=== PATIENT | female | born 1940 | race Caucasian/White ===

== ENCOUNTER 2020-03-19 16:38 | Emergency (ER) | payer MEDICARE, SELFPAY ==
[2020-03-19 17:01] VITALS: BP 121/67; PULSE 75; RESP 18; TEMP 37; BMI 25.7
--- NOTE | 2020-03-19 17:24 | ECG_ITS ---
Test Reason : STROKE Blood Pressure : / mmHG Vent. Rate : 071 BPM Atrial Rate : 071 BPM P-R Int : 146 ms QRS Dur : 088 ms QT Int : 424 ms P-R-T Axes : 000 001 032 degrees QTc Int : 460 ms Normal sinus rhythm Normal ECG When compared with ECG of 14-MAR-2019 07:20, No significant change was found Referred By: Albin Bejarano Electronically Signed By:ANDREINA DE LEON MD
--- NOTE | 2020-03-19 17:24 | CT_ITS ---
EXAMINATION: CT HEAD WITHOUT CONTRAST CLINICAL INFORMATION: Headache. Dysarthria since this a.m. COMPARISON: None TECHNIQUE: Contiguous axial imaging was performed from the skull base to vertex without intravenous administration of contrast. Coronal and sagittal reformatted images are performed at the CT scanner This CT examination was performed using dose optimization techniques as appropriate, variously including the following: *Automated exposure control *Adjustment of mA and/or kV according to patient size (this includes techniques or standardized protocols for targeted exams where dose is matched to indication/reason for exam; i.e. extremities or head) *Use of iterative reconstruction technique DLP: 699 mGy-cm FINDINGS: There is no evidence of acute intracranial hemorrhage or territorial infarction. No abnormal mass effect or midline shift is seen. Connor to white matter differentiation is well preserved. No extra-axial fluid collections are identified. There is atrophy with prominence of the ventricles and the sulci and hypodensity of the periventricular white matter due to chronic small vessel ischemic disease. There are vascular calcifications of the internal carotid arteries bilaterally. The osseous structures and soft tissues are normal. Lobular mucosal thickening at the dependent right maxillary sinus. The mastoid air cells and middle ear cavities are normally aerated. CT/CT head/brain wo con IMPRESSION: No acute intracranial pathology.
[2020-03-19 17:50] LABS: Glucose, Whole Blood 78 mg/dL (60-115)
--- NOTE | 2020-03-19 18:22 | ED.NEUROSD ---
HPI - Neuro Symptoms/Deficit General Chief Complaint: Stroke Stated Complaint: STRKE LIKE SX PER FAM @ 3PM Time Seen by Provider: 03/19/20 17:24 Source: patient Mode of arrival: ambulatory Limitations: no limitations History of Present Illness HPI Narrative: patient's history of occasional migraine headaches had headache left-sided around 21:00 yesterday similar to migraine headache got better when she woke up in the morning around 11:00 o'clock when she called her daughter she noticed that she is not speaking the right words patient denies any headache at that time after arrival patient still had some word-finding difficulty speaking the wrong word but comprehension is normal and articulation is normal no focal deficit Onset (ago): hour(s) Time: 11:00 Timing confirmed by: family member Location: speech History of same: No Severity: mild Relieving factors: none Exacerbating factors: none Context: sudden onset On Anticoagulants: No Associated symptoms: denies other symptoms and headaches Treatments Prior to Arrival: none Related Data Previous Rx's Medication Instructions Recorded aspirin 81 mg PO DAILY #30 tab 03/19/20 Allergies Allergy/AdvReac Type Severity Reaction Status Date / Time No Known Allergies Allergy Unverified 01/30/20 16:04 [No Known Allergies*] Review of Systems Review of Systems: REVIEW OF SYSTEMS: Pertinent positives and negatives are stated above in the history. GEN: no fevers, chills, fatigue HEENT: no nasal congestion, sore throat, ear pain NEURO: no dizziness, focal weakness PULM: no cough, shortness of breath CV: no chest pain, palpitations, LE edema ABD: no abdominal pain, nausea, vomiting, diarrhea : no dysuria, urgency, frequency SKIN: no rash ROS otherwise negative x 10 PMFSH Social History Social History Alcohol intake: unknown Smoking Status: Unknown if ever smoked Use of substances other than those prescribed or required for medical reasons: No Advance Directives: No Advance Directives Information Provided: Yes Physical Exam Vital Signs: Vital Signs: Last Vital Signs Temp 98.6 F 03/19/20 17:01 Pulse 79 03/19/20 20:00 Resp 15 03/19/20 20:00 BP 147/56 H 03/19/20 20:00 Pulse Ox 98 03/19/20 20:00 Body Mass Index 25.7 VITAL SIGNS: Reviewed. GENERAL: Well developed, well nourished, in no acute distress. HEAD: Normocephalic/atraumatic, EYES: PERRLA No pallor/icterus noted NOSE: Nares patent bilateral OROPHARYNX: Oral mucosa moist no oral lesions NECK: Supple, no adenopathy LUNGS: Normal breath sounds. No adventitious sounds or accessory muscle use CARDIOVASCULAR: Regular rate and rhythm without noted murmurs, no JVD or lower extremity edema. ABDOMEN: Soft, non-tender, non-distended with normal bowel sounds. No rigidity. No guarding. No palpable masses or hernias noted MUSCULOSKELETAL: No tenderness, deformities, EXTREMITIES: No cyanosis or edema. SKIN: no rashes, ulcerations, jaundice, pallor, or petechiae NEUROLOGIC: Alert and oriented x 3. Strength and sensation to light touch were grossly intact normal speech Course Course Course Narrative: patient's CT head is negative for any acute infarct also CTA head and neck without any acute occlusion patient's symptoms likely from TIA symptoms have improved and back to normal at this time patient advised to take aspirin daily and follow up with neurologist MDM - Neuro Symptoms/Deficit Lab Data Result diagrams: 03/19/20 18:53 03/19/20 18:54 Labs: Lab Results 03/19/20 03/19/20 03/19/20 Range/Units 17:45 18:53 18:54 WBC 6.2 (4.8-10.8) X10*3/uL RBC 3.82 L (4.20-5.50) X10*6/uL Hgb 12.8 (12.0-16.0) g/dl Hct 38.4 (37-47) % MCV 100.5 H (80-98) fL MCH 33.5 H (27.0-33.0) pg MCHC 33.3 (31.0-35.0) g/dl RDW 13.6 (11.0-16.0) % Plt Count 211 (160-400) X10*3/uL MPV 9.9 (9.4-12.3) fL Immature Gran % (Auto) 0.3 (0.0-0.4) % Neut % (Auto) 62.9 (45-73) % Lymph % (Auto) 28.9 (20-40) % Nicholas % (Auto) 5.5 (2-11) % Eos % (Auto) 2.1 (0-4) % Baso % (Auto) 0.3 (0-2) % Lymph # (Auto) 1.8 (1.2-4.9) X10*3/uL Nicholas # (Auto) 0.3 (0.1-1.2) X10*3/uL Eos # (Auto) 0.1 (0.0-0.4) X10*3/uL Baso # (Auto) 0.0 (0.0-0.2) X10*3/uL Abs Immat Gran (auto) 0.02 (0.00-0.03) X10*3/uL Absolute Neuts (auto) 3.9 (2.0-8.3) X10*3/uL Absolute Nucleated RBC 0.000 (0.0-0.012) X10*3/uL Nucleated RBC % (auto) 0.0 (0.0-0.2) /100WBC PT 10.5 L (10.8-13.0) SEC INR 0.9 (0.9-1.1) APTT 40.0 H (24.1-38.0) SEC Sodium (135-145) mmol/L Potassium (3.3-5.1) mmol/l Chloride (96-108) mmol/L Carbon Dioxide (22-29) mmol/L Anion Gap (12-20) BUN (9-16) mg/dL Creatinine (0.5-1.4) mg/dL Estim Creat Clear Calc Estimated GFR POC Glucose 78 (60-115) mg/dL Random Glucose (60-115) mg/dL Calcium (8.4-10.2) mg/dL 03/19/20 Range/Units 18:54 WBC (4.8-10.8) X10*3/uL RBC (4.20-5.50) X10*6/uL Hgb (12.0-16.0) g/dl Hct (37-47) % MCV (80-98) fL MCH (27.0-33.0) pg MCHC (31.0-35.0) g/dl RDW (11.0-16.0) % Plt Count (160-400) X10*3/uL MPV (9.4-12.3) fL Immature Gran % (Auto) (0.0-0.4) % Neut % (Auto) (45-73) % Lymph % (Auto) (20-40) % Nicholas % (Auto) (2-11) % Eos % (Auto) (0-4) % Baso % (Auto) (0-2) % Lymph # (Auto) (1.2-4.9) X10*3/uL Nicholas # (Auto) (0.1-1.2) X10*3/uL Eos # (Auto) (0.0-0.4) X10*3/uL Baso # (Auto) (0.0-0.2) X10*3/uL Abs Immat Gran (auto) (0.00-0.03) X10*3/uL Absolute Neuts (auto) (2.0-8.3) X10*3/uL Absolute Nucleated RBC (0.0-0.012) X10*3/uL Nucleated RBC % (auto) (0.0-0.2) /100WBC PT (10.8-13.0) SEC INR (0.9-1.1) APTT (24.1-38.0) SEC Sodium 144 (135-145) mmol/L Potassium 4.3 (3.3-5.1) mmol/l Chloride 108 (96-108) mmol/L Carbon Dioxide 21 L (22-29) mmol/L Anion Gap 19 (12-20) BUN 29 H (9-16) mg/dL Creatinine 1.66 H (0.5-1.4) mg/dL Estim Creat Clear Calc 27.4 Estimated GFR 30 POC Glucose (60-115) mg/dL Random Glucose 78 (60-115) mg/dL Calcium 8.2 L (8.4-10.2) mg/dL NIH Stroke Scale Internal: Initial- Upon Arrival Level of Consciousness: Alert Level of Consciousness Questions: Answers both questions correctly Level of Consciousness Commands: Performs both tasks correctly Best Gaze: Normal Visual: No visual loss Facial Palsy: Normal Motor Arm (Right): No drift Motor Arm (Left): No drift Motor Leg (Right): No drift Motor Leg (Left): No drift Limb Ataxia: Absent Sensory: Normal Best Language: No aphasia Dysarthia: Normal Extinction and Inattention: No abnormality Score: 0 Discharge Plan Discharge Clinical Impression: Transient cerebral ischemia, Chronic kidney disease Patient Disposition: Home, Self-Care Instructions: Transient Ischemic Attack (ED), Chronic Kidney Disease (ED) Additional Instructions: take baby aspirin daily. Follow-up with neurologist as advised. Report to the ER if recurrence of the symptoms drink plenty of fluids tonight Prescriptions: New aspirin 81 mg tablet,delayed release (DR/EC) 81 mg PO DAILY Qty: 30 RF: 0 Referrals: Kyara Owens MD [Physician] - 1 week Interventions: ED Discharge Assessment Last Done: 03/19/20 20:39 Discharge Date/Time: 03/19/20 20:49
--- NOTE | 2020-03-19 18:31 | CT_ITS ---
EXAMINATION: CT ANGIOGRAM OF THE HEAD CT ANGIOGRAM OF THE NECK CLINICAL INFORMATION: Dysarthria with migraine headache. COMPARISON: CT scan of the head earlier 03/19/2020. TECHNIQUE: Test bolus series followed by intravenous administration 70 mL of Omnipaque 350. Helical imaging was performed in the axial plane from the mediastinum to the skull vertex. A post contrast CT scan of the head was obtained. The degree of stenosis is based off NASCET criteria. The data was processed at the medical technologist microbiology workstation for generation of MIP images. Three-dimensional volume rendered reformatted images were also generated at an offline 3-D workstation. This CT examination was performed using dose optimization techniques as appropriate, variously including the following: *Automated exposure control *Adjustment of mA and/or kV according to patient size (this includes techniques or standardized protocols for targeted exams where dose is matched to indication/reason for exam; i.e. extremities or head) *Use of iterative reconstruction technique DLP: 1463 mGy-cm. FINDINGS: CT Head: There is no evidence of acute intracranial hemorrhage or territorial infarction. No abnormal mass-effect or midline shift is seen. Connor to white matter differentiation is well preserved. No extra-axial fluid collections are identified. There is no abnormal enhancement. There is commensurate prominence the ventricles and sulci consistent with diffuse volume loss. Areas of low attenuation are noted in the periventricular and subcortical white matter, most consistent with chronic microvascular ischemic changes. There are atheromatous calcifications of the bilateral vertebral and cavernous internal carotid arteries. There are no acute osseous findings. There may be a small scalp hematoma in the high left parietal region. The mastoid air cells are well-aerated. There is mucoperiosteal thickening and retention cyst formation in the right maxillary sinus. CTA Neck: There are atheromatous calcifications of the aortic arch. The left vertebral artery arises directly off the arch, which is a normal variant. The great vessels of the neck are patent. There are atheromatous calcifications at the origin of the right subclavian artery. The common carotid arteries are patent bilaterally. There is slightly tortuous. There are atheromatous calcifications at the left carotid bifurcation with less than 50% stenosis. On the right, there is approximately 50% stenosis with calcified and noncalcified atheromatous plaques. More distally in the neck, both internal carotid arteries are patent with uniform caliber. The origins of the vertebral arteries are well-seen. The left vertebral artery is dominant. Both vertebral arteries are patent throughout their cervical course extending intradurally. Nonvascular: The thyroid gland has slightly heterogenous attenuation bilaterally. There are emphysematous changes in the upper lung jernigan bilaterally. There is no cervical lymphadenopathy. The parotid and submandibular glands appear normal. There are relatively extensive spondylitic and facet arthropathic changes in the mid and lower cervical spine. There are also severe spondylitic changes on the right at C2-C3. There are no acute osseous findings. There are periapical lucencies around the roots of right maxillary 2nd and 3rd molar tooth and left mandibular 1st premolar tooth. CTA Head: The supraclinoid internal carotid arteries are patent bilaterally, and the carotid termini appear normal. The middle and anterior cerebral arteries bilaterally demonstrate normal caliber with no evidence of focal stenosis, aneurysm or vascular malformation. There is normal arborization of the middle cerebral artery branches. The anterior communicating artery is normal. In the posterior circulation, the left vertebral artery is dominant, and the right vertebral artery ends primarily in the PICA. The basilar artery appears normal. The left posterior cerebral artery arises primarily off the anterior circulation, which is a normal variant. The posterior cerebral arteries have normal caliber. The venous sinuses opacify normally. CT/CT angio head neck stroke IMPRESSION: CT head and neck: 1. There are no acute bleeds or territorial infarcts. There are no masses or areas of abnormal enhancement. 2. There is diffuse loss and there are chronic microvascular ischemic changes. 3. There is no cervical lymphadenopathy. There are emphysematous changes in the upper lung zones bilaterally. CTA head and neck earlier 1. There are atheromatous changes of the bilateral carotid bifurcations. The central stenosis of the right carotid bifurcation, with less than 50% stenosis on the left. There are no flow-limiting stenoses. 2. Intracranially, there are atheromatous calcifications in the anterior and posterior circulations. There are no aneurysms, focal stenoses or vascular malformations.
[2020-03-19 19:07] LABS: MANUAL DIFF FLAG NO
[2020-03-19] MEDS: iohexoL 350 MG/ML 100 ML INFUS..BTL IV (19:07)
[2020-03-19 19:08] LABS: Basophils Percent Auto 0.3 % (0-2); Eosinophils Absolute Auto 0.1 X10*3/uL (0.0-0.4); Eosinophils Percent Auto 2.1 % (0-4); Hematocrit 38.4 % (37-47); Hemoglobin 12.8 g/dl (12.0-16.0); Imm Gran Abs Auto 0.02 X10*3/uL (0.00-0.03); Imm Gran Pct Auto 0.3 % (0.0-0.4); Lymphocytes Absolute Auto 1.8 X10*3/uL (1.2-4.9); Lymphocytes Percent Auto 28.9 % (20-40); Mean Corpuscular HGB Conc 33.3 g/dl (31.0-35.0); Mean Corpuscular Hemoglobin 33.5 pg (27.0-33.0); Mean Corpuscular Volume 100.5 fL (80-98); Mean Platelet Volume 9.9 fL (9.4-12.3); Monocytes Absolute Auto 0.3 X10*3/uL (0.1-1.2); Monocytes Percent Auto 5.5 % (2-11); Neutrophils Absolute Auto 3.9 X10*3/uL (2.0-8.3); Neutrophils Percent Auto 62.9 % (45-73); Platelet Count 211 X10*3/uL (160-400); Red Blood Count 3.82 X10*6/uL (4.20-5.50); Red Cell Distribution Width 13.6 % (11.0-16.0); White Blood Count 6.2 X10*3/uL (4.8-10.8)
[2020-03-19 19:22] LABS: INTERNATIONAL NORM RATIO 0.9 (0.9-1.1); Prothrombin Time 10.5 SEC (10.8-13.0)
[2020-03-19 19:27] LABS: Anion Gap 19 (12-20); Blood Urea Nitrogen 29 mg/dL (9-16); Calcium 8.2 mg/dL (8.4-10.2); Carbon Dioxide 21 mmol/L (22-29); Chloride 108 mmol/L (96-108); Creatinine Clr Calc Pharmacy 27.4; Estimated Glomerular Filt Rate 30; Glucose Random 78 mg/dL (60-115); Potassium 4.3 mmol/l (3.3-5.1); Sodium 144 mmol/L (135-145)
[2020-03-19 19:37] VITALS: BP 131/80; PULSE 79; RESP 15; O2SAT 98
[2020-03-19 20:00] VITALS: BP 147/56; PULSE 79; RESP 15; O2SAT 98
== END 2020-03-19 20:49 | disposition home or self-care (01) ==
PROVIDERS: Emergency Provider Internal Medicine
DX: G45.9 Transient cerebral ischemic attack, unspecified (principal); N18.9 Chronic kidney disease, unspecified; Z79.899 Other long term (current) drug therapy; Z79.82 Long term (current) use of aspirin
CPT/HCPCS: 36415; 70450; 70496; 70498; 80048; 82947; 85025; 85610; 85730; 93005; 99284; Q9967

== ENCOUNTER 2020-07-31 11:00 | Outpatient (RCR) | payer MEDICARE, SELFPAY | END 2020-08-12 15:50 | disposition other institution (70) | LOC: HO.PTCHIC 11:00 | PROVIDERS: PCP Internal Medicine; Visit Provider Internal Medicine | DX: G57.93 Unspecified mononeuropathy of bilateral lower limbs (principal); M79.605 Pain in left leg; M79.604 Pain in right leg | CPT/HCPCS: 97110; 97112; 97116 ==

== ENCOUNTER 2022-02-01 18:24 | Inpatient (IN) | payer MEDICARE, SELFPAY ==
--- NOTE | ~2022-02-01 | CT_ITS ---
EXAMINATION: CT ABDOMEN AND PELVIS WITH CONTRAST CLINICAL INFORMATION: Vomiting. COMPARISON: CT scan of the abdomen and pelvis dated 02/02/2022. TECHNIQUE: Multidetector volumetric images were obtained from the superior aspect of the liver through the pubic symphysis following administration 85 mL of Omnipaque 350 intravenous contrast. Sagittal and coronal reformatted images were obtained on the technologist's workstation. Oral contrast: No This CT examination was performed using dose optimization techniques as appropriate, variously including the following: *Automated exposure control *Adjustment of mA and/or kV according to patient size (this includes techniques or standardized protocols for targeted exams where dose is matched to indication/reason for exam; i.e. extremities or head) *Use of iterative reconstruction technique DLP: 632 mGy-cm FINDINGS: LUNG BASES: Mild elevation of the right hemidiaphragm. Very small bilateral pleural effusions and compressive atelectasis, right greater than left. No pericardial effusion. LIVER, GALLBLADDER, AND BILIARY TREE: Unremarkable. PANCREAS: Unremarkable. SPLEEN: Unremarkable. ADRENAL GLANDS: Unremarkable. KIDNEYS AND URETERS: Multiple small low-attenuation foci bilaterally demonstrating benign features, not requiring follow-up. No nephrolithiasis or hydroureteronephrosis. BLADDER: Unremarkable. GASTROINTESTINAL TRACT: The stomach is unremarkable. The persistent segment segments of the duodenum are moderately distended containing fluid with transition at the third segment without obstructing abnormality. The remainder of the small bowel shows scattered mild fluid and gas with air-fluid levels without significant dilatation. The terminal ileum is unremarkable. The colon shows scattered mild diverticulosis, most pronounced distally without surrounding abnormality. The pelvic anastomosis is intact. No associated abnormality. PERITONEUM: Mild perihepatic ascites. ABDOMINAL WALL: Increased anasarca, more pronounced inferiorly. LYMPH NODES: No lymphadenopathy. VASCULAR: Unremarkable. PELVIC VISCERA: Unremarkable. OSSEOUS STRUCTURES: Status post posterior fusion from L3 to L5. Anatomic alignment and no hardware abnormality. Moderate multilevel degenerative changes in the thoracolumbar spine. No acute or suspicious abnormality. CT/CT abdomen pelvis w IV con IMPRESSION: 1. Interval decrease in small bowel dilatation with scattered mildly prominent fluid-filled bowel loops and air-fluid levels. Findings are nonspecific, but could represent improving ileus or intermittent partial obstruction. Short-term supine and upright abdominal radiographs are recommended as clinically indicated to assess for change. 2. Mild peritoneal ascites represents mild interval increase. Increased anasarca and pleural effusions as well. 3. Several other incidental findings detailed above without significant change.
--- NOTE | ~2022-02-01 | CT_ITS ---
EXAMINATION: CT ABDOMEN AND PELVIS WITHOUT CONTRAST CLINICAL INFORMATION: Right upper and lower quadrant pain. COMPARISON: None TECHNIQUE: Multidetector volumetric imaging was performed from the superior aspect of the liver through the pubic symphysis. Sagittal and coronal reformatted images were obtained on the technologist's workstation. This CT examination was performed using dose optimization techniques as appropriate, variously including the following: *Automated exposure control *Adjustment of mA and/or kV according to patient size (this includes techniques or standardized protocols for targeted exams where dose is matched to indication/reason for exam; i.e. extremities or head) *Use of iterative reconstruction technique DLP: 574 mGy-cm FINDINGS: LUNG BASES: Elevation of the right hemidiaphragm. Mild bibasilar atelectasis. Coarse mitral annular calcifications. Probable small hiatal hernia. LIVER, GALLBLADDER, AND BILIARY TREE: Normal hepatic size and attenuation. No liver lesion. No biliary ductal dilation. The gallbladder is unremarkable with no evidence of radiopaque gallstones, gallbladder wall thickening, or obvious pericholecystic inflammatory changes. PANCREAS: Unremarkable. SPLEEN: Unremarkable. ADRENAL GLANDS: Unremarkable. KIDNEYS AND URETERS: The kidneys are normal in size, shape, and attenuation. No hydronephrosis, hydroureter, or calculi seen. No perinephric stranding. BLADDER: Unremarkable. GASTROINTESTINAL TRACT: Multiple mildly dilated loops of small bowel in the pelvis and right hemiabdomen including dilated loops located lateral to the ascending colon and interposed between the liver and the ventral abdominal wall. Transition point in the right lower quadrant on coronal image 43, axial image 50 and 51. Colon is decompressed. Mild colonic diverticulosis. No bowel wall thickening or pneumatosis. No free air. Small volume ascites. ABDOMINAL WALL: No significant hernia is appreciated. Coarse calcifications of the ventral abdominal wall at the level of the umbilicus. LYMPH NODES: No lymphadenopathy. VASCULAR: Normal caliber abdominal aorta. Mild to moderate vascular calcifications. PELVIC VISCERA: Status post hysterectomy. OSSEOUS STRUCTURES: No acute fracture or suspicious osseous lesion. Status post L3-L5 posterior spinal fusion with intact fixation. Solid ankylosis of the L3-S1 levels. Advanced multilevel degenerative disc disease in the lower thoracic and lumbar spine. Chronic height loss of several mid to lower thoracic vertebral bodies. Status post right total hip arthroplasty. CT/CT abdomen pelvis wo IV con IMPRESSION: 1. Findings consistent with small bowel obstruction with transition point in the right lower quadrant, which may be due to an adhesion or possibly internal hernia given bowel loops lateralized relative to the right colon and interposed between the liver and ventral abdominal wall. 2. Small volume free fluid/ascites. 3. No pneumatosis, appreciable bowel wall thickening, or evidence of perforation. 4. Elevation right hemidiaphragm.
--- NOTE | ~2022-02-01 | XR_ITS ---
EXAMINATION: XR ABDOMEN KUB CLINICAL INDICATION: Vomiting COMPARISON: Previous KUB 02/10/[address] of the abdomen and pelvis 02/11/2022 TECHNIQUE: AP view of the abdomen. FINDINGS: There are air-filled distended loops of bowel. There is no evidence of free air. There are new left paramedian lower abdominal skin cristo. There is a catheter in the pelvis. There are postsurgical changes to the lower lumbar spine and right hip replacement. XR/XR abdomen 1V IMPRESSION: Distended air-filled loops of bowel. This probably represents a postoperative ileus. Imaging follow-up recommended.
--- NOTE | ~2022-02-01 | CT_ITS ---
EXAMINATION: CT ABDOMEN AND PELVIS WITHOUT CONTRAST CLINICAL INFORMATION: Abdominal pain. Small bowel obstruction. COMPARISON: CT scan abdomen pelvis 02/01/2022 TECHNIQUE: Initial exam was performed without oral or IV contrast. Oral contrast was then administered and a second sequence of images obtained. No IV contrast was used. Multidetector volumetric imaging was performed from the superior aspect of the liver through the pubic symphysis. Sagittal and coronal reformatted images were obtained on the technologist's workstation. This CT examination was performed using dose optimization techniques as appropriate, variously including the following: *Automated exposure control *Adjustment of mA and/or kV according to patient size (this includes techniques or standardized protocols for targeted exams where dose is matched to indication/reason for exam; i.e. extremities or head) *Use of iterative reconstruction technique DLP: 772 mGy-cm FINDINGS: Exam limited by breathing motion. Patient's arms over the lower chest causes artifact. LUNG BASES: There is airspace disease of atelectasis or pneumonia with small air bronchograms at the right lung base. The right diaphragm is elevated above the left. Heart size enlarged. Calcifications of the mitral valve annulus. Calcifications of the aortic valve. LIVER, GALLBLADDER, AND BILIARY TREE: The liver is normal in size, shape, and attenuation. No focal hepatic lesion or biliary ductal dilatation is present. The gallbladder is unremarkable with no evidence of radiopaque gallstones, gallbladder wall thickening, or obvious pericholecystic inflammatory changes. PANCREAS: Unremarkable. SPLEEN: Unremarkable. ADRENAL GLANDS: Unremarkable. KIDNEYS AND URETERS: The kidneys are normal in size, shape, and attenuation. No hydronephrosis, hydroureter, or calculi seen. No perinephric stranding. BLADDER: Unremarkable. GASTROINTESTINAL TRACT: There is a distal small bowel obstruction. Small bowel loops are dilated lower right pelvis where there is a transition point. The terminal ileum is decompressed. There is fecal-like material within the distal small bowel at the point of obstruction. Small bowel obstruction slightly worse in severity than prior exam of 02/01/2022. The large bowel is decompressed. There is small volume of stool and some gas in the right colon. No bowel wall thickening or edema. No abdominal mass or inflammation. Small volume of fluid in the cul-de-sac. No evidence of mesenteric twist. Normal variant of bowel interposed between the liver and the abdominal wall. ABDOMINAL WALL: There are coarse calcifications at the umbilicus. No ventral wall hernia. LYMPH NODES: Normal. VASCULAR: Scattered vascular calcifications of aorta. No aneurysm. PELVIC VISCERA: Status post hysterectomy. No pelvic mass. OSSEOUS STRUCTURES: Status post fusion with transpedicular screws and bilateral laminectomy L3-L5. Osseous fusion L5-S1. Multilevel degenerative spondylosis of the thoracic and lumbar spine. Status post right hip replacement. CT/CT abdomen pelvis wo IV con IMPRESSION: Distal small bowel obstruction with transition point in the low pelvis. No bowel wall thickening or edema. No mass evident. Small volume of fluid in the cul-de-sac. No inflammation or free air. Small bowel obstruction slightly worse than prior study 02/01/2022. Fleischner guidelines were followed.
--- NOTE | ~2022-02-01 | XR_ITS ---
EXAMINATION: XR CHEST CLINICAL INFORMATION: Congestion COMPARISON: 02/03/2022 TECHNIQUE: Frontal view of the chest was obtained. FINDINGS: There is elevation of the right hemidiaphragm, with suspected adjacent basilar atelectasis. Additional subsegmental atelectasis is present in the mid to basilar left lung. No evidence of pneumothorax or significant pleural effusion. Central vasculature appears somewhat prominent, without overt edema. Cardiac silhouette is prominent though may be accentuated by low lung volumes. Severe degenerative change of the right glenohumeral joint. Degenerative changes are also noted in the spine. XR/XR chest 1V IMPRESSION: Elevated right hemidiaphragm with suspected adjacent basilar atelectasis. Central vasculature appears somewhat prominent, without overt edema.
--- NOTE | ~2022-02-01 | XR_ITS ---
EXAMINATION: XR CHEST CLINICAL INFORMATION: Wheezing and dyspnea. COMPARISON: 02/08/2022 chest radiograph. TECHNIQUE: Frontal view of the chest was obtained. FINDINGS: Support devices: Interval removal of left internal jugular central venous catheter. Moderate elevation right hemidiaphragm. Increased opacities in the left mid and lower lung field. The heart and mediastinal structures are unremarkable. XR/XR chest 1V IMPRESSION: Increased opacities in the left mid and lower lung jernigan suggest infiltrates and/or atelectasis.
--- NOTE | ~2022-02-01 | XR_ITS ---
EXAMINATION: XR ABDOMEN COMPLETE CLINICAL INDICATION: Vomiting. COMPARISON: CT abdomen and pelvis from 02/02/2022. TECHNIQUE: 3 views of the abdomen. FINDINGS: Although small bowel loops are mildly dilated and have air-fluid levels, the degree of bowel dilatation has decreased/improved compared to 02/02/2022. The bowel gas is observed to level the rectum. Skin cristo project over the abdominal wall. Diverticula of the descending colon are visualized. No evidence of pneumoperitoneum. No renal calculi. Instrumented posterior spinal fusion at L3-L5 and laminectomy defects of the lower lumbar spine. Degenerative disc disease of the visualized lower thoracic and lumbar spine. The visualized right total hip arthroplasty hardware is well-positioned. XR/XR abdomen 3V IMPRESSION: Loops of small bowel are mildly dilated and have air-fluid levels. The degree of bowel distention is significantly improved compared to 02/02/2022. This could represent mild residual dilatation from recently treated bowel obstruction or mild postoperative ileus. No evidence of a pneumoperitoneum.
--- NOTE | ~2022-02-01 | FL_ITS ---
EXAMINATION: FL SMALL BOWEL SERIES CLINICAL INFORMATION: Vomiting, postop day 10. COMPARISON: KUB 02/13/2022 and 02/15/2022. TECHNIQUE: Following a nurse leader image of the abdomen, contrast was administered orally, and interval abdominal radiographs were performed to assess for contrast progression through the small bowel. Following contrast transit through the small bowel and into the colon, the patient was placed on the fluoroscopy table, and multiple spot images were obtained. FINDINGS: Ecologist Technician image of the abdomen demonstrates partially obstructed small bowel loops likely postop ileus. There is the right hip prosthesis and posterior spinal hardware and disc prosthesis for lumbar spine fusion. There is abnormal transit time of contrast material through the small bowel, with contrast present in the colon by 9.5 hours. Small bowel loops are mildly prominent throughout the entire abdomen. The jejunal and ileal fold patterns are normal, without evidence of abnormal thickening. No fixed regions of luminal narrowing are seen to suggest stricturing. The terminal ileum demonstrates a normal appearance. FLUOROSCOPY TIME: 0 DOSE AREA PRODUCT: 0 uGy-m2 (microgray-meter squared) FL/FL small bowel follow through IMPRESSION: 1. Prominent small bowel loops throughout the abdomen on initial nurse leader images which are similar to previous study 02/13/2022. 2. There is abnormal transit of oral contrast in the small bowel with contrast reaching ascending colon and terminal ileum by 9.5 hours.
--- NOTE | ~2022-02-01 | CT_ITS ---
EXAMINATION: CT ABDOMEN AND PELVIS WITHOUT CONTRAST CLINICAL INFORMATION: Bacteremia COMPARISON: Previous small bowel follow-through 02/15/2022 CT of the abdomen and pelvis January 2022 TECHNIQUE: Multidetector volumetric imaging was performed from the superior aspect of the liver through the pubic symphysis. Sagittal and coronal reformatted images were obtained on the technologist's workstation. This CT examination was performed using dose optimization techniques as appropriate, variously including the following: *Automated exposure control *Adjustment of mA and/or kV according to patient size (this includes techniques or standardized protocols for targeted exams where dose is matched to indication/reason for exam; i.e. extremities or head) *Use of iterative reconstruction technique DLP: 1036 mGy-cm FINDINGS: LUNG BASES: There is elevation of the right hemidiaphragm. There is bibasilar atelectasis/consolidation, right greater than left. This is similar on the right and increased on the left compared to January 2022 exam. LIVER, GALLBLADDER, AND BILIARY TREE: The liver is normal in size, shape, and attenuation. No focal hepatic lesion or biliary ductal dilatation is present. The gallbladder is not well-visualized and appears contracted. PANCREAS: Unremarkable. SPLEEN: Unremarkable. ADRENAL GLANDS: Unremarkable. KIDNEYS AND URETERS: The kidneys are normal in size, shape, and attenuation. No hydronephrosis, hydroureter, or calculi seen. No perinephric stranding. BLADDER: The bladder is well-distended but otherwise unremarkable. GASTROINTESTINAL TRACT: There is stool the distal colon. There are fluid-filled loops of small and large bowel. There is diverticulosis of the large bowel. No evidence of diverticulitis, colitis or enteritis is. There is no ascites. There is no free air. ABDOMINAL WALL: No significant hernia is appreciated. LYMPH NODES: Normal. VASCULAR: There is evidence of atherosclerotic disease. No aneurysm. PELVIC VISCERA: Unremarkable. OSSEOUS STRUCTURES: There is a right hip replacement. There are postsurgical changes to the lumbar spine. There is severe scoliosis and degenerative changes of the spine. CT/CT abdomen pelvis wo IV con IMPRESSION: Increasing atelectasis or small infiltrates at the left lung base. Dense consolidation with air bronchograms in the right middle and right lower lobes and elevation of the right hemidiaphragm unchanged from prior exam. Diverticulosis. No evidence of diverticulitis. Fluid-filled loops of small and proximal large bowel probably representing an ileus. No evidence of enteritis colitis or diverticulitis. Fleischner guidelines were followed.
--- NOTE | ~2022-02-01 | CT_ITS ---
EXAMINATION: CT HEAD WITHOUT CONTRAST CLINICAL INFORMATION: Right-sided weakness. COMPARISON: Head CT and CTA scan dated 03/19/2020. TECHNIQUE: Contiguous axial imaging was performed from the skull base to vertex without intravenous administration of contrast. Coronal and sagittal reformatted images were obtained. This CT examination was performed using dose optimization techniques as appropriate, variously including the following: *Automated exposure control *Adjustment of mA and/or kV according to patient size (this includes techniques or standardized protocols for targeted exams where dose is matched to indication/reason for exam; i.e. extremities or head) *Use of iterative reconstruction technique DLP: 847 mGy-cm FINDINGS: There is mild moderate widening of the cortical sulci and associated ventriculomegaly. Periventricular microvascular changes are seen. The lateral ventricles are symmetrical. The third and fourth ventricles are in their normal midline position. The basilar and prepontine cisterns are unremarkable. There is no acute intra or extracerebral abnormality. There is no mass effect or midline shift. Sections through the bony calvarium are unremarkable. The orbits are intact. The paranasal sinuses are clear. The mastoid air cells are clear. CT/CT head/brain wo IV con IMPRESSION: No acute intracranial pathology.
--- NOTE | ~2022-02-01 | XR_ITS ---
EXAMINATION: XR CHEST 2 VIEWS CLINICAL INFORMATION: Oxygen requirement; question pneumonia. COMPARISON: CT abdomen and pelvis dated 02/02/2022. TECHNIQUE: Frontal and lateral views of the chest were obtained. FINDINGS: The heart, great vessels, pulmonary vasculature and mediastinum are unremarkable. An endotracheal tube is seen, with tip situated approximately 1.1 cm superior to the tanner. A left internal jugular central venous catheter is seen, with tip positioned in the superior vena cava. A nasogastric tube is seen, with tip situated within the left upper quadrant. There is elevation of the right hemidiaphragm. There is persistent mild bibasilar linear scar/subsegmental atelectasis, consistent with comparison CT findings. There are severe mitral annular calcifications. No infiltrate, effusion or pneumothorax is seen. There is no acute osseous abnormality. There is an old, healed left fifth rib fracture. There are degenerative changes of the shoulders. XR/XR chest 1V IMPRESSION: 1. There is persistent mild bibasilar linear scar/subsegmental atelectasis. 2. There is moderate elevation of the right hemidiaphragm. 3. Support tubes and catheters are positioned as detailed.
[2022-02-01 18:44] VITALS: BP 126/88; BP 149/85; PULSE 88; PULSE 89; RESP 20; TEMP 36.8; O2SAT 100; O2SAT 95; BMI 27.5
--- NOTE | 2022-02-01 19:04 | ECG_ITS ---
Test Reason : ABD PAIN Blood Pressure : / mmHG Vent. Rate : 082 BPM Atrial Rate : 082 BPM P-R Int : 138 ms QRS Dur : 080 ms QT Int : 368 ms P-R-T Axes : -13 014 017 degrees QTc Int : 429 ms Normal sinus rhythm Normal ECG When compared with ECG of 19-MAR-2020 18:24, No significant change was found Referred By: Barbara Cali Electronically Signed By:GARDENIA HERCULES
--- NOTE | 2022-02-01 19:10 | ED.ABDPAIN ---
HPI - Abdominal Pain General Chief Complaint: Abdominal Pain Stated Complaint: lower abdominal pain Time Seen by Provider: 02/01/22 18:45 Source: patient and EMS Mode of arrival: EMS Limitations: no limitations History of Present Illness HPI narrative: patient comes emergency room complaining right abdominal pain and suprapubic pain for the last 3 days. Patient states that she ate some fish on Four days ago in the evening, started experiencing vomiting and diarrhea the next day. patient states that for the last couple of days she has been taking Pepto-Bismol, she has not experienced any further episodes of vomiting or diarrhea. However, patient continues having abdominal cramping and right-sided abdominal pain, the pain radiates towards the back. Patient denies URI or UTI symptoms, denies blood in the urine or stool. Denies fever or chills Related Data Previous Rx's Medication Instructions Recorded aspirin 81 mg tablet,delayed 81 mg PO DAILY #30 tabs 03/19/20 release Allergies Allergy/AdvReac Type Severity Reaction Status Date / Time No Known Allergies Allergy Unverified 01/30/20 16:04 [No Known Allergies*] Review of Systems Review of Systems Constitutional : No Weight loss, No Fever, No Chills, No Night Sweats, No Fatigue, No Malaise ENT/Mouth : No Hearing loss, No Ear Pain, No Nasal Congestion, No Sinus Pain, No Hoarseness, No sore throat, No Rhinorrhea, No Swallowing Difficulty Eyes: No Eye Pain, No Swelling, No Redness, No Foreign Body, No Discharge, No Vision Changes Cardiovascular : No Chest Pain, No SOB, No Dyspnea on Exertion, No Orthopnea, No Edema, No Palpitations Respiratory : No Cough, No Sputum, No Wheezing, No Smoke Exposure, No Dyspnea Gastrointestinal : complaining of nausea, vomiting and diarrhea, complaining suprapubic and right upper and lower quadrant cramping, No Hematochezia, No Melena Genitourinary : no irregular bleeding, No Dysuria, No Urinary Frequency, No Hematuria, No Urinary Incontinence, No Urgency, No Flank Pain, No Urinary Flow Changes, No Hesitancy Musculoskeletal : No joint pain, No Myalgias, No Joint Swelling Skin : No Skin Lesions, No rash Neuro : No Weakness, No Numbness, No Paresthesias, No Loss of Consciousness, No Dizziness, No Headache Psych : No Anxiety/Panic, No Depression, No SI/HI/AH/VH, No Social Issues, Heme/Lymph: No Bruising, No Bleeding,No Lymphadenopathy Endocrine : No Polyuria, No Polydipsia, No Temperature Intolerance [facility] Past Medical History Medical History (Updated 02/01/22 @ 22:40 by Barbara Cali MD) Anxiety Gout Hyperlipidemia Hypertension Surgical History (Updated 02/01/22 @ 19:15 by Barbara Cali MD) History of right hip replacement Social History Social History Alcohol intake: unknown Advance Directives: Yes Advance Directives Information Provided: No Advance Directives on File: No Physical Exam ED Vital Signs: Vital Signs - 24 hr 02/01/22 18:44 02/01/22 20:51 Temperature 98.3 F 98.8 F Pulse Rate 89 82 Respiratory Rate 20 18 Blood Pressure 149/85 H 168/96 H Pulse Oximetry 95 94 Oxygen Delivery Method Room Air Room Air BMI result Body Mass Index 27.5 Const Other: Appearance: Alert. Oriented X3. No acute distress. Eyes: Pupils equal, round and reactive to light. ENT: Pharynx normal. Neck: Normal inspection. Neck supple. No lymph nodes noted. No crepitus CVS: Normal heart rate and rhythm. Pulses normal. Normal S1 and S2 Respiratory: No respiratory distress. Breath sounds normal. No Wheezing. No rales Abdomen: Soft , mild to moderate tenderness to palpation over the right upper and lower quadrants, no rebound, no guarding, no rigidity Skin: Skin warm and dry. Normal skin color. Normal skin turgor. Extremities: No lower extremity edema. No Lacerations. No Rash Neuro: Oriented X 3. No motor deficit. No sensory deficit. Moving all extremities. No slurred speech. CN 2 through 12 grossly intact Psych: calm, cooperative, normal affect Course Course Course Narrative: patient denies any vomiting or diarrhea for the last 48 hours. Patient getting IV fluids, all of patient's labs and imaging pending. 20:29, patient's magnesium is 1.4, patient receiving IV magnesium [address]: ?Findings consistent with small bowel obstruction with transition point in the right lower quadrant, which may be due to an adhesion or possibly internal hernia given bowel loops lateralized relative to the right colon and interposed between the liver and ventral abdominal wall. I discussed the CT findings with Dr. Weiss, who recommends to have Medicine admit the patient patient has not had any nausea or vomiting or any bowel movements since she has been in the emergency room MDM - Abdominal Pain Lab Data Result diagrams: 02/01/22 19:23 02/01/22 19:23 Labs: Lab Results 02/01/22 02/01/22 02/01/22 Range/Units 19:23 19:23 19:23 WBC 8.6 (4.8-10.8) X10*3/uL RBC 3.60 L (4.20-5.50) X10*6/uL Hgb 11.7 L (12.0-16.0) g/dl Hct 35.8 L (37.0-47.0) % MCV 99.4 H (80.0-98.0) fL MCH 32.5 (27.0-33.0) pg MCHC 32.7 (31.0-35.0) g/dl RDW 15.3 (11.0-16.0) % Plt Count 224 (160-400) X10*3/uL MPV 9.4 (9.4-12.3) fL Immature Gran % (Auto) 0.2 (0.0-0.4) % Neut % (Auto) 86.7 H (45-73) % Lymph % (Auto) 6.0 L (20-40) % [place] % (Auto) 6.8 (2-11) % Eos % (Auto) 0.2 (0-4) % Baso % (Auto) 0.1 (0-2) % Lymph # (Auto) 0.5 L (1.2-4.9) X10*3/uL [place] # (Auto) 0.6 (0.1-1.2) X10*3/uL Eos # (Auto) 0.0 (0.0-0.4) X10*3/uL Baso # (Auto) 0.0 (0.0-0.2) X10*3/uL Abs Immat Gran (auto) 0.02 (0.00-0.03) X10*3/uL Absolute Neuts (auto) 7.4 (2.0-8.3) x10*3/uL Absolute Nucleated RBC 0.000 (0.0-0.012) X10*3/uL Nucleated RBC % (auto) 0.0 (0.0-0.2) /100WBC Sodium 141 (135-145) mmol/L Potassium 4.7 (3.3-5.1) mmol/L Chloride 99 (96-108) mmol/L Carbon Dioxide 24 (22-29) mmol/L Anion Gap 23 H (12-20) BUN 32 H (9-16) mg/dL Creatinine 1.76 H (0.5-1.4) mg/dL Estim Creat Clear Calc 21.3 Estimated GFR 28 Random Glucose 112 (60-115) mg/dL Lactic Acid (0.5-2.0) mmol/L Calcium 9.8 D (8.4-10.2) mg/dL Magnesium 1.4 L* (1.6-2.6) mg/dL Total Bilirubin 0.5 (0.0-1.0) mg/dL Direct Bilirubin 0.2 (0.0-0.5) mg/dL AST 39 H (5-31) U/L ALT 20 (0-31) U/L Alkaline Phosphatase 112 (39-117) U/L Total Protein 7.3 (6.5-8.0) g/dL Albumin 4.4 (3.5-5.0) g/dL COVID-19 (JARRED) Negative (Negative) COVID-19 Clin Com See Note 02/01/22 Range/Units 19:23 WBC (4.8-10.8) X10*3/uL RBC (4.20-5.50) X10*6/uL Hgb (12.0-16.0) g/dl Hct (37.0-47.0) % MCV (80.0-98.0) fL MCH (27.0-33.0) pg MCHC (31.0-35.0) g/dl RDW (11.0-16.0) % Plt Count (160-400) X10*3/uL MPV (9.4-12.3) fL Immature Gran % (Auto) (0.0-0.4) % Neut % (Auto) (45-73) % Lymph % (Auto) (20-40) % [place] % (Auto) (2-11) % Eos % (Auto) (0-4) % Baso % (Auto) (0-2) % Lymph # (Auto) (1.2-4.9) X10*3/uL [place] # (Auto) (0.1-1.2) X10*3/uL Eos # (Auto) (0.0-0.4) X10*3/uL Baso # (Auto) (0.0-0.2) X10*3/uL Abs Immat Gran (auto) (0.00-0.03) X10*3/uL Absolute Neuts (auto) (2.0-8.3) x10*3/uL Absolute Nucleated RBC (0.0-0.012) X10*3/uL Nucleated RBC % (auto) (0.0-0.2) /100WBC Sodium (135-145) mmol/L Potassium (3.3-5.1) mmol/L Chloride (96-108) mmol/L Carbon Dioxide (22-29) mmol/L Anion Gap (12-20) BUN (9-16) mg/dL Creatinine (0.5-1.4) mg/dL Estim Creat Clear Calc Estimated GFR Random Glucose (60-115) mg/dL Lactic Acid 0.7 (0.5-2.0) mmol/L Calcium (8.4-10.2) mg/dL Magnesium (1.6-2.6) mg/dL Total Bilirubin (0.0-1.0) mg/dL Direct Bilirubin (0.0-0.5) mg/dL AST (5-31) U/L ALT (0-31) U/L Alkaline Phosphatase (39-117) U/L Total Protein (6.5-8.0) g/dL Albumin (3.5-5.0) g/dL COVID-19 (JARRED) (Negative) COVID-19 Clin Com Critical Care Time Critical Care Time Critical Care Time: Yes Total Critical Care Time: 50 Attestation: I have personally provided critical care time. Time includes review of lab data, radiology results, discussion with consultants, and monitoring for potential decompensation. Intervention performed as documented. Discharge Plan Discharge Clinical Impression: Small bowel obstruction Patient Disposition: Admitted As Inpatient
[2022-02-01] MEDS: 0.9 % Sodium Chloride 1,000 ML 999 ML IVCONT (19:27)
[2022-02-01 19:29] LABS: MANUAL DIFF FLAG NO
[2022-02-01 19:31] LABS: Basophils Percent Auto 0.1 % (0-2); Eosinophils Percent Auto 0.2 % (0-4); Hematocrit 35.8 % (37.0-47.0); Hemoglobin 11.7 g/dl (12.0-16.0); Imm Gran Abs Auto 0.02 X10*3/uL (0.00-0.03); Imm Gran Pct Auto 0.2 % (0.0-0.4); Lymphocytes Absolute Auto 0.5 X10*3/uL (1.2-4.9); Mean Corpuscular HGB Conc 32.7 g/dl (31.0-35.0); Mean Corpuscular Hemoglobin 32.5 pg (27.0-33.0); Mean Corpuscular Volume 99.4 fL (80.0-98.0); Mean Platelet Volume 9.4 fL (9.4-12.3); Monocytes Absolute Auto 0.6 X10*3/uL (0.1-1.2); Monocytes Percent Auto 6.8 % (2-11); Neutrophils Absolute Auto 7.4 x10*3/uL (2.0-8.3); Neutrophils Percent Auto 86.7 % (45-73); Platelet Count 224 X10*3/uL (160-400); Red Cell Distribution Width 15.3 % (11.0-16.0); White Blood Count 8.6 X10*3/uL (4.8-10.8)
[2022-02-01 19:48] LABS: COVID-19 Test Negative (Negative)
[2022-02-01 19:55] LABS: Lactic Acid 0.7 mmol/L (0.5-2.0)
[2022-02-01 20:19] LABS: Alanine Aminotransferase 20 U/L (0-31); Albumin Level 4.4 g/dL (3.5-5.0); Alkaline Phosphatase 112 U/L (39-117); Anion Gap 23 (12-20); Aspartate Amino Transferase 39 U/L (5-31); Bilirubin Direct 0.2 mg/dL (0.0-0.5); Bilirubin Total 0.5 mg/dL (0.0-1.0); Blood Urea Nitrogen 32 mg/dL (9-16); Calcium 9.8 mg/dL (8.4-10.2); Carbon Dioxide 24 mmol/L (22-29); Chloride 99 mmol/L (96-108); Creatinine Clr Calc Pharmacy 21.3; Estimated Glomerular Filt Rate 28; Glucose Random 112 mg/dL (60-115); Magnesium 1.4 mg/dL (1.6-2.6); Potassium 4.7 mmol/L (3.3-5.1); Sodium 141 mmol/L (135-145); Total Protein 7.3 g/dL (6.5-8.0)
[2022-02-01 20:51] VITALS: BP 168/96; PULSE 82; RESP 18; TEMP 37.1; O2SAT 94
[2022-02-01] MEDS: Magnesium Sulfate/H2O 2 GM/50 ML PIGGYBACK IV (20:59)
[2022-02-01] MEDS: Acetaminophen 325 MG TABLET 975 MG PO (21:17)
--- NOTE | 2022-02-01 22:41 | P.CONGS_ITS ---
History of Present Illness Consult details Consult date: 02/01/22 Reason for consult: abdominal pain Narrative: The pt is an 81 woman complaining right abdominal pain and suprapubic pain for the last? 3 days.? Patient states that she ate some fish on four days ago in the evening, started experiencing vomiting and diarrhea? the next day. No one else at home experienced vomiting or or diarrhea but she was the only person who ate the fish.? The patient states that for the last couple of days she has been taking Pepto-Bismol, she has not experienced any further episodes of vomiting or diarrhea.? However, patient continues having abdominal cramping and right-sided abdominal pain, the pain radiates towards? the back.? Patient denies URI or UTI symptoms, denies blood in the urine or stool.? Denies fever or chills. It's reported the pt had a hysterectomy due to rectal prolapse. This morning, the patient reports that she is passing gas but not having any tomas wel movements nor diarrhea. She does note that she is belching but does not feel bloated and overall feels improved since admission last night. She denies any chest pain, difficulty breathing or shortness of breath. She has no localizing neurologic symptoms. She denies any personal or family history of GI malignancy. Review of Systems Review of Systems: Yes all other systems are reviewed and are negative Constitutional: Constitutional: Reports as per [facility] Past Medical History Medical History Anxiety Chronic kidney disease Gout Peripheral neuropathy Surgical History Surgical History H/O vaginal hysterectomy History of right hip replacement Social History Social History Alcohol intake: unknown Advance Directives: Yes Advance Directives Information Provided: No Advance Directives on File: No Meds Allergies Allergy/AdvReac Type Severity Reaction Status Date / Time No Known Allergies Allergy Unverified 01/30/20 16:04 [No Known Allergies*] Home Medications Medication Instructions Recorded Confirmed Last Taken Type atorvastatin 20 mg tablet 1 tab PO DAILY 02/02/22 02/02/22 Unknown History pregabalin 75 mg capsule 1 cap PO BID 02/02/22 02/02/22 Unknown History sertraline 100 mg tablet 1 tab PO DAILY 02/02/22 02/02/22 Unknown History Physical Exam Vital Signs: Vital Signs: Last Vital Signs Temp 98.8 F 02/01/22 20:51 Pulse 82 02/01/22 20:51 Resp 18 02/01/22 20:51 BP 168/96 H 02/01/22 20:51 Pulse Ox 94 02/01/22 20:51 O2 Del Method 02/01/22 20:51 BMI result Body Mass Index 27.5 The patient is non-toxic & in good spirits NC/AT, PERRLA, EOMI Mood, affect & judgment all appear appropriate Sclera anicteric conjunctiva pink and moist Oropharynx is clear with no aphthous ulcers, Mallampati class 4, mucous membranes moist Neck is supple with no masses, adenopathy or bruits Thyroid is nontender and free of dominant masses Heart is regular, normal S1-S2 no rubs or murmurs Lungs are clear and equal anteriorly with no audible wheezing, rubs or dullness to percussion No CVA tenderness present Abdomen is soft with no peritoneal sign or tenderness with no demonstrable hernias. No HSM, rebound, rigidity, guarding, masses or bruits are present. She has hypoactive bowel sounds this morning. Rectal exam is deferred Skin has decreased turgor as expected with her age and is free of rashes Extremities free of cyanosis clubbing edema Results Labs Result diagrams: 02/02/22 06:09 02/02/22 06:09 Labs: Abnormal lab results 02/01/22 02/01/22 Range/Units 19:23 19:23 RBC 3.60 L (4.20-5.50) X10*6/uL Hgb 11.7 L (12.0-16.0) g/dl Hct 35.8 L (37.0-47.0) % MCV 99.4 H (80.0-98.0) fL Neut % (Auto) 86.7 H (45-73) % Lymph % (Auto) 6.0 L (20-40) % Lymph # (Auto) 0.5 L (1.2-4.9) X10*3/uL Anion Gap 23 H (12-20) BUN 32 H (9-16) mg/dL Creatinine 1.76 H (0.5-1.4) mg/dL Magnesium 1.4 L* (1.6-2.6) mg/dL AST 39 H (5-31) U/L Short CBC 02/01/22 Range/Units 19:23 WBC 8.6 (4.8-10.8) X10*3/uL Hgb 11.7 L (12.0-16.0) g/dl Hct 35.8 L (37.0-47.0) % Plt Count 224 (160-400) X10*3/uL BMP 02/01/22 19:23 Sodium 141 Potassium 4.7 Chloride 99 Carbon Dioxide 24 BUN 32 H Creatinine 1.76 H Calcium 9.8 D Liver Function 02/01/22 Range/Units 19:23 Total Bilirubin 0.5 (0.0-1.0) mg/dL Direct Bilirubin 0.2 (0.0-0.5) mg/dL AST 39 H (5-31) U/L ALT 20 (0-31) U/L Alkaline Phosphatase 112 (39-117) U/L Albumin 4.4 (3.5-5.0) g/dL Lactic acid is normal. Imaging Abdomen CT scan report/results: report reviewed and image reviewed CT scan - pelvis: report reviewed and image reviewed Assessment and Plan (1) Small bowel obstruction: Status: Acute (2) Dehydration: Status: Acute Plan The pt is dehydrated & not acute per ER provider. Lactic acid is normal, wbc normal & no peritoneal sign per ER. Agree with medical admit, NPO, IVF & overnight hydration. Trend labs NG tube if vomiting occurs Call if the pt's exam changes 02/02/22 0812 Based on the fact the patient is passing gas, I discussed an oral contrast CT or small-bowel follow-through versus a trial of clear liquids. I think it is reasonable to start clears since she reports she is passing gas and I have ordered them. Recheck this morning's labs regarding her dehydration. Her elevated BUN and hypo magnesemia suggest significant dehydration and she may have an ileus that appears to be a bowel obstruction on CT. Will reassess in several hours. Please call me with surgical questions or if her clinical exam worsens. Procedures Date of Service Date of Service: 02/02/22
[2022-02-01 23:14] VITALS: RESP 22
[2022-02-01] MEDS: Morphine Sulfate 4 MG/ML CARTRIDGE IVPUSH (23:14)
--- NOTE | 2022-02-01 23:15 | P.HPHOSP_ITS ---
History of Present Illness Date of Service: 02/01/22 Chief Complaint: Abdominal Pain This is a 81-year-old female with bilateral unspecified mononeuropathy of lower extremity, chronic kidney disease, gout who presents to the emergency department for evaluation of right abdominal pain. Patient states it started 4 days ago when she experienced right abdominal pain followed by diarrhea and episodes of nonbloody emesis. States she ate fish prior to this. Patient has not had a bowel movement since, that is approximately no bowel movement for the last 3 days. She is passing gas and is burping. Also has had episodes of nausea every time she tries to eat something. Her last episode of vomiting was about 2 days ago. Patient states her abdominal pain/cramps are located in the right lower quadrant/epigastric region, nonradiating and has been progressive over the last 3 days. No similar complaints in the past. Denies previous abdominal surgery. Has had vaginal hysterectomy and rectal prolapse surgery. Patient denies fever, chills, chest discomfort, palpitations, shortness of breath, changes in urinary habits In the emergency department CT of the abdomen was concerning for small bowel obstruction. Review of Systems Review of Systems: All 13 review of systems are negative except as noted in [facility] Medical History (Updated 02/01/22 @ 23:42 by Altagracia Gill MD) Anxiety Chronic kidney disease Gout Peripheral neuropathy Functional capacity: uses cane/walker Surgical History (Updated 02/01/22 @ 23:28 by Altagracia Gill MD) H/O vaginal hysterectomy History of right hip replacement Social History Alcohol intake: unknown Advance Directives: Yes Advance Directives Information Provided: No Advance Directives on File: No Meds Allergies Allergy/AdvReac Type Severity Reaction Status Date / Time No Known Allergies Allergy Unverified 01/30/20 16:04 [No Known Allergies*] Active Medications: Current Medications Acetaminophen (Acetaminophen Supp 650 Mg Supp.Rect) 650 mg WA Q6H PRN PRN Reason: Pain, Mild (Pain Scale 1-3) Acetaminophen (Acetaminophen 325 Mg Tablet) 650 mg PO Q6H PRN PRN Reason: Pain, Mild (Pain Scale 1-3) Sodium Chloride (Ns) 1,000 mls @ 150 mls/hr IV .Q6H40M ONE Stop: 02/02/22 05:54 Morphine Sulfate (Morphine Sulfate 4 Mg/Ml Cartridge) 4 mg IVPUSH Q4H PRN; Protocol PRN Reason: Pain, Severe (Pain Scale 7-10) Ondansetron HCl (Ondansetron Hcl 4 Mg/2 Ml Vial) 4 mg IVPUSH Q8H PRN PRN Reason: Nausea and Vomiting Pharmacy Consult (Consult Rx Perform Med Rec) 1 each MISCELLANE ONCE STA Stop: 02/01/22 22:53 Sodium Chloride (0.9 % Sodium Chloride Flush 3 Ml Syringe) 3 ml IVFLUSH QSHIFT CLEMENTINE Physical Exam Vital Signs and Narrative: Vital Signs: Last Vital Signs Temp 98.8 F 02/01/22 20:51 Pulse 82 02/01/22 20:51 Resp 22 H 02/01/22 23:14 BP 168/96 H 02/01/22 20:51 Pulse Ox 94 02/01/22 20:51 O2 Del Method 02/01/22 20:51 BMI result Body Mass Index 27.5 Elderly female lying in ER bed in mild distress Neck supple, no JVD Regular rate and rhythm, S1-S2 heard Regular breath sounds bilaterally, no wheezing or crackles appreciated Abdomen right-sided tenderness with mild palpation, no guarding, no rigidity, no rebound tenderness, hyperactive bowel sounds heard Patient is awake, alert and oriented to self, place, time and person ; no focal motor deficit Psych: Normal mood No pedal edema Results Labs CBC and Chem 7: 02/01/22 19:23 02/01/22 22:42 Labs: Laboratory Results - last 24 hr 02/01/22 02/01/22 02/01/22 19:23 19:23 19:23 MCV 99.4 H MCH 32.5 MCHC 32.7 RDW 15.3 Plt Count 224 MPV 9.4 Immature Gran % (Auto) 0.2 Neut % (Auto) 86.7 H Lymph % (Auto) 6.0 L Gaines % (Auto) 6.8 Eos % (Auto) 0.2 Baso % (Auto) 0.1 Lymph # (Auto) 0.5 L Gaines # (Auto) 0.6 Eos # (Auto) 0.0 Baso # (Auto) 0.0 Abs Immat Gran (auto) 0.02 Absolute Neuts (auto) 7.4 Absolute Nucleated RBC 0.000 Nucleated RBC % (auto) 0.0 Anion Gap 23 H Estim Creat Clear Calc 21.3 Estimated GFR 28 Random Glucose 112 Lactic Acid Calcium 9.8 D Magnesium 1.4 L* Total Bilirubin 0.5 Direct Bilirubin 0.2 AST 39 H ALT 20 Alkaline Phosphatase 112 Total Protein 7.3 Albumin 4.4 COVID-19 (JARRED) Negative COVID-19 Clin Com See Note 02/01/22 19:23 MCV MCH MCHC RDW Plt Count MPV Immature Gran % (Auto) Neut % (Auto) Lymph % (Auto) Gaines % (Auto) Eos % (Auto) Baso % (Auto) Lymph # (Auto) Gaines # (Auto) Eos # (Auto) Baso # (Auto) Abs Immat Gran (auto) Absolute Neuts (auto) Absolute Nucleated RBC Nucleated RBC % (auto) Anion Gap Estim Creat Clear Calc Estimated GFR Random Glucose Lactic Acid 0.7 Calcium Magnesium Total Bilirubin Direct Bilirubin AST ALT Alkaline Phosphatase Total Protein Albumin COVID-19 (JARRED) COVID-19 Clin Com Imaging Radiologist's Impressions: Impressions Abdomen/Pelvis CT 02/01/22 19:52 IMPRESSION: 1. Findings consistent with small bowel obstruction with transition point in the right lower quadrant, which may be due to an adhesion or possibly internal hernia given bowel loops lateralized relative to the right colon and interposed between the liver and ventral abdominal wall. 2. Small volume free fluid/ascites. 3. No pneumatosis, appreciable bowel wall thickening, or evidence of perforation. 4. Elevation right hemidiaphragm. Assessment and Plan (1) Small bowel obstruction: Status: Acute (2) Hypomagnesemia: Status: Acute (3) Chronic kidney disease: Status: Acute (4) Peripheral neuropathy: Status: Acute Plan This is a 81-year-old female with bilateral unspecified mononeuropathy of lower extremity, chronic kidney disease who presents to the emergency department for evaluation of right sided abdominal pain. #. Acute small-bowel obstruction -will admit the patient and manage conservatively with bowel rest, IV fluid resuscitation,IV opioids p.r.n. and IV Zofran p.r.n.. No indication for NG tube currently, patient not actively vomiting. General surgery is on board, appreciate recommendations #. Chronic kidney disease, unspecified stage -baseline creatinine appears to be around 1.6 from review of records. Monitor urine output and creatinine with fluid resuscitation #. Unspecified mononeuropathy of bilateral lower limbs -on pregabalin #. Hypomagnesemia due to GI losses -repleted #. Chronic macrocytic anemia -will check B12 and folate #. Generalized anxiety disorder -?on sertraline. Pharmacy med rec pending #. Gout Code status: Full code DVT prophylaxis: Mechanical. Holding Lovenox for surgical evaluation Diet: NPO Patient will require two night minimum hospital stay for management of small- bowel obstruction Quality Stroke Does the patient have a stroke diagnosis?: No VTE Prior VTE?: No VTE Risk Level:: Medical - moderate - high VTE Device Contraindication: N/A - Device Ordered VTE Drug Contraindication: Treatment Not Indicated
[2022-02-01 23:17] LABS: Anion Gap 18 (12-20); Blood Urea Nitrogen 31 mg/dL (9-16); Calcium 8.9 mg/dL (8.4-10.2); Carbon Dioxide 25 mmol/L (22-29); Chloride 100 mmol/L (96-108); Estimated Glomerular Filt Rate 30; Glucose Random 109 mg/dL (60-115); Potassium 4.1 mmol/L (3.3-5.1); Sodium 139 mmol/L (135-145)
[2022-02-01 23:27] VITALS: BP 145/76; PULSE 81; RESP 18; O2SAT 95
[2022-02-02] VITALS (7 sets, daily range): BP systolic 130–155; BP diastolic 67–94; PULSE 64–90; RESP 12–19; TEMP 36.7–37.1; O2SAT 95–99
[2022-02-02 00:17] LABS: Appearance Urine Cloudy; Color Urine Yellow; Glucose Urine UA Negative (Negative); Leukocyte Esterase Urine Large (3+) (Negative); Nitrite Urine Negative (Negative); PH 5.5 (5.0-9.0); UMIC TRIGGER UACC YES; Urine Blood Negative (Negative); Urine Ketones 15 mg/dL (Negative); Urine Protein 300 (3+) mg/dL (Neg-Trace)
[2022-02-02 00:28] LABS: Bacteria Urine 2+ (None Seen); UACC Culture Trigger YES; WBC Urine 21-50 /HPF (0-5)
[2022-02-02] MEDS: 0.9 % Sodium Chloride 1,000 ML 150 ML IV (01:33)
[2022-02-02] MEDS: 0.9 % Sodium Chloride Flush 3 ML SYRINGE IVFLUSH ×2 (01:33→16:00)
[2022-02-02] MEDS: Morphine Sulfate 4 MG/ML CARTRIDGE IVPUSH ×5 (03:14→23:56)
[2022-02-02] MEDS: ondansetron HCL 4 MG/2 ML VIAL IVPUSH (03:14)
[2022-02-02 05:50] LABS: Folate 12.2 ng/mL (> or = 4.0); Vitamin B12 306 pg/mL (200-900)
[2022-02-02] MEDS: Lidocaine 4 % Patch ADH..PATCH 1 PATCH TRANSDERMA (06:14)
--- NOTE | 2022-02-02 06:16 | PC.NURSE ---
pt a&o, no sob or chest pain. Medicated per jul. Took over care at 5am from MARINO Saucedo.
[2022-02-02 06:49] LABS: MANUAL DIFF FLAG NO
[2022-02-02 06:53] LABS: Basophils Percent Auto 0.2 % (0-2); Eosinophils Percent Auto 0.7 % (0-4); Hematocrit 31.9 % (37.0-47.0); Hemoglobin 10.3 g/dl (12.0-16.0); Imm Gran Abs Auto 0.01 X10*3/uL (0.00-0.03); Imm Gran Pct Auto 0.2 % (0.0-0.4); Lymphocytes Absolute Auto 0.5 X10*3/uL (1.2-4.9); Lymphocytes Percent Auto 7.8 % (20-40); Mean Corpuscular HGB Conc 32.3 g/dl (31.0-35.0); Mean Corpuscular Volume 102.2 fL (80.0-98.0); Monocytes Absolute Auto 0.5 X10*3/uL (0.1-1.2); Monocytes Percent Auto 8.9 % (2-11); Neutrophils Absolute Auto 4.7 x10*3/uL (2.0-8.3); Neutrophils Percent Auto 82.2 % (45-73); Platelet Count 199 X10*3/uL (160-400); Red Blood Count 3.12 X10*6/uL (4.20-5.50); Red Cell Distribution Width 15.2 % (11.0-16.0); White Blood Count 5.8 X10*3/uL (4.8-10.8)
[2022-02-02 07:11] LABS: Anion Gap 17 (12-20); Blood Urea Nitrogen 32 mg/dL (9-16); Calcium 8.4 mg/dL (8.4-10.2); Carbon Dioxide 23 mmol/L (22-29); Chloride 105 mmol/L (96-108); Creatinine Clr Calc Pharmacy 22.6; Estimated Glomerular Filt Rate 30; Glucose Random 99 mg/dL (60-115); Potassium 4.3 mmol/L (3.3-5.1); Sodium 141 mmol/L (135-145)
--- NOTE | 2022-02-02 07:53 | PC.NURSE ---
DR SO IN TO SEE PT
--- NOTE | 2022-02-02 08:21 | PHA.MEDREC ---
Pharmacy Consult ? Medication Reconciliation Pharmacy has completed the medication reconciliation.
[2022-02-02] MEDS: Sertraline HCL 100 MG TABLET PO (08:52)
[2022-02-02] MEDS: Pregabalin 75 MG CAPSULE PO ×2 (08:52→20:58)
[2022-02-02 08:55] LABS: MANUAL DIFF FLAG NO
[2022-02-02 09:05] LABS: Eosinophils Percent Auto 0.5 % (0-4); Hematocrit 33.9 % (37.0-47.0); Hemoglobin 10.6 g/dl (12.0-16.0); Imm Gran Abs Auto 0.01 X10*3/uL (0.00-0.03); Imm Gran Pct Auto 0.2 % (0.0-0.4); Lymphocytes Absolute Auto 0.5 X10*3/uL (1.2-4.9); Lymphocytes Percent Auto 8.5 % (20-40); Mean Corpuscular HGB Conc 31.3 g/dl (31.0-35.0); Mean Corpuscular Hemoglobin 32.2 pg (27.0-33.0); Mean Platelet Volume 9.9 fL (9.4-12.3); Monocytes Absolute Auto 0.5 X10*3/uL (0.1-1.2); Monocytes Percent Auto 7.8 % (2-11); Neutrophils Absolute Auto 4.8 x10*3/uL (2.0-8.3); Platelet Count 214 X10*3/uL (160-400); Red Blood Count 3.29 X10*6/uL (4.20-5.50); Red Cell Distribution Width 15.3 % (11.0-16.0); White Blood Count 5.8 X10*3/uL (4.8-10.8)
[2022-02-02 09:15] LABS: Anion Gap 17 (12-20); Blood Urea Nitrogen 32 mg/dL (9-16); Calcium 8.9 mg/dL (8.4-10.2); Carbon Dioxide 25 mmol/L (22-29); Chloride 104 mmol/L (96-108); Creatinine Clr Calc Pharmacy 21.8; Estimated Glomerular Filt Rate 29; Glucose Random 114 mg/dL (60-115); Magnesium 1.7 mg/dL (1.6-2.6); Potassium 4.2 mmol/L (3.3-5.1); Sodium 142 mmol/L (135-145)
--- NOTE | 2022-02-02 12:27 | MHC.CM.PN ---
met with pt in ed has pp helo for housekeeping orders her groceries on line is covid vax x 2,has own ride home,dc plan home no services
--- NOTE | 2022-02-02 13:03 | P.PNIM_ITS ---
Subjective Subjective Date of Service: 02/02/22 Review of Systems Follow-up small bowel obstruction Not necessitating NG tube Denies any nausea, vomiting, diarrhea sitting up in bed Physical Exam Vital Signs: Vital Signs: Last Vital Signs Temp 98.8 F 02/01/22 20:51 Pulse 79 02/02/22 08:28 Resp 12 02/02/22 07:00 BP 148/73 H 02/02/22 08:28 Pulse Ox 99 02/02/22 08:28 O2 Del Method Nasal Cannula 02/02/22 07:00 O2 Flow Rate 2 02/02/22 07:00 BMI result Body Mass Index 27.5 Appearing in no acute distress lung sounds are clear to auscultation heart regular rate rhythm, clear S1, S2 positive bowel sounds, abdomen is soft, nontender neuro patient is alert x3, no focal deficits Left-sided CVA tenderness Objective Data Active Medications Acetaminophen (Acetaminophen Supp 650 Mg Supp.Rect) 650 mg [place] Q6H PRN PRN Reason: Pain, Mild (Pain Scale 1-3) Acetaminophen (Acetaminophen 325 Mg Tablet) 650 mg PO Q6H PRN PRN Reason: Pain, Mild (Pain Scale 1-3) Ceftriaxone Sodium 1 gm/ (Sodium Chloride) 50 mls @ 100 mls/hr IV Q24H [facility] Lidocaine (Lidocaine 4 % Patch Adh..Patch) 1 patch TRANSDERMA DAILY [facility]; Protocol Last Admin: 02/02/22 06:14 Dose: 1 patch Documented By: MAIKEL Morphine Sulfate (Morphine Sulfate 4 Mg/Ml Cartridge) 4 mg IVPUSH Q4H PRN; Protocol PRN Reason: Pain, Severe (Pain Scale 7-10) Last Admin: 02/02/22 03:14 Dose: 4 mg Documented By: LOLI Ondansetron HCl (Ondansetron Hcl 4 Mg/2 Ml Vial) 4 mg IVPUSH Q8H PRN PRN Reason: Nausea and Vomiting Last Admin: 02/02/22 03:14 Dose: 4 mg Documented By: LOLI Pregabalin (Pregabalin 75 Mg Capsule) 75 mg PO BID [facility] Last Admin: 02/02/22 08:52 Dose: 75 mg Documented By: JOSE Sertraline HCl (Sertraline Hcl 100 Mg Tablet) 100 mg PO DAILY [facility] Last Admin: 02/02/22 08:52 Dose: 100 mg Documented By: JOSE Sodium Chloride (0.9 % Sodium Chloride Flush 3 Ml Syringe) 3 ml IVFLUSH QSHIFT [facility] Last Admin: 02/02/22 08:29 Dose: Not Given Documented By: JOSE Non-Admin Reason: IV Running Labs CBC & Chem 7: 02/02/22 08:45 02/02/22 08:45 Labs: Laboratory Results - last 24 hr 02/01/22 02/01/22 02/01/22 19:23 19:23 19:23 MCV 99.4 H MCH 32.5 MCHC 32.7 RDW 15.3 Plt Count 224 MPV 9.4 Immature Gran % (Auto) 0.2 Neut % (Auto) 86.7 H Lymph % (Auto) 6.0 L [place] % (Auto) 6.8 Eos % (Auto) 0.2 Baso % (Auto) 0.1 Lymph # (Auto) 0.5 L [place] # (Auto) 0.6 Eos # (Auto) 0.0 Baso # (Auto) 0.0 Abs Immat Gran (auto) 0.02 Absolute Neuts (auto) 7.4 Absolute Nucleated RBC 0.000 Nucleated RBC % (auto) 0.0 Anion Gap 23 H Estim Creat Clear Calc 21.3 Estimated GFR 28 Random Glucose 112 Lactic Acid Calcium 9.8 D Magnesium 1.4 L* Total Bilirubin 0.5 Direct Bilirubin 0.2 AST 39 H ALT 20 Alkaline Phosphatase 112 Total Protein 7.3 Albumin 4.4 Vitamin B12 Folate Urine Color Urine Appearance Urine pH Ur Specific [place] Urine Protein Urine Glucose (UA) Urine Ketones Urine Blood Urine Nitrite Ur Leukocyte Esterase Urine RBC Urine WBC Ur Squamous Epith Cells Urine Bacteria Hyaline Casts COVID-19 (JARRED) Negative COVID-19 Clin Com See Note 02/01/22 02/01/22 02/01/22 19:23 22:42 23:53 MCV MCH MCHC RDW Plt Count MPV Immature Gran % (Auto) Neut % (Auto) Lymph % (Auto) [place] % (Auto) Eos % (Auto) Baso % (Auto) Lymph # (Auto) [place] # (Auto) Eos # (Auto) Baso # (Auto) Abs Immat Gran (auto) Absolute Neuts (auto) Absolute Nucleated RBC Nucleated RBC % (auto) Anion Gap 18 Estim Creat Clear Calc 23.0 Estimated GFR 30 Random Glucose 109 Lactic Acid 0.7 Calcium 8.9 D Magnesium 2.0 Total Bilirubin Direct Bilirubin AST ALT Alkaline Phosphatase Total Protein Albumin Vitamin B12 306 Folate 12.2 Urine Color Urine Appearance Urine pH Ur Specific [place] Urine Protein Urine Glucose (UA) Urine Ketones Urine Blood Urine Nitrite Ur Leukocyte Esterase Urine RBC Urine WBC Ur Squamous Epith Cells Urine Bacteria Hyaline Casts COVID-19 (JARRED) COVID-19 Clin Com 02/02/22 02/02/22 02/02/22 00:08 06:09 06:09 MCV 102.2 H MCH 33.0 MCHC 32.3 RDW 15.2 Plt Count 199 MPV 10.0 Immature Gran % (Auto) 0.2 Neut % (Auto) 82.2 H Lymph % (Auto) 7.8 L [place] % (Auto) 8.9 Eos % (Auto) 0.7 Baso % (Auto) 0.2 Lymph # (Auto) 0.5 L [place] # (Auto) 0.5 Eos # (Auto) 0.0 Baso # (Auto) 0.0 Abs Immat Gran (auto) 0.01 Absolute Neuts (auto) 4.7 Absolute Nucleated RBC 0.000 Nucleated RBC % (auto) 0.0 Anion Gap 17 Estim Creat Clear Calc 22.6 Estimated GFR 30 Random Glucose 99 Lactic Acid Calcium 8.4 Magnesium Total Bilirubin Direct Bilirubin AST ALT Alkaline Phosphatase Total Protein Albumin Vitamin B12 Folate Urine Color Yellow Urine Appearance Cloudy Urine pH 5.5 Ur Specific [place] 1.020 Urine Protein 300 (3+) H Urine Glucose (UA) Negative Urine Ketones 15 Urine Blood Negative Urine Nitrite Negative Ur Leukocyte Esterase Large (3+) H Urine RBC 6-10 H Urine WBC 21-50 H Ur Squamous Epith Cells 11-20 Urine Bacteria 2+ Hyaline Casts 3-5 COVID-19 (JARRED) COVID-19 Clin Com 02/02/22 02/02/22 08:45 08:45 MCV 103.0 H MCH 32.2 MCHC 31.3 RDW 15.3 Plt Count 214 MPV 9.9 Immature Gran % (Auto) 0.2 Neut % (Auto) 83.0 H Lymph % (Auto) 8.5 L [place] % (Auto) 7.8 Eos % (Auto) 0.5 Baso % (Auto) 0.0 Lymph # (Auto) 0.5 L [place] # (Auto) 0.5 Eos # (Auto) 0.0 Baso # (Auto) 0.0 Abs Immat Gran (auto) 0.01 Absolute Neuts (auto) 4.8 Absolute Nucleated RBC 0.000 Nucleated RBC % (auto) 0.0 Anion Gap 17 Estim Creat Clear Calc 21.8 Estimated GFR 29 Random Glucose 114 Lactic Acid Calcium 8.9 Magnesium 1.7 Total Bilirubin Direct Bilirubin AST ALT Alkaline Phosphatase Total Protein Albumin Vitamin B12 Folate Urine Color Urine Appearance Urine pH Ur Specific [place] Urine Protein Urine Glucose (UA) Urine Ketones Urine Blood Urine Nitrite Ur Leukocyte Esterase Urine RBC Urine WBC Ur Squamous Epith Cells Urine Bacteria Hyaline Casts COVID-19 (JARRED) COVID-19 Clin Com Assessment and Plan (1) Anxiety: Status: Acute Plan 81-year-old female with bilateral unspecified mononeuropathy of lower extremity, chronic kidney disease who presents to the emergency department for evaluation of right sided abdominal pain. Acute small-bowel obstruction Did not necessitate NG tube, managed conservatively with bowel rest, IV fluids, pain medication and IV antiemetics No nausea or vomiting General surgery aware Will advance diet to full liquids Hold aspirin and statin for now UTI versus pyelonephritis. Pain radiating from left mid abdomen to back, CVA tenderness Rocephin Follow urine culture CKD stage IV Baseline Neuropathy Continue pregabalin Hypomagnesemia Secondary to GI losses Repleted Chronic macrocytic anemia B12 306, folate 12.2 Mental health Continue sertraline Code status: Full code DVT prophylaxis:? Mechanical compression boots Attending Dr. Wasserman Disposition possible discharge back home if eating regular diet, patient declines rehab Continue hospitalization for treatment of small-bowel obstruction Quality Stroke Does the patient have a stroke diagnosis?: No VTE Prior VTE?: No VTE Risk Level:: Medical - moderate - high VTE Device Contraindication: N/A - Device Ordered VTE Drug Contraindication: Treatment Not Indicated
[2022-02-02] MEDS: cefTRIAXone sodium 1 GM in 0.9 % Sodium Chloride 50 ML IV (13:22)
--- NOTE | 2022-02-02 15:50 | PC.NURSE ---
PATIENT WAS ASSISTED UNTO BEDPAN ,VOID SMALL AMOUNT OF URINE .
[2022-02-02] MEDS: Barium Sulfate Oral (Vanilla) 450 ML ORAL.SUSP PO (17:22)
[2022-02-02] MEDS: Lactated Ringers 1,000 ML 125 ML IVCONT (18:42)
--- NOTE | 2022-02-02 19:20 | PC.NURSE ---
assumed care of pt at 1900, pt sitting upright in bed, reporting slight reduction in pain (5/10), LR running at 125ml/hr, pt NPO.
--- NOTE | 2022-02-02 19:45 | PC.NURSE ---
pt repositioned into hospital bed.
[2022-02-02] MEDS: Acetaminophen 325 MG TABLET 650 MG PO (22:34)
--- NOTE | 2022-02-02 23:13 | PC.NURSE ---
Patient transferred to overflow bed 3. Patient is alert, oriented, vss. Patient offers no complaints at this time. Patient assisted on bedpan.
[2022-02-03] VITALS (9 sets, daily range): BP systolic 83–180; BP diastolic 52–99; PULSE 81–102; RESP 16–19; TEMP 35–37.7; O2SAT 92–99
[2022-02-03] MEDS: Lactated Ringers 1,000 ML 125 ML IVCONT (02:22)
--- NOTE | 2022-02-03 02:26 | PC.NURSE ---
Patient was sleeping oxygen dropped to low 70's applied 5l via nasal cannula while sleeping. came back up to 93%
[2022-02-03 07:08] LABS: Hematocrit 32.7 % (37.0-47.0); Hemoglobin 10.1 g/dl (12.0-16.0); Mean Corpuscular HGB Conc 30.9 g/dl (31.0-35.0); Mean Corpuscular Volume 103.5 fL (80.0-98.0); Mean Platelet Volume 10.2 fL (9.4-12.3); Platelet Count 206 X10*3/uL (160-400); Red Blood Count 3.16 X10*6/uL (4.20-5.50); Red Cell Distribution Width 14.7 % (11.0-16.0); White Blood Count 2.9 X10*3/uL (4.8-10.8)
--- NOTE | 2022-02-03 07:23 | PM.PNGS ---
Subjective Subjective Date of Service: 02/03/22 Patient reports: still having pain, no flatus and no bowel movement Interval history: The patient is seen with her daughter at the bedside at roughly 0 700. Last night, the daughter and I had a long phone call regarding the lack of IV fluid & erroneous ordering of an additional CT scan without oral contrast. The patient and her daughter seem satisfied that we are addressing these concerns to make a better for the next patient. The patient is uncomfortable in notes that her spinal stenosis is causing ongoing left flank pain and she also reports abdominal cramping and no flatus or bowel movement since consuming the oral contrast for the CT scan yesterday afternoon. She denies any chest pain or difficulty breathing. The patient and her daughter confirm that she is wheelchair bound at home but functions independently. The patient is not having severe abdominal pain, but rather left flank pain related to her spinal stenosis. Physical Exam Vital Signs: Vital Signs: Last Vital Signs Temp 97.5 F 02/03/22 02:08 Pulse 102 H 02/03/22 05:39 Resp 17 02/03/22 02:08 BP 180/99 H 02/03/22 05:39 Pulse Ox 95 02/03/22 05:39 O2 Del Method 02/03/22 05:39 O2 Flow Rate 5 02/03/22 02:08 BMI result Body Mass Index 27.5 The patient appears uncomfortable but nontoxic & she reports that this is due to her spinal stenosis. The patient's abdominal exam is unchanged. She has no peritoneal irritation to percussion but her abdomen is perhaps a little more distended than yesterday with tympany. Objective Data Active Medications Acetaminophen (Acetaminophen Supp 650 Mg Supp.Rect) 650 mg [place] Q6H PRN PRN Reason: Pain, Mild (Pain Scale 1-3) Acetaminophen (Acetaminophen 325 Mg Tablet) 650 mg PO Q6H PRN PRN Reason: Pain, Mild (Pain Scale 1-3) Last Admin: 02/02/22 22:34 Dose: 650 mg Documented By: GAY Ceftriaxone Sodium 1 gm/ (Sodium Chloride) 50 mls @ 100 mls/hr IV Q24H [facility] Last Infusion: 02/02/22 19:14 Dose: 0 mls/hr Documented By: MADDENL Lactated Ringer's (Lr) 1,000 mls @ 125 mls/hr IVCONT .Q8H [facility] Last Admin: 02/03/22 02:22 Dose: 125 mls/hr Documented By: EMBER Lidocaine (Lidocaine 4 % Patch Adh..Patch) 1 patch TRANSDERMA DAILY [facility]; Protocol Last Admin: 02/02/22 17:43 Dose: Not Given Documented By: LETICIA Non-Admin Reason: Duplicate Order Morphine Sulfate (Morphine Sulfate 4 Mg/Ml Cartridge) 4 mg IVPUSH Q4H PRN; Protocol PRN Reason: Pain, Severe (Pain Scale 7-10) Last Admin: 02/02/22 23:56 Dose: 4 mg Documented By: EMBER Ondansetron HCl (Ondansetron Hcl 4 Mg/2 Ml Vial) 4 mg IVPUSH Q8H PRN PRN Reason: Nausea and Vomiting Last Admin: 02/02/22 03:14 Dose: 4 mg Documented By: LOLI Pregabalin (Pregabalin 75 Mg Capsule) 75 mg PO BID [facility] Last Admin: 02/02/22 20:58 Dose: 75 mg Documented By: LETICIA Sertraline HCl (Sertraline Hcl 100 Mg Tablet) 100 mg PO DAILY [facility] Last Admin: 02/02/22 08:52 Dose: 100 mg Documented By: JOSE Sodium Chloride (0.9 % Sodium Chloride Flush 3 Ml Syringe) 3 ml IVFLUSH QSHIFT [facility] Last Admin: 02/03/22 00:00 Dose: Not Given Documented By: EMBER Non-Admin Reason: Previously Administered Labs CBC & Chem 7: 02/03/22 06:25 02/03/22 06:25 Labs: Laboratory Results - last 24 hr 02/02/22 02/02/22 02/03/22 08:45 08:45 06:25 MCV 103.0 H 103.5 H MCH 32.2 32.0 MCHC 31.3 30.9 L RDW 15.3 14.7 Plt Count 214 206 MPV 9.9 10.2 Immature Gran % (Auto) 0.2 Neut % (Auto) 83.0 H Lymph % (Auto) 8.5 L [place] % (Auto) 7.8 Eos % (Auto) 0.5 Baso % (Auto) 0.0 Lymph # (Auto) 0.5 L [place] # (Auto) 0.5 Eos # (Auto) 0.0 Baso # (Auto) 0.0 Abs Immat Gran (auto) 0.01 Absolute Neuts (auto) 4.8 Absolute Nucleated RBC 0.000 0.000 Nucleated RBC % (auto) 0.0 0.0 Anion Gap 17 Estim Creat Clear Calc 21.8 Estimated GFR 29 Random Glucose 114 Calcium 8.9 Magnesium 1.7 Microbiology Microbiology Results: Microbiology 02/01/22 21:06 Blood Culture - Preliminary Blood - Venous No growth after 24 hours. 02/01/22 19:26 Blood Culture - Preliminary Blood - Venous No growth after 24 hours. Procedures Date of Service Date of Service: 02/03/22 Progress Note: A&P Assessment and plan (1) Small bowel obstruction: Status: Acute (2) Dehydration: Status: Acute (3) Chronic kidney disease: Status: Acute (4) Peripheral neuropathy: Status: Acute (5) H/O vaginal hysterectomy: Status: Acute Plan Explained to the patient and her daughter that in my experience, partial small-bowel obstructions that will resolve on their own and oral CT contrast typically results in flatus and bowel movements within 12 hours. However, the patient is not experiencing any additional flatus nor is she passing the oral contrast. Given this, I have recommended a laparoscopy and possible lysis of adhesions or possible small-bowel resection. I also explained the inherent risks of need for an open operation, possible bowel resection and the risks of bleeding, infection, need for another procedure in the event of an an unexpected complication, and the possibility of related to recognized or unrecognized comorbidities. The patient and her daughter wanted to discuss the matter with the family. The patient's daughter is in school with Dr. Story's children so I offered a 2nd opinion from 1 of the other surgeons if that would help with her decision. The other option of medical management including a nasogastric tube and monitoring the patient for several days for resolution was also discussed. However this may still result in need for operative intervention. Given the options, they are leaning towards an operation today but we will discuss later this morning. Risks, benefits, alternatives and options were reviewed with the patient and her daughter. The patient seemed understand and wants to proceed with surgery. NPO except for ice chips. Will follow this morning. Okay to transfer patient to my service. Time Spent With Patient Time: Total time spent is greater than 50% in coordination of care (as documented) at patient's floor/unit and/or counseling patient: Quality Stroke Does the patient have a stroke diagnosis?: No VTE Prior VTE?: No VTE Risk Level:: Medical - moderate - high VTE Device Contraindication: N/A - Device Ordered VTE Drug Contraindication: Treatment Not Indicated
[2022-02-03 07:38] LABS: Anion Gap 22 (12-20); Blood Urea Nitrogen 39 mg/dL (9-16); Carbon Dioxide 21 mmol/L (22-29); Chloride 102 mmol/L (96-108); Creatinine Clr Calc Pharmacy 19.9; Estimated Glomerular Filt Rate 26; Glucose Random 105 mg/dL (60-115); Potassium 4.7 mmol/L (3.3-5.1); Sodium 140 mmol/L (135-145)
[2022-02-03] MEDS: ondansetron HCL 4 MG/2 ML VIAL IVPUSH (07:45)
[2022-02-03] MEDS: Lidocaine 4 % Patch ADH..PATCH 1 PATCH TRANSDERMA (07:46)
[2022-02-03] MEDS: 0.9 % Sodium Chloride Flush 3 ML SYRINGE IVFLUSH ×3 (07:46→23:01)
[2022-02-03] MEDS: Morphine Sulfate 4 MG/ML CARTRIDGE IVPUSH (07:46)
[2022-02-03] MEDS: Acetaminophen 325 MG TABLET 650 MG PO (07:46)
[2022-02-03] MEDS: Sertraline HCL 100 MG TABLET PO (07:47)
--- NOTE | 2022-02-03 09:44 | PC.NURSE ---
Patient left for to PACU for procedure via bed and rigger helper at this time.
--- NOTE | 2022-02-03 11:57 | P.CONAN_ITS ---
HPI - Anesthesia Eval Consult details Narrative: 81 year-old female presenting for exploratory laparoscopy. In the preoperative area, patient is noted to have an oxygen requirement. She denies oxygen requirement at home. On room air she is currently satting about 83-84%. On 3 L, she is up to 95%. CTs notable for possible consolidation at the lung bases. She denies any shortness of breath or history of dyspnea. Already on ceftriaxone for possible UTI. Had episodes of nausea and vomiting related to her abdominal pain. Denies any history of choking or aspiration with vomiting. No NG tube is present. [facility] Active Problems Active Problems: All Active Problems (Updated 02/01/22 @ 23:42 by Altagracai Gill MD) Gout (Acute) Anxiety (Acute) Hypomagnesemia (Acute) H/O vaginal hysterectomy (Acute) Peripheral neuropathy (Acute) Chronic kidney disease (Acute) Dehydration (Acute) Small bowel obstruction (Acute) Past Medical History Medical History Anxiety Chronic kidney disease Gout Peripheral neuropathy Functional capacity: uses cane/walker Family History Family history of problems with anesthesia: No Surgical History Surgical History H/O vaginal hysterectomy History of right hip replacement History of Problems with Anesthesia: Yes (States that she has a narrow airway per prior risk management professional) Social History Social History Alcohol intake: unknown Patient Tobacco Use Status: Never used Tobacco Are you DNR?: No Advance Directives: Yes Advance Directives on File: Yes Advance Directives Date on File: 02/03/22 service: No Meds Allergies Allergy/AdvReac Type Severity Reaction Status Date / Time No Known Allergies Allergy Unverified 01/30/20 16:04 [No Known Allergies*] Active Medications: Current Medications Acetaminophen (Acetaminophen Supp 650 Mg Supp.Rect) 650 mg [place] Q6H PRN PRN Reason: Pain, Mild (Pain Scale 1-3) Acetaminophen (Acetaminophen 325 Mg Tablet) 650 mg PO Q6H PRN PRN Reason: Pain, Mild (Pain Scale 1-3) Last Admin: 02/03/22 07:46 Dose: 650 mg Ceftriaxone Sodium 1 gm/ (Sodium Chloride) 50 mls @ 100 mls/hr IV Q24H [facility] Last Infusion: 02/02/22 19:14 Dose: Infused Lactated Ringer's (Lr) 1,000 mls @ 125 mls/hr IVCONT .Q8H [facility] Last Infusion: 02/03/22 10:44 Dose: Infused Lidocaine (Lidocaine 4 % Patch Adh..Patch) 1 patch TRANSDERMA DAILY [facility]; Protocol Last Admin: 02/03/22 07:46 Dose: 1 patch Morphine Sulfate (Morphine Sulfate 4 Mg/Ml Cartridge) 4 mg IVPUSH Q4H PRN; Protocol PRN Reason: Pain, Severe (Pain Scale 7-10) Last Admin: 02/03/22 07:46 Dose: 4 mg Ondansetron HCl (Ondansetron Hcl 4 Mg/2 Ml Vial) 4 mg IVPUSH Q8H PRN PRN Reason: Nausea and Vomiting Last Admin: 02/03/22 07:45 Dose: 4 mg Pregabalin (Pregabalin 75 Mg Capsule) 75 mg PO BID [facility] Last Admin: 02/03/22 10:43 Dose: Not Given Sertraline HCl (Sertraline Hcl 100 Mg Tablet) 100 mg PO DAILY [facility] Last Admin: 02/03/22 07:47 Dose: 100 mg Sodium Chloride (0.9 % Sodium Chloride Flush 3 Ml Syringe) 3 ml IVFLUSH QSHIFT [facility] Last Admin: 02/03/22 07:46 Dose: 3 ml Home Medications Medication Instructions Recorded Confirmed Last Taken Type allopurinol 100 mg tablet 1 tab PO DAILY 02/02/22 02/02/22 Unknown History atorvastatin 20 mg tablet 1 tab PO DAILY 02/02/22 02/02/22 Unknown History pregabalin 75 mg capsule 1 cap PO BID 02/02/22 02/02/22 Unknown History sertraline 100 mg tablet 1 tab PO DAILY 02/02/22 02/02/22 Unknown History Exam Exam Date and Time: February 03, 2022 1157 Height,Weight and Vital Signs: Height 5 ft Weight 140 lb 14.006 oz Last Vital Signs Temp 98.9 F 02/03/22 10:45 Pulse 87 02/03/22 10:45 Resp 19 02/03/22 10:45 BP 149/82 H 02/03/22 10:45 Pulse Ox 97 02/03/22 10:45 O2 Del Method Nasal Cannula 02/03/22 10:45 O2 Flow Rate 3.5 02/03/22 10:45 Pertinent Lab Results Pertinent Lab Results: Laboratory Tests 02/01/22 02/01/22 02/01/22 19:23 19:23 19:23 WBC 8.6 RBC 3.60 L Hgb 11.7 L Hct 35.8 L MCV 99.4 H MCH 32.5 MCHC 32.7 RDW 15.3 Plt Count 224 MPV 9.4 Immature Gran % (Auto) 0.2 Neut % (Auto) 86.7 H Lymph % (Auto) 6.0 L [place] % (Auto) 6.8 Eos % (Auto) 0.2 Baso % (Auto) 0.1 Lymph # (Auto) 0.5 L [place] # (Auto) 0.6 Eos # (Auto) 0.0 Baso # (Auto) 0.0 Abs Immat Gran (auto) 0.02 Absolute Neuts (auto) 7.4 Absolute Nucleated RBC 0.000 Nucleated RBC % (auto) 0.0 Sodium 141 Potassium 4.7 Chloride 99 Carbon Dioxide 24 Anion Gap 23 H BUN 32 H Creatinine 1.76 H Estim Creat Clear Calc 21.3 Estimated GFR 28 Random Glucose 112 Lactic Acid Calcium 9.8 D Magnesium 1.4 L* Total Bilirubin 0.5 Direct Bilirubin 0.2 AST 39 H ALT 20 Alkaline Phosphatase 112 Total Protein 7.3 Albumin 4.4 Vitamin B12 Folate Urine Color Urine Appearance Urine pH Ur Specific [place] Urine Protein Urine Glucose (UA) Urine Ketones Urine Blood Urine Nitrite Ur Leukocyte Esterase Urine RBC Urine WBC Ur Squamous Epith Cells Urine Bacteria Hyaline Casts COVID-19 (JARRED) Negative COVID-19 Clin Com See Note Blood Type Antibody Screen 02/01/22 02/01/22 02/01/22 19:23 22:42 23:53 WBC RBC Hgb Hct MCV MCH MCHC RDW Plt Count MPV Immature Gran % (Auto) Neut % (Auto) Lymph % (Auto) [place] % (Auto) Eos % (Auto) Baso % (Auto) Lymph # (Auto) [place] # (Auto) Eos # (Auto) Baso # (Auto) Abs Immat Gran (auto) Absolute Neuts (auto) Absolute Nucleated RBC Nucleated RBC % (auto) Sodium 139 Potassium 4.1 Chloride 100 Carbon Dioxide 25 Anion Gap 18 BUN 31 H Creatinine 1.63 H Estim Creat Clear Calc 23.0 Estimated GFR 30 Random Glucose 109 Lactic Acid 0.7 Calcium 8.9 D Magnesium 2.0 Total Bilirubin Direct Bilirubin AST ALT Alkaline Phosphatase Total Protein Albumin Vitamin B12 306 Folate 12.2 Urine Color Urine Appearance Urine pH Ur Specific [place] Urine Protein Urine Glucose (UA) Urine Ketones Urine Blood Urine Nitrite Ur Leukocyte Esterase Urine RBC Urine WBC Ur Squamous Epith Cells Urine Bacteria Hyaline Casts COVID-19 (JARRED) COVID-19 Clin Com Blood Type Antibody Screen 02/02/22 02/02/22 02/02/22 00:08 06:09 06:09 WBC 5.8 RBC 3.12 L Hgb 10.3 L Hct 31.9 L MCV 102.2 H MCH 33.0 MCHC 32.3 RDW 15.2 Plt Count 199 MPV 10.0 Immature Gran % (Auto) 0.2 Neut % (Auto) 82.2 H Lymph % (Auto) 7.8 L [place] % (Auto) 8.9 Eos % (Auto) 0.7 Baso % (Auto) 0.2 Lymph # (Auto) 0.5 L [place] # (Auto) 0.5 Eos # (Auto) 0.0 Baso # (Auto) 0.0 Abs Immat Gran (auto) 0.01 Absolute Neuts (auto) 4.7 Absolute Nucleated RBC 0.000 Nucleated RBC % (auto) 0.0 Sodium 141 Potassium 4.3 Chloride 105 Carbon Dioxide 23 Anion Gap 17 BUN 32 H Creatinine 1.65 H Estim Creat Clear Calc 22.6 Estimated GFR 30 Random Glucose 99 Lactic Acid Calcium 8.4 Magnesium Total Bilirubin Direct Bilirubin AST ALT Alkaline Phosphatase Total Protein Albumin Vitamin B12 Folate Urine Color Yellow Urine Appearance Cloudy Urine pH 5.5 Ur Specific [place] 1.020 Urine Protein 300 (3+) H Urine Glucose (UA) Negative Urine Ketones 15 Urine Blood Negative Urine Nitrite Negative Ur Leukocyte Esterase Large (3+) H Urine RBC 6-10 H Urine WBC 21-50 H Ur Squamous Epith Cells 11-20 Urine Bacteria 2+ Hyaline Casts 3-5 COVID-19 (JARRED) COVID-19 Clin Com Blood Type Antibody Screen 02/02/22 02/02/22 02/03/22 08:45 08:45 06:25 WBC 5.8 2.9 L RBC 3.29 L 3.16 L Hgb 10.6 L 10.1 L Hct 33.9 L 32.7 L MCV 103.0 H 103.5 H MCH 32.2 32.0 MCHC 31.3 30.9 L RDW 15.3 14.7 Plt Count 214 206 MPV 9.9 10.2 Immature Gran % (Auto) 0.2 Neut % (Auto) 83.0 H Lymph % (Auto) 8.5 L [place] % (Auto) 7.8 Eos % (Auto) 0.5 Baso % (Auto) 0.0 Lymph # (Auto) 0.5 L [place] # (Auto) 0.5 Eos # (Auto) 0.0 Baso # (Auto) 0.0 Abs Immat Gran (auto) 0.01 Absolute Neuts (auto) 4.8 Absolute Nucleated RBC 0.000 0.000 Nucleated RBC % (auto) 0.0 0.0 Sodium 142 Potassium 4.2 Chloride 104 Carbon Dioxide 25 Anion Gap 17 BUN 32 H Creatinine 1.72 H Estim Creat Clear Calc 21.8 Estimated GFR 29 Random Glucose 114 Lactic Acid Calcium 8.9 Magnesium 1.7 Total Bilirubin Direct Bilirubin AST ALT Alkaline Phosphatase Total Protein Albumin Vitamin B12 Folate Urine Color Urine Appearance Urine pH Ur Specific [place] Urine Protein Urine Glucose (UA) Urine Ketones Urine Blood Urine Nitrite Ur Leukocyte Esterase Urine RBC Urine WBC Ur Squamous Epith Cells Urine Bacteria Hyaline Casts COVID-19 (JARRED) COVID-19 Clin Com Blood Type Antibody Screen 02/03/22 02/03/22 06:25 09:36 WBC RBC Hgb Hct MCV MCH MCHC RDW Plt Count MPV Immature Gran % (Auto) Neut % (Auto) Lymph % (Auto) [place] % (Auto) Eos % (Auto) Baso % (Auto) Lymph # (Auto) [place] # (Auto) Eos # (Auto) Baso # (Auto) Abs Immat Gran (auto) Absolute Neuts (auto) Absolute Nucleated RBC Nucleated RBC % (auto) Sodium 140 Potassium 4.7 Chloride 102 Carbon Dioxide 21 L Anion Gap 22 H BUN 39 H Creatinine 1.88 H Estim Creat Clear Calc 19.9 Estimated GFR 26 Random Glucose 105 Lactic Acid Calcium 9.0 Magnesium Total Bilirubin Direct Bilirubin AST ALT Alkaline Phosphatase Total Protein Albumin Vitamin B12 Folate Urine Color Urine Appearance Urine pH Ur Specific [place] Urine Protein Urine Glucose (UA) Urine Ketones Urine Blood Urine Nitrite Ur Leukocyte Esterase Urine RBC Urine WBC Ur Squamous Epith Cells Urine Bacteria Hyaline Casts COVID-19 (JARRED) COVID-19 Clin Com Blood Type A Positive Antibody Screen NEGATIVE Airway Mallampati Class: IV TM Dist: <=3cm Neck ROM: Limited Denture: Upper and Lower Loose/Missing/Broken Teeth: Yes Assessment and Plan Assessment Anesthesia Assessment: Anesthesia Plan Discussed and Chart Reviewed Final Anesthetic Review Family History of Problems with Anesthesia: No History of Problems with Anesthesia: Yes (States that she has a narrow airway per prior risk management professional) NPO: Yes ASA Class: III Final Preanesthetic Review: No Changes in Pt Med Stat, Meds/Allgs Chart Reviewed, Consent Obtained/Reviewed and Anes Risks/Benef Reviewed Patient Risk: High Procedure Risk: Intermediate Anesthetic Plan Anesthetic Plan: GA Disposition: Standard PACU
--- NOTE | 2022-02-03 15:23 | HO.PM.IMPN ---
Subjective Subjective Date of Service: 02/03/22 Interval History: seen and examined this morning follow up for bowel obstruction not passing flatus or having bowel movement no significant abdominal pain, nausea or vomiting Review of Systems Review of Systems: Yes all other systems are reviewed and are negative Constitutional Constitutional: Denies chills and Denies fever(s) Cardiovascular Cardiovascular: Denies chest pain, Denies palpitations and Denies dyspnea Respiratory Respiratory: Denies cough and Denies dyspnea Gastrointestinal Gastrointestinal: Denies abdominal pain, Reports constipation, Denies nausea and Denies vomiting Endocrine Endocrine: Denies palpitations Physical Exam Vital Signs: Vital Signs: Last Vital Signs Temp 98.9 F 02/03/22 10:45 Pulse 87 02/03/22 10:45 Resp 19 02/03/22 10:45 BP 149/82 H 02/03/22 10:45 Pulse Ox 97 02/03/22 10:45 O2 Del Method Nasal Cannula 02/03/22 10:45 O2 Flow Rate 3.5 02/03/22 10:45 BMI result Body Mass Index 27.5 Const: General: cooperative, alert and awake Nutritional Appearance: average body habitus Orientation/consciousness: patient oriented x3 Resp: Effort & Inspection: normal respiratory effort and able to speak in complete sentences Auscultation: diminished lung sounds Cardio: Rate: regular rate Heart sounds: S1 normal heart sound present and S2 normal heart sound present GI: Inspection: No distended Palpation (GI): Soft to palpation Neuro: General: patient oriented x3 Cranial nerves: Yes CN's II-XII intact bilaterally Extrem: General: Yes no pedal edema Objective Data Active Medications Acetaminophen (Acetaminophen Supp 650 Mg Supp.Rect) 650 mg [place] Q6H PRN PRN Reason: Pain, Mild (Pain Scale 1-3) Acetaminophen (Acetaminophen 325 Mg Tablet) 650 mg PO Q6H PRN PRN Reason: Pain, Mild (Pain Scale 1-3) Last Admin: 02/03/22 07:46 Dose: 650 mg Documented By: RILEY-RIVLA Ceftriaxone Sodium 1 gm/ (Sodium Chloride) 50 mls @ 100 mls/hr IV Q24H [facility] [place] Last Infusion: 02/02/22 19:14 Dose: 0 mls/hr Documented By: RAEDENL Lactated Ringer's (Lr) 1,000 mls @ 125 mls/hr IVCONT .Q8H [facility] [place] Last Admin: 02/03/22 10:44 Dose: Not Given Documented By: NEENA Non-Admin Reason: pt off unit to surgery Lidocaine (Lidocaine 4 % Patch Adh..Patch) 1 patch TRANSDERMA DAILY [facility] [place]; Protocol Last Admin: 02/03/22 07:46 Dose: 1 patch Documented By: NEENA Morphine Sulfate (Morphine Sulfate 4 Mg/Ml Cartridge) 4 mg IVPUSH Q4H PRN; Protocol PRN Reason: Pain, Severe (Pain Scale 7-10) Last Admin: 02/03/22 07:46 Dose: 4 mg Documented By: NEENA Ondansetron HCl (Ondansetron Hcl 4 Mg/2 Ml Vial) 4 mg IVPUSH Q8H PRN PRN Reason: Nausea and Vomiting Last Admin: 02/03/22 07:45 Dose: 4 mg Documented By: NEENA Pregabalin (Pregabalin 75 Mg Capsule) 75 mg PO BID [facility] [place] Last Admin: 02/03/22 10:43 Dose: Not Given Documented By: NEENA Non-Admin Reason: pharmacy called and did not bring up in time Sertraline HCl (Sertraline Hcl 100 Mg Tablet) 100 mg PO DAILY [facility] [place] Last Admin: 02/03/22 07:47 Dose: 100 mg Documented By: NEENA Sodium Chloride (0.9 % Sodium Chloride Flush 3 Ml Syringe) 3 ml IVFLUSH QSHIFT [facility] [place] Last Admin: 02/03/22 07:46 Dose: 3 ml Documented By: NEENA Labs CBC & Chem 7: 02/03/22 06:25 02/03/22 06:25 Labs: Laboratory Results - last 24 hr 02/03/22 02/03/22 02/03/22 06:25 06:25 09:36 MCV 103.5 H MCH 32.0 MCHC 30.9 L RDW 14.7 Plt Count 206 MPV 10.2 Absolute Nucleated RBC 0.000 Nucleated RBC % (auto) 0.0 Anion Gap 22 H Estim Creat Clear Calc 19.9 Estimated GFR 26 Random Glucose 105 Calcium 9.0 Blood Type A Positive Antibody Screen NEGATIVE Microbiology Microbiology Results: Microbiology 02/02/22 00:00 Urine Culture - Final Urine Catheterized - Straight Catheter 02/01/22 21:06 Blood Culture - Preliminary Blood - Venous No growth after 24 hours. 02/01/22 19:26 Blood Culture - Preliminary Blood - Venous No growth after 24 hours. Assessment and Plan (1) Small bowel obstruction: Status: Acute Plan 81-year-old female with bilateral unspecified mononeuropathy of lower extremity, chronic kidney disease who presents to the emergency department for evaluation of right sided abdominal pain. Acute small-bowel obstruction not passing gas, no BM seen by general surgery - plan to take to OR today Hold aspirin UTI Pain radiating from left mid abdomen to back - has chronic back pain/spinal stenosis urine cultures growing mixed bacterial yeison characteristic of urogenital contamination will continue Rocephin CKD stage IV Baseline Neuropathy Continue pregabalin Hypomagnesemia Secondary to GI losses Repleted Chronic macrocytic anemia B12 306, folate 12.2 H/H stable Mood Continue sertraline Code status: Full code DVT prophylaxis:? Mechanical compression boots Attending Dr. Wasserman Continue hospitalization for treatment of small-bowel obstruction Quality Stroke Does the patient have a stroke diagnosis?: No VTE Prior VTE?: No VTE Risk Level:: Medical - moderate - high VTE Device Contraindication: N/A - Device Ordered VTE Drug Contraindication: Treatment Not Indicated
--- NOTE | 2022-02-03 17:06 | PM.OP ---
Brief Operative Note Date of Service: 02/03/22 Pre-op diagnosis: SBO Post-op diagnosis: other (Same due to adhesive band in ileum, Hiatal hernia) Procedure: Daignostic laparoscopy, laparotomy, lysis of adhesions, upper endoscopy, NG tube placement by physician Surgeon: Alonzo Weiss MD, FACS Anesthesia: GETA Was an Ambulatory Care Coordinator used for this Procedure?: Yes Ambulatory Care Coordinator: Subhash Deras Estimated blood loss (mL): 20 Pathology: none sent Condition: critical Disposition: ICU
--- NOTE | 2022-02-03 17:18 | W.PM.OPN ---
Operative Note Operative Note Date of Service: 02/03/22 Narrative: Preop diagnosis: [SBO] Postop diagnosis: SBO due to adhesive band of terminal ileum, Hiatal hernia requiring physician-placed NG tube Procedure: [Diagnsotic laparoscopy converted to laparotomy, upper endoscopy & physician-placed NG tube] Surgeon: Alonzo Weiss MD Assist: [Subhash Deras MD; Sabrina Andrew PA-C] Anesthesia: [GET] Estimated blood loss: [30cc] Specimen: [none] Intraoperative findings: [1) distended small bowel & abdominal loss of domain secondary to kyphoscoliosis 2) adhesive band, terminal ileum with clear transition point 3) hiatal hernia ] Indications: The patient is an 81-year-old woman with longstanding kyphoscoliosis, spinal stenosis and a recent diagnosis of small-bowel obstruction. Options including medical management versus operative intervention were reviewed with the patient and her daughter Sathish. Given the apparent development of complete small bowel obstruction is evidence by not passing any of the oral contrast she took yesterday, I recommend I laparoscopic lysis of adhesions, possible small-bowel resection and possible laparotomy. I reviewed the inherent risks of bleeding, infection, need for open surgery, possible need for a bowel resection, the possibility of prolonged ileus as well as the risk that a recognized or unrecognized comorbidity could complicate the procedure causing cardiopulmonary multiorgan failure and . The option of a 2nd opinion was also offered but declined. Patient and her daughter seemed understand their options and wanted to proceed as recommended. Procedure: [The patient was identified in the preoperative holding area and again in the operating room due to her spinal stenosis and kyphosscoliosis, the bed was padded to accommodate her anatomy and she was placed in supine position. See anesthesia notes regarding awake intubation. Sequential compression stockings were in place and a Yadav catheter placed by the OR team. Her abdomen was then widely prepped and draped in the usual manner for surgery. Patient is been on antibiotics due to presumed pneumonia during her vomiting episode. Using preemptive local, I began in the left upper quadrant, made a small incision and placed a Veress needle without incident but opening pressures remained high at 15. The patient's abdomen was firm and would not distend from the carbon dioxide so the Veress needle was repositioned again with an appropriate drop test but opening pressures remained high. At this point, I elected to do an Opti View trocar insertion over 5 mm 30 degree scope and upon entering the abdomen encountered a very tight abdominal space even at 15 mmHg. There was no evidence of injury from the Veress needle or the trocar but there was no working space given the adhesions from the infraumbilical abdomen down and the patient's loss of domain secondary to her back issues. Given this, I elected to perform an open exploration. The abdomen was opened with a median celiotomy incision that was carried into the abdomen carefully to avoid the bowel. Adhesions were carefully lysed using electrocautery and sharp dissection. The small bowel was dilated at approximately 4 cm and delivered into the field and run down to the terminal ileum where an adhesive band measuring approximately 4 mm in diameter was identified and lysed with electrocautery. This was the clear transition point approximately 2 10-12 cm from the ileocecal valve. Additional interloop adhesions were encountered and these were lysed sharply under direct vision taking care to avoid serosal injury. Once this was done, I attempted to palpate the nasogastric tube that had been previously placed in could not appreciated in the stomach. The stomach & small bowel were grossly distended and, at my request, anesthesia attempted multiple times to place the NG but it kept coiling and would not position decompress the stomach and the distended small bowel. The small bowel was so grossly distended that it would not return to the peritoneal cavity and fascial closure could not be performed. Given the concern of unrecognized pathology that was affecting placement of the nasogastric tube, I called Dr. Deras for assistance and once he arrived at the bedside, broke scrub to perform an on-table upper endoscopy to assess for unrecognized esophogeal or gastric pathology that was preventing advancement of the nasogastric tube needed to decompress the stomach and small bowel & close the abdomen. The Olympus 160 endoscope was carefully advanced into the esophagus and bilious material encountered in the esophagus. The nasogastric tube was visualized in the esophagus of but stopped at the GE junction. There is a significant amount of lower esophageal reflux mucosal damage but no evidence of malignancy nor mass. The scope was then advanced into the antrum of the stomach and decompressed using the endoscope in the bilious contents aspirated. We then tried advancing the nasogastric tube but was not able to advanced for unclear reasons. Due to bile & gastric distention, the GE Jxn & hiatal hernia could not be accurately measured, but an hiatal hernia was definitely palpable at the GE Jxn by hand. Two nasogastric tube placement attempts were made by me, but the NG stopped at the hiatus & would not decompress the stomach. Ultimately, I placed a cold biopsy forceps through a 16 Dominican nasogastric tube approximately 5 cm from the tip of the NG for added rigisdity and then carefully advanced the tube with the help of Dr. Deras intraoperatively. He directed the nasogastric tube from the GE junction and hiatal hernia into the body while I advanced the nasogastric tube with intraluminal wire for rigidity. It fed easily and the wire was removed and the nasogastric tube secured. At this point, I regowned to return to the operative field and we ran the bowel from terminal ileum to ligament of Treitz removing the succus entericus via the nasogastric tube. Once this was done, the small bowel was adequately decompressed that fascial closure was performed after ensuring no sponges or instruments were in the abdomen. The fascia was closed using interrupted 0 Polysorb sutures and the skin approximated with skin cristo. The left upper quadrant incision was closed with a skin staple. Patient tolerated the procedure well and was sent to PACU intubated with plans to go to the intensive care unit postoperative. All sponge instrument counts were correct. At the patient's request, I called her daughter, Sathish by telephone at [phone] and apprised her of the operation and need for intensive care unit monitoring. Her questions seemed to be satisfactorily answered.]
--- NOTE | 2022-02-03 18:44 | W.PM.CCCN ---
History of Present Illness Data of Consult Service Date: 02/03/22 Requesting physician: Alonzo Weiss Primary Care Provider: Ramsey Gooden MD [facility] Reason for consult: Ventilator dependence/longstanding COPD 81-year-old female with with his long history of COPD presents with abdominal pain nausea and vomiting noted to have small-bowel obstruction and required lysis of adhesion with the entire bowel being viable so there was no resection but required an open procedure because of hiatal hernia to properly bring down and place NG tube in the stomach comes out on the ventilator sedated and my bedside echo showed globally normal systolic wall motion of the left ventricle with normal RV function and no primary valve or pericardial disease initial CVP of 0 so she was placed on normal saline also because of what appeared to be a brief period of hypotension in the OR between 70 and 80 systolic she has got oliguria and what appears to be an early ATN situation but there still could be a pre renal component so will watch CVP measurements while giving normal saline and support blood pressure with Levophed Review of Systems Review of Systems: Yes Unobtainable due to mental status PMFSH Past Medical History Medical History (Updated 02/04/22 @ 14:11 by Lora Perez MD) Anxiety Chronic kidney disease COPD (chronic obstructive pulmonary disease) Gout Peripheral neuropathy Functional capacity: uses cane/walker Surgical History Surgical History H/O vaginal hysterectomy History of right hip replacement Social History Social History Alcohol intake: unknown Patient Tobacco Use Status: Never used Tobacco Advance Directives Date on File: 02/03/22 service: No Meds Allergies Allergy/AdvReac Type Severity Reaction Status Date / Time No Known Allergies Allergy Unverified 01/30/20 16:04 [No Known Allergies*] Active Medications: Current Medications Acetaminophen (Acetaminophen Supp 650 Mg Supp.Rect) 650 mg [place] Q6H PRN PRN Reason: Pain, Mild (Pain Scale 1-3) Acetaminophen (Acetaminophen 325 Mg Tablet) 650 mg PO Q6H PRN PRN Reason: Pain, Mild (Pain Scale 1-3) Last Admin: 02/03/22 07:46 Dose: 650 mg Albuterol/Ipratropium (Albuterol/Iprat 2.5/0.5mg 3 Ml Ampul.Neb) 3 ml INHALE RQ4H WHILE AWAKE [facility] Ceftriaxone Sodium 1 gm/ (Sodium Chloride) 50 mls @ 100 mls/hr IV Q24H [facility] Last Infusion: 02/02/22 19:14 Dose: Infused Norepinephrine Bitartrate (Levophed) 8 mg in 250 mls @ 0 mls/hr IVCONT .Q0M [facility]; Protocol Sodium Chloride (Ns) 1,000 mls @ 150 mls/hr IVCONT .Q6H40M [facility] Piperacillin Sod/Tazobactam (Sod 2.25 gm/ Sodium Chloride) 50 mls @ 100 mls/hr IV Q8H [facility] Propofol (Diprivan) 1,000 mg in 100 mls @ 0 mls/hr IVCONT .Q0M [facility]; Protocol Lidocaine (Lidocaine 4 % Patch Adh..Patch) 1 patch TRANSDERMA DAILY [facility]; Protocol Last Admin: 02/03/22 07:46 Dose: 1 patch Morphine Sulfate (Morphine Sulfate 4 Mg/Ml Cartridge) 4 mg IVPUSH Q4H PRN; Protocol PRN Reason: Pain, Severe (Pain Scale 7-10) Last Admin: 02/03/22 07:46 Dose: 4 mg Ondansetron HCl (Ondansetron Hcl 4 Mg/2 Ml Vial) 4 mg IVPUSH Q8H PRN PRN Reason: Nausea and Vomiting Last Admin: 02/03/22 07:45 Dose: 4 mg Pregabalin (Pregabalin 75 Mg Capsule) 75 mg PO BID [facility] Last Admin: 02/03/22 10:43 Dose: Not Given Sertraline HCl (Sertraline Hcl 100 Mg Tablet) 100 mg PO DAILY [facility] Last Admin: 02/03/22 07:47 Dose: 100 mg Sodium Chloride (0.9 % Sodium Chloride Flush 3 Ml Syringe) [facility] Last Admin: 02/03/22 07:46 Dose: 3 ml Sodium Chloride (0.9 % Sodium Chloride Flush 3 Ml Syringe) [facility] Home Medications Medication Instructions Recorded Confirmed Last Taken Type allopurinol 100 mg tablet 1 tab PO DAILY 02/02/22 02/02/22 Unknown History atorvastatin 20 mg tablet 1 tab PO DAILY 02/02/22 02/02/22 Unknown History pregabalin 75 mg capsule 1 cap PO BID 02/02/22 02/02/22 Unknown History sertraline 100 mg tablet 1 tab PO DAILY 02/02/22 02/02/22 Unknown History Physical Exam Vital Signs: Vital Signs: Last Vital Signs Temp 98.9 F 02/03/22 10:45 Pulse 87 02/03/22 10:45 Resp 19 02/03/22 10:45 BP 149/82 H 02/03/22 10:45 Pulse Ox 97 02/03/22 10:45 O2 Del Method Nasal Cannula 02/03/22 10:45 O2 Flow Rate 3.5 02/03/22 10:45 FiO2 50 02/03/22 18:36 BMI result Body Mass Index 27.5 Sedated and intubated with bedside echo showing class 1 systolic function Lungs clear by exam and by x-ray Abdomen without organomegaly Skin without acrocyanosis Results Labs CBC & Chem 7: 02/04/22 05:40 02/04/22 05:40 Labs: Short CBC 02/03/22 Range/Units 06:25 WBC 2.9 L (4.8-10.8) X10*3/uL Hgb 10.1 L (12.0-16.0) g/dl Hct 32.7 L (37.0-47.0) % Plt Count 206 (160-400) X10*3/uL BMP 02/03/22 06:25 Sodium 140 Potassium 4.7 Chloride 102 Carbon Dioxide 21 L BUN 39 H Creatinine 1.88 H Calcium 9.0 Microbiology Microbiology Results: Microbiology 02/02/22 00:00 Urine Catheterized - Straight Catheter Urine Culture - Final 02/01/22 21:06 Blood - Venous Blood Culture - Preliminary No growth after 24 hours. 02/01/22 19:26 Blood - Venous Blood Culture - Preliminary No growth after 24 hours. Assessment and Plan (1) Respiratory failure: Status: Acute (2) Gout: Status: Acute (3) Anxiety: Status: Acute (4) Hypomagnesemia: Status: Acute (5) H/O vaginal hysterectomy: Status: Acute (6) Peripheral neuropathy: Status: Acute (7) Chronic kidney disease: Status: Acute (8) Dehydration: Status: Acute (9) Small bowel obstruction: Status: Acute (10) COPD (chronic obstructive pulmonary disease): Status: Acute Plan The plan is to wean the sedation in the morning and assess cognitive function and if good a pressure support weaning trial from the ventilator and follow CVP closely because of the oliguria
[2022-02-03] MEDS: Albuterol/Iprat 2.5/0.5MG 3 ML AMPUL.NEB INHALE (19:03)
[2022-02-03] MEDS: 0.9 % Sodium Chloride 1,000 ML 150 ML IVCONT (20:00)
[2022-02-03] MEDS: Piperacillin Sodium/Tazobactam 2.25 GM in 0.9 % Sodium Chloride 50 ML IV (20:23)
[2022-02-03 20:27] LABS: Lactic Acid 1.1 mmol/L (0.5-2.0)
[2022-02-03 22:12] LABS: VBG Base Excess -5.9 mmol/L; VBG HCO3 19 mmol/L (22-26); VBG pCO2 39 mmHg; VBG pO2 43 mmHg
[2022-02-03 22:50] LABS: Alanine Aminotransferase 18 U/L (0-31); Albumin Level 2.9 g/dL (3.5-5.0); Alkaline Phosphatase 68 U/L (39-117); Anion Gap 19 (12-20); Aspartate Amino Transferase 32 U/L (5-31); Bilirubin Total 0.4 mg/dL (0.0-1.0); Blood Urea Nitrogen 47 mg/dL (9-16); Calcium 7.7 mg/dL (8.4-10.2); Carbon Dioxide 20 mmol/L (22-29); Chloride 103 mmol/L (96-108); Creatinine Clr Calc Pharmacy 18.1; Estimated Glomerular Filt Rate 23; Glucose Random 109 mg/dL (60-115); Magnesium 1.4 mg/dL (1.6-2.6); Phosphorus 6.5 mg/dL (2.7-4.5); Potassium 4.8 mmol/L (3.3-5.1); Sodium 137 mmol/L (135-145); Total Protein 4.8 g/dL (6.5-8.0)
[2022-02-03] MEDS: propofoL 1,000 MG/100 ML VIAL 15.34 MG IVCONT (23:00)
[2022-02-03] MEDS: Magnesium Sulfate/D5W 1 GM/100 ML PIGGYBACK IV (23:21)
[2022-02-03 23:34] LABS: Venous Blood Gas Refer to POC result
[2022-02-04] VITALS (35 sets, daily range): BP systolic 90–132; BP diastolic 50–72; PULSE 78–113; RESP 13–26; TEMP 34.8–37.6; O2SAT 90–100; BMI 27.5
[2022-02-04] MEDS: 0.9 % Sodium Chloride 500 ML IV (00:30)
[2022-02-04] MEDS: 0.9 % Sodium Chloride Flush 3 ML SYRINGE IVFLUSH ×2 (01:19)
[2022-02-04] MEDS: Chlorhexidine Gluc Oral Rinse 15 ML MOUTHWASH BUCCAL ×2 (01:23→08:40)
[2022-02-04] MEDS: Albumin Human 25 % 100 ML IV ×2 (01:45→02:54)
[2022-02-04] MEDS: 0.9 % Sodium Chloride 1,000 ML 150 ML IVCONT ×3 (01:52→14:19)
[2022-02-04] MEDS: Piperacillin Sodium/Tazobactam 2.25 GM in 0.9 % Sodium Chloride 50 ML IV ×3 (02:57→21:02)
[2022-02-04] MEDS: propofoL 1,000 MG/100 ML VIAL 15.34 MG IVCONT (05:06)
[2022-02-04 05:50] LABS: VBG Base Excess -5.5 mmol/L; VBG HCO3 19 mmol/L (22-26); VBG pCO2 36 mmHg; VBG pH 7.33 (7.32-7.43); VBG pO2 53 mmHg
[2022-02-04 06:02] LABS: Hematocrit 26.1 % (37.0-47.0); Hemoglobin 8.5 g/dl (12.0-16.0); Mean Corpuscular HGB Conc 32.6 g/dl (31.0-35.0); Mean Corpuscular Hemoglobin 32.9 pg (27.0-33.0); Mean Corpuscular Volume 101.2 fL (80.0-98.0); Mean Platelet Volume 9.7 fL (9.4-12.3); Platelet Count 181 X10*3/uL (160-400); Red Blood Count 2.58 X10*6/uL (4.20-5.50); Red Cell Distribution Width 14.7 % (11.0-16.0); White Blood Count 3.9 X10*3/uL (4.8-10.8)
[2022-02-04 06:25] LABS: Venous Blood Gas Refer to POC result
[2022-02-04 06:33] LABS: Alanine Aminotransferase 16 U/L (0-31); Albumin Level 3.3 g/dL (3.5-5.0); Alkaline Phosphatase 47 U/L (39-117); Anion Gap 19 (12-20); Aspartate Amino Transferase 31 U/L (5-31); Bilirubin Total 0.4 mg/dL (0.0-1.0); Blood Urea Nitrogen 48 mg/dL (9-16); Calcium 7.7 mg/dL (8.4-10.2); Carbon Dioxide 20 mmol/L (22-29); Chloride 105 mmol/L (96-108); Creatinine Clr Calc Pharmacy 16.8; Estimated Glomerular Filt Rate 21; Glucose Random 109 mg/dL (60-115); Magnesium 1.7 mg/dL (1.6-2.6); Potassium 4.5 mmol/L (3.3-5.1); Sodium 139 mmol/L (135-145); Total Protein 4.8 g/dL (6.5-8.0)
[2022-02-04 06:35] LABS: Band Neutrophils Percent 50 % (3-5); Lymphocytes Absolute Manual 0.3 X10*3/uL (1.2-4.9); Lymphocytes Percent Manual 7 % (20-40); Monocytes Absolute Manual 0.2 X10*3/uL (0.1-1.2); Monocytes Percent Manual 4 % (2-11); Neutrophils Absolute Manual 3.5 X10*3/uL (2.0-8.3); Neutrophils Percent Manual 39 % (45-73)
[2022-02-04 06:36] LABS: Basophilic Stippling 1+ (0-2) /OIF; Platelet Estimate NORMAL (NORMAL); Platelet Morphology Comment NORMAL; Polychromasia 1+ (0-2) /OIF; RBC Morphology NOTED; Schistocytes 1+ (0-2) /OIF
[2022-02-04] MEDS: Albuterol/Iprat 2.5/0.5MG 3 ML AMPUL.NEB INHALE ×4 (08:09→20:59)
[2022-02-04] MEDS: Morphine Sulfate 4 MG/ML CARTRIDGE IVPUSH ×2 (08:39→14:18)
[2022-02-04] MEDS: propofoL 1,000 MG/100 ML VIAL 19.17 MG IVCONT (08:47)
--- NOTE | 2022-02-04 08:49 | PM.PNGS ---
Subjective Subjective Date of Service: 02/04/22 Interval history: The patient is intubated and sedated. She does respond when I call her name by turning her head, but does not open her eyes. Physical Exam Vital Signs: Vital Signs: Last Vital Signs Temp 99.2 F 02/04/22 04:00 Pulse 97 02/04/22 08:11 Resp 19 02/04/22 08:11 BP 122/64 02/04/22 07:00 Pulse Ox 95 02/04/22 07:00 O2 Del Method 02/04/22 07:00 O2 Flow Rate 3.5 02/03/22 10:45 FiO2 40 02/04/22 08:12 BMI result Body Mass Index 27.5 Abdominal dressings are clean, dry and intact Urine is clear Nasogastric aspirate is feculent and non bilious Objective Data Active Medications Acetaminophen (Acetaminophen Supp 650 Mg Supp.Rect) 650 mg [place] Q6H PRN PRN Reason: Pain, Mild (Pain Scale 1-3) Acetaminophen (Acetaminophen 325 Mg Tablet) 650 mg PO Q6H PRN PRN Reason: Pain, Mild (Pain Scale 1-3) Last Admin: 02/03/22 07:46 Dose: 650 mg Documented By: NEENA Albuterol/Ipratropium (Albuterol/Iprat 2.5/0.5mg 3 Ml Ampul.Neb) 3 ml INHALE RQ4H WHILE AWAKE [facility] Last Admin: 02/04/22 08:09 Dose: 3 ml Documented By: MARISA Chlorhexidine Gluconate (Chlorhexidine Gluc Oral Rinse 15 Ml Mouthwash) 15 ml BUCCAL TID [facility] Last Admin: 02/04/22 08:40 Dose: 15 ml Documented By: LANE Norepinephrine Bitartrate (Levophed) 8 mg in 250 mls @ 0 mls/hr IVCONT .Q0M [facility]; Protocol Last Admin: 02/04/22 08:45 Dose: 0.03 mcg/kg/min, 3.59 mls/hr Documented By: LANE Sodium Chloride (Ns) 1,000 mls @ 150 mls/hr IVCONT .Q6H40M [facility] Last Admin: 02/04/22 08:41 Dose: 150 mls/hr Documented By: RILEY-EJ Piperacillin Sod/Tazobactam (Sod 2.25 gm/ Sodium Chloride) 50 mls @ 100 mls/hr IV Q8H [facility] Last Infusion: 02/04/22 04:57 Dose: 0 mls/hr Documented By: SEBASTIAN Propofol (Diprivan) 1,000 mg in 100 mls @ 0 mls/hr IVCONT .Q0M [facility]; Protocol Last Admin: 02/04/22 08:47 Dose: 50 mcg/kg/min, 19.17 mls/hr Documented By: LANE Lidocaine (Lidocaine 4 % Patch Adh..Patch) 1 patch TRANSDERMA DAILY [facility]; Protocol Last Admin: 02/04/22 08:42 Dose: Not Given Documented By: LANE Non-Admin Reason: Previously Administered Morphine Sulfate (Morphine Sulfate 4 Mg/Ml Cartridge) 4 mg IVPUSH Q4H PRN; Protocol PRN Reason: Pain, Severe (Pain Scale 7-10) Last Admin: 02/04/22 08:39 Dose: 4 mg Documented By: LANE Ondansetron HCl (Ondansetron Hcl 4 Mg/2 Ml Vial) 4 mg IVPUSH Q8H PRN PRN Reason: Nausea and Vomiting Last Admin: 02/03/22 07:45 Dose: 4 mg Documented By: NEENA Sodium Chloride (0.9 % Sodium Chloride Flush 3 Ml Syringe) 3 ml IVFLUSH QSHIFT [facility] Last Admin: 02/04/22 07:28 Dose: Not Given Documented By: LANE Non-Admin Reason: See Note Labs CBC & Chem 7: 02/04/22 05:40 02/04/22 05:40 Labs: Laboratory Results - last 24 hr 02/03/22 02/03/22 02/03/22 09:36 19:56 21:59 MCV MCH MCHC RDW Plt Count MPV Immature Gran % (Auto) Neut % (Auto) Lymph % (Auto) [place] % (Auto) Eos % (Auto) Baso % (Auto) Lymph # (Auto) [place] # (Auto) Eos # (Auto) Baso # (Auto) Abs Immat Gran (auto) Absolute Neuts (auto) Absolute Nucleated RBC Nucleated RBC % (auto) Neutrophils % (Manual) Band Neutrophils % Lymphocytes % (Manual) Monocytes % (Manual) Abs Neuts (Manual) Lymphocytes # (Manual) Monocytes # (Manual) Platelet Estimate Plt Morphology Comment RBC Morphology Polychromasia Basophilic Stippling Schistocytes VBG pH VBG pCO2 VBG pO2 VBG HCO3 VBG O2 Saturation VBG Base Excess Anion Gap 19 Estim Creat Clear Calc 18.1 Estimated GFR 23 Random Glucose 109 Lactic Acid 1.1 Calcium 7.7 L D Phosphorus 6.5 H Magnesium 1.4 L* Total Bilirubin 0.4 AST 32 H ALT 18 Alkaline Phosphatase 68 D Total Protein 4.8 L D Albumin 2.9 L D Blood Type A Positive Antibody Screen NEGATIVE 02/03/22 02/04/22 02/04/22 22:01 05:40 05:40 MCV 101.2 H MCH 32.9 MCHC 32.6 RDW 14.7 Plt Count 181 MPV 9.7 Immature Gran % (Auto) Cancelled Neut % (Auto) Cancelled Lymph % (Auto) Cancelled [place] % (Auto) Cancelled Eos % (Auto) Cancelled Baso % (Auto) Cancelled Lymph # (Auto) Cancelled [place] # (Auto) Cancelled Eos # (Auto) Cancelled Baso # (Auto) Cancelled Abs Immat Gran (auto) Cancelled Absolute Neuts (auto) Cancelled Absolute Nucleated RBC 0.000 Nucleated RBC % (auto) 0.0 Neutrophils % (Manual) 39 L Band Neutrophils % 50 H Lymphocytes % (Manual) 7 L Monocytes % (Manual) 4 Abs Neuts (Manual) 3.5 Lymphocytes # (Manual) 0.3 L Monocytes # (Manual) 0.2 Platelet Estimate NORMAL Plt Morphology Comment NORMAL RBC Morphology NOTED Polychromasia 1+ (0-2) Basophilic Stippling 1+ (0-2) Schistocytes 1+ (0-2) VBG pH 7.30 L VBG pCO2 39 VBG pO2 43 VBG HCO3 19 L VBG O2 Saturation 67.0 VBG Base Excess -5.9 Anion Gap 19 Estim Creat Clear Calc 16.8 Estimated GFR 21 Random Glucose 109 Lactic Acid Calcium 7.7 L Phosphorus 6.0 H Magnesium 1.7 Total Bilirubin 0.4 AST 31 ALT 16 Alkaline Phosphatase 47 D Total Protein 4.8 L Albumin 3.3 L Blood Type Antibody Screen 02/04/22 05:44 MCV MCH MCHC RDW Plt Count MPV Immature Gran % (Auto) Neut % (Auto) Lymph % (Auto) [place] % (Auto) Eos % (Auto) Baso % (Auto) Lymph # (Auto) [place] # (Auto) Eos # (Auto) Baso # (Auto) Abs Immat Gran (auto) Absolute Neuts (auto) Absolute Nucleated RBC Nucleated RBC % (auto) Neutrophils % (Manual) Band Neutrophils % Lymphocytes % (Manual) Monocytes % (Manual) Abs Neuts (Manual) Lymphocytes # (Manual) Monocytes # (Manual) Platelet Estimate Plt Morphology Comment RBC Morphology Polychromasia Basophilic Stippling Schistocytes VBG pH 7.33 VBG pCO2 36 VBG pO2 53 VBG HCO3 19 L VBG O2 Saturation 82.0 VBG Base Excess -5.5 Anion Gap Estim Creat Clear Calc Estimated GFR Random Glucose Lactic Acid Calcium Phosphorus Magnesium Total Bilirubin AST ALT Alkaline Phosphatase Total Protein Albumin Blood Type Antibody Screen Microbiology Microbiology Results: Microbiology 02/01/22 21:06 Blood Culture - Preliminary Blood - Venous No growth after 48 hours. 02/01/22 19:26 Blood Culture - Preliminary Blood - Venous No growth after 48 hours. 02/02/22 00:00 Urine Culture - Final Urine Catheterized - Straight Catheter Procedures Date of Service Date of Service: 02/04/22 Progress Note: A&P Assessment and plan (1) Small bowel obstruction: Status: Acute (2) Chronic kidney disease: Status: Acute (3) Peripheral neuropathy: Status: Acute (4) Respiratory failure: Status: Acute Plan Continue NPO, nasogastric tube-DO NOT REMOVE NASOGASTRIC TUBE WITHOUT ORDER FROM DR. SO. Await bowel function. The nasogastric tube placement was very complicated, so I would like to assure good bowel function before removing it. Continue antibiotics for presumed pneumonia/pneumonitis. Plan as per vocational horticulture instructor team. I contacted the patient's daughter, Sathish, at [phone] and apprised her of the probable plan to allow the patient to wake and possibly extubate, however I also explained that her kyphoscoliosis has unique challenges regarding her airway and postoperative management. The need to proceed in the safest manner was reinforced and apparently understood. Time Spent With Patient Time: Total time spent is greater than 50% in coordination of care (as documented) at patient's floor/unit and/or counseling patient: Quality Stroke Does the patient have a stroke diagnosis?: No VTE Prior VTE?: No VTE Risk Level:: Medical - moderate - high VTE Device Contraindication: N/A - Device Ordered VTE Drug Contraindication: Treatment Not Indicated
--- NOTE | 2022-02-04 09:43 | PC.NURSE ---
Addendum entered by Salo Barkley RN 02/04/22 17:09: Pt extubated successfully with Rt and this RN at bedside. Placed on O2 via n/c at 5L, able to talk. MD stated Ok to give pt ice chips. pt tolerating w/ no issues. pt bathed this shift. family at bedside, visitors phone # given to MD for update. central line dressing changed. per MD keep jurado in place. Pt BP stable while off Levo, md was informed. Original Note: pt agitated and anxious at start of shift. drip titrated per protocol. per perform sedation vacation and place pt on PSV, continue to assess for possible extubation today. md assessed pt at bedside. RT informed
--- NOTE | 2022-02-04 11:28 | MHC.CLN ---
RE: CONSULT PT IS INTUBATED AND SEDATED IF TF NEEDED; RECOMMEND PROMOTE AT MAX GOAL RATE 40ML/HR TO PROVIDE 960KCALS, 60G PROTEIN (1.2G/KG), 805ML FREE WATER FROM FORMULA MONITOR TOLERANCE, RESIDUALS, AND LYTES SEE ALSO FULL CLINICAL NUTRITION ASSESSMENT
--- NOTE | 2022-02-04 14:17 | PM.CCPN ---
Subjective Subjective Date of Service: 02/04/22 Interval History: 81-year-old female status post open lysis of adhesion to relieve small-bowel obstruction with completely viable bowel background history of COPD currently sedated and ventilated and then subsequent to that we did replete her mild hypo magnesemia and gave her a sedation free trial with with excellent cognitive function and then PSV trial weaning her down to peak airway pressure of only 13 with which she had good tidal volumes respiratory rate in the low 20s and she was able to do a double the volume with vital capacity and so she was comfortably extubated doing well and with CVP last measuring 3 on the IV normal saline we were able to wean and discontinue the Levophed and she still maintains good vital signs and urine output and comfortable respiratory status Critical Care Time (minutes): 45 Physical Exam Vital Signs: Vital Signs: Last Vital Signs Temp 99.6 F 02/04/22 12:00 Pulse 110 H 02/04/22 12:00 Resp 24 H 02/04/22 11:26 BP 94/62 02/04/22 12:00 Pulse Ox 92 02/04/22 12:00 O2 Del Method 02/04/22 12:00 O2 Flow Rate 6 02/04/22 12:00 FiO2 35 02/04/22 11:22 BMI result Body Mass Index 27.5 Awake alert with good cognitive function comfortable breathing Abdomen relatively soft no organomegaly Bedside echo with class 1 LV function Chest with diminished bilateral breath sounds but no adventitious sounds no effort Objective Data Labs CBC & Chem 7: 02/04/22 05:40 02/04/22 05:40 Labs: Laboratory Results - last 24 hr 02/03/22 02/03/22 02/03/22 19:56 21:59 22:01 WBC RBC Hgb Hct MCV MCH MCHC RDW Plt Count MPV Immature Gran % (Auto) Neut % (Auto) Lymph % (Auto) [place] % (Auto) Eos % (Auto) Baso % (Auto) Lymph # (Auto) [place] # (Auto) Eos # (Auto) Baso # (Auto) Abs Immat Gran (auto) Absolute Neuts (auto) Absolute Nucleated RBC Nucleated RBC % (auto) Neutrophils % (Manual) Band Neutrophils % Lymphocytes % (Manual) Monocytes % (Manual) Abs Neuts (Manual) Lymphocytes # (Manual) Monocytes # (Manual) Platelet Estimate Plt Morphology Comment RBC Morphology Polychromasia Basophilic Stippling Schistocytes VBG pH 7.30 L VBG pCO2 39 VBG pO2 43 VBG HCO3 19 L VBG O2 Saturation 67.0 VBG Base Excess -5.9 Sodium 137 Potassium 4.8 Chloride 103 Carbon Dioxide 20 L Anion Gap 19 BUN 47 H Creatinine 2.06 H Estim Creat Clear Calc 18.1 Estimated GFR 23 Random Glucose 109 Lactic Acid 1.1 Calcium 7.7 L D Phosphorus 6.5 H Magnesium 1.4 L* Total Bilirubin 0.4 AST 32 H ALT 18 Alkaline Phosphatase 68 D Total Protein 4.8 L D Albumin 2.9 L D 02/04/22 02/04/22 02/04/22 05:40 05:40 05:44 WBC 3.9 L RBC 2.58 L Hgb 8.5 L Hct 26.1 L D MCV 101.2 H MCH 32.9 MCHC 32.6 RDW 14.7 Plt Count 181 MPV 9.7 Immature Gran % (Auto) Cancelled Neut % (Auto) Cancelled Lymph % (Auto) Cancelled [place] % (Auto) Cancelled Eos % (Auto) Cancelled Baso % (Auto) Cancelled Lymph # (Auto) Cancelled [place] # (Auto) Cancelled Eos # (Auto) Cancelled Baso # (Auto) Cancelled Abs Immat Gran (auto) Cancelled Absolute Neuts (auto) Cancelled Absolute Nucleated RBC 0.000 Nucleated RBC % (auto) 0.0 Neutrophils % (Manual) 39 L Band Neutrophils % 50 H Lymphocytes % (Manual) 7 L Monocytes % (Manual) 4 Abs Neuts (Manual) 3.5 Lymphocytes # (Manual) 0.3 L Monocytes # (Manual) 0.2 Platelet Estimate NORMAL Plt Morphology Comment NORMAL RBC Morphology NOTED Polychromasia 1+ (0-2) Basophilic Stippling 1+ (0-2) Schistocytes 1+ (0-2) VBG pH 7.33 VBG pCO2 36 VBG pO2 53 VBG HCO3 19 L VBG O2 Saturation 82.0 VBG Base Excess -5.5 Sodium 139 Potassium 4.5 Chloride 105 Carbon Dioxide 20 L Anion Gap 19 BUN 48 H Creatinine 2.22 H Estim Creat Clear Calc 16.8 Estimated GFR 21 Random Glucose 109 Lactic Acid Calcium 7.7 L Phosphorus 6.0 H Magnesium 1.7 Total Bilirubin 0.4 AST 31 ALT 16 Alkaline Phosphatase 47 D Total Protein 4.8 L Albumin 3.3 L Microbiology Microbiology Results: Microbiology 02/01/22 21:06 Blood - Venous Blood Culture - Preliminary No growth after 48 hours. 02/01/22 19:26 Blood - Venous Blood Culture - Preliminary No growth after 48 hours. 02/02/22 00:00 Urine Catheterized - Straight Catheter Urine Culture - Final Progress Note: A&P Assessment and plan (1) COPD (chronic obstructive pulmonary disease): Status: Acute (2) Respiratory failure: Status: Acute (3) Gout: Status: Acute (4) Anxiety: Status: Acute (5) Hypomagnesemia: Status: Acute (6) H/O vaginal hysterectomy: Status: Acute (7) Peripheral neuropathy: Status: Acute (8) Chronic kidney disease: Status: Acute (9) Dehydration: Status: Acute (10) Small bowel obstruction: Status: Acute Plan Doing beautifully with extubation and off Levophed support remains on IV normal saline and has since become nonoliguric so I expect repair of this ATN Quality Stroke Does the patient have a stroke diagnosis?: No VTE Prior VTE?: No VTE Risk Level:: Medical - moderate - high VTE Device Contraindication: N/A - Device Ordered VTE Drug Contraindication: Treatment Not Indicated
--- NOTE | 2022-02-04 14:47 | HO.POSTANES ---
Post Anesthesia Evaluation Post Anesthesia Evaluation Vital Signs: Vital Signs Temp Pulse Resp BP Pulse Ox O2 Del Method O2 Flow Rate 02/04/22 14:00 113 H 22 H 118/72 97 Nasal Cannula 6 02/04/22 13:00 109 H 26 H 105/69 91 L Nasal Cannula 6 02/04/22 11:26 105 H 24 H 02/04/22 11:22 02/04/22 11:18 111/65 02/04/22 09:48 02/04/22 08:12 02/04/22 08:11 97 19 02/04/22 12:00 99.6 F 110 H 94/62 92 Nasal Cannula 6 02/04/22 11:00 107 H 114/71 94 Mechanical Ventilation 02/04/22 10:00 105 H 22 H 112/63 96 Mechanical Ventilation 02/04/22 09:00 102 H 20 101/50 L 93 Mechanical Ventilation 02/04/22 08:00 99.6 F 78 19 132/72 93 Mechanical Ventilation 02/04/22 07:00 95 18 122/64 95 Mechanical Ventilation 02/04/22 05:59 84 17 115/58 L 98 Mechanical Ventilation 02/04/22 04:25 02/04/22 05:00 80 20 104/56 L 99 Mechanical Ventilation 02/04/22 03:57 89 13 105/59 L 96 Mechanical Ventilation 02/04/22 02:56 85 17 94/57 L 98 Mechanical Ventilation 02/04/22 04:00 99.2 F 88 16 95/55 L 96 Mechanical Ventilation FiO2 02/04/22 14:00 02/04/22 13:00 02/04/22 11:26 02/04/22 11:22 35 02/04/22 11:18 02/04/22 09:48 40 02/04/22 08:12 40 02/04/22 08:11 02/04/22 12:00 02/04/22 11:00 40 02/04/22 10:00 40 02/04/22 09:00 50 02/04/22 08:00 50 02/04/22 07:00 50 02/04/22 05:59 50 02/04/22 04:25 50 02/04/22 05:00 50 02/04/22 03:57 50 02/04/22 02:56 50 02/04/22 04:00 50 Anesthesia: General Endotracheal-GETA Mental Status: Sedated Pain Control: Satisfactory Nausea/Vomiting: None Hydration: Adequate Anesthesia-Related Issues: No Anes. Related Issues Comments: intubated
[2022-02-05] VITALS (9 sets, daily range): BP systolic 101–137; BP diastolic 55–78; PULSE 81–96; RESP 16–22; TEMP 36.3–36.9; O2SAT 95–100
[2022-02-05] MEDS: 0.9 % Sodium Chloride Flush 3 ML SYRINGE IVFLUSH ×2 (03:35→07:36)
[2022-02-05] MEDS: Piperacillin Sodium/Tazobactam 2.25 GM in 0.9 % Sodium Chloride 50 ML IV ×3 (03:35→19:44)
[2022-02-05] MEDS: 0.9 % Sodium Chloride 1,000 ML 75 ML IVCONT ×2 (06:16→10:53)
[2022-02-05 06:30] LABS: Venous Blood Gas Refer to POC result
[2022-02-05 06:31] LABS: Hematocrit 28.2 % (37.0-47.0); Hemoglobin 8.8 g/dl (12.0-16.0); Mean Corpuscular HGB Conc 31.2 g/dl (31.0-35.0); Mean Corpuscular Hemoglobin 32.4 pg (27.0-33.0); Mean Corpuscular Volume 103.7 fL (80.0-98.0); Mean Platelet Volume 9.9 fL (9.4-12.3); Platelet Count 190 X10*3/uL (160-400); Red Blood Count 2.72 X10*6/uL (4.20-5.50); Red Cell Distribution Width 15.1 % (11.0-16.0); White Blood Count 5.1 X10*3/uL (4.8-10.8)
[2022-02-05 06:31] LABS: VBG Base Excess -8.7 mmol/L; VBG HCO3 17 mmol/L (22-26); VBG pCO2 35 mmHg; VBG pH 7.28 (7.32-7.43); VBG pO2 91 mmHg
[2022-02-05 07:22] LABS: Alanine Aminotransferase 33 U/L (0-31); Albumin Level 3.5 g/dL (3.5-5.0); Alkaline Phosphatase 62 U/L (39-117); Aspartate Amino Transferase 71 U/L (5-31); Bilirubin Total 0.6 mg/dL (0.0-1.0); Blood Urea Nitrogen 56 mg/dL (9-16); Calcium 8.2 mg/dL (8.4-10.2); Creatinine Clr Calc Pharmacy 15.3; Estimated Glomerular Filt Rate 19; Glucose Random 108 mg/dL (60-115); Magnesium 1.8 mg/dL (1.6-2.6); Phosphorus 6.2 mg/dL (2.7-4.5); Total Protein 5.6 g/dL (6.5-8.0)
[2022-02-05] MEDS: Lidocaine 4 % Patch ADH..PATCH 1 PATCH TRANSDERMA (07:35)
[2022-02-05] MEDS: Albuterol/Iprat 2.5/0.5MG 3 ML AMPUL.NEB INHALE ×2 (07:44→21:15)
[2022-02-05 08:02] LABS: Anion Gap 23 (12-20); Carbon Dioxide 14 mmol/L (22-29); Chloride 107 mmol/L (96-108); Potassium 4.4 mmol/L (3.3-5.1); Sodium 140 mmol/L (135-145)
[2022-02-05 08:07] LABS: Band Neutrophils Percent 14 % (3-5); Basophils Abs Manual 0.1 X10*3/uL (0.0-0.2); Basophils Percent Manual 1 % (0-2); Eosinophils Absolute Manual 0.1 X10*3/uL (0.0-0.4); Eosinophils Percent Manual 1 % (0-4); Lymphocytes Absolute Manual 0.5 X10*3/uL (1.2-4.9); Lymphocytes Percent Manual 9 % (20-40); Monocytes Absolute Manual 0.6 X10*3/uL (0.1-1.2); Monocytes Percent Manual 11 % (2-11); Neutrophils Percent Manual 64 % (45-73)
[2022-02-05 08:09] LABS: RBC Morphology NOTED
[2022-02-05 08:11] LABS: Burr Cells 3+ (>5) /OIF; Macrocytosis 1+ (5-14) /OIF; Polychromasia 1+ (0-2) /OIF; Schistocytes 1+ (0-2) /OIF
[2022-02-05 08:14] LABS: Platelet Estimate NORMAL (NORMAL); Platelet Morphology Comment NORMAL; Toxic Vacuolation PRESENT
--- NOTE | 2022-02-05 10:21 | P.PNGS_ITS ---
Subjective Subjective Date of Service: 02/06/22 Interval history: transferred out of ICU last night says she is okay thirsty denies severe pain still has NG tube denies flatus Physical Exam Vital Signs: Vital Signs: Last Vital Signs Temp 97.3 F 02/05/22 07:45 Pulse 85 02/05/22 07:45 Resp 22 H 02/05/22 07:45 BP 115/67 02/05/22 07:45 Pulse Ox 98 02/05/22 07:45 O2 Del Method 02/05/22 07:45 O2 Flow Rate 3 02/05/22 07:45 FiO2 35 02/04/22 11:22 BMI result Body Mass Index 27.5 Const: Other: sitting on recliner General: comfortable and no acute distress Resp: Effort & Inspection: normal respiratory effort Cardio: Rate: regular rate GI: Other: NG tube in place, dressings dry Palpation (GI): Soft to palpation, not firm and no guarding Objective Data Active Medications Acetaminophen (Acetaminophen Supp 650 Mg Supp.Rect) 650 mg [place] Q6H PRN PRN Reason: Pain, Mild (Pain Scale 1-3) Acetaminophen (Acetaminophen 325 Mg Tablet) 650 mg PO Q6H PRN PRN Reason: Pain, Mild (Pain Scale 1-3) Last Admin: 02/03/22 07:46 Dose: 650 mg Documented By: NEENA Albuterol/Ipratropium (Albuterol/Iprat 2.5/0.5mg 3 Ml Ampul.Neb) 3 ml INHALE RQ4H WHILE AWAKE [facility] Last Admin: 02/05/22 07:44 Dose: 3 ml Documented By: JERSON Sodium Chloride (Ns) 1,000 mls @ 100 mls/hr IVCONT .Q10H [facility] Last Admin: 02/05/22 06:16 Dose: 75 mls/hr Documented By: SHRAVAN Piperacillin Sod/Tazobactam (Sod 2.25 gm/ Sodium Chloride) 50 mls @ 100 mls/hr IV Q8H [facility] Last Infusion: 02/05/22 04:30 Dose: 100 mls/hr Documented By: SHRAVAN Lidocaine (Lidocaine 4 % Patch Adh..Patch) 1 patch TRANSDERMA DAILY [facility]; Protocol Last Admin: 02/05/22 07:35 Dose: 1 patch Documented By: MANULE Morphine Sulfate (Morphine Sulfate 4 Mg/Ml Cartridge) 3 mg IVPUSH Q4H PRN; Protocol PRN Reason: Pain, Severe (Pain Scale 7-10) Ondansetron HCl (Ondansetron Hcl 4 Mg/2 Ml Vial) 4 mg IVPUSH Q8H PRN PRN Reason: Nausea and Vomiting Last Admin: 02/03/22 07:45 Dose: 4 mg Documented By: NEENA Sodium Chloride (0.9 % Sodium Chloride Flush 3 Ml Syringe) [facility] Last Admin: 02/05/22 07:36 Dose: 3 ml Documented By: MANUEL Labs CBC & Chem 7: 02/06/22 06:05 02/06/22 06:05 Labs: Laboratory Results - last 24 hr 02/05/22 02/05/22 02/05/22 06:20 06:20 06:25 MCV 103.7 H MCH 32.4 MCHC 31.2 RDW 15.1 Plt Count 190 MPV 9.9 Immature Gran % (Auto) Cancelled Neut % (Auto) Cancelled Lymph % (Auto) Cancelled [place] % (Auto) Cancelled Eos % (Auto) Cancelled Baso % (Auto) Cancelled Lymph # (Auto) Cancelled [place] # (Auto) Cancelled Eos # (Auto) Cancelled Baso # (Auto) Cancelled Abs Immat Gran (auto) Cancelled Absolute Neuts (auto) Cancelled Absolute Nucleated RBC 0.000 Nucleated RBC % (auto) 0.0 Neutrophils % (Manual) 64 Band Neutrophils % 14 H Lymphocytes % (Manual) 9 L Monocytes % (Manual) 11 Eosinophils % (Manual) 1 Basophils % (Manual) 1 Abs Neuts (Manual) 4.0 Lymphocytes # (Manual) 0.5 L Monocytes # (Manual) 0.6 Eosinophils # (Manual) 0.1 Basophils # (Manual) 0.1 Toxic Vacuolation PRESENT Platelet Estimate NORMAL Plt Morphology Comment NORMAL RBC Morphology NOTED Polychromasia 1+ (0-2) Macrocytosis 1+ (5-14) [place] Cells 3+ (>5) Schistocytes 1+ (0-2) VBG pH 7.28 L VBG pCO2 35 VBG pO2 91 VBG HCO3 17 L VBG O2 Saturation 97.0 VBG Base Excess -8.7 Anion Gap 23 H Estim Creat Clear Calc 15.3 Estimated GFR 19 Random Glucose 108 Calcium 8.2 L D Phosphorus 6.2 H Magnesium 1.8 Total Bilirubin 0.6 AST 71 H ALT 33 H Alkaline Phosphatase 62 D Total Protein 5.6 L Albumin 3.5 Procedures Date of Service Date of Service: 02/06/22 Progress Note: A&P Assessment and plan (1) Small bowel obstruction: Status: Acute Assessment and Plan: status post ex lap, lysis of adhesion actually looks well - she was ventilator postop, extubated yesterday will monitor NG tube output - DC once this is decreasing creatinine elevated - likely volume depletion abdomen soft and benign currently out of bed on recliner seems to be comfortable postop Time Spent With Patient Time: Total time spent is greater than 50% in coordination of care (as documented) at patient's floor/unit and/or counseling patient: Quality Stroke Does the patient have a stroke diagnosis?: No VTE Prior VTE?: No VTE Risk Level:: Medical - moderate - high VTE Device Contraindication: N/A - Device Ordered VTE Drug Contraindication: Treatment Not Indicated
--- NOTE | 2022-02-05 14:23 | HO.PM.IMPN ---
Subjective Subjective Date of Service: 02/05/22 Interval History: seen and examined this morning follow up for SBO.pt s/p laparotomy on 02/03 and remained intubated and went to ICU overnight. She was extubated 02/04 and downgraded from the ICU overnight She reports that her pain is under adequate control this morning. Although she appears somewhat short of breath she denies any shortness of breath or cough. She denies any fever, chills. She does report some discomfort secondary to the NG tube. not passing gas, no BM Review of Systems Review of Systems: Yes all other systems are reviewed and are negative Constitutional Constitutional: Denies chills and Denies fever(s) ENT Ears, Nose, Mouth, and Throat: Denies dizziness Cardiovascular Cardiovascular: Denies chest pain, Denies palpitations and Denies dyspnea Respiratory Respiratory: Denies cough and Denies dyspnea Gastrointestinal Gastrointestinal: Denies abdominal pain, Denies diarrhea, Denies nausea and Denies vomiting Neurologic Neurologic: Denies dizziness Endocrine Endocrine: Denies palpitations Physical Exam Vital Signs: Vital Signs: Last Vital Signs Temp 97.8 F 02/05/22 12:00 Pulse 87 02/05/22 12:00 Resp 22 H 02/05/22 12:00 BP 131/78 02/05/22 12:00 Pulse Ox 99 02/05/22 12:00 O2 Del Method 02/05/22 12:00 O2 Flow Rate 3 02/05/22 12:00 FiO2 35 02/04/22 11:22 BMI result Body Mass Index 27.5 Const: General: cooperative, alert and awake Nutritional Appearance: average body habitus Orientation/consciousness: patient oriented x3 HEENT: Other: NGT in place with scant output Resp: Other: appears somewhat tachypneic but pt denies sob Effort & Inspection: able to speak in complete sentences Cardio: Rate: regular rate Heart sounds: S1 normal heart sound present and S2 normal heart sound present GI: Other: Midline abdominal incision with clean/dry/intact dressing with no staining Abdomen soft, positive bowel sounds : Other: jurado draining clear urine Neuro: General: patient oriented x3 and CN's II-XI intact bilaterally Extrem: Other: Able to move all 4 extremities spontaneously General: Yes no pedal edema Objective Data Active Medications Acetaminophen (Acetaminophen Supp 650 Mg Supp.Rect) 650 mg [place] Q6H PRN PRN Reason: Pain, Mild (Pain Scale 1-3) Acetaminophen (Acetaminophen 325 Mg Tablet) 650 mg PO Q6H PRN PRN Reason: Pain, Mild (Pain Scale 1-3) Last Admin: 02/03/22 07:46 Dose: 650 mg Documented By: NEENA Albuterol/Ipratropium (Albuterol/Iprat 2.5/0.5mg 3 Ml Ampul.Neb) 3 ml INHALE RQ4H WHILE AWAKE [facility] Last Admin: 02/05/22 11:12 Dose: Not Given Documented By: JERSON Non-Admin Reason: Patient Refused Sodium Chloride (Ns) 1,000 mls @ 100 mls/hr IVCONT .Q10H [facility] Last Admin: 02/05/22 10:53 Dose: 75 mls/hr Documented By: MANUEL Piperacillin Sod/Tazobactam (Sod 2.25 gm/ Sodium Chloride) 50 mls @ 100 mls/hr IV Q8H [facility] Last Infusion: 02/05/22 12:20 Dose: 0 mls/hr Documented By: MANUEL Lidocaine (Lidocaine 4 % Patch Adh..Patch) 1 patch TRANSDERMA DAILY [facility]; Protocol Last Admin: 02/05/22 07:35 Dose: 1 patch Documented By: MANUEL Morphine Sulfate (Morphine Sulfate 4 Mg/Ml Cartridge) 3 mg IVPUSH Q4H PRN; Protocol PRN Reason: Pain, Severe (Pain Scale 7-10) Ondansetron HCl (Ondansetron Hcl 4 Mg/2 Ml Vial) 4 mg IVPUSH Q8H PRN PRN Reason: Nausea and Vomiting Last Admin: 02/03/22 07:45 Dose: 4 mg Documented By: NEENA Sodium Chloride (0.9 % Sodium Chloride Flush 3 Ml Syringe) 3 ml IVFLUSH QSHIFT [facility] Last Admin: 02/05/22 07:36 Dose: 3 ml Documented By: MANUEL Labs CBC & Chem 7: 02/05/22 06:20 02/05/22 06:20 Labs: Laboratory Results - last 24 hr 02/05/22 02/05/22 02/05/22 06:20 06:20 06:25 MCV 103.7 H MCH 32.4 MCHC 31.2 RDW 15.1 Plt Count 190 MPV 9.9 Immature Gran % (Auto) Cancelled Neut % (Auto) Cancelled Lymph % (Auto) Cancelled [place] % (Auto) Cancelled Eos % (Auto) Cancelled Baso % (Auto) Cancelled Lymph # (Auto) Cancelled [place] # (Auto) Cancelled Eos # (Auto) Cancelled Baso # (Auto) Cancelled Abs Immat Gran (auto) Cancelled Absolute Neuts (auto) Cancelled Absolute Nucleated RBC 0.000 Nucleated RBC % (auto) 0.0 Neutrophils % (Manual) 64 Band Neutrophils % 14 H Lymphocytes % (Manual) 9 L Monocytes % (Manual) 11 Eosinophils % (Manual) 1 Basophils % (Manual) 1 Abs Neuts (Manual) 4.0 Lymphocytes # (Manual) 0.5 L Monocytes # (Manual) 0.6 Eosinophils # (Manual) 0.1 Basophils # (Manual) 0.1 Toxic Vacuolation PRESENT Platelet Estimate NORMAL Plt Morphology Comment NORMAL RBC Morphology NOTED Polychromasia 1+ (0-2) Macrocytosis 1+ (5-14) [place] Cells 3+ (>5) Schistocytes 1+ (0-2) VBG pH 7.28 L VBG pCO2 35 VBG pO2 91 VBG HCO3 17 L VBG O2 Saturation 97.0 VBG Base Excess -8.7 Anion Gap 23 H Estim Creat Clear Calc 15.3 Estimated GFR 19 Random Glucose 108 Calcium 8.2 L D Phosphorus 6.2 H Magnesium 1.8 Total Bilirubin 0.6 AST 71 H ALT 33 H Alkaline Phosphatase 62 D Total Protein 5.6 L Albumin 3.5 Assessment and Plan (1) Small bowel obstruction: Status: Acute (2) JONES (acute kidney injury): Status: Acute Plan This is an 81-year-old female with bilateral unspecified mononeuropathy of lower extremity, chronic kidney disease who presents to the emergency department for evaluation of right sided abdominal pain. small-bowel obstruction s/p laparotomy lysis of adhesionsand NGT placement surgery following aspirin on hold JONES on CKD4 creatinine has continued to trend up reportedly episode of hypotension in OR continue IVF nephrology consult follow UOP acute respiratory failure with hypoxia remained intubated following surgery likely r/t restrictive lung dz/kyphoscoliosis and h/o COPD wean oxygen as tolerated IS COPD no acute exacerbation continue scheduled breathing treatments UTI initially treated with IV ceftriaxone urine cultures growing mixed bacterial yeison characteristic of urogenital contamination Neuropathy pregabalin stopped in ICU. Will continue to hold for now due to increasing renal function Hypomagnesemia Secondary to GI losses Replaced and improved Chronic macrocytic anemia B12 306, folate 12.2 H/H stable chronic back pain h/o spinal stenosis pain control Mood Continue sertraline mild transaminitis hold atorvastatin trend LFTs Code status: Full code DVT prophylaxis:? Mechanical compression boots Attending Dr. daniel Continue hospitalization for treatment of small-bowel obstruction Quality Stroke Does the patient have a stroke diagnosis?: No VTE Prior VTE?: No VTE Risk Level:: Medical - moderate - high VTE Device Contraindication: N/A - Device Ordered VTE Drug Contraindication: Treatment Not Indicated
[2022-02-05] MEDS: Morphine Sulfate 4 MG/ML CARTRIDGE 3 MG IVPUSH (14:37)
[2022-02-06] VITALS (11 sets, daily range): BP systolic 108–145; BP diastolic 58–66; PULSE 77–92; RESP 14–20; TEMP 36–36.9; O2SAT 94–97
[2022-02-06] MEDS: 0.9 % Sodium Chloride 1,000 ML 75 ML IVCONT ×2 (01:03→14:25)
[2022-02-06] MEDS: Piperacillin Sodium/Tazobactam 2.25 GM in 0.9 % Sodium Chloride 50 ML IV ×3 (03:22→20:03)
[2022-02-06] MEDS: Morphine Sulfate 4 MG/ML CARTRIDGE 3 MG IVPUSH ×3 (06:05→17:48)
[2022-02-06 06:12] LABS: MANUAL DIFF FLAG NO
[2022-02-06 06:17] LABS: Hematocrit 29.8 % (37.0-47.0); Hemoglobin 9.2 g/dl (12.0-16.0); Mean Corpuscular HGB Conc 30.9 g/dl (31.0-35.0); Mean Corpuscular Hemoglobin 32.4 pg (27.0-33.0); Mean Corpuscular Volume 104.9 fL (80.0-98.0); Platelet Count 271 X10*3/uL (160-400); Red Blood Count 2.84 X10*6/uL (4.20-5.50); Red Cell Distribution Width 14.9 % (11.0-16.0); White Blood Count 7.5 X10*3/uL (4.8-10.8)
[2022-02-06 06:19] LABS: Basophils Percent Auto 0.4 % (0-2); Eosinophils Absolute Auto 0.1 X10*3/uL (0.0-0.4); Eosinophils Percent Auto 1.1 % (0-4); Hemoglobin 9.1 g/dl (12.0-16.0); Imm Gran Abs Auto 0.22 X10*3/uL (0.00-0.03); Lymphocytes Absolute Auto 0.6 X10*3/uL (1.2-4.9); Lymphocytes Percent Auto 8.4 % (20-40); Mean Corpuscular HGB Conc 30.3 g/dl (31.0-35.0); Mean Corpuscular Volume 105.6 fL (80.0-98.0); Mean Platelet Volume 9.7 fL (9.4-12.3); Monocytes Absolute Auto 0.7 X10*3/uL (0.1-1.2); Monocytes Percent Auto 9.9 % (2-11); Neutrophils Absolute Auto 5.7 x10*3/uL (2.0-8.3); Neutrophils Percent Auto 77.2 % (45-73); Platelet Count 273 X10*3/uL (160-400); Red Blood Count 2.84 X10*6/uL (4.20-5.50); Red Cell Distribution Width 14.7 % (11.0-16.0); White Blood Count 7.4 X10*3/uL (4.8-10.8)
[2022-02-06 06:20] LABS: Venous Blood Gas Refer to POC result
[2022-02-06 06:21] LABS: VBG Base Excess -12.9 mmol/L; VBG HCO3 14 mmol/L (22-26); VBG pCO2 40 mmHg; VBG pH 7.16 (7.32-7.43); VBG pO2 43 mmHg
[2022-02-06 07:04] LABS: Alanine Aminotransferase 38 U/L (0-31); Albumin Level 3.3 g/dL (3.5-5.0); Alkaline Phosphatase 58 U/L (39-117); Anion Gap 22 (12-20); Anion Gap 23 (12-20); Aspartate Amino Transferase 61 U/L (5-31); Bilirubin Total 0.3 mg/dL (0.0-1.0); Blood Urea Nitrogen 59 mg/dL (9-16); Calcium 8.6 mg/dL (8.4-10.2); Calcium 8.7 mg/dL (8.4-10.2); Carbon Dioxide 14 mmol/L (22-29); Carbon Dioxide 16 mmol/L (22-29); Chloride 109 mmol/L (96-108); Creatinine Clr Calc Pharmacy 18.8; Estimated Glomerular Filt Rate 24; Glucose Random 72 mg/dL (60-115); Magnesium 1.9 mg/dL (1.6-2.6); Phosphorus 6.3 mg/dL (2.7-4.5); Potassium 4.1 mmol/L (3.3-5.1); Potassium 4.4 mmol/L (3.3-5.1); Sodium 142 mmol/L (135-145); Sodium 143 mmol/L (135-145); Total Protein 5.7 g/dL (6.5-8.0)
[2022-02-06] MEDS: Albuterol/Iprat 2.5/0.5MG 3 ML AMPUL.NEB INHALE ×3 (08:06→20:07)
--- NOTE | 2022-02-06 09:22 | P.PNGS_ITS ---
Subjective Subjective Date of Service: 02/06/22 Interval history: Had flatus and BMs Feels well Hungry and wants to eat Physical Exam Vital Signs: Vital Signs: Last Vital Signs Temp 97.2 F 02/06/22 07:55 Pulse 91 02/06/22 08:07 Resp 18 02/06/22 08:07 BP 130/61 02/06/22 07:55 Pulse Ox 94 02/06/22 07:55 O2 Del Method 02/06/22 07:55 O2 Flow Rate 2 02/06/22 07:55 FiO2 35 02/04/22 11:22 BMI result Body Mass Index 27.5 Const: General: comfortable and no acute distress Resp: Effort & Inspection: normal respiratory effort Cardio: Rate: regular rate GI: Other: Soft, nondistended, incisions clean and dry no guarding rebound Objective Data Active Medications Acetaminophen (Acetaminophen Supp 650 Mg Supp.Rect) 650 mg [place] Q6H PRN PRN Reason: Pain, Mild (Pain Scale 1-3) Acetaminophen (Acetaminophen 325 Mg Tablet) 650 mg PO Q6H PRN PRN Reason: Pain, Mild (Pain Scale 1-3) Last Admin: 02/03/22 07:46 Dose: 650 mg Documented By: NEENA Albuterol/Ipratropium (Albuterol/Iprat 2.5/0.5mg 3 Ml Ampul.Neb) 3 ml INHALE RQ4H WHILE AWAKE ON [facility] OF [facility] Last Admin: 02/06/22 08:06 Dose: 3 ml Documented By: JERSON Sodium Chloride (Ns) 1,000 mls @ 100 mls/hr IVCONT .Q10H [facility] OF [facility] Last Admin: 02/06/22 04:41 Dose: Not Given Documented By: SHRAVAN Non-Admin Reason: IV Running Piperacillin Sod/Tazobactam (Sod 2.25 gm/ Sodium Chloride) 50 mls @ 100 mls/hr IV Q8H [facility] Last Infusion: 02/06/22 04:04 Dose: 100 mls/hr Documented By: SHRAVAN Lidocaine (Lidocaine 4 % Patch Adh..Patch) 1 patch TRANSDERMA DAILY [facility]; Protocol Last Admin: 02/05/22 07:35 Dose: 1 patch Documented By: MANUEL Morphine Sulfate (Morphine Sulfate 4 Mg/Ml Cartridge) 3 mg IVPUSH Q4H PRN; Protocol PRN Reason: Pain, Severe (Pain Scale 7-10) Last Admin: 02/06/22 06:05 Dose: 3 mg Documented By: SHRAVAN Ondansetron HCl (Ondansetron Hcl 4 Mg/2 Ml Vial) 4 mg IVPUSH Q8H PRN PRN Reason: Nausea and Vomiting Last Admin: 02/03/22 07:45 Dose: 4 mg Documented By: NEENA Sertraline HCl (Sertraline Hcl 100 Mg Tablet) 100 mg PO DAILY [facility] Sodium Chloride (0.9 % Sodium Chloride Flush 3 Ml Syringe) 3 ml IVFLUSH QSHIFT [facility] Last Admin: 02/05/22 21:50 Dose: Not Given Documented By: SHRAVAN Non-Admin Reason: IV Running Labs CBC & Chem 7: 02/06/22 06:05 02/06/22 06:05 Labs: Laboratory Results - last 24 hr 02/06/22 02/06/22 02/06/22 06:05 06:05 06:05 MCV 104.9 H 105.6 H MCH 32.4 32.0 MCHC 30.9 L 30.3 L RDW 14.9 14.7 Plt Count 271 D 273 MPV 10.0 9.7 Immature Gran % (Auto) 3.0 H Neut % (Auto) 77.2 H Lymph % (Auto) 8.4 L [place] % (Auto) 9.9 Eos % (Auto) 1.1 Baso % (Auto) 0.4 Lymph # (Auto) 0.6 L [place] # (Auto) 0.7 Eos # (Auto) 0.1 Baso # (Auto) 0.0 Abs Immat Gran (auto) 0.22 H Absolute Neuts (auto) 5.7 Absolute Nucleated RBC 0.000 0.000 Nucleated RBC % (auto) 0.0 0.0 VBG pH VBG pCO2 VBG pO2 VBG HCO3 VBG O2 Saturation VBG Base Excess Anion Gap 22 H Estim Creat Clear Calc 18.8 Estimated GFR 24 Random Glucose 72 Calcium 8.7 D Phosphorus Magnesium Total Bilirubin AST ALT Alkaline Phosphatase Total Protein Albumin 02/06/22 02/06/22 06:05 06:10 MCV MCH MCHC RDW Plt Count MPV Immature Gran % (Auto) Neut % (Auto) Lymph % (Auto) [place] % (Auto) Eos % (Auto) Baso % (Auto) Lymph # (Auto) [place] # (Auto) Eos # (Auto) Baso # (Auto) Abs Immat Gran (auto) Absolute Neuts (auto) Absolute Nucleated RBC Nucleated RBC % (auto) VBG pH 7.16 L* VBG pCO2 40 VBG pO2 43 VBG HCO3 14 L VBG O2 Saturation 65.0 VBG Base Excess -12.9 Anion Gap 23 H Estim Creat Clear Calc 18.8 Estimated GFR 24 Random Glucose 72 Calcium 8.6 Phosphorus 6.3 H Magnesium 1.9 Total Bilirubin 0.3 AST 61 H ALT 38 H Alkaline Phosphatase 58 Total Protein 5.7 L Albumin 3.3 L Procedures Date of Service Date of Service: 02/06/22 Progress Note: A&P Assessment and plan (1) Small bowel obstruction: Status: Acute Assessment and Plan: Status post lysis of adhesions Passing flatus and BMs NG tube removed Out of bed to chair Start physical therapy tomorrow Looks well Will start on sips of clear liquids Creatinine better Hospitalist following Time Spent With Patient Time: Total time spent is greater than 50% in coordination of care (as documented) at patient's floor/unit and/or counseling patient: Quality Stroke Does the patient have a stroke diagnosis?: No VTE Prior VTE?: No VTE Risk Level:: Medical - moderate - high VTE Device Contraindication: N/A - Device Ordered VTE Drug Contraindication: Treatment Not Indicated
[2022-02-06] MEDS: 0.9 % Sodium Chloride Flush 3 ML SYRINGE IVFLUSH (10:09)
[2022-02-06] MEDS: Sertraline HCL 100 MG TABLET PO (10:09)
[2022-02-06] MEDS: Lidocaine 4 % Patch ADH..PATCH 1 PATCH TRANSDERMA (10:10)
--- NOTE | 2022-02-06 10:16 | HO.PM.IMPN ---
Subjective Subjective Date of Service: 02/06/22 Interval History: seen and examined this morning follow up for SBO.pt s/p laparotomy on 02/03 and remained intubated and went to ICU overnight. She was extubated 02/04 and downgraded from the ICU overnight She has no pain this morning, feels thirsty, NGT removed Review of Systems no n/v no abd pain Physical Exam Vital Signs: Vital Signs: Last Vital Signs Temp 97.2 F 02/06/22 07:55 Pulse 91 02/06/22 08:07 Resp 18 02/06/22 08:07 BP 130/61 02/06/22 07:55 Pulse Ox 94 02/06/22 07:55 O2 Del Method 02/06/22 07:55 O2 Flow Rate 2 02/06/22 07:55 FiO2 35 02/04/22 11:22 BMI result Body Mass Index 27.5 Objective Data Active Medications Acetaminophen (Acetaminophen Supp 650 Mg Supp.Rect) 650 mg [place] Q6H PRN PRN Reason: Pain, Mild (Pain Scale 1-3) Acetaminophen (Acetaminophen 325 Mg Tablet) 650 mg PO Q6H PRN PRN Reason: Pain, Mild (Pain Scale 1-3) Last Admin: 02/03/22 07:46 Dose: 650 mg Documented By: NEENA Albuterol/Ipratropium (Albuterol/Iprat 2.5/0.5mg 3 Ml Ampul.Neb) 3 ml INHALE RQ4H WHILE AWAKE [facility] Last Admin: 02/06/22 08:06 Dose: 3 ml Documented By: JERSON Sodium Chloride (Ns) 1,000 mls @ 100 mls/hr IVCONT .Q10H [facility] Last Admin: 02/06/22 04:41 Dose: Not Given Documented By: SHRAVAN Non-Admin Reason: IV Running Piperacillin Sod/Tazobactam (Sod 2.25 gm/ Sodium Chloride) 50 mls @ 100 mls/hr IV Q8H [facility] [place] Last Infusion: 02/06/22 04:04 Dose: 100 mls/hr Documented By: SHRAVAN Lidocaine (Lidocaine 4 % Patch Adh..Patch) 1 patch TRANSDERMA DAILY [facility] [place]; Protocol Last Admin: 02/06/22 10:10 Dose: 1 patch Documented By: HO.[email or web address] Morphine Sulfate (Morphine Sulfate 4 Mg/Ml Cartridge) 3 mg IVPUSH Q4H PRN; Protocol PRN Reason: Pain, Severe (Pain Scale 7-10) Last Admin: 02/06/22 06:05 Dose: 3 mg Documented By: SHRAVAN Ondansetron HCl (Ondansetron Hcl 4 Mg/2 Ml Vial) 4 mg IVPUSH Q8H PRN PRN Reason: Nausea and Vomiting Last Admin: 02/03/22 07:45 Dose: 4 mg Documented By: NEENA Sertraline HCl (Sertraline Hcl 100 Mg Tablet) 100 mg PO DAILY [facility] Last Admin: 02/06/22 10:09 Dose: 100 mg Documented By: MANUEL Sodium Chloride (0.9 % Sodium Chloride Flush 3 Ml Syringe) 3 ml IVFLUSH QSHIFT [facility] Last Admin: 02/06/22 10:09 Dose: 3 ml Documented By: MANUEL Labs CBC & Chem 7: 02/06/22 06:05 02/06/22 06:05 Labs: Laboratory Results - last 24 hr 02/06/22 02/06/22 02/06/22 06:05 06:05 06:05 MCV 104.9 H 105.6 H MCH 32.4 32.0 MCHC 30.9 L 30.3 L RDW 14.9 14.7 Plt Count 271 D 273 MPV 10.0 9.7 Immature Gran % (Auto) 3.0 H Neut % (Auto) 77.2 H Lymph % (Auto) 8.[address] [place] % (Auto) 9.9 Eos % (Auto) 1.1 Baso % (Auto) 0.4 Lymph # (Auto) 0.[address] [facility] [facility] # (Auto) 0.7 Eos # (Auto) 0.1 Baso # (Auto) 0.0 Abs Immat Gran (auto) 0.22 H Absolute Neuts (auto) 5.7 Absolute Nucleated RBC 0.000 0.000 Nucleated RBC % (auto) 0.0 0.0 VBG pH VBG pCO2 VBG pO2 VBG HCO3 VBG O2 Saturation VBG Base Excess Anion Gap 22 H Estim Creat Clear Calc 18.8 Estimated GFR 24 Random Glucose 72 Calcium 8.7 D Phosphorus Magnesium Total Bilirubin AST ALT Alkaline Phosphatase Total Protein Albumin 09/25/22 09/25/22 06:05 06:10 MCV MCH MCHC RDW Plt Count MPV Immature Gran % (Auto) Neut % (Auto) Lymph % (Auto) [facility] % (Auto) Eos % (Auto) Baso % (Auto) Lymph # (Auto) [facility] # (Auto) Eos # (Auto) Baso # (Auto) Abs Immat Gran (auto) Absolute Neuts (auto) Absolute Nucleated RBC Nucleated RBC % (auto) VBG pH 7.16 L* VBG pCO2 40 VBG pO2 43 VBG HCO3 14 L VBG O2 Saturation 65.0 VBG Base Excess -12.9 Anion Gap 23 H Estim Creat Clear Calc 18.8 Estimated GFR 24 Random Glucose 72 Calcium 8.6 Phosphorus 6.3 H Magnesium 1.9 Total Bilirubin 0.3 AST 61 H ALT 38 H Alkaline Phosphatase 58 Total Protein 5.7 L Albumin 3.3 L Assessment and Plan (1) Small bowel obstruction: Status: Acute (2) JONES (acute kidney injury): Status: Acute Plan This is an 81-year-old female with bilateral unspecified mononeuropathy of lower extremity, chronic kidney disease who presents to the emergency department for evaluation of right sided abdominal pain. small-bowel obstruction s/p laparotomy lysis o surgery following NGT removed this am next step in diet per surgery aspirin on hold JONES on CKD4 Creat stable around 2 reportedly episode of hypotension in OR continue IVF nephrology following follow UOP acute respiratory failure with hypoxia remained intubated following surgery likely r/t restrictive lung dz/kyphoscoliosis and h/o COPD wean oxygen as tolerated IS COPD no acute exacerbation continue scheduled breathing treatments UTI initially treated with IV ceftriaxone urine cultures growing mixed bacterial yeison characteristic of urogenital contamination Neuropathy pregabalin stopped in ICU. Will continue to hold for now due to increasing renal function Hypomagnesemia Secondary to GI losses Replaced and improved Chronic macrocytic anemia B12 306, folate 12.2 H/H stable chronic back pain h/o spinal stenosis pain control Mood Continue sertraline mild transaminitis hold atorvastatin trend LFTs Code status: Full code DVT prophylaxis:? Mechanical compression boots Attending Dr. daniel Continue hospitalization for treatment of small-bowel obstruction and post op care Quality Stroke Does the patient have a stroke diagnosis?: No VTE Prior VTE?: No VTE Risk Level:: Medical - moderate - high VTE Device Contraindication: N/A - Device Ordered VTE Drug Contraindication: Treatment Not Indicated
--- NOTE | 2022-02-06 17:26 | PC.NURSE ---
jurado catheter succesfully removed at 15:30 per MD order. No discomfort or complaints during or after removal. Pt expected to urinate by 21:30 will continue to monitor.
--- NOTE | 2022-02-06 20:25 | P.PNNP_ITS ---
Subjective Subjective Date of Service: 02/06/22 Interval history: Chart Reviewed. Events noted. SBO s/p laparotomy on 02/03 Physical Exam Vital Signs: Vital Signs: Last Vital Signs Temp 96.8 F 02/06/22 19:31 Pulse 85 02/06/22 20:10 Resp 18 02/06/22 20:10 BP 145/66 H 02/06/22 19:31 Pulse Ox 97 02/06/22 19:31 O2 Del Method 02/06/22 19:31 O2 Flow Rate 3 02/06/22 19:31 FiO2 35 02/04/22 11:22 BMI result Body Mass Index 27.5 Const: General: cooperative and no acute distress HEENT: Head: Yes normocephalic Resp: Effort & Inspection: normal respiratory effort Auscultation: clear to auscultation bilaterally Cardio: Jugular venous distension: no JVD Rate: regular rate Rhythm: regular rhythm Heart sounds: S1 normal heart sound present and S2 normal heart sound present GI: Auscultation: normal bowel sounds Skin: General skin exam: no rashes or lesions noted Neuro: General: moves all extremities Extrem: General: Yes no clubbing, cyanosis or edema Objective Data Labs CBC & Chem 7: 02/06/22 06:05 02/06/22 06:05 Labs: Laboratory Results - last 24 hr 02/06/22 02/06/22 02/06/22 06:05 06:05 06:05 WBC 7.5 7.4 RBC 2.84 L 2.84 L Hgb 9.2 L 9.1 L Hct 29.8 L 30.0 L MCV 104.9 H 105.6 H MCH 32.4 32.0 MCHC 30.9 L 30.3 L RDW 14.9 14.7 Plt Count 271 D 273 MPV 10.0 9.7 Immature Gran % (Auto) 3.0 H Neut % (Auto) 77.2 H Lymph % (Auto) 8.4 L [place] % (Auto) 9.9 Eos % (Auto) 1.1 Baso % (Auto) 0.4 Lymph # (Auto) 0.6 L [place] # (Auto) 0.7 Eos # (Auto) 0.1 Baso # (Auto) 0.0 Abs Immat Gran (auto) 0.22 H Absolute Neuts (auto) 5.7 Absolute Nucleated RBC 0.000 0.000 Nucleated RBC % (auto) 0.0 0.0 VBG pH VBG pCO2 VBG pO2 VBG HCO3 VBG O2 Saturation VBG Base Excess Sodium 143 Potassium 4.1 Chloride 109 H Carbon Dioxide 16 L Anion Gap 22 H BUN 59 H Creatinine 1.99 H Estim Creat Clear Calc 18.8 Estimated GFR 24 Random Glucose 72 Calcium 8.7 D Phosphorus Magnesium Total Bilirubin AST ALT Alkaline Phosphatase Total Protein Albumin 02/06/22 02/06/22 06:05 06:10 WBC RBC Hgb Hct MCV MCH MCHC RDW Plt Count MPV Immature Gran % (Auto) Neut % (Auto) Lymph % (Auto) [place] % (Auto) Eos % (Auto) Baso % (Auto) Lymph # (Auto) [place] # (Auto) Eos # (Auto) Baso # (Auto) Abs Immat Gran (auto) Absolute Neuts (auto) Absolute Nucleated RBC Nucleated RBC % (auto) VBG pH 7.16 L* VBG pCO2 40 VBG pO2 43 VBG HCO3 14 L VBG O2 Saturation 65.0 VBG Base Excess -12.9 Sodium 142 Potassium 4.4 Chloride 109 H Carbon Dioxide 14 L Anion Gap 23 H BUN 59 H Creatinine 1.99 H Estim Creat Clear Calc 18.8 Estimated GFR 24 Random Glucose 72 Calcium 8.6 Phosphorus 6.3 H Magnesium 1.9 Total Bilirubin 0.3 AST 61 H ALT 38 H Alkaline Phosphatase 58 Total Protein 5.7 L Albumin 3.3 L Microbiology Microbiology Results: Microbiology 02/01/22 21:06 Blood - Venous Blood Culture - Preliminary No growth after 48 hours. 02/01/22 19:26 Blood - Venous Blood Culture - Preliminary No growth after 48 hours. 02/02/22 00:00 Urine Catheterized - Straight Catheter Urine Culture - Final Procedures Date of Service Date of Service: 02/06/22 Assessment & Plan Assessment and plan (1) JONES (acute kidney injury): Status: Acute Assessment and Plan: JONES on CKD4 Creat slightly better. JONES from hypotensive episode(s). Agree with gentle hydration with isotonic ivf's. Provide NahCO3 tablets 650 tid. hyperphosphatemia with jones. Cont sevelamer 800 mg tid. hold nephrotoxic agents. monitor uop with bladder scan prn oliguria/anuria Low K diet 10 gm lokelma prn K>5.0 NO indication for [employer] at this time. (2) Chronic kidney disease: Status: Acute Time Spent With Patient Time: Total time spent is greater than 50% in coordination of care (as documented) at patient's floor/unit and/or counseling patient: Progress Note: Quality Stroke Does the patient have a stroke diagnosis?: No
[2022-02-07] VITALS (9 sets, daily range): BP systolic 99–154; BP diastolic 62–79; PULSE 80–89; RESP 16–19; TEMP 35.9–37.1; O2SAT 92–99
[2022-02-07] MEDS: Morphine Sulfate 4 MG/ML CARTRIDGE 3 MG IVPUSH ×3 (00:06→20:35)
[2022-02-07] MEDS: Piperacillin Sodium/Tazobactam 2.25 GM in 0.9 % Sodium Chloride 50 ML IV ×3 (04:39→18:38)
[2022-02-07 06:41] LABS: MANUAL DIFF FLAG NO
[2022-02-07 06:46] LABS: Basophils Percent Auto 0.4 % (0-2); Eosinophils Absolute Auto 0.2 X10*3/uL (0.0-0.4); Eosinophils Percent Auto 2.9 % (0-4); Hematocrit 26.4 % (37.0-47.0); Hemoglobin 8.1 g/dl (12.0-16.0); Imm Gran Abs Auto 0.35 X10*3/uL (0.00-0.03); Imm Gran Pct Auto 4.8 % (0.0-0.4); Lymphocytes Absolute Auto 0.7 X10*3/uL (1.2-4.9); Lymphocytes Percent Auto 9.4 % (20-40); Mean Corpuscular HGB Conc 30.7 g/dl (31.0-35.0); Mean Corpuscular Hemoglobin 32.4 pg (27.0-33.0); Mean Corpuscular Volume 105.6 fL (80.0-98.0); Mean Platelet Volume 9.1 fL (9.4-12.3); Monocytes Absolute Auto 0.7 X10*3/uL (0.1-1.2); Monocytes Percent Auto 9.8 % (2-11); NRBC Pct Auto 0.3 /100WBC (0.0-0.2); Neutrophils Absolute Auto 5.3 x10*3/uL (2.0-8.3); Neutrophils Percent Auto 72.7 % (45-73); Platelet Count 248 X10*3/uL (160-400); Red Cell Distribution Width 14.9 % (11.0-16.0); White Blood Count 7.3 X10*3/uL (4.8-10.8)
[2022-02-07 06:52] LABS: VBG Base Excess -9.3 mmol/L; VBG HCO3 17 mmol/L (22-26); VBG pCO2 41 mmHg; VBG pH 7.23 (7.32-7.43); VBG pO2 63 mmHg
[2022-02-07 06:59] LABS: Venous Blood Gas Refer to POC result
[2022-02-07 07:14] LABS: Alanine Aminotransferase 33 U/L (0-31); Albumin Level 3.2 g/dL (3.5-5.0); Alkaline Phosphatase 53 U/L (39-117); Anion Gap 17 (12-20); Aspartate Amino Transferase 34 U/L (5-31); Bilirubin Total 0.3 mg/dL (0.0-1.0); Blood Urea Nitrogen 53 mg/dL (9-16); Calcium 8.6 mg/dL (8.4-10.2); Carbon Dioxide 19 mmol/L (22-29); Chloride 111 mmol/L (96-108); Creatinine Clr Calc Pharmacy 22.4; Estimated Glomerular Filt Rate 30; Glucose Random 112 mg/dL (60-115); Magnesium 1.8 mg/dL (1.6-2.6); Phosphorus 4.4 mg/dL (2.7-4.5); Potassium 3.9 mmol/L (3.3-5.1); Sodium 143 mmol/L (135-145); Total Protein 5.2 g/dL (6.5-8.0)
--- NOTE | 2022-02-07 07:17 | PM.PNGS ---
Subjective Subjective Date of Service: 02/07/22 Patient reports: still having pain, tolerating liquids well, flatus and bowel movement Interval history: The patient is tired but speaking in full sentences. She notes that she had a bowel movement yesterday, & her NG was removed. She denies n/v, chest pain or trouble breathing but notes that she is unable to get herself water or liquids due to the positioning of them in the room. She is also wheelchair bound predominantly and her Yadav was removed. She denies any localizing neurologic symptoms but reports her back pain and abdominal incisional pain or poorly controlled. She denies any nausea or vomiting and had me get her some water and position her bedside trace of that she could continue to hydrate by mouth. Physical Exam Vital Signs: Vital Signs: Last Vital Signs Temp 98.7 F 02/07/22 03:21 Pulse 81 02/07/22 03:21 Resp 19 02/07/22 03:21 BP 122/79 02/07/22 03:21 Pulse Ox 98 02/07/22 03:21 O2 Del Method 02/07/22 03:21 O2 Flow Rate 2 02/07/22 03:21 FiO2 35 02/04/22 11:22 BMI result Body Mass Index 27.5 She appears tired but is nontoxic Her abdominal incision is healing well, expected ecchymoses are present but no fluid is draining and there is no erythema She has normoactive bowel sounds Lower extremities are free of any edema or palpable cords Objective Data Active Medications Acetaminophen (Acetaminophen Supp 650 Mg Supp.Rect) 650 mg [place] Q6H PRN PRN Reason: Pain, Mild (Pain Scale 1-3) Acetaminophen (Acetaminophen 325 Mg Tablet) 650 mg PO Q6H PRN PRN Reason: Pain, Mild (Pain Scale 1-3) Last Admin: 02/03/22 07:46 Dose: 650 mg Documented By: NEENA Albuterol/Ipratropium (Albuterol/Iprat 2.5/0.5mg 3 Ml Ampul.Neb) 3 ml INHALE RQ4H WHILE AWAKE [facility] Last Admin: 02/06/22 20:07 Dose: 3 ml Documented By: ABHILASH Piperacillin Sod/Tazobactam (Sod 2.25 gm/ Sodium Chloride) 50 mls @ 100 mls/hr IV Q8H [facility] Last Infusion: 02/07/22 05:10 Dose: 0 mls/hr Documented By: KANE Lidocaine (Lidocaine 4 % Patch Adh..Patch) 1 patch TRANSDERMA DAILY [facility]; Protocol Last Admin: 02/06/22 10:10 Dose: 1 patch Documented By: MANUEL Morphine Sulfate (Morphine Sulfate 4 Mg/Ml Cartridge) 3 mg IVPUSH Q4H PRN; Protocol PRN Reason: Pain, Severe (Pain Scale 7-10) Last Admin: 02/07/22 04:39 Dose: 3 mg Documented By: KANE Ondansetron HCl (Ondansetron Hcl 4 Mg/2 Ml Vial) 4 mg IVPUSH Q8H PRN PRN Reason: Nausea and Vomiting Last Admin: 02/03/22 07:45 Dose: 4 mg Documented By: NEENA Sertraline HCl (Sertraline Hcl 100 Mg Tablet) 100 mg PO DAILY [facility] Last Admin: 02/06/22 10:09 Dose: 100 mg Documented By: MANUEL Sodium Chloride (0.9 % Sodium Chloride Flush 3 Ml Syringe) 3 ml IVFLUSH QSHIFT [facility] Last Admin: 02/07/22 00:55 Dose: Not Given Documented By: KANE Non-Admin Reason: IV Running Labs CBC & Chem 7: 02/07/22 06:36 02/07/22 06:36 Labs: Laboratory Results - last 24 hr 02/07/22 02/07/22 02/07/22 06:36 06:36 06:39 MCV 105.6 H MCH 32.4 MCHC 30.7 L RDW 14.9 Plt Count 248 MPV 9.1 L Immature Gran % (Auto) 4.8 H Neut % (Auto) 72.7 Lymph % (Auto) 9.4 L [place] % (Auto) 9.8 Eos % (Auto) 2.9 Baso % (Auto) 0.4 Lymph # (Auto) 0.7 L [place] # (Auto) 0.7 Eos # (Auto) 0.2 Baso # (Auto) 0.0 Abs Immat Gran (auto) 0.35 H Absolute Neuts (auto) 5.3 Absolute Nucleated RBC 0.020 H Nucleated RBC % (auto) 0.3 H VBG pH 7.23 L VBG pCO2 41 VBG pO2 63 VBG HCO3 17 L VBG O2 Saturation 88.0 VBG Base Excess -9.3 Anion Gap 17 Estim Creat Clear Calc 22.4 Estimated GFR 30 Random Glucose 112 Calcium 8.6 Phosphorus 4.4 Magnesium 1.8 Total Bilirubin 0.3 AST 34 H D ALT 33 H Alkaline Phosphatase 53 Total Protein 5.2 L Albumin 3.2 L Microbiology Microbiology Results: Microbiology 02/01/22 21:06 Blood Culture - Final Blood - Venous No growth after 5 days. 02/01/22 19:26 Blood Culture - Final Blood - Venous No growth after 5 days. Procedures Date of Service Date of Service: 02/07/22 Progress Note: A&P Assessment and plan (1) Hiatal hernia: Status: Acute (2) Small bowel obstruction: Status: Acute (3) Chronic kidney disease: Status: Acute (4) H/O vaginal hysterectomy: Status: Acute (5) Frailty syndrome in geriatric patient: Status: Acute (6) Malnutrition: Status: Acute Plan Consult PT; consult nutrition to order protein supplements as needed Encourage PO; can advanced diet after we are sure she is tolerating clear liquids today. Please work with patient to be sure that a nursing call ramirez and needed p.o. fluids are readily accessible to the patient. Trend labs. Check pre-albumin I spoke with the pt's daughter Sathish, at [phone]; no answer. Message left.? Time Spent With Patient Time: Total time spent is greater than 50% in coordination of care (as documented) at patient's floor/unit and/or counseling patient: Quality Stroke Does the patient have a stroke diagnosis?: No VTE Prior VTE?: No VTE Risk Level:: Medical - moderate - high VTE Device Contraindication: N/A - Device Ordered VTE Drug Contraindication: Treatment Not Indicated
[2022-02-07] MEDS: 0.9 % Sodium Chloride Flush 3 ML SYRINGE IVFLUSH ×3 (07:44→20:34)
[2022-02-07] MEDS: Lidocaine 4 % Patch ADH..PATCH 1 PATCH TRANSDERMA (07:44)
[2022-02-07] MEDS: Sertraline HCL 100 MG TABLET PO (07:45)
[2022-02-07] MEDS: Albuterol/Iprat 2.5/0.5MG 3 ML AMPUL.NEB INHALE ×3 (08:46→19:11)
--- NOTE | 2022-02-07 09:27 | HO.PM.IMPN ---
Subjective Subjective Date of Service: 02/07/22 Interval History: Seen and examined this morning follow up for SBO.pt s/p laparotomy on 02/03 and remained intubated and went to ICU overnight. She was extubated 02/04 and downgraded from the ICU overnight She has some vague abdominal discomfort, as far I know she is tolerating liquid diet Review of Systems no n/v no abd pain Physical Exam Vital Signs: Vital Signs: Last Vital Signs Temp 97.9 F 02/07/22 07:46 Pulse 89 02/07/22 08:47 Resp 16 02/07/22 08:47 BP 154/77 H 02/07/22 07:46 Pulse Ox 98 02/07/22 07:46 O2 Del Method 02/07/22 07:46 O2 Flow Rate 3 02/07/22 07:46 FiO2 35 02/04/22 11:22 BMI result Body Mass Index 27.5 Objective Data Active Medications Acetaminophen (Acetaminophen Supp 650 Mg Supp.Rect) 650 mg [place] Q6H PRN PRN Reason: Pain, Mild (Pain Scale 1-3) Acetaminophen (Acetaminophen 325 Mg Tablet) 650 mg PO Q6H PRN PRN Reason: Pain, Mild (Pain Scale 1-3) Last Admin: 02/03/22 07:46 Dose: 650 mg Documented By: NEENA Acetaminophen (Acetaminophen 325 Mg Tablet) 650 mg PO Q4H PRN PRN Reason: Pain, Mild (Pain Scale 1-3) Albuterol/Ipratropium (Albuterol/Iprat 2.5/0.5mg 3 Ml Ampul.Neb) 3 ml INHALE RQ4H WHILE AWAKE [facility] Last Admin: 02/07/22 08:46 Dose: 3 ml Documented By: ISIAH Docusate Sodium (Docusate Sodium 100 Mg Capsule) 100 mg PO BID [facility] Piperacillin Sod/Tazobactam (Sod 2.25 gm/ Sodium Chloride) 50 mls @ 100 mls/hr IV Q8H [facility] Last Infusion: 02/07/22 05:10 Dose: 0 mls/hr Documented By: KANE Lidocaine (Lidocaine 4 % Patch Adh..Patch) 1 patch TRANSDERMA DAILY [facility]; Protocol Last Admin: 02/07/22 07:44 Dose: 1 patch Documented By: NEENA Morphine Sulfate (Morphine Sulfate 4 Mg/Ml Cartridge) 3 mg IVPUSH Q4H PRN; Protocol PRN Reason: Pain, Severe (Pain Scale 7-10) Last Admin: 02/07/22 04:39 Dose: 3 mg Documented By: KANE Ondansetron HCl (Ondansetron Hcl 4 Mg/2 Ml Vial) 4 mg IVPUSH Q8H PRN PRN Reason: Nausea and Vomiting Last Admin: 02/03/22 07:45 Dose: 4 mg Documented By: NEENA Oxycodone HCl (Oxycodone Hcl Immed Release 5 Mg Tablet) 5 mg PO Q4H PRN PRN Reason: Pain, Moderate (Pain Scale 4-6 Sertraline HCl (Sertraline Hcl 100 Mg Tablet) 100 mg PO DAILY [facility] Last Admin: 02/07/22 07:45 Dose: 100 mg Documented By: NEENA Sodium Chloride (0.9 % Sodium Chloride Flush 3 Ml Syringe) 3 ml IVFLUSH QSHIFT [facility] Last Admin: 02/07/22 07:44 Dose: 3 ml Documented By: NEENA Labs CBC & Chem 7: 02/07/22 06:36 02/07/22 06:36 Labs: Laboratory Results - last 24 hr 02/07/22 02/07/22 02/07/22 06:36 06:36 06:39 MCV 105.6 H MCH 32.4 MCHC 30.7 L RDW 14.9 Plt Count 248 MPV 9.1 L Immature Gran % (Auto) 4.8 H Neut % (Auto) 72.7 Lymph % (Auto) 9.4 L [place] % (Auto) 9.8 Eos % (Auto) 2.9 Baso % (Auto) 0.4 Lymph # (Auto) 0.7 L [place] # (Auto) 0.7 Eos # (Auto) 0.2 Baso # (Auto) 0.0 Abs Immat Gran (auto) 0.35 H Absolute Neuts (auto) 5.3 Absolute Nucleated RBC 0.020 H Nucleated RBC % (auto) 0.3 H VBG pH 7.23 L VBG pCO2 41 VBG pO2 63 VBG HCO3 17 L VBG O2 Saturation 88.0 VBG Base Excess -9.3 Anion Gap 17 Estim Creat Clear Calc 22.4 Estimated GFR 30 Random Glucose 112 Calcium 8.6 Phosphorus 4.4 Magnesium 1.8 Total Bilirubin 0.3 AST 34 H D ALT 33 H Alkaline Phosphatase 53 Total Protein 5.2 L Albumin 3.2 L Prealbumin 11.0 L Microbiology Microbiology Results: Microbiology 02/01/22 21:06 Blood Culture - Final Blood - Venous No growth after 5 days. 02/01/22 19:26 Blood Culture - Final Blood - Venous No growth after 5 days. Assessment and Plan (1) Small bowel obstruction: Status: Acute (2) JONES (acute kidney injury): Status: Acute Plan 81-year-old female with bilateral unspecified mononeuropathy of lower extremity, chronic kidney disease who presents to the emergency department for evaluation of right sided abdominal pain. small-bowel obstruction s/p laparotomy lysis o surgery following No longer has NGT next step in diet per surgery aspirin on hold JONES on CKD4 Creat stable around 2 reportedly episode of hypotension in OR continue IVF nephrology following follow UOP acute respiratory failure with hypoxia remained intubated following surgery likely r/t restrictive lung dz/kyphoscoliosis and h/o COPD wean oxygen as tolerated IS COPD no acute exacerbation continue scheduled breathing treatments UTI initially treated with IV ceftriaxone urine cultures growing mixed bacterial yeison characteristic of urogenital contamination Neuropathy pregabalin stopped in ICU. Will continue to hold for now due to increasing renal function Hypomagnesemia Secondary to GI losses Replaced and improved Chronic macrocytic anemia B12 306, folate 12.2 H/H stable chronic back pain h/o spinal stenosis pain control Mood Continue sertraline mild transaminitis hold atorvastatin trend LFTs Code status: Full code DVT prophylaxis:? Mechanical compression boots, givien sisginficant anemia post op Attending Dr. daniel Continue hospitalization for treatment of small-bowel obstruction and post op care PT eval Quality Stroke Does the patient have a stroke diagnosis?: No VTE Prior VTE?: No VTE Risk Level:: Medical - moderate - high VTE Device Contraindication: N/A - Device Ordered VTE Drug Contraindication: Treatment Not Indicated
--- NOTE | 2022-02-07 11:40 | MHC.CM.PN ---
Per ROUNDS discussion Patient is not yet medically cleared for dc (starting clear liquids today & needs PT eval); CM will follow.
[2022-02-07] MEDS: oxyCODONE HCl Immed Release 5 MG TABLET PO (12:27)
[2022-02-07] MEDS: Acetaminophen 325 MG TABLET 650 MG PO (12:28)
[2022-02-07] MEDS: Docusate Sodium 100 MG CAPSULE PO ×2 (12:28→20:33)
--- NOTE | 2022-02-07 15:22 | MHC.CLN ---
RE: CONSULT PT EXTUBATED 02/04 DIET ADVANCED TO CLEAR LIQUID PT RECEIVING ENSURE TID PER MD SUPPLEMENT PROVIDES 1050KCALS, 60G PROTEIN WITH 100% ACCEPTANCE CAN CHANGE TO ENSURE CLEAR IF UNABLE TO TOLERATE MONITOR PO INTAKE CLOSELY
--- NOTE | 2022-02-07 15:38 | P.PNNP_ITS ---
Subjective Subjective Date of Service: 02/07/22 Interval history: Seen and examined, events noted Physical Exam Vital Signs: Vital Signs: Last Vital Signs Temp 97.6 F 02/07/22 11:23 Pulse 85 02/07/22 12:20 Resp 16 02/07/22 12:20 BP 99/68 02/07/22 11:23 Pulse Ox 92 02/07/22 11:23 O2 Del Method 02/07/22 11:23 O2 Flow Rate 3 02/07/22 11:23 FiO2 35 02/04/22 11:22 BMI result Body Mass Index 27.5 Const: General: cooperative and no acute distress HEENT: Head: Yes normocephalic Resp: Effort & Inspection: normal respiratory effort Auscultation: clear to auscultation bilaterally Cardio: Jugular venous distension: no JVD Rate: regular rate Rhythm: regular rhythm Heart sounds: S1 normal heart sound present and S2 normal heart sound present GI: Auscultation: normal bowel sounds Skin: General skin exam: no rashes or lesions noted Neuro: General: moves all extremities Extrem: General: Yes no clubbing, cyanosis or edema Objective Data Labs CBC & Chem 7: 02/07/22 06:36 02/07/22 06:36 Labs: Laboratory Results - last 24 hr 02/07/22 02/07/22 02/07/22 06:36 06:36 06:39 WBC 7.3 RBC 2.50 L Hgb 8.1 L Hct 26.4 L MCV 105.6 H MCH 32.4 MCHC 30.7 L RDW 14.9 Plt Count 248 MPV 9.1 L Immature Gran % (Auto) 4.8 H Neut % (Auto) 72.7 Lymph % (Auto) 9.4 L [place] % (Auto) 9.8 Eos % (Auto) 2.9 Baso % (Auto) 0.4 Lymph # (Auto) 0.7 L [place] # (Auto) 0.7 Eos # (Auto) 0.2 Baso # (Auto) 0.0 Abs Immat Gran (auto) 0.35 H Absolute Neuts (auto) 5.3 Absolute Nucleated RBC 0.020 H Nucleated RBC % (auto) 0.3 H VBG pH 7.23 L VBG pCO2 41 VBG pO2 63 VBG HCO3 17 L VBG O2 Saturation 88.0 VBG Base Excess -9.3 Sodium 143 Potassium 3.9 Chloride 111 H Carbon Dioxide 19 L Anion Gap 17 BUN 53 H Creatinine 1.67 H Estim Creat Clear Calc 22.4 Estimated GFR 30 Random Glucose 112 Calcium 8.6 Phosphorus 4.4 Magnesium 1.8 Total Bilirubin 0.3 AST 34 H D ALT 33 H Alkaline Phosphatase 53 Total Protein 5.2 L Albumin 3.2 L Prealbumin 11.0 L Microbiology Microbiology Results: Microbiology 02/01/22 21:06 Blood - Venous Blood Culture - Final No growth after 5 days. 02/01/22 19:26 Blood - Venous Blood Culture - Final No growth after 5 days. 02/02/22 00:00 Urine Catheterized - Straight Catheter Urine Culture - Final Procedures Date of Service Date of Service: 02/07/22 Assessment & Plan Assessment and plan (1) JONES (acute kidney injury): Status: Acute Assessment and Plan: 1. JONES: resolving with peak SCr 2.2 and now at BSL 2. CKD 4: Scr 1.5-2.0; ? etiol 3. CKD management: will need outpt f/u re CKD management REC: cont to track UOP/renal func; avoid NToxins (2) Chronic kidney disease: Status: Acute Time Spent With Patient Time: Total time spent is greater than 50% in coordination of care (as documented) at patient's floor/unit and/or counseling patient: Progress Note: Quality Stroke Does the patient have a stroke diagnosis?: No
--- NOTE | 2022-02-07 15:44 | PC.NURSE ---
PT TO CT AT THIS TIME
--- NOTE | 2022-02-07 21:58 | PC.NURSE ---
Patient's daughter Sathish called, concerned about oxycodone being administered to the patient. Daughter stated that would not order this medication, however in the orders it says he did order it. I talked to the patient who said oxycodone will cause her stomach to bleed. Last RN administered this medication without any complications. Last RN was not aware of this since there was no communication about this in report. This RN called daughter twice with no answer, voicemail left with an update. Reported to hospitalist and will report to dayshift RN in the morning.
[2022-02-08] VITALS (9 sets, daily range): BP systolic 140–189; BP diastolic 79–87; PULSE 77–86; RESP 17–20; TEMP 36.2–37.4; O2SAT 92–100
[2022-02-08] MEDS: Morphine Sulfate 4 MG/ML CARTRIDGE 3 MG IVPUSH (03:22)
[2022-02-08] MEDS: Piperacillin Sodium/Tazobactam 2.25 GM in 0.9 % Sodium Chloride 50 ML IV ×2 (03:23→11:34)
--- NOTE | 2022-02-08 07:30 | PC.NURSE ---
Addendum entered by Vanessa Vargas RN 02/08/22 10:30: Neuros- tongue midline, face symmetrical, PERRLA. Original Note: Assumed care of patient at this time. Patient alert and oriented x3, fatigued, but responding appropriately, speech clear, neuros intact, except right sided weakness bilaterally in the upper and lower extremities; patient
--- NOTE | 2022-02-08 07:40 | PM.PNGS ---
Subjective Subjective Date of Service: 02/08/22 Patient reports: still having pain, tolerating a regular diet, flatus and bowel movement Interval history: The patient is experiencing severe back pain. She tolerated her diet and states she is passing gas and had a bowel movement, however she cannot get comfortable in the bed. Patient's daughter, Sathish, called me on my cell phone last night with multiple concerns regarding narcotics, her mother's confusion and ongoing back pain. A assured her we would address immediately. Physical Exam Vital Signs: Vital Signs: Last Vital Signs Temp 97.2 F 02/08/22 03:23 Pulse 86 02/08/22 03:23 Resp 19 02/08/22 03:23 BP 140/82 H 02/08/22 03:23 Pulse Ox 99 02/08/22 03:23 O2 Del Method 02/08/22 03:23 O2 Flow Rate 3 02/08/22 03:23 FiO2 35 02/04/22 11:22 BMI result Body Mass Index 27.5 The patient is uncomfortable; I helped her on cross her legs and reposition to try to get comfortable, however, she stated candidly I can't get comfortable. Her abdominal incision is healing well. Her abdomen is not distended and nontender. She has normoactive bowel sounds. Objective Data Active Medications Acetaminophen (Acetaminophen Supp 650 Mg Supp.Rect) 650 mg [place] Q6H PRN PRN Reason: Pain, Mild (Pain Scale 1-3) Acetaminophen (Acetaminophen 325 Mg Tablet) 650 mg PO Q6H PRN PRN Reason: Pain, Mild (Pain Scale 1-3) Last Admin: 02/03/22 07:46 Dose: 650 mg Documented By: RILEY-CARLOS Acetaminophen (Acetaminophen 325 Mg Tablet) 650 mg PO Q4H PRN PRN Reason: Pain, Mild (Pain Scale 1-3) Last Admin: 02/07/22 12:28 Dose: 650 mg Documented By: NEENA Albuterol/Ipratropium (Albuterol/Iprat 2.5/0.5mg 3 Ml Ampul.Neb) 3 ml INHALE RQ4H WHILE AWAKE [facility] Last Admin: 02/07/22 19:11 Dose: 3 ml Documented By: ARIANASOK Docusate Sodium (Docusate Sodium 100 Mg Capsule) 100 mg PO BID [facility] Last Admin: 02/07/22 20:33 Dose: 100 mg Documented By: CLEMENTINA Piperacillin Sod/Tazobactam (Sod 2.25 gm/ Sodium Chloride) 50 mls @ 100 mls/hr IV Q8H [facility] Last Infusion: 02/08/22 04:00 Dose: 0 mls/hr Documented By: CLEMENTINA Lidocaine (Lidocaine 4 % Patch Adh..Patch) 1 patch TRANSDERMA DAILY [facility]; Protocol Last Admin: 02/07/22 07:44 Dose: 1 patch Documented By: NEENA Ondansetron HCl (Ondansetron Hcl 4 Mg/2 Ml Vial) 4 mg IVPUSH Q8H PRN PRN Reason: Nausea and Vomiting Last Admin: 02/03/22 07:45 Dose: 4 mg Documented By: NEENA Sertraline HCl (Sertraline Hcl 100 Mg Tablet) 100 mg PO DAILY [facility] Last Admin: 02/07/22 07:45 Dose: 100 mg Documented By: NEENA Sodium Chloride (0.9 % Sodium Chloride Flush 3 Ml Syringe) 3 ml IVFLUSH QSHIFT [facility] Last Admin: 02/07/22 20:34 Dose: 3 ml Documented By: CLEMENTINA Labs CBC & Chem 7: 02/07/22 06:36 02/07/22 06:36 Labs: Laboratory Results - last 24 hr 02/07/22 06:36 Prealbumin 11.0 L Procedures Date of Service Date of Service: 02/08/22 Progress Note: A&P Assessment and plan (1) Malnutrition: Status: Acute (2) Frailty syndrome in geriatric patient: Status: Acute (3) Hiatal hernia: Status: Acute (4) COPD (chronic obstructive pulmonary disease): Status: Acute (5) Small bowel obstruction: Status: Acute (6) Chronic kidney disease: Status: Acute Plan The patient is tolerating a diet and her small-bowel obstruction is resolved. Her biggest issues continue to be her frailty, chronic protein malnutrition and her spinal stenosis and inability to become comfortable. I have DC'd narcotics at the request of Sathish, the daughter, given concerns about ongoing confusion. The patient's head CT shows expected atrophy and no acute pathology. Surgically, the patient is stable for transfer to a rehab on a regular diet supplemented with protein. Will ask nursing & hospitalist for options/id is regarding the patient's spinal stenosis pain and inability to medicate. Time Spent With Patient Time: Total time spent is greater than 50% in coordination of care (as documented) at patient's floor/unit and/or counseling patient: Quality Stroke Does the patient have a stroke diagnosis?: No VTE Prior VTE?: No VTE Risk Level:: Medical - moderate - high VTE Device Contraindication: N/A - Device Ordered VTE Drug Contraindication: Treatment Not Indicated
[2022-02-08] MEDS: Albuterol/Iprat 2.5/0.5MG 3 ML AMPUL.NEB INHALE ×2 (08:26→21:25)
[2022-02-08] MEDS: Lidocaine 4 % Patch ADH..PATCH 1 PATCH TRANSDERMA (10:24)
[2022-02-08] MEDS: Sertraline HCL 100 MG TABLET PO (10:25)
[2022-02-08] MEDS: 0.9 % Sodium Chloride Flush 3 ML SYRINGE IVFLUSH ×2 (10:25→16:09)
[2022-02-08] MEDS: Docusate Sodium 100 MG CAPSULE PO ×2 (10:25→21:05)
[2022-02-08] MEDS: Acetaminophen 325 MG TABLET 650 MG PO (10:25)
[2022-02-08 11:09] LABS: MANUAL DIFF FLAG NO
[2022-02-08 11:14] LABS: Basophils Percent Auto 0.3 % (0-2); Eosinophils Absolute Auto 0.1 X10*3/uL (0.0-0.4); Eosinophils Percent Auto 1.8 % (0-4); Hematocrit 28.5 % (37.0-47.0); Hemoglobin 8.8 g/dl (12.0-16.0); Imm Gran Abs Auto 0.31 X10*3/uL (0.00-0.03); Lymphocytes Absolute Auto 0.5 X10*3/uL (1.2-4.9); Lymphocytes Percent Auto 6.1 % (20-40); Mean Corpuscular HGB Conc 30.9 g/dl (31.0-35.0); Mean Corpuscular Hemoglobin 32.1 pg (27.0-33.0); Mean Platelet Volume 9.6 fL (9.4-12.3); Monocytes Absolute Auto 0.7 X10*3/uL (0.1-1.2); Monocytes Percent Auto 8.9 % (2-11); Neutrophils Absolute Auto 6.1 x10*3/uL (2.0-8.3); Neutrophils Percent Auto 78.9 % (45-73); Platelet Count 262 X10*3/uL (160-400); Red Blood Count 2.74 X10*6/uL (4.20-5.50); Red Cell Distribution Width 14.8 % (11.0-16.0); White Blood Count 7.7 X10*3/uL (4.8-10.8)
[2022-02-08 11:28] LABS: Anion Gap 16 (12-20); Blood Urea Nitrogen 43 mg/dL (9-16); Carbon Dioxide 21 mmol/L (22-29); Chloride 111 mmol/L (96-108); Creatinine Clr Calc Pharmacy 26.7; Estimated Glomerular Filt Rate 36; Glucose Random 119 mg/dL (60-115); Potassium 3.9 mmol/L (3.3-5.1); Sodium 144 mmol/L (135-145)
--- NOTE | 2022-02-08 13:20 | HO.PM.IMPN ---
Subjective Subjective Date of Service: 02/09/22 Interval History: Seen and examined this morning follow up for SBO.pt s/p laparotomy on 02/03 and remained intubated and went to ICU overnight. She was extubated 02/04 and downgraded from the ICU later overnight Her diet was advanced yesterday to regular diet and didn't seem to have iisues with it, she is c/o some pain in the area of her known scoliosis, she was given morphine for the pain. I spoke to the daughter who was concern about use narcotics for pain and also inconsistency around communication... See below for detail. Review of Systems no n/v no abd pain some back pain Physical Exam Vital Signs: Vital Signs: Last Vital Signs Temp 97.4 F 02/08/22 11:08 Pulse 83 02/08/22 11:08 Resp 20 02/08/22 11:08 BP 173/83 H 02/08/22 11:08 Pulse Ox 98 02/08/22 11:08 O2 Del Method 02/08/22 11:08 O2 Flow Rate 3 02/08/22 11:08 FiO2 35 02/04/22 11:22 BMI result Body Mass Index 27.5 Const: Other: General: She alert, oriented to self, place, year Resp: some rhonchi and congestion bilaterally CVS: S1,S2,RRR GI: +BS, minimal tenderness around incision, no distention Skin: No rash MSK: non specific left paraspinal tenderness, Neuro: motor grossly intact, she's moving all extremities equally, Psych: flat affect Objective Data Active Medications Acetaminophen (Acetaminophen Supp 650 Mg Supp.Rect) 650 mg [place] Q6H PRN PRN Reason: Pain, Mild (Pain Scale 1-3) Acetaminophen (Acetaminophen 325 Mg Tablet) 650 mg PO Q6H PRN PRN Reason: Pain, Mild (Pain Scale 1-3) Last Admin: 02/08/22 10:25 Dose: 650 mg Documented By: RILEY-RIVCLEMENTINA Acetaminophen (Acetaminophen 325 Mg Tablet) 650 mg PO Q4H PRN PRN Reason: Pain, Mild (Pain Scale 1-3) Last Admin: 02/07/22 12:28 Dose: 650 mg Documented By: NEENA Albuterol/Ipratropium (Albuterol/Iprat 2.5/0.5mg 3 Ml Ampul.Neb) 3 ml INHALE RQ4H WHILE AWAKE [facility] Last Admin: 02/08/22 11:27 Dose: Not Given Documented By: MARISA Non-Admin Reason: Patient Refused Docusate Sodium (Docusate Sodium 100 Mg Capsule) 100 mg PO BID [facility] Last Admin: 02/08/22 10:25 Dose: 100 mg Documented By: NEENA Piperacillin Sod/Tazobactam (Sod 2.25 gm/ Sodium Chloride) 50 mls @ 100 mls/hr IV Q8H [facility] Last Infusion: 02/08/22 12:28 Dose: 0 mls/hr Documented By: NEENA Lidocaine (Lidocaine 4 % Patch Adh..Patch) 1 patch TRANSDERMA DAILY [facility]; Protocol Last Admin: 02/08/22 10:24 Dose: 1 patch Documented By: NEENA Ondansetron HCl (Ondansetron Hcl 4 Mg/2 Ml Vial) 4 mg IVPUSH Q8H PRN PRN Reason: Nausea and Vomiting Last Admin: 02/03/22 07:45 Dose: 4 mg Documented By: NEENA Sertraline HCl (Sertraline Hcl 100 Mg Tablet) 100 mg PO DAILY [facility] Last Admin: 02/08/22 10:25 Dose: 100 mg Documented By: NEENA Sodium Chloride (0.9 % Sodium Chloride Flush 3 Ml Syringe) 3 ml IVFLUSH QSHIFT [facility] Last Admin: 02/08/22 10:25 Dose: 3 ml Documented By: NEENA Labs CBC & Chem 7: 02/08/22 11:05 02/08/22 11:05 Labs: Laboratory Results - last 24 hr 02/08/22 02/08/22 11:05 11:05 MCV 104.0 H MCH 32.1 MCHC 30.9 L RDW 14.8 Plt Count 262 MPV 9.6 Immature Gran % (Auto) 4.0 H Neut % (Auto) 78.9 H Lymph % (Auto) 6.1 L [place] % (Auto) 8.9 Eos % (Auto) 1.8 Baso % (Auto) 0.3 Lymph # (Auto) 0.5 L [place] # (Auto) 0.7 Eos # (Auto) 0.1 Baso # (Auto) 0.0 Abs Immat Gran (auto) 0.31 H Absolute Neuts (auto) 6.1 Absolute Nucleated RBC 0.000 Nucleated RBC % (auto) 0.0 Anion Gap 16 Estim Creat Clear Calc 26.7 Estimated GFR 36 Random Glucose 119 H Calcium 9.0 Assessment and Plan (1) Small bowel obstruction: Status: Acute (2) JONES (acute kidney injury): Status: Acute Plan 81-year-old female with bilateral unspecified mononeuropathy of lower extremity, chronic kidney disease who presents to the emergency department for evaluation of right sided abdominal pain. small-bowel obstruction s/p laparotomy lysis of adhesion require ICU care post op but succesfully extubated the next day and transfered out to med floor and has continued to make progress. NGT has been discontinued and her diet has been advanced from liquid to present regular diet that she doesn't seem to have issue with. Surgery has been following along, She is using incentive spirometry, at this point her pain seems to be at a reasonable level and narcotics have been discontinue to minimize risk of ileus/ constipation. 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 There maybe some element of fluid overload as evident by leg edeman and congestion on exam and will try IV Lasix and monitor output Continue to wean as tole and encourage use of Incentive spirometry COPD no acute exacerbation continue scheduled breathing treatments and PRN UTI--Treated with IV ceftriaxone, culture negative. While in ICU was also emprically started on Zosyn, Will stop at this time. Neuropathy--pregabalin stopped in ICU, but has restarted Hypomagnesemia- Secondary to GI losses Replaced and improved -repeat lab today 1.5 and given 2 grams and repeat next day Chronic macrocytic anemia B12 306, folate 12.2 H/H stable chronic back pain h/o spinal stenosis pain control, discussed pain management with patient with RN, she is presently satisfied with with her level of her pain Mood Continue sertraline mild transaminitis hold atorvastatin trend LFTs Code status: Full code DVT prophylaxis:? Mechanical compression boots, givien sisginficant anemia post op Continue hospitalization for treatment of small-bowel obstruction and post op care PT is recommending short term rehab when medically ready. I discussed the case with patient's daughter over the phone. She raised concerns about miscommunication Quality Stroke Does the patient have a stroke diagnosis?: No VTE Prior VTE?: No VTE Risk Level:: Medical - moderate - high VTE Device Contraindication: N/A - Device Ordered VTE Drug Contraindication: Treatment Not Indicated
--- NOTE | 2022-02-08 13:52 | PC.NURSE ---
Patient at this time refusing meals. Patient encouraged via this RN to order food and educated provided on health status and nutrients for health promotion. Patient verbally acknowledges and placed lunch and dinner orders.
[2022-02-08 15:11] LABS: Magnesium 1.5 mg/dL (1.6-2.6)
--- NOTE | 2022-02-08 15:45 | MHC.CM.PN ---
CM received a call from Serene/Asha. Patient and Asha's first choice would be [facility] and/or another area Acute Rehab, rather than SNF. Referrals have been made to the 3 area Acute Reh[facility] and CM will follow. Asha, who is in [facility] [phone] is the main contact for dc planning.
[2022-02-08] MEDS: Magnesium Sulfate/H2O 2 GM/50 ML PIGGYBACK IV (17:15)
[2022-02-08] MEDS: Furosemide 20 MG/2 ML VIAL IVPUSH (17:48)
[2022-02-09] VITALS (8 sets, daily range): BP systolic 157–187; BP diastolic 79–100; PULSE 75–98; RESP 16–20; TEMP 36.1–37; O2SAT 88–99
[2022-02-09] MEDS: 0.9 % Sodium Chloride Flush 3 ML SYRINGE IVFLUSH ×3 (01:27→21:07)
--- NOTE | 2022-02-09 07:10 | P.PNGS_ITS ---
Subjective Subjective Date of Service: 02/09/22 Patient reports: no new complaints, tolerating a regular diet, flatus and no bowel movement Interval history: The patient notes recurring confusion and stated pointedly I think I have my days and nights mixed up. She continues to endorse spinal stenosis pain and concern about bilateral lower extremity swelling. She denies chest pain, difficulty breathing or shortness of breath. She reports nausea with trying to move secondary to her back pain. There has been no vomiting. She is tolerating her diet but not eating much secondary to poor appetite. She reports that she is passing flatus but has not had a bowel movement for 2+ days. She otherwise denies localizing neurologic symptoms Physical Exam Vital Signs: Vital Signs: Last Vital Signs Temp 98.0 F 02/09/22 04:00 Pulse 78 02/09/22 04:00 Resp 16 02/09/22 04:00 BP 166/83 H 02/09/22 04:00 Pulse Ox 99 02/09/22 04:00 O2 Del Method 02/09/22 04:00 O2 Flow Rate 3 02/08/22 11:08 FiO2 35 02/04/22 11:22 BMI result Body Mass Index 27.5 NC/AT, PERRLA, EOMI Patient is nontoxic and communicating in full sentences Cranial nerves 2-12 were intact Upper and lower extremity strength is symmetric Abdomen is nondistended, her incision is healing well with no evidence of infection/cellulitis or drainage Objective Data Active Medications Acetaminophen (Acetaminophen Supp 650 Mg Supp.Rect) 650 mg [place] Q6H PRN PRN Reason: Pain, Mild (Pain Scale 1-3) Acetaminophen (Acetaminophen 325 Mg Tablet) 650 mg PO Q6H PRN PRN Reason: Pain, Mild (Pain Scale 1-3) Last Admin: 02/08/22 10:25 Dose: 650 mg Documented By: NEENA Acetaminophen (Acetaminophen 325 Mg Tablet) 650 mg PO Q4H PRN PRN Reason: Pain, Mild (Pain Scale 1-3) Last Admin: 02/07/22 12:28 Dose: 650 mg Documented By: NEENA Albuterol/Ipratropium (Albuterol/Iprat 2.5/0.5mg 3 Ml Ampul.Neb) 3 ml INHALE RQ4H WHILE AWAKE [facility] Last Admin: 02/08/22 21:25 Dose: 3 ml Documented By: JHONY Allopurinol (Allopurinol 100 Mg Tablet) 100 mg PO DAILY [facility] Bisacodyl (Bisacodyl 10 Mg Supp.Rect) 10 mg [place] DAILY PRN PRN Reason: Constipation Docusate Sodium (Docusate Sodium 100 Mg Capsule) 100 mg PO BID [facility] Last Admin: 02/08/22 21:05 Dose: 100 mg Documented By: OMARI Lidocaine (Lidocaine 4 % Patch Adh..Patch) 1 patch TRANSDERMA DAILY [facility]; Protocol Last Admin: 02/08/22 10:24 Dose: 1 patch Documented By: NEENA Ondansetron HCl (Ondansetron Hcl 4 Mg/2 Ml Vial) 4 mg IVPUSH Q8H PRN PRN Reason: Nausea and Vomiting Last Admin: 02/03/22 07:45 Dose: 4 mg Documented By: NEENA Sertraline HCl (Sertraline Hcl 100 Mg Tablet) 100 mg PO DAILY [facility] Last Admin: 02/08/22 10:25 Dose: 100 mg Documented By: NEENA Sodium Chloride (0.9 % Sodium Chloride Flush 3 Ml Syringe) 3 ml IVFLUSH QSHIFT [facility] Last Admin: 02/09/22 01:27 Dose: 3 ml Documented By: OMARI Labs CBC & Chem 7: 02/08/22 11:05 02/08/22 11:05 Labs: Laboratory Results - last 24 hr 02/08/22 02/08/22 11:05 11:05 MCV 104.0 H MCH 32.1 MCHC 30.9 L RDW 14.8 Plt Count 262 MPV 9.6 Immature Gran % (Auto) 4.0 H Neut % (Auto) 78.9 H Lymph % (Auto) 6.1 L [place] % (Auto) 8.9 Eos % (Auto) 1.8 Baso % (Auto) 0.3 Lymph # (Auto) 0.5 L [place] # (Auto) 0.7 Eos # (Auto) 0.1 Baso # (Auto) 0.0 Abs Immat Gran (auto) 0.31 H Absolute Neuts (auto) 6.1 Absolute Nucleated RBC 0.000 Nucleated RBC % (auto) 0.0 Anion Gap 16 Estim Creat Clear Calc 26.7 Estimated GFR 36 Random Glucose 119 H Calcium 9.0 Magnesium 1.5 L Procedures Date of Service Date of Service: 02/09/22 Progress Note: A&P Assessment and plan (1) Malnutrition: Status: Acute (2) Frailty syndrome in geriatric patient: Status: Acute (3) Hiatal hernia: Status: Acute (4) JONES (acute kidney injury): Status: Acute (5) COPD (chronic obstructive pulmonary disease): Status: Acute (6) Peripheral neuropathy: Status: Acute (7) Chronic kidney disease: Status: Acute (8) Small bowel obstruction: Status: Acute Plan I have ordered a bisacodyl suppository and communicated with the nurse requesting that it be ordered today. While a patient reports she is passing gas, her limited mobility may be affecting her ability to defecate. Continue present diet. Continue protein supplementation. Surgically, she is stable for transfer for rehabilitation due to surgical deconditioning and pre-existing frailty/spinal stenosis related mobility issues and chronic pain. Time Spent With Patient Time: Total time spent is greater than 50% in coordination of care (as documented) at patient's floor/unit and/or counseling patient: Quality Stroke Does the patient have a stroke diagnosis?: No VTE Prior VTE?: No VTE Risk Level:: Medical - moderate - high VTE Device Contraindication: N/A - Device Ordered VTE Drug Contraindication: Treatment Not Indicated
[2022-02-09] MEDS: Albuterol/Iprat 2.5/0.5MG 3 ML AMPUL.NEB INHALE (08:13)
[2022-02-09] MEDS: Docusate Sodium 100 MG CAPSULE PO (08:17)
[2022-02-09] MEDS: Sertraline HCL 100 MG TABLET PO (08:17)
[2022-02-09] MEDS: allopurinoL 100 MG TABLET PO (08:17)
[2022-02-09] MEDS: Acetaminophen 325 MG TABLET 650 MG PO ×2 (08:17→14:49)
[2022-02-09] MEDS: Lidocaine 4 % Patch ADH..PATCH 1 PATCH TRANSDERMA (08:18)
--- NOTE | 2022-02-09 10:11 | P.PNNP_ITS ---
Subjective Subjective Date of Service: 02/09/22 Interval history: Seen and examined, events noted Physical Exam Vital Signs: Vital Signs: Last Vital Signs Temp 97.9 F 02/09/22 08:00 Pulse 78 02/09/22 08:15 Resp 18 02/09/22 08:15 BP 180/100 H 02/09/22 08:00 Pulse Ox 95 02/09/22 08:00 O2 Del Method 02/09/22 08:00 O2 Flow Rate 1 02/09/22 08:00 FiO2 35 02/04/22 11:22 BMI result Body Mass Index 27.5 Const: General: cooperative and no acute distress HEENT: Head: Yes normocephalic Resp: Effort & Inspection: normal respiratory effort Auscultation: clear to auscultation bilaterally Cardio: Jugular venous distension: no JVD Rate: regular rate Rhythm: regular rhythm Heart sounds: S1 normal heart sound present and S2 normal heart sound present GI: Auscultation: normal bowel sounds Skin: General skin exam: no rashes or lesions noted Neuro: General: moves all extremities Extrem: General: Yes no clubbing, cyanosis or edema Objective Data Labs CBC & Chem 7: 02/08/22 11:05 02/08/22 11:05 Labs: Laboratory Results - last 24 hr 02/08/22 02/08/22 11:05 11:05 WBC 7.7 RBC 2.74 L Hgb 8.8 L Hct 28.5 L MCV 104.0 H MCH 32.1 MCHC 30.9 L RDW 14.8 Plt Count 262 MPV 9.6 Immature Gran % (Auto) 4.0 H Neut % (Auto) 78.9 H Lymph % (Auto) 6.1 L [place] % (Auto) 8.9 Eos % (Auto) 1.8 Baso % (Auto) 0.3 Lymph # (Auto) 0.5 L [place] # (Auto) 0.7 Eos # (Auto) 0.1 Baso # (Auto) 0.0 Abs Immat Gran (auto) 0.31 H Absolute Neuts (auto) 6.1 Absolute Nucleated RBC 0.000 Nucleated RBC % (auto) 0.0 Sodium 144 Potassium 3.9 Chloride 111 H Carbon Dioxide 21 L Anion Gap 16 BUN 43 H Creatinine 1.40 Estim Creat Clear Calc 26.7 Estimated GFR 36 Random Glucose 119 H Calcium 9.0 Magnesium 1.5 L Microbiology Microbiology Results: Microbiology 02/01/22 21:06 Blood - Venous Blood Culture - Final No growth after 5 days. 02/01/22 19:26 Blood - Venous Blood Culture - Final No growth after 5 days. 02/02/22 00:00 Urine Catheterized - Straight Catheter Urine Culture - Final Procedures Date of Service Date of Service: 02/09/22 Assessment & Plan Assessment and plan (1) JONES (acute kidney injury): Status: Acute Assessment and Plan: 1. JONES: resolving with peak SCr 2.2 and now SCr 1.4 below BSL 2. CKD 4: Scr 1.5-2.0; ? etiol 3. CKD management: will need outpt f/u re CKD management 5. HTN REC: add norvasc 5; cont to track UOP/renal func; avoid NToxins (2) Chronic kidney disease: Status: Acute Time Spent With Patient Time: Total time spent is greater than 50% in coordination of care (as documented) at patient's floor/unit and/or counseling patient: Progress Note: Quality Stroke Does the patient have a stroke diagnosis?: No
--- NOTE | 2022-02-09 10:18 | PC.NURSE ---
Patient able to eat some of her breakfast. Im exhausted Patient appears fatigued, c/o of back pain. Medicated with tylenol. Patient had Bowel movement.
[2022-02-09] MEDS: ondansetron HCL 4 MG/2 ML VIAL IVPUSH ×2 (11:21→21:11)
[2022-02-09] MEDS: amLODIPine Besylate 5 MG TABLET PO (11:24)
--- NOTE | 2022-02-09 11:31 | PC.NURSE ---
Patient had 2 episodes of diarrhea, and c/o of nausea, with dry heaves. Medicated with zofran. Repositioned and barrier cream applied to buttocks.
--- NOTE | 2022-02-09 13:10 | MHC.CLN ---
F/U PO INTAKE 50% DIET ADVANCED TO REGULAR PT RECEIVING ENSURE MAX BID PER MD TO INCREASE KCALS AND PROMOTE WOUND HEALING SUPPLEMENT PROVIDES 300KCALS, 60G PROTEIN (1.2G/KG) WITH 100% ACCEPTANCE MONITOR PO INTAKE CLOSELY
[2022-02-09 13:44] LABS: Anion Gap 19 (12-20); Blood Urea Nitrogen 35 mg/dL (9-16); Calcium 9.1 mg/dL (8.4-10.2); Carbon Dioxide 19 mmol/L (22-29); Chloride 107 mmol/L (96-108); Creatinine Clr Calc Pharmacy 37.1; Estimated Glomerular Filt Rate 53; Glucose Random 111 mg/dL (60-115); Potassium 3.4 mmol/L (3.3-5.1); Sodium 142 mmol/L (135-145)
--- NOTE | 2022-02-09 13:54 | HO.PM.IMPN ---
Subjective Subjective Date of Service: 02/10/22 Interval History: Seen and examined this morning follow up for SBO pt s/p laparotomy on 02/03 and remained intubated and went to ICU overnight. She was extubated 02/04 and downgraded from the ICU later overnight Her diet was advanced on 02/08 to regular diet and has been doing ok, she is now complaining of nausea and belching but no abdominal pain, also there is report of diarrhea, she still has back pain and gets some relief with Tylenol Review of Systems nausea but no abdominal pain diarrhea, some back pain Physical Exam Vital Signs: Vital Signs: Last Vital Signs Temp 97.8 F 02/09/22 11:36 Pulse 75 02/09/22 11:36 Resp 16 02/09/22 11:36 BP 185/96 H 02/09/22 11:36 Pulse Ox 95 02/09/22 11:36 O2 Del Method 02/09/22 11:36 O2 Flow Rate 1 02/09/22 11:36 FiO2 35 02/04/22 11:22 BMI result Body Mass Index 27.5 Const: Other: General: She alert, oriented to self, place, year Resp: some rhonchi and congestion bilaterally CVS: S1,S2,RRR, some leg edema GI: +BS, minimal tenderness around incision, no distention Skin: No rash MSK: non specific left paraspinal tenderness, Neuro: motor grossly intact, she's moving all extremities equally, Psych: flat affect Objective Data Active Medications Acetaminophen (Acetaminophen Supp 650 Mg Supp.Rect) 650 mg [place] Q6H PRN PRN Reason: Pain, Mild (Pain Scale 1-3) Acetaminophen (Acetaminophen 325 Mg Tablet) 650 mg PO Q6H PRN PRN Reason: Pain, Mild (Pain Scale 1-3) Last Admin: 02/08/22 10:25 Dose: 650 mg Documented By: NEENA Acetaminophen (Acetaminophen 325 Mg Tablet) 650 mg PO Q4H PRN PRN Reason: Pain, Mild (Pain Scale 1-3) Last Admin: 02/09/22 08:17 Dose: 650 mg Documented By: TABATHA Albuterol/Ipratropium (Albuterol/Iprat 2.5/0.5mg 3 Ml Ampul.Neb) 3 ml INHALE RQ4H WHILE AWAKE [facility] Last Admin: 02/09/22 11:22 Dose: Not Given Documented By: MARISA Non-Admin Reason: Patient Refused Allopurinol (Allopurinol 100 Mg Tablet) 100 mg PO DAILY [facility] Last Admin: 02/09/22 08:17 Dose: 100 mg Documented By: TABATHA Amlodipine Besylate (Amlodipine Besylate 5 Mg Tablet) 5 mg PO DAILY [facility]; Protocol Last Admin: 02/09/22 11:24 Dose: 5 mg Documented By: TABATHA Bisacodyl (Bisacodyl 10 Mg Supp.Rect) 10 mg [place] DAILY PRN PRN Reason: Constipation Docusate Sodium (Docusate Sodium 100 Mg Capsule) 100 mg PO BID [facility] Last Admin: 02/09/22 08:17 Dose: 100 mg Documented By: TABATHA Furosemide (Furosemide 20 Mg/2 Ml Vial) 20 mg IVPUSH ONCE ONE; Protocol Stop: 02/09/22 13:53 Lidocaine (Lidocaine 4 % Patch Adh..Patch) 1 patch TRANSDERMA DAILY [facility]; Protocol Last Admin: 02/09/22 08:18 Dose: 1 patch Documented By: TABATHA Ondansetron HCl (Ondansetron Hcl 4 Mg/2 Ml Vial) 4 mg IVPUSH Q8H PRN PRN Reason: Nausea and Vomiting Last Admin: 02/09/22 11:21 Dose: 4 mg Documented By: TABATHA Sertraline HCl (Sertraline Hcl 100 Mg Tablet) 100 mg PO DAILY [facility] Last Admin: 02/09/22 08:17 Dose: 100 mg Documented By: TABATHA Sodium Chloride (0.9 % Sodium Chloride Flush 3 Ml Syringe) 3 ml IVFLUSH QSHIFT [facility] Last Admin: 02/09/22 08:29 Dose: 3 ml Documented By: TABATHA Labs CBC & Chem 7: 02/08/22 11:05 02/09/22 12:59 Labs: Laboratory Results - last 24 hr 02/08/22 02/09/22 11:05 12:59 Anion Gap 19 Estim Creat Clear Calc 37.1 Estimated GFR 53 Random Glucose 111 Calcium 9.1 Magnesium 1.5 L Assessment and Plan (1) Small bowel obstruction: Status: Acute (2) JONES (acute kidney injury): Status: Acute Plan 81-year-old female with bilateral unspecified mononeuropathy of lower extremity, chronic kidney disease who presents to the emergency department for evaluation of right sided abdominal pain. small-bowel obstruction s/p laparotomy lysis of adhesion require ICU care post op but succesfully extubated the next day and transfered out to med floor and has continued to make progress. NGT has been discontinued and her diet has been advanced from liquid to present regular diet that she doesn't seem to have issue with. Surgery has been following along, She is using incentive spirometry, at this point her pain seems to be at a reasonable level and narcotics have been discontinue to minimize risk of ileus/ constipation. JONES on CKD4--Her creatine has improved to presently 1.1 from a high of 2.44 on 02/05, she was on IVF but is no longer on this and hypotension around 02/04 has resolved. 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 There maybe some element of fluid overload as evident by leg edeman and congestion on exam and will try IV Lasix and monitor output Continue to wean as tole and encourage use of Incentive spirometry COPD no acute exacerbation continue scheduled breathing treatments and PRN UTI--Treated with IV ceftriaxone, culture negative. While in ICU was also emprically started on Zosyn, Will stop at this time. Neuropathy--pregabalin stopped in ICU, but has restarted Hypomagnesemia- Secondary to GI losses Replaced and improved -repeat lab today 1.5 and given 2 grams and repeat next day Chronic macrocytic anemia B12 306, folate 12.2 H/H stable chronic back pain h/o spinal stenosis pain control, discussed pain management with patient with RN, she is presently satisfied with with her level of her pain Mood Continue sertraline mild transaminitis hold atorvastatin trend LFTs Ddiarrhea, check c dif, could be related to mag. HyPoma Code status: Full code DVT prophylaxis:? Mechanical compression boots, givien sisginficant anemia post op Continue hospitalization for treatment of small-bowel obstruction and post op care PT is recommending short term rehab when medically ready. I discussed the case with patient's daughter Asha over the phone and address her concerns Quality Stroke Does the patient have a stroke diagnosis?: No VTE Prior VTE?: No VTE Risk Level:: Medical - moderate - high VTE Device Contraindication: N/A - Device Ordered VTE Drug Contraindication: Treatment Not Indicated
[2022-02-09 14:05] LABS: Magnesium 1.3 mg/dL (1.6-2.6)
[2022-02-09] MEDS: Pantoprazole Sodium 40 MG/10 ML VIAL IVPUSH (14:08)
[2022-02-09] MEDS: Furosemide 20 MG/2 ML VIAL IVPUSH (14:08)
[2022-02-09] MEDS: Magnesium Sulfate/H2O 2 GM/50 ML PIGGYBACK IV (14:34)
[2022-02-09 16:32] LABS: CDiff Gene PCR NEGATIVE (Negative)
[2022-02-09] MEDS: hydrALAZINE HCl 20 MG/ML VIAL 5 MG IVPUSH (17:14)
[2022-02-09] MEDS: Heparin Sodium,Porcine 5,000 UNIT/ML VIAL 5000 UNIT SUBCUT (17:14)
[2022-02-09] MEDS: Ketorolac Tromethamine 15 MG/ML VIAL IVPUSH (22:46)
[2022-02-10] VITALS (7 sets, daily range): BP systolic 142–174; BP diastolic 72–92; PULSE 67–97; RESP 12–20; TEMP 36.5–37; O2SAT 93–97
[2022-02-10] MEDS: Metoclopramide HCl 10 MG/2 ML VIAL 5 MG IVPUSH (01:05)
--- NOTE | 2022-02-10 01:42 | PC.NURSE ---
Patient c/o nausea/vomiting and back pain at 2044. PRN zofran given for nausea with minimal effect. Pt unable to take any PO meds due to vomiting. Dr. Rowe notified and ordered a one time dose of toradol and a one time dose of reglan. Pt reassessed and reports pain is better and nausea has improved.
--- NOTE | 2022-02-10 07:13 | P.PNGS_ITS ---
Subjective Subjective Date of Service: 02/10/22 Patient reports: still having pain, tolerating a regular diet, flatus and bowel movement Interval history: The patient's sensorium appears more clear today. She notes that overnight she has been having a fair amount of belching and even the she is passing gas and having a bowel movement, she had some vomiting yesterday. She otherwise denies chest pain, difficulty breathing or shortness of breath. She has no focal neurologic symptoms. Physical Exam Vital Signs: Vital Signs: Last Vital Signs Temp 97.7 F 02/10/22 03:22 Pulse 82 02/10/22 03:22 Resp 18 02/10/22 03:22 BP 158/86 H 02/10/22 03:22 Pulse Ox 93 02/10/22 03:22 O2 Del Method 02/10/22 03:22 O2 Flow Rate 2 02/10/22 03:22 FiO2 35 02/04/22 11:22 BMI result Body Mass Index 27.5 She is nontoxic & her sensorium is improved Her abdominal incision is healing well with no evidence of cellulitis nor infection Abdomen is nondistended, some tympany is present Objective Data Active Medications Acetaminophen (Acetaminophen Supp 650 Mg Supp.Rect) 650 mg [place] Q6H PRN PRN Reason: Pain, Mild (Pain Scale 1-3) Acetaminophen (Acetaminophen 325 Mg Tablet) 650 mg PO Q6H PRN PRN Reason: Pain, Mild (Pain Scale 1-3) Last Admin: 02/08/22 10:25 Dose: 650 mg Documented By: NEENA Acetaminophen (Acetaminophen 325 Mg Tablet) 650 mg PO Q4H PRN PRN Reason: Pain, Mild (Pain Scale 1-3) Last Admin: 02/09/22 14:49 Dose: 650 mg Documented By: TABATHA Albuterol/Ipratropium (Albuterol/Iprat 2.5/0.5mg 3 Ml Ampul.Neb) 3 ml INHALE RQ4H WHILE AWAKE [facility] Last Admin: 02/09/22 20:54 Dose: Not Given Documented By: YESY Non-Admin Reason: Patient Asleep Allopurinol (Allopurinol 100 Mg Tablet) 100 mg PO DAILY [facility] Last Admin: 02/09/22 08:17 Dose: 100 mg Documented By: TABATHA Amlodipine Besylate (Amlodipine Besylate 5 Mg Tablet) 5 mg PO DAILY [facility]; Protocol Last Admin: 02/09/22 11:24 Dose: 5 mg Documented By: TABATHA Bisacodyl (Bisacodyl 10 Mg Supp.Rect) 10 mg [place] DAILY PRN PRN Reason: Constipation Docusate Sodium (Docusate Sodium 100 Mg Capsule) 100 mg PO BID [facility] Last Admin: 02/09/22 21:06 Dose: Not Given Documented By: YON Non-Admin Reason: pt had diarrhea earlier today Heparin Sodium (Porcine) (Heparin Sodium,Porcine 5,000 Unit/Ml Vial) 5,000 unit SUBCUT Q12H [facility] Last Admin: 02/10/22 06:55 Dose: Not Given Documented By: DOUG Non-Admin Reason: Patient Refused Lidocaine (Lidocaine 4 % Patch Adh..Patch) 1 patch TRANSDERMA DAILY [facility]; Protocol Last Admin: 02/09/22 08:18 Dose: 1 patch Documented By: TABATHA Ondansetron HCl (Ondansetron Hcl 4 Mg/2 Ml Vial) 4 mg IVPUSH Q8H PRN PRN Reason: Nausea and Vomiting Last Admin: 02/09/22 21:11 Dose: 4 mg Documented By: YON Sertraline HCl (Sertraline Hcl 100 Mg Tablet) 100 mg PO DAILY [facility] Last Admin: 02/09/22 08:17 Dose: 100 mg Documented By: TABATHA Sodium Chloride (0.9 % Sodium Chloride Flush 3 Ml Syringe) 3 ml IVFLUSH QSHIFT [facility] Last Admin: 02/09/22 21:07 Dose: 3 ml Documented By: YON Labs CBC & Chem 7: 02/08/22 11:05 02/09/22 12:59 Labs: Laboratory Results - last 24 hr 02/09/22 02/09/22 12:59 15:15 Anion Gap 19 Estim Creat Clear Calc 37.1 Estimated GFR 53 Random Glucose 111 Calcium 9.1 Magnesium 1.3 L* C. difficile Tox B Gene NEGATIVE Procedures Date of Service Date of Service: 02/10/22 Progress Note: A&P Assessment and plan (1) Malnutrition: Status: Acute (2) Frailty syndrome in geriatric patient: Status: Acute (3) Hiatal hernia: Status: Acute (4) JONES (acute kidney injury): Status: Acute (5) COPD (chronic obstructive pulmonary disease): Status: Acute (6) Vomiting: Status: Acute Plan Check stat abdominal x-rays. Confusing situation as she is passing gas and having bowel movements. She may have an ileus. May need CT with oral contrast; will follow-up after abdominal x-rays are complete. ADDENDUM 02/11/2020 0939 I I personally reviewed the abdominal flat plate x-rays as well as the report. Based on the fact the patient reports flatus and has had a bowel movement, I suspect she has a resolving ileus. Diet can be advanced as tolerated and the patient should be instructed to limit herself to stop when she becomes nauseated or bloated. Continue protein supplements as ordered. Time Spent With Patient Time: Total time spent is greater than 50% in coordination of care (as documented) at patient's floor/unit and/or counseling patient: Quality Stroke Does the patient have a stroke diagnosis?: No VTE Prior VTE?: No VTE Risk Level:: Medical - moderate - high VTE Device Contraindication: N/A - Device Ordered VTE Drug Contraindication: Treatment Not Indicated
--- NOTE | 2022-02-10 07:56 | HO.PM.IMPN ---
Subjective Subjective Date of Service: 02/12/22 Interval History: Seen and examined this morning follow up for SBO pt s/p laparotomy on 02/03 and remained intubated and went to ICU overnight. She was extubated 02/04 and downgraded from the ICU later overnight she has continued to have nausea and vomitting overnight and feels tired and weak, vitals are stable has some back ache that seems better with Tylenol. has requested a CT of the abdomen and pelvis Review of Systems nausea but no abdominal pain diarrhea, some back pain Physical Exam Vital Signs: Vital Signs: Last Vital Signs Temp 97.9 F 02/10/22 07:42 Pulse 97 02/10/22 07:42 Resp 20 02/10/22 07:42 BP 153/92 H 02/10/22 07:42 Pulse Ox 95 02/10/22 07:42 O2 Del Method 02/10/22 07:42 O2 Flow Rate 2 02/10/22 07:42 FiO2 35 02/04/22 11:22 BMI result Body Mass Index 27.5 Const: Other: General: She alert, oriented to self, place, year Resp: some rhonchi and congestion bilaterally CVS: S1,S2,RRR, some leg edema GI: +BS, minimal tenderness around incision, no distention Skin: No rash MSK: non specific left paraspinal tenderness, Neuro: motor grossly intact, she's moving all extremities equally, Psych: flat affect Objective Data Active Medications Acetaminophen (Acetaminophen Supp 650 Mg Supp.Rect) 650 mg [place] Q6H PRN PRN Reason: Pain, Mild (Pain Scale 1-3) Acetaminophen (Acetaminophen 325 Mg Tablet) 650 mg PO Q6H PRN PRN Reason: Pain, Mild (Pain Scale 1-3) Last Admin: 02/08/22 10:25 Dose: 650 mg Documented By: NEENA Acetaminophen (Acetaminophen 325 Mg Tablet) 650 mg PO Q4H PRN PRN Reason: Pain, Mild (Pain Scale 1-3) Last Admin: 02/09/22 14:49 Dose: 650 mg Documented By: TABATHA Albuterol/Ipratropium (Albuterol/Iprat 2.5/0.5mg 3 Ml Ampul.Neb) 3 ml INHALE RQ4H WHILE AWAKE [facility] Last Admin: 02/10/22 07:50 Dose: Not Given Documented By: JONORICC Non-Admin Reason: Patient Refused Allopurinol (Allopurinol 100 Mg Tablet) 100 mg PO DAILY [facility] Last Admin: 02/09/22 08:17 Dose: 100 mg Documented By: TABATHA Amlodipine Besylate (Amlodipine Besylate 5 Mg Tablet) 5 mg PO DAILY [facility]; Protocol Last Admin: 02/09/22 11:24 Dose: 5 mg Documented By: TABATHA Bisacodyl (Bisacodyl 10 Mg Supp.Rect) 10 mg [place] DAILY PRN PRN Reason: Constipation Docusate Sodium (Docusate Sodium 100 Mg Capsule) 100 mg PO BID [facility] Last Admin: 02/09/22 21:06 Dose: Not Given Documented By: YON Non-Admin Reason: pt had diarrhea earlier today Heparin Sodium (Porcine) (Heparin Sodium,Porcine 5,000 Unit/Ml Vial) 5,000 unit SUBCUT Q12H [facility] Last Admin: 02/10/22 06:55 Dose: Not Given Documented By: DOUG Non-Admin Reason: Patient Refused Lidocaine (Lidocaine 4 % Patch Adh..Patch) 1 patch TRANSDERMA DAILY [facility]; Protocol Last Admin: 02/09/22 08:18 Dose: 1 patch Documented By: TABATHA Ondansetron HCl (Ondansetron Hcl 4 Mg/2 Ml Vial) 4 mg IVPUSH Q8H PRN PRN Reason: Nausea and Vomiting Last Admin: 02/09/22 21:11 Dose: 4 mg Documented By: YON Sertraline HCl (Sertraline Hcl 100 Mg Tablet) 100 mg PO DAILY [facility] Last Admin: 02/09/22 08:17 Dose: 100 mg Documented By: TABATHA Sodium Chloride (0.9 % Sodium Chloride Flush 3 Ml Syringe) 3 ml IVFLUSH QSHIFT [facility] Last Admin: 02/09/22 21:07 Dose: 3 ml Documented By: YON Labs CBC & Chem 7: 02/11/22 07:51 02/11/22 07:51 Labs: Laboratory Results - last 24 hr 02/09/22 02/09/22 12:59 15:15 Anion Gap 19 Estim Creat Clear Calc 37.1 Estimated GFR 53 Random Glucose 111 Calcium 9.1 Magnesium 1.3 L* C. difficile Tox B Gene NEGATIVE Assessment and Plan (1) Small bowel obstruction: Status: Acute (2) JONES (acute kidney injury): Status: Acute Plan 81-year-old female with bilateral unspecified mononeuropathy of lower extremity, chronic kidney disease who presents to the emergency department for evaluation of right sided abdominal pain. small-bowel obstruction s/p laparotomy lysis of adhesion require ICU care post op but succesfully extubated the next day and transfered out to [facility] floor and has continued to make progress. NGT has been discontinued and her diet has been advanced from liquid to present regular diet that she doesn't seem to have issue with. Surgery has been following along, She is using incentive spirometry, at this point her pain seems to be at a reasonable level and narcotics have been discontinue to minimize risk of ileus/ constipation. Over the last 24 hours she she has been having nausea and vomitting and not able to tolerate PO, and so made NPO overnight. A CT of abdomen and pelvis is requested this morning. CT showed no acute finding and was reviewed by Dr. 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 There maybe some element of fluid overload as evident by leg edeman and congestion on exam and was given IV Lasix COPD no acute exacerbation continue scheduled breathing treatments and PRN UTI--Treated with IV ceftriaxone, culture negative. While in ICU was also emprically started on Zosyn, Will stop at this time. Neuropathy--pregabalin stopped in ICU, but has restarted Hypomagnesemia- Secondary to GI losses IV replacement, 1.6 today Chronic macrocytic anemia B12 306, folate 12.2 H/H stable chronic back pain h/o spinal stenosis pain control, discussed pain management with patient with RN. In light of not been able to keep oral and changed tyelenol to IV Mood Continue sertraline mild transaminitis hold atorvastatin trend LFTs Ddiarrhea, C dif negative Code status: Full code DVT prophylaxis:? Mechanical compression boots, givien sisginficant anemia post op Continue hospitalization for treatment of small-bowel obstruction and post op care PT is recommending short term rehab when medically ready. Plan discussed with daughter at the bedside Quality Stroke Does the patient have a stroke diagnosis?: No VTE Prior VTE?: No VTE Risk Level:: Medical - moderate - high VTE Device Contraindication: N/A - Device Ordered VTE Drug Contraindication: Treatment Not Indicated
[2022-02-10] MEDS: ondansetron HCL 4 MG/2 ML VIAL IVPUSH ×3 (08:38→21:32)
[2022-02-10] MEDS: 0.9 % Sodium Chloride Flush 3 ML SYRINGE IVFLUSH ×2 (08:38→21:33)
[2022-02-10 10:13] LABS: Anion Gap 21 (12-20); Blood Urea Nitrogen 30 mg/dL (9-16); Calcium 9.2 mg/dL (8.4-10.2); Carbon Dioxide 17 mmol/L (22-29); Chloride 108 mmol/L (96-108); Creatinine Clr Calc Pharmacy 35.3; Estimated Glomerular Filt Rate 50; Glucose Random 104 mg/dL (60-115); Magnesium 1.4 mg/dL (1.6-2.6); Potassium 3.4 mmol/L (3.3-5.1); Sodium 143 mmol/L (135-145)
[2022-02-10] MEDS: Magnesium Sulfate/H2O 2 GM/50 ML PIGGYBACK IV (10:58)
[2022-02-10] MEDS: Albuterol/Iprat 2.5/0.5MG 3 ML AMPUL.NEB INHALE (11:23)
--- NOTE | 2022-02-10 12:49 | PC.NURSE ---
pt has had several episodes of emesis, producing bileous vomit. While pt's diet was advanced, she is not particularly hungry. AM PO meds were held as she would be unlikely to keep them down. MD aware.
[2022-02-10] MEDS: Acetaminophen 325 MG TABLET 650 MG PO (14:26)
[2022-02-10] MEDS: Heparin Sodium,Porcine 5,000 UNIT/ML VIAL 5000 UNIT SUBCUT (16:56)
[2022-02-11] VITALS: BP 142/83; PULSE 86; RESP 16; TEMP 36.5; O2SAT 96
[2022-02-11 04:00] VITALS: BP 171/94; PULSE 84; RESP 16; TEMP 36.6; O2SAT 97
[2022-02-11] MEDS: ondansetron HCL 4 MG/2 ML VIAL IVPUSH ×2 (05:00→22:42)
--- NOTE | 2022-02-11 07:25 | P.PNGS_ITS ---
Subjective Subjective Date of Service: 02/11/22 Interval history: The case was discussed with Dr. Baeza last night and again this morning. The patient is intermittently having nausea and vomiting of bilious material in spite of the fact that she is passing gas and having bowel movements. I have ordered a CT of the abdomen and pelvis with oral and IV contrast, if her renal function does not preclude IV contrast, to assess the patient's GI function and possible abscess. The patient required at least 6 attempts at nasogastric tube intraoperatively. Given the difficulty placing an NG secondary to her hiatal hernia and anatomy(scoliosis), Interventional Radiology may be required if a nasogastric tube is required. It would be preferable to keep the patient on liquid diet with protein supplementation until she has better bowel function. For now, NPO except for meds. Patient also endorses diarrhea with nausea & vomiting. Prior C diff check on diarrheawas negative. Please advise radiology of the patient's renal impairment; they may wish to avoid or give a decreased dose of IV contrast. Physical Exam Vital Signs: Vital Signs: Last Vital Signs Temp 97.8 F 02/11/22 04:00 Pulse 84 02/11/22 04:00 Resp 16 02/11/22 04:00 BP 171/94 H 02/11/22 04:00 Pulse Ox 97 02/11/22 04:00 O2 Del Method 02/11/22 04:00 O2 Flow Rate 1 02/11/22 00:00 FiO2 35 02/04/22 11:22 BMI result Body Mass Index 27.5 The patient's sensorium continues to improve and she is communicating clearly. Abdominal incision is clean, dry and intact Expected incisional tenderness is present. Objective Data Active Medications Acetaminophen (Acetaminophen Supp 650 Mg Supp.Rect) 650 mg [place] Q6H PRN PRN Reason: Pain, Mild (Pain Scale 1-3) Acetaminophen (Acetaminophen 325 Mg Tablet) 650 mg PO Q6H PRN PRN Reason: Pain, Mild (Pain Scale 1-3) Last Admin: 02/08/22 10:25 Dose: 650 mg Documented By: RILEY-CARLOS Acetaminophen (Acetaminophen 325 Mg Tablet) 650 mg PO Q4H PRN PRN Reason: Pain, Mild (Pain Scale 1-3) Last Admin: 02/10/22 14:26 Dose: 650 mg Documented By: KIMBERLY Allopurinol (Allopurinol 100 Mg Tablet) 100 mg PO DAILY [facility] Last Admin: 02/10/22 12:49 Dose: Not Given Documented By: KIMBERLY Non-Admin Reason: Nausea Amlodipine Besylate (Amlodipine Besylate 5 Mg Tablet) 5 mg PO DAILY [facility]; Protocol Last Admin: 02/10/22 12:49 Dose: Not Given Documented By: KIMBERLY Non-Admin Reason: Nausea Bisacodyl (Bisacodyl 10 Mg Supp.Rect) 10 mg [place] DAILY PRN PRN Reason: Constipation Docusate Sodium (Docusate Sodium 100 Mg Capsule) 100 mg PO BID [facility] Last Admin: 02/10/22 21:00 Dose: Not Given Documented By: GUIDO Non-Admin Reason: Patient Refused Heparin Sodium (Porcine) (Heparin Sodium,Porcine 5,000 Unit/Ml Vial) 5,000 unit SUBCUT Q12H [facility] Last Admin: 02/11/22 04:57 Dose: Not Given Documented By: GUIDO Non-Admin Reason: Patient Refused Acetaminophen (Ofirmev) 1,000 mg in 100 mls @ 400 mls/hr IV Q6H [facility] Last Infusion: 02/11/22 05:13 Dose: 0 mls/hr Documented By: GUIDO Lidocaine (Lidocaine 4 % Patch Adh..Patch) 1 patch TRANSDERMA DAILY [facility]; Protocol Last Admin: 02/10/22 12:49 Dose: Not Given Documented By: KIMBERLY Non-Admin Reason: Patient Refused Ondansetron HCl (Ondansetron Hcl 4 Mg/2 Ml Vial) 4 mg IVPUSH Q8H PRN PRN Reason: Nausea and Vomiting Last Admin: 02/11/22 05:00 Dose: 4 mg Documented By: GUIDO Sertraline HCl (Sertraline Hcl 100 Mg Tablet) 100 mg PO DAILY [facility] Last Admin: 02/10/22 12:49 Dose: Not Given Documented By: KIMBERLY Non-Admin Reason: Nausea Sodium Chloride (0.9 % Sodium Chloride Flush 3 Ml Syringe) 3 ml IVFLUSH QSHIFT [facility] Last Admin: 02/10/22 21:33 Dose: 3 ml Documented By: GUIDO Labs CBC & Chem 7: 02/11/22 07:51 02/11/22 07:51 Labs: Laboratory Results - last 24 hr 02/10/22 09:23 Anion Gap 21 H Estim Creat Clear Calc 35.3 Estimated GFR 50 Random Glucose 104 Calcium 9.2 Magnesium 1.4 L* Imaging CT scan - abdomen: Attestation: I personally reviewed and interpreted this imaging study as follows: My impression: Resolving SBO/ileus, nonspecific intra-abdominal fluid; gas/stool present in the colon and rectum Radiologist's impression: See report Procedures Date of Service Date of Service: 02/11/22 Progress Note: A&P Assessment and plan (1) Vomiting: Status: Acute (2) Malnutrition: Status: Acute (3) Frailty syndrome in geriatric patient: Status: Acute (4) Hiatal hernia: Status: Acute (5) JONES (acute kidney injury): Status: Acute (6) COPD (chronic obstructive pulmonary disease): Status: Acute (7) Respiratory failure: Status: Acute Plan The case was discussed with Dr. Baeza last night. Consider retesting for C diff since the patient has risk factors. The patient is intermittently having nausea and vomiting of bilious material in spite of the fact that she is passing gas and having bowel movements. I have ordered a CT of the abdomen and pelvis with oral and IV contrast, if her renal function does not preclude IV contrast, to assess the patient's GI function and possible abscess. The patient required at least 6 attempts at nasogastric tube intraoperatively. Given the difficulty placing an NG secondary to her hiatal hernia and anatomy(scoliosis), Interventional Radiology may be required if a nasogastric tube is required. It would be preferable to keep the patient on liquid diet with protein supplementation until she has better bowel function. For now, NPO except for meds. Patient also endorses diarrhea with nausea & vomiting. Prior C diff check on diarrheawas negative. Please advise radiology of the patient's renal impairment; the radiologist may wish to avoid or give a decreased dose of IV contrast. ADDENDUM 02/11/[address] of the abdomen and pelvis shows expected postoperative change with no discrete/definitive abscess or drainable collection. Would continue clear liquids with protein supplementation until the patient has improvement in her bowel function. I have ordered full liquids. I have discontinued her docusate if this is contributing to diarrhea. Time Spent With Patient Time: Total time spent is greater than 50% in coordination of care (as documented) at patient's floor/unit and/or counseling patient: Quality Stroke Does the patient have a stroke diagnosis?: No VTE Prior VTE?: No VTE Risk Level:: Medical - moderate - high VTE Device Contraindication: N/A - Device Ordered VTE Drug Contraindication: Treatment Not Indicated
[2022-02-11 07:46] VITALS: BP 150/84; PULSE 84; RESP 19; TEMP 36.5; O2SAT 99
[2022-02-11 08:21] LABS: Hematocrit 28.5 % (37.0-47.0); Hemoglobin 9.1 g/dl (12.0-16.0); Mean Corpuscular HGB Conc 31.9 g/dl (31.0-35.0); Mean Corpuscular Volume 100.4 fL (80.0-98.0); Mean Platelet Volume 9.4 fL (9.4-12.3); Platelet Count 351 X10*3/uL (160-400); Red Blood Count 2.84 X10*6/uL (4.20-5.50); Red Cell Distribution Width 14.4 % (11.0-16.0)
[2022-02-11] MEDS: Sertraline HCL 100 MG TABLET PO (08:23)
[2022-02-11] MEDS: amLODIPine Besylate 5 MG TABLET PO (08:23)
[2022-02-11] MEDS: allopurinoL 100 MG TABLET PO (08:23)
[2022-02-11] MEDS: Lidocaine 4 % Patch ADH..PATCH 1 PATCH TRANSDERMA (08:23)
[2022-02-11] MEDS: 0.9 % Sodium Chloride Flush 3 ML SYRINGE IVFLUSH ×3 (08:24→22:25)
[2022-02-11 08:36] LABS: Anion Gap 19 (12-20); Blood Urea Nitrogen 29 mg/dL (9-16); Carbon Dioxide 21 mmol/L (22-29); Chloride 105 mmol/L (96-108); Creatinine Clr Calc Pharmacy 38.9; Estimated Glomerular Filt Rate 56; Glucose Random 98 mg/dL (60-115); Magnesium 1.6 mg/dL (1.6-2.6); Potassium 3.5 mmol/L (3.3-5.1); Sodium 141 mmol/L (135-145)
--- NOTE | 2022-02-11 10:19 | MHC.CM.PN ---
Female 81 DX SBO. Patient is NPO for CT. She has developed an Illeus. DC anticipated 2-3 days. [facility]st choice. They have sent referral for MD review. Several STRs are following. [facility] via BLS. Danna Barry is main contact. She will return from [facility] Monday. She was updated via phone call 02/10/22: [facility] is reviewing case.
[2022-02-11] MEDS: iohexoL 350 MG/ML 100 ML INFUS..BTL IV (12:30)
[2022-02-11] MEDS: Barium Sulfate Oral (Berry) 450 ML ORAL.SUSP 900 ML PO (12:31)
--- NOTE | 2022-02-11 14:03 | MHC.CLN ---
F/U PT'S DIET CHANGED TO NPO R/T N/V EPISODES WHEN DIET ADVANCES; RECOMMEND RE-STARTING ENSURE MAX BID TO INCREASE KCALS AND PROMOTE WOUND HEALING SUPPLEMENT PROVIDES 300KCALS, 60G PROTEIN (1.2G/KG) WITH 100% ACCEPTANCE FOLLOWING WITH TEAM
--- NOTE | 2022-02-11 15:02 | PC.NURSE ---
Patient having had 2 episodes of vomiting bileus fluids and nausea. Gen surg aware and patient is NPO. Patient c/o of lower back pain, medicated with IV tylenol at this time. Patient had 1 episode of dirrhea this AM. Patient states I wish i could just sleep .
[2022-02-11 15:45] VITALS: BP 158/78; PULSE 85; RESP 20; TEMP 36.4; O2SAT 98
[2022-02-11] MEDS: Heparin Sodium,Porcine 5,000 UNIT/ML VIAL 5000 UNIT SUBCUT (17:51)
--- NOTE | 2022-02-11 19:06 | PC.NURSE ---
Patient had large loose diarrhea. nausea has gotten better.
[2022-02-11 20:00] VITALS: BP 145/81; PULSE 84; RESP 18; TEMP 37.1; O2SAT 97
[2022-02-12] VITALS: BP 141/77; PULSE 82; RESP 20; TEMP 36.5; O2SAT 98
[2022-02-12] MEDS: ondansetron HCL 4 MG/2 ML VIAL IVPUSH ×2 (04:44→16:27)
[2022-02-12] MEDS: Heparin Sodium,Porcine 5,000 UNIT/ML VIAL 5000 UNIT SUBCUT (05:13)
[2022-02-12] MEDS: Loperamide HCl 2 MG CAPSULE PO ×2 (05:13→08:54)
[2022-02-12 06:05] LABS: CDiff Gene PCR NEGATIVE (Negative)
--- NOTE | 2022-02-12 06:35 | PM.EVENT ---
Event Note Date of Service: 02/12/22 Event Note: patient had multiple episodes of the area. C diff was ruled out. Imodium ordered
[2022-02-12 07:27] VITALS: BP 136/68; PULSE 74; RESP 20; TEMP 36.9; O2SAT 94
[2022-02-12] MEDS: Dextrose 5 % 1,000 ML 50 ML IVCONT (08:52)
--- NOTE | 2022-02-12 08:52 | HO.PM.IMPN ---
Subjective Subjective Date of Service: 02/13/22 Interval History: Seen and examined this morning follow up for SBO pt s/p laparotomy on 02/03 and remained intubated and went to ICU overnight. She was extubated 02/04 and downgraded from the ICU later overnight she has continued to have nausea and vomitting overnight and feels tired and weak, vitals are stable has some back ache that seems better with Tylenol. has requested a CT of the abdomen and pelvis Review of Systems nausea but no abdominal pain diarrhea, some back pain Physical Exam Vital Signs: Vital Signs: Last Vital Signs Temp 98.5 F 02/12/22 07:27 Pulse 74 02/12/22 07:27 Resp 20 02/12/22 07:27 BP 136/68 02/12/22 07:27 Pulse Ox 94 02/12/22 07:27 O2 Del Method 02/12/22 07:27 O2 Flow Rate 2 02/12/22 07:27 FiO2 35 02/04/22 11:22 BMI result Body Mass Index 27.5 Const: Other: General: She alert, oriented to self, place, year Resp: some rhonchi and congestion bilaterally CVS: S1,S2,RRR, some leg edema GI: +BS, minimal tenderness around incision, no distention Skin: No rash MSK: non specific left paraspinal tenderness, Neuro: motor grossly intact, she's moving all extremities equally, Psych: flat affect Objective Data Active Medications Acetaminophen (Acetaminophen Supp 650 Mg Supp.Rect) 650 mg ME Q6H PRN PRN Reason: Pain, Mild (Pain Scale 1-3) Acetaminophen (Acetaminophen 325 Mg Tablet) 650 mg PO Q6H PRN PRN Reason: Pain, Mild (Pain Scale 1-3) Last Admin: 02/08/22 10:25 Dose: 650 mg Documented By: NEENA Acetaminophen (Acetaminophen 325 Mg Tablet) 650 mg PO Q4H PRN PRN Reason: Pain, Mild (Pain Scale 1-3) Last Admin: 02/10/22 14:26 Dose: 650 mg Documented By: KIMBERLY Allopurinol (Allopurinol 100 Mg Tablet) 100 mg PO DAILY [facility] Last Admin: 02/11/22 08:23 Dose: 100 mg Documented By: TABATHA Amlodipine Besylate (Amlodipine Besylate 5 Mg Tablet) 5 mg PO DAILY [facility]; Protocol Last Admin: 02/11/22 08:23 Dose: 5 mg Documented By: TABATHA Bisacodyl (Bisacodyl 10 Mg Supp.Rect) 10 mg ME DAILY PRN PRN Reason: Constipation Heparin Sodium (Porcine) (Heparin Sodium,Porcine 5,000 Unit/Ml Vial) 5,000 unit SUBCUT Q12H [facility] Last Admin: 02/12/22 05:13 Dose: 5,000 unit Documented By: CLEMENTINA Acetaminophen (Ofirmev) 1,000 mg in 100 mls @ 400 mls/hr IV Q6H [facility] Last Infusion: 02/12/22 06:10 Dose: 0 mls/hr Documented By: CLEMENTINA Dextrose (D5w) 1,000 mls @ 50 mls/hr IVCONT .Q20H [facility] Lidocaine (Lidocaine 4 % Patch Adh..Patch) 1 patch TRANSDERMA DAILY [facility]; Protocol Last Admin: 02/11/22 08:23 Dose: 1 patch Documented By: TABATHA Loperamide HCl (Loperamide Hcl 2 Mg Capsule) 2 mg PO Q4H PRN PRN Reason: Diarrhea Ondansetron HCl (Ondansetron Hcl 4 Mg/2 Ml Vial) 4 mg IVPUSH Q8H PRN PRN Reason: Nausea and Vomiting Last Admin: 02/12/22 04:44 Dose: 4 mg Documented By: CLEMENTINA Sertraline HCl (Sertraline Hcl 100 Mg Tablet) 100 mg PO DAILY [facility] Last Admin: 02/11/22 08:23 Dose: 100 mg Documented By: TABATHA Sodium Chloride (0.9 % Sodium Chloride Flush 3 Ml Syringe) [facility] Last Admin: 02/11/22 22:25 Dose: 3 ml Documented By: CLEMENTINA Labs CBC & Chem 7: 02/13/22 08:04 02/13/22 08:04 Labs: Laboratory Results - last 24 hr 02/12/22 05:10 C. difficile Tox B Gene NEGATIVE Assessment and Plan (1) Small bowel obstruction: Status: Acute (2) JONES (acute kidney injury): Status: Acute Plan 81-year-old female with bilateral unspecified mononeuropathy of lower extremity, chronic kidney disease who presents to the emergency department for evaluation of right sided abdominal pain. small-bowel obstruction s/p laparotomy lysis of adhesion require ICU care post op but succesfully extubated the next day and transfered out to med floor and has continued to make progress. NGT has been discontinued and her diet has been advanced from liquid to present regular diet that she doesn't seem to have issue with. Surgery has been following along, She is using incentive spirometry, at this point her pain seems to be at a reasonable level and narcotics have been discontinue to minimize risk of ileus/ constipation. Over the last 24 hours she she has been having nausea and vomitting and not able to tolerate PO, and so made NPO overnight. A CT of abdomen and pelvis is requested this morning. CT showed no acute finding and was reviewed by Dr. Weiss but given ongoing n/v recommends nPO overnight JONES on CKD4--Her creatine has improved to presently 0.96 from a high of 2.44 on 02/05 Acute respiratory failure with hypoxia post op, intuabted after surgery but was rapidly extubated--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 and h/o COPD, and atelectasis--hypoxia has resolved but remains on oxygen at 2 liters. She was given some lasix for possible fluid overload COPD no acute exacerbation continue scheduled breathing treatments and PRN UTI--Treated with IV ceftriaxone, culture negative. While in ICU was also emprically started on Zosyn, Will stop at this time. Neuropathy--pregabalin stopped in ICU, but has restarted Hypomagnesemia- Secondary to GI losses IV replacement, 1.6 today Chronic macrocytic anemia B12 306, folate 12.2 H/H stable chronic back pain h/o spinal stenosis pain control, discussed pain management with patient with RN. In light of not been able to keep oral and changed tyelenol to IV Mood Continue sertraline mild transaminitis hold atorvastatin trend LFTs Ddiarrhea, C dif negative Code status: Full code DVT prophylaxis:? Mechanical compression boots, givien sisginficant anemia post op Continue hospitalization for treatment of small-bowel obstruction and post op care PT is recommending short term rehab when medically ready. Quality Stroke Does the patient have a stroke diagnosis?: No VTE Prior VTE?: No VTE Risk Level:: Medical - moderate - high VTE Device Contraindication: N/A - Device Ordered VTE Drug Contraindication: Treatment Not Indicated
[2022-02-12] MEDS: Lidocaine 4 % Patch ADH..PATCH 1 PATCH TRANSDERMA (08:54)
--- NOTE | 2022-02-12 09:47 | PM.PNGS ---
Subjective Subjective Date of Service: 02/12/22 Interval history: Patient with 2 episodes of emesis early this morning, also with loose diarrhea, C diff negative Physical Exam Vital Signs: Vital Signs: Last Vital Signs Temp 98.5 F 02/12/22 07:27 Pulse 74 02/12/22 07:27 Resp 20 02/12/22 07:27 BP 136/68 02/12/22 07:27 Pulse Ox 94 02/12/22 07:27 O2 Del Method 02/12/22 07:27 O2 Flow Rate 2 02/12/22 07:27 FiO2 35 02/04/22 11:22 BMI result Body Mass Index 27.5 Const: General: tired appearing Resp: Effort & Inspection: normal respiratory effort GI: Other: Incision clean and intact. Incisional tenderness and distension noted. Skin: Other: Warm and dry Objective Data Active Medications Acetaminophen (Acetaminophen Supp 650 Mg Supp.Rect) 650 mg [place] Q6H PRN PRN Reason: Pain, Mild (Pain Scale 1-3) Acetaminophen (Acetaminophen 325 Mg Tablet) 650 mg PO Q6H PRN PRN Reason: Pain, Mild (Pain Scale 1-3) Last Admin: 02/08/22 10:25 Dose: 650 mg Documented By: NEENA Acetaminophen (Acetaminophen 325 Mg Tablet) 650 mg PO Q4H PRN PRN Reason: Pain, Mild (Pain Scale 1-3) Last Admin: 02/10/22 14:26 Dose: 650 mg Documented By: KIMBERLY Allopurinol (Allopurinol 100 Mg Tablet) 100 mg PO DAILY [facility] Last Admin: 02/11/22 08:23 Dose: 100 mg Documented By: TABATHA Amlodipine Besylate (Amlodipine Besylate 5 Mg Tablet) 5 mg PO DAILY [facility]; Protocol Last Admin: 02/11/22 08:23 Dose: 5 mg Documented By: TABATHA Bisacodyl (Bisacodyl 10 Mg Supp.Rect) 10 mg IA DAILY PRN PRN Reason: Constipation Heparin Sodium (Porcine) (Heparin Sodium,Porcine 5,000 Unit/Ml Vial) 5,000 unit SUBCUT Q12H [facility] Last Admin: 02/12/22 05:13 Dose: 5,000 unit Documented By: CLEMENTINA Acetaminophen (Ofirmev) 1,000 mg in 100 mls @ 400 mls/hr IV Q6H [facility] Last Infusion: 02/12/22 06:10 Dose: 0 mls/hr Documented By: CLEMENTINA Dextrose (D5w) 1,000 mls @ 50 mls/hr IVCONT .Q20H [facility] Last Admin: 02/12/22 08:52 Dose: 50 mls/hr Documented By: KIMBERLY Lidocaine (Lidocaine 4 % Patch Adh..Patch) 1 patch TRANSDERMA DAILY [facility]; Protocol Last Admin: 02/12/22 08:54 Dose: 1 patch Documented By: KIMBERLY Loperamide HCl (Loperamide Hcl 2 Mg Capsule) 2 mg PO Q4H PRN PRN Reason: Diarrhea Last Admin: 02/12/22 08:54 Dose: 2 mg Documented By: KIMBERLY Ondansetron HCl (Ondansetron Hcl 4 Mg/2 Ml Vial) 4 mg IVPUSH Q8H PRN PRN Reason: Nausea and Vomiting Last Admin: 02/12/22 04:44 Dose: 4 mg Documented By: CLEMENTINA Sertraline HCl (Sertraline Hcl 100 Mg Tablet) 100 mg PO DAILY [facility] Last Admin: 02/11/22 08:23 Dose: 100 mg Documented By: TABATHA Sodium Chloride (0.9 % Sodium Chloride Flush 3 Ml Syringe) 3 ml IVFLUSH QSHIFT [facility] Last Admin: 02/12/22 09:02 Dose: Not Given Documented By: KIMBERLY Non-Admin Reason: IV Running Labs CBC & Chem 7: 02/11/22 07:51 02/11/22 07:51 Labs: Laboratory Results - last 24 hr 02/12/22 05:10 C. difficile Tox B Gene NEGATIVE Procedures Date of Service Date of Service: 02/12/22 Progress Note: A&P Assessment and plan (1) Vomiting: Status: Acute (2) Malnutrition: Status: Acute (3) Frailty syndrome in geriatric patient: Status: Acute (4) Hiatal hernia: Status: Acute (5) JONES (acute kidney injury): Status: Acute (6) COPD (chronic obstructive pulmonary disease): Status: Acute (7) Respiratory failure: Status: Acute Plan CT abdomen and pelvis reviewed. Appears to show ileus which is not unexpected. No drainable fluid collections. Patient had 2 episodes of vomiting earlier this morning but is passing loose stool daily. C diff tested negative. She was started on Imodium during the night. Would continue NPO and await resolution of ileus. Although NG tube insertion would be ideal, this was difficult even during the procedure due to the patient's anatomy. Time Spent With Patient Time: Total time spent is greater than 50% in coordination of care (as documented) at patient's floor/unit and/or counseling patient: Quality Stroke Does the patient have a stroke diagnosis?: No VTE Prior VTE?: No VTE Risk Level:: Medical - moderate - high VTE Device Contraindication: N/A - Device Ordered VTE Drug Contraindication: Treatment Not Indicated
[2022-02-12] MEDS: Sertraline HCL 100 MG TABLET PO (10:54)
[2022-02-12] MEDS: allopurinoL 100 MG TABLET PO (10:55)
[2022-02-12] MEDS: amLODIPine Besylate 5 MG TABLET PO (10:55)
[2022-02-12 11:29] VITALS: BP 142/80; PULSE 84; RESP 18; TEMP 37.1; O2SAT 98
[2022-02-12 15:30] VITALS: BP 151/73; PULSE 74; RESP 18; TEMP 37.1
[2022-02-12 15:34] LABS: Anion Gap 20 (12-20); Blood Urea Nitrogen 27 mg/dL (9-16); Calcium 8.7 mg/dL (8.4-10.2); Carbon Dioxide 19 mmol/L (22-29); Chloride 103 mmol/L (96-108); Creatinine Clr Calc Pharmacy 36.6; Estimated Glomerular Filt Rate 52; Glucose Random 124 mg/dL (60-115); Potassium 3.1 mmol/L (3.3-5.1); Sodium 139 mmol/L (135-145)
[2022-02-12] MEDS: Magnesium Sulfate/H2O 2 GM/50 ML PIGGYBACK IV ×2 (16:15→23:28)
[2022-02-12] MEDS: Potassium Chloride/H20 10 MEQ/100 ML PIGGYBACK 100 MEQ IV ×2 (16:20→18:48)
[2022-02-12 19:21] LABS: Magnesium 1.4 mg/dL (1.6-2.6)
[2022-02-12 19:33] VITALS: BP 138/63; PULSE 89; RESP 18; TEMP 36.3; O2SAT 99
[2022-02-12] MEDS: Prochlorperazine Edisylate 10 MG/2 ML VIAL 5 MG IVPUSH (22:58)
[2022-02-12] MEDS: 0.9 % Sodium Chloride Flush 3 ML SYRINGE IVFLUSH (23:07)
[2022-02-13] VITALS (7 sets, daily range): BP systolic 114–152; BP diastolic 61–76; PULSE 80–94; RESP 16–20; TEMP 36.2–37.1; O2SAT 90–98
[2022-02-13] MEDS: ondansetron HCL 4 MG/2 ML VIAL IVPUSH (02:09)
--- NOTE | 2022-02-13 02:39 | PC.NURSE ---
Per report from day shift, patient had nausea during the day but was able to hold food down. During this shift, patient unable to be repositioned without becoming nauseous and vomiting. Has had four emesis episodes so far. Patient educated that she may need to be NPO again soon. Hospitalist notified, no new orders at this time.
[2022-02-13] MEDS: Heparin Sodium,Porcine 5,000 UNIT/ML VIAL 5000 UNIT SUBCUT (05:38)
[2022-02-13] MEDS: 0.9 % Sodium Chloride Flush 3 ML SYRINGE IVFLUSH (08:06)
[2022-02-13] MEDS: Lidocaine 4 % Patch ADH..PATCH 1 PATCH TRANSDERMA (08:06)
[2022-02-13 08:23] LABS: Hematocrit 30.7 % (37.0-47.0); Hemoglobin 9.8 g/dl (12.0-16.0); Mean Corpuscular HGB Conc 31.9 g/dl (31.0-35.0); Mean Corpuscular Hemoglobin 30.9 pg (27.0-33.0); Mean Corpuscular Volume 96.8 fL (80.0-98.0); Mean Platelet Volume 9.5 fL (9.4-12.3); Platelet Count 418 X10*3/uL (160-400); Red Blood Count 3.17 X10*6/uL (4.20-5.50); Red Cell Distribution Width 14.1 % (11.0-16.0); White Blood Count 16.8 X10*3/uL (4.8-10.8)
[2022-02-13 08:38] LABS: Anion Gap 20 (12-20); Blood Urea Nitrogen 29 mg/dL (9-16); Calcium 9.1 mg/dL (8.4-10.2); Carbon Dioxide 20 mmol/L (22-29); Chloride 100 mmol/L (96-108); Creatinine Clr Calc Pharmacy 30.2; Estimated Glomerular Filt Rate 42; Glucose Random 114 mg/dL (60-115); Magnesium 2.2 mg/dL (1.6-2.6); Potassium 3.3 mmol/L (3.3-5.1); Sodium 137 mmol/L (135-145)
--- NOTE | 2022-02-13 09:37 | P.PNGS_ITS ---
Subjective Subjective Date of Service: 02/13/22 Interval history: Patient reports increased nausea after eating breakfast this morning. Denies any vomiting this morning but did have vomiting last night. Patient did have a large bowel movement yesterday. Physical Exam Vital Signs: Vital Signs: Last Vital Signs Temp 98.3 F 02/13/22 08:00 Pulse 88 02/13/22 08:00 Resp 18 02/13/22 08:00 BP 124/75 02/13/22 08:00 Pulse Ox 96 02/13/22 08:00 O2 Del Method 02/13/22 08:00 O2 Flow Rate 2 02/13/22 08:00 FiO2 35 02/04/22 11:22 BMI result Body Mass Index 27.5 Const: General: no acute distress and tired appearing Nutritional Yissel earance: well nourished Resp: Effort & Inspection: normal respiratory effort, no audible wheezes, no cough and no respiratory distress GI: Other: Incision clean and intact. Less abdominal distension and no tympany to percussion. Skin: Other: Warm and dry Objective Data Active Medications Acetaminophen (Acetaminophen Supp 650 Mg Supp.Rect) 650 mg [place] Q6H PRN PRN Reason: Pain, Mild (Pain Scale 1-3) Acetaminophen (Acetaminophen 325 Mg Tablet) 650 mg PO Q6H PRN PRN Reason: Pain, Mild (Pain Scale 1-3) Last Admin: 02/08/22 10:25 Dose: 650 mg Documented By: NEENA Acetaminophen (Acetaminophen 325 Mg Tablet) 650 mg PO Q4H PRN PRN Reason: Pain, Mild (Pain Scale 1-3) Last Admin: 02/10/22 14:26 Dose: 650 mg Documented By: KIMBERLY Allopurinol (Allopurinol 100 Mg Tablet) 100 mg PO DAILY [facility] Last Admin: 02/13/22 09:07 Dose: Not Given Documented By: KIMBERLY Non-Admin Reason: Physician Held Med Amlodipine Besylate (Amlodipine Besylate 5 Mg Tablet) 5 mg PO DAILY [facility]; Protocol Last Admin: 02/13/22 09:07 Dose: Not Given Documented By: KIMBERLY Non-Admin Reason: Physician Held Med Bisacodyl (Bisacodyl 10 Mg Supp.Rect) 10 mg TN DAILY PRN PRN Reason: Constipation Heparin Sodium (Porcine) (Heparin Sodium,Porcine 5,000 Unit/Ml Vial) 5,000 unit SUBCUT Q12H [facility] Last Admin: 02/13/22 05:38 Dose: 5,000 unit Documented By: CLEMENTINA Acetaminophen (Ofirmev) 1,000 mg in 100 mls @ 400 mls/hr IV Q6H [facility] Last Infusion: 02/13/22 05:57 Dose: 0 mls/hr Documented By: CLEMENTINA Lidocaine (Lidocaine 4 % Patch Adh..Patch) 1 patch TRANSDERMA DAILY [facility]; Protocol Last Admin: 02/13/22 08:06 Dose: 1 patch Documented By: KIMBERLY Loperamide HCl (Loperamide Hcl 2 Mg Capsule) 2 mg PO Q4H PRN PRN Reason: Diarrhea Last Admin: 02/12/22 08:54 Dose: 2 mg Documented By: KIMBERLY Ondansetron HCl (Ondansetron Hcl 4 Mg/2 Ml Vial) 4 mg IVPUSH Q8H PRN PRN Reason: Nausea and Vomiting Last Admin: 02/13/22 02:09 Dose: 4 mg Documented By: CLEMENTINA Sertraline HCl (Sertraline Hcl 100 Mg Tablet) 100 mg PO DAILY [facility] Last Admin: 02/13/22 09:07 Dose: Not Given Documented By: KIMBERLY Non-Admin Reason: Physician Held Med Sodium Chloride (0.9 % Sodium Chloride Flush 3 Ml Syringe) 3 ml IVFLUSH QSHIFT [facility] Last Admin: 02/13/22 08:06 Dose: 3 ml Documented By: KIMBERLY Labs CBC & Chem 7: 02/13/22 08:04 02/13/22 08:04 Labs: Laboratory Results - last 24 hr 02/12/22 02/13/22 02/13/22 14:38 08:04 08:04 MCV 96.8 MCH 30.9 MCHC 31.9 RDW 14.1 Plt Count 418 H MPV 9.5 Absolute Nucleated RBC 0.000 Nucleated RBC % (auto) 0.0 Anion Gap 20 20 Estim Creat Clear Calc 36.6 30.2 Estimated GFR 52 42 Random Glucose 124 H 114 Calcium 8.7 9.1 Magnesium 1.4 L* 2.2 Procedures Date of Service Date of Service: 02/13/22 Progress Note: A&P Assessment and plan (1) Vomiting: Status: Acute (2) Small bowel obstruction: Status: Acute Plan Overall patient is improved with decreased abdominal distension. She is now passing flatus in passing large bowel movements. On examination she is soft and nondistended, mild incisional tenderness. Continue with current diet and monitor abdominal examination. Time Spent With Patient Time: Total time spent is greater than 50% in coordination of care (as documented) at patient's floor/unit and/or counseling patient: Quality Stroke Does the patient have a stroke diagnosis?: No VTE Prior VTE?: No VTE Risk Level:: Medical - moderate - high VTE Device Contraindication: N/A - Device Ordered VTE Drug Contraindication: Treatment Not Indicated
--- NOTE | 2022-02-13 11:01 | HO.PM.IMPN ---
Subjective Subjective Date of Service: 02/14/22 Interval History: Follow up for SBO pt s/p laparotomy on 02/03 and remained intubated and went to ICU overnight. She was extubated 02/04 and downgraded from the ICU later overnight She did well with oral intake yesterday morning but in the afternoon, she started vomitting again and has continued to do so throughout the night into this morning. She's again NPO but insistingon eating, there is no change in her vitals, no fever. Potassium and magnesium have corrected. WBC count is high but no fever. There is also persistent diarrhea Review of Systems +Nausea, vomitting and diarrhea No fever or chills +Back ache no sob, cough Physical Exam Vital Signs: Vital Signs: Last Vital Signs Temp 98.3 F 02/13/22 08:00 Pulse 88 02/13/22 08:00 Resp 18 02/13/22 08:00 BP 124/75 02/13/22 08:00 Pulse Ox 96 02/13/22 08:00 O2 Del Method 02/13/22 08:00 O2 Flow Rate 2 02/13/22 08:00 FiO2 35 02/04/22 11:22 BMI result Const: Other: General: alert, oriented to self, place, year, looks frail and tired Resp: rhonchi, no wheeze or rales and no accessory muscle use CVS: S1,S2,RRR, 1+ leg edema gertrudis GI: +BS, NT, decrease BS Skin: No rash MSK: non tenderness on spine Neuro:? motor grossly intact,? she's moving all extremities equally, Psych: flat affect Objective Data Active Medications Acetaminophen (Acetaminophen Supp 650 Mg Supp.Rect) 650 mg [place] Q6H PRN PRN Reason: Pain, Mild (Pain Scale 1-3) Acetaminophen (Acetaminophen 325 Mg Tablet) 650 mg PO Q6H PRN PRN Reason: Pain, Mild (Pain Scale 1-3) Last Admin: 02/08/22 10:25 Dose: 650 mg Documented By: RILEY-RIVLA Acetaminophen (Acetaminophen 325 Mg Tablet) 650 mg PO Q4H PRN PRN Reason: Pain, Mild (Pain Scale 1-3) Last Admin: 02/10/22 14:26 Dose: 650 mg Documented By: KIMBERLY Allopurinol (Allopurinol 100 Mg Tablet) 100 mg PO DAILY [facility] Last Admin: 02/13/22 09:07 Dose: Not Given Documented By: KIMBERLY Non-Admin Reason: Physician Held Med Amlodipine Besylate (Amlodipine Besylate 5 Mg Tablet) 5 mg PO DAILY [facility]; Protocol Last Admin: 02/13/22 09:07 Dose: Not Given Documented By: KIMBERLY Non-Admin Reason: Physician Held Med Bisacodyl (Bisacodyl 10 Mg Supp.Rect) 10 mg [place] DAILY PRN PRN Reason: Constipation Heparin Sodium (Porcine) (Heparin Sodium,Porcine 5,000 Unit/Ml Vial) 5,000 unit SUBCUT Q12H [facility] Last Admin: 02/13/22 05:38 Dose: 5,000 unit Documented By: CLEMENTINA Acetaminophen ([facility]) 1,000 mg in 100 mls @ 400 mls/hr IV Q6H [facility] Last Infusion: 02/13/22 05:57 Dose: 0 mls/hr Documented By: CLEMENTINA Lidocaine (Lidocaine 4 % Patch Adh..Patch) 1 patch TRANSDERMA DAILY [facility]; Protocol Last Admin: 02/13/22 08:06 Dose: 1 patch Documented By: KIMBERLY Loperamide HCl (Loperamide Hcl 2 Mg Capsule) 2 mg PO Q4H PRN PRN Reason: Diarrhea Last Admin: 02/12/22 08:54 Dose: 2 mg Documented By: KIMBERLY Ondansetron HCl (Ondansetron Hcl 4 Mg/2 Ml Vial) 4 mg IVPUSH Q8H PRN PRN Reason: Nausea and Vomiting Last Admin: 02/13/22 02:09 Dose: 4 mg Documented By: CLEMENTINA Sertraline HCl (Sertraline Hcl 100 Mg Tablet) 100 mg PO DAILY [facility] Last Admin: 02/13/22 09:07 Dose: Not Given Documented By: KIMBERLY Non-Admin Reason: Physician Held Med Sodium Chloride (0.9 % Sodium Chloride Flush 3 Ml Syringe) 3 ml IVFLUSH QSHIFT [facility] Last Admin: 02/13/22 08:06 Dose: 3 ml Documented By: KIMBERLY Labs CBC & Chem 7: 02/14/22 05:54 02/14/22 05:54 Labs: Laboratory Results - last 24 hr 02/12/22 02/13/22 02/13/22 14:38 08:04 08:04 MCV 96.8 MCH 30.9 MCHC 31.9 RDW 14.1 Plt Count 418 H MPV 9.5 Absolute Nucleated RBC 0.000 Nucleated RBC % (auto) 0.0 Anion Gap 20 20 Estim Creat Clear Calc 36.6 30.2 Estimated GFR 52 42 Random Glucose 124 H 114 Calcium 8.7 9.1 Magnesium 1.4 L* 2.2 Assessment and Plan (1) Small bowel obstruction: Status: Acute (2) JONES (acute kidney injury): Status: Acute Plan 81-year-old female with bilateral unspecified mononeuropathy of lower extremity, chronic kidney, spinal stenosis, neuropathy who presents to the emergency department for evaluation of right sided abdominal pain on 02/01/22 and noted to have high grade SBO, she underwent laparotomy on 02/[address] Weiss and remained intubated and went to ICU overnight. She was extubated 02/04 and latertrasfed to medical floor where she has continued to have issues with nausea, vomitting, malnutrition, electrolytes abnormalities . #Small-bowel obstruction s/p laparotomy lysis of adhesion, she required ICU care post op but succesfully extubated and shortly thereafter transfered out to med floor with peristent issues of nausea, vomitting. . NGT which was said to be very difficulty to insert was ultimately removed and there has been multiple attempts at advancing her diet but continues to have nausea and vomitting. She has had multiple imagings of abdomen including CT and x-ray of abdomen showing no acute finding but post operative changes. She continue to have N/V since yesterday and have had to resort to NPO yet again. Will maintain IVF at this time and will discuss possible TPN with surgical team tomorrow if she's still not able tolerate orals. Additionally, we may need to repeat a scan of the abdomen/pelvis in light of WBC rising. JONES on CKD4--Her creatine has improved to presently 1.24 from a high of 2.44 on 02/05, will continue to monitor Acute respiratory failure with hypoxia post op, she was intuabted after surgery but was rapidly extubated--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 and h/o COPD, and atelectasis--hypoxia has resolved but remains on oxygen at 2 liters. She was given some lasix for possible fluid overload COPD no acute exacerbation continue scheduled breathing treatments and PRN UTI--Treated with IV ceftriaxone, culture negative. While in ICU was also emprically started on Zosyn, Will stop at this time. 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 this may be likely reactive process from ongoing nausea/vomitting, will continue to closely monitor, at any signs of fever/chills or other finding suggestive of sepsis would do cultures and start broad spec antibiotics. Repeat tomorrow Code status: Full code DVT prophylaxis:? Mechanical compression boots, givien sisginficant anemia post op Continue hospitalization for treatment of small-bowel obstruction and post op care PT is recommending short term rehab when medically ready. Quality Stroke Does the patient have a stroke diagnosis?: No VTE Prior VTE?: No VTE Risk Level:: Medical - moderate - high VTE Device Contraindication: N/A - Device Ordered VTE Drug Contraindication: Treatment Not Indicated
[2022-02-13 13:11] LABS: Alanine Aminotransferase 15 U/L (0-31); Albumin Level 3.3 g/dL (3.5-5.0); Alkaline Phosphatase 84 U/L (39-117); Aspartate Amino Transferase 12 U/L (5-31); Bilirubin Direct < 0.2 mg/dL (0.0-0.5); Bilirubin Total < 0.2 mg/dL (0.0-1.0); Total Protein 5.9 g/dL (6.5-8.0)
[2022-02-13] MEDS: Dextrose 5 % 1,000 ML 80 ML IVCONT (15:53)
[2022-02-13] MEDS: Loperamide HCl 2 MG CAPSULE PO (21:42)
[2022-02-14] VITALS (8 sets, daily range): BP systolic 120–128; BP diastolic 64–84; PULSE 71–89; RESP 16–18; TEMP 35.7–37; O2SAT 95–98
[2022-02-14] MEDS: ondansetron HCL 4 MG/2 ML VIAL IVPUSH (00:22)
[2022-02-14] MEDS: Dextrose 5 % 1,000 ML 80 ML IVCONT ×2 (04:31→15:06)
[2022-02-14] MEDS: Heparin Sodium,Porcine 5,000 UNIT/ML VIAL 5000 UNIT SUBCUT ×2 (05:46→18:10)
[2022-02-14 07:02] LABS: Hematocrit 31.7 % (37.0-47.0); Hemoglobin 9.9 g/dl (12.0-16.0); Mean Corpuscular HGB Conc 31.2 g/dl (31.0-35.0); Mean Corpuscular Hemoglobin 31.2 pg (27.0-33.0); Mean Platelet Volume 9.8 fL (9.4-12.3); Platelet Count 327 X10*3/uL (160-400); Red Blood Count 3.17 X10*6/uL (4.20-5.50); Red Cell Distribution Width 14.1 % (11.0-16.0); White Blood Count 10.5 X10*3/uL (4.8-10.8)
--- NOTE | 2022-02-14 07:31 | P.PNGS_ITS ---
Subjective Subjective Date of Service: 02/14/22 Interval history: The patient is continuing to endorse nausea, vomiting and diarrhea. She has been cycled on and off diet. Her abdominal x-ray shows nonspecific pattern and the etiology for her ongoing symptoms are unclear. She may have a resolving ileus or a partial bowel obstruction postoperatively. Physical Exam Vital Signs: Vital Signs: Last Vital Signs Temp 98.3 F 02/14/22 03:24 Pulse 80 02/14/22 03:24 Resp 16 02/14/22 03:24 BP 121/67 02/14/22 03:24 Pulse Ox 96 02/14/22 03:24 O2 Del Method 02/14/22 03:24 O2 Flow Rate 2 02/14/22 03:24 FiO2 35 02/04/22 11:22 BMI result Body Mass Index 27.5 Abdominal incision is well healed with no erythema or drainage Abdomen is soft with appropriate minimal discomfort, no tenderness or peritoneal sign. Objective Data Active Medications Acetaminophen (Acetaminophen Supp 650 Mg Supp.Rect) 650 mg [place] Q6H PRN PRN Reason: Pain, Mild (Pain Scale 1-3) Acetaminophen (Acetaminophen 325 Mg Tablet) 650 mg PO Q6H PRN PRN Reason: Pain, Mild (Pain Scale 1-3) Last Admin: 02/08/22 10:25 Dose: 650 mg Documented By: NEENA Allopurinol (Allopurinol 100 Mg Tablet) 100 mg PO DAILY [facility] Last Admin: 02/13/22 09:07 Dose: Not Given Documented By: KIMBERLY Non-Admin Reason: Physician Held Med Amlodipine Besylate (Amlodipine Besylate 5 Mg Tablet) 5 mg PO DAILY [facility]; P rotocol Last Admin: 02/13/22 09:07 Dose: Not Given Documented By: KIMBERLY Non-Admin Reason: Physician Held Med Bisacodyl (Bisacodyl 10 Mg Supp.Rect) 10 mg [place] DAILY PRN PRN Reason: Constipation Heparin Sodium (Porcine) (Heparin Sodium,Porcine 5,000 Unit/Ml Vial) 5,000 unit SUBCUT Q12H [facility] Last Admin: 02/14/22 05:46 Dose: 5,000 unit Documented By: SHRAVAN Acetaminophen (Ofirmev) 1,000 mg in 100 mls @ 400 mls/hr IV Q6H PRN PRN Reason: Pain, Severe (Pain Scale 7-10) Last Infusion: 02/14/22 05:18 Dose: 0 mls/hr Documented By: SHRAVAN Dextrose (D5w) 1,000 mls @ 80 mls/hr IVCONT .[id number] [facility] Last Admin: 02/14/22 04:31 Dose: 80 mls/hr Documented By: SHRAVAN Lidocaine (Lidocaine 4 % Patch Adh..Patch) 1 patch TRANSDERMA DAILY [facility]; Protocol Last Admin: 02/13/22 08:06 Dose: 1 patch Documented By: KIMBERLY Loperamide HCl (Loperamide Hcl 2 Mg Capsule) 2 mg PO Q4H PRN PRN Reason: Diarrhea Last Admin: 02/13/22 21:42 Dose: 2 mg Documented By: SHRAVAN Ondansetron HCl (Ondansetron Hcl 4 Mg/2 Ml Vial) 4 mg IVPUSH Q8H PRN PRN Reason: Nausea and Vomiting Last Admin: 02/14/22 00:22 Dose: 4 mg Documented By: SHRAVAN Sertraline HCl (Sertraline Hcl 100 Mg Tablet) 100 mg PO DAILY [facility] Last Admin: 02/13/22 09:07 Dose: Not Given Documented By: KIMBERLY Non-Admin Reason: Physician Held Med Sodium Chloride (0.9 % Sodium Chloride Flush 3 Ml Syringe) 3 ml IVFLUSH QSHIFT [facility] Last Admin: 02/13/22 23:44 Dose: Not Given Documented By: SHRAVAN Non-Admin Reason: IV Running Labs CBC & Chem 7: 02/14/22 05:54 02/13/22 08:04 Labs: Laboratory Results - last 24 hr 02/13/22 02/13/22 02/14/22 08:04 08:04 05:54 MCV 96.8 100.0 H MCH 30.9 31.2 MCHC 31.9 31.2 RDW 14.1 14.1 Plt Count 418 H 327 MPV 9.5 9.8 Absolute Nucleated RBC 0.000 0.000 Nucleated RBC % (auto) 0.0 0.0 Anion Gap 20 Estim Creat Clear Calc 30.2 Estimated GFR 42 Random Glucose 114 Calcium 9.1 Magnesium 2.2 Total Bilirubin < 0.2 Direct Bilirubin < 0.2 AST 12 D ALT 15 Alkaline Phosphatase 84 D Total Protein 5.9 L Albumin 3.3 L 02/14/22 05:54 MCV MCH MCHC RDW Plt Count MPV Absolute Nucleated RBC Nucleated RBC % (auto) Anion Gap Estim Creat Clear Calc Estimated GFR Random Glucose Calcium Magnesium 2.0 Total Bilirubin Direct Bilirubin AST ALT Alkaline Phosphatase Total Protein Albumin Procedures Date of Service Date of Service: 02/14/22 Progress Note: A&P Assessment and plan (1) Vomiting: Status: Acute (2) Malnutrition: Status: Acute (3) Frailty syndrome in geriatric patient: Status: Acute (4) Diarrhea: Status: Acute (5) Small bowel obstruction: Status: Acute Plan I have placed a consult to Gastroenterology regarding this cyclical nausea and vomiting and ongoing diarrhea in the face of a postoperative bowel obstruction with a discrete obstructing point that was clearly lysed. May need to consider TPN since she is not making progress with bowel activity. Time Spent With Patient Time: Total time spent is greater than 50% in coordination of care (as documented) at patient's floor/unit and/or counseling patient: Quality Stroke Does the patient have a stroke diagnosis?: No VTE Prior VTE?: No VTE Risk Level:: Medical - moderate - high VTE Device Contraindication: N/A - Device Ordered VTE Drug Contraindication: Treatment Not Indicated
[2022-02-14 07:34] LABS: Anion Gap 21 (12-20); Blood Urea Nitrogen 33 mg/dL (9-16); Calcium 8.8 mg/dL (8.4-10.2); Carbon Dioxide 19 mmol/L (22-29); Chloride 101 mmol/L (96-108); Creatinine Clr Calc Pharmacy 27.7; Estimated Glomerular Filt Rate 38; Glucose Random 112 mg/dL (60-115); Potassium 3.6 mmol/L (3.3-5.1); Sodium 137 mmol/L (135-145)
[2022-02-14] MEDS: Lidocaine 4 % Patch ADH..PATCH 1 PATCH TRANSDERMA (08:43)
--- NOTE | 2022-02-14 08:54 | P.CDIC_ITS ---
CDI Concurrent Query Documentation Clarification: PHYSICIAN'S DOCUMENTATION REQUEST Date of Query: 02/14/22 0855 Patient Name: Nova Wei Admit Date: 02/01/22 Dear Doctor, A review of the medical record indicates additional documentation may be indicated. Please review below and update the documentation accordingly. Clinical Indicators: Risk Factors/Clinical Indicators/Treatments Wound care notes 02/08 - Pressure injury Stage II buttock Foam dressing applied, dry and intact, reposition every 2 hours. Barrier cream. Based on the above, could you please provide, in the Progress Notes, further information regarding the ulcer/wound: * If a pressure ulcer, please also include the stage* of the ulcer: * Stage 1 - Skin intact, non-blanchable redness * Stage 2 - Partial thickness loss of dermis, includes intact or open blister * Stage 3 - Full thickness tissue not including bone, tendon, or muscle * Other * Unable to determine *Source: National Pressure Ulcer Advisory Panel (NPUAP) Use of terms such as suspected, likely, concern for, or probable (associated with a specific diagnosis that is being evaluated, monitored, or treated as if it exists) are acceptable and can be coded in the inpatient setting, when documented at the time of discharge. Thank you, Barbara rBavo [facility], CDIS Extension: [phone] Please use your independent medical judgment in providing your response. THIS QUERY IS PART OF THE PERMANENT MEDICAL RECORD Provider Response: Other Other Diagnosis: stage 2 pressure ulcer buttock
--- NOTE | 2022-02-14 13:52 | P.PNIM_ITS ---
Subjective Subjective Date of Service: 02/14/22 Interval History: Follow up for SBO pt s/p laparotomy and lysis of adhesion on 02/[address] Weiss and was intubated afterwards and went to ICU and extubated the next day and ultimately was transfered to Med floor. Later NGT was removed on was started on liquid diet on 02/07 but has not been consistently tolerating diet going between NPO and diet attemps on multiple occasion due to peristent nauea, vomitting and diarrhea.. She has had multiple imaging of abdomen and pelvis without evidence of acute obstruction or abscess. Overnight again there was report of 6 episodes of diarrhea, 2 emesis with no abdominal pain. Pt seen, examined with pt RNs and Later discussion with patient, Dr. Deras and her daughter at the bedside where Dr. Weiss explain everything to them and next proposed course of action including getting small bowel follow through, and possibly picc and start TPN..doesn't want xray and does not want a picc line at this time and will take risk to attempt liquid diet again Review of Systems -Nausea. +vomitting and diarrhea overnight No fever or chills +Back ache is better no sob, cough Physical Exam Vital Signs: Vital Signs: Last Vital Signs Temp 98.6 F 02/14/22 11:39 Pulse 80 02/14/22 11:39 Resp 16 02/14/22 11:39 BP 121/72 02/14/22 11:39 Pulse Ox 98 02/14/22 11:39 O2 Del Method 02/14/22 11:39 O2 Flow Rate 2 02/14/22 11:39 FiO2 35 02/04/22 11:22 BMI result Body Mass Index 27.5 Const: Other: General: alert, oriented to self, place, year, looks frail but very much with it Resp: rhonchi, no wheeze or rales and no accessory muscle use CVS: S1,S2,RRR, 1+ leg edema gertrudis, cool extremities (chronic) GI: NT, decrease BS Skin: No rash, stage pressure ulcer at buttock --see nursing for detail MSK: non tenderness on spine Neuro:? motor grossly intact,? she's moving all extremities equally, Psych: flat affect Objective Data Active Medications Acetaminophen (Acetaminophen Supp 650 Mg Supp.Rect) 650 mg [place] Q6H PRN PRN Reason: Pain, Mild (Pain Scale 1-3) Acetaminophen (Acetaminophen 325 Mg Tablet) 650 mg PO Q6H PRN PRN Reason: Pain, Mild (Pain Scale 1-3) Last Admin: 02/08/22 10:25 Dose: 650 mg Documented By: NEENA Allopurinol (Allopurinol 100 Mg Tablet) 100 mg PO DAILY [facility] Last Admin: 02/14/22 08:27 Dose: Not Given Documented By: JANET Non-Admin Reason: NPO Amlodipine Besylate (Amlodipine Besylate 5 Mg Tablet) 5 mg PO DAILY [facility]; Protocol Last Admin: 02/14/22 08:27 Dose: Not Given Documented By: JANET Non-Admin Reason: NPO Bisacodyl (Bisacodyl 10 Mg Supp.Rect) 10 mg [place] DAILY PRN PRN Reason: Constipation Heparin Sodium (Porcine) (Heparin Sodium,Porcine 5,000 Unit/Ml Vial) 5,000 unit SUBCUT Q12H [facility] Last Admin: 02/14/22 05:46 Dose: 5,000 unit Documented By: SHRAVAN Acetaminophen (Ofirmev) 1,000 mg in 100 mls @ 400 mls/hr IV Q6H PRN PRN Reason: Pain, Severe (Pain Scale 7-10) Last Infusion: 02/14/22 05:18 Dose: 0 mls/hr Documented By: SHRAVAN Dextrose (D5w) 1,000 mls @ 80 mls/hr IVCONT .[id number] [facility] Last Admin: 02/14/22 04:31 Dose: 80 mls/hr Documented By: SHRAVAN Lidocaine (Lidocaine 4 % Patch Adh..Patch) 1 patch TRANSDERMA DAILY [facility]; Protocol Last Admin: 02/14/22 08:43 Dose: 1 patch Documented By: JANET Loperamide HCl (Loperamide Hcl 2 Mg Capsule) 2 mg PO Q4H PRN PRN Reason: Diarrhea Last Admin: 02/13/22 21:42 Dose: 2 mg Documented By: SHRAVAN Ondansetron HCl (Ondansetron Hcl 4 Mg/2 Ml Vial) 4 mg IVPUSH Q8H PRN PRN Reason: Nausea and Vomiting Last Admin: 02/14/22 00:22 Dose: 4 mg Documented By: HO.FOSTEKR Sertraline HCl (Sertraline Hcl 100 Mg Tablet) 100 mg PO DAILY [facility] Last Admin: 02/14/22 08:27 Dose: Not Given Documented By: JANET Non-Admin Reason: NPO Sodium Chloride (0.9 % Sodium Chloride Flush 3 Ml Syringe) 3 ml IVFLUSH QSHIFT [facility] Last Admin: 02/14/22 08:28 Dose: Not Given Documented By: JANET Non-Admin Reason: IV Running Labs CBC & Chem 7: 02/14/22 05:54 02/14/22 05:54 Labs: Laboratory Results - last 24 hr 02/14/22 02/14/22 02/14/22 05:54 05:54 05:54 MCV 100.0 H MCH 31.2 MCHC 31.2 RDW 14.1 Plt Count 327 MPV 9.8 Absolute Nucleated RBC 0.000 Nucleated RBC % (auto) 0.0 Anion Gap 21 H Estim Creat Clear Calc 27.7 Estimated GFR 38 Random Glucose 112 Calcium 8.8 Magnesium 2.0 Assessment and Plan (1) Small bowel obstruction: Status: Acute (2) JONES (acute kidney injury): Status: Acute Plan 81-year-old female with bilateral unspecified mononeuropathy of lower extremity, chronic kidney, spinal stenosis, neuropathy who presents to the emergency department for evaluation of right sided abdominal pain on 02/01/22 and noted to have high grade SBO, she underwent laparotomy on 02/[address] Weiss and remained intubated and went to ICU overnight. She was extubated 02/04 and latertrasfed to medical floor where she has continued to have issues with nausea, vomitting, malnutrition, electrolytes abnormalities . #Small-bowel obstruction s/p laparotomy lysis of adhesion on 02/[address] Weiss. Post surgery was intubated and went to ICU and was extubated and transfered out the next day with NGT in place (as said to be very difficulty to insert) -NGT removed 02/07 and was started on liquid diet but since then has suffered nausea, vomitting, and diarrhea on multiple occasion. Xray of abomen on 02/10 and 02/13 show no evidence of obstruction possibly ileus. CT 02/11 no abscess, no bowel obstruction and again possible ileus. She has tested negative for Cdif negative on 02/09 and 02/12, WBC was high on 02/13 (16) but now normal at 10 without antibiotics. As of today 02/14 due to persistent nausea and vomitting overnight. Dr. Weiss proposed GI consult (pending), Small bowel follow through and a PICC line for TPN, she of a sound mind at that time in the presence of her daughter Asha, RN and myself decline the xray or TPN and instead wanted to try liquid diet again (ordered) and would reconsider imaging, and or TPN if nausea/vomitting return. Her daughter did not object to htis. 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 Daily check and if worsening consider nephrology consult. 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 She was given some lasix for possible fluid overload COPD no acute exacerbation continue scheduled breathing treatments and PRN UTI--Treated with IV ceftriaxone, culture negative. While in ICU was also emprically started on Zosyn but was later stopped Neuropathy--pregabalin when tolerate oral Hypomagnesemia--due to diarrhea, replace as needed, HypOkalemia--Corrected, replace as needed Chronic macrocytic anemia B12 306, folate 12.2 H/H stable chronic back pain h/o spinal stenosis She has been reluctant to take opioid but seem to have been doing ok with Tyelenol for pain control. She does not want opioid for pain Mild to moderate protein calory malnutrition--nutrition following, if tolerate diet, Ensure will be added and may need TPN as stated above Mood Continue sertraline mild transaminitis holding atorvastatin LFTs were normal on 02/13 Ddiarrhea, C dif negative x 2 on 02/09 and 02/12 Leukocytosis on 02/13 no fever, no tachycardia, no cough and abdominal pain and clinically looks well, no erythema at surgical site.. likely reactive and back on normal 02/14 [facility] intervention Code status: Full code DVT prophylaxis:? Mechanical compression boots and heparin Continue hospitalization for treatment of small-bowel obstruction and post op care, ongoing vomitting and diarrhea, electrolytes abnormalities, need for iV and potention for tpn if does't tolerate diet. Plan was discussed with azeem rasmussen with Dr. Weiss, and RNs at bedside. PT is recommending short term rehab when medically ready. Quality Stroke Does the patient have a stroke diagnosis?: No VTE Prior VTE?: No VTE Risk Level:: Medical - moderate - high VTE Device Contraindication: N/A - Device Ordered VTE Drug Contraindication: Treatment Not Indicated
--- NOTE | 2022-02-14 14:00 | MHC.CLN ---
F/U PT'S DIET ADVANCED TO C/L AT REQUEST OF PT PT REPORTED MULTIPLE N/V EPISODES RECOMMEND ADDING ENSURE CLEAR BID TO INCREASE KCALS AND PROMOTE WOUND HEALING IF PT CAN TOLERATE SUPPLEMENT PROVIDES 480KCALS, 16G PROTEIN (1.2G/KG) WITH 100% ACCEPTANCE MONITOR PO INTAKE CLOSELY FOLLOWING WITH TEAM CONSULT RD IF TPN NEEDED
[2022-02-14] MEDS: 0.9 % Sodium Chloride Flush 3 ML SYRINGE IVFLUSH (15:11)
--- NOTE | 2022-02-14 15:58 | PM.EVENT ---
Event Note Date of Service: 02/14/22 Event Note: GI consult dictated pt seen and examined, labs and xrays reviewed picture seems most c/w postop ileus stool testing ordered to r/o any infectious cause
--- NOTE | 2022-02-14 16:17 | MHC.CM.PN ---
Per MD rounds no discharge today. Patient feeling nauseous, diarrhea x2. [facility] for rehab. Updated clinical information has been sent to the Acute rehabs. [facility] is following as well as [facility]. STR referrals were also sent an update. Met with theodore Barry in patients room. She requested the addition of an alternate HCP. A HCP was documented with an alternate.
[2022-02-14] MEDS: Omeprazole 20 MG CAPSULE.DR PO (16:46)
[2022-02-14 16:50] LABS: Anion Gap 18 (12-20); Blood Urea Nitrogen 33 mg/dL (9-16); Calcium 8.4 mg/dL (8.4-10.2); Carbon Dioxide 21 mmol/L (22-29); Chloride 100 mmol/L (96-108); Creatinine Clr Calc Pharmacy 28.6; Estimated Glomerular Filt Rate 39; Glucose Random 111 mg/dL (60-115); Potassium 3.6 mmol/L (3.3-5.1); Sodium 135 mmol/L (135-145)
[2022-02-15] MEDS: Dextrose 5 % 1,000 ML 80 ML IVCONT (01:28)
--- NOTE | 2022-02-15 02:51 | CONS_ITS ---
DATE OF SERVICE: 02/14/2022 REFERRING PHYSICIAN: Alonzo eWiss MD REASON FOR CONSULTATION: Nausea, vomiting, and diarrhea following laparotomy for small-bowel obstruction. HISTORY OF PRESENT ILLNESS: The patient is a pleasant 81-year-old woman, who was admitted to the hospital on February 01 with complaints of abdominal pain, diarrhea, and vomiting, which began on the day of admission. Prior to that, she had not had bowel movement for [address] scanning initially showed a probable small-bowel obstruction and she ultimately went to surgery on February 03, at which time an adhesive band to the terminal ileum was lysed and endoscopy was performed because of difficulty placing a nasogastric tube. Postoperatively, she has had episodic nausea and vomiting, usually after eating with diarrhea, not always associated with eating. She has had no fevers or chills. She has been treated with antiemetics and antidiarrheals and underwent a course of clear liquids today, which so far she has kept down. Followup radiographic studies have been obtained and are reviewed. These are interpreted as showing an ileus with no definite obstructive point. PAST MEDICAL HISTORY: 1. Small-bowel obstruction as above. 2. Chronic kidney disease. 3. Anxiety. 4. Gout. 5. Peripheral neuropathy. 6. Hysterectomy. 7. Right hip replacement. CURRENT MEDICATIONS: Her current medication list is reviewed in the chart. ALLERGIES: THERE ARE NONE REPORTED. FAMILY HISTORY: This is reviewed with the patient and is negative for inflammatory bowel disease. She did not have swallowing problems prior to the procedure and describes undergoing endoscopy and colonoscopy in the past in [place]. SOCIAL HISTORY: There is no current tobacco, alcohol, or substance abuse. REVIEW OF SYSTEMS: SKIN: No pruritus. HEENT: Negative. CARDIOPULMONARY: No shortness of breath or chest pain. GASTROINTESTINAL: As above. GENITOURINARY: Negative. NEUROPSYCHIATRIC: Negative. PHYSICAL EXAMINATION: GENERAL: Shows a pleasant female sitting in a chair. VITAL SIGNS: Reviewed in electronic medical record and are stable. SKIN: Anicteric. HEENT: Shows no scleral icterus. NECK: Without lymphadenopathy or thyromegaly. LUNGS: Clear. HEART: Shows regular rate and rhythm. S1 and S2. No murmur. ABDOMEN: Soft without focal masses or tenderness. Bowel sounds are present. No organomegaly is noted. EXTREMITIES: Without edema. Laboratory data and scans are reviewed. IMPRESSION: Nausea, vomiting, and diarrhea. This appears most consistent with postoperative ileus, which would be the most likely diagnosis based on her recent surgery, relative immobility, narcotic pain medication use, and anesthesia exposure. Other possible causes for nausea and vomiting such as a viral gastroenteritis or infectious colitis seem less likely. Stool specimens are ordered to rule out any treatable infection. I would recommend addition of a proton pump inhibitor as the endoscopy described reflux changes in the lower esophagus and it is possible some of her symptoms of nausea could be related to gastroesophageal reflux disease. Thanks for asking me to see her. I will follow her in the hospital with you. MD CURT Alonso/CARLOS / [phone]
[2022-02-15 03:22] VITALS: BP 122/75; PULSE 78; RESP 16; TEMP 37.1; O2SAT 100
[2022-02-15] MEDS: Omeprazole 20 MG CAPSULE.DR PO (05:30)
[2022-02-15] MEDS: Heparin Sodium,Porcine 5,000 UNIT/ML VIAL 5000 UNIT SUBCUT ×2 (05:30→21:12)
--- NOTE | 2022-02-15 07:29 | PM.PNGS ---
Subjective Subjective Date of Service: 02/15/22 Interval history: Patient reports bloating, nausea and vomiting that started last night after beef broth. She has had some vomiting and is in agreement to have a small-bowel follow-through to better discern what is going on currently in a possible treatment plan. She otherwise denies pain in her chest, difficulty breathing or shortness of breath. She has no neurologic symptoms that are localizing. Physical Exam Vital Signs: Vital Signs: Last Vital Signs Temp 98.7 F 02/15/22 03:22 Pulse 78 02/15/22 03:22 Resp 16 02/15/22 03:22 BP 122/75 02/15/22 03:22 Pulse Ox 100 02/15/22 03:22 O2 Del Method 02/15/22 03:22 O2 Flow Rate 2 02/15/22 03:22 FiO2 35 02/04/22 11:22 BMI result Body Mass Index 27.5 Exam is unchanged. There is no peritoneal sign to percussion. Her abdomen is nondistended. Appropriate incisional tenderness is present She is nontoxic on exam, anicteric in communicating in full sentences Objective Data Active Medications Acetaminophen (Acetaminophen Supp 650 Mg Supp.Rect) 650 mg [place] Q6H PRN PRN Reason: Pain, Mild (Pain Scale 1-3) Acetaminophen (Acetaminophen 325 Mg Tablet) 650 mg PO Q6H PRN PRN Reason: Pain, Mild (Pain Scale 1-3) Last Admin: 02/08/22 10:25 Dose: 650 mg Documented By: NEENA Allopurinol (Allopurinol 100 Mg Tablet) 100 mg PO DAILY [facility] Last Admin: 02/14/22 08:27 Dose: Not Given Documented By: JANET Non-Admin Reason: NPO Amlodipine Besylate (Amlodipine Besylate 5 Mg Tablet) 5 mg PO DAILY [facility]; Protocol Last Admin: 02/14/22 08:27 Dose: Not Given Documented By: JANET Non-Admin Reason: NPO Bisacodyl (Bisacodyl 10 Mg Supp.Rect) 10 mg [place] DAILY PRN PRN Reason: Constipation Heparin Sodium (Porcine) (Heparin Sodium,Porcine 5,000 Unit/Ml Vial) 5,000 unit SUBCUT Q12H [facility] Last Admin: 02/15/22 05:30 Dose: 5,000 unit Documented By: HO.DESROA Acetaminophen (Ofirmev) 1,000 mg in 100 mls @ 400 mls/hr IV Q6H PRN PRN Reason: Pain, Severe (Pain Scale 7-10) Last Infusion: 02/14/22 05:18 Dose: 0 mls/hr Documented By: SHRAVAN Dextrose (D5w) 1,000 mls @ 80 mls/hr IVCONT .[id number] [facility] Last Admin: 02/15/22 05:34 Dose: Not Given Documented By: GENEVIEVE Non-Admin Reason: IV Running Lidocaine (Lidocaine 4 % Patch Adh..Patch) 1 patch TRANSDERMA DAILY [facility]; Protocol Last Admin: 02/14/22 08:43 Dose: 1 patch Documented By: JANET Loperamide HCl (Loperamide Hcl 2 Mg Capsule) 2 mg PO Q4H PRN PRN Reason: Diarrhea Last Admin: 02/13/22 21:42 Dose: 2 mg Documented By: SHRAVAN Omeprazole (Omeprazole 20 Mg Capsule.) 20 mg PO DAILY@0630 [facility] Last Admin: 02/15/22 05:30 Dose: 20 mg Documented By: GENEVIEVE Ondansetron HCl (Ondansetron Hcl 4 Mg/2 Ml Vial) 4 mg IVPUSH Q8H PRN PRN Reason: Nausea and Vomiting Last Admin: 02/14/22 00:22 Dose: 4 mg Documented By: SHRAVAN Sertraline HCl (Sertraline Hcl 100 Mg Tablet) 100 mg PO DAILY [facility] Last Admin: 02/14/22 08:27 Dose: Not Given Documented By: JANET Non-Admin Reason: NPO Sodium Chloride (0.9 % Sodium Chloride Flush 3 Ml Syringe) 3 ml IVFLUSH QSHIFT [facility] Last Admin: 02/14/22 21:43 Dose: Not Given Documented By: GENEVIEVE Non-Admin Reason: IV Running Labs CBC & Chem 7: 02/14/22 05:54 02/15/22 06:44 Labs: Laboratory Results - last 24 hr 02/14/22 02/14/22 05:54 16:18 Anion Gap 21 H 18 Estim Creat Clear Calc 27.7 28.6 Estimated GFR 38 39 Random Glucose 112 111 Calcium 8.8 8.4 Procedures Date of Service Date of Service: 02/15/22 Progress Note: A&P Assessment and plan (1) Diarrhea: Status: Acute (2) Vomiting: Status: Acute (3) Malnutrition: Status: Acute (4) Frailty syndrome in geriatric patient: Status: Acute (5) Hiatal hernia: Status: Acute (6) COPD (chronic obstructive pulmonary disease): Status: Acute Plan The patient is in agreement for small-bowel follow-through. Given the lack of progress, a PICC line and TPN may also be reasonable at this point. Await GI testing regarding possible nonsurgical etiology. Case was discussed with Dr. Head. ADDENDUM 4:45pm C diff test is positive; the patient will be started on p.o. vancomycin Small-bowel follow-through is still pending, however, films to date show progress through the small bowel. Time Spent With Patient Time: Total time spent is greater than 50% in coordination of care (as documented) at patient's floor/unit and/or counseling patient: Quality Stroke Does the patient have a stroke diagnosis?: No VTE Prior VTE?: No VTE Risk Level:: Medical - moderate - high VTE Device Contraindication: N/A - Device Ordered VTE Drug Contraindication: Treatment Not Indicated
[2022-02-15 07:31] VITALS: BP 121/78; PULSE 70; RESP 20; TEMP 36.4; O2SAT 98
[2022-02-15 07:44] LABS: Alanine Aminotransferase 12 U/L (0-31); Albumin Level 2.9 g/dL (3.5-5.0); Alkaline Phosphatase 84 U/L (39-117); Aspartate Amino Transferase 20 U/L (5-31); Bilirubin Direct < 0.2 mg/dL (0.0-0.5); Bilirubin Total 0.2 mg/dL (0.0-1.0); Magnesium 1.8 mg/dL (1.6-2.6); Total Protein 5.6 g/dL (6.5-8.0)
[2022-02-15 11:06] VITALS: BP 140/70; PULSE 70; RESP 18; TEMP 36.6; O2SAT 97
--- NOTE | 2022-02-15 13:00 | MHC.CLN ---
RE: CONSULT PT NOT TOLERATING C/L DIET PT PENDING PICC AND TPN IF TPN NEEDED; RECOMMEND D15AA5% AT 35ML/HR TO PROVIDE 596KCALS, 42G PROTEIN (.8G/KG) PHARMACY NOTIFIED AND AWARE FOLLOWING WITH TEAM
[2022-02-15 13:37] LABS: Anion Gap 22 (12-20); Blood Urea Nitrogen 34 mg/dL (9-16); Calcium 8.4 mg/dL (8.4-10.2); Carbon Dioxide 17 mmol/L (22-29); Chloride 98 mmol/L (96-108); Creatinine Clr Calc Pharmacy 31.2; Estimated Glomerular Filt Rate 43; Glucose Random 101 mg/dL (60-115); Phosphorus 3.7 mg/dL (2.7-4.5); Potassium 3.7 mmol/L (3.3-5.1); Sodium 133 mmol/L (135-145); Triglycerides 185 mg/dL
--- NOTE | 2022-02-15 14:18 | P.PNIM_ITS ---
Subjective Subjective Date of Service: 02/15/22 Interval History: patient undergoing barium study, feeling better this morning denies nausea and abdominal discomfort, last night had nausea, vomiting after beef broth, at present feels uncomfortable due to her position in bed, no fevers no chills had 1 loose bm Review of Systems [employer] no headache no dizziness CVS no chest pain Review of Systems: Yes all other systems are reviewed and are negative Physical Exam Vital Signs: Vital Signs: Last Vital Signs Temp 97.9 F 02/15/22 11:06 Pulse 70 02/15/22 11:06 Resp 18 02/15/22 11:06 BP 140/70 H 02/15/22 11:06 Pulse Ox 97 02/15/22 11:06 O2 Del Method 02/15/22 11:06 O2 Flow Rate 2 02/15/22 11:06 FiO2 35 02/04/22 11:22 BMI result Body Mass Index 27.5 Const: Other: General: alert, oriented to self, place, year neck no JVD Resp: clear to auscultation, no wheeze or rales and no accessory muscle use CVS: S1,S2,RRR GI:? abdomen soft nontender, decrease BS Skin: No rash, stage 2 pressure ulcer both buttock --see nursing for detail extremities bilateral pitting edema mild hyperemia dorsum of right foot good pulses, cold extremities MSK: no tenderness on spine Neuro:? motor grossly intact Psych: flat affect Objective Data Active Medications Acetaminophen (Acetaminophen Supp 650 Mg Supp.Rect) 650 mg [place] Q6H PRN PRN Reason: Pain, Mild (Pain Scale 1-3) Acetaminophen (Acetaminophen 325 Mg Tablet) 650 mg PO Q6H PRN PRN Reason: Pain, Mild (Pain Scale 1-3) Last Admin: 02/08/22 10:25 Dose: 650 mg Documented By: NEENA Allopurinol (Allopurinol 100 Mg Tablet) 100 mg PO DAILY [facility] Last Admin: 02/15/22 08:37 Dose: Not Given Documented By: MARK Non-Admin Reason: Physician Held Med Amlodipine Besylate (Amlodipine Besylate 5 Mg Tablet) 5 mg PO DAILY [facility]; Protocol Last Admin: 02/15/22 08:37 Dose: Not Given Documented By: MARK Non-Admin Reason: Physician Held Med Bisacodyl (Bisacodyl 10 Mg Supp.Rect) 10 mg [place] DAILY PRN PRN Reason: Constipation Heparin Sodium (Porcine) (Heparin Sodium,Porcine 5,000 Unit/Ml Vial) 5,000 unit SUBCUT Q12H [facility] Last Admin: 02/15/22 05:30 Dose: 5,000 unit Documented By: GENEVIEVE Acetaminophen (Ofirmev) 1,000 mg in 100 mls @ 400 mls/hr IV Q6H PRN PRN Reason: Pain, Severe (Pain Scale 7-10) Last Infusion: 02/14/22 05:18 Dose: 0 mls/hr Documented By: SHRAVAN Dextrose (D5w) 1,000 mls @ 80 mls/hr IVCONT .[id number] [facility] Last Infusion: 02/15/22 11:24 Dose: 80 mls/hr Documented By: MARK Lidocaine (Lidocaine 4 % Patch Adh..Patch) 1 patch TRANSDERMA DAILY [facility]; Protocol Last Admin: 02/15/22 08:37 Dose: Not Given Documented By: MARK Non-Admin Reason: Physician Held Med Loperamide HCl (Loperamide Hcl 2 Mg Capsule) 2 mg PO Q4H PRN PRN Reason: Diarrhea Last Admin: 02/13/22 21:42 Dose: 2 mg Documented By: SHRAVAN Omeprazole (Omeprazole 20 Mg Capsule.) 20 mg PO DAILY@0630 [facility] Last Admin: 02/15/22 05:30 Dose: 20 mg Documented By: GENEVIEVE Ondansetron HCl (Ondansetron Hcl 4 Mg/2 Ml Vial) 4 mg IVPUSH Q8H PRN PRN Reason: Nausea and Vomiting Last Admin: 02/14/22 00:22 Dose: 4 mg Documented By: SHRAVAN Sertraline HCl (Sertraline Hcl 100 Mg Tablet) 100 mg PO DAILY [facility] Last Admin: 02/15/22 08:39 Dose: Not Given Documented By: MARK Non-Admin Reason: Physician Held Med Sodium Chloride (0.9 % Sodium Chloride Flush 3 Ml Syringe) 3 ml IVFLUSH QSHIFT [facility] Last Admin: 02/15/22 08:36 Dose: Not Given Documented By: MARK Non-Admin Reason: Physician Held Med Labs CBC & Chem 7: 02/14/22 05:54 02/15/22 06:44 Labs: Laboratory Results - last 24 hr 02/14/22 02/15/22 16:18 06:44 Anion Gap 18 22 H Estim Creat Clear Calc 28.6 31.2 Estimated GFR 39 43 Random Glucose 111 101 Calcium 8.4 8.4 Phosphorus 3.7 Magnesium 1.8 Total Bilirubin 0.2 Direct Bilirubin < 0.2 AST 20 D ALT 12 Alkaline Phosphatase 84 Total Protein 5.6 L Albumin 2.9 L Triglycerides 185 Assessment and Plan (1) Small bowel obstruction: Status: Acute (2) JONES (acute kidney injury): Status: Acute Plan 81-year-old female with bilateral unspecified mononeuropathy of lower extremity, chronic kidney, spinal stenosis, neuropathy who presents to the emerg ency department for evaluation of right sided abdominal pain on 02/01/22 and noted to have high grade SBO, she underwent laparotomy on 02/[address] Weiss and remained intubated and went to ICU overnight. She was extubated 02/04 and latertrasfed to medical floor where she has continued to have issues with nausea, vomitting, malnutrition, electrolytes abnormalities . #Small-bowel obstruction, now likely post of ileus with persistent nausea vomiting and diarrhea s/p laparotomy lysis of adhesion on 02/[address] Weiss. Post surgery was intubated and went to ICU and was extubated and transfered out the next day with NGT in place (as said to be very difficulty to insert) -NGT removed 02/07 and was started on liquid diet but since then has suffered nausea, vomitting, and diarrhea on multiple occasion. Xray of abomen on 02/10 and 02/13 show no evidence of obstruction possibly postop ileus. CT 02/11 no abscess, no bowel obstruction and again possible ileus. Cdif negative on 02/09 and 02/12, WBC was high on 02/13 (16) but normalized without antibiotics seen by GI they agree with postop ileus stool studies have been sent to rule out infectious etiology patient undergoing small-bowel follow-through study today will follow repeat port continue clear liquid diet, will readdress PICC line and TPN if symptoms persist patient and daughter declined PICC line yesterday JONES on CKD4--Creatine peaked at 2.44 on 02/05 , creatinine 1.2 this morning, will DC D5W Acute respiratory failure with hypoxia post op, she was intuabted after surgery but was rapidly extubated--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 and h/o COPD, and atelectasis--hypoxia has resolved but remains on oxygen at 2 liters. She was given some lasix for possible fluid overload, remains 16 L positive follow clinical course COPD no acute exacerbation continue scheduled breathing treatments and PRN UTI--Treated with IV ceftriaxone, culture negative. While in ICU was also emprically started on Zosyn but was later stopped Neuropathy-- resume pregabalin when tolerate oral Hypomagnesemia--due to diarrhea, repeat magnesium 1.8 HypOkalemia--Corrected, follow BMP closely Chronic macrocytic anemia stable H&H, B12 306, folate 12.2 chronic back pain h/o spinal stenosis, continue Tylenol for pain control patient does not want opioid Mild to moderate protein calory malnutrition--nutrition following, if tolerate diet, Ensure will be added and may need TPN as stated above Mood Continue sertraline mild transaminitis,holding atorvastatin, LFTs normal today Ddiarrhea, C dif negative x 2 on 02/09 and 02/12 Leukocytosis on 02/13 no fever, no tachycardia, no cough and abdominal pain and clinically looks well, no erythema at surgical site.. likely reactive and back on normal 02/14 witout intervention stage II pressure ulcer bilateral buttocks recommend frequent position change air loss mattress barrier cream and TPN if patient agrees Code status: Full code DVT prophylaxis:? Mechanical compression boots and heparin Continue hospitalization for treatment of small-bowel obstruction followed by postop ileus with persistent nausea vomiting and diarrhea requiring IV fluids and possible TPN Plan was discussed with azeem rasmussen at bedside. PT is recommending short term rehab when medically ready. Quality Stroke Does the patient have a stroke diagnosis?: No VTE Prior VTE?: No VTE Risk Level:: Medical - moderate - high VTE Device Contraindication: N/A - Device Ordered VTE Drug Contraindication: Treatment Not Indicated
--- NOTE | 2022-02-15 14:56 | PM.GIPN ---
Subjective Subjective Date of Service: 02/15/22 Interval History: vomited last night sbft underway she wants to eat Critical Care Time (minutes): 0 Physical Exam Vital Signs: Vital Signs: Last Vital Signs Temp 97.9 F 02/15/22 11:06 Pulse 70 02/15/22 11:06 Resp 18 02/15/22 11:06 BP 140/70 H 02/15/22 11:06 Pulse Ox 97 02/15/22 11:06 O2 Del Method 02/15/22 11:06 O2 Flow Rate 2 02/15/22 11:06 FiO2 35 02/04/22 11:22 BMI result Body Mass Index 27.5 Const: General: tired appearing GI: Other: abdomen is soft and Objective Data Labs CBC & Chem 7: 02/14/22 05:54 02/15/22 06:44 Labs: Laboratory Results - last 24 hr 02/14/22 02/15/22 16:18 06:44 Sodium 135 133 L Potassium 3.6 3.7 Chloride 100 98 Carbon Dioxide 21 L 17 L Anion Gap 18 22 H BUN 33 H 34 H Creatinine 1.31 1.20 Estim Creat Clear Calc 28.6 31.2 Estimated GFR 39 43 Random Glucose 111 101 Calcium 8.4 8.4 Phosphorus 3.7 Magnesium 1.8 Total Bilirubin 0.2 Direct Bilirubin < 0.2 AST 20 D ALT 12 Alkaline Phosphatase 84 Total Protein 5.6 L Albumin 2.9 L Triglycerides 185 Microbiology Microbiology Results: Microbiology 02/01/22 21:06 Blood - Venous Blood Culture - Final No growth after 5 days. 02/01/22 19:26 Blood - Venous Blood Culture - Final No growth after 5 days. 02/02/22 00:00 Urine Catheterized - Straight Catheter Urine Culture - Final Procedures Date of Service Date of Service: 02/15/22 Progress Note: A&P Assessment and plan (1) Diarrhea: Status: Acute Assessment and Plan: stool tests pending gi panel reordered await results of sbft Time Spent With Patient Time: Total time spent is greater than 50% in coordination of care (as documented) at patient's floor/unit and/or counseling patient: Quality Stroke Does the patient have a stroke diagnosis?: No VTE Prior VTE?: No VTE Risk Level:: Medical - moderate - high VTE Device Contraindication: N/A - Device Ordered VTE Drug Contraindication: Treatment Not Indicated
[2022-02-15 15:46] VITALS: BP 137/77; PULSE 68; RESP 16; TEMP 37.6; O2SAT 97
--- NOTE | 2022-02-15 16:29 | MHC.CM.PN ---
Received a phone call from Danna Bower. She is not happy with answers that she receives from some staff members. She feels that she is receiving conflicting information from different staff members. She also feels that staff members are contradicting themselves when they respond to questions. T/W informed case management leadership of the complaints. The family is asking for clarification. Issues will be addressed tomorrow.
[2022-02-15 19:49] VITALS: BP 121/64; PULSE 55; RESP 18; TEMP 35.8; O2SAT 100
[2022-02-15] MEDS: vancomycin HCL 125 MG CAPSULE PO (21:12)
[2022-02-15] MEDS: 0.9 % Sodium Chloride Flush 3 ML SYRINGE IVFLUSH (21:13)
[2022-02-15] MEDS: 0.9 % Sodium Chloride 1,000 ML 50 ML IVCONT (21:31)
[2022-02-15] MEDS: Acetaminophen 325 MG TABLET 650 MG PO (23:05)
[2022-02-15 23:13] VITALS: BP 119/67; PULSE 89; RESP 18; TEMP 36.6; O2SAT 98
[2022-02-15] MEDS: traZODone HCL 50 MG TABLET PO (23:39)
[2022-02-16] VITALS (7 sets, daily range): BP systolic 112–130; BP diastolic 60–74; PULSE 69–89; RESP 16–20; TEMP 36.1–37.3; O2SAT 93–99
[2022-02-16] MEDS: ondansetron HCL 4 MG/2 ML VIAL IVPUSH ×2 (01:24→08:24)
[2022-02-16] MEDS: Omeprazole 20 MG CAPSULE.DR PO (06:06)
[2022-02-16] MEDS: Heparin Sodium,Porcine 5,000 UNIT/ML VIAL 5000 UNIT SUBCUT ×2 (06:06→19:11)
[2022-02-16] MEDS: amLODIPine Besylate 5 MG TABLET PO (09:40)
[2022-02-16] MEDS: Sertraline HCL 100 MG TABLET PO (09:40)
[2022-02-16] MEDS: allopurinoL 100 MG TABLET PO (09:40)
[2022-02-16] MEDS: Lidocaine 4 % Patch ADH..PATCH 1 PATCH TRANSDERMA (09:41)
[2022-02-16] MEDS: 0.9 % Sodium Chloride Flush 3 ML SYRINGE IVFLUSH ×3 (09:42→19:39)
--- NOTE | 2022-02-16 10:25 | MHC.CM.PN ---
Female 81 DX SBO s/p surgical intervention and Post Op Illeus. SBFT yesterday results pending. DP Acute vs STR. 1st choice is [facility] if STR. Patient will transport via BLS.
--- NOTE | 2022-02-16 14:26 | P.PNGS_ITS ---
Subjective Subjective Date of Service: 02/16/22 Patient reports: feels better and tolerating liquids well Interval history: The patient is seen with her daughter Asha at bedside. We reviewed the erroneously report from several years ago of C diff and the patient's interval improvement and diarrhea and passing oral contrast from the small bowel follow- through. The patient is in agreement to continue did try clears/full liquids through today and is in agreement to have a PICC line placed if she fails her diet and needs TPN for nutritional support. Physical Exam Vital Signs: Vital Signs: Last Vital Signs Temp 98.5 F 02/16/22 11:26 Pulse 86 02/16/22 11:26 Resp 20 02/16/22 11:26 BP 119/74 02/16/22 11:26 Pulse Ox 96 02/16/22 11:26 O2 Del Method 02/16/22 11:26 O2 Flow Rate 3 02/16/22 11:26 FiO2 35 02/04/22 11:22 BMI result Body Mass Index 27.5 Patient's abdomen is healing well with no evidence of infection or cellulitis. She has really no tenderness or peritoneal sign on percussion. Objective Data Active Medications Acetaminophen (Acetaminophen Supp 650 Mg Supp.Rect) 650 mg [place] Q6H PRN PRN Reason: Pain, Mild (Pain Scale 1-3) Acetaminophen (Acetaminophen 325 Mg Tablet) 650 mg PO Q6H PRN PRN Reason: Pain, Mild (Pain Scale 1-3) Last Admin: 02/15/22 23:05 Dose: 650 mg Documented By: KIRA Allopurinol (Allopurinol 100 Mg Tablet) 100 mg PO DAILY [facility] Last Admin: 02/16/22 09:40 Dose: 100 mg Documented By: DOMONIQUE Amlodipine Besylate (Amlodipine Besylate 5 Mg Tablet) 5 mg PO DAILY [facility]; Protocol Last Admin: 02/16/22 09:40 Dose: 5 mg Documented By: DOMONIQUE Bisacodyl (Bisacodyl 10 Mg Supp.Rect) 10 mg [place] DAILY PRN PRN Reason: Constipation Heparin Sodium (Porcine) (Heparin Sodium,Porcine 5,000 Unit/Ml Vial) 5,000 unit SUBCUT Q12H [facility] Last Admin: 02/16/22 06:06 Dose: 5,000 unit Documented By: KIRA Acetaminophen (Ofirmev) 1,000 mg in 100 mls @ 400 mls/hr IV Q6H PRN PRN Reason: Pain, Severe (Pain Scale 7-10) Last Infusion: 02/14/22 05:18 Dose: 0 mls/hr Documented By: SHRAVAN Lidocaine (Lidocaine 4 % Patch Adh..Patch) 1 patch TRANSDERMA DAILY [facility]; Protocol Last Admin: 02/16/22 09:41 Dose: 1 patch Documented By: DOMONIQUE Omeprazole (Omeprazole 20 Mg Capsule.Dr) 20 mg PO DAILY@0630 [facility] Last Admin: 02/16/22 06:06 Dose: 20 mg Documented By: KIRA Ondansetron HCl (Ondansetron Hcl 4 Mg/2 Ml Vial) 4 mg IVPUSH Q8H PRN PRN Reason: Nausea and Vomiting Last Admin: 02/16/22 08:24 Dose: 4 mg Documented By: DOMONIQUE Sertraline HCl (Sertraline Hcl 100 Mg Tablet) 100 mg PO DAILY [facility] Last Admin: 02/16/22 09:40 Dose: 100 mg Documented By: DOMONIQUE Sodium Chloride (0.9 % Sodium Chloride Flush 3 Ml Syringe) 3 ml IVFLUSH QSHIFT [facility] Last Admin: 02/16/22 09:42 Dose: 3 ml Documented By: DOMONIQUE Labs CBC & Chem 7: 02/14/22 05:54 02/15/22 06:44 Procedures Date of Service Date of Service: 02/16/22 Progress Note: A&P Assessment and plan (1) Diarrhea: Status: Acute (2) Vomiting: Status: Acute (3) Malnutrition: Status: Acute (4) Frailty syndrome in geriatric patient: Status: Acute (5) Hiatal hernia: Status: Acute (6) COPD (chronic obstructive pulmonary disease): Status: Acute Plan Continue full liquids for now. If fulls or tolerated, a low residue/soft diet is in order. If the patient fails, she is in agreement for a PICC and TPN would start , 02/17. Time Spent With Patient Time: Total time spent is greater than 50% in coordination of care (as documented) at patient's floor/unit and/or counseling patient: Quality Stroke Does the patient have a stroke diagnosis?: No VTE Prior VTE?: No VTE Risk Level:: Medical - moderate - high VTE Device Contraindication: N/A - Device Ordered VTE Drug Contraindication: Treatment Not Indicated
--- NOTE | 2022-02-16 14:28 | P.PNIM_ITS ---
Subjective Subjective Date of Service: 02/16/22 Interval History: patient feeling better this morning events from last night noted patient had lose to overnight and 1 episode of vomiting this morning since then feeling better tolerated breakfast and lunch, sitting out of bed to chair, denies abdominal pain, no shortness of breath, no chest pain, no palpitations. Review of Systems Review of Systems: Yes all other systems are reviewed and are negative Physical Exam Vital Signs: Vital Signs: Last Vital Signs Temp 98.5 F 02/16/22 11:26 Pulse 86 02/16/22 11:26 Resp 20 02/16/22 11:26 BP 119/74 02/16/22 11:26 Pulse Ox 96 02/16/22 11:26 O2 Del Method 02/16/22 11:26 O2 Flow Rate 3 02/16/22 11:26 FiO2 35 02/04/22 11:22 BMI result Body Mass Index 27.5 Const: Other: General: alert, oriented to self, place, year neck no JVD Resp:? clear to auscultation, no wheeze or rales and no accessory muscle use CVS: S1,S2,RRR GI:?? abdomen soft nontender, decrease BS Skin: No rash, stage 2 pressure ulcer both buttock --see nursing for detail extremities bilateral pitting edema mild hyperemia dorsum of right foot good pulses, cold extremities , unchanged from yesterday MSK: no tenderness on spine Neuro:? motor grossly intact Psych: flat affect Objective Data Active Medications Acetaminophen (Acetaminophen Supp 650 Mg Supp.Rect) 650 mg [place] Q6H PRN PRN Reason: Pain, Mild (Pain Scale 1-3) Acetaminophen (Acetaminophen 325 Mg Tablet) 650 mg PO Q6H PRN PRN Reason: Pain, Mild (Pain Scale 1-3) Last Admin: 02/15/22 23:05 Dose: 650 mg Documented By: KIRA Allopurinol (Allopurinol 100 Mg Tablet) 100 mg PO DAILY [facility] Last Admin: 02/16/22 09:40 Dose: 100 mg Documented By: DOMONIQUE Amlodipine Besylate (Amlodipine Besylate 5 Mg Tablet) 5 mg PO DAILY [facility]; Prot ocol Last Admin: 02/16/22 09:40 Dose: 5 mg Documented By: DOMONIQUE Bisacodyl (Bisacodyl 10 Mg Supp.Rect) 10 mg [place] DAILY PRN PRN Reason: Constipation Heparin Sodium (Porcine) (Heparin Sodium,Porcine 5,000 Unit/Ml Vial) 5,000 unit SUBCUT Q12H [facility] Last Admin: 02/16/22 06:06 Dose: 5,000 unit Documented By: KIRA Acetaminophen (irmev) 1,000 mg in 100 mls @ 400 mls/hr IV Q6H PRN PRN Reason: Pain, Severe (Pain Scale 7-10) Last Infusion: 02/14/22 05:18 Dose: 0 mls/hr Documented By: SHRAVAN Lidocaine (Lidocaine 4 % Patch Adh..Patch) 1 patch TRANSDERMA DAILY [facility]; Protocol Last Admin: 02/16/22 09:41 Dose: 1 patch Documented By: DOMONIQUE Omeprazole (Omeprazole 20 Mg Capsule.) 20 mg PO DAILY@0630 [facility] Last Admin: 02/16/22 06:06 Dose: 20 mg Documented By: KIRA Ondansetron HCl (Ondansetron Hcl 4 Mg/2 Ml Vial) 4 mg IVPUSH Q8H PRN PRN Reason: Nausea and Vomiting Last Admin: 02/16/22 08:24 Dose: 4 mg Documented By: DOMONIQUE Sertraline HCl (Sertraline Hcl 100 Mg Tablet) 100 mg PO DAILY [facility] Last Admin: 02/16/22 09:40 Dose: 100 mg Documented By: DOMONIQUE Sodium Chloride (0.9 % Sodium Chloride Flush 3 Ml Syringe) 3 ml IVFLUSH QSHIFT [facility] Last Admin: 02/16/22 09:42 Dose: 3 ml Documented By: DOMONIQUE Labs CBC & Chem 7: 02/14/22 05:54 02/15/22 06:44 Assessment and Plan (1) Small bowel obstruction: Status: Acute (2) JONES (acute kidney injury): Status: Acute Plan 81-year-old female with bilateral unspecified mononeuropathy of lower extremity, chronic kidney, spinal stenosis, neuropathy who presents to the emergency department for evaluation of right sided abdominal pain on 02/01/22 and noted to have high grade SBO, she underwent laparotomy on 02/[address] Weiss and remained intubated and went to ICU overnight. She was extubated 02/04 and latertrasfed to medical floor where she has continued to have issues with nausea, vomitting, malnutrition, electrolytes abnormalities . #Small-bowel obstruction, now likely post op ileus s/p laparotomy lysis of adhesion on 02/[address] Weiss. Post surgery was intubated and went to ICU and was extubated and transfered out the next day with NGT in place (as said to be very difficulty to insert) -NGT removed 02/07 and was started on liquid diet but since then has suffered nausea, vomitting, and diarrhea on multiple occasion. Xray of abomen on 02/10 and 02/13 show no evidence of obstruction possibly postop ileus. CT 02/11 no abscess, no bowel obstruction and again possible ileus. Cdif negative on 02/09 and 02/12, WBC was high on 02/13 (16) but normalized without antibiotics seen by GI they agree with postop ileus stool studies have been sent to rule out infectious etiology small-bowel follow-through report pending continue full liquid diet if unable to tolerate will order PICC line and TPN if symptoms persist patient and daughter agreed with treatment plan JONES on CKD4--Creatine peaked at 2.44 on 02/05 , creatinine normalized to 1.2 , mild metabolic acidosis likely due to diarrhea will follow BMP add soda bicarb Acute respiratory failure with hypoxia post op, she was intuabted after surgery but was rapidly extubated--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 and h/o COPD, and atelectasis will gradually wean oxygen COPD no acute exacerbation continue scheduled breathing treatments and PRN UTI--Treated with IV ceftriaxone, culture negative. While in ICU was also emprically started on Zosyn but was later stopped Neuropathy-- resume pregabalin when tolerate oral Hypomagnesemia--due to diarrhea, repeat magnesium 1.8 HypOkalemia--Corrected, follow BMP closely Chronic macrocytic anemia stable H&H, B12 306, folate 12.2 chronic back pain h/o spinal stenosis, continue Tylenol for pain control patient does not want opioid Mild to moderate protein calorie malnutrition--nutrition following, if tolerate diet, Ensure will be added and may need TPN as stated above Mood Continue sertraline mild transaminitis,holding atorvastatin, LFTs normal today Ddiarrhea, C dif negative x 2 on 02/09 and 02/12 Leukocytosis on 02/13 no fever, no tachycardia, no cough and abdominal pain and clinically looks well, no erythema at surgical site.. likely reactive and back on normal 02/14 witout intervention stage II pressure ulcer bilateral buttocks recommend frequent position change air loss mattress barrier cream Code status: Full code DVT prophylaxis:? Mechanical compression boots and heparin Continue hospitalization for treatment of small-bowel obstruction followed by postop ileus with persistent nausea vomiting and diarrhea requiring IV fluids and possible TPN Plan was discussed with grady, daughter Asha at bedside. PT is recommending short term rehab when medically ready. Quality Stroke Does the patient have a stroke diagnosis?: No VTE Prior VTE?: No VTE Risk Level:: Medical - moderate - high VTE Device Contraindication: N/A - Device Ordered VTE Drug Contraindication: Treatment Not Indicated
--- NOTE | 2022-02-16 14:45 | MHC.CLN ---
F/U PT IS S/P SBFU DIET ADVANCED TO F/L TOELRATED BREAKFAST AND LUNCH PER MD RECOMMEND ADDING ENSURE BID TO INCREASE KCALS SUPP WILL PROVIDE 700KCALS, 40G PROTEIN MONITOR PO INTAKE CLOSELY OBTAIN CURRENT WEIGHT CONSULT RD IF TPN NEEDED FOLLOWING WITH TEAM
--- NOTE | 2022-02-16 16:03 | PM.GIPN ---
Subjective Subjective Date of Service: 02/16/22 Interval History: c/o back pain after x rays vomited contrast last night kept down liquids today Critical Care Time (minutes): 0 Physical Exam Vital Signs: Vital Signs: Last Vital Signs Temp 98.7 F 02/16/22 15:42 Pulse 75 02/16/22 15:42 Resp 17 02/16/22 15:42 BP 116/67 02/16/22 15:42 Pulse Ox 98 02/16/22 15:42 O2 Del Method 02/16/22 15:42 O2 Flow Rate 3 02/16/22 11:26 FiO2 35 02/04/22 11:22 BMI result Body Mass Index 27.5 GI: Other: abdomen is soft Objective Data Labs CBC & Chem 7: 02/14/22 05:54 02/15/22 06:44 Microbiology Microbiology Results: Microbiology 02/01/22 21:06 Blood - Venous Blood Culture - Final No growth after 5 days. 02/01/22 19:26 Blood - Venous Blood Culture - Final No growth after 5 days. 02/02/22 00:00 Urine Catheterized - Straight Catheter Urine Culture - Final Procedures Date of Service Date of Service: 02/16/22 Progress Note: A&P Assessment and plan (1) Vomiting: Status: Acute Assessment and Plan: sbft shows no obstruction, appears c/w ileus stool studies pending continue supportive care Time Spent With Patient Time: Total time spent is greater than 50% in coordination of care (as documented) at patient's floor/unit and/or counseling patient: Quality Stroke Does the patient have a stroke diagnosis?: No VTE Prior VTE?: No VTE Risk Level:: Medical - moderate - high VTE Device Contraindication: N/A - Device Ordered VTE Drug Contraindication: Treatment Not Indicated
[2022-02-16 16:08] LABS: Leukocytes Stool Qualitative NEGATIVE (NEGATIVE)
[2022-02-16 16:27] LABS: CDiff Gene PCR NEGATIVE (Negative)
[2022-02-17 03:17] VITALS: BP 129/65; PULSE 84; RESP 20; TEMP 36.8; O2SAT 97
[2022-02-17] MEDS: Heparin Sodium,Porcine 5,000 UNIT/ML VIAL 5000 UNIT SUBCUT ×2 (05:27→17:42)
[2022-02-17] MEDS: Omeprazole 20 MG CAPSULE.DR PO (05:27)
[2022-02-17 07:43] VITALS: BP 130/68; PULSE 85; RESP 20; TEMP 36.8; O2SAT 96
[2022-02-17] MEDS: amLODIPine Besylate 5 MG TABLET PO (09:06)
[2022-02-17] MEDS: allopurinoL 100 MG TABLET PO (09:06)
[2022-02-17] MEDS: Lidocaine 4 % Patch ADH..PATCH 1 PATCH TRANSDERMA (09:06)
[2022-02-17] MEDS: Sertraline HCL 100 MG TABLET PO (09:06)
[2022-02-17] MEDS: 0.9 % Sodium Chloride Flush 3 ML SYRINGE IVFLUSH ×3 (09:11→21:08)
[2022-02-17 09:46] LABS: Adenovirus F 40/41 Not Detected (Not Detect.); Astrovirus Not Detected (Not Detect.); Campylobacter Not Detected (Not Detect.); Cryptosporidium Not Detected (Not Detect.); Cyclospora cayetanensis Not Detected (Not Detect.); E. coli EAEC Not Detected (Not Detect.); E. coli EPEC Not Detected (Not Detect.); E. coli ETEC Not Detected (Not Detect.); E. coli STEC Not Detected (Not Detect.); Entamoeba histolytica Not Detected (Not Detect.); Giardia lamblia Not Detected (Not Detect.); Norovirus GI/GII Not Detected (Not Detect.); Plesiomonas shigelloides Not Detected (Not Detect.); Rotavirus A Not Detected (Not Detect.); Salmonella Not Detected (Not Detect.); Sapovirus Not Detected (Not Detect.); Shigella sp./EIEC Not Detected (Not Detect.); Vibrio Not Detected (Not Detect.); Vibrio Cholerae Not Detected (Not Detect.); Yersinia enterocolitica Not Detected (Not Detect.)
--- NOTE | 2022-02-17 10:56 | P.PNGS_ITS ---
Subjective Subjective Date of Service: 02/17/22 Patient reports: no new complaints and feels better Interval history: Patient reports she is tolerating her diet at this time. No nausea or vomiting. No chest pain, difficulty breathing or shortness of breath. Physical Exam Vital Signs: Vital Signs: Last Vital Signs Temp 98.2 F 02/17/22 07:43 Pulse 85 02/17/22 07:43 Resp 20 02/17/22 07:43 BP 130/68 02/17/22 07:43 Pulse Ox 96 02/17/22 07:43 O2 Del Method 02/17/22 07:43 O2 Flow Rate 2 02/17/22 07:43 FiO2 35 02/04/22 11:22 BMI result Body Mass Index 27.5 Abdominal incision is healing well with no evidence of infection or complication. Thompson remain intact. Praveen will need to be removed in a week's time given the poor nutrition. Objective Data Active Medications Acetaminophen (Acetaminophen Supp 650 Mg Supp.Rect) 650 mg [place] Q6H PRN PRN Reason: Pain, Mild (Pain Scale 1-3) Acetaminophen (Acetaminophen 325 Mg Tablet) 650 mg PO Q6H PRN PRN Reason: Pain, Mild (Pain Scale 1-3) Last Admin: 02/15/22 23:05 Dose: 650 mg Documented By: KIRA Allopurinol (Allopurinol 100 Mg Tablet) 100 mg PO DAILY [facility] Last Admin: 02/17/22 09:06 Dose: 100 mg Documented By: MELISSA Amlodipine Besylate (Amlodipine Besylate 5 Mg Tablet) 5 mg PO DAILY [facility]; Protocol Last Admin: 02/17/22 09:06 Dose: 5 mg Documented By: MELISSA Bisacodyl (Bisacodyl 10 Mg Supp.Rect) 10 mg [place] DAILY PRN PRN Reason: Constipation Heparin Sodium (Porcine) (Heparin Sodium,Porcine 5,000 Unit/Ml Vial) 5,000 unit SUBCUT Q12H [facility] Last Admin: 02/17/22 05:27 Dose: 5,000 unit Documented By: SHRAVAN Acetaminophen (Ofirmev) 1,000 mg in 100 mls @ 400 mls/hr IV Q6H PRN PRN Reason: Pain, Severe (Pain Scale 7-10) Last Infusion: 02/14/22 05:18 Dose: 0 mls/hr Documented By: SHRAVAN Lidocaine (Lidocaine 4 % Patch Adh..Patch) 1 patch TRANSDERMA DAILY [facility]; Protocol Last Admin: 02/17/22 09:06 Dose: 1 patch Documented By: MELISSA Omeprazole (Omeprazole 20 Mg Capsule.Dr) 20 mg PO DAILY@0630 [facility] Last Admin: 02/17/22 05:27 Dose: 20 mg Documented By: SHRAVAN Ondansetron HCl (Ondansetron Hcl 4 Mg/2 Ml Vial) 4 mg IVPUSH Q8H PRN PRN Reason: Nausea and Vomiting Last Admin: 02/16/22 08:24 Dose: 4 mg Documented By: DOMONIQUE Sertraline HCl (Sertraline Hcl 100 Mg Tablet) 100 mg PO DAILY [facility] Last Admin: 02/17/22 09:06 Dose: 100 mg Documented By: MELISSA Sodium Chloride (0.9 % Sodium Chloride Flush 3 Ml Syringe) 3 ml IVFLUSH QSHIFT [facility] Last Admin: 02/17/22 09:11 Dose: 3 ml Documented By: MELISSA Labs CBC & Chem 7: 02/14/22 05:54 02/15/22 06:44 Labs: Laboratory Results - last 24 hr 02/16/22 02/16/22 02/16/22 14:32 14:32 14:32 Stool Leukocytes, Qual NEGATIVE Stl C. cayetanensis PCR Not Detected Stool Rotavirus A PCR Not Detected Stl Adenov F 40/41 PCR Not Detected Stool Astrovirus (PCR) Not Detected Stool Campylobacter PCR Not Detected Stool Cryptosporidium PCR Not Detected Stl Sh Tox Pr E STEC PCR Not Detected Stool E coli O157 PCR Not applicable Stl Enterotoxigenic E PCR Not Detected Stool EPEC (PCR) Not Detected Stool EAEC (PCR) Not Detected Stl E. histolytica PCR Not Detected Stool Giardia Lamblia PCR Not Detected Stl P. shigelloides PCR Not Detected Stool Salmonella PCR Not Detected Stool Sapovirus (PCR) Not Detected Stl Shigella/EIEC PCR Not Detected St Y.enterocolitica PCR Not Detected Stool Vibrio (PCR) Not Detected Stl Vibrio cholerae PCR Not Detected Stl Norovirus GI/GII PCR Not Detected C. difficile Tox B Gene NEGATIVE Procedures Date of Service Date of Service: 02/17/22 Progress Note: A&P Assessment and plan (1) Diarrhea: Status: Acute (2) Vomiting: Status: Acute (3) Malnutrition: Status: Acute (4) Frailty syndrome in geriatric patient: Status: Acute (5) Hiatal hernia: Status: Acute (6) COPD (chronic obstructive pulmonary disease): Status: Acute Plan Patient seems to be making some progress. Will need her praveen removed in a week's time. If that can be done at a rehab, that is fine. Diet as tolerated. No other restrictions based on her comorbidities. Time Spent With Patient Time: Total time spent is greater than 50% in coordination of care (as documented) at patient's floor/unit and/or counseling patient: Quality Stroke Does the patient have a stroke diagnosis?: No VTE Prior VTE?: No VTE Risk Level:: Medical - moderate - high VTE Device Contraindication: N/A - Device Ordered VTE Drug Contraindication: Treatment Not Indicated
[2022-02-17 11:47] VITALS: BP 119/76; PULSE 86; RESP 20; TEMP 36.4; O2SAT 97
--- NOTE | 2022-02-17 13:30 | HO.PM.IMPN ---
Subjective Subjective Date of Service: 02/17/22 Interval History: Feeling better this morning no nausea no vomiting no abdominal pain, documented to have 2 bowel movements in last 24 hours has been tolerating full liquid diet, slept well, denies fever chills no headache no dizziness no other acute issues. Physical Exam Vital Signs: Vital Signs: Last Vital Signs Temp 97.6 F 02/17/22 11:47 Pulse 86 02/17/22 11:47 Resp 20 02/17/22 11:47 BP 119/76 02/17/22 11:47 Pulse Ox 97 02/17/22 11:47 O2 Del Method 02/17/22 11:47 O2 Flow Rate 1 02/17/22 11:47 FiO2 35 02/04/22 11:22 BMI result Body Mass Index 27.5 Const: Other: General: alert, or iented to self, pl david, year neck no JVD Resp:? clear t o auscultation, no wheeze or rales a nd no accessory mu scle use CVS: S1,S 2,RRR GI:?? abdome n soft nontender, regular BS Skin: N o rash, stage 2 pr essure ulcer both buttock --see nurs ing for detail ext remities bilateral pitting edema bot h feet mild hypere jeb dorsum of righ t foot good pulses , cold extremities , unchanged from yesterday MSK: no tenderness on spin e Neuro:? motor gr ossly intact Psych : flat affect Objective Data Active Medications Acetaminophen (Acetaminophen Supp 650 Mg Supp.Rect) 650 mg [place] Q6H PRN PRN Reason: Pain, Mild (Pain Scale 1-3) Acetaminophen (Acetaminophen 325 Mg Tablet) 650 mg PO Q6H PRN PRN Reason: Pain, Mild (Pain Scale 1-3) Last Admin: 02/15/22 23:05 Dose: 650 mg Documented By: KIRA Allopurinol (Allopurinol 100 Mg Tablet) 100 mg PO DAILY [facility] Last Admin: 02/17/22 09:06 Dose: 100 mg Documented By: MELISSA Amlodipine Besylate (Amlodipine Besylate 5 Mg Tablet) 5 mg PO DAILY [facility]; Protocol Last Admin: 02/17/22 09:06 Dose: 5 mg Documented By: MELISSA Bisacodyl (Bisacodyl 10 Mg Supp.Rect) 10 mg [place] DAILY PRN PRN Reason: Constipation Heparin Sodium (Porcine) (Heparin Sodium,Porcine 5,000 Unit/Ml Vial) 5,000 unit SUBCUT Q12H [facility] Last Admin: 02/17/22 05:27 Dose: 5,000 unit Documented By: SHRAVAN Acetaminophen (Ofirmev) 1,000 mg in 100 mls @ 400 mls/hr IV Q6H PRN PRN Reason: Pain, Severe (Pain Scale 7-10) Last Infusion: 02/14/22 05:18 Dose: 0 mls/hr Documented By: SHRAVAN Lidocaine (Lidocaine 4 % Patch Adh..Patch) 1 patch TRANSDERMA DAILY [facility]; Protocol Last Admin: 02/17/22 09:06 Dose: 1 patch Documented By: MELISSA Omeprazole (Omeprazole 20 Mg Capsule.Dr) 20 mg PO DAILY@0630 [facility] Last Admin: 02/17/22 05:27 Dose: 20 mg Documented By: SHRAVAN Ondansetron HCl (Ondansetron Hcl 4 Mg/2 Ml Vial) 4 mg IVPUSH Q8H PRN PRN Reason: Nausea and Vomiting Last Admin: 02/16/22 08:24 Dose: 4 mg Documented By: DOMONIQUE Sertraline HCl (Sertraline Hcl 100 Mg Tablet) 100 mg PO DAILY [facility] Last Admin: 02/17/22 09:06 Dose: 100 mg Documented By: MELISSA Sodium Chloride (0.9 % Sodium Chloride Flush 3 Ml Syringe) 3 ml IVFLUSH QSHIFT [facility] Last Admin: 02/17/22 09:11 Dose: 3 ml Documented By: MELISSA Labs CBC & Chem 7: 02/14/22 05:54 02/15/22 06:44 Labs: Laboratory Results - last 24 hr 02/16/22 02/16/22 02/16/22 14:32 14:32 14:32 Stool Leukocytes, Qual NEGATIVE Stl C. cayetanensis PCR Not Detected Stool Rotavirus A PCR Not Detected Stl Adenov F 40/41 PCR Not Detected Stool Astrovirus (PCR) Not Detected Stool Campylobacter PCR Not Detected Stool Cryptosporidium PCR Not Detected Stl Sh Tox Pr E STEC PCR Not Detected Stool E coli O157 PCR Not applicable Stl Enterotoxigenic E PCR Not Detected Stool EPEC (PCR) Not Detected Stool EAEC (PCR) Not Detected Stl E. histolytica PCR Not Detected Stool Giardia Lamblia PCR Not Detected Stl P. shigelloides PCR Not Detected Stool Salmonella PCR Not Detected Stool Sapovirus (PCR) Not Detected Stl Shigella/EIEC PCR Not Detected St Y.enterocolitica PCR Not Detected Stool Vibrio (PCR) Not Detected Stl Vibrio cholerae PCR Not Detected Stl Norovirus GI/GII PCR Not Detected C. difficile Tox B Gene NEGATIVE Assessment and Plan (1) Small bowel obstruction: Status: Acute (2) JONES (acute kidney injury): Status: Acute Plan 81-year-old female with bilateral unspecified mononeuropathy of lower extremity, chronic kidney, spinal stenosis, neuropathy who presents to the emergency department for evaluation of right sided abdominal pain on 02/01/22 and noted to have high grade SBO, she underwent laparotomy on 02/[address] Weiss and remained intubated and went to ICU overnight. She was extubated 02/04 and latertrasfed to medical floor where she has continued to have issues with nausea, vomitting, malnutrition, electrolytes abnormalities . #Small-bowel obstruction, now likely post op ileus s/p laparotomy lysis of adhesion on 02/[address] Weiss. Post surgery was intubated and went to ICU and was extubated and transfered out the next day with NGT in place (as said to be very difficulty to insert) -NGT removed 02/07 and was started on liquid diet but since then has suffered nausea, vomitting, and diarrhea on multiple occasion. Xray of abomen on 02/10 and 02/13 show no evidence of obstruction possibly postop ileus. CT 02/11 no abscess, no bowel obstruction and again possible ileus. Cdif negative on 02/09 and 02/12, WBC was high on 02/13 (16) but normalized without antibiotics seen by GI they agree with postop ileus stool studies have been sent to rule out infectious etiology small-bowel follow-through showed prominent small bowel loops throughout the abdomen similar to previous study and abnormal transit of oral contrast in the small bowel taking 9.5 hours reaching terminal ileum Patient feeling better tolerating full liquid diet with no nausea, no vomiting no abdominal pain will advance diet to bland with Ensure supplements, recommend out of bed to chair encourage incentive spirometry, wean oxygen Care of plan discussed with patient and daughter at bedside JONES on CKD4--Creatine peaked at 2.44 on 02/05 , creatinine normalized to 1.2 , mild metabolic acidosis likely due to diarrhea will follow BMP add soda bicarb Acute respiratory failure with hypoxia post op, she was intuabted after surgery but was rapidly extubated--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 and h/o COPD, and atelectasis will gradually wean oxygen COPD no acute exacerbation continue scheduled breathing treatments and PRN UTI--finish course of ceftriaxone Neuropathy-- resume pregabalin when tolerate oral Hypomagnesemia--due to diarrhea, repeat magnesium 1.8 HypOkalemia--Corrected, follow BMP closely Chronic macrocytic anemia stable H&H, B12 306, folate 12.2 chronic back pain h/o spinal stenosis, continue Tylenol for pain control patient does not want opioid Mild to moderate protein calorie malnutrition--nutrition following, if tolerate diet, Ensure will be added and may need TPN as stated above Mood Continue sertraline mild transaminitis,holding atorvastatin, LFTs normal today Leukocytosis on 02/13 no fever, no tachycardia, no cough and abdominal pain and clinically looks well, no erythema at surgical site.. likely reactive and back on normal 02/14 witout intervention stage II pressure ulcer bilateral buttocks recommend frequent position change air loss mattress barrier cream Code status: Full code DVT prophylaxis:? Mechanical compression boots and heparin Continue hospitalization for treatment of small-bowel obstruction followed by postop ileus with persistent nausea vomiting and diarrhea Plan was discussed with grady, daughter at bedside. PT is recommending short term rehab when medically ready. Quality Stroke Does the patient have a stroke diagnosis?: No VTE Prior VTE?: No VTE Risk Level:: Medical - moderate - high VTE Device Contraindication: N/A - Device Ordered VTE Drug Contraindication: Treatment Not Indicated
[2022-02-17] MEDS: ondansetron HCL 4 MG/2 ML VIAL IVPUSH (14:29)
[2022-02-17 15:58] VITALS: BP 112/57; PULSE 78; RESP 17; TEMP 36.4; O2SAT 92
--- NOTE | 2022-02-17 18:26 | MHC.HEMONC ---
pt has vomited x3, diarrhea/loose stool x3, could not tolerate the food because she ordered fish. ordered bland diet and discussed with her daughters. notified. will cont to monitor
[2022-02-17 20:00] VITALS: BP 93/52; PULSE 81; RESP 18; TEMP 37.4; O2SAT 94
[2022-02-17] MEDS: Sodium Bicarbonate 650 MG TABLET PO (21:08)
[2022-02-17] MEDS: traZODone HCL 50 MG TABLET PO (21:08)
[2022-02-18] VITALS (8 sets, daily range): BP systolic 80–110; BP diastolic 46–62; PULSE 71–89; RESP 14–20; TEMP 35.9–36.8; O2SAT 94–97
[2022-02-18] MEDS: Acetaminophen 325 MG TABLET 650 MG PO ×3 (05:11→22:03)
[2022-02-18] MEDS: ondansetron HCL 4 MG/2 ML VIAL IVPUSH (05:11)
[2022-02-18] MEDS: Omeprazole 20 MG CAPSULE.DR PO (05:12)
[2022-02-18] MEDS: Heparin Sodium,Porcine 5,000 UNIT/ML VIAL 5000 UNIT SUBCUT ×2 (05:12→19:27)
--- NOTE | 2022-02-18 07:16 | P.PNGS_ITS ---
Subjective Subjective Date of Service: 02/18/22 Interval history: The patient reports both flatus and a bowel movement yesterday, but notes that after lunch, she became nauseated and bloated and had vomiting. She believes that her spinal stenosis pain and lack of a transfer chair is affecting her GI function and asked if this could be addressed. She otherwise denies headache, difficulty breathing or shortness of breath. Physical Exam Vital Signs: Vital Signs: Last Vital Signs Temp 97.9 F 02/18/22 03:40 Pulse 74 02/18/22 03:40 Resp 20 02/18/22 03:40 BP 97/55 L 02/18/22 03:40 Pulse Ox 96 02/18/22 03:40 O2 Del Method 02/18/22 03:40 O2 Flow Rate 1 02/18/22 03:40 FiO2 35 02/04/22 11:22 BMI result Body Mass Index 27.5 Abdominal incision is healing well Abdomen is nondistended, there is no evidence of infection or drainage No tenderness is present Objective Data Active Medications Acetaminophen (Acetaminophen Supp 650 Mg Supp.Rect) 650 mg [place] Q6H PRN PRN Reason: Pain, Mild (Pain Scale 1-3) Acetaminophen (Acetaminophen 325 Mg Tablet) 650 mg PO Q6H PRN PRN Reason: Pain, Mild (Pain Scale 1-3) Last Admin: 02/18/22 05:11 Dose: 650 mg Documented By: NAHOMI Allopurinol (Allopurinol 100 Mg Tablet) 100 mg PO DAILY [facility] Last Admin: 02/17/22 09:06 Dose: 100 mg Documented By: MELISSA Amlodipine Besylate (Amlodipine Besylate 5 Mg Tablet) 5 mg PO DAILY [facility]; Protocol Last Admin: 02/17/22 09:06 Dose: 5 mg Documented By: MELISSA Bisacodyl (Bisacodyl 10 Mg Supp.Rect) 10 mg [place] DAILY PRN PRN Reason: Constipation Heparin Sodium (Porcine) (Heparin Sodium,Porcine 5,000 Unit/Ml Vial) 5,000 unit SUBCUT Q12H [facility] Last Admin: 02/18/22 05:12 Dose: 5,000 unit Documented By: NAHOMI Acetaminophen (Ofirmev) 1,000 mg in 100 mls @ 400 mls/hr IV Q6H PRN PRN Reason: Pain, Severe (Pain Scale 7-10) Last Infusion: 02/14/22 05:18 Dose: 0 mls/hr Documented By: SHRAVAN Lidocaine (Lidocaine 4 % Patch Adh..Patch) 1 patch TRANSDERMA DAILY [facility]; Protocol Last Admin: 02/17/22 09:06 Dose: 1 patch Documented By: MELISSA Melatonin (Melatonin 3 Mg Tablet) 3 mg PO BEDTIME PRN PRN Reason: sleep Omeprazole (Omeprazole 20 Mg Capsule.Dr) 20 mg PO DAILY@0630 [facility] Last Admin: 02/18/22 05:12 Dose: 20 mg Documented By: NAHOMI Ondansetron HCl (Ondansetron Hcl 4 Mg/2 Ml Vial) 4 mg IVPUSH Q8H PRN PRN Reason: Nausea and Vomiting Last Admin: 02/18/22 05:11 Dose: 4 mg Documented By: NAHOMI Sertraline HCl (Sertraline Hcl 100 Mg Tablet) 100 mg PO DAILY [facility] Last Admin: 02/17/22 09:06 Dose: 100 mg Documented By: MELISSA Sodium Bicarbonate (Sodium Bicarbonate 650 Mg Tablet) 650 mg PO BID [facility] Stop: 02/19/22 09:01 Last Admin: 02/17/22 21:08 Dose: 650 mg Documented By: NAHOMI Sodium Chloride (0.9 % Sodium Chloride Flush 3 Ml Syringe) 3 ml IVFLUSH QSHIFT [facility] Last Admin: 02/17/22 21:08 Dose: 3 ml Documented By: NAHOMI Labs CBC & Chem 7: 02/14/22 05:54 02/15/22 06:44 Labs: Laboratory Results - last 24 hr 02/16/22 14:32 Stl C. cayetanensis PCR Not Detected Stool Rotavirus A PCR Not Detected Stl Adenov F 40/41 PCR Not Detected Stool Astrovirus (PCR) Not Detected Stool Campylobacter PCR Not Detected Stool Cryptosporidium PCR Not Detected Stl Sh Tox Pr E STEC PCR Not Detected Stool E coli O157 PCR Not applicable Stl Enterotoxigenic E PCR Not Detected Stool EPEC (PCR) Not Detected Stool EAEC (PCR) Not Detected Stl E. histolytica PCR Not Detected Stool Giardia Lamblia PCR Not Detected Stl P. shigelloides PCR Not Detected Stool Salmonella PCR Not Detected Stool Sapovirus (PCR) Not Detected Stl Shigella/EIEC PCR Not Detected St Y.enterocolitica PCR Not Detected Stool Vibrio (PCR) Not Detected Stl Vibrio cholerae PCR Not Detected Stl Norovirus GI/GII PCR Not Detected Procedures Date of Service Date of Service: 02/18/22 Progress Note: A&P Assessment and plan (1) Diarrhea: Status: Acute (2) Vomiting: Status: Acute (3) Malnutrition: Status: Acute (4) Frailty syndrome in geriatric patient: Status: Acute (5) Hiatal hernia: Status: Acute Plan The patient seems to be failing diet advancement is evidence by vomiting after lunch. Would obtain GI input and we discussed an option for TPN. Small-bowel follow-through showed slow transit consistent with a resolving ileus but no discrete surgical pathology. Time Spent With Patient Time: Total time spent is greater than 50% in coordination of care (as documented) at patient's floor/unit and/or counseling patient: Quality Stroke Does the patient have a stroke diagnosis?: No VTE Prior VTE?: No VTE Risk Level:: Medical - moderate - high VTE Device Contraindication: N/A - Device Ordered VTE Drug Contraindication: Treatment Not Indicated
[2022-02-18] MEDS: 0.9 % Sodium Chloride Flush 3 ML SYRINGE IVFLUSH (07:59)
[2022-02-18] MEDS: Sodium Bicarbonate 650 MG TABLET PO ×2 (07:59→22:03)
[2022-02-18] MEDS: Sertraline HCL 100 MG TABLET PO (07:59)
[2022-02-18] MEDS: amLODIPine Besylate 5 MG TABLET PO (07:59)
[2022-02-18] MEDS: Lidocaine 4 % Patch ADH..PATCH 1 PATCH TRANSDERMA (07:59)
[2022-02-18] MEDS: allopurinoL 100 MG TABLET PO (07:59)
[2022-02-18 09:51] LABS: Anion Gap 19 (12-20); Blood Urea Nitrogen 21 mg/dL (9-16); Calcium 8.3 mg/dL (8.4-10.2); Carbon Dioxide 20 mmol/L (22-29); Chloride 104 mmol/L (96-108); Estimated Glomerular Filt Rate 31; Glucose Random 104 mg/dL (60-115); Potassium 3.7 mmol/L (3.3-5.1); Sodium 139 mmol/L (135-145)
--- NOTE | 2022-02-18 11:26 | MHC.CLN ---
Addendum entered by Michelle Rodríguez, RD 02/18/22 14:57: RETURN VISIT TO REVIEW DINNER MEAL ORDER WITH PT AND FAMILY MEMBER GSR REVIEWED DINNER ORDER WITH THIS DIRECTOR OF STAFF DEVELOPMENT-PT CONFIRMED ORDER BUT REQUESTED TO CANCEL THE [place] PT CONSUMED APPROX 25% LUNCH WITHOUT ANY NAUSEA OR VOMITING. PT C/O GAS -NOTIFIED NURSE WHO ENTERED ROOM SHORTLY AFTER INTERVIEW PT WITH DON AND ENSURE CLEAR AT BEDSIDE Original Note: F/U PO INTAKE 50% AVG MET WITH PATIENT AND FAMILY REGARDING FOOD PREFERENCES AT MD REQUEST PT WITH DIFFICULTIES MAKING FOOD CHOICES R/T RECENT N/V DIET RX: BLAND NO CAFFEINE-APPROPRIATE REVIEWED BLAND DIET WITH PATIENT AND FAMILY OBTAINED FOOD PREFERENCES LIST FROM PATIENT AND FAMILY PATIENT GIVEN PAPER MENU WITH NON BLAND FOODS CROSSED OFF GSR AND KITCHEN NOTIFIED APPROVED LUNCH ORDER FOR PT TODAY PT REPORTED SHE DISLIKES ENSURE SUPPLEMENT PT AGREED TO TRIAL ENSURE CLEAR SUPPLEMENT AT BEDSIDE MONITOR PO INTAKE CLOSELY OBTAIN CURRENT WEIGHT FOLLOWING WITH TEAM
--- NOTE | 2022-02-18 13:24 | P.PNNP_ITS ---
Subjective Subjective Date of Service: 02/18/22 Interval history: no acute events Cr 1.6mg/L near baseline PO intake better Physical Exam 2 Vital Signs: Vital Signs: Last Vital Signs Temp 97.4 F 02/18/22 11:19 Pulse 89 02/18/22 11:19 Resp 20 02/18/22 11:19 BP 110/62 02/18/22 12:10 Pulse Ox 97 02/18/22 10:19 O2 Del Method 02/18/22 07:13 O2 Flow Rate 1 02/18/22 07:13 FiO2 35 02/04/22 11:22 BMI result Body Mass Index 27.5 Const: Other: General: alert, or iented to self, pl david, year neck no JVD Resp:? clear t o auscultation, no wheeze or rales a nd no accessory mu scle use CVS: S1,S 2,RRR GI:?? abdome n soft nontender, regular BS Skin: N o rash, stage 2 pr essure ulcer both buttock --see nurs ing for detail ext remities bilateral pitting edema bot h feet mild hypere jeb dorsum of righ t foot good pulses , cold extremities , unchanged from yesterday MSK: no tenderness on spin e Neuro:? motor gr ossly intact Psych : flat affect Objective Data Labs CBC & Chem 7: 02/14/22 05:54 02/18/22 08:49 Labs: Laboratory Results - last 24 hr 02/18/22 08:49 Sodium 139 Potassium 3.7 Chloride 104 Carbon Dioxide 20 L Anion Gap 19 BUN 21 H Creatinine 1.62 H Estim Creat Clear Calc 23.0 Estimated GFR 31 Random Glucose 104 Calcium 8.3 L Microbiology Microbiology Results: Microbiology 02/01/22 21:06 Blood - Venous Blood Culture - Final No growth after 5 days. 02/01/22 19:26 Blood - Venous Blood Culture - Final No growth after 5 days. 02/02/22 00:00 Urine Catheterized - Straight Catheter Urine Culture - Final Procedures Date of Service Date of Service: 02/18/22 Assessment & Plan Assessment and plan (1) JONES (acute kidney injury): Status: Acute Assessment and Plan: 1. JONES: hemodynamic JONES in the setting of diarrhea and poor PO intake. 2. CKD stage IIIa BL Cr probably 1.4mg/dL Plan: - consider 100cc/hr of LR x1L dose today - tolerating amlodipine 5mg well. (2) Chronic kidney disease: Status: Acute Time Spent With Patient Time: Total time spent is greater than 50% in coordination of care (as documented) at patient's floor/unit and/or counseling patient: Progress Note: Quality Stroke Does the patient have a stroke diagnosis?: No
--- NOTE | 2022-02-18 13:26 | P.PNIM_ITS ---
Subjective Subjective Date of Service: 02/18/22 Interval History: events from last night reviewed patient had fish for lunch yesterday and was unable to tolerate had couple episodes of nausea vomiting, denies abdominal pain feels epigastric tightness related to gas buildup had 3 bowel movement in last 24 hours, no fevers chills no other acute complaints patient is concerned that she is mostly in bed and wishing to be discharged to rehab facility 3 daughters at bedside with multiple concerns about her bland diet. Review of Systems [employer] no headache no dizziness CVS no chest pain, no palpitation respiratory no cough no shortness of breath no urinary symptoms Review of Systems: Yes all other systems are reviewed and are negative Physical Exam Vital Signs: Vital Signs: Last Vital Signs Temp 97.4 F 02/18/22 11:19 Pulse 89 02/18/22 11:19 Resp 20 02/18/22 11:19 BP 110/62 02/18/22 12:10 Pulse Ox 97 02/18/22 10:19 O2 Del Method 02/18/22 07:13 O2 Flow Rate 1 02/18/22 07:13 FiO2 35 02/04/22 11:22 BMI result Body Mass Index 27.5 Const: Other: General: alert, oriented , no acute distress neck no JVD Resp:? clear to auscultation, no wheeze or rales and no accessory muscle use CVS: S1,S2,RRR GI:?? abdomen soft nontender, normal bowel sounds Skin: No rash, stage 2 pressure ulcer both buttock , no drainage healing well extremities bilateral pitting edema both feet, right foot does discoloration with cold extremities chronic as per family MSK: no tenderness Neuro:? motor grossly intact Psych: appropriate affect Objective Data Active Medications Acetaminophen (Acetaminophen Supp 650 Mg Supp.Rect) 650 mg [place] Q6H PRN PRN Reason: Pain, Mild (Pain Scale 1-3) Acetaminophen (Acetaminophen 325 Mg Tablet) 650 mg PO Q6H PRN PRN Reason: Pain, Mild (Pain Scale 1-3) Last Admin: 02/18/22 05:11 Dose: 650 mg Documented By: NAHOMI Allopurinol (Allopurinol 100 Mg Tablet) 100 mg PO DAILY [facility] Last Admin: 02/18/22 07:59 Dose: 100 mg Documented By: KIMBERLY Amlodipine Besylate (Amlodipine Besylate 5 Mg Tablet) 5 mg PO DAILY [facility]; Protocol Last Admin: 02/18/22 07:59 Dose: 5 mg Documented By: KIMBERLY Bisacodyl (Bisacodyl 10 Mg Supp.Rect) 10 mg [place] DAILY PRN PRN Reason: Constipation Heparin Sodium (Porcine) (Heparin Sodium,Porcine 5,000 Unit/Ml Vial) 5,000 unit SUBCUT Q12H [facility] Last Admin: 02/18/22 05:12 Dose: 5,000 unit Documented By: NAHOMI Acetaminophen (Ofirmev) 1,000 mg in 100 mls @ 400 mls/hr IV Q6H PRN PRN Reason: Pain, Severe (Pain Scale 7-10) Last Infusion: 02/14/22 05:18 Dose: 0 mls/hr Documented By: SHRAVAN Lidocaine (Lidocaine 4 % Patch Adh..Patch) 1 patch TRANSDERMA DAILY [facility]; Protocol Last Admin: 02/18/22 07:59 Dose: 1 patch Documented By: KIMBERLY Melatonin (Melatonin 3 Mg Tablet) 3 mg PO BEDTIME PRN PRN Reason: sleep Omeprazole (Omeprazole 20 Mg Capsule.Dr) 20 mg PO DAILY@0630 [facility] Last Admin: 02/18/22 05:12 Dose: 20 mg Documented By: NAHOMI Ondansetron HCl (Ondansetron Hcl 4 Mg/2 Ml Vial) 4 mg IVPUSH Q8H PRN PRN Reason: Nausea and Vomiting Last Admin: 02/18/22 05:11 Dose: 4 mg Documented By: NAHOMI Sertraline HCl (Sertraline Hcl 100 Mg Tablet) 100 mg PO DAILY [facility] Last Admin: 02/18/22 07:59 Dose: 100 mg Documented By: KIMBERLY Sodium Bicarbonate (Sodium Bicarbonate 650 Mg Tablet) 650 mg PO BID [facility] Stop: 02/19/22 09:01 Last Admin: 02/18/22 07:59 Dose: 650 mg Documented By: KIMBERLY Sodium Chloride (0.9 % Sodium Chloride Flush 3 Ml Syringe) 3 ml IVFLUSH QSHIFT [facility] Last Admin: 02/18/22 07:59 Dose: 3 ml Documented By: KIMBERLY Labs CBC & Chem 7: 02/14/22 05:54 02/18/22 08:49 Labs: Laboratory Results - last 24 hr 02/18/22 08:49 Anion Gap 19 Estim Creat Clear Calc 23.0 Estimated GFR 31 Random Glucose 104 Calcium 8.3 L Assessment and Plan (1) Small bowel obstruction: Status: Acute (2) JONES (acute kidney injury): Status: Acute Plan 81-year-old female with bilateral unspecified mononeuropathy of lower extremity, chronic kidney, spinal stenosis, neuropathy who presents to the emergency department for evaluation of right sided abdominal pain on 02/01/22 and noted to have high grade SBO, she underwent laparotomy on 02/[address] Weiss and remained intubated and went to ICU overnight. She was extubated 02/04 and latertrasfed to medical floor where she has continued to have issues with nausea, vomitting, malnutrition, electrolytes abnormalities . #Small-bowel obstruction, now likely post op ileus slowly resolving s/p laparotomy lysis of adhesion on 02/[address] Weiss. Post surgery was intubated and went to ICU and was extubated and transfered out the next day with NGT in place -NGT removed 02/07 and was started on liquid diet but since then has suffered nausea, vomitting, and diarrhea on multiple occasion. Xray of abomen on 02/10 and 02/13 show no evidence of obstruction possibly postop ileus. CT abd 02/11 no abscess, no bowel obstruction and again possible ileus. Cdif negative on 02/09 and 02/12, WBC was high on 02/13 (16) but normalized without antibiotics seen by GI they agree with postop ileus stool studies neg. small-bowel follow-through showed prominent small bowel loops throughout the abdomen similar to previous study and abnormal transit of oral contrast in the small bowel taking 9.5 hours reaching terminal ileum Patient feeling better tolerating bland diet, spoke with v groove cutter she picked up lunch and dinner for the patient since bland diet does include orange juice and fish which patient is intolerant of explained to patient's 3 daughter that it was not an allergic reaction likely cannot tolerate orange juice and fish patient had 1 episode of vomiting after eating breakfast this morning otherwise has been doing fine rest of the day plan is for patient to be discharged to rehab facility when bed is available an d renal function improves JONES on CKD4--Creatine peaked at 2.44 on 02/05 , creatinine normalized to 1.2 , today noted to have creatinine of 1.6 likely due to nausea vomiting and diarrhea last 24 hours will give IV fluids 1 L repeat BMP at a.m., soda bicarb time for dosages added due to acidosis related to diarrhea Acute respiratory failure with hypoxia post op, she was intuabted after surgery but was rapidly extubated--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 and h/o COPD, and atelectasis gradually wean oxygen, patient not on home oxygen COPD no acute exacerbation continue scheduled breathing treatments and PRN UTI--finish course of ceftriaxone Neuropathy-- resume pregabalin when tolerate oral Hypomagnesemia--due to diarrhea, repeat magnesium 1.8 HypOkalemia--Corrected, follow BMP closely Chronic macrocytic anemia stable H&H, B12 306, folate 12.2 chronic back pain h/o spinal stenosis, continue Tylenol for pain control patient does not want opioid Mild to moderate protein calorie malnutrition--nutrition following, if tolerate diet, Ensure will be added and may need TPN as stated above Mood Continue sertraline mild transaminitis, resolved resume Lipitor upon discharge Leukocytosis on 02/13 no fever, no tachycardia, no cough and abdominal pain and clinically looks well, no erythema at surgical site.. likely reactive and back on normal 02/14 witout intervention stage II pressure ulcer bilateral buttocks recommend frequent position change air loss mattress barrier cream Code status: Full code DVT prophylaxis:? Mechanical compression boots and heparin Continue hospitalization for treatment of small-bowel obstruction followed by postop ileus with persistent nausea vomiting and diarrhea Plan was discussed with grady, daughter at bedside. PT is recommending short term rehab case managers is arranging for safe discharge. Quality Stroke Does the patient have a stroke diagnosis?: No VTE Prior VTE?: No VTE Risk Level:: Medical - moderate - high VTE Device Contraindication: N/A - Device Ordered VTE Drug Contraindication: Treatment Not Indicated
[2022-02-18] MEDS: Lactated Ringers 1,000 ML 80 ML IVCONT (14:02)
--- NOTE | 2022-02-18 14:29 | MHC.CM.PN ---
Addendum entered by Soledad Marvin 02/18/22 14:50: Per MD creatinine is elevated. DC oh hold. Patient requires IV fluids. Original Note: Patient is ready for discharge today per MD rounds. [facility] has requested Insurance Authorization from [facility]. Auth is pending. [facility] is 1st choice for STR if [facility] denies Acute rehab Auth. The will review Monday if the patient has not discharged to [facility]. Patient will transport via BLS.
[2022-02-18] MEDS: traZODone HCL 50 MG TABLET PO (22:04)
[2022-02-19] MEDS: 0.9 % Sodium Chloride Flush 3 ML SYRINGE IVFLUSH ×3 (00:08→21:16)
[2022-02-19 03:59] VITALS: BP 100/49; PULSE 69; RESP 16; TEMP 36.6; O2SAT 99
[2022-02-19] MEDS: Heparin Sodium,Porcine 5,000 UNIT/ML VIAL 5000 UNIT SUBCUT ×2 (06:20→17:31)
[2022-02-19] MEDS: Omeprazole 20 MG CAPSULE.DR PO (06:20)
--- NOTE | 2022-02-19 06:24 | PC.NURSE ---
creams ordered for rash unavailable at this time, will pass to next RN to administer
[2022-02-19 07:34] LABS: Anion Gap 20 (12-20); Blood Urea Nitrogen 29 mg/dL (9-16); Calcium 8.2 mg/dL (8.4-10.2); Carbon Dioxide 15 mmol/L (22-29); Chloride 107 mmol/L (96-108); Creatinine Clr Calc Pharmacy 21.3; Estimated Glomerular Filt Rate 28; Glucose Random 94 mg/dL (60-115); Potassium 3.9 mmol/L (3.3-5.1); Sodium 138 mmol/L (135-145)
[2022-02-19 07:42] VITALS: BP 107/67; PULSE 80; RESP 20; TEMP 36.9; O2SAT 98
[2022-02-19] MEDS: amLODIPine Besylate 5 MG TABLET PO (08:59)
[2022-02-19] MEDS: Sodium Bicarbonate 650 MG TABLET PO (08:59)
[2022-02-19] MEDS: Sertraline HCL 100 MG TABLET PO (08:59)
[2022-02-19] MEDS: Lidocaine 4 % Cream KIT 1 APPL TOPICAL (08:59)
[2022-02-19] MEDS: allopurinoL 100 MG TABLET PO (08:59)
[2022-02-19] MEDS: Lactated Ringers 1,000 ML 125 ML IVCONT (08:59)
[2022-02-19] MEDS: Mineral Oil/Petrolatum,White 106 GM Tube 1 APPL TOPICAL ×2 (09:00→22:58)
[2022-02-19] MEDS: Lidocaine 4 % Patch ADH..PATCH 1 PATCH TRANSDERMA (09:00)
[2022-02-19 09:05] VITALS: BP 113/59; PULSE 81
--- NOTE | 2022-02-19 10:13 | PM.PNGS ---
Subjective Subjective Date of Service: 02/19/22 Interval history: The patient is seen with her daughter Asha at bedside. Patient has multiple complaints including worsening of a bedsore; she states that she was incontinent of urine and waited over 2 hours for nursing help; she states she is tolerating her diet but did not eat lunch or dinner yesterday because she was not hungry and also had the incontinence issues. She is hopeful to get out of bed to the recliner today. She denies chest pain, difficulty breathing or shortness of breath. Her back pain is tolerable today. Physical Exam Vital Signs: Vital Signs: Last Vital Signs Temp 98.5 F 02/19/22 07:42 Pulse 81 02/19/22 09:05 Resp 20 02/19/22 07:42 BP 113/59 L 02/19/22 09:05 Pulse Ox 98 02/19/22 07:42 O2 Del Method 02/19/22 07:42 O2 Flow Rate 2 02/19/22 03:59 FiO2 35 02/04/22 11:22 BMI result Body Mass Index 27.5 Abdominal incision is healing well. Abdomen is soft and nontender. Objective Data Active Medications Acetaminophen (Acetaminophen Supp 650 Mg Supp.Rect) 650 mg [place] Q6H PRN PRN Reason: Pain, Mild (Pain Scale 1-3) Acetaminophen (Acetaminophen 325 Mg Tablet) 650 mg PO Q6H PRN PRN Reason: Pain, Mild (Pain Scale 1-3) Last Admin: 02/18/22 22:03 Dose: 650 mg Documented By: SHRAVAN Allopurinol (Allopurinol 100 Mg Tablet) 100 mg PO DAILY [facility] Last Admin: 02/19/22 08:59 Dose: 100 mg Documented By: NORMA Amlodipine Besylate (Amlodipine Besylate 5 Mg Tablet) 5 mg PO DAILY [facility]; Protocol Last Admin: 02/19/22 08:59 Dose: 5 mg Documented By: NORMA Bisacodyl (Bisacodyl 10 Mg Supp.Rect) 10 mg [place] DAILY PRN PRN Reason: Constipation Heparin Sodium (Porcine) (Heparin Sodium,Porcine 5,000 Unit/Ml Vial) 5,000 unit SUBCUT Q12H [facility] Last Admin: 02/19/22 06:20 Dose: 5,000 unit Documented By: DELVIN Lactated Ringer's (Lr) 1,000 mls @ 125 mls/hr IVCONT .Q8H [facility] Stop: 02/19/22 20:29 Last Admin: 02/19/22 08:59 Dose: 125 mls/hr Documented By: NORMA Lidocaine (Lidocaine 4 % Patch Adh..Patch) 1 patch TRANSDERMA DAILY [facility]; Protocol Last Admin: 02/19/22 09:00 Dose: 1 patch Documented By: NORMA Melatonin (Melatonin 3 Mg Tablet) 3 mg PO BEDTIME PRN PRN Reason: sleep Multi-Ingred Cream/Lotion/Oil/Oint (Mineral Oil/Petrolatum,White 106 Gm Tube) 1 appl TOPICAL BID [facility]; Protocol Last Admin: 02/19/22 09:00 Dose: 1 appl Documented By: NORMA Omeprazole (Omeprazole 20 Mg Capsule.Dr) 20 mg PO DAILY@0630 [facility] Last Admin: 02/19/22 06:20 Dose: 20 mg Documented By: DELVIN Ondansetron HCl (Ondansetron Hcl 4 Mg/2 Ml Vial) 4 mg IVPUSH Q8H PRN PRN Reason: Nausea and Vomiting Last Admin: 02/18/22 05:11 Dose: 4 mg Documented By: NAHOMI Sertraline HCl (Sertraline Hcl 100 Mg Tablet) 100 mg PO DAILY [facility] Last Admin: 02/19/22 08:59 Dose: 100 mg Documented By: NORMA Simethicone (Simethicone 80 Mg Tab.Chew) 80 mg PO BID PRN PRN Reason: Gas Sodium Chloride (0.9 % Sodium Chloride Flush 3 Ml Syringe) 3 ml IVFLUSH QSHIFT [facility] Last Admin: 02/19/22 09:00 Dose: 3 ml Documented By: NORMA Trazodone HCl (Trazodone Hcl 50 Mg Tablet) 50 mg PO BEDTIME PRN PRN Reason: Insomnia Last Admin: 02/18/22 22:04 Dose: 50 mg Documented By: FOSTEKR Zinc Acetate/Diphenhydramine (Diphenhydramine Hcl 2 % Cream 28 Gm Tube) 1 appl TOPICAL QID PRN; Protocol PRN Reason: Itching Labs CBC & Chem 7: 02/14/22 05:54 02/19/22 06:08 Labs: Laboratory Results - last 24 hr 02/19/22 06:08 Anion Gap 20 Estim Creat Clear Calc 21.3 Estimated GFR 28 Random Glucose 94 Calcium 8.2 L Procedures Date of Service Date of Service: 02/19/22 Progress Note: A&P Assessment and plan (1) Malnutrition: Status: Acute (2) Frailty syndrome in geriatric patient: Status: Acute (3) Hiatal hernia: Status: Acute (4) COPD (chronic obstructive pulmonary disease): Status: Acute (5) Bed sore: Status: Acute (6) Spinal stenosis: Status: Acute Plan I have reassured the patient and her daughter that I will speak with nursing regarding activity and responsiveness. Continue diet as tolerated. Awaiting placement. Time Spent With Patient Time: Total time spent is greater than 50% in coordination of care (as documented) at patient's floor/unit and/or counseling patient: Quality Stroke Does the patient have a stroke diagnosis?: No VTE Prior VTE?: No VTE Risk Level:: Medical - moderate - high VTE Device Contraindication: N/A - Device Ordered VTE Drug Contraindication: Treatment Not Indicated
[2022-02-19] MEDS: Acetaminophen 325 MG TABLET 650 MG PO ×2 (10:53→21:15)
[2022-02-19] MEDS: Simethicone 80 MG TAB.CHEW PO (10:54)
[2022-02-19 12:00] VITALS: BP 100/55; PULSE 84; RESP 20; TEMP 37.4; O2SAT 95
--- NOTE | 2022-02-19 15:12 | PM.PNNEP ---
Subjective Subjective Date of Service: 02/19/22 Interval history: ongoing diarrhea worsening acidsois due to it Physical Exam Vital Signs: Vital Signs: Last Vital Signs Temp 99.3 F 02/19/22 12:00 Pulse 84 02/19/22 12:00 Resp 20 02/19/22 12:00 BP 100/55 L 02/19/22 12:00 Pulse Ox 95 02/19/22 12:00 O2 Del Method 02/19/22 12:00 O2 Flow Rate 1 02/19/22 12:00 FiO2 35 02/04/22 11:22 BMI result Body Mass Index 27.5 Const: Other: General: alert, or iented to self, pl david, year neck no JVD Resp:? clear t o auscultation, no wheeze or rales a nd no accessory mu scle use CVS: S1,S 2,RRR GI:?? abdome n soft nontender, regular BS Skin: N o rash, stage 2 pr essure ulcer both buttock --see nurs ing for detail ext remities bilateral pitting edema bot h feet mild hypere jeb dorsum of righ t foot good pulses , cold extremities , unchanged from yesterday MSK: no tenderness on spin e Neuro:? motor gr ossly intact Psych : flat affect Objective Data Labs CBC & Chem 7: 02/14/22 05:54 02/19/22 06:08 Labs: Laboratory Results - last 24 hr 02/19/22 06:08 Sodium 138 Potassium 3.9 Chloride 107 Carbon Dioxide 15 L Anion Gap 20 BUN 29 H Creatinine 1.76 H Estim Creat Clear Calc 21.3 Estimated GFR 28 Random Glucose 94 Calcium 8.2 L Prealbumin 13.0 L Microbiology Microbiology Results: Microbiology 02/01/22 21:06 Blood - Venous Blood Culture - Final No growth after 5 days. 02/01/22 19:26 Blood - Venous Blood Culture - Final No growth after 5 days. 02/02/22 00:00 Urine Catheterized - Straight Catheter Urine Culture - Final Procedures Date of Service Date of Service: 02/19/22 Assessment & Plan Assessment and plan (1) JONES (acute kidney injury): Status: Acute Assessment and Plan: 1. JONES: hemodynamic JONES in the setting of diarrhea and poor PO intake. 2. CKD stage IIIa BL Cr probably 1.4mg/dL 3. Nongap acidosis 2/2 CKD and Diarrhea Plan: - c/w LR at 125cc/hr - started nabicarb 1300mg TID - tolerating amlodipine 5mg well. (2) Chronic kidney disease: Status: Acute Time Spent With Patient Time: Total time spent is greater than 50% in coordination of care (as documented) at patient's floor/unit and/or counseling patient: Progress Note: Quality Stroke Does the patient have a stroke diagnosis?: No
--- NOTE | 2022-02-19 15:30 | HO.PM.IMPN ---
Subjective Subjective Date of Service: 02/19/22 Interval History: Tolerating solid diet; hungry. Does note some diarrhea and gas. No abd pain. NO fever. Review of Systems Review of Systems: Yes all other systems are reviewed and are negative Physical Exam Vital Signs: Vital Signs: Last Vital Signs Temp 99.3 F 02/19/22 12:00 Pulse 84 02/19/22 12:00 Resp 20 02/19/22 12:00 BP 100/55 L 02/19/22 12:00 Pulse Ox 95 02/19/22 12:00 O2 Del Method 02/19/22 12:00 O2 Flow Rate 1 02/19/22 12:00 FiO2 35 02/04/22 11:22 BMI result Body Mass Index 27.5 Gen: in no acute distress HEENT: sclera anicteric, moist mucus membranes Neck: supple Lungs: clear to auscultation bilaterally Heart: regular rate and rhythm, no murmurs Abd: soft, non-tender, non-distended, midline laparotomy wound with cristo clean/dry/intact Ext: 1+ edema of legs, discolored R toes [chronic] Skin: warm/well-perfused, stage 2 pressure ulcers bilateral buttocks Neuro: alert and oriented x3, no focal findings Psych: appropriate affect Objective Data Active Medications Acetaminophen (Acetaminophen Supp 650 Mg Supp.Rect) 650 mg [place] Q6H PRN PRN Reason: Pain, Mild (Pain Scale 1-3) Acetaminophen (Acetaminophen 325 Mg Tablet) 650 mg PO Q6H PRN PRN Reason: Pain, Mild (Pain Scale 1-3) Last Admin: 02/19/22 10:53 Dose: 650 mg Documented By: NORMA Allopurinol (Allopurinol 100 Mg Tablet) 100 mg PO DAILY [facility] Last Admin: 02/19/22 08:59 Dose: 100 mg Documented By: NORMA Amlodipine Besylate (Amlodipine Besylate 5 Mg Tablet) 5 mg PO DAILY [facility]; Protocol Last Admin: 02/19/22 08:59 Dose: 5 mg Documented By: NORMA Bisacodyl (Bisacodyl 10 Mg Supp.Rect) 10 mg [place] DAILY PRN PRN Reason: Constipation Heparin Sodium (Porcine) (Heparin Sodium,Porcine 5,000 Unit/Ml Vial) 5,000 unit SUBCUT Q12H [facility] Last Admin: 02/19/22 06:20 Dose: 5,000 unit Documented By: DELVIN Lactated Ringer's (Lr) 1,000 mls @ 125 mls/hr IVCONT .Q8H [facility] Stop: 02/19/22 20:29 Last Admin: 02/19/22 08:59 Dose: 125 mls/hr Documented By: NORMA Lidocaine (Lidocaine 4 % Patch Adh..Patch) 1 patch TRANSDERMA DAILY [facility]; Protocol Last Admin: 02/19/22 09:00 Dose: 1 patch Documented By: NORMA Loperamide HCl (Loperamide Hcl 2 Mg Capsule) 2 mg PO Q4H PRN PRN Reason: Diarrhea Melatonin (Melatonin 3 Mg Tablet) 3 mg PO BEDTIME PRN PRN Reason: sleep Multi-Ingred Cream/Lotion/Oil/Oint (Mineral Oil/Petrolatum,White 106 Gm Tube) 1 appl TOPICAL BID [facility]; Protocol Last Admin: 02/19/22 09:00 Dose: 1 appl Documented By: NORMA Omeprazole (Omeprazole 20 Mg Capsule.Dr) 20 mg PO DAILY@0630 [facility] Last Admin: 02/19/22 06:20 Dose: 20 mg Documented By: DELVIN Ondansetron HCl (Ondansetron Hcl 4 Mg/2 Ml Vial) 4 mg IVPUSH Q8H PRN PRN Reason: Nausea and Vomiting Last Admin: 02/18/22 05:11 Dose: 4 mg Documented By: NAHOMI Sertraline HCl (Sertraline Hcl 100 Mg Tablet) 100 mg PO DAILY [facility] Last Admin: 02/19/22 08:59 Dose: 100 mg Documented By: NORMA Simethicone (Simethicone 80 Mg Tab.Chew) 80 mg PO BID PRN PRN Reason: Gas Last Admin: 02/19/22 10:54 Dose: 80 mg Documented By: NORMA Sodium Chloride (0.9 % Sodium Chloride Flush 3 Ml Syringe) 3 ml IVFLUSH QSHIFT [facility] Last Admin: 02/19/22 09:00 Dose: 3 ml Documented By: NORMA Trazodone HCl (Trazodone Hcl 50 Mg Tablet) 50 mg PO BEDTIME PRN PRN Reason: Insomnia Last Admin: 02/18/22 22:04 Dose: 50 mg Documented By: HO.FOSTEKR Zinc Acetate/Diphenhydramine (Diphenhydramine Hcl 2 % Cream 28 Gm Tube) 1 appl TOPICAL QID PRN; Protocol PRN Reason: Itching Labs CBC & Chem 7: 02/14/22 05:54 02/19/22 06:08 Labs: Laboratory Results - last 24 hr 02/19/22 06:08 Anion Gap 20 Estim Creat Clear Calc 21.3 Estimated GFR 28 Random Glucose 94 Calcium 8.2 L Prealbumin 13.0 L Assessment and Plan (1) Small bowel obstruction: Status: Acute (2) JONES (acute kidney injury): Status: Acute Plan d#19 81yo F with unspecified mononeuropathy of BLE, CKD, spinal stenosis admitted for high-grade SBO 02/01/22, s/p ex-lap/TESHA 02/03 after which she remained intubated in the ICU; extubated 02/04 then transferred to the medical service where she had a prolonged course complicated by N/V, malnutrition, and electrolyte abnormalities due to postop ileus # SBO, postop ileus, resolving - ex-lap TESHA 02/03, postop went to ICU intubated - extubated 02/04, transferred to floor - NGT out 02/07 then started on liquid diet, complicated by N/V/D - AXR 02/10 + 02/13 with no obstruction; possible postop ileus - CT A/P 02/11 no abscess, no SBO; possible ileus - Cdiff 02/09 + 10 negative - WBC count normalized without ABX - per GI impression also was of postop ileus; SBFT showed prominent SB loops and delayed transit of oral contrast - now tolerating bland diet - plan is for patient to be discharged to rehab facility when bed is available and renal function improves # JONES on CKD4 # metabolic acidosis - Scr peaked at 2.44 on 02/05, creatinine normalized to 1.2 but now up to 1.76 likely due to vomiting + diarrhea. giving IV fluids as well as PO bicarbonate, Nephrology following # acute hypoxic resp failure - extubated 02/04, likely has 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; also has COPD - weaning O2 gradually, currently only on 1L # COPD without acute exacerbation - nebs # UTI - completed ceftriaxone # hypoMg - repleted # hypoK - repleted # leucocytosis - resolved # chronic macrocytic anemia - H+H stable, B12 + folate normal # neuropathy # chronic back pain - resume pregabalin # mod pr/elise malnutrition - Ensure # st 2 pressure ulcers bilateral buttocks - air loss mattress, barrier cream, position changes # VTE ppx: [facility] Quality Stroke Does the patient have a stroke diagnosis?: No VTE Prior VTE?: No VTE Risk Level:: Medical - moderate - high VTE Device Contraindication: N/A - Device Ordered VTE Drug Contraindication: Treatment Not Indicated
[2022-02-19] MEDS: Sodium Bicarbonate 650 MG TABLET 1300 MG PO (15:36)
[2022-02-19 15:48] VITALS: BP 108/59; PULSE 86; RESP 18; TEMP 37.4; O2SAT 98
--- NOTE | 2022-02-19 18:37 | PC.NURSE ---
Order placed for 1,500 mlL lactated ringers. Scanned and infused 1,000 mL of lactated ringers and for remaining 500 ml I was unable to scan the next 1,000 mL bag due to exceeding 1,500mL. I also tried to scan a 500 mL bag but that medication was not on patients med list. At 18:00, 500 mL bag of LR was hung to satisfy the remaining [address]'s order.
[2022-02-19 20:00] VITALS: BP 101/54; PULSE 76; RESP 17; TEMP 36.6; O2SAT 93
[2022-02-19] MEDS: Pregabalin 75 MG CAPSULE PO (21:16)
[2022-02-19] MEDS: traZODone HCL 50 MG TABLET PO (21:48)
[2022-02-19] MEDS: Loperamide HCl 2 MG CAPSULE PO (23:01)
[2022-02-20] VITALS: BP 103/54; PULSE 75; RESP 15; TEMP 36.6; O2SAT 91
[2022-02-20] MEDS: Omeprazole 20 MG CAPSULE.DR PO (05:29)
[2022-02-20] MEDS: Heparin Sodium,Porcine 5,000 UNIT/ML VIAL 5000 UNIT SUBCUT ×2 (05:29→17:04)
[2022-02-20 07:41] VITALS: BP 93/53; PULSE 78; RESP 12; TEMP 36.6; O2SAT 95
[2022-02-20 08:01] LABS: Anion Gap 17 (12-20); Blood Urea Nitrogen 29 mg/dL (9-16); Calcium 8.1 mg/dL (8.4-10.2); Carbon Dioxide 20 mmol/L (22-29); Chloride 105 mmol/L (96-108); Estimated Glomerular Filt Rate 29; Glucose Random 93 mg/dL (60-115); Magnesium 1.2 mg/dL (1.6-2.6); Potassium 3.6 mmol/L (3.3-5.1); Sodium 138 mmol/L (135-145)
[2022-02-20] MEDS: Pregabalin 75 MG CAPSULE PO ×2 (08:38→20:49)
[2022-02-20] MEDS: allopurinoL 100 MG TABLET PO (08:38)
[2022-02-20] MEDS: Magnesium Oxide 400 MG TABLET PO ×2 (08:38→17:04)
[2022-02-20] MEDS: Sertraline HCL 100 MG TABLET PO (08:38)
[2022-02-20] MEDS: Lidocaine 4 % Patch ADH..PATCH 1 PATCH TRANSDERMA (08:38)
[2022-02-20] MEDS: Magnesium Sulfate/H2O 2 GM/50 ML PIGGYBACK IV (08:38)
[2022-02-20] MEDS: 0.9 % Sodium Chloride Flush 3 ML SYRINGE IVFLUSH ×3 (08:43→20:50)
[2022-02-20] MEDS: Mineral Oil/Petrolatum,White 106 GM Tube 1 APPL TOPICAL ×2 (08:56→20:49)
--- NOTE | 2022-02-20 10:14 | PM.PNGS ---
Subjective Subjective Date of Service: 02/20/22 Interval history: The patient was seen while she was eating breakfast. She initially reported that she was doing well and tolerating breakfast when she suddenly placed down her tea cup and started to regurgitate muffin and tea. There was no bilious material nor blood. She went on to say that this has been happening intermittently, and she does note at times it is bilious but, predominantly it is non bilious. Physical Exam Vital Signs: Vital Signs: Last Vital Signs Temp 97.8 F 02/20/22 07:41 Pulse 78 02/20/22 07:41 Resp 12 02/20/22 07:41 BP 93/53 L 02/20/22 07:41 Pulse Ox 95 02/20/22 07:41 O2 Del Method 02/20/22 07:41 O2 Flow Rate 1 02/19/22 15:48 FiO2 35 02/04/22 11:22 BMI result Body Mass Index 27.5 Patient is nontoxic She is speaking in full sentences and is noted she regurgitated mostly chewed muffin and tea, no blood and no bile Objective Data Active Medications Acetaminophen (Acetaminophen Supp 650 Mg Supp.Rect) 650 mg [place] Q6H PRN PRN Reason: Pain, Mild (Pain Scale 1-3) Acetaminophen (Acetaminophen 325 Mg Tablet) 650 mg PO Q6H PRN PRN Reason: Pain, Mild (Pain Scale 1-3) Last Admin: 02/19/22 21:15 Dose: 650 mg Documented By: SHRAVAN Allopurinol (Allopurinol 100 Mg Tablet) 100 mg PO DAILY [facility] Last Admin: 02/20/22 08:38 Dose: 100 mg Documented By: JANET Amlodipine Besylate (Amlodipine Besylate 5 Mg Tablet) 5 mg PO DAILY [facility]; Protocol Last Admin: 02/20/22 08:42 Dose: Not Given Documented By: JANET Non-Admin Reason: Decreased Blood Pressure Bisacodyl (Bisacodyl 10 Mg Supp.Rect) 10 mg IA DAILY PRN PRN Reason: Constipation Heparin Sodium (Porcine) (Heparin Sodium,Porcine 5,000 Unit/Ml Vial) 5,000 unit SUBCUT Q12H [facility] Last Admin: 02/20/22 05:29 Dose: 5,000 unit Documented By: SHRAVAN Lidocaine (Lidocaine 4 % Patch Adh..Patch) 1 patch TRANSDERMA DAILY [facility]; Protocol Last Admin: 02/20/22 08:38 Dose: 1 patch Documented By: JANET Loperamide HCl (Loperamide Hcl 2 Mg Capsule) 2 mg PO Q4H PRN PRN Reason: Diarrhea Last Admin: 02/19/22 23:01 Dose: 2 mg Documented By: SHRAVAN Magnesium Oxide (Magnesium Oxide 400 Mg Tablet) 400 mg PO BIDPC [facility] Last Admin: 02/20/22 08:38 Dose: 400 mg Documented By: JANET Melatonin (Melatonin 3 Mg Tablet) 3 mg PO BEDTIME PRN PRN Reason: sleep Multi-Ingred Cream/Lotion/Oil/Oint (Mineral Oil/Petrolatum,White 106 Gm Tube) 1 appl TOPICAL BID [facility]; Protocol Last Admin: 02/20/22 08:56 Dose: 1 appl Documented By: JANET Omeprazole (Omeprazole 20 Mg Capsule.Dr) 20 mg PO DAILY@0630 [facility] Last Admin: 02/20/22 05:29 Dose: 20 mg Documented By: SHRAVAN Ondansetron HCl (Ondansetron Hcl 4 Mg/2 Ml Vial) 4 mg IVPUSH Q8H PRN PRN Reason: Nausea and Vomiting Last Admin: 02/18/22 05:11 Dose: 4 mg Documented By: NAHOMI Pregabalin (Pregabalin 75 Mg Capsule) 75 mg PO BID [facility] Last Admin: 02/20/22 08:38 Dose: 75 mg Documented By: JANET Sertraline HCl (Sertraline Hcl 100 Mg Tablet) 100 mg PO DAILY [facility] Last Admin: 02/20/22 08:38 Dose: 100 mg Documented By: JANET Simethicone (Simethicone 80 Mg Tab.Chew) 80 mg PO BID PRN PRN Reason: Gas Last Admin: 02/19/22 10:54 Dose: 80 mg Documented By: NORMA Sodium Chloride (0.9 % Sodium Chloride Flush 3 Ml Syringe) [facility] Last Admin: 02/20/22 08:43 Dose: 3 ml Documented By: JANET Trazodone HCl (Trazodone Hcl 50 Mg Tablet) 50 mg PO BEDTIME PRN PRN Reason: Insomnia Last Admin: 02/19/22 21:48 Dose: 50 mg Documented By: SHRAVAN Trazodone HCl (Trazodone Hcl 25 Mg Halftab) 25 mg PO BEDTIME [facility] Zinc Acetate/Diphenhydramine (Diphenhydramine Hcl 2 % Cream 28 Gm Tube) 1 appl TOPICAL QID PRN; Protocol PRN Reason: Itching Labs CBC & Chem 7: 02/14/22 05:54 02/20/22 06:20 Labs: Laboratory Results - last 24 hr 02/19/22 02/20/22 06:08 06:20 Anion Gap 17 Estim Creat Clear Calc 22.0 Estimated GFR 29 Random Glucose 93 Calcium 8.1 L Magnesium 1.2 L* Prealbumin 13.0 L Procedures Date of Service Date of Service: 02/20/22 Progress Note: A&P Assessment and plan (1) Regurgitation of food: Status: Acute (2) Hiatal hernia: Status: Acute (3) Frailty syndrome in geriatric patient: Status: Acute (4) Vomiting: Status: Acute (5) Malnutrition: Status: Acute (6) Diarrhea: Status: Acute (7) Bed sore: Status: Acute (8) COPD (chronic obstructive pulmonary disease): Status: Acute Plan I have reconsulted Dr. Head in Gastroenterology. As previously noted, the patient has a significant hiatal hernia that prevented routine placement of a nasogastric tube for decompression intraoperatively. On CT, she has a hiatal hernia that is somewhat acutely angulated. I am not sure whether not an EGD with balloon dilation or Botox would be beneficial. The other option would be consideration for a nasoenteric feeding tube placed under IR and subsequent PEG to improve her nutrition. Continue diet as tolerated for now and await GI input. Time Spent With Patient Time: Total time spent is greater than 50% in coordination of care (as documented) at patient's floor/unit and/or counseling patient: Quality Stroke Does the patient have a stroke diagnosis?: No VTE Prior VTE?: No VTE Risk Level:: Medical - moderate - high VTE Device Contraindication: N/A - Device Ordered VTE Drug Contraindication: Treatment Not Indicated
--- NOTE | 2022-02-20 10:49 | HO.PM.IMPN ---
Subjective Subjective Date of Service: 02/20/22 Interval History: diarrhea improving but did have regurgitation this am Review of Systems Review of Systems: Yes all other systems are reviewed and are negative Physical Exam Vital Signs: Vital Signs: Last Vital Signs Temp 97.8 F 02/20/22 07:41 Pulse 78 02/20/22 07:41 Resp 12 02/20/22 07:41 BP 93/53 L 02/20/22 07:41 Pulse Ox 95 02/20/22 07:41 O2 Del Method 02/20/22 07:41 O2 Flow Rate 1 02/19/22 15:48 FiO2 35 02/04/22 11:22 BMI result Body Mass Index 27.5 Gen: in no acute distress HEENT: sclera anicteric, moist mucus membranes Neck: supple Lungs: clear to auscultation bilaterally Heart: regular rate and rhythm, no murmurs Abd: soft, non-tender, non-distended, midline laparotomy wound with cristo clean/dry/intact Ext: 1+ edema of legs, discolored R toes [chronic] Skin: warm/well-perfused, stage 2 pressure ulcers bilateral buttocks Neuro: alert and oriented x3, no focal findings Psych: appropriate affect Objective Data Active Medications Acetaminophen (Acetaminophen Supp 650 Mg Supp.Rect) 650 mg [place] Q6H PRN PRN Reason: Pain, Mild (Pain Scale 1-3) Acetaminophen (Acetaminophen 325 Mg Tablet) 650 mg PO Q6H PRN PRN Reason: Pain, Mild (Pain Scale 1-3) Last Admin: 02/19/22 21:15 Dose: 650 mg Documented By: SHRAVAN Allopurinol (Allopurinol 100 Mg Tablet) 100 mg PO DAILY [facility] Last Admin: 02/20/22 08:38 Dose: 100 mg Documented By: JANET Amlodipine Besylate (Amlodipine Besylate 5 Mg Tablet) 5 mg PO DAILY [facility]; Protocol Last Admin: 02/20/22 08:42 Dose: Not Given Documented By: JANET Non-Admin Reason: Decreased Blood Pressure Bisacodyl (Bisacodyl 10 Mg Supp.Rect) 10 mg [place] DAILY PRN PRN Reason: Constipation Heparin Sodium (Porcine) (Heparin Sodium,Porcine 5,000 Unit/Ml Vial) 5,000 unit SUBCUT Q12H [facility] Last Admin: 02/20/22 05:29 Dose: 5,000 unit Documented By: SHRAVAN Lidocaine (Lidocaine 4 % Patch Adh..Patch) 1 patch TRANSDERMA DAILY [facility]; Protocol Last Admin: 02/20/22 08:38 Dose: 1 patch Documented By: JANET Loperamide HCl (Loperamide Hcl 2 Mg Capsule) 2 mg PO Q4H PRN PRN Reason: Diarrhea Last Admin: 02/19/22 23:01 Dose: 2 mg Documented By: SHRAVAN Magnesium Oxide (Magnesium Oxide 400 Mg Tablet) 400 mg PO BIDPC [facility] Last Admin: 02/20/22 08:38 Dose: 400 mg Documented By: JANET Melatonin (Melatonin 3 Mg Tablet) 3 mg PO BEDTIME PRN PRN Reason: sleep Multi-Ingred Cream/Lotion/Oil/Oint (Mineral Oil/Petrolatum,White 106 Gm Tube) 1 appl TOPICAL BID [facility]; Protocol Last Admin: 02/20/22 08:56 Dose: 1 appl Documented By: JANET Omeprazole (Omeprazole 20 Mg Capsule.) 20 mg PO DAILY@0630 [facility] Last Admin: 02/20/22 05:29 Dose: 20 mg Documented By: SHRAVAN Ondansetron HCl (Ondansetron Hcl 4 Mg/2 Ml Vial) 4 mg IVPUSH Q8H PRN PRN Reason: Nausea and Vomiting Last Admin: 02/18/22 05:11 Dose: 4 mg Documented By: NAHOMI Pregabalin (Pregabalin 75 Mg Capsule) 75 mg PO BID [facility] Last Admin: 02/20/22 08:38 Dose: 75 mg Documented By: JANET Sertraline HCl (Sertraline Hcl 100 Mg Tablet) 100 mg PO DAILY [facility] Last Admin: 02/20/22 08:38 Dose: 100 mg Documented By: JAENT Simethicone (Simethicone 80 Mg Tab.Chew) 80 mg PO BID PRN PRN Reason: Gas Last Admin: 02/19/22 10:54 Dose: 80 mg Documented By: NORMA Sodium Chloride (0.9 % Sodium Chloride Flush 3 Ml Syringe) 3 ml IVFLUSH QSHIFT [facility] Last Admin: 02/20/22 08:43 Dose: 3 ml Documented By: JANET Trazodone HCl (Trazodone Hcl 50 Mg Tablet) 50 mg PO BEDTIME PRN PRN Reason: Insomnia Last Admin: 02/19/22 21:48 Dose: 50 mg Documented By: ISABELLATEKMaykel Trazodone HCl (Trazodone Hcl 25 Mg Halftab) 25 mg PO BEDTIME [facility] Zinc Acetate/Diphenhydramine (Diphenhydramine Hcl 2 % Cream 28 Gm Tube) 1 appl TOPICAL QID PRN; Protocol PRN Reason: Itching Labs CBC & Chem 7: 02/14/22 05:54 02/20/22 06:20 Labs: Laboratory Results - last 24 hr 02/19/22 02/20/22 06:08 06:20 Anion Gap 17 Estim Creat Clear Calc 22.0 Estimated GFR 29 Random Glucose 93 Calcium 8.1 L Magnesium 1.2 L* Prealbumin 13.0 L Assessment and Plan (1) Regurgitation of food: Status: Acute Plan d#20 81yo F with unspecified mononeuropathy of BLE, CKD, spinal stenosis admitted for high-grade SBO 02/01/22, s/p ex-lap/TESHA 02/03 after which she remained intubated in the ICU; extubated 02/04 then transferred to the medical service where she had a prolonged course complicated by N/V, malnutrition, and electrolyte abnormalities due to postop ileus # SBO, postop ileus, resolving - ex-lap TESHA 02/03, postop went to ICU intubated - extubated 02/04, transferred to floor - NGT out 02/07 then started on liquid diet, complicated by N/V/D - AXR 02/10 + 02/13 with no obstruction; possible postop ileus - CT A/P 02/11 no abscess, no SBO; possible ileus - Cdiff 02/09 + 02/12 negative - WBC count normalized without ABX - per GI impression also was of postop ileus; SBFT showed prominent SB loops and delayed transit of oral contrast - per Gen Surg today: I have reconsulted Dr. Head in Gastroenterology.? As previously noted, the patient has a significant hiatal hernia that prevented routine placement of a nasogastric tube for decompression intraoperatively.? On CT, she has a hiatal hernia that is somewhat acutely angulated.? I am not sure whether not an EGD with balloon dilation or Botox would be beneficial. The other option would be consideration for a nasoenteric feeding tube placed under IR and subsequent PEG to improve her nutrition. Continue diet as tolerated for now and await GI input. # JONES on CKD4 # metabolic acidosis - Scr peaked at 2.44 on 02/05, creatinine? 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; also has COPD - resolved, off suppl O2 now # COPD without acute exacerbation - prn nebs # UTI - completed ceftriaxone # hypoMg - replete IV + PO and recheck in AM; was likely due to diarrhea # hypoK - repleted # leukocytosis - resolved # chronic macrocytic anemia - H+H stable, B12 + folate normal # neuropathy # chronic back pain - resume pregabalin # mod pr/elise malnutrition - Ensure # st 2 pressure ulcers bilateral buttocks - air loss mattress, barrier cream, position changes # VTE ppx: UFH Quality Stroke Does the patient have a stroke diagnosis?: No VTE Prior VTE?: No VTE Risk Level:: Medical - moderate - high VTE Device Contraindication: N/A - Device Ordered VTE Drug Contraindication: Treatment Not Indicated
[2022-02-20 11:27] VITALS: BP 111/60; PULSE 82; RESP 16; TEMP 36.8; O2SAT 96
--- NOTE | 2022-02-20 12:28 | PM.PNNEP ---
Subjective Subjective Date of Service: 02/20/22 Interval history: No events Physical Exam Vital Signs: Vital Signs: Last Vital Signs Temp 98.2 F 02/20/22 11:27 Pulse 82 02/20/22 11:27 Resp 16 02/20/22 11:27 BP 111/60 02/20/22 11:27 Pulse Ox 96 02/20/22 11:27 O2 Del Method 02/20/22 11:27 O2 Flow Rate 1 02/19/22 15:48 FiO2 35 02/04/22 11:22 BMI result Body Mass Index 27.5 Const: Other: General: alert, or iented to self, pl david, year neck no JVD Resp:? clear t o auscultation, no wheeze or rales a nd no accessory mu scle use CVS: S1,S 2,RRR GI:?? abdome n soft nontender, regular BS Skin: N o rash, stage 2 pr essure ulcer both buttock --see nurs ing for detail ext remities bilateral pitting edema bot h feet mild hypere jeb dorsum of righ t foot good pulses , cold extremities , unchanged from yesterday MSK: no tenderness on spin e Neuro:? motor gr ossly intact Psych : flat affect Objective Data Labs CBC & Chem 7: 02/14/22 05:54 02/20/22 06:20 Labs: Laboratory Results - last 24 hr 02/20/22 06:20 Sodium 138 Potassium 3.6 Chloride 105 Carbon Dioxide 20 L Anion Gap 17 BUN 29 H Creatinine 1.70 H Estim Creat Clear Calc 22.0 Estimated GFR 29 Random Glucose 93 Calcium 8.1 L Magnesium 1.2 L* Microbiology Microbiology Results: Microbiology 02/01/22 21:06 Blood - Venous Blood Culture - Final No growth after 5 days. 02/01/22 19:26 Blood - Venous Blood Culture - Final No growth after 5 days. 02/02/22 00:00 Urine Catheterized - Straight Catheter Urine Culture - Final Procedures Date of Service Date of Service: 02/20/22 Assessment & Plan Assessment and plan (1) JONES (acute kidney injury): Status: Acute Assessment and Plan: 1. JONES: hemodynamic JONES in the setting of diarrhea and poor PO intake. 2. CKD stage IIIa BL Cr probably 1.4mg/dL 3. Nongap acidosis 2/2 CKD and Diarrhea Plan: - ok to DC naBicarb now that serum Bic 20meq/L - tolerating amlodipine 5mg well. (2) Chronic kidney disease: Status: Acute Time Spent With Patient Time: Total time spent is greater than 50% in coordination of care (as documented) at patient's floor/unit and/or counseling patient: Progress Note: Quality Stroke Does the patient have a stroke diagnosis?: No
[2022-02-20 16:00] VITALS: BP 114/62; PULSE 68; RESP 18; TEMP 36.9; O2SAT 95
[2022-02-20 19:15] VITALS: BP 97/59; PULSE 94; RESP 16; TEMP 37.1; O2SAT 92
[2022-02-20] MEDS: Acetaminophen 325 MG TABLET 650 MG PO (20:48)
[2022-02-20] MEDS: traZODone HCL 25 MG HALFTAB PO (20:48)
[2022-02-20] MEDS: Loperamide HCl 2 MG CAPSULE PO (20:56)
[2022-02-20 23:23] VITALS: BP 101/51; PULSE 85; RESP 16; TEMP 36.8; O2SAT 90
[2022-02-21] MEDS: Heparin Sodium,Porcine 5,000 UNIT/ML VIAL 5000 UNIT SUBCUT (05:28)
[2022-02-21] MEDS: Omeprazole 20 MG CAPSULE.DR PO (05:29)
[2022-02-21 07:20] LABS: Anion Gap 19 (12-20); Blood Urea Nitrogen 33 mg/dL (9-16); Calcium 8.1 mg/dL (8.4-10.2); Carbon Dioxide 15 mmol/L (22-29); Chloride 108 mmol/L (96-108); Creatinine Clr Calc Pharmacy 20.3; Estimated Glomerular Filt Rate 26; Glucose Random 89 mg/dL (60-115); Magnesium 1.5 mg/dL (1.6-2.6); Potassium 3.7 mmol/L (3.3-5.1); Sodium 138 mmol/L (135-145)
[2022-02-21] MEDS: Pregabalin 75 MG CAPSULE PO ×2 (07:37→23:10)
[2022-02-21] MEDS: allopurinoL 100 MG TABLET PO (07:37)
[2022-02-21] MEDS: amLODIPine Besylate 5 MG TABLET PO (07:37)
[2022-02-21] MEDS: Sertraline HCL 100 MG TABLET PO (07:37)
[2022-02-21] MEDS: 0.9 % Sodium Chloride Flush 3 ML SYRINGE IVFLUSH ×2 (07:37→17:58)
[2022-02-21] MEDS: Magnesium Oxide 400 MG TABLET PO ×2 (07:38→17:58)
[2022-02-21] MEDS: Lidocaine 4 % Patch ADH..PATCH 1 PATCH TRANSDERMA (07:38)
[2022-02-21] MEDS: Mineral Oil/Petrolatum,White 106 GM Tube 1 APPL TOPICAL ×2 (07:39→23:11)
[2022-02-21 08:00] VITALS: BP 114/68; PULSE 88; RESP 17; TEMP 36.9; O2SAT 98
--- NOTE | 2022-02-21 08:36 | PM.PNGS ---
Subjective Subjective Date of Service: 02/21/22 Patient reports: no new complaints and feels better Interval history: The patient is seen with her daughter Asha at the bedside. The patient is tolerating breakfast and reports no additional regurgitation since yesterday. This morning, the patient and her daughter endorse that the patient has been dealing with regurgitation issues for years. She is not interested in having any upper endoscopy procedure that could prevent discharge to a rehab tomorrow. Patient related a history that there a time where she would have to excused herself from a family meal in order to vomit/regurgitate food secondary to her hiatal hernia. Unfortunately, this information was not shared until today. Physical Exam Vital Signs: Vital Signs: Last Vital Signs Temp 98.5 F 02/21/22 08:00 Pulse 88 02/21/22 08:00 Resp 17 02/21/22 08:00 BP 114/68 02/21/22 08:00 Pulse Ox 98 02/21/22 08:00 O2 Del Method 02/21/22 08:00 O2 Flow Rate 1 02/19/22 15:48 FiO2 35 02/04/22 11:22 BMI result Body Mass Index 27.5 The patient is eating breakfast and tolerating it well She is nontoxic and in good spirits Objective Data Active Medications Acetaminophen (Acetaminophen Supp 650 Mg Supp.Rect) 650 mg [place] Q6H PRN PRN Reason: Pain, Mild (Pain Scale 1-3) Acetaminophen (Acetaminophen 325 Mg Tablet) 650 mg PO Q6H PRN PRN Reason: Pain, Mild (Pain Scale 1-3) Last Admin: 02/20/22 20:48 Dose: 650 mg Documented By: SHRAVAN Albuterol/Ipratropium (Albuterol/Iprat 2.5/0.5mg 3 Ml Ampul.Neb) 3 ml INHALE RQ4H PRN PRN Reason: shortness of breath or wheez Allopurinol (Allopurinol 100 Mg Tablet) 100 mg PO DAILY [facility] Last Admin: 02/21/22 07:37 Dose: 100 mg Documented By: TERRA Amlodipine Besylate (Amlodipine Besylate 5 Mg Tablet) 5 mg PO DAILY [facility]; Protocol Last Admin: 02/21/22 07:37 Dose: 5 mg Documented By: TERRA Bisacodyl (Bisacodyl 10 Mg Supp.Rect) 10 mg [place] DAILY PRN PRN Reason: Constipation Heparin Sodium (Porcine) (Heparin Sodium,Porcine 5,000 Unit/Ml Vial) 5,000 unit SUBCUT Q12H [facility] Last Admin: 02/21/22 05:28 Dose: 5,000 unit Documented By: SHRAVAN Magnesium Sulfate (Magnesium Sulfate/H2o) 2 gm in 50 mls @ 25 mls/hr IV ONCE ONE Stop: 02/21/22 09:47 Lactated Ringer's (Lr) 1,000 mls @ 125 mls/hr IVCONT .Q8H [facility] Stop: 02/21/22 23:59 Lidocaine (Lidocaine 4 % Patch Adh..Patch) 1 patch TRANSDERMA DAILY [facility]; Protocol Last Admin: 02/21/22 07:38 Dose: 1 patch Documented By: TERRA Loperamide HCl (Loperamide Hcl 2 Mg Capsule) 2 mg PO Q4H PRN PRN Reason: Diarrhea Last Admin: 02/20/22 20:56 Dose: 2 mg Documented By: SHRAVAN Magnesium Oxide (Magnesium [facility] 400 Mg Tablet) [facility] Last Admin: 02/21/22 07:38 Dose: 400 mg Documented By: TERRA Melatonin (Melatonin 3 Mg Tablet) 3 mg PO BEDTIME PRN PRN Reason: sleep Multi-Ingred Cream/Lotion/Oil/Oint (Mineral Oil/Petrolatum,White 106 Gm Tube) 1 appl TOPICAL BID [facility]; Protocol Last Admin: 02/21/22 07:39 Dose: 1 appl Documented By: TERRA Omeprazole (Omeprazole 20 Mg Douglas.) 20 mg PO DAILY@0630 [facility] Last Admin: 02/21/22 05:29 Dose: 20 mg Documented By: SHRAVAN Ondansetron HCl (Ondansetron Hcl 4 Mg/2 Ml Vial) 4 mg IVPUSH Q8H PRN PRN Reason: Nausea and Vomiting Last Admin: 02/18/22 05:11 Dose: 4 mg Documented By: NAHOMI Pregabalin (Pregabalin 75 Mg Capsule) 75 mg PO BID [facility] Last Admin: 02/21/22 07:37 Dose: 75 mg Documented By: TERRA Sertraline HCl (Sertraline Hcl 100 Mg Tablet) 100 mg PO DAILY [facility] Last Admin: 02/21/22 07:37 Dose: 100 mg Documented By: TERRA Simethicone (Simethicone 80 Mg Tab.Chew) 80 mg PO BID PRN PRN Reason: Gas Last Admin: 02/19/22 10:54 Dose: 80 mg Documented By: NORMA Sodium Bicarbonate (Sodium Bicarbonate 650 Mg Tablet) 650 mg PO BID [facility] Sodium Chloride (0.9 % Sodium Chloride Flush 3 Ml Syringe) 3 ml IVFLUSH QSHIFT [facility] Last Admin: 02/21/22 07:37 Dose: 3 ml Documented By: TERRA Trazodone HCl (Trazodone Hcl 50 Mg Tablet) 50 mg PO BEDTIME PRN PRN Reason: Insomnia Last Admin: 02/19/22 21:48 Dose: 50 mg Documented By: SHRAVAN Trazodone HCl (Trazodone Hcl 25 Mg Halftab) 25 mg PO BEDTIME [facility] Last Admin: 02/20/22 20:48 Dose: 25 mg Documented By: SHRAVAN Zinc Acetate/Diphenhydramine (Diphenhydramine Hcl 2 % Cream 28 Gm Tube) 1 appl TOPICAL QID PRN; Protocol PRN Reason: Itching Labs CBC & Chem 7: 02/14/22 05:54 02/21/22 06:43 Labs: Laboratory Results - last 24 hr 02/21/22 06:43 Anion Gap 19 Estim Creat Clear Calc 20.3 Estimated GFR 26 Random Glucose 89 Calcium 8.1 L Magnesium 1.5 L Procedures Date of Service Date of Service: 02/21/22 Progress Note: A&P Assessment and plan (1) Regurgitation of food: Status: Acute (2) Spinal stenosis: Status: Acute (3) Bed sore: Status: Acute (4) Malnutrition: Status: Acute (5) Frailty syndrome in geriatric patient: Status: Acute (6) Hiatal hernia: Status: Acute Plan Regurgitation likely secondary to hiatal hernia: I communicated with Dr. Santos and he will communicate with Dr. Head about a possible EGD, balloon dilation or other options for tomorrow. Consequently, patient will need to be NPO after midnight tonight except for medications and, given the possible balloon dilation, I have stopped her subcu heparin. The patient is not interested in having an EGD since it would prevent her from going to rehab; discussion regarding the risks of aspiration pneumonia and were had with the patient and her daughter. If the patient is not interested in the procedure, plan to transfer to rehab tomorrow. Will reassess tomorrow regarding staple removal or have that done at the facility. Time Spent With Patient Time: Total time spent is greater than 50% in coordination of care (as documented) at patient's floor/unit and/or counseling patient: Quality Stroke Does the patient have a stroke diagnosis?: No VTE Prior VTE?: No VTE Risk Level:: Medical - moderate - high VTE Device Contraindication: N/A - Device Ordered VTE Drug Contraindication: Treatment Not Indicated
[2022-02-21] MEDS: Magnesium Sulfate/H2O 2 GM/50 ML PIGGYBACK IV (09:52)
[2022-02-21] MEDS: Sodium Bicarbonate 650 MG TABLET PO ×2 (09:57→23:11)
[2022-02-21] MEDS: Lactated Ringers 1,000 ML 125 ML IVCONT (09:59)
[2022-02-21 11:07] VITALS: BP 96/61; PULSE 78; RESP 18; TEMP 36.9; O2SAT 95
--- NOTE | 2022-02-21 11:07 | P.EN_ITS ---
Event Note Date of Service: 02/21/22 Event Note: GI Coverage--Case D/W Dr. Weiss yesterday. I reviewed his note from today regarding the patient's potential discharge for 02/22/2022 and the fact that she may not want to have an upper endosocopy. Nonetheless, I did place her on Dr. Head's endoscopy schedule for 02/22 in the event her UGI symptoms return overnight and/or she is agreeable to the upper endoscopy before transfer to rehab. If she does not have it done as an inpatient then it can always be sched uled as an outpatient if the need arises. Thanks
--- NOTE | 2022-02-21 11:33 | PM.PNNEP ---
Subjective Subjective Date of Service: 02/21/22 Interval history: diarrhea restarted overnight Non-gap acidosis again worse despite PO bicarb and LR Cr on rise Physical Exam Vital Signs: Vital Signs: Last Vital Signs Temp 98.5 F 02/21/22 11:07 Pulse 78 02/21/22 11:07 Resp 18 02/21/22 11:07 BP 96/61 02/21/22 11:07 Pulse Ox 95 02/21/22 11:07 O2 Del Method 02/21/22 11:07 O2 Flow Rate 1 02/19/22 15:48 FiO2 35 02/04/22 11:22 BMI result Body Mass Index 27.5 Const: Other: General: alert, or iented to self, pl david, year neck no JVD Resp:? clear t o auscultation, no wheeze or rales a nd no accessory mu scle use CVS: S1,S 2,RRR GI:?? abdome n soft nontender, regular BS Skin: N o rash, stage 2 pr essure ulcer both buttock --see nurs ing for detail ext remities bilateral pitting edema bot h feet mild hypere jeb dorsum of righ t foot good pulses , cold extremities , unchanged from yesterday MSK: no tenderness on spin e Neuro:? motor gr ossly intact Psych : flat affect Objective Data Labs CBC & Chem 7: 02/14/22 05:54 02/21/22 06:43 Labs: Laboratory Results - last 24 hr 02/21/22 06:43 Sodium 138 Potassium 3.7 Chloride 108 Carbon Dioxide 15 L Anion Gap 19 BUN 33 H Creatinine 1.84 H Estim Creat Clear Calc 20.3 Estimated GFR 26 Random Glucose 89 Calcium 8.1 L Magnesium 1.5 L Microbiology Microbiology Results: Microbiology 02/01/22 21:06 Blood - Venous Blood Culture - Final No growth after 5 days. 02/01/22 19:26 Blood - Venous Blood Culture - Final No growth after 5 days. 02/02/22 00:00 Urine Catheterized - Straight Catheter Urine Culture - Final Procedures Date of Service Date of Service: 02/21/22 Assessment & Plan Assessment and plan (1) JONES (acute kidney injury): Status: Acute Assessment and Plan: 1. JONES: hemodynamic JONES in the setting of diarrhea and poor PO intake. 2. CKD stage IIIa BL Cr probably 1.4mg/dL 3. Nongap acidosis 2/2 CKD and Diarrhea Plan: - c/w PO bicarb - Stop LR as acidosis is refractory to this. I started Bicarb gtt 150meq/L formulation at 100cc/hr - consider immodium for diarrhea - tolerating amlodipine 5mg well. - spoke to daughter at bedside to bring in Pedialyte which patient has at home (2) Chronic kidney disease: Status: Acute Time Spent With Patient Time: Total time spent is greater than 50% in coordination of care (as documented) at patient's floor/unit and/or counseling patient: Progress Note: Quality Stroke Does the patient have a stroke diagnosis?: No
--- NOTE | 2022-02-21 12:16 | HO.PM.IMPN ---
Subjective Subjective Date of Service: 02/21/22 Interval History: again having diarrhea regurgitation is chronic, dating back years Review of Systems Review of Systems: Yes all other systems are reviewed and are negative Physical Exam Vital Signs: Vital Signs: Last Vital Signs Temp 98.5 F 02/21/22 11:07 Pulse 78 02/21/22 11:07 Resp 18 02/21/22 11:07 BP 96/61 02/21/22 11:07 Pulse Ox 95 02/21/22 11:07 O2 Del Method 02/21/22 11:07 O2 Flow Rate 1 02/19/22 15:48 FiO2 35 02/04/22 11:22 BMI result Body Mass Index 27.5 Gen: in no acute distress HEENT: sclera anicteric, moist mucus membranes Neck: supple Lungs: clear to auscultation bilaterally Heart: regular rate and rhythm, no murmurs Abd: soft, non-tender, non-distended, midline laparotomy wound with cristo clean/dry/intact Ext: 1+ edema of legs, discolored R toes [chronic] Skin: warm/well-perfused, stage 2 pressure ulcers bilateral buttocks Neuro: alert and oriented x3, no focal findings Psych: appropriate affect Objective Data Active Medications Acetaminophen (Acetaminophen Supp 650 Mg Supp.Rect) 650 mg [place] Q6H PRN PRN Reason: Pain, Mild (Pain Scale 1-3) Acetaminophen (Acetaminophen 325 Mg Tablet) 650 mg PO Q6H PRN PRN Reason: Pain, Mild (Pain Scale 1-3) Last Admin: 02/20/22 20:48 Dose: 650 mg Documented By: SHRAVAN Albuterol/Ipratropium (Albuterol/Iprat 2.5/0.5mg 3 Ml Ampul.Neb) 3 ml INHALE RQ4H PRN PRN Reason: shortness of breath or wheez Allopurinol (Allopurinol 100 Mg Tablet) 100 mg PO DAILY [facility] Last Admin: 02/21/22 07:37 Dose: 100 mg Documented By: TERRA Amlodipine Besylate (Amlodipine Besylate 5 Mg Tablet) 5 mg PO DAILY [facility]; Protocol Last Admin: 02/21/22 07:37 Dose: 5 mg Documented By: TERRA Bisacodyl (Bisacodyl 10 Mg Supp.Rect) 10 mg [place] DAILY PRN PRN Reason: Constipation Sodium Bicarbonate 150 meq/ (Dextrose) 1,000 mls @ 100 mls/hr IV .Q10H STA Stop: 02/21/22 21:31 Lidocaine (Lidocaine 4 % Patch Adh..Patch) 1 patch TRANSDERMA DAILY [facility]; Protocol Last Admin: 02/21/22 07:38 Dose: 1 patch Documented By: TERRA Loperamide HCl (Loperamide Hcl 2 Mg Capsule) 2 mg PO Q4H PRN PRN Reason: Diarrhea Last Admin: 02/20/22 20:56 Dose: 2 mg Documented By: SHRAVAN Magnesium Oxide (Magnesium Oxide 400 Mg Tablet) 400 mg PO BIDPC [facility] Last Admin: 02/21/22 07:38 Dose: 400 mg Documented By: TERRA Melatonin (Melatonin 3 Mg Tablet) 3 mg PO BEDTIME PRN PRN Reason: sleep Multi-Ingred Cream/Lotion/Oil/Oint (Mineral Oil/Petrolatum,White 106 Gm Tube) 1 appl TOPICAL BID [facility]; Protocol Last Admin: 02/21/22 07:39 Dose: 1 appl Documented By: TERRA Omeprazole (Omeprazole 20 Mg Capsule.Dr) 20 mg PO DAILY@0630 [facility] Last Admin: 02/21/22 05:29 Dose: 20 mg Documented By: SHRAVAN Ondansetron HCl (Ondansetron Hcl 4 Mg/2 Ml Vial) 4 mg IVPUSH Q8H PRN PRN Reason: Nausea and Vomiting Last Admin: 02/18/22 05:11 Dose: 4 mg Documented By: NAHOMI Pregabalin (Pregabalin 75 Mg Capsule) 75 mg PO BID [facility] Last Admin: 02/21/22 07:37 Dose: 75 mg Documented By: TERRA Sertraline HCl (Sertraline Hcl 100 Mg Tablet) 100 mg PO DAILY [facility] Last Admin: 02/21/22 07:37 Dose: 100 mg Documented By: TERRA Simethicone (Simethicone 80 Mg Tab.Chew) 80 mg PO BID PRN PRN Reason: Gas Last Admin: 02/19/22 10:54 Dose: 80 mg Documented By: NORMA Sodium Bicarbonate (Sodium Bicarbonate 650 Mg Tablet) 650 mg PO BID [facility] Last Admin: 02/21/22 09:57 Dose: 650 mg Documented By: TERRA Sodium Chloride (0.9 % Sodium Chloride Flush 3 Ml Syringe) 3 ml IVFLUSH QSHIFT [facility] Last Admin: 02/21/22 07:37 Dose: 3 ml Documented By: ETRRA Trazodone HCl (Trazodone Hcl 50 Mg Tablet) 50 mg PO BEDTIME PRN PRN Reason: Insomnia Last Admin: 02/19/22 21:48 Dose: 50 mg Documented By: SHRAVAN Trazodone HCl (Trazodone Hcl 25 Mg Halftab) 25 mg PO BEDTIME [facility] Last Admin: 02/20/22 20:48 Dose: 25 mg Documented By: SHRAVAN Zinc Acetate/Diphenhydramine (Diphenhydramine Hcl 2 % Cream 28 Gm Tube) 1 appl TOPICAL QID PRN; Protocol PRN Reason: Itching Labs CBC & Chem 7: 02/14/22 05:54 02/21/22 06:43 Labs: Laboratory Results - last 24 hr 02/21/22 06:43 Anion Gap 19 Estim Creat Clear Calc 20.3 Estimated GFR 26 Random Glucose 89 Calcium 8.1 L Magnesium 1.5 L Assessment and Plan (1) Regurgitation of food: Status: Acute Plan d#21 81yo F with unspecified mononeuropathy of BLE, CKD, spinal stenosis admitted for high-grade SBO 02/01/22, s/p ex-lap/TESHA 02/03 after which she remained intubated in the ICU; extubated 02/04 then transferred to the medical service where she had a prolonged course complicated by N/V, malnutrition, and electrolyte abnormalities due to postop ileus # SBO, postop ileus, resolving - ex-lap TESHA 02/03, postop went to ICU intubated - extubated 02/04, transferred to floor - NGT out 02/07 then started on liquid diet, complicated by N/V/D - AXR 02/10 + 02/13 with no obstruction; possible postop ileus - CT A/P 02/11 no abscess, no SBO; possible ileus - Cdiff 02/09 + 10 negative - WBC count normalized without ABX - per GI impression also was of postop ileus; SBFT showed prominent SB loops and delayed transit of oral contrast - per discussion with pt, daughter, and Gen Surg, will defer management of hiatal hernia to outpatient setting # JONES on CKD4 # metabolic acidosis - Scr peaked at 2.44 on 02/05, creatinine?normalized to 1.2 but rising likely due to vomiting + diarrhea- change to IV bicarbonate as per Nephrology and recheck BMP in AM # hypoMg - replete IV + PO and recheck in AM; was likely due to diarrhea # acute hypoxic resp failure - extubated 02/04, likely has 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; also has COPD - resolved, off suppl O2 now # COPD without acute exacerbation - prn nebs # UTI - completed ceftriaxone # hypoK - repleted # leukocytosis - resolved # chronic macrocytic anemia - H+H stable, B12 + folate normal # neuropathy # chronic back pain - resumed pregabalin # mod pr/elise malnutrition - Ensure # st 2 pressure ulcers bilateral buttocks - air loss mattress, barrier cream, position changes # VTE ppx: UFH In my clinical judgment, the patient requires continued hospitalization for the following reasons: JONES, hypoMg Quality Stroke Does the patient have a stroke diagnosis?: No VTE Prior VTE?: No VTE Risk Level:: Medical - moderate - high VTE Device Contraindication: N/A - Device Ordered VTE Drug Contraindication: Treatment Not Indicated
[2022-02-21] MEDS: Sodium Bicarbonate 8.4% 150 MEQ in Dextrose 5 % 850 ML 100 MEQ IV (12:59)
[2022-02-21 15:55] VITALS: BP 105/59; PULSE 83; RESP 18; TEMP 36.8; O2SAT 92
--- NOTE | 2022-02-21 16:53 | MHC.CLN ---
F/U DIET=REGULAR, BLAND, NO CAFFEINE. ENSURE CLEAR TID PROVIDES ADDITIONAL 720 KCALS, 24 G PROTEIN. PATIENT WITH STAGE II TO BUTTOCKS. SUPPLEMENT APPROPRIATE TO PROMOTE WOUND HEALING INTAKE APPEARS GOOD, 50-100%. FOLLOW FOR DIET TOLERANCE, INTAKE, AND WOUND.
--- NOTE | 2022-02-21 18:35 | PC.NURSE ---
PATIENT A&O X4 IN AM, A&O X3 IN PM AFTER NAP, CONFUSED ON DAY. PATIENT POSITIONED TO RECLINER FOR MAJORITY OF DAY, REPOSITIONING TO COMFORT AND POLICY. PATIENT AND FAMILY UPDATED ON CURRENT HEALTH STATUS.
[2022-02-21 19:41] VITALS: BP 105/56; PULSE 82; RESP 18; TEMP 36.6; O2SAT 94
[2022-02-21] MEDS: traZODone HCL 25 MG HALFTAB PO (23:11)
[2022-02-21 23:41] VITALS: BP 118/68; PULSE 79; RESP 15; TEMP 36.9; O2SAT 92
[2022-02-22] VITALS (7 sets, daily range): BP systolic 96–115; BP diastolic 56–67; PULSE 68–86; RESP 15–20; TEMP 35.9–37.6; O2SAT 92–98
[2022-02-22] MEDS: Omeprazole 20 MG CAPSULE.DR PO (06:25)
[2022-02-22 06:36] LABS: MANUAL DIFF FLAG NO
[2022-02-22 06:45] LABS: Prothrombin Time 11.2 SEC (10.0-13.1)
[2022-02-22 06:49] LABS: Basophils Percent Auto 0.1 % (0-2); Eosinophils Absolute Auto 0.2 X10*3/uL (0.0-0.4); Eosinophils Percent Auto 2.5 % (0-4); Hematocrit 25.1 % (37.0-47.0); Imm Gran Abs Auto 0.02 X10*3/uL (0.00-0.03); Imm Gran Pct Auto 0.3 % (0.0-0.4); Lymphocytes Absolute Auto 1.2 X10*3/uL (1.2-4.9); Mean Corpuscular HGB Conc 31.9 g/dl (31.0-35.0); Mean Corpuscular Hemoglobin 31.5 pg (27.0-33.0); Mean Corpuscular Volume 98.8 fL (80.0-98.0); Mean Platelet Volume 9.1 fL (9.4-12.3); Monocytes Absolute Auto 0.5 X10*3/uL (0.1-1.2); Monocytes Percent Auto 6.9 % (2-11); Neutrophils Absolute Auto 4.9 x10*3/uL (2.0-8.3); Neutrophils Percent Auto 72.2 % (45-73); Platelet Count 394 X10*3/uL (160-400); Red Blood Count 2.54 X10*6/uL (4.20-5.50); Red Cell Distribution Width 14.1 % (11.0-16.0); White Blood Count 6.8 X10*3/uL (4.8-10.8)
[2022-02-22 07:06] LABS: Anion Gap 17 (12-20); Blood Urea Nitrogen 34 mg/dL (9-16); Calcium 8.3 mg/dL (8.4-10.2); Carbon Dioxide 23 mmol/L (22-29); Chloride 105 mmol/L (96-108); Estimated Glomerular Filt Rate 27; Glucose Random 98 mg/dL (60-115); Magnesium 1.8 mg/dL (1.6-2.6); Potassium 3.7 mmol/L (3.3-5.1); Sodium 141 mmol/L (135-145)
--- NOTE | 2022-02-22 07:49 | P.PNGS_ITS ---
Subjective Subjective Date of Service: 02/22/22 Patient reports: no new complaints Interval history: The patient denies interval change since yesterday and continues to endorse she does not want an upper endoscopy would prefer to be discharged to rehab. She notes she has tolerated her diet and is passing gas and having bowel movements with no diarrhea. She otherwise denies chest pain, difficulty breathing, shortness of breath. Her spinal stenosis is tolerable this morning Physical Exam Vital Signs: Vital Signs: Last Vital Signs Temp 97.9 F 02/22/22 07:42 Pulse 81 02/22/22 07:42 Resp 20 02/22/22 07:42 BP 111/67 02/22/22 07:42 Pulse Ox 92 02/22/22 07:42 O2 Del Method 02/22/22 07:42 O2 Flow Rate 1 02/19/22 15:48 FiO2 35 02/04/22 11:22 BMI result Body Mass Index 27.5 The patient is nontoxic She was laid as flat is she could be positioned and using the staple remover, I removed her midline incision cristo. Objective Data Active Medications Acetaminophen (Acetaminophen Supp 650 Mg Supp.Rect) 650 mg [place] Q6H PRN PRN Reason: Pain, Mild (Pain Scale 1-3) Acetaminophen (Acetaminophen 325 Mg Tablet) 650 mg PO Q6H PRN PRN Reason: Pain, Mild (Pain Scale 1-3) Last Admin: 02/20/22 20:48 Dose: 650 mg Documented By: SHRAVAN Albuterol/Ipratropium (Albuterol/Iprat 2.5/0.5mg 3 Ml Ampul.Neb) 3 ml INHALE RQ4H PRN PRN Reason: shortness of breath or wheez Allopurinol (Allopurinol 100 Mg Tablet) 100 mg PO DAILY [facility] Last Admin: 02/21/22 07:37 Dose: 100 mg Documented By: TERRA Amlodipine Besylate (Amlodipine Besylate 5 Mg Tablet) 5 mg PO DAILY [facility]; Protocol Last Admin: 02/21/22 07:37 Dose: 5 mg Documented By: TERRA Bisacodyl (Bisacodyl 10 Mg Supp.Rect) 10 mg [place] DAILY PRN PRN Reason: Constipation Lidocaine (Lidocaine 4 % Patch Adh..Patch) 1 patch TRANSDERMA DAILY [facility]; Prot ocol Last Admin: 02/21/22 07:38 Dose: 1 patch Documented By: TERRA Loperamide HCl (Loperamide Hcl 2 Mg Capsule) 2 mg PO Q4H PRN PRN Reason: Diarrhea Last Admin: 02/20/22 20:56 Dose: 2 mg Documented By: ISABELLATEKMaykel Magnesium Oxide (Magnesium Oxide 400 Mg Tablet) 400 mg PO BIDPC [facility] Last Admin: 02/21/22 17:58 Dose: 400 mg Documented By: TERRA Melatonin (Melatonin 3 Mg Tablet) 3 mg PO BEDTIME PRN PRN Reason: sleep Multi-Ingred Cream/Lotion/Oil/Oint (Mineral Oil/Petrolatum,White 106 Gm Tube) 1 appl TOPICAL BID [facility]; Protocol Last Admin: 02/21/22 23:11 Dose: 1 appl Documented By: GENEVIEVE Omeprazole (Omeprazole 20 Mg Capsule.Dr) 20 mg PO DAILY@0630 [facility] Last Admin: 02/22/22 06:25 Dose: 20 mg Documented By: GENEVIEVE Ondansetron HCl (Ondansetron Hcl 4 Mg/2 Ml Vial) 4 mg IVPUSH Q8H PRN PRN Reason: Nausea and Vomiting Last Admin: 02/18/22 05:11 Dose: 4 mg Documented By: NAHOMI Pregabalin (Pregabalin 75 Mg Capsule) 75 mg PO BID [facility] Last Admin: 02/21/22 23:10 Dose: 75 mg Documented By: GENEVIEVE Sertraline HCl (Sertraline Hcl 100 Mg Tablet) 100 mg PO DAILY [facility] Last Admin: 02/21/22 07:37 Dose: 100 mg Documented By: TERRA Simethicone (Simethicone 80 Mg Tab.Chew) 80 mg PO BID PRN PRN Reason: Gas Last Admin: 02/19/22 10:54 Dose: 80 mg Documented By: NORMA Sodium Bicarbonate (Sodium Bicarbonate 650 Mg Tablet) 650 mg PO BID [facility] Last Admin: 02/21/22 23:11 Dose: 650 mg Documented By: GENEVIEVE Sodium Chloride (0.9 % Sodium Chloride Flush 3 Ml Syringe) 3 ml IVFLUSH QSHIFT [facility] Last Admin: 02/22/22 07:43 Dose: Not Given Documented By: RILEY-SOFFA Non-Admin Reason: See Note Trazodone HCl (Trazodone Hcl 50 Mg Tablet) 50 mg PO BEDTIME PRN PRN Reason: Insomnia Last Admin: 02/19/22 21:48 Dose: 50 mg Documented By: SHRAVAN Trazodone HCl (Trazodone Hcl 25 Mg Halftab) 25 mg PO BEDTIME [facility] Last Admin: 02/21/22 23:11 Dose: 25 mg Documented By: GENEVIEVE Zinc Acetate/Diphenhydramine (Diphenhydramine Hcl 2 % Cream 28 Gm Tube) 1 appl TOPICAL QID PRN; Protocol PRN Reason: Itching Labs CBC & Chem 7: 02/22/22 06:27 02/22/22 06:27 Labs: Laboratory Results - last 24 hr 02/22/22 02/22/22 02/22/22 06:27 06:27 06:27 MCV 98.8 H MCH 31.5 MCHC 31.9 RDW 14.1 Plt Count 394 MPV 9.1 L Immature Gran % (Auto) 0.3 Neut % (Auto) 72.2 Lymph % (Auto) 18.0 L [place] % (Auto) 6.9 Eos % (Auto) 2.5 Baso % (Auto) 0.1 Lymph # (Auto) 1.2 [place] # (Auto) 0.5 Eos # (Auto) 0.2 Baso # (Auto) 0.0 Abs Immat Gran (auto) 0.02 Absolute Neuts (auto) 4.9 Absolute Nucleated RBC 0.000 Nucleated RBC % (auto) 0.0 PT 11.2 INR 1.0 Anion Gap 17 Estim Creat Clear Calc 21.0 Estimated GFR 27 Random Glucose 98 Calcium 8.3 L Magnesium 1.8 Procedures Date of Service Date of Service: 02/22/22 Progress Note: A&P Assessment and plan (1) Regurgitation of food: Status: Acute (2) Spinal stenosis: Status: Acute (3) Bed sore: Status: Acute (4) Malnutrition: Status: Acute (5) Frailty syndrome in geriatric patient: Status: Acute (6) Hiatal hernia: Status: Acute Plan Surgically stable for transfer to rehab No surgical follow-up is required at this point. Time Spent With Patient Time: Total time spent is greater than 50% in coordination of care (as documented) at patient's floor/unit and/or counseling patient: Quality Stroke Does the patient have a stroke diagnosis?: No VTE Prior VTE?: No VTE Risk Level:: Medical - moderate - high VTE Device Contraindication: N/A - Device Ordered VTE Drug Contraindication: Treatment Not Indicated
[2022-02-22] MEDS: Sodium Bicarbonate 650 MG TABLET PO ×2 (08:37→20:33)
[2022-02-22] MEDS: Sertraline HCL 100 MG TABLET PO (08:37)
[2022-02-22] MEDS: Pregabalin 75 MG CAPSULE PO ×2 (08:37→20:33)
[2022-02-22] MEDS: Magnesium Oxide 400 MG TABLET PO ×2 (08:37→17:20)
[2022-02-22] MEDS: amLODIPine Besylate 5 MG TABLET PO (08:37)
[2022-02-22] MEDS: Mineral Oil/Petrolatum,White 106 GM Tube 1 APPL TOPICAL ×2 (08:38→22:13)
[2022-02-22] MEDS: Lidocaine 4 % Patch ADH..PATCH 1 PATCH TRANSDERMA (08:38)
[2022-02-22] MEDS: allopurinoL 100 MG TABLET PO (08:42)
--- NOTE | 2022-02-22 09:52 | P.PNNP_ITS ---
Subjective Subjective Date of Service: 02/23/22 Interval history: Feels better no diarrhea today Family at bedside Physical Exam Vital Signs: Vital Signs: Last Vital Signs Temp 97.9 F 02/22/22 07:42 Pulse 81 02/22/22 07:42 Resp 20 02/22/22 07:42 BP 111/67 02/22/22 07:42 Pulse Ox 92 02/22/22 07:42 O2 Del Method 02/22/22 07:42 O2 Flow Rate 1 02/19/22 15:48 FiO2 35 02/04/22 11:22 BMI result Body Mass Index 27.5 Const: Other: General: alert, or iented to self, pl david, year neck no JVD Resp:? clear t o auscultation, no wheeze or rales a nd no accessory mu scle use CVS: S1,S 2,RRR GI:?? abdome n soft nontender, regular BS Skin: N o rash, stage 2 pr essure ulcer both buttock --see nurs ing for detail ext remities bilateral pitting edema bot h feet mild hypere jeb dorsum of righ t foot good pulses , cold extremities , unchanged from yesterday MSK: no tenderness on spin e Neuro:? motor gr ossly intact Psych : flat affect General: cooperative and no acute distress HEENT: Head: Yes normocephalic Resp: Effort & Inspection: normal respiratory effort Auscultation: clear to auscultation bilaterally Cardio: Jugular venous distension: no JVD Rate: regular rate Rhythm: regular rhythm Heart sounds: S1 normal heart sound present and S2 normal hear t sound present GI: Auscultation: normal bowel sounds Skin: General skin exam: no rashes or lesions noted Neuro: General: moves all extremities Extrem: General: Yes no clubbing, cyanosis or edema Objective Data Labs CBC & Chem 7: 02/23/22 11:10 02/23/22 06:07 Labs: Laboratory Results - last 24 hr 02/22/22 02/22/22 02/22/22 06:27 06:27 06:27 WBC 6.8 RBC 2.54 L Hgb 8.0 L Hct 25.1 L D MCV 98.8 H MCH 31.5 MCHC 31.9 RDW 14.1 Plt Count 394 MPV 9.1 L Immature Gran % (Auto) 0.3 Neut % (Auto) 72.2 Lymph % (Auto) 18.0 L [place] % (Auto) 6.9 Eos % (Auto) 2.5 Baso % (Auto) 0.1 Lymph # (Auto) 1.2 [place] # (Auto) 0.5 Eos # (Auto) 0.2 Baso # (Auto) 0.0 Abs Immat Gran (auto) 0.02 Absolute Neuts (auto) 4.9 Absolute Nucleated RBC 0.000 Nucleated RBC % (auto) 0.0 PT 11.2 INR 1.0 Sodium 141 Potassium 3.7 Chloride 105 Carbon Dioxide 23 Anion Gap 17 BUN 34 H Creatinine 1.78 H Estim Creat Clear Calc 21.0 Estimated GFR 27 Random Glucose 98 Calcium 8.3 L Magnesium 1.8 Microbiology Microbiology Results: Microbiology 02/01/22 21:06 Blood - Venous Blood Culture - Final No growth after 5 days. 02/01/22 19:26 Blood - Venous Blood Culture - Final No growth after 5 days. 02/02/22 00:00 Urine Catheterized - Straight Catheter Urine Culture - Final Procedures Date of Service Date of Service: 02/22/22 Assessment & Plan Assessment and plan (1) JONES (acute kidney injury): Status: Acute Assessment and Plan: 1. JONES: hemodynamic JONES in the setting of diarrhea and poor PO intake. 2. CKD stage IIIa BL Cr probably 1.4mg/dL 3. [place] acidosis 2/2 CKD and Diarrhea Plan: - c/w PO bicarb - watch tCO2 ( @23) No need for further bicarb drip - imodium prn for diarrhea - tolerating amlodipine 5mg well. - spoke to daughter at bedside (2) Chronic kidney disease: Status: Acute Time Spent With Patient Time: Total time spent is greater than 50% in coordination of care (as documented) at patient's floor/unit and/or counseling patient: Progress Note: Quality Stroke Does the patient have a stroke diagnosis?: No
[2022-02-22 11:19] LABS: COVID-19 Test Negative (Negative); IDNOW Serial# 16C4AD1C
--- NOTE | 2022-02-22 12:23 | P.PNIM_ITS ---
Subjective Subjective Date of Service: 02/22/22 Interval History: tolerating diet diarrhea resolved cristo out Review of Systems Review of Systems: Yes all other systems are reviewed and are negative Physical Exam Vital Signs: Vital Signs: Last Vital Signs Temp 98.6 F 02/22/22 11:42 Pulse 86 02/22/22 11:42 Resp 20 02/22/22 11:42 BP 96/56 L 02/22/22 11:42 Pulse Ox 96 02/22/22 11:42 O2 Del Method 02/22/22 11:42 O2 Flow Rate 1 02/19/22 15:48 FiO2 35 02/04/22 11:22 BMI result Body Mass Index 27.5 Gen: in no acute distress HEENT: sclera anicteric, moist mucus membranes Neck: supple Lungs: clear to auscultation bilaterally Heart: regular rate and rhythm, no murmurs Abd: soft, non-tender, non-distended, midline laparotomy wound with cristo clean/dry/intact Ext: 1+ edema of legs, discolored R toes [chronic] Skin: warm/well-perfused, stage 2 pressure ulcers bilateral buttocks Neuro: alert and oriented x3, no focal findings Psych: appropriate affect Objective Data Active Medications Acetaminophen (Acetaminophen Supp 650 Mg Supp.Rect) 650 mg [place] Q6H PRN PRN Reason: Pain, Mild (Pain Scale 1-3) Acetaminophen (Acetaminophen 325 Mg Tablet) 650 mg PO Q6H PRN PRN Reason: Pain, Mild (Pain Scale 1-3) Last Admin: 02/20/22 20:48 Dose: 650 mg Documented By: SHRAVAN Albuterol/Ipratropium (Albuterol/Iprat 2.5/0.5mg 3 Ml Ampul.Neb) 3 ml INHALE RQ4H PRN PRN Reason: shortness of breath or wheez Allopurinol (Allopurinol 100 Mg Tablet) 100 mg PO DAILY [facility] Last Admin: 02/22/22 08:42 Dose: 100 mg Documented By: RILEY-SOFLUZ Amlodipine Besylate (Amlodipine Besylate 5 Mg Tablet) 5 mg PO DAILY [facility]; Protocol Last Admin: 02/22/22 08:37 Dose: 5 mg Documented By: RILEY-ADELIAFA Bisacodyl (Bisacodyl 10 Mg Supp.Rect) 10 mg [place] DAILY PRN PRN Reason: Constipation Lidocaine (Lidocaine 4 % Patch Adh..Patch) 1 patch TRANSDERMA DAILY [facility]; Protocol Last Admin: 02/22/22 08:38 Dose: 1 patch Documented By: LANE Loperamide HCl (Loperamide Hcl 2 Mg Capsule) 2 mg PO Q4H PRN PRN Reason: Diarrhea Last Admin: 02/20/22 20:56 Dose: 2 mg Documented By: FOSTEKR Magnesium Oxide (Magnesium Oxide 400 Mg Tablet) 400 mg PO BIDPC [facility] Last Admin: 02/22/22 08:37 Dose: 400 mg Documented By: LANE Melatonin (Melatonin 3 Mg Tablet) 3 mg PO BEDTIME PRN PRN Reason: sleep Multi-Ingred Cream/Lotion/Oil/Oint (Mineral Oil/Petrolatum,White 106 Gm Tube) 1 appl TOPICAL BID [facility]; Protocol Last Admin: 02/22/22 08:38 Dose: 1 appl Documented By: LANE Omeprazole (Omeprazole 20 Mg Capsule.Dr) 20 mg PO DAILY@0630 [facility] Last Admin: 02/22/22 06:25 Dose: 20 mg Documented By: GENEVIEVE Ondansetron HCl (Ondansetron Hcl 4 Mg/2 Ml Vial) 4 mg IVPUSH Q8H PRN PRN Reason: Nausea and Vomiting Last Admin: 02/18/22 05:11 Dose: 4 mg Documented By: NAHOMI Pregabalin (Pregabalin 75 Mg Capsule) 75 mg PO BID [facility] Last Admin: 02/22/22 08:37 Dose: 75 mg Documented By: LANE Sertraline HCl (Sertraline Hcl 100 Mg Tablet) 100 mg PO DAILY [facility] Last Admin: 02/22/22 08:37 Dose: 100 mg Documented By: LANE Simethicone (Simethicone 80 Mg Tab.Chew) 80 mg PO BID PRN PRN Reason: Gas Last Admin: 02/19/22 10:54 Dose: 80 mg Documented By: NORMA Sodium Bicarbonate (Sodium Bicarbonate 650 Mg Tablet) 650 mg PO BID [facility] Last Admin: 02/22/22 08:37 Dose: 650 mg Documented By: LANE Sodium Chloride (0.9 % Sodium Chloride Flush 3 Ml Syringe) 3 ml IVFLUSH QSHIFT [facility] Last Admin: 02/22/22 07:43 Dose: Not Given Documented By: RILEY-EJ Non-Admin Reason: See Note Trazodone HCl (Trazodone Hcl 50 Mg Tablet) 50 mg PO BEDTIME PRN PRN Reason: Insomnia Last Admin: 02/19/22 21:48 Dose: 50 mg Documented By: FOSTEKMaykel Trazodone HCl (Trazodone Hcl 25 Mg Halftab) 25 mg PO BEDTIME [facility] Last Admin: 02/21/22 23:11 Dose: 25 mg Documented By: DESSTEFANIA Zinc Acetate/Diphenhydramine (Diphenhydramine Hcl 2 % Cream 28 Gm Tube) 1 appl TOPICAL QID PRN; Protocol PRN Reason: Itching Labs CBC & Chem 7: 02/22/22 06:27 02/22/22 06:27 Labs: Laboratory Results - last 24 hr 02/22/22 02/22/22 02/22/22 06:27 06:27 06:27 MCV 98.8 H MCH 31.5 MCHC 31.9 RDW 14.1 Plt Count 394 MPV 9.1 L Immature Gran % (Auto) 0.3 Neut % (Auto) 72.2 Lymph % (Auto) 18.0 L [place] % (Auto) 6.9 Eos % (Auto) 2.5 Baso % (Auto) 0.1 Lymph # (Auto) 1.2 [place] # (Auto) 0.5 Eos # (Auto) 0.2 Baso # (Auto) 0.0 Abs Immat Gran (auto) 0.02 Absolute Neuts (auto) 4.9 Absolute Nucleated RBC 0.000 Nucleated RBC % (auto) 0.0 PT 11.2 INR 1.0 Anion Gap 17 Estim Creat Clear Calc 21.0 Estimated GFR 27 Random Glucose 98 Calcium 8.3 L Magnesium 1.8 COVID-19 ([facility]) COVID-19 Clin Com 02/22/22 10:23 MCV MCH MCHC RDW Plt Count MPV Immature Gran % (Auto) Neut % (Auto) Lymph % (Auto) [place] % (Auto) Eos % (Auto) Baso % (Auto) Lymph # (Auto) [place] # (Auto) Eos # (Auto) Baso # (Auto) Abs Immat Gran (auto) Absolute Neuts (auto) Absolute Nucleated RBC Nucleated RBC % (auto) PT INR Anion Gap Estim Creat Clear Calc Estimated GFR Random Glucose Calcium Magnesium COVID-19 (JARRED) Negative COVID-19 Clin Com See Note Assessment and Plan (1) Regurgitation of food: Status: Acute Plan d#22 81yo F with unspecified mononeuropathy of BLE, CKD, spinal stenosis admitted for high-grade SBO 02/01/22, s/p ex-lap/TESHA 02/03 after which she remained intubated in the ICU; extubated 02/04 then transferred to the medical service where she had a prolonged course complicated by N/V, malnutrition, and electrolyte abnormalities due to postop ileus # SBO, postop ileus, resolving - ex-lap TESHA 02/03, postop went to ICU intubated - extubated 02/04, transferred to floor - NGT out 02/07 then started on liquid diet, complicated by N/V/D - AXR 02/10 + 02/13 with no obstruction; possible postop ileus - CT A/P 02/11 no abscess, no SBO; possible ileus - Cdiff 02/09 + 02/12 negative - WBC count normalized without ABX - per GI impression also was of postop ileus; SBFT showed prominent SB loops and delayed transit of oral contrast - per discussion with pt, daughter, and Gen Surg, will defer management of hiatal hernia to outpatient setting # JONES on CKD3 # metabolic acidosis - SCr peaked at 2.44 on 02/05, creatinine?normalized to 1.2 but rising likely due to vomiting + diarrhea- now stabilized at 1.7. Bicarbonate drip stopped, continue PO bicarbonate. 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; also has COPD - resolved, off suppl O2 now # COPD without acute exacerbation - prn nebs # UTI - completed ceftriaxone # hypoK - repleted # leukocytosis - resolved # chronic macrocytic anemia - H+H stable, B12 + folate normal # neuropathy # chronic back pain - resumed pregabalin # mod pr/elise malnutrition - Ensure # st 2 pressure ulcers bilateral buttocks - air loss mattress, barrier cream, position changes # VTE ppx: UFH In my clinical judgment, the patient requires continued hospitalization for the following reasons: STR placement Quality Stroke Does the patient have a stroke diagnosis?: No VTE Prior VTE?: No VTE Risk Level:: Medical - moderate - high VTE Device Contraindication: N/A - Device Ordered VTE Drug Contraindication: Treatment Not Indicated
--- NOTE | 2022-02-22 13:07 | PC.NURSE ---
informed md pt c/o severe lower back pain requesting Aleve or stronger stating tylenol has minimal effect. PT evaluated pt this AM, placed pt to chair. pt bathed this AM.
[2022-02-22] MEDS: Acetaminophen 325 MG TABLET 650 MG PO ×2 (13:24→20:34)
[2022-02-22] MEDS: oxyCODONE HCl Immed Release 5 MG TABLET PO ×2 (13:44→20:34)
[2022-02-22] MEDS: traZODone HCL 25 MG HALFTAB PO (20:33)
[2022-02-22] MEDS: Melatonin 3 MG TABLET PO (22:26)
[2022-02-22] MEDS: 0.9 % Sodium Chloride Flush 3 ML SYRINGE IVFLUSH (22:26)
[2022-02-22] MEDS: traZODone HCL 50 MG TABLET PO (22:26)
[2022-02-23] VITALS (15 sets, daily range): BP systolic 94–119; BP diastolic 36–65; PULSE 84–122; RESP 15–22; TEMP 36.5–38.1; O2SAT 77–100
[2022-02-23] MEDS: oxyCODONE HCl Immed Release 5 MG TABLET PO (01:45)
[2022-02-23] MEDS: Omeprazole 20 MG CAPSULE.DR PO (05:34)
[2022-02-23 07:06] LABS: Anion Gap 23 (12-20); Blood Urea Nitrogen 41 mg/dL (9-16); Calcium 8.6 mg/dL (8.4-10.2); Carbon Dioxide 16 mmol/L (22-29); Chloride 106 mmol/L (96-108); Creatinine Clr Calc Pharmacy 20.2; Estimated Glomerular Filt Rate 26; Glucose Random 101 mg/dL (60-115); Potassium 4.9 mmol/L (3.3-5.1); Sodium 140 mmol/L (135-145)
[2022-02-23] MEDS: Lidocaine 4 % Patch ADH..PATCH 1 PATCH TRANSDERMA (07:48)
[2022-02-23] MEDS: amLODIPine Besylate 5 MG TABLET PO (07:49)
[2022-02-23] MEDS: allopurinoL 100 MG TABLET PO (07:49)
[2022-02-23] MEDS: Pregabalin 75 MG CAPSULE PO (07:49)
[2022-02-23] MEDS: Magnesium Oxide 400 MG TABLET PO (07:49)
[2022-02-23] MEDS: Sertraline HCL 100 MG TABLET PO (07:49)
[2022-02-23] MEDS: Sodium Bicarbonate 650 MG TABLET PO (07:49)
[2022-02-23] MEDS: 0.9 % Sodium Chloride Flush 3 ML SYRINGE IVFLUSH ×3 (07:57→21:44)
[2022-02-23 10:58] LABS: Glucose, Whole Blood 77 mg/dL (60-115)
--- NOTE | 2022-02-23 11:18 | MHC.CM.PN ---
Per MD discharge is cancelled today. Patient has developed PNA. Transportation has been cancelled. Aidan Hogue has been notified that discharge is cancelled ; because the patient has PNA.
[2022-02-23 11:20] LABS: Basophils Percent Auto 0.1 % (0-2); Eosinophils Percent Auto 0.1 % (0-4); Hematocrit 25.7 % (37.0-47.0); Hemoglobin 8.3 g/dl (12.0-16.0); Imm Gran Abs Auto 0.05 X10*3/uL (0.00-0.03); Imm Gran Pct Auto 0.3 % (0.0-0.4); Lymphocytes Absolute Auto 0.4 X10*3/uL (1.2-4.9); Lymphocytes Percent Auto 2.4 % (20-40); MANUAL DIFF FLAG SCAN; Mean Corpuscular HGB Conc 32.3 g/dl (31.0-35.0); Mean Corpuscular Hemoglobin 31.8 pg (27.0-33.0); Mean Corpuscular Volume 98.5 fL (80.0-98.0); Mean Platelet Volume 8.9 fL (9.4-12.3); Monocytes Absolute Auto 0.4 X10*3/uL (0.1-1.2); Monocytes Percent Auto 2.6 % (2-11); Neutrophils Absolute Auto 13.9 x10*3/uL (2.0-8.3); Neutrophils Percent Auto 94.5 % (45-73); Platelet Count 366 X10*3/uL (160-400); Red Blood Count 2.61 X10*6/uL (4.20-5.50); Red Cell Distribution Width 14.2 % (11.0-16.0); SCAN SMEAR FLAG 1; White Blood Count 14.7 X10*3/uL (4.8-10.8)
[2022-02-23] MEDS: Mineral Oil/Petrolatum,White 106 GM Tube 1 APPL TOPICAL (11:20)
[2022-02-23] MEDS: Furosemide 40 MG/4 ML VIAL IVPUSH (11:21)
[2022-02-23] MEDS: Albuterol/Iprat 2.5/0.5MG 3 ML AMPUL.NEB INHALE ×3 (11:30→19:53)
[2022-02-23 11:42] LABS: Alanine Aminotransferase 8 U/L (0-31); Albumin Level 2.8 g/dL (3.5-5.0); Alkaline Phosphatase 74 U/L (39-117); Aspartate Amino Transferase 9 U/L (5-31); Bilirubin Direct < 0.2 mg/dL (0.0-0.5); Bilirubin Total < 0.2 mg/dL (0.0-1.0); Total Protein 5.2 g/dL (6.5-8.0)
[2022-02-23 11:43] LABS: B Type Natriuretic Peptide 228 pg/mL (<100)
[2022-02-23 11:47] LABS: SLIDE REVIEW VERIFIED
[2022-02-23 12:13] LABS: Procalcitonin 1.48 ng/mL
--- NOTE | 2022-02-23 12:19 | HO.PM.IMPN ---
Subjective Subjective Date of Service: 02/23/22 Interval History: early this AM around 4am became increasingly tachycardic and also confused tachypneic + dyspneic Tmax 100.0 no hypoxia planned d/c to [facility] today canceled Review of Systems Review of Systems: Yes Unobtainable due to mental status Physical Exam Vital Signs: Vital Signs: Last Vital Signs Temp 99.1 F 02/23/22 10:11 Pulse 111 H 02/23/22 11:35 Resp 20 02/23/22 11:35 BP 105/56 L 02/23/22 10:11 Pulse Ox 96 02/23/22 10:11 O2 Del Method 02/23/22 07:26 O2 Flow Rate 1 02/19/22 15:48 FiO2 78 02/23/22 07:26 BMI result Body Mass Index 27.5 Gen: confused, mild resp distress HEENT: sclera anicteric, moist mucus membranes Neck: supple Lungs: coarse wet L-sided inspiratory crackles Heart: regular, tachycardic, no murmurs Abd: soft, non-tender, non-distended Ext: 1+ lower extremity edema Skin: warm/well-perfused Neuro: alert, confused but redirectable Psych: impaired insight Objective Data Active Medications Acetaminophen (Acetaminophen Supp 650 Mg Supp.Rect) 650 mg IN Q6H PRN PRN Reason: Pain, Mild (Pain Scale 1-3) Acetaminophen (Acetaminophen 325 Mg Tablet) 650 mg PO Q6H PRN PRN Reason: Pain, Mild (Pain Scale 1-3) Last Admin: 02/22/22 20:34 Dose: 650 mg Documented By: SERVANDO Albuterol Sulfate (Albuterol Sulfate (0.083%) 2.5 Mg/3 Ml Vial.Neb) 2.5 mg INHALE Q2H PRN PRN Reason: Shortness of Breath/Wheezing Albuterol/Ipratropium (Albuterol/Iprat 2.5/0.5mg 3 Ml Ampul.Neb) 3 ml INHALE RQ4H WHILE AWAKE [facility] Last Admin: 02/23/22 11:30 Dose: 3 ml Documented By: MARISA Allopurinol (Allopurinol 100 Mg Tablet) 100 mg PO DAILY [facility] Last Admin: 02/23/22 07:49 Dose: 100 mg Documented By: KARO Amlodipine Besylate (Amlodipine Besylate 5 Mg Tablet) 5 mg PO DAILY [facility]; Protocol Last Admin: 02/23/22 07:49 Dose: 5 mg Documented By: KARO Bisacodyl (Bisacodyl 10 Mg Supp.Rect) 10 mg IN DAILY PRN PRN Reason: Constipation Ceftriaxone Sodium 1 gm/ (Sodium Chloride) 50 mls @ 100 mls/hr IV Q24H [facility] Lidocaine (Lidocaine 4 % Patch Adh..Patch) 1 patch TRANSDERMA DAILY [facility]; Protocol Last Admin: 02/23/22 07:48 Dose: 1 patch Documented By: KARO Loperamide HCl (Loperamide Hcl 2 Mg Capsule) 2 mg PO Q4H PRN PRN Reason: Diarrhea Last Admin: 02/20/22 20:56 Dose: 2 mg Documented By: FOSTEKMaykel Magnesium Oxide (Magnesium Oxide 400 Mg Tablet) 400 mg PO BIDPC [facility] Last Admin: 02/23/22 07:49 Dose: 400 mg Documented By: KARO Multi-Ingred Cream/Lotion/Oil/Oint (Mineral Oil/Petrolatum,White 106 Gm Tube) 1 appl TOPICAL BID [facility]; Protocol Last Admin: 02/23/22 11:20 Dose: 1 appl Documented By: KARO Omeprazole (Omeprazole 20 Mg Capsule.Dr) 20 mg PO DAILY@0630 [facility] Last Admin: 02/23/22 05:34 Dose: 20 mg Documented By: RANCHOLM Ondansetron HCl (Ondansetron Hcl 4 Mg/2 Ml Vial) 4 mg IVPUSH Q8H PRN PRN Reason: Nausea and Vomiting Last Admin: 02/18/22 05:11 Dose: 4 mg Documented By: NAHOMI Pregabalin (Pregabalin 75 Mg Capsule) 37.5 mg PO BID [facility] Sertraline HCl (Sertraline Hcl 100 Mg Tablet) 100 mg PO DAILY [facility] Last Admin: 02/23/22 07:49 Dose: 100 mg Documented By: KARO Simethicone (Simethicone 80 Mg Tab.Chew) 80 mg PO BID PRN PRN Reason: Gas Last Admin: 02/19/22 10:54 Dose: 80 mg Documented By: NORMA Sodium Bicarbonate (Sodium Bicarbonate 650 Mg Tablet) 650 mg PO BID [facility] Last Admin: 02/23/22 07:49 Dose: 650 mg Documented By: KARO Sodium Chloride (0.9 % Sodium Chloride Flush 3 Ml Syringe) 3 ml IVFLUSH QSHIFT [facility] Last Admin: 02/23/22 07:57 Dose: 3 ml Documented By: KARO Zinc Acetate/Diphenhydramine (Diphenhydramine Hcl 2 % Cream 28 Gm Tube) 1 appl TOPICAL QID PRN; Protocol PRN Reason: Itching Labs CBC & Chem 7: 02/23/22 11:10 02/23/22 06:07 Labs: Laboratory Results - last 24 hr 02/23/22 02/23/22 02/23/22 06:07 07:23 11:10 MCV 98.5 H MCH 31.8 MCHC 32.3 RDW 14.2 Plt Count 366 MPV 8.9 L Immature Gran % (Auto) 0.3 Neut % (Auto) 94.5 H Lymph % (Auto) 2.4 L [place] % (Auto) 2.6 Eos % (Auto) 0.1 Baso % (Auto) 0.1 Lymph # (Auto) 0.4 L [place] # (Auto) 0.4 Eos # (Auto) 0.0 Baso # (Auto) 0.0 Abs Immat Gran (auto) 0.05 H Absolute Neuts (auto) 13.9 H Absolute Nucleated RBC 0.000 Nucleated RBC % (auto) 0.0 Smear Tech's Comments VERIFIED Anion Gap 23 H Estim Creat Clear Calc 20.2 Estimated GFR 26 POC Glucose 77 Random Glucose 101 Calcium 8.6 Total Bilirubin Direct Bilirubin AST ALT Alkaline Phosphatase B-Natriuretic Peptide Total Protein Albumin Procalcitonin 02/23/22 02/23/22 02/23/22 11:10 11:10 11:14 MCV MCH MCHC RDW Plt Count MPV Immature Gran % (Auto) Neut % (Auto) Lymph % (Auto) [place] % (Auto) Eos % (Auto) Baso % (Auto) Lymph # (Auto) Cook # (Auto) Eos # (Auto) Baso # (Auto) Abs Immat Gran (auto) Absolute Neuts (auto) Absolute Nucleated RBC Nucleated RBC % (auto) Smear Tech's Comments Anion Gap Estim Creat Clear Calc Estimated GFR POC Glucose Random Glucose Calcium Total Bilirubin < 0.2 Direct Bilirubin < 0.2 AST 9 D ALT 8 Alkaline Phosphatase 74 B-Natriuretic Peptide 228 H Total Protein 5.2 L Albumin 2.8 L Procalcitonin 1.48 Assessment and Plan (1) Regurgitation of food: Status: Acute Plan d#23 81yo F with unspecified mononeuropathy of BLE, CKD, spinal stenosis admitted for high-grade SBO 02/01/22, s/p ex-lap/TESHA 02/03 after which she remained intubated in the ICU; extubated 02/04 then transferred to the medical service where she had a prolonged course complicated by N/V, malnutrition, and electrolyte abnormalities due to postop ileus was preparing for discharge to [facility] 02/23 but then developed tachycardia/tachypnea/leukocytosis, elevated PCT; found to have PNA # PNA, hospital-acquired - BCx sent; will also send pneumococcal + Legionella antigens; consult ID; start pip/jean; check MRSA swab; trend PCT. not hypoxic. Covid-19 JARRED negative 02/22. 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 # SBO, postop ileus, resolving - ex-lap TESHA 02/03, postop went to ICU intubated - extubated 02/04, transferred to floor - NGT out 02/07 then started on liquid diet, complicated by N/V/D - AXR 02/10 + 02/13 with no obstruction; possible postop ileus - CT A/P 02/11 no abscess, no SBO; possible ileus - Cdiff 02/09 + 02/12 negative - WBC count normalized without ABX - per GI impression also was of postop ileus; SBFT showed prominent SB loops and delayed transit of oral contrast - diet advanced - cristo out 02/22 - per discussion with pt, daughter, and Gen Surg, will defer management of hiatal hernia to outpatient setting # JONES on CKD3 # metabolic acidosis - SCr peaked at 2.44 on 02/05, creatinine?normalized to 1.2 but rising likely due to vomiting + diarrhea- now stabilized around 1.8. Bicarbonate drip stopped, continue PO bicarbonate. 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; per pt and family, no known hx of COPD - resolved, off suppl O2 now # UTI - completed ceftriaxone # hypoK - repleted # leukocytosis - resolved # chronic macrocytic anemia - H+H stable, B12 + folate normal # neuropathy # chronic back pain - resumed pregabalin # mod pr/elise malnutrition - Ensure # st 2 pressure ulcers bilateral buttocks - air loss mattress, barrier cream, position changes # VTE ppx: UFH In my clinical judgment, the patient requires continued hospitalization for the following reasons: PNA Quality Stroke Does the patient have a stroke diagnosis?: No VTE Prior VTE?: No VTE Risk Level:: Medical - moderate - high VTE Device Contraindication: N/A - Device Ordered VTE Drug Contraindication: Treatment Not Indicated
[2022-02-23] MEDS: Acetaminophen 325 MG TABLET 650 MG PO (13:04)
[2022-02-23] MEDS: Piperacillin Sodium/Tazobactam 2.25 GM in 0.9 % Sodium Chloride 50 ML IV ×2 (13:05→21:43)
--- NOTE | 2022-02-23 14:01 | PM.PNNEP ---
Subjective Subjective Date of Service: 02/24/22 Interval history: early this AM around 4am became increasingly tachycardic and also confused tachypneic + dyspneic Tmax 100.0 no hypoxia planned d/c to [facility] today canceled Physical Exam Vital Signs: Vital Signs: Last Vital Signs Temp 99.1 F 02/23/22 10:11 Pulse 111 H 02/23/22 11:35 Resp 20 02/23/22 11:35 BP 105/56 L 02/23/22 10:11 Pulse Ox 96 02/23/22 10:11 O2 Del Method 02/23/22 07:26 O2 Flow Rate 1 02/19/22 15:48 FiO2 78 02/23/22 07:26 BMI result Body Mass Index 27.5 Const: General: cooperative and no acute distress HEENT: Head: Yes normocephalic Resp: Effort & Inspection: normal respiratory effort Auscultation: clear to auscultation bilaterally Cardio: Jugular venous distension: no JVD Rate: regular rate Rhythm: regular rhythm Heart sounds: S1 normal heart sound present and S2 normal heart sound present GI: Auscultation: normal bowel sounds Skin: General skin exam: no rashes or lesions noted Neuro: General: moves all extremities Extrem: General: Yes no clubbing, cyanosis or edema Objective Data Labs CBC & Chem 7: 02/24/22 07:04 02/24/22 07:04 Labs: Laboratory Results - last 24 hr 02/23/22 02/23/22 02/23/22 06:07 07:23 11:10 WBC 14.7 H RBC 2.61 L Hgb 8.3 L Hct 25.7 L MCV 98.5 H MCH 31.8 MCHC 32.3 RDW 14.2 Plt Count 366 MPV 8.9 L Immature Gran % (Auto) 0.3 Neut % (Auto) 94.5 H Lymph % (Auto) 2.4 L [place] % (Auto) 2.6 Eos % (Auto) 0.1 Baso % (Auto) 0.1 Lymph # (Auto) 0.4 L [place] # (Auto) 0.4 Eos # (Auto) 0.0 Baso # (Auto) 0.0 Abs Immat Gran (auto) 0.05 H Absolute Neuts (auto) 13.9 H Absolute Nucleated RBC 0.000 Nucleated RBC % (auto) 0.0 Smear Tech's Comments VERIFIED Sodium 140 Potassium 4.9 D Chloride 106 Carbon Dioxide 16 L Anion Gap 23 H BUN 41 H Creatinine 1.85 H Estim Creat Clear Calc 20.2 Estimated GFR 26 POC Glucose 77 Random Glucose 101 Calcium 8.6 Total Bilirubin Direct Bilirubin AST ALT Alkaline Phosphatase B-Natriuretic Peptide Total Protein Albumin Procalcitonin 02/23/22 02/23/22 02/23/22 11:10 11:10 11:14 WBC RBC Hgb Hct MCV MCH MCHC RDW Plt Count MPV Immature Gran % (Auto) Neut % (Auto) Lymph % (Auto) [place] % (Auto) Eos % (Auto) Baso % (Auto) Lymph # (Auto) [place] # (Auto) Eos # (Auto) Baso # (Auto) Abs Immat Gran (auto) Absolute Neuts (auto) Absolute Nucleated RBC Nucleated RBC % (auto) Smear Tech's Comments Sodium Potassium Chloride Carbon Dioxide Anion Gap BUN Creatinine Estim Creat Clear Calc Estimated GFR POC Glucose Random Glucose Calcium Total Bilirubin < 0.2 Direct Bilirubin < 0.2 AST 9 D ALT 8 Alkaline Phosphatase 74 B-Natriuretic Peptide 228 H Total Protein 5.2 L Albumin 2.8 L Procalcitonin 1.48 Microbiology Microbiology Results: Microbiology 02/01/22 21:06 Blood - Venous Blood Culture - Final No growth after 5 days. 02/01/22 19:26 Blood - Venous Blood Culture - Final No growth after 5 days. 02/02/22 00:00 Urine Catheterized - Straight Catheter Urine Culture - Final Procedures Date of Service Date of Service: 02/23/22 Assessment & Plan Assessment and plan (1) JONES (acute kidney injury): Status: Acute Assessment and Plan: 1. JONES: hemodynamic JONES in the setting of diarrhea and poor PO intake. 2. CKD stage IIIa BL Cr probably 1.4mg/dL 3. [place] acidosis 2/2 CKD and Diarrhea Plan: - c/w PO bicarb - watch tCO2 ( @23) No need for further bicarb drip - imodium prn for diarrhea - tolerating amlodipine 5mg well. - spoke to daughter at bedside (2) Chronic kidney disease: Status: Acute Time Spent With Patient Time: Total time spent is greater than 50% in coordination of care (as documented) at patient's floor/unit and/or counseling patient: Progress Note: Quality Stroke Does the patient have a stroke diagnosis?: No
--- NOTE | 2022-02-23 15:30 | MHC.CLN ---
F/U INTAKE APPEARS GOOD, 50-100%. DIETRX: REGULAR-APPROPRIATE RECOMMEND RE-STARTING ENSURE CLEAR TID PROVIDES ADDITIONAL 720 KCALS, 24 G PROTEIN. PATIENT WITH STAGE II TO BUTTOCKS. SUPPLEMENT APPROPRIATE TO PROMOTE WOUND HEALING FOLLOW FOR DIET TOLERANCE, INTAKE, AND WOUND HEALING
[2022-02-23 15:32] LABS: MRSA Nasal PCR NEGATIVE (Negative); SA Nasal PCR POSITIVE (Negative)
--- NOTE | 2022-02-23 16:19 | MHC.SL.SWA ---
Addendum entered and electronically signed by Violeta Ga MA, CCC-VENEER SAMPLE MAKER 02/23/22 16:35: D.S. Original Note: Speech Pathologist Impression: Oropharyngeal Phase Dysphagia Risk of Aspiration Due to: Hx of Recent Extubation Reduced Cognition Dysphasia Diet Status: Downgrade to NPO pending improvement in alertness Liquid Consistency and Strategies for Safe Swallow: Liquid Intake Recommendation: NPO Liquid Intake Strategies: Solid Food Consistency: Dietary Recommendations: NPO Oral Medication Intake: NPO Please contact the pharmacy regarding appropriate crushable or liquid drug formulations that are available whenever modified delivery is recommended. Supervision While Eating and Drinking for Safe Swallow: PO with VENEER SAMPLE MAKER Recommendation for Speech: Outpatient Speech Therapy Inpatient Speech Therapy Pt seen for bedside swallow evaluation this afternoon. Pt initially responded to VENEER SAMPLE MAKER but became more drowsy and lethargic as time progressed. Pt would not keep eyes open. Speech was mainly incoherent and unintelligible. Attempted oral mech. Pt was inconsistent in following commands. Daughter attempted to give pt thin liquid via straw. Pt coughed immediately upon second sip. D/t s/s of aspiration on thin liquids and pt's cognitive status, pt was not appropriate for further PO trials. Recommend NPO until pt is awake and alert enough to take PO. VENEER SAMPLE MAKER will check in tomorrow to re-assess. Boat Motor Mechanic Clinican/Clinical Fellow: Yes: Michelle Hunter M.A., CF-VENE[employer] SAMPLE MAKER Supervisory Statement: I have reviewed and agree with the student/clinical fellow's documentation: Speech Language Pathologist:
[2022-02-23] MEDS: 0.9 % Sodium Chloride 1,917 ML 1917 ML IV (16:24)
--- NOTE | 2022-02-23 16:42 | PM.EVENT ---
Event Note Date of Service: 02/23/22 Event Note: Called by MARINO Albert Pt with AMS/lethargy. BP only 94/38 manual. P 100. Per ACTIVITIES SPECIALIST unable to tolerate POs due to lethargy. Ordered 30 cc/kg NS STAT Arrived to find pt lethargic but arousable, confused, in Trendelenberg, SaO2 77% on room air -> increased to 100% on NRB and now being transitioned to Stoll cannula. Strong radial pulse. Repeat manual BP 104/50. On pip-jean for HCAP. MRSA nasal swab returned positive- will add vancomycin. Impression: HCAP - continue fluid bolus and recheck BP - check lactate - broaden coverage- add vanco to pip-jean - check ABG - recheck BMP - check CT head though suspect encephalopathy
--- NOTE | 2022-02-23 16:44 | W.PM.IDCN ---
History of Present Illness Data of Consult Service Date: 02/23/22 Requesting physician: Kalie Butt Primary Care Provider: Ramsey Gooden MD HPI Reason for consult: confusion,tachycardia,fever She presents with abdominal discomfort 02/01,exp lap 02/03 high grade SBO. She was going to Rehab today and developed fever and tachycardia overnight. She has infiltrates mostly left lung Review of Systems Review of Systems: Yes Unobtainable due to mental condition PMFSH Past Medical History Medical History Anxiety Chronic kidney disease COPD (chronic obstructive pulmonary disease) Gout Peripheral neuropathy Functional capacity: uses cane/walker Family History Family history: reviewed and not pertinent Surgical History Surgical History H/O vaginal hysterectomy History of right hip replacement Social History Social History Alcohol intake: unknown Patient Tobacco Use Status: Never used Tobacco Currently Displaying Signs/Symptoms of Drug Intoxication Withdrawal: No Are you DNR?: No Advance Directives: Yes Advance Directives on File: Yes Advance Directives Date on File: 02/03/22 service: No Meds Allergies Allergy/AdvReac Type Severity Reaction Status Date / Time Opioids - Morphine Analogues AdvReac Intermediate Confusion Verified 02/23/22 11:18 oxycodone AdvReac Hallucinati Verified 02/23/22 13:45 ons Active Medications: Current Medications Acetaminophen (Acetaminophen Supp 650 Mg Supp.Rect) 650 mg PA Q6H PRN PRN Reason: Pain, Mild (Pain Scale 1-3) Acetaminophen (Acetaminophen 325 Mg Tablet) 650 mg PO Q6H PRN PRN Reason: Pain, Mild (Pain Scale 1-3) Last Admin: 02/23/22 13:04 Dose: 650 mg Albuterol Sulfate (Albuterol Sulfate (0.083%) 2.5 Mg/3 Ml Vial.Neb) 2.5 mg INHALE Q2H PRN PRN Reason: Shortness of Breath/Wheezing Albuterol/Ipratropium (Albuterol/Iprat 2.5/0.5mg 3 Ml Ampul.Neb) 3 ml INHALE RQ4H WHILE AWAKE [facility] Last Admin: 02/23/22 15:20 Dose: 3 ml Amlodipine Besylate (Amlodipine Besylate 5 Mg Tablet) 5 mg PO DAILY [facility]; Protocol Last Admin: 02/23/22 07:49 Dose: 5 mg Bisacodyl (Bisacodyl 10 Mg Supp.Rect) 10 mg PA DAILY PRN PRN Reason: Constipation Piperacillin Sod/Tazobactam (Sod 2.25 gm/ Sodium Chloride) 50 mls @ 100 mls/hr IV Q6H [facility] Last Infusion: 02/23/22 14:51 Dose: Infused Sodium Chloride (Ns) 1,917 mls @ 1,917 mls/hr 30 ml/kg infuse over 1 hr (1917 ml) IV .Q1H [facility] Stop: 02/23/22 17:15 Lidocaine (Lidocaine 4 % Patch Adh..Patch) 1 patch TRANSDERMA DAILY [facility]; Protocol Last Admin: 02/23/22 07:48 Dose: 1 patch Loperamide HCl (Loperamide Hcl 2 Mg Capsule) 2 mg PO Q4H PRN PRN Reason: Diarrhea Last Admin: 02/20/22 20:56 Dose: 2 mg Magnesium Oxide (Magnesium Oxide 400 Mg Tablet) 400 mg PO BIDPC [facility] Last Admin: 02/23/22 07:49 Dose: 400 mg Multi-Ingred Cream/Lotion/Oil/Oint (Mineral Oil/Petrolatum,White 106 Gm Tube) 1 appl TOPICAL BID [facility]; Protocol Last Admin: 02/23/22 11:20 Dose: 1 appl Ondansetron HCl (Ondansetron Hcl 4 Mg/2 Ml Vial) 4 mg IVPUSH Q8H PRN PRN Reason: Nausea and Vomiting Last Admin: 02/18/22 05:11 Dose: 4 mg Pharmacy Consult (Consult Rx Vancomycin Dosing) 1 each MISCELLANE NOW STA Stop: 02/23/22 16:20 Sertraline HCl (Sertraline Hcl 100 Mg Tablet) 100 mg PO DAILY [facility] Last Admin: 02/23/22 07:49 Dose: 100 mg Simethicone (Simethicone 80 Mg Tab.Chew) 80 mg PO BID PRN PRN Reason: Gas Last Admin: 02/19/22 10:54 Dose: 80 mg Sodium Bicarbonate (Sodium Bicarbonate 650 Mg Tablet) 650 mg PO BID [facility] Last Admin: 02/23/22 07:49 Dose: 650 mg Sodium Chloride (0.9 % Sodium Chloride Flush 3 Ml Syringe) 3 ml IVFLUSH QSHIFT [facility] Last Admin: 02/23/22 07:57 Dose: 3 ml Zinc Acetate/Diphenhydramine (Diphenhydramine Hcl 2 % Cream 28 Gm Tube) 1 appl TOPICAL QID PRN; Protocol PRN Reason: Itching Home Medications Medication Instructions Recorded Confirmed Last Taken Type allopurinol 100 mg tablet 1 tab PO DAILY 02/02/22 02/02/22 Unknown History atorvastatin 20 mg tablet 1 tab PO DAILY 02/02/22 02/02/22 Unknown History pregabalin 75 mg capsule 1 cap PO BID 02/02/22 02/02/22 Unknown History sertraline 100 mg tablet 1 tab PO DAILY 02/02/22 02/02/22 Unknown History Physical Exam Vital Signs: Vital Signs: Last Vital Signs Temp 100.5 F H 02/23/22 12:57 Pulse 109 H 02/23/22 15:27 Resp 20 02/23/22 15:27 BP 105/56 L 02/23/22 10:11 Pulse Ox 96 02/23/22 10:11 O2 Del Method 02/23/22 07:26 O2 Flow Rate 1 02/19/22 15:48 FiO2 78 02/23/22 07:26 BMI result Body Mass Index 27.5 Const: General: cooperative HEENT: Head: Yes normal to inspection Face and sinus: Yes normal facial exam Mouth: Normal oral and palatal mucosa present Teeth and gingiva: dentition normal Eyes: General: appearance normal, both eyes and all related structures Pupils: Equal, round and reactive pupils present Resp: Effort & Inspection: normal respiratory effort Cardio: Rate: regular rate Rhythm: regular rhythm GI: Palpation (GI): Soft to palpation and nontender : General: Yes no CVA tenderness Back/Spine/Pelvis: Back: no CVA tenderness Skin: General skin exam: no rashes or lesions noted Neuro: General: moves all extremities Cranial nerves: Yes Equal, round and reactive pupils present Extrem: General: Yes normal to inspection Psych: Other: somnolent Results Labs CBC & Chem 7: 02/28/22 06:57 03/01/22 07:59 Labs: Short CBC 02/23/22 Range/Units 11:10 WBC 14.7 H (4.8-10.8) X10*3/uL Hgb 8.3 L (12.0-16.0) g/dl Hct 25.7 L (37.0-47.0) % Plt Count 366 (160-400) X10*3/uL BMP 02/23/22 06:07 Sodium 140 Potassium 4.9 D Chloride 106 Carbon Dioxide 16 L BUN 41 H Creatinine 1.85 H Calcium 8.6 Liver Function 02/23/22 Range/Units 11:14 Total Bilirubin < 0.2 (0.0-1.0) mg/dL Direct Bilirubin < 0.2 (0.0-0.5) mg/dL AST 9 D (5-31) U/L ALT 8 (0-31) U/L Alkaline Phosphatase 74 (39-117) U/L Albumin 2.8 L (3.5-5.0) g/dL Microbiology Microbiology Results: Microbiology 02/01/22 21:06 Blood - Venous Blood Culture - Final No growth after 5 days. 02/01/22 19:26 Blood - Venous Blood Culture - Final No growth after 5 days. 02/02/22 00:00 Urine Catheterized - Straight Catheter Urine Culture - Final Assessment and Plan (1) Respiratory failure: Status: Resolved Likely aspiration pneumonia Possible staph too Plan Continue Zosyn Await nares MRSA Doxycycline cover staph
--- NOTE | 2022-02-23 17:02 | PHA.PROG ---
Admission Date/Time: February 01, 2022 23:10 Indication: Respiratory Weight in k.9 kg Adjusted body weight in Kg: [place] body weight in Kg: Obesity Dosing Indication % IBW: obese model Serum Creatinine - Last 168 Hours 02/18/22 02/19/22 02/20/22 08:49 06:08 06:20 Creatinine 1.62 H 1.76 H 1.70 H 02/21/22 02/22/22 02/23/22 06:43 06:27 06:07 Creatinine 1.84 H 1.78 H 1.85 H Estimated CrCl and GFR - Last 168 Hours 02/18/22 02/19/22 02/20/22 08:49 06:08 06:20 Estim Creat Clear Calc 23.0 21.3 22.0 Estimated GFR 31 28 29 02/21/22 02/22/22 02/23/22 06:43 06:27 06:07 Estim Creat Clear Calc 20.3 21.0 20.2 Estimated GFR 26 27 26 Vancomycin Loading Dose: 1500mg X 1 Current Vancomycin Dosing Regimen: 500mg Q24H Vancomycin Monitoring using AUC goal of 400 - 600 range with trough as surrogate marker: 547mg/L Date and Time for next Vancomycin Level to be drawn: Trough due 02/26/22 @1300 Pharmacist Comments on Vancomycin Plan: Obese model used, continue to monitor renal function and adjust accordingly Vancomycin dosing will take advantage of [employer] as a clinical decision support tool that uses Bayesian modeling to calculate individual patient's pharmacokinetic parameters and forecast the patient's drug concentration time course with the target goal AUC 24 range of 400 - 600 mg/L/hr.
[2022-02-23 17:04] LABS: ABG Base Excess -3.6 mmol/L; ABG HCO3 20 mmol/L (22-26); ABG pCO2 33 mmHg (32-45); ABG pH 7.39 (7.35-7.45); ABG pO2 68 mmHg (83-108)
[2022-02-23 17:21] LABS: Lactic Acid 1.8 mmol/L (0.5-2.0)
[2022-02-23 17:29] LABS: Anion Gap 20 (12-20); Blood Urea Nitrogen 42 mg/dL (9-16); Calcium 7.6 mg/dL (8.4-10.2); Carbon Dioxide 17 mmol/L (22-29); Chloride 105 mmol/L (96-108); Creatinine Clr Calc Pharmacy 17.2; Estimated Glomerular Filt Rate 22; Glucose Random 140 mg/dL (60-115); Magnesium 1.6 mg/dL (1.6-2.6); Potassium 5.2 mmol/L (3.3-5.1); Sodium 137 mmol/L (135-145)
[2022-02-23] MEDS: Lactated Ringers 1,000 ML 100 ML IVCONT (17:46)
[2022-02-23] MEDS: vancomycin HCL 1,500 MG in 0.9 % Sodium Chloride 500 ML 333.33 MG IV (17:46)
[2022-02-23 18:19] LABS: Glucose, Whole Blood 151 mg/dL (60-115)
--- NOTE | 2022-02-23 18:33 | PC.NURSE ---
At 1610 this pt was found to be decreased alertness from earlier today. This pt was lethargic, difficult to arouse but arousable to name but falling asleep shortly after, speech mumbled. BP at this time was 94/38 manually, o2 was 77. MD at bedside. 2 boluses given, pt in trendelenburg, & pt on non rebreather on 15 liters. Blood pressure up to 104/58. Pt started on fluids & antibiotics. Pt oxygen on 100 % on a non rebreather. Pt then placed on 7 liter of 02 via hudsen. Pt more awake, alert and responsive. Call ramirez within reach, pt reposition, safety precautions in place & family at bedside.
[2022-02-23] MEDS: Albumin Human 25 % 100 ML IV (19:42)
[2022-02-23 20:38] LABS: ABG Refer to POC result
[2022-02-24] VITALS (13 sets, daily range): BP systolic 95–121; BP diastolic 52–75; PULSE 60–92; RESP 14–22; TEMP 36.5–37.7; O2SAT 90–100
[2022-02-24] MEDS: Piperacillin Sodium/Tazobactam 2.25 GM in 0.9 % Sodium Chloride 50 ML IV ×4 (03:16→23:56)
[2022-02-24 07:15] LABS: Hematocrit 21.8 % (37.0-47.0); Mean Corpuscular HGB Conc 31.7 g/dl (31.0-35.0); Mean Corpuscular Hemoglobin 31.9 pg (27.0-33.0); Mean Corpuscular Volume 100.9 fL (80.0-98.0); Mean Platelet Volume 9.2 fL (9.4-12.3); Platelet Count 261 X10*3/uL (160-400); Red Blood Count 2.16 X10*6/uL (4.20-5.50); Red Cell Distribution Width 14.3 % (11.0-16.0); White Blood Count 6.1 X10*3/uL (4.8-10.8)
[2022-02-24 07:31] LABS: Anion Gap 19 (12-20); Blood Urea Nitrogen 46 mg/dL (9-16); Calcium 7.9 mg/dL (8.4-10.2); Carbon Dioxide 19 mmol/L (22-29); Chloride 107 mmol/L (96-108); Creatinine Clr Calc Pharmacy 17.6; Estimated Glomerular Filt Rate 22; Glucose Random 109 mg/dL (60-115); Potassium 4.5 mmol/L (3.3-5.1); Sodium 140 mmol/L (135-145)
[2022-02-24 07:44] LABS: Hemoglobin 6.9 g/dl (12.0-16.0)
[2022-02-24] MEDS: Albuterol/Iprat 2.5/0.5MG 3 ML AMPUL.NEB INHALE ×4 (08:18→20:03)
[2022-02-24] MEDS: Lidocaine 4 % Patch ADH..PATCH 1 PATCH TRANSDERMA (10:00)
[2022-02-24] MEDS: 0.9 % Sodium Chloride Flush 3 ML SYRINGE IVFLUSH ×2 (10:01→19:59)
--- NOTE | 2022-02-24 10:22 | MHC.SL.SWA ---
Speech Pathologist Impression: Risk of Aspiration Due to: Hx of Recent Extubation Reduced Cognition Dysphasia Diet Status: Patient presents with swallow WFL. Recommend UPGRADE to REGULAR diet with THIN liquids, pills WHOLE with Liquid, or as preferred by patient. Liquid Consistency and Strategies for Safe Swallow: Liquid Intake Recommendation: Thin Liquid Intake Strategies: Small Sips Solid Food Consistency: Dietary Recommendations: Regular Additional Modifications to Solid Foods: Assure that tray is set up well and patient can access all foods and liquids (e.g. may need containers opened, check that patient is able to cut up solid foods independently). Oral Medication Intake: Whole with Liquid Please contact the pharmacy regarding appropriate crushable or liquid drug formulations that are available whenever modified delivery is recommended. Compensatory Strategies and Precautions to be Taken for Safe Swallow: Sitting Upright (90 deg) Liquids from Cup Liquids from Straw Small Bites and Sips Supervision While Eating and Drinking for Safe Swallow: Intermittent Supervision Foods to Avoid: Swallowing Recommended Treatments: Recommendation for Speech: Outpatient Speech Therapy Inpatient Speech Therapy Comment: Pt was awake, alert, sitting in chair beside bed this morning, with Daughter and MD present in room at onset of re-assessment. Per daughter and MD, patient had been given pain medication yesterday that had made her extremely lethargic and had altered mental status as a result. DIRECTOR DERMATOLOGY had seen patient for clinical swallow when patient was in this state, had attempted swallow eval, patient had coughed on presentation of liquid. Pt was made NPO. Daughter stated that given her physical state yesterday, she wasn't appropriate for any consumption of food or liquid. However this morning patient is more herself and daughter reports that she has had no history of swallow difficulty. Patient reports that she has a dental appliance for her top front teeth and has lost a couple of molars to grinding, but stated that she likes food that she can chew and that her favorite foods are salty and crunchy, like potato chips. Pt was given tsp amount of water, followed by cup sips self administered. On thin liquids, patient presented with all phases of swallow WFL, no clinical signs of aspiration. Patient was took self administered tsps of puree, with all phases of swallow WFL, no clinical signs of aspiration. Patient took self administered tsp of mike cracker softened in pudding, produced a rotary chew, timely period of mastication followed by swallow WFL. Patient then took bites of dry mike cracker with timely oral phase, timely swallow, no clinical signs of aspiration. Patient requested the rest of the mike crackers to eat. Recommend UPGRADE to REGULAR diet with THIN liquids, pills WHOLE with Liquid, or as preferred by patient. MD notified in person and in joint text to RD. Nursing notified in person. DIRECTOR DERMATOLOGY will f/u X1 for toleration of diet. Frequency/Duration: Date Range for Service Req: Timeline to reassess: Patient Care Provider Clinican/Clinical Fellow: No Supervisory Statement: I have reviewed and agree with the student/clinical fellow's documentation: N/A Speech Language Pathologist: Sirisha Onofre M.A., CCC-DIRECTOR DERMATOLOGY
--- NOTE | 2022-02-24 10:41 | P.PNNP_ITS ---
Subjective Subjective Date of Service: 03/08/22 Interval history: Events noted. Hemoglobin has dropped. Lasix was discontinued and currently she is on Ringer's lactate. Physical Exam Vital Signs: Vital Signs: Last Vital Signs Temp 98.8 F 02/24/22 07:35 Pulse 76 02/24/22 08:27 Resp 20 02/24/22 08:23 BP 95/56 L 02/24/22 07:35 Pulse Ox 100 02/24/22 07:35 O2 Del Method 02/24/22 07:35 O2 Flow Rate 7 02/24/22 07:35 FiO2 98 02/23/22 19:11 BMI result Body Mass Index 27.5 Const: Other: General: alert, or iented to self, pl david, year neck no JVD Resp:? clear t o auscultation, no wheeze or rales a nd no accessory mu scle use CVS: S1,S 2,RRR GI:?? abdome n soft nontender, regular BS Skin: N o rash, stage 2 pr essure ulcer both buttock --see nurs ing for detail ext remities bilateral pitting edema bot h feet mild hypere jeb dorsum of righ t foot good pulses , cold extremities , unchanged from yesterday MSK: no tenderness on spin e Neuro:? motor gr ossly intact Psych : flat affect General: cooperative and no acute distress HEENT: Head: Yes normocephalic Face and sinus: Yes normal facial exam Mouth: Normal oral and palatal mucosa present Teeth and gingiva: dentition normal Eyes: General: appearance normal, both eyes and all related structures Pupils: Equal, round and reactive pupils present Resp: Effort & Inspection: normal respiratory effort Auscultation: clear to auscultation bilaterally Cardio: Jugular venous distension: no JVD Rate: regular rate Rhythm: regular rhythm Heart sounds: S1 normal heart sound present and S2 normal heart sound present GI: Palpation (GI): Soft to palpation and nontender Auscultation: normal bowel sounds : General: Yes no CVA tenderness Back/Spine/Pelvis: Back: no CVA tenderness Skin: General skin exam: no rashes or lesions noted Neuro: General: moves all extremities Cranial nerves: Yes Equal, round and reactive pupils present Extrem: General: Yes no clubbing, cyanosis or edema Psych: Other: somnolent Objective Data Labs CBC & Chem 7: 02/28/22 06:57 03/01/22 07:59 Labs: Laboratory Results - last 24 hr 02/23/22 02/23/22 02/23/22 07:23 11:10 11:10 WBC 14.7 H RBC 2.61 L Hgb 8.3 L Hct 25.7 L MCV 98.5 H MCH 31.8 MCHC 32.3 RDW 14.2 Plt Count 366 MPV 8.9 L Immature Gran % (Auto) 0.3 Neut % (Auto) 94.5 H Lymph % (Auto) 2.4 L [place] % (Auto) 2.6 Eos % (Auto) 0.1 Baso % (Auto) 0.1 Lymph # (Auto) 0.4 L [place] # (Auto) 0.4 Eos # (Auto) 0.0 Baso # (Auto) 0.0 Abs Immat Gran (auto) 0.05 H Absolute Neuts (auto) 13.9 H Absolute Nucleated RBC 0.000 Nucleated RBC % (auto) 0.0 Smear Tech's Comments VERIFIED O2 Saturation ABG pH at Pt Temp ABG pCO2 at Pt Temp ABG pO2 at Pt Temp ABG HCO3 ABG Base Excess (Actual) Sodium Potassium Chloride Carbon Dioxide Anion Gap BUN Creatinine Estim Creat Clear Calc Estimated GFR POC Glucose 77 Random Glucose Lactic Acid Calcium Magnesium Total Bilirubin Direct Bilirubin AST ALT Alkaline Phosphatase B-Natriuretic Peptide 228 H Total Protein Albumin Procalcitonin Nasal Screen MRSA (PCR) Nasal S. aureus Screen Nasal MRSA/S.aureus Interp 02/23/22 02/23/22 02/23/22 11:10 11:14 13:58 WBC RBC Hgb Hct MCV MCH MCHC RDW Plt Count MPV Immature Gran % (Auto) Neut % (Auto) Lymph % (Auto) [place] % (Auto) Eos % (Auto) Baso % (Auto) Lymph # (Auto) [place] # (Auto) Eos # (Auto) Baso # (Auto) Abs Immat Gran (auto) Absolute Neuts (auto) Absolute Nucleated RBC Nucleated RBC % (auto) Smear Tech's Comments O2 Saturation ABG pH at Pt Temp ABG pCO2 at Pt Temp ABG pO2 at Pt Temp ABG HCO3 ABG Base Excess (Actual) Sodium Potassium Chloride Carbon Dioxide Anion Gap BUN Creatinine Estim Creat Clear Calc Estimated GFR POC Glucose Random Glucose Lactic Acid Calcium Magnesium Total Bilirubin < 0.2 Direct Bilirubin < 0.2 AST 9 D ALT 8 Alkaline Phosphatase 74 B-Natriuretic Peptide Total Protein 5.2 L Albumin 2.8 L Procalcitonin 1.48 Nasal Screen MRSA (PCR) NEGATIVE Nasal S. aureus Screen POSITIVE A Nasal MRSA/S.aureus Interp SEE NOTE 02/23/22 02/23/22 02/23/22 16:23 16:57 17:00 WBC RBC Hgb Hct MCV MCH MCHC RDW Plt Count MPV Immature Gran % (Auto) Neut % (Auto) Lymph % (Auto) [place] % (Auto) Eos % (Auto) Baso % (Auto) Lymph # (Auto) [place] # (Auto) Eos # (Auto) Baso # (Auto) Abs Immat Gran (auto) Absolute Neuts (auto) Absolute Nucleated RBC Nucleated RBC % (auto) Smear Tech's Comments O2 Saturation 92.0 ABG pH at Pt Temp 7.39 ABG pCO2 at Pt Temp 33 ABG pO2 at Pt Temp 68 L ABG HCO3 20 L ABG Base Excess (Actual) -3.6 Sodium 137 Potassium 5.2 H Chloride 105 Carbon Dioxide 17 L Anion Gap 20 BUN 42 H Creatinine 2.17 H Estim Creat Clear Calc 17.2 Estimated GFR 22 POC Glucose 151 H Random Glucose 140 H Lactic Acid Calcium 7.6 L D Magnesium 1.6 Total Bilirubin Direct Bilirubin AST ALT Alkaline Phosphatase B-Natriuretic Peptide Total Protein Albumin Procalcitonin Nasal Screen MRSA (PCR) Nasal S. aureus Screen Nasal MRSA/S.aureus Interp 02/23/22 02/24/22 02/24/22 17:00 07:04 07:04 WBC 6.1 RBC 2.16 L Hgb 6.9 L* Hct 21.8 L MCV 100.9 H MCH 31.9 MCHC 31.7 RDW 14.3 Plt Count 261 D MPV 9.2 L Immature Gran % (Auto) Neut % (Auto) Lymph % (Auto) [place] % (Auto) Eos % (Auto) Baso % (Auto) Lymph # (Auto) [place] # (Auto) Eos # (Auto) Baso # (Auto) Abs Immat Gran (auto) Absolute Neuts (auto) Absolute Nucleated RBC 0.000 Nucleated RBC % (auto) 0.0 Smear Tech's Comments O2 Saturation ABG pH at Pt Temp ABG pCO2 at Pt Temp ABG pO2 at Pt Temp ABG HCO3 ABG Base Excess (Actual) Sodium 140 Potassium 4.5 Chloride 107 Carbon Dioxide 19 L Anion Gap 19 BUN 46 H Creatinine 2.12 H Estim Creat Clear Calc 17.6 Estimated GFR 22 POC Glucose Random Glucose 109 Lactic Acid 1.8 Calcium 7.9 L Magnesium Total Bilirubin Direct Bilirubin AST ALT Alkaline Phosphatase B-Natriuretic Peptide Total Protein Albumin Procalcitonin Nasal Screen MRSA (PCR) Nasal S. aureus Screen Nasal MRSA/S.aureus Interp Microbiology Microbiology Results: Microbiology 02/23/22 11:10 Blood - Venous Blood Culture - Preliminary Prelim: GNR Gram Stain only 02/01/22 21:06 Blood - Venous Blood Culture - Final No growth after 5 days. 02/01/22 19:26 Blood - Venous Blood Culture - Final No growth after 5 days. 02/02/22 00:00 Urine Catheterized - Straight Catheter Urine Culture - Final Procedures Date of Service Date of Service: 02/24/22 Assessment & Plan Assessment and plan (1) JNOES (acute kidney injury): Status: Acute Assessment and Plan: 1. JONES: hemodynamic JONES in the setting of diarrhea and poor PO intake. 2. CKD stage IIIa BL Cr probably 1.4mg/dL 3. [place] acidosis 2/2 CKD and Diarrhea 4. Seen via anemia Plan: - c/w PO bicarb - watch tCO2 ( @23) Agree with holding Lasix. Continue IV hydration and maintain systolic blood pressure more than 100mmHG Watch creatinine/electrolytes. - imodium prn for diarrhea (2) Chronic kidney disease: Status: Acute Time Spent With Patient Time: Total time spent is greater than 50% in coordination of care (as documented) at patient's floor/unit and/or counseling patient: Progress Note: Quality Stroke Does the patient have a stroke diagnosis?: No
[2022-02-24] MEDS: Mineral Oil/Petrolatum,White 106 GM Tube 1 APPL TOPICAL ×2 (10:50→19:59)
[2022-02-24 13:11] LABS: Hematocrit 22.4 % (37.0-47.0); Hemoglobin 7.1 g/dl (12.0-16.0); Mean Corpuscular HGB Conc 31.7 g/dl (31.0-35.0); Mean Corpuscular Hemoglobin 31.4 pg (27.0-33.0); Mean Corpuscular Volume 99.1 fL (80.0-98.0); Mean Platelet Volume 9.1 fL (9.4-12.3); Platelet Count 250 X10*3/uL (160-400); Red Blood Count 2.26 X10*6/uL (4.20-5.50); Red Cell Distribution Width 14.6 % (11.0-16.0); White Blood Count 6.3 X10*3/uL (4.8-10.8)
--- NOTE | 2022-02-24 14:51 | HO.PM.IMPN ---
Subjective Subjective Date of Service: 02/24/22 Interval History: Events from yesterday noted, this morning patient awake alert offers no acute complaints denies headache, dizziness, no nausea no vomiting no abdominal pain, no diarrhea, daughter at bedside feels her confusion tachycardia likely related to use of oxycodone since she is intolerant of opiates and oxycodone,, patient had no recurrent fevers overnight, WBC normalized, blood pressure is soft but stable. Review of Systems CVS no chest pain no palpitation GI no nausea no vomiting no diarrhea General no fevers, no chills complaining of generalized weakness, feels hungry Review of Systems: Yes all other systems are reviewed and are negative Physical Exam Vital Signs: Vital Signs: Last Vital Signs Temp 97.7 F 02/24/22 13:46 Pulse 60 02/24/22 13:46 Resp 20 02/24/22 13:46 BP 101/52 L 02/24/22 13:46 Pulse Ox 98 02/24/22 13:46 O2 Del Method 02/24/22 13:46 O2 Flow Rate 3 02/24/22 13:46 FiO2 98 02/23/22 19:11 BMI result Body Mass Index 27.5 Const: Other: General: alert, oriented x3 , no acute distress neck no JVD Resp:? clear to auscultation, few bibasilar crackles and no accessory muscle use CVS: S1,S2,RRR GI:?? abdomen soft nontender, normal BS Skin: No rash, stage 2 pressure ulcer both buttock extremities no pitting edema, mild hyperemia dorsum of right foot good pulses, cold extremities MSK: no tenderness on spine Neuro:? motor grossly intact Psych: Normal affect Objective Data Active Medications Acetaminophen (Acetaminophen Supp 650 Mg Supp.Rect) 650 mg CO Q6H PRN PRN Reason: Pain, Mild (Pain Scale 1-3) Acetaminophen (Acetaminophen 325 Mg Tablet) 650 mg PO Q6H PRN PRN Reason: Pain, Mild (Pain Scale 1-3) Last Admin: 02/23/22 13:04 Dose: 650 mg Documented By: KARO Albuterol Sulfate (Albuterol Sulfate (0.083%) 2.5 Mg/3 Ml Vial.Neb) 2.5 mg INHALE Q2H PRN PRN Reason: Shortness of Breath/Wheezing Albuterol/Ipratropium (Albuterol/Iprat 2.5/0.5mg 3 Ml Ampul.Neb) 3 ml INHALE RQ4H WHILE AWAKE [facility] Last Admin: 02/24/22 11:19 Dose: 3 ml Documented By: MARISA Bisacodyl (Bisacodyl 10 Mg Supp.Rect) 10 mg CO DAILY PRN PRN Reason: Constipation Piperacillin Sod/Tazobactam (Sod 2.25 gm/ Sodium Chloride) 50 mls @ 100 mls/hr IV Q6H [facility] Last Infusion: 02/24/22 10:40 Dose: 0 mls/hr Documented By: MARK Vancomycin HCl 500 mg/ Sodium (Chloride) 110 mls @ 110 mls/hr IV Q24H [facility] Lidocaine (Lidocaine 4 % Patch Adh..Patch) 1 patch TRANSDERMA DAILY [facility]; Protocol Last Admin: 02/24/22 10:00 Dose: 1 patch Documented By: MARK Loperamide HCl (Loperamide Hcl 2 Mg Capsule) 2 mg PO Q4H PRN PRN Reason: Diarrhea Last Admin: 02/20/22 20:56 Dose: 2 mg Documented By: SHRAVAN Magnesium Oxide (Magnesium Oxide 400 Mg Tablet) 400 mg PO BIDPC [facility] Last Admin: 02/23/22 07:49 Dose: 400 mg Documented By: KARO Multi-Ingred Cream/Lotion/Oil/Oint (Mineral Oil/Petrolatum,White 106 Gm Tube) 1 appl TOPICAL BID [facility]; Protocol Last Admin: 02/24/22 10:50 Dose: 1 appl Documented By: MARK Ondansetron HCl (Ondansetron Hcl 4 Mg/2 Ml Vial) 4 mg IVPUSH Q8H PRN PRN Reason: Nausea and Vomiting Last Admin: 02/18/22 05:11 Dose: 4 mg Documented By: ELANAUMOC Sertraline HCl (Sertraline Hcl 100 Mg Tablet) 100 mg PO DAILY [facility] Last Admin: 02/23/22 07:49 Dose: 100 mg Documented By: KARO Simethicone (Simethicone 80 Mg Tab.Chew) 80 mg PO BID PRN PRN Reason: Gas Last Admin: 02/19/22 10:54 Dose: 80 mg Documented By: HO.CHARTN Sodium Bicarbonate (Sodium Bicarbonate 650 Mg Tablet) 650 mg PO BID [facility] Last Admin: 02/23/22 07:49 Dose: 650 mg Documented By: KARO Sodium Chloride (0.9 % Sodium Chloride Flush 3 Ml Syringe) 3 ml IVFLUSH QSHIFT [facility] Last Admin: 02/24/22 10:01 Dose: 3 ml Documented By: MARK Zinc Acetate/Diphenhydramine (Diphenhydramine Hcl 2 % Cream 28 Gm Tube) 1 appl TOPICAL QID PRN; Protocol PRN Reason: Itching Labs CBC & Chem 7: 02/24/22 13:06 02/24/22 07:04 Labs: Laboratory Results - last 24 hr 02/23/22 02/23/22 02/23/22 13:58 16:23 16:57 MCV MCH MCHC RDW Plt Count MPV Absolute Nucleated RBC Nucleated RBC % (auto) O2 Saturation 92.0 ABG pH at Pt Temp 7.39 ABG pCO2 at Pt Temp 33 ABG pO2 at Pt Temp 68 L ABG HCO3 20 L ABG Base Excess (Actual) -3.6 Anion Gap Estim Creat Clear Calc Estimated GFR POC Glucose 151 H Random Glucose Lactic Acid Calcium Magnesium Nasal Screen MRSA (PCR) NEGATIVE Nasal S. aureus Screen POSITIVE A Nasal MRSA/S.aureus Interp SEE NOTE 02/23/22 02/23/22 02/24/22 17:00 17:00 07:04 MCV MCH MCHC RDW Plt Count MPV Absolute Nucleated RBC Nucleated RBC % (auto) O2 Saturation ABG pH at Pt Temp ABG pCO2 at Pt Temp ABG pO2 at Pt Temp ABG HCO3 ABG Base Excess (Actual) Anion Gap 20 19 Estim Creat Clear Calc 17.2 17.6 Estimated GFR 22 22 POC Glucose Random Glucose 140 H 109 Lactic Acid 1.8 Calcium 7.6 L D 7.9 L Magnesium 1.6 Nasal Screen MRSA (PCR) Nasal S. aureus Screen Nasal MRSA/S.aureus Interp 02/24/22 02/24/22 07:04 13:06 MCV 100.9 H 99.1 H MCH 31.9 31.4 MCHC 31.7 31.7 RDW 14.3 14.6 Plt Count 261 D 250 MPV 9.2 L 9.1 L Absolute Nucleated RBC 0.000 0.000 Nucleated RBC % (auto) 0.0 0.0 O2 Saturation ABG pH at Pt Temp ABG pCO2 at Pt Temp ABG pO2 at Pt Temp ABG HCO3 ABG Base Excess (Actual) Anion Gap Estim Creat Clear Calc Estimated GFR POC Glucose Random Glucose Lactic Acid Calcium Magnesium Nasal Screen MRSA (PCR) Nasal S. aureus Screen Nasal MRSA/S.aureus Interp Microbiology Microbiology Results: Microbiology 02/23/22 11:10 Blood Culture - Preliminary Blood - Venous Prelim: GNR Gram Stain only Assessment and Plan (1) JONES (acute kidney injury): Status: Acute (2) Respiratory failure: Status: Acute Plan 81yo F with unspecified mononeuropathy of BLE, CKD, spinal stenosis admitted for high-grade SBO 02/01/22, s/p ex-lap/TESHA 02/03 after which she remained intubated in the ICU; extubated 02/04 then transferred to the medical service where she had a prolonged course complicated by N/V, malnutrition, and electrolyte abnormalities due to postop ileus was preparing for discharge to [facility] 02/23 but then developed tachycardia/tachypnea/leukocytosis, elevated PCT; found to have PNA # sepsis due to PNA, hospital-acquired noted to have tachypnea tachycardia and leukocytosis now resolved - BCx growing Gram-negative jus , continue IV Zosyn and IV vancomycin for positive MRSA nares , not hypoxic, procalcitonin 1.48, Covid-19 JARRED negative 02/22. - Seen by speech therapy they recommend regular diet thin liquids # acute toxic metabolic encephalopathy Likely due to hypoxia, acute renal injury and pneumonia, resolved continue IV antibiotics. # acute on chronic macrocytic anemia Noted to have significant drop in hematocrit multifactorial likely dilutional, due to acute infection poor by mouth intake repeat hematocrit remains low will transfuse 1 unit of packed RBC, follow CBC B12 + folate normal # SBO, postop ileus, resolving - ex-lap TESHA 02/03, postop went to ICU intubated - extubated 02/04, transferred to floor - NGT out 02/07 then started on liquid diet, complicated by N/V/D - AXR 02/10 + 10 with no obstruction; possible postop ileus - CT A/P 02/11 no abscess, no SBO; possible ileus - Cdiff 02/09 + 02/12 negative - WBC count normalized - per GI impression also was of postop ileus; SBFT showed prominent SB loops and delayed transit of oral contrast - diet placed back on regular diet - cristo out 02/22 - per discussion with pt, daughter, and Gen Surg, will defer management of hiatal hernia to outpatient setting # JONES on CKD3 # metabolic acidosis - SCr peaked at 2.44 on 02/05, creatinine?normalized to 1.2 but rising likely due to vomiting + diarrhea- now 2.1, continue to hold Lasix, continue PO bicarbonate. Being followed by Nephrology ? 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; per pt and family, no known hx of COPD - # UTI - completed ceftriaxone # hypoK - repleted # leukocytosis - resolved # neuropathy # chronic back pain - resumed pregabalin # mod pr/elise malnutrition - Ensure # st 2 pressure ulcers bilateral buttocks - air loss mattress, barrier cream, position changes # VTE ppx: UFH In my clinical judgment, the patient requires continued hospitalization for the following reasons: PNA Quality Stroke Does the patient have a stroke diagnosis?: No VTE Prior VTE?: No VTE Risk Level:: Medical - moderate - high VTE Device Contraindication: N/A - Device Ordered VTE Drug Contraindication: Treatment Not Indicated
[2022-02-24] MEDS: Melatonin 3 MG TABLET 6 MG PO (22:49)
[2022-02-24] MEDS: vancomycin HCL 500 MG in 0.9 % Sodium Chloride 100 ML 110 MG IV (22:50)
[2022-02-25] VITALS (12 sets, daily range): BP systolic 91–114; BP diastolic 54–64; PULSE 81–105; RESP 16–20; TEMP 36.6–37.1; O2SAT 87–100
[2022-02-25] MEDS: Piperacillin Sodium/Tazobactam 2.25 GM in 0.9 % Sodium Chloride 50 ML IV ×4 (02:42→19:51)
--- NOTE | 2022-02-25 06:59 | HE.PHANOTE ---
re vanco Dose was given about 6 hours late yesterday. Retimed todays dose for 2199 and todays random level for 1999. We are still waiting on SCr. Gopi
[2022-02-25] MEDS: 0.9 % Sodium Chloride Flush 3 ML SYRINGE IVFLUSH ×2 (08:30→15:11)
[2022-02-25] MEDS: Lidocaine 4 % Patch ADH..PATCH 1 PATCH TRANSDERMA (08:30)
[2022-02-25 09:22] LABS: Hematocrit 26.7 % (37.0-47.0); Hemoglobin 8.6 g/dl (12.0-16.0); Mean Corpuscular HGB Conc 32.2 g/dl (31.0-35.0); Mean Corpuscular Hemoglobin 31.7 pg (27.0-33.0); Mean Corpuscular Volume 98.5 fL (80.0-98.0); Mean Platelet Volume 9.1 fL (9.4-12.3); Platelet Count 287 X10*3/uL (160-400); Red Blood Count 2.71 X10*6/uL (4.20-5.50); Red Cell Distribution Width 14.7 % (11.0-16.0); White Blood Count 7.4 X10*3/uL (4.8-10.8)
--- NOTE | 2022-02-25 09:51 | MHC.SL.SWA ---
Speech Pathologist Impression: WFL Risk of Aspiration Due to: Hx of Recent Extubation Reduced Cognition Dysphasia Diet Status: No Change Liquid Consistency and Strategies for Safe Swallow: Liquid Intake Recommendation: Thin Liquid Intake Strategies: Unrestricted Solid Food Consistency: Dietary Recommendations: Regular Additional Modifications to Solid Foods: Assure that tray is set up well and patient can access all foods and liquids (e.g. may need containers opened, check that patient is able to cut up solid foods independently). Oral Medication Intake: Whole with Liquid Please contact the pharmacy regarding appropriate crushable or liquid drug formulations that are available whenever modified delivery is recommended. Compensatory Strategies and Precautions to be Taken for Safe Swallow: Sitting Upright (90 deg) Liquids from Cup Liquids from Straw Small Bites and Sips Alternate Liquids/Solids Supervision While Eating and Drinking for Safe Swallow: Intermittent Supervision Swallowing Recommended Treatments: Recommendation for Speech: D/C Spray Mixer Clinican/Clinical Fellow: Yes: Mini Rockwell Supervisory Statement: I have reviewed and agree with the student/clinical fellow's documentation: N/A Speech Language Pathologist: Violeta Ga M.A., CCC-MOLDED PARTS INSPECTOR
[2022-02-25 10:03] LABS: Anion Gap 15 (12-20); Blood Urea Nitrogen 46 mg/dL (9-16); Calcium 8.5 mg/dL (8.4-10.2); Carbon Dioxide 24 mmol/L (22-29); Chloride 107 mmol/L (96-108); Creatinine Clr Calc Pharmacy 18.6; Estimated Glomerular Filt Rate 24; Glucose Random 104 mg/dL (60-115); Potassium 4.1 mmol/L (3.3-5.1); Sodium 142 mmol/L (135-145)
[2022-02-25 10:22] LABS: Procalcitonin 5.25 ng/mL
[2022-02-25] MEDS: Famotidine 20 MG TABLET PO (11:15)
--- NOTE | 2022-02-25 11:21 | MHC.CM.PN ---
Per ROUNDS discussion, Patient has Gram (-) Bacteremia/PNA and is not yet medically cleared for dc. STR at [facility] is the goal and CM will continue to follow.
--- NOTE | 2022-02-25 12:30 | MHC.CLN ---
F/U INTAKE APPEARS GOOD 75%. DIET RX: REGULAR-APPROPRIATE PT RECEIVING ENSURE PLUS HIGH PROTEIN TID PROVIDES ADDITIONAL 1050 KCALS, 60 G PROTEIN PER FAMILY REQUEST PATIENT WITH STAGE II TO BUTTOCKS. SUPPLEMENT APPROPRIATE TO PROMOTE WOUND HEALING FOLLOW FOR DIET TOLERANCE, INTAKE, AND WOUND HEALING
--- NOTE | 2022-02-25 13:31 | PM.PNNEP ---
Subjective Subjective Date of Service: 02/25/22 Interval history: seen and examined no complaints Physical Exam Vital Signs: Vital Signs: Last Vital Signs Temp 97.9 F 02/25/22 11:26 Pulse 84 02/25/22 11:26 Resp 20 02/25/22 11:26 BP 98/54 L 02/25/22 13:27 Pulse Ox 96 02/25/22 11:26 O2 Del Method 02/25/22 11:26 O2 Flow Rate 3.5 02/25/22 11:26 FiO2 98 02/23/22 19:11 BMI result Body Mass Index 27.5 Const: General: no acute distress HEENT: Head: Yes normocephalic and Yes atraumatic Neck: Neck: Yes supple Resp: Auscultation: diminished lung sounds Cardio: Heart sounds: S1 normal heart sound present and S2 normal heart sound present GI: Palpation (GI): Soft to palpation and nontender Extrem: General: No edema Objective Data Labs CBC & Chem 7: 02/25/22 09:10 02/25/22 09:10 Labs: Laboratory Results - last 24 hr 02/24/22 02/25/22 02/25/22 15:09 09:10 09:10 WBC RBC Hgb Hct MCV MCH MCHC RDW Plt Count MPV Absolute Nucleated RBC Nucleated RBC % (auto) Sodium 142 Potassium 4.1 Chloride 107 Carbon Dioxide 24 Anion Gap 15 BUN 46 H Creatinine 2.01 H Estim Creat Clear Calc 18.6 Estimated GFR 24 Random Glucose 104 Calcium 8.5 D Procalcitonin 5.25 Blood Type A Positive Antibody Screen NEGATIVE Crossmatch See Detail 02/25/22 09:10 WBC 7.4 RBC 2.71 L Hgb 8.6 L D Hct 26.7 L MCV 98.5 H MCH 31.7 MCHC 32.2 RDW 14.7 Plt Count 287 MPV 9.1 L Absolute Nucleated RBC 0.000 Nucleated RBC % (auto) 0.0 Sodium Potassium Chloride Carbon Dioxide Anion Gap BUN Creatinine Estim Creat Clear Calc Estimated GFR Random Glucose Calcium Procalcitonin Blood Type Antibody Screen Crossmatch Microbiology Microbiology Results: Microbiology 02/23/22 11:10 Blood - Venous Blood Culture - Preliminary Gram negative jus 02/01/22 21:06 Blood - Venous Blood Culture - Final No growth after 5 days. 02/01/22 19:26 Blood - Venous Blood Culture - Final No growth after 5 days. 02/02/22 00:00 Urine Catheterized - Straight Catheter Urine Culture - Final Procedures Date of Service Date of Service: 02/25/22 Assessment & Plan Assessment and plan (1) JONES (acute kidney injury): Status: Acute (2) CKD (chronic kidney disease) stage 3, GFR 30-59 ml/min: Status: Acute Plan JONES due to acute tubular injury known CKD baseline Scr ~ 1.4 mg/dl REC hold diuretics follow kidney function and electrolytes Time Spent With Patient Time: Total time spent is greater than 50% in coordination of care (as documented) at patient's floor/unit and/or counseling patient: Progress Note: Quality Stroke Does the patient have a stroke diagnosis?: No
[2022-02-25] MEDS: Acetaminophen 325 MG TABLET 650 MG PO ×2 (15:10→19:50)
--- NOTE | 2022-02-25 15:20 | HO.PM.IMPN ---
Subjective Subjective Date of Service: 02/25/22 Interval History: Feeling better, bringing up phlegm less shortness of breath and cough no recurrent fevers, had loose bowel movement yesterday evening, denies nausea vomiting abdominal pain tolerating diet no acute issues overnight, noted to have soft blood pressures. Review of Systems [employer] no headache no dizziness CVS no chest pain, no palpitation Musculoskeletal no pain General no fevers no chills generalized weakness Review of Systems: Yes all other systems are reviewed and are negative Physical Exam Vital Signs: Vital Signs: Last Vital Signs Temp 97.9 F 02/25/22 11:26 Pulse 84 02/25/22 11:26 Resp 20 02/25/22 11:26 BP 98/54 L 02/25/22 13:27 Pulse Ox 96 02/25/22 11:26 O2 Del Method 02/25/22 11:26 O2 Flow Rate 3.5 02/25/22 11:26 FiO2 98 02/23/22 19:11 BMI result Body Mass Index 27.5 Const: Other: General: alert, oriented x3 , no acute distress neck no JVD Resp:? clear to auscultation, few bibasilar crackles and no accessory muscle use CVS: S1,S2,RRR GI:?? abdomen soft nontender, normal BS Skin: No rash, stage 2 pressure ulcer both buttock extremities no pitting edema, mild hyperemia dorsum of right foot good pulses, cold extremities MSK: no tenderness on spine Neuro:? motor grossly intact Psych:? Normal affect Objective Data Active Medications Acetaminophen (Acetaminophen Supp 650 Mg Supp.Rect) 650 mg [place] Q6H PRN PRN Reason: Pain, Mild (Pain Scale 1-3) Acetaminophen (Acetaminophen 325 Mg Tablet) 650 mg PO Q6H PRN PRN Reason: Pain, Mild (Pain Scale 1-3) Last Admin: 02/25/22 15:10 Dose: 650 mg Documented By: KIMBERLY Albuterol Sulfate (Albuterol Sulfate (0.083%) 2.5 Mg/3 Ml Vial.Neb) 2.5 mg INHALE Q2H PRN PRN Reason: Shortness of Breath/Wheezing Albuterol/Ipratropium (Albuterol/Iprat 2.5/0.5mg 3 Ml Ampul.Neb) 3 ml INHALE RQ4H WHILE AWAKE [facility] Last Admin: 02/25/22 13:04 Dose: Not Given Documented By: YESY Non-Admin Reason: Patient Refused Bisacodyl (Bisacodyl 10 Mg Supp.Rect) 10 mg [place] DAILY PRN PRN Reason: Constipation Piperacillin Sod/Tazobactam (Sod 2.25 gm/ Sodium Chloride) 50 mls @ 100 mls/hr IV Q6H [facility] Last Admin: 02/25/22 15:10 Dose: 100 mls/hr Documented By: KIMBERLY Lidocaine (Lidocaine 4 % Patch Adh..Patch) 1 patch TRANSDERMA DAILY [facility]; Protocol Last Admin: 02/25/22 08:30 Dose: 1 patch Documented By: KIMBERLY Loperamide HCl (Loperamide Hcl 2 Mg Capsule) 2 mg PO Q4H PRN PRN Reason: Diarrhea Last Admin: 02/20/22 20:56 Dose: 2 mg Documented By: FOSTEKMaykel Melatonin (Melatonin 3 Mg Tablet) 6 mg PO BEDTIME PRN PRN Reason: sleep Last Admin: 02/24/22 22:49 Dose: 6 mg Documented By: ANTOIC Multi-Ingred Cream/Lotion/Oil/Oint (Mineral Oil/Petrolatum,White 106 Gm Tube) 1 appl TOPICAL BID [facility]; Protocol Last Admin: 02/25/22 14:07 Dose: Not Given Documented By: KIMBERLY Non-Admin Reason: Patient Refused Ondansetron HCl (Ondansetron Hcl 4 Mg/2 Ml Vial) 4 mg IVPUSH Q8H PRN PRN Reason: Nausea and Vomiting Last Admin: 02/18/22 05:11 Dose: 4 mg Documented By: NAHOMI Sertraline HCl (Sertraline Hcl 100 Mg Tablet) 100 mg PO DAILY [facility] Last Admin: 02/23/22 07:49 Dose: 100 mg Documented By: KARO Simethicone (Simethicone 80 Mg Tab.Chew) 80 mg PO BID PRN PRN Reason: Gas Last Admin: 02/19/22 10:54 Dose: 80 mg Documented By: NORMA Sodium Bicarbonate (Sodium Bicarbonate 650 Mg Tablet) 650 mg PO BID [facility] Last Admin: 02/23/22 07:49 Dose: 650 mg Documented By: KARO Sodium Chloride (0.9 % Sodium Chloride Flush 3 Ml Syringe) 3 ml IVFLUSH QSHIFT [facility] Last Admin: 02/25/22 15:11 Dose: 3 ml Documented By: KIMBERLY Zinc Acetate/Diphenhydramine (Diphenhydramine Hcl 2 % Cream 28 Gm Tube) 1 appl TOPICAL QID PRN; Protocol PRN Reason: Itching Labs CBC & Chem 7: 02/25/22 09:10 02/25/22 09:10 Labs: Laboratory Results - last 24 hr 02/24/22 02/25/22 02/25/22 15:09 09:10 09:10 MCV MCH MCHC RDW Plt Count MPV Absolute Nucleated RBC Nucleated RBC % (auto) Anion Gap 15 Estim Creat Clear Calc 18.6 Estimated GFR 24 Random Glucose 104 Calcium 8.5 D Procalcitonin 5.25 Blood Type A Positive Antibody Screen NEGATIVE Crossmatch See Detail 02/25/22 09:10 MCV 98.5 H MCH 31.7 MCHC 32.2 RDW 14.7 Plt Count 287 MPV 9.1 L Absolute Nucleated RBC 0.000 Nucleated RBC % (auto) 0.0 Anion Gap Estim Creat Clear Calc Estimated GFR Random Glucose Calcium Procalcitonin Blood Type Antibody Screen Crossmatch Microbiology Microbiology Results: Microbiology 02/23/22 11:10 Blood Culture - Preliminary Blood - Venous Gram negative jus Assessment and Plan (1) JONES (acute kidney injury): Status: Acute (2) Respiratory failure: Status: Acute Plan 81yo F with unspecified mononeuropathy of BLE, CKD, spinal stenosis admitted for high-grade SBO 02/01/22, s/p ex-lap/TESHA 02/03 after which she remained intubated in the ICU; extubated 02/04 then transferred to the medical service where she had a prolonged course complicated by N/V, malnutrition, and electrolyte abnormalities due to postop ileus was preparing for discharge to [facility] 02/23 but then developed tachycardia/tachypnea/leukocytosis, elevated PCT; found to have PNA # sepsis due to PNA, hospital-acquired noted to have tachypnea tachycardia and leukocytosis now resolved - BCx growing Gram-negative jus question source of infection CT abdomen showed increasing atelectasis or small infiltrate at left lung base, dense consolidation with air bronchograms right middle and right lower lobes and elevation of right hemidiaphragm unchanged from before, no evidence of diverticulitis fluid-filled lobes of small and proximal large bowel probably representing ileus noted, no enteritis, colitis or diverticulitis., UA not collected , on IV Zosyn day 3, iv vanco stopped after 2 dose positive MRSA nares , procalcitonin 1.48, Covid-19 JARRED negative 02/22. Case discussed with ID she recommend to continue IV Zosyn and to give doxycycline 100 mg b.i.d. x1 week to cover MRSA will follow final blood culture report. Will strongly encouraged to use incentive spirometry, cough medication # acute toxic metabolic encephalopathy Likely due to hypoxia, acute renal injury and pneumonia, resolved ,continue IV antibiotics. # acute on chronic macrocytic anemia Status post 1 unit of packed RBC on 02/24/22 hematocrit improved B12 + folate normal # SBO, postop ileus, resolving - ex-lap TESHA 02/03, postop went to ICU intubated - extubated 02/04, transferred to floor - NGT out 02/07 then started on liquid diet, complicated by N/V/D - AXR 02/10 + 02/13 with no obstruction; possible postop ileus - CT A/P 02/11 no abscess, no SBO; possible ileus - Cdiff 02/09 + 02/12 negative - WBC count normalized - per GI impression also was of postop ileus; SBFT showed prominent SB loops and delayed transit of oral contrast - diet placed back on regular diet - cristo out 02/22 - per discussion with pt, daughter, and Gen Surg, will defer management of hiatal hernia to outpatient setting # JONES on CKD3 # metabolic acidosis - SCr peaked at 2.44 on 02/05, creatinine?normalized to 1.2 but rising likely due to vomiting + diarrhea- now 2., continue to hold Lasix, continue PO bicarbonate. Being followed by Nephrology, encourage by mouth fluids ? 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; per pt and family, no known hx of COPD # UTI - completed ceftriaxone # hypoK - repleted # leukocytosis - resolved # neuropathy # chronic back pain - resumed pregabalin # mod pr/elise malnutrition - Ensure # st 2 pressure ulcers bilateral buttocks - air loss mattress, barrier cream, position changes # VTE ppx: UFH In my clinical judgment, the patient requires continued hospitalization for the following reasons: Gram-negative jus bacteremia on IV antibiotics Quality Stroke Does the patient have a stroke diagnosis?: No VTE Prior VTE?: No VTE Risk Level:: Medical - moderate - high VTE Device Contraindication: N/A - Device Ordered VTE Drug Contraindication: Treatment Not Indicated
[2022-02-25] MEDS: Albuterol/Iprat 2.5/0.5MG 3 ML AMPUL.NEB INHALE ×2 (16:00→19:00)
[2022-02-25] MEDS: Sertraline HCL 100 MG TABLET PO (19:51)
[2022-02-25] MEDS: Mineral Oil/Petrolatum,White 106 GM Tube 1 APPL TOPICAL (23:48)
[2022-02-26] VITALS (13 sets, daily range): BP systolic 102–137; BP diastolic 57–80; PULSE 73–121; RESP 15–20; TEMP 35.8–37.1; O2SAT 85–99
[2022-02-26] MEDS: diphenhydrAMINE HCL 25 MG CAPSULE PO (00:37)
[2022-02-26] MEDS: Piperacillin Sodium/Tazobactam 2.25 GM in 0.9 % Sodium Chloride 50 ML IV ×2 (01:55→09:15)
--- NOTE | 2022-02-26 07:19 | PC.NURSE ---
pt c/o pain in left lower leg she states she presed leg against the bed rain ice apolied pt didnt c/o of pain in am
[2022-02-26 07:34] LABS: Creatinine Clr Calc Pharmacy 21.5; Estimated Glomerular Filt Rate 28
[2022-02-26] MEDS: Albuterol/Iprat 2.5/0.5MG 3 ML AMPUL.NEB INHALE ×3 (08:14→15:12)
[2022-02-26] MEDS: Mineral Oil/Petrolatum,White 106 GM Tube 1 APPL TOPICAL ×2 (09:16→22:03)
[2022-02-26] MEDS: 0.9 % Sodium Chloride Flush 3 ML SYRINGE IVFLUSH ×3 (09:16→16:31)
[2022-02-26] MEDS: Lidocaine 4 % Patch ADH..PATCH 1 PATCH TRANSDERMA (09:16)
--- NOTE | 2022-02-26 11:08 | MHC.CM.PN ---
Per DR Dasilva and Dr Story patient is ready to discharge today. Called [facility] to notify of discharge today. Spoke with Employee Operations Examiner Michelle from [facility]. She stated that they do not usually accept admissions on weekends. She stated that she would need to contact the DON. T/W's contact info was provided. A call was received from the DON. She was able to reach the Liason. They will follow up on Monday as they have given the bed away. The family was notified that [facility] can not accept the pt today: but they will follow up on Monday, as planned. Hospitalist notified, no discharge transfer today.
--- NOTE | 2022-02-26 12:10 | HO.PM.IMPN ---
Subjective Subjective Date of Service: 02/26/22 Interval History: Patient awake alert feeling better had a good night sleep, denies abdominal pain, no nausea no vomiting, tolerating current diet, no recurrent diarrhea, no shortness of breath, finger oximetry 96% on 3 L Review of Systems [employer] no headache, no dizziness CVS no chest pain General no fevers, no chills Review of Systems: Yes all other systems are reviewed and are negative Physical Exam Vital Signs: Vital Signs: Last Vital Signs Temp 98.4 F 02/26/22 11:43 Pulse 79 02/26/22 11:44 Resp 20 02/26/22 11:44 BP 105/63 02/26/22 11:43 Pulse Ox 96 02/26/22 11:43 O2 Del Method 02/26/22 11:43 O2 Flow Rate 3.5 02/26/22 11:43 FiO2 98 02/23/22 19:11 BMI result Body Mass Index 27.5 Const: Other: General: alert, oriented x3 , no acute distress neck no JVD Resp:? clear to auscultation, few dry bibasilar crackles and no accessory muscle use CVS: S1,S2,RRR GI:?? abdomen soft nontender, normal BS Skin: No rash, stage 2 pressure ulcer both buttock extremities no pitting edema, mild hyperemia dorsum of right foot with bluish discoloration of toes, chronic as per patient, good pulses, cold extremities MSK: no tenderness on spine Neuro:? motor grossly intact Psych:? Normal affect Objective Data Active Medications Acetaminophen (Acetaminophen Supp 650 Mg Supp.Rect) 650 mg [place] Q6H PRN PRN Reason: Pain, Mild (Pain Scale 1-3) Acetaminophen (Acetaminophen 325 Mg Tablet) 650 mg PO Q6H PRN PRN Reason: Pain, Mild (Pain Scale 1-3) Last Admin: 02/25/22 15:10 Dose: 650 mg Documented By: KIMBERLY Acetaminophen (Acetaminophen 325 Mg Tablet) 650 mg PO DAILY@2029 [facility] Last Admin: 02/25/22 19:50 Dose: 650 mg Documented By: FIDENCIO Albuterol Sulfate (Albuterol Sulfate (0.083%) 2.5 Mg/3 Ml Vial.Neb) 2.5 mg INHALE Q2H PRN PRN Reason: Shortness of Breath/Wheezing Albuterol/Ipratropium (Albuterol/Iprat 2.5/0.5mg 3 Ml Ampul.Neb) 3 ml INHALE RQ4H WHILE AWAKE [facility] Last Admin: 02/26/22 11:42 Dose: 3 ml Documented By: MARISA Bisacodyl (Bisacodyl 10 Mg Supp.Rect) 10 mg [place] DAILY PRN PRN Reason: Constipation Doxycycline Hyclate (Doxycycline Hyclate 100 Mg Tablet) 100 mg PO Q12H [facility] Last Admin: 02/26/22 06:24 Dose: 100 mg Documented By: FIDENCIO Piperacillin Sod/Tazobactam (Sod 2.25 gm/ Sodium Chloride) 50 mls @ 100 mls/hr IV Q6H [facility] Last Infusion: 02/26/22 09:57 Dose: 0 mls/hr Documented By: SUSAN Lidocaine (Lidocaine 4 % Patch Adh..Patch) 1 patch TRANSDERMA DAILY [facility]; Protocol Last Admin: 02/26/22 09:16 Dose: 1 patch Documented By: SUSAN Loperamide HCl (Loperamide Hcl 2 Mg Capsule) 2 mg PO Q4H PRN PRN Reason: Diarrhea Last Admin: 02/20/22 20:56 Dose: 2 mg Documented By: FOSTEKMaykel Melatonin (Melatonin 3 Mg Tablet) 6 mg PO BEDTIME PRN PRN Reason: sleep Last Admin: 02/26/22 00:00 Dose: 6 mg Documented By: FIDENCIO Multi-Ingred Cream/Lotion/Oil/Oint (Mineral Oil/Petrolatum,White 106 Gm Tube) 1 appl TOPICAL BID [facility]; Protocol Last Admin: 02/26/22 09:16 Dose: 1 appl Documented By: SUSAN Ondansetron HCl (Ondansetron Hcl 4 Mg/2 Ml Vial) 4 mg IVPUSH Q8H PRN PRN Reason: Nausea and Vomiting Last Admin: 02/18/22 05:11 Dose: 4 mg Documented By: NAHOMI Sertraline HCl (Sertraline Hcl 100 Mg Tablet) 100 mg PO DAILY@2030 [facility] Last Admin: 02/25/22 19:51 Dose: 100 mg Documented By: FIDENCIO Simethicone (Simethicone 80 Mg Tab.Chew) 80 mg PO BID PRN PRN Reason: Gas Last Admin: 02/19/22 10:54 Dose: 80 mg Documented By: NORMA Sodium Bicarbonate (Sodium Bicarbonate 650 Mg Tablet) 650 mg PO BID [facility] Last Admin: 02/23/22 07:49 Dose: 650 mg Documented By: KARO Sodium Chloride (0.9 % Sodium Chloride Flush 3 Ml Syringe) 3 ml IVFLUSH QSHIFT [facility] Last Admin: 02/26/22 09:16 Dose: 3 ml Documented By: SUSAN Zinc Acetate/Diphenhydramine (Diphenhydramine Hcl 2 % Cream 28 Gm Tube) 1 appl TOPICAL QID PRN; Protocol PRN Reason: Itching Labs CBC & Chem 7: 02/25/22 09:10 02/26/22 06:57 Labs: Laboratory Results - last 24 hr 02/26/22 06:57 Estim Creat Clear Calc 21.5 Estimated GFR 28 Microbiology Microbiology Results: Microbiology 02/23/22 11:10 Blood Culture - Preliminary Blood - Venous Klebsiella oxytoca Assessment and Plan (1) JONES (acute kidney injury): Status: Acute (2) Respiratory failure: Status: Acute Plan 81yo F with unspecified mononeuropathy of BLE, CKD, spinal stenosis admitted for high-grade SBO 02/01/22, s/p ex-lap/TESHA 02/03 after which she remained intubated in the ICU; extubated 02/04 then transferred to the medical service where she had a prolonged course complicated by N/V, malnutrition, and electrolyte abnormalities due to postop ileus was preparing for discharge to [facility] 02/23 but then developed tachycardia/tachypnea/leukocytosis, elevated PCT; found to have PNA # sepsis due to PNA, hospital-acquired noted to have tachypnea, tachycardia and leukocytosis now resolved - BCx 1 bottle grew Klebsiella oxytoca (unofficial report ESBL positive sensitive to Levaquin Bactrim gentamicin and ertapenem) UA not collected, CT abdomen showing increasing atelectasis or small infiltrate at left lung base, dense consolidation with air bronchograms right middle and right lower lobes and elevation of right hemidiaphragm unchanged from before, no evidence of diverticulitis, fluid-filled loops of small and proximal large bowel probably representing ileus noted, no enteritis, colitis or diverticulitis., on IV Zosyn day 4,s/p iv vanco stopped after 2 dose positive MRSA nares , procalcitonin 1.48, Covid-19 JARRED negative 02/22. Case discussed with ID will treat with doxycycline 100 mg b.i.d. for total 1 weeks day06/21 Will DC IV Zosyn and place on IV Levaquin to cover Klebsiella Will strongly encouraged to use incentive spirometry, cough medication , out of bed to chair Caroline Alvarez cannot except patient today, will follow-up on Monday # acute toxic metabolic encephalopathy Resolved,was Likely due to hypoxia, acute renal injury and pneumonia, # acute on chronic macrocytic anemia Status post 1 unit of packed RBC on 02/24/22 hematocrit improved B12 + folate normal # SBO, postop ileus, resolving - ex-lap TESHA 02/03, postop went to ICU intubated - extubated 02/04, transferred to floor - NGT out 02/07 then started on liquid diet, complicated by N/V/D - AXR 02/10 + 02/13 with no obstruction; possible postop ileus - CT A/P 02/11 no abscess, no SBO; possible ileus - Cdiff 02/09 + 02/12 negative - WBC count normalized - per GI impression also was of postop ileus; SBFT showed prominent SB loops and delayed transit of oral contrast - diet placed back on regular diet - cristo out 02/22 - per discussion with pt, daughter, and Gen Surg, will defer management of hiatal hernia to outpatient setting # JONES on CKD3 # metabolic acidosis - SCr peaked at 2.44 on 02/05, creatinine?normalized to 1.2 but rising likely due to vomiting + diarrhea- now 1.7, continue to hold Lasix, dc PO bicarbonate, bicarb normalized. Being followed by Nephrology, encourage by mouth fluids ? 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; per pt and family, no known hx of COPD # UTI - completed ceftriaxone # hypoK - repleted # leukocytosis - resolved # neuropathy # chronic back pain - resumed pregabalin # mod pr/elise malnutrition - Ensure # st 2 pressure ulcers bilateral buttocks - air loss mattress, barrier cream, position changes # VTE ppx: UFH In my clinical judgment, the patient requires continued hospitalization for the following reasons: klebsiella bacteremia on IV antibiotics Quality Stroke Does the patient have a stroke diagnosis?: No VTE Prior VTE?: No VTE Risk Level:: Medical - moderate - high VTE Device Contraindication: N/A - Device Ordered VTE Drug Contraindication: Treatment Not Indicated
[2022-02-26] MEDS: levoFLOXacin/D5W 500 MG/100 ML PIGGYBACK 100 MG IV (12:50)
--- NOTE | 2022-02-26 14:06 | PM.PNNEP ---
Subjective Subjective Date of Service: 02/26/22 Interval history: seen and examined denies abdominal pain, no nausea no vomiting complains of poor appetite Physical Exam Vital Signs: Vital Signs: Last Vital Signs Temp 98.4 F 02/26/22 11:43 Pulse 79 02/26/22 11:44 Resp 20 02/26/22 11:44 BP 105/63 02/26/22 11:43 Pulse Ox 96 02/26/22 11:43 O2 Del Method 02/26/22 11:43 O2 Flow Rate 2 02/26/22 11:43 FiO2 98 02/23/22 19:11 BMI result Body Mass Index 27.5 Const: General: no acute distress HEENT: Head: Yes normocephalic and Yes atraumatic Neck: Neck: Yes supple Resp: Auscultation: diminished lung sounds Cardio: Heart sounds: S1 normal heart sound present and S2 normal heart sound present GI: Palpation (GI): Soft to palpation and nontender Extrem: General: No edema Objective Data Labs CBC & Chem 7: 02/25/22 09:10 02/26/22 06:57 Labs: Laboratory Results - last 24 hr 02/26/22 06:57 Creatinine 1.74 H Estim Creat Clear Calc 21.5 Estimated GFR 28 Microbiology Microbiology Results: Microbiology 02/23/22 11:10 Blood - Venous Blood Culture - Preliminary Klebsiella oxytoca 02/01/22 21:06 Blood - Venous Blood Culture - Final No growth after 5 days. 02/01/22 19:26 Blood - Venous Blood Culture - Final No growth after 5 days. 02/02/22 00:00 Urine Catheterized - Straight Catheter Urine Culture - Final Procedures Date of Service Date of Service: 02/26/22 Assessment & Plan Assessment and plan (1) JONES (acute kidney injury): Status: Acute (2) CKD (chronic kidney disease) stage 3, GFR 30-59 ml/min: Status: Acute Plan Scr better JONES due to acute tubular injury known CKD baseline Scr ~ 1.4 mg/dl REC continue to hold diuretics follow kidney function and electrolytes Time Spent With Patient Time: Total time spent is greater than 50% in coordination of care (as documented) at patient's floor/unit and/or counseling patient: Progress Note: Quality Stroke Does the patient have a stroke diagnosis?: No
[2022-02-26] MEDS: ondansetron HCL 4 MG/2 ML VIAL IVPUSH (20:36)
[2022-02-26] MEDS: Acetaminophen 325 MG TABLET 650 MG PO (21:56)
[2022-02-26] MEDS: Sertraline HCL 100 MG TABLET PO (21:57)
[2022-02-26] MEDS: Melatonin 3 MG TABLET 6 MG PO ×2 (21:57)
[2022-02-26] MEDS: diphenhydrAMINE HCl 2 % Cream 28 GM TUBE 1 APPL TOPICAL (22:02)
[2022-02-27] VITALS (8 sets, daily range): BP systolic 127–137; BP diastolic 63–82; PULSE 71–88; RESP 14–20; TEMP 36.3–37; O2SAT 86–100
--- NOTE | 2022-02-27 00:53 | PC.NURSE ---
patient found to be 85 on room air, appears to have been weaned from O2 during day. 2L reapplied.
[2022-02-27 07:34] LABS: Anion Gap 16 (12-20); Blood Urea Nitrogen 33 mg/dL (9-16); Calcium 8.8 mg/dL (8.4-10.2); Carbon Dioxide 24 mmol/L (22-29); Chloride 108 mmol/L (96-108); Creatinine Clr Calc Pharmacy 23.5; Estimated Glomerular Filt Rate 31; Glucose Random 91 mg/dL (60-115); Potassium 4.8 mmol/L (3.3-5.1); Sodium 143 mmol/L (135-145)
[2022-02-27] MEDS: 0.9 % Sodium Chloride Flush 3 ML SYRINGE IVFLUSH ×3 (08:28→21:26)
[2022-02-27] MEDS: Lidocaine 4 % Patch ADH..PATCH 1 PATCH TRANSDERMA (08:29)
[2022-02-27 08:52] LABS: Magnesium 1.3 mg/dL (1.6-2.6)
[2022-02-27] MEDS: Albuterol/Iprat 2.5/0.5MG 3 ML AMPUL.NEB INHALE ×2 (08:58→12:03)
[2022-02-27 09:39] LABS: Procalcitonin 1.72 ng/mL
[2022-02-27] MEDS: Magnesium Sulfate/H2O 2 GM/50 ML PIGGYBACK IV (09:57)
[2022-02-27] MEDS: diphenhydrAMINE HCl 2 % Cream 28 GM TUBE 1 APPL TOPICAL (09:57)
--- NOTE | 2022-02-27 10:52 | PM.PNNEP ---
Subjective Subjective Date of Service: 02/27/22 Interval history: seen and examined denies abdominal pain, no nausea no vomiting daughter at bedside updated Physical Exam Vital Signs: Vital Signs: Last Vital Signs Temp 97.3 F 02/27/22 08:00 Pulse 88 02/27/22 08:59 Resp 18 02/27/22 08:59 BP 137/82 02/27/22 08:00 Pulse Ox 94 02/27/22 08:00 O2 Del Method 02/27/22 08:00 O2 Flow Rate 2 02/27/22 08:00 FiO2 98 02/23/22 19:11 BMI result Body Mass Index 27.5 Const: General: no acute distress HEENT: Head: Yes normocephalic and Yes atraumatic Neck: Neck: Yes supple Resp: Auscultation: diminished lung sounds Cardio: Heart sounds: S1 normal heart sound present and S2 normal heart sound present GI: Palpation (GI): Soft to palpation and nontender Extrem: General: Yes edema Objective Data Labs CBC & Chem 7: 02/25/22 09:10 02/27/22 06:19 Labs: Laboratory Results - last 24 hr 02/27/22 02/27/22 06:19 06:19 Sodium 143 Potassium 4.8 Chloride 108 Carbon Dioxide 24 Anion Gap 16 BUN 33 H Creatinine 1.59 H Estim Creat Clear Calc 23.5 Estimated GFR 31 Random Glucose 91 Calcium 8.8 Magnesium 1.3 L* Procalcitonin 1.72 Microbiology Microbiology Results: Microbiology 02/23/22 11:10 Blood - Venous Blood Culture - Final Klebsiella oxytoca 02/01/22 21:06 Blood - Venous Blood Culture - Final No growth after 5 days. 02/01/22 19:26 Blood - Venous Blood Culture - Final No growth after 5 days. 02/02/22 00:00 Urine Catheterized - Straight Catheter Urine Culture - Final Procedures Date of Service Date of Service: 02/27/22 Assessment & Plan Assessment and plan (1) JONES (acute kidney injury): Status: Acute (2) CKD (chronic kidney disease) stage 3, GFR 30-59 ml/min: Status: Acute Plan kidney function now at baseline JONES due to acute tubular injury known CKD baseline Scr ~ 1.4 mg/dl REC resume diuretics (furosemide 20 mg daily) replace magnesium follow kidney function and electrolytes Time Spent With Patient Time: Total time spent is greater than 50% in coordination of care (as documented) at patient's floor/unit and/or counseling patient: Progress Note: Quality Stroke Does the patient have a stroke diagnosis?: No
--- NOTE | 2022-02-27 15:22 | HO.PM.IMPN ---
Subjective Subjective Date of Service: 02/27/22 Interval History: c/o insomnia cough improved, off O2 now doesn't like hospital food no diarrhea or abd pain Review of Systems Review of Systems: Yes all other systems are reviewed and are negative Physical Exam Vital Signs: Vital Signs: Last Vital Signs Temp 97.8 F 02/27/22 11:35 Pulse 86 02/27/22 12:03 Resp 16 02/27/22 11:35 BP 135/72 02/27/22 11:35 Pulse Ox 100 02/27/22 11:35 O2 Del Method 02/27/22 11:35 O2 Flow Rate 2 02/27/22 11:35 FiO2 98 02/23/22 19:11 BMI result Body Mass Index 27.5 General: alert, oriented x3 , no acute distress Neck: no JVD Resp:? clear to auscultation CVS: S1,S2,RRR GI:?? abdomen soft nontender, normal bowel sounds, midline incision scar well-healed Skin: No rash, stage 2 pressure ulcer both buttock Extremities: no pitting edema, mild hyperemia dorsum of right foot with bluish discoloration of toes, chronic as per patient, good pulses, cold extremities Neuro:? motor grossly intact Psych:? normal affect Objective Data Active Medications Acetaminophen (Acetaminophen Supp 650 Mg Supp.Rect) 650 mg CO Q6H PRN PRN Reason: Pain, Mild (Pain Scale 1-3) Acetaminophen (Acetaminophen 325 Mg Tablet) 650 mg PO Q6H PRN PRN Reason: Pain, Mild (Pain Scale 1-3) Last Admin: 02/25/22 15:10 Dose: 650 mg Documented By: KIMBERLY Acetaminophen (Acetaminophen 325 Mg Tablet) 650 mg PO DAILY@2030 [facility] Last Admin: 02/26/22 21:56 Dose: 650 mg Documented By: YON Albuterol Sulfate (Albuterol Sulfate (0.083%) 2.5 Mg/3 Ml Vial.Neb) 2.5 mg INHALE Q2H PRN PRN Reason: Shortness of Breath/Wheezing Albuterol/Ipratropium (Albuterol/Iprat 2.5/0.5mg 3 Ml Ampul.Neb) 3 ml INHALE RQ4H WHILE AWAKE [facility] Last Admin: 02/27/22 12:03 Dose: 3 ml Documented By: ISIAH Bisacodyl (Bisacodyl 10 Mg Supp.Rect) 10 mg CO DAILY PRN PRN Reason: Constipation Doxycycline Hyclate (Doxycycline Hyclate 100 Mg Tablet) 100 mg PO Q12H [facility] Last Admin: 02/27/22 08:28 Dose: 100 mg Documented By: KIMBERLY Levofloxacin (Levaquin) 500 mg in 100 mls @ 100 mls/hr IV Q48H [facility] Last Infusion: 02/26/22 14:39 Dose: 0 mls/hr Documented By: SUSAN Lidocaine (Lidocaine 4 % Patch Adh..Patch) 1 patch TRANSDERMA DAILY [facility]; Protocol Last Admin: 02/27/22 08:29 Dose: 1 patch Documented By: KIMBERLY Loperamide HCl (Loperamide Hcl 2 Mg Capsule) 2 mg PO Q4H PRN PRN Reason: Diarrhea Last Admin: 02/20/22 20:56 Dose: 2 mg Documented By: ISABELLATEKMaykel Melatonin (Melatonin 3 Mg Tablet) 6 mg PO BEDTIME PRN PRN Reason: sleep Last Admin: 02/26/22 21:57 Dose: 6 mg Documented By: YON Multi-Ingred Cream/Lotion/Oil/Oint (Mineral Oil/Petrolatum,White 106 Gm Tube) 1 appl TOPICAL BID [facility]; Protocol Last Admin: 02/27/22 11:59 Dose: Not Given Documented By: KIMBERLY Non-Admin Reason: Patient Refused Ondansetron HCl (Ondansetron Hcl 4 Mg/2 Ml Vial) 4 mg IVPUSH Q8H PRN PRN Reason: Nausea and Vomiting Last Admin: 02/26/22 20:36 Dose: 4 mg Documented By: YON Sertraline HCl (Sertraline Hcl 100 Mg Tablet) 100 mg PO DAILY@2030 [facility] Last Admin: 02/26/22 21:57 Dose: 100 mg Documented By: YON Comments: late d/t patient having nausea earlier Simethicone (Simethicone 80 Mg Tab.Chew) 80 mg PO BID PRN PRN Reason: Gas Last Admin: 02/19/22 10:54 Dose: 80 mg Documented By: NORMA Sodium Chloride (0.9 % Sodium Chloride Flush 3 Ml Syringe) 3 ml IVFLUSH QSHIFT [facility] Last Admin: 02/27/22 08:28 Dose: 3 ml Documented By: KIMBERLY Trazodone HCl (Trazodone Hcl 25 Mg Halftab) 25 mg PO BEDTIME [facility] Zinc Acetate/Diphenhydramine (Diphenhydramine Hcl 2 % Cream 28 Gm Tube) 1 appl TOPICAL QID PRN; Protocol PRN Reason: Itching Last Admin: 02/27/22 09:57 Dose: 1 appl Documented By: KIMBERLY Labs CBC & Chem 7: 02/25/22 09:10 02/27/22 06:19 Labs: Laboratory Results - last 24 hr 02/27/22 02/27/22 06:19 06:19 Anion Gap 16 Estim Creat Clear Calc 23.5 Estimated GFR 31 Random Glucose 91 Calcium 8.8 Magnesium 1.3 L* Procalcitonin 1.72 Microbiology Microbiology Results: Microbiology 02/23/22 11:10 Blood Culture - Final Blood - Venous Klebsiella oxytoca Assessment and Plan (1) JONES (acute kidney injury): Status: Acute (2) Respiratory failure: Status: Acute Plan d#27 81yo F with unspecified mononeuropathy of BLE, CKD, spinal stenosis admitted for high-grade SBO 02/01/22, s/p ex-lap/TESHA 02/03 after which she remained intubated in the ICU; extubated 02/04 then transferred to the medical service where she had a prolonged course complicated by N/V, malnutrition, and electrolyte abnormalities due to postop ileus was preparing for discharge to [facility] 02/23 but then developed tachycardia/tachypnea/leukocytosis, elevated PCT; found to have PNA + Klebsiella oxytoca ESBL bacteremia # sepsis due to PNA, hospital-acquired, and ESBL bacteremia - tachypnea, tachycardia and leukocytosis now resolved - BCx 1 bottle grew Klebsiella oxytoca (unofficial report ESBL positive sensitive to Levaquin Bactrim gentamicin and ertapenem) - got 4d of IV pip/jean + 1d of IV vancomycin for positive MRSA screen - per ID, doxycycline d#3/7, on levofloxacin d#2- discuss duration with ID - IS, OOB # hypoMg - replete, recheck in AM # acute toxic metabolic encephalopathy - resolved, was likely due to hypoxia, acute renal injury and sepsis # acute on chronic macrocytic anemia - status post 1 unit of packed RBC on 02/24/22; H+H improved; B12 + folate normal # SBO, postop ileus, resolving - ex-lap TESHA 02/03, postop went to ICU intubated - extubated 02/04, transferred to floor - NGT out 02/07 then started on liquid diet, complicated by N/V/D - AXR 02/10 + 02/13 with no obstruction; possible postop ileus - CT A/P 02/11 no abscess, no SBO; possible ileus - Cdiff 02/09 + 02/12 negative - WBC count normalized - per GI impression also was of postop ileus; SBFT showed prominent SB loops and delayed transit of oral contrast - diet placed back on regular diet - cristo out 02/22 - per discussion with pt, daughter, and Gen Surg, will defer management of hiatal hernia to outpatient setting - tolerating diet without issue # JONES on CKD3 # metabolic acidosis - SCr peaked at 2.44 on 02/05, creatinine?normalized to 1.2 but rising likely due to vomiting + diarrhea- now 1.59, continue to hold furosemide -dc'ed PO bicarbonate after serum bicarb normalized. 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; per pt and family, no known hx of COPD # UTI - completed ceftriaxone # hypoK - repleted # leukocytosis - resolved # neuropathy # chronic back pain - resumed pregabalin # mod pr/elise malnutrition - Ensure # st 2 pressure ulcers bilateral buttocks - air loss mattress, barrier cream, position changes # VTE ppx: UFH # dispo: re-eval for [facility] In my clinical judgment, the patient requires continued hospitalization for the following reasons: Klebsiella bacteremia on IV antibiotics Quality Stroke Does the patient have a stroke diagnosis?: No VTE Prior VTE?: No VTE Risk Level:: Medical - moderate - high VTE Device Contraindication: N/A - Device Ordered VTE Drug Contraindication: Treatment Not Indicated
[2022-02-27] MEDS: Sertraline HCL 100 MG TABLET PO (21:26)
[2022-02-27] MEDS: Acetaminophen 325 MG TABLET 650 MG PO (21:26)
[2022-02-27] MEDS: traZODone HCL 25 MG HALFTAB PO (21:26)
[2022-02-28 00:59] VITALS: BP 145/76; PULSE 79; RESP 14; TEMP 37; O2SAT 92
[2022-02-28] MEDS: Melatonin 3 MG TABLET 6 MG PO (03:08)
[2022-02-28 07:26] VITALS: BP 165/77; PULSE 79; RESP 16; TEMP 36.9; O2SAT 93
[2022-02-28 07:33] LABS: Hematocrit 28.3 % (37.0-47.0); Mean Corpuscular HGB Conc 31.8 g/dl (31.0-35.0); Mean Corpuscular Hemoglobin 31.3 pg (27.0-33.0); Mean Corpuscular Volume 98.3 fL (80.0-98.0); Mean Platelet Volume 9.3 fL (9.4-12.3); Platelet Count 282 X10*3/uL (160-400); Red Blood Count 2.88 X10*6/uL (4.20-5.50); Red Cell Distribution Width 14.5 % (11.0-16.0); White Blood Count 6.7 X10*3/uL (4.8-10.8)
[2022-02-28 08:10] LABS: Anion Gap 15 (12-20); Blood Urea Nitrogen 25 mg/dL (9-16); Calcium 8.9 mg/dL (8.4-10.2); Carbon Dioxide 24 mmol/L (22-29); Chloride 109 mmol/L (96-108); Creatinine Clr Calc Pharmacy 26.4; Estimated Glomerular Filt Rate 36; Glucose Random 92 mg/dL (60-115); Magnesium 1.4 mg/dL (1.6-2.6); Potassium 4.3 mmol/L (3.3-5.1); Sodium 144 mmol/L (135-145)
[2022-02-28] MEDS: 0.9 % Sodium Chloride Flush 3 ML SYRINGE IVFLUSH ×3 (09:25→19:58)
[2022-02-28] MEDS: Mineral Oil/Petrolatum,White 106 GM Tube 1 APPL TOPICAL ×2 (09:25→21:38)
[2022-02-28] MEDS: Magnesium Sulfate/H2O 2 GM/50 ML PIGGYBACK IV (09:26)
[2022-02-28] MEDS: Magnesium Oxide 400 MG TABLET PO ×2 (09:26→16:45)
[2022-02-28] MEDS: Lidocaine 4 % Patch ADH..PATCH 1 PATCH TRANSDERMA (09:26)
[2022-02-28 10:32] LABS: COVID-19 Test Negative (Negative)
[2022-02-28 10:46] VITALS: BP 134/70; BP 165/77; PULSE 74; PULSE 79; RESP 16; TEMP 37.2; O2SAT 93; O2SAT 96
--- NOTE | 2022-02-28 11:56 | P.PNIM_ITS ---
Subjective Subjective Date of Service: 02/28/22 Interval History: no bed at [facility]. trying for another STR. cough/dyspnea improved no abd pain slept a little better overnight Review of Systems Review of Systems: Yes all other systems are reviewed and are negative Physical Exam Vital Signs: Vital Signs: Last Vital Signs Temp 98.9 F 02/28/22 10:46 Pulse 74 02/28/22 10:46 Resp 16 02/28/22 10:46 BP 134/70 02/28/22 10:46 Pulse Ox 96 02/28/22 10:46 O2 Del Method 02/28/22 10:46 O2 Flow Rate 2 02/28/22 10:46 FiO2 98 02/23/22 19:11 BMI result Body Mass Index 27.5 General: alert, oriented x3 , no acute distress Neck: no JVD Resp:? clear to auscultation CVS: S1,S2,RRR GI:?? abdomen soft nontender, normal bowel sounds, midline incision scar well- healed Skin: No rash, stage 2 pressure ulcer both buttock Extremities: no pitting edema, mild hyperemia dorsum of right foot with bluish discoloration of toes, chronic as per patient, good pulses, cold extremities Neuro:? motor grossly intact Psych:? normal affect Objective Data Active Medications Acetaminophen (Acetaminophen Supp 650 Mg Supp.Rect) [address] Q6H PRN PRN Reason: Pain, Mild (Pain Scale 1-3) Acetaminophen (Acetaminophen 325 Mg Tablet) 650 mg PO Q6H PRN PRN Reason: Pain, Mild (Pain Scale 1-3) Last Admin: 02/25/22 15:10 Dose: 650 mg Documented By: KIMBERLY Acetaminophen (Acetaminophen 325 Mg Tablet) 650 mg PO DAILY@2029 [facility] Last Admin: 02/27/22 21:26 Dose: 650 mg Documented By: MIGUEL Albuterol Sulfate (Albuterol Sulfate (0.083%) 2.5 Mg/3 Ml Vial.Neb) 2.5 mg INHALE Q2H PRN PRN Reason: Shortness of Breath/Wheezing Albuterol/Ipratropium (Albuterol/Iprat 2.5/0.5mg 3 Ml Ampul.Neb) 3 ml INHALE RQ4H WHILE AWAKE [facility] Last Admin: 02/28/22 11:36 Dose: Not Given Documented By: YESY Non-Admin Reason: Patient Refused Bisacodyl (Bisacodyl 10 Mg Supp.Rect) [address] DAILY PRN PRN Reason: Constipation Doxycycline Hyclate (Doxycycline Hyclate 100 Mg Tablet) 100 mg PO Q12H [facility] Last Admin: 02/28/22 06:12 Dose: 100 mg Documented By: MIGUEL Levofloxacin (Levaquin) 500 mg in 100 mls @ 100 mls/hr IV Q48H [facility] Last Infusion: 02/26/22 14:39 Dose: 0 mls/hr Documented By: SUSAN Lidocaine (Lidocaine 4 % Patch Adh..Patch) 1 patch TRANSDERMA DAILY [facility]; Protocol Last Admin: 02/28/22 09:26 Dose: 1 patch Documented By: ROBBY Loperamide HCl (Loperamide Hcl 2 Mg Capsule) 2 mg PO Q4H PRN PRN Reason: Diarrhea Last Admin: 02/20/22 20:56 Dose: 2 mg Documented By: ISABELLATEKMaykel Magnesium Oxide (Magnesium Oxide 400 Mg Tablet) 400 mg PO BIDPC [facility] Last Admin: 02/28/22 09:26 Dose: 400 mg Documented By: ROBBY Melatonin (Melatonin 3 Mg Tablet) 6 mg PO BEDTIME PRN PRN Reason: sleep Last Admin: 02/28/22 03:08 Dose: 6 mg Documented By: MIGUEL Multi-Ingred Cream/Lotion/Oil/Oint (Mineral Oil/Petrolatum,White 106 Gm Tube) 1 appl TOPICAL BID [facility]; Protocol Last Admin: 02/28/22 09:25 Dose: 1 appl Documented By: ROBBY Ondansetron HCl (Ondansetron Hcl 4 Mg/2 Ml Vial) 4 mg IVPUSH Q8H PRN PRN Reason: Nausea and Vomiting Last Admin: 02/26/22 20:36 Dose: 4 mg Documented By: YON Sertraline HCl (Sertraline Hcl 100 Mg Tablet) 100 mg PO DAILY@2030 [facility] Last Admin: 02/27/22 21:26 Dose: 100 mg Documented By: MIGUEL Simethicone (Simethicone 80 Mg Tab.Chew) 80 mg PO BID PRN PRN Reason: Gas Last Admin: 02/19/22 10:54 Dose: 80 mg Documented By: NORMA Sodium Chloride (0.9 % Sodium Chloride Flush 3 Ml Syringe) 3 ml IVFLUSH QSHIFT [facility] Last Admin: 02/28/22 09:25 Dose: 3 ml Documented By: ROBBY Trazodone HCl (Trazodone Hcl 25 Mg Halftab) 25 mg PO BEDTIME [facility] Last Admin: 02/27/22 21:26 Dose: 25 mg Documented By: MIGUEL Zinc Acetate/Diphenhydramine (Diphenhydramine Hcl 2 % Cream 28 Gm Tube) 1 appl TOPICAL QID PRN; Protocol PRN Reason: Itching Last Admin: 02/27/22 09:57 Dose: 1 appl Documented By: KIMBERLY Labs CBC & Chem 7: 02/28/22 06:57 02/28/22 06:57 Labs: Laboratory Results - last 24 hr 02/28/22 02/28/22 02/28/22 06:57 06:57 09:37 MCV 98.3 H MCH 31.3 MCHC 31.8 RDW 14.5 Plt Count 282 MPV 9.3 L Absolute Nucleated RBC 0.000 Nucleated RBC % (auto) 0.0 Anion Gap 15 Estim Creat Clear Calc 26.4 Estimated GFR 36 Random Glucose 92 Calcium 8.9 Magnesium 1.4 L* COVID-19 ([facility]ED) Negative COVID-19 Clin Com See Note Assessment and Plan (1) JONES (acute kidney injury): Status: Acute (2) Respiratory failure: Status: Acute Plan d#28 81yo F with unspecified mononeuropathy of BLE, CKD, spinal stenosis admitted for high-grade SBO 02/01/22, s/p ex-lap/TESHA 02/03 after which she remained intubated in the ICU; extubated 02/04 then transferred to the medical service where she had a prolonged course complicated by N/V, malnutrition, and electrolyte abnormalities due to postop ileus was preparing for discharge to [facility] 02/23 but then developed tachycardia/tachypnea/leukocytosis, elevated PCT; found to have PNA + Klebsiella oxytoca ESBL bacteremia # sepsis due to PNA, hospital-acquired, and ESBL bacteremia - tachypnea, tachycardia and leukocytosis now resolved - BCx 1 bottle grew Klebsiella oxytoca (unofficial report ESBL positive sensitive to Levaquin Bactrim gentamicin and ertapenem) - got 4d of IV pip/jean + 1d of IV vancomycin for positive MRSA screen - per ID, doxycycline d#08/19, on levofloxacin d#3 per ID - IS, OOB # hypoMg - replete, recheck in AM # acute toxic metabolic encephalopathy - resolved, was likely due to hypoxia, acute renal injury and sepsis # acute on chronic macrocytic anemia - status post 1 unit of packed RBC on 02/24/22; H+H improved; B12 + folate normal # SBO, postop ileus, resolving - ex-lap TESHA 02/03, postop went to ICU intubated - extubated 02/04, transferred to floor - NGT out 02/07 then started on liquid diet, complicated by N/V/D - AXR 02/10 + 02/13 with no obstruction; possible postop ileus - CT A/P 02/11 no abscess, no SBO; possible ileus - Cdiff 02/09 + 02/12 negative - WBC count normalized - per GI impression also was of postop ileus; SBFT showed prominent SB loops and delayed transit of oral contrast - diet placed back on regular diet - cristo out 02/22 - per discussion with pt, daughter, and Gen Surg, will defer management of hiatal hernia to outpatient setting - tolerating diet without issue # JONES on CKD3 # metabolic acidosis - SCr peaked at 2.44 on 02/05, creatinine?normalized to 1.2 but rising likely due to vomiting + diarrhea- now 1.42, continue to hold furosemide -dc'ed PO bicarbonate after serum bicarb normalized. 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; per pt and family, no known hx of COPD # UTI - completed ceftriaxone # hypoK - repleted # leukocytosis - resolved # neuropathy # chronic back pain - resumed pregabalin # mod pr/elise malnutrition - Ensure # st 2 pressure ulcers bilateral buttocks - air loss mattress, barrier cream, position changes # VTE ppx: UFH # dispo: STR- awaiting bed In my clinical judgment, the patient requires continued hospitalization for the following reasons: placement Quality Stroke Does the patient have a stroke diagnosis?: No VTE Prior VTE?: No VTE Risk Level:: Medical - moderate - high VTE Device Contraindication: N/A - Device Ordered VTE Drug Contraindication: Treatment Not Indicated
[2022-02-28] MEDS: levoFLOXacin/D5W 500 MG/100 ML PIGGYBACK 100 MG IV (13:52)
--- NOTE | 2022-02-28 14:34 | MHC.CM.PN ---
Patient planned for discharge today to [facility]. Unfortunately [facility] is full. The bed search is in progress. Multiple denials received. Patients 2nd choice for [facility] [place] [facility] is not in network. They stated that they would go for an [facility] contract if we had denials. Denials sent. Authorization and [facility] contract are in progress. Patient will travel via S at discharge.
--- NOTE | 2022-02-28 15:08 | MHC.CLN ---
F/U INTAKE APPEARS GOOD 75%. DIET RX: REGULAR-APPROPRIATE PT RECEIVING ENSURE PLUS HIGH PROTEIN TID PROVIDES ADDITIONAL 1050 KCALS, 60 G PROTEIN PER FAMILY REQUEST PATIENT WITH STAGE II TO BUTTOCKS. SUPPLEMENT APPROPRIATE TO PROMOTE WOUND HEALING CONTINUE TO MONITOR PO INTAKE CLOSELY
[2022-02-28 16:00] VITALS: BP 142/76; PULSE 76; RESP 18; TEMP 36.1; O2SAT 98
[2022-02-28 19:13] VITALS: BP 135/77; PULSE 78; RESP 18; TEMP 36.1; O2SAT 95
[2022-02-28] MEDS: traZODone HCL 25 MG HALFTAB PO (19:57)
[2022-02-28] MEDS: Sertraline HCL 100 MG TABLET PO (19:57)
[2022-02-28] MEDS: Acetaminophen 325 MG TABLET 650 MG PO (19:58)
[2022-03-01] VITALS: BP 136/67; PULSE 83; RESP 16; TEMP 36.7; O2SAT 94
[2022-03-01] MEDS: Melatonin 3 MG TABLET 6 MG PO (00:52)
[2022-03-01] MEDS: Mineral Oil/Petrolatum,White 106 GM Tube 1 APPL TOPICAL (07:11)
[2022-03-01] MEDS: Lidocaine 4 % Patch ADH..PATCH 1 PATCH TRANSDERMA (07:11)
[2022-03-01] MEDS: Magnesium Oxide 400 MG TABLET PO (07:11)
[2022-03-01] MEDS: 0.9 % Sodium Chloride Flush 3 ML SYRINGE IVFLUSH (07:12)
[2022-03-01 07:53] VITALS: BP 161/88; PULSE 84; RESP 18; TEMP 36.8; O2SAT 95
[2022-03-01 09:09] LABS: Creatinine Clr Calc Pharmacy 28.3; Estimated Glomerular Filt Rate 39; Magnesium 1.4 mg/dL (1.6-2.6)
--- NOTE | 2022-03-01 09:28 | MHC.CM.PN ---
Addendum entered by Soledad Marvin 03/01/22 10:23: [facility] provided auth. 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 Patient and RN notified. Addendum entered by Soledad Marvin 03/01/22 09:48: Call received from [facility] trip denied due to type of insurance policy MEDICARE. [facility] preferred provider. Called [facility]. They declined call due to [facility] preferred provider of [facility]. Notified CM OP credit analysis manager. She is reaching out to [facility] contact. [facility] notified of transport issue. Original Note: IMM 03/01/22 Patient is discharged to [facility] today via BLS. DC info has been sent to the facility. Transport booked with [facility] @ 11AM. A negative covid test was sent to the facility yesterday.
[2022-03-01 10:23] VITALS: BP 161/88; PULSE 84; O2SAT 95
--- NOTE | 2022-03-01 10:34 | PM.DS ---
DS: Providers Provider Date of Service: 03/01/22 Date of admission: 02/01/22 23:10 Date of discharge: 03/01/22 Primary care physician: Ramsey Gooden MD Consults: 02/04/22 11:23 Consult to General Surgery Routine Consulting Provider: Alonzo Weiss Reason for consultation: SBO Has provider been notified: Yes 02/05/22 12:41 Consult to Nephrology Routine Consulting Provider: Vinay Owens Reason for consultation: JONES Has provider been notified: No 02/14/22 07:30 Consult to Gastroenterology Routine Consulting Provider: Aaron Head Reason for consultation: vomiting & diarrhea Has provider been notified: No 02/20/22 10:13 Consult to Gastroenterology Routine Consulting Provider: [facility] Reason for consultation: Regurgitation/lower esophageal stricture/spasm? Has provider been notified: Yes 02/23/22 12:18 Consult to Infectious Diseases Routine Consulting Provider: Suzette Nguyen Reason for consultation: hcap DS: Diagnosis Discharge Diagnosis (1) Small bowel obstruction: Status: Acute (2) Postoperative ileus: Status: Acute (3) Acute kidney injury superimposed on CKD: Status: Acute (4) Regurgitation of food: Status: Acute (5) Stage II pressure ulcer of buttock: Status: Acute (6) Malnutrition: Status: Acute (7) Hiatal hernia: Status: Acute (8) Acute respiratory failure with hypoxia: Status: Acute (9) Sepsis: Status: Acute (10) ESBL (extended spectrum beta-lactamase) producing bacteria infection: Status: Acute (11) Gram-negative bacteremia: Status: Acute (12) Hospital-acquired pneumonia: Status: Acute (13) Hypomagnesemia: Status: Acute (14) Hypokalemia: Status: Acute (15) Acute on chronic anemia: Status: Acute (16) Toxic metabolic encephalopathy: Status: Acute DS: Summary Hospital Course Hospital Course: from admission H+P by hospitalist Daryl Gill, 02/01/22: This is a 81-year-old female with bilateral unspecified mononeuropathy of lower extremity, chronic kidney disease, gout who presents to the emergency department for evaluation of right abdominal pain.? Patient states it started 4 days ago when she experienced right abdominal pain followed by diarrhea and episodes of nonbloody emesis.? States she ate fish prior to this.? Patient has not had a bowel movement since, that is approximately no bowel movement for the last 3 days.? She is passing gas and is burping.? Also has had episodes of nausea every time she tries to eat something.? Her last episode of vomiting was about 2 days ago.? Patient states her abdominal pain/cramps are located in the right lower quadrant/epigastric region, nonradiating and has been progressive over the last 3 days.? No similar complaints in the past.? Denies previous abdominal surgery.? Has had vaginal hysterectomy and rectal prolapse surgery.? Patient denies fever, chills, chest discomfort, palpitations, shortness of breath, changes in urinary habits In the emergency department CT of the abdomen was concerning for small bowel obstruction. This 81yo F with unspecified mononeuropathy of BLE, CKD3, and spinal stenosis was admitted to the hospitalist service for a high-grade SBO 02/01/22. Surgery was consulted and she underwent ex-lap/TESHA 02/03, after which she remained intubated in the ICU. She was extubated 02/04 then transferred to the medical service where she had a prolonged course complicated by N/V, malnutrition, and electrolyte abnormalities due to postoperative ileus. She gradually recovered and was preparing for discharge to STR 02/23 but then developed tachycardia/tachypnea/leukocytosis and elevated PCT. She was found to have PNA + Klebsiella oxytoca ESBL bacteremia. She was treated and recovered and discharged to STR 03/01/22. Hospital course by problem: # sepsis due to PNA, hospital-acquired, and ESBL bacteremia - tachypnea, tachycardia and leukocytosis resolved - blood culture grew Klebsiella oxytoca (ESBL-producing, sensitive to levofloxacin). ID was consulted and she will be treated with PO levofloxacin for 14 days; she received 4 days in the hospital. - for pneumonia, in addition to the levofloxacin, she will be treated with PO doxycycyline for 7 days; she received 4 days in the hospital. # hypoMg - due to ileus and diarrhea. She received multiple rounds of IV magnesium and was discharged on PO magnesium oxide. Magnesium level should be repeated on 03/03/22. # acute toxic metabolic encephalopathy ?- resolved' was likely due to hypoxia, acute renal injury and sepsis # acute on chronic macrocytic anemia -? status post 1 unit of packed RBC on 02/24/22; H+H improved; B12 + folate normal. Recheck CBCd on 03/03/22. # SBO, postoperative ileus - ex-lap TESHA 02/03, postop went to ICU intubated - extubated 02/04, transferred to floor - NGT out 02/07 then started on liquid diet, complicated by N/V/D - AXR 02/10 + 02/13 with no obstruction; postop ileus - CT A/P 02/11 no abscess, no SBO; possible ileus - Cdiff 02/09 + 02/12 negative - WBC count normalized - per GI impression also was of postop ileus; SBFT showed prominent SB loops and delayed transit of oral contrast - diet placed back on regular diet - cristo out 02/22 - per discussion with pt, daughter, and Gen Surg, will defer management of hiatal hernia to outpatient setting - tolerating diet without issue # JONES on CKD3 # metabolic acidosis - Nephrology consulted - SCr peaked at 2.44 on 02/05, creatinine?normalized to 1.2 but rising likely due to vomiting + diarrhea- now at baseline of 1.32, continue to hold furosemide - discontinued PO bicarbonate after serum bicarb normalized. # acute hypoxic resp failure - due to pneumonia; wean off gradually # UTI - completed a course of ceftriaxone # hypoK - repleted # mod pr/elise malnutrition - Ensure recommended # st 2 pressure ulcers bilateral buttocks - air loss mattress, barrier cream, position changes Time Spent with Patient Time attestation: Total time spent providing and/or coordinating discharge services: Discharge coordination time: Greater than 30 minutes Quality: Safe Use of Opioids Does Pt have an Active Cancer Diagnosis on the Problem List?: No Quality: Stroke Does the patient have a stroke diagnosis?: No Physical Exam Vital Signs: Vital Signs: Last Vital Signs Temp 98.3 F 03/01/22 07:53 Pulse 84 03/01/22 10:23 Resp 18 03/01/22 07:53 BP 161/88 H 03/01/22 10:23 Pulse Ox 95 03/01/22 10:23 O2 Del Method 03/01/22 07:53 O2 Flow Rate 2 03/01/22 07:53 FiO2 98 02/23/22 19:11 BMI result Body Mass Index 27.5 General: alert, oriented x3 , no acute distress Neck: no JVD Resp:? clear to auscultation CVS: S1,S2,RRR GI:?? abdomen soft nontender, normal bowel sounds, midline incision scar well-healed Skin: No rash, stage 2 pressure ulcer both buttock Extremities: no pitting edema, mild hyperemia dorsum of right foot with bluish discoloration of toes, chronic as per patient, good pulses, cold extremities Neuro:? motor grossly intact Psych:? normal affect ? DS: Data Data Completed and Pending Completed studies during hospitalization [Text1]: Laboratory Results WBC 6.7 X10*3/uL (4.8-10.8) 02/28/22 06:57 RBC 2.88 X10*6/uL (4.20-5.50) L 02/28/22 06:57 Hgb 9.0 g/dl (12.0-16.0) L 02/28/22 06:57 Hct 28.3 % (37.0-47.0) L 02/28/22 06:57 MCV 98.3 fL (80.0-98.0) H 02/28/22 06:57 MCH 31.3 pg (27.0-33.0) 02/28/22 06:57 MCHC 31.8 g/dl (31.0-35.0) 02/28/22 06:57 RDW 14.5 % (11.0-16.0) 02/28/22 06:57 Plt Count 282 X10*3/uL (160-400) 02/28/22 06:57 MPV 9.3 fL (9.4-12.3) L 02/28/22 06:57 Immature Gran % (Auto) 0.3 % (0.0-0.4) 02/23/22 11:10 Neut % (Auto) 94.5 % (45-73) H 02/23/22 11:10 Lymph % (Auto) 2.4 % (20-40) L 02/23/22 11:10 [place] % (Auto) 2.6 % (2-11) 02/23/22 11:10 Eos % (Auto) 0.1 % (0-4) 02/23/22 11:10 Baso % (Auto) 0.1 % (0-2) 02/23/22 11:10 Lymph # (Auto) 0.4 X10*3/uL (1.2-4.9) L 02/23/22 11:10 [place] # (Auto) 0.4 X10*3/uL (0.1-1.2) 02/23/22 11:10 Eos # (Auto) 0.0 X10*3/uL (0.0-0.4) 02/23/22 11:10 Baso # (Auto) 0.0 X10*3/uL (0.0-0.2) 02/23/22 11:10 Abs Immat Gran (auto) 0.05 X10*3/uL (0.00-0.03) H 02/23/22 11:10 Absolute Neuts (auto) 13.9 x10*3/uL (2.0-8.3) H 02/23/22 11:10 Absolute Nucleated RBC 0.000 X10*3/uL (0.0-0.012) 02/28/22 06:57 Nucleated RBC % (auto) 0.0 /100WBC (0.0-0.2) 02/28/22 06:57 Neutrophils % (Manual) 64 % (45-73) 02/05/22 06:20 Band Neutrophils % 14 % (3-5) H 02/05/22 06:20 Lymphocytes % (Manual) 9 % (20-40) L 02/05/22 06:20 Monocytes % (Manual) 11 % (2-11) 02/05/22 06:20 Eosinophils % (Manual) 1 % (0-4) 02/05/22 06:20 Basophils % (Manual) 1 % (0-2) 02/05/22 06:20 Abs Neuts (Manual) 4.0 X10*3/uL (2.0-8.3) 02/05/22 06:20 Lymphocytes # (Manual) 0.5 X10*3/uL (1.2-4.9) L 02/05/22 06:20 Monocytes # (Manual) 0.6 X10*3/uL (0.1-1.2) 02/05/22 06:20 Eosinophils # (Manual) 0.1 X10*3/uL (0.0-0.4) 02/05/22 06:20 Basophils # (Manual) 0.1 X10*3/uL (0.0-0.2) 02/05/22 06:20 Toxic Vacuolation PRESENT 02/05/22 06:20 Platelet Estimate NORMAL (NORMAL) 02/05/22 06:20 Plt Morphology Comment NORMAL 02/05/22 06:20 RBC Morphology NOTED 02/05/22 06:20 Polychromasia 1+ (0-2) /OIF 02/05/22 06:20 Basophilic Stippling 1+ (0-2) /OIF 02/04/22 05:40 Macrocytosis 1+ (5-14) /OIF 02/05/22 06:20 Ladonna Cells 3+ (>5) /OIF 02/05/22 06:20 Schistocytes 1+ (0-2) /OIF 02/05/22 06:20 Smear Tech's Comments VERIFIED 02/23/22 11:10 PT 11.2 SEC (10.0-13.1) 02/22/22 06:27 INR 1.0 (0.9-1.1) 02/22/22 06:27 O2 Saturation 92.0 % 02/23/22 16:57 ABG pH at Pt Temp 7.39 (7.35-7.45) 02/23/22 16:57 ABG pCO2 at Pt Temp 33 mmHg (32-45) 02/23/22 16:57 ABG pO2 at Pt Temp 68 mmHg (83-108) L 02/23/22 16:57 ABG HCO3 20 mmol/L (22-26) L 02/23/22 16:57 ABG Base Excess (Actual) -3.6 mmol/L 02/23/22 16:57 VBG pH 7.23 (7.32-7.43) L 02/07/22 06:39 VBG pCO2 41 mmHg 02/07/22 06:39 VBG pO2 63 mmHg 02/07/22 06:39 VBG HCO3 17 mmol/L (22-26) L 02/07/22 06:39 VBG O2 Saturation 88.0 % 02/07/22 06:39 VBG Base Excess -9.3 mmol/L 02/07/22 06:39 Sodium 144 mmol/L (135-145) 02/28/22 06:57 Potassium 4.3 mmol/L (3.3-5.1) 02/28/22 06:57 Chloride 109 mmol/L (96-108) H 02/28/22 06:57 Carbon Dioxide 24 mmol/L (22-29) 02/28/22 06:57 Anion Gap 15 (12-20) 02/28/22 06:57 BUN 25 mg/dL (9-16) H 02/28/22 06:57 Creatinine 1.32 mg/dL (0.5-1.4) 03/01/22 07:59 Estim Creat Clear Calc 28.3 03/01/22 07:59 Estimated GFR 39 03/01/22 07:59 POC Glucose 151 mg/dL (60-115) H 02/23/22 16:23 Random Glucose 92 mg/dL (60-115) 02/28/22 06:57 Lactic Acid 1.8 mmol/L (0.5-2.0) 02/23/22 17:00 Calcium 8.9 mg/dL (8.4-10.2) 02/28/22 06:57 Phosphorus 3.7 mg/dL (2.7-4.5) 02/15/22 06:44 Magnesium 1.4 mg/dL (1.6-2.6) L* 03/01/22 07:59 Total Bilirubin < 0.2 mg/dL (0.0-1.0) 02/23/22 11:14 Direct Bilirubin < 0.2 mg/dL (0.0-0.5) 02/23/22 11:14 AST 9 U/L (5-31) D 02/23/22 11:14 ALT 8 U/L (0-31) 02/23/22 11:14 Alkaline Phosphatase 74 U/L (39-117) 02/23/22 11:14 B-Natriuretic Peptide 228 pg/mL (<100) H 02/23/22 11:10 Total Protein 5.2 g/dL (6.5-8.0) L 02/23/22 11:14 Albumin 2.8 g/dL (3.5-5.0) L 02/23/22 11:14 Prealbumin 13.0 mg/dL (20-40) L 02/19/22 06:08 Triglycerides 185 mg/dL 02/15/22 06:44 Vitamin B12 306 pg/mL (200-900) 02/01/22 23:53 Folate 12.2 ng/mL (> or = 4.0) 02/01/22 23:53 Procalcitonin 1.72 ng/mL 02/27/22 06:19 Urine Color Yellow 02/02/22 00:08 Urine Appearance Cloudy 02/02/22 00:08 Urine pH 5.5 (5.0-9.0) 02/02/22 00:08 Ur Specific Wheeler 1.020 (1.005-1.025) 02/02/22 00:08 Urine Protein 300 (3+) mg/dL (Neg-Trace) H 02/02/22 00:08 Urine Glucose (UA) Negative mg/dL (Negative) 02/02/22 00:08 Urine Ketones 15 mg/dL (Negative) 02/02/22 00:08 Urine Blood Negative (Negative) 02/02/22 00:08 Urine Nitrite Negative (Negative) 02/02/22 00:08 Ur Leukocyte Esterase Large (3+) (Negative) H 02/02/22 00:08 Urine RBC 6-10 /HPF (0-2) H 02/02/22 00:08 Urine WBC 21-50 /HPF (0-5) H 02/02/22 00:08 Ur Squamous Epith Cells 11-20 /HPF (0-2) 02/02/22 00:08 Urine Bacteria 2+ (None Seen) 02/02/22 00:08 Hyaline Casts 3-5 /LPF (0-2) 02/02/22 00:08 Nasal Screen MRSA (PCR) NEGATIVE (Negative) 02/23/22 13:58 Nasal S. aureus Screen POSITIVE (Negative) A 02/23/22 13:58 Nasal MRSA/S.aureus Interp SEE NOTE 02/23/22 13:58 Stool Leukocytes, Qual NEGATIVE (NEGATIVE) 02/16/22 14:32 Stl C. cayetanensis PCR Not Detected (Not Detect.) 02/16/22 14:32 Stool Rotavirus A PCR Not Detected (Not Detect.) 02/16/22 14:32 Stl Adenov F 40/41 PCR Not Detected (Not Detect.) 02/16/22 14:32 Stool Astrovirus (PCR) Not Detected (Not Detect.) 02/16/22 14:32 Stool Campylobacter PCR Not Detected (Not Detect.) 02/16/22 14:32 Stool Cryptosporidium PCR Not Detected (Not Detect.) 02/16/22 14:32 Stl Sh Tox Pr E STEC PCR Not Detected (Not Detect.) 02/16/22 14:32 Stool E coli O157 PCR Not applicable (Not Detect.) 02/16/22 14:32 Stl Enterotoxigenic E PCR Not Detected (Not Detect.) 02/16/22 14: Stool EPEC (PCR) Not Detected (Not Detect.) 02/16/22 14: Stool EAEC (PCR) Not Detected (Not Detect.) 02/16/22 14:32 Stl E. histolytica PCR Not Detected (Not Detect.) 02/16/22 14: Stool Giardia Lamblia PCR Not Detected (Not Detect.) 02/16/22 14:32 Stl P. shigelloides PCR Not Detected (Not Detect.) 02/16/22 14:32 Stool Salmonella PCR Not Detected (Not Detect.) 02/16/22 14:32 Stool Sapovirus (PCR) Not Detected (Not Detect.) 02/16/22 14:32 Stl Shigella/EIEC PCR Not Detected (Not Detect.) 02/16/22 14:32 St Y.enterocolitica PCR Not Detected (Not Detect.) 02/16/22 14:32 Stool Vibrio (PCR) Not Detected (Not Detect.) 02/16/22 14:32 Stl Vibrio cholerae PCR Not Detected (Not Detect.) 02/16/22 14:32 Stl Norovirus GI/GII PCR Not Detected (Not Detect.) 02/16/22 14:32 C. difficile Tox B Gene NEGATIVE (Negative) 02/16/22 14:32 COVID-19 (JARRED) Negative (Negative) 02/28/22 09:37 COVID-19 Clin Com See Note 02/28/22 09:37 Blood Type A Positive 02/24/22 15:09 Antibody Screen NEGATIVE 02/24/22 15:09 Crossmatch See Detail 02/24/22 15:[address] 02/07/22 16:00 IMPRESSION: No acute intracranial pathology. Abdomen X-Ray 02/13/22 09:00 IMPRESSION: Distended air-filled loops of bowel. This probably represents a postoperative ileus. Imaging follow-up recommended. Upper GI and Small Bowel X-Ray 02/15/22 18:45 IMPRESSION: 1. Prominent small bowel loops throughout the abdomen on initial real estate instructor images which are similar to previous study 02/13/2022. 2. There is abnormal transit of oral contrast in the small bowel with contrast reaching ascending colon and terminal ileum by 9.5 hours. Chest X-Ray 02/23/22 08:30 IMPRESSION: Increased opacities in the left mid and lower lung jernigan suggest infiltrates and/or atelectasis. Abdomen/Pelvis CT 02/24/22 22:13 IMPRESSION: Increasing atelectasis or small infiltrates at the left lung base. Dense consolidation with air bronchograms in the right middle and right lower lobes and elevation of the right hemidiaphragm unchanged from prior exam. Diverticulosis. No evidence of diverticulitis. Fluid-filled loops of small and proximal large bowel probably representing an ileus. No evidence of enteritis colitis or diverticulitis. Fleischner guidelines were followed. Discharge Plan Discharge Anticipated Discharge Date/Time: 03/01/22 11:00 Patient Disposition: [facility] Discharge Diagnosis: small bowel obstruction, postoperative ileus sepsis due to pneumonia and ESBL bacteremia hypomagnesemia toxic/metabolic encephalopathy acute/chronic anemia JONES/CKD3, metabolic acidosis acute hypoxic respiratory failure urinary tract infection hypokalemia moderate protein-calorie malnutrition stage 2 pressure ulcers of bilateral buttocks Referrals: Nery Dodson [Other] - 1 Week Ramsey Gooden MD [Primary Care Provider] - 1 Week Alonzo Weiss MD [Physician] - 2 Weeks Discharge Medications: New albuterol sulfate 2.5 mg /3 mL (0.083 %) Solution For Nebulization 2.5 mg inhalation Q2H PRN (Reason: Shortness Of Breath/Wheezing) Qty: 1 0RF magnesium oxide 400 mg (241.3 mg magnesium) Tablet 800 mg PO BIDPC Qty: 60 0RF doxycycline hyclate 100 mg Tablet 100 mg PO Q12H Qty: 6 0RF levofloxacin 500 mg Tablet 500 mg PO Q48H Qty: 5 0RF Continued aspirin 81 mg tablet,delayed release (DR/EC) 81 mg PO DAILY Qty: 30 0RF atorvastatin 20 mg tablet 1 tab PO DAILY sertraline 100 mg tablet 1 tab PO DAILY pregabalin 75 mg capsule 1 cap PO BID allopurinol 100 mg tablet 1 tab PO DAILY Discharge Orders: Discharge Order (Routine); Ordered 03/01/22 Ordered By: Kalie Butt Diet: Regular diet Activity on Discharge: As tolerated Stand Alone Forms: Patient Portal Discharge page Other Ambulatory Orders: Basic Metabolic Panel (Routine) Timeframe: 2 Days Facility: [facility] - Location: Laboratory Ordered By: Kalie Butt Complete Blood Count Auto Diff (Routine) Timeframe: 2 Days Facility: [facility] - Location: Laboratory Ordered By: Kalie Butt Magnesium (Routine) Timeframe: 2 Days Facility: [facility] - Location: Laboratory Ordered By: Kalie Butt Care Plan Goals: recovery from prolonged hospitalization Health Concerns: small bowel obstruction, postoperative ileus - follow up with surgeon Dr Weiss in 2 weeks. cristo were already removed. sepsis due to pneumonia and ESBL bacteremia - take doxycycline 100 mg daily for 3 more days - take levofloxacin 500 mg every other day 03/02/22-03/11/22 hypomagnesemia - take magnesium oxide 800 mg twice daily - recheck magnesium level on 03/03/22 toxic/metabolic encephalopathy -resolved acute/chronic anemia - recheck CBCd on 03/03/22 JONES/CKD3, metabolic acidosis - recheck BMP on 03/03/22 acute hypoxic respiratory failure - wean O2 as tolerated urinary tract infection - treated hypokalemia - resolved moderate protein-calorie malnutrition - 1 can of Ensure twice daily stage 2 pressure ulcers of bilateral buttocks - air loss mattress, barrier cream, position changes Plan of Treatment: see above Assessment: See Discharge Summary.
[2022-03-01] MEDS: levoFLOXacin 500 MG TABLET PO (10:50)
[2022-03-01 11:23] VITALS: BP 146/74; PULSE 78; RESP 20; TEMP 36.5; O2SAT 98
== END 2022-03-01 12:35 | disposition skilled nursing facility (03) | DRG 335 ==
LOC: HO.ED 22:40 → HO.EDOVER 23:21 → HO.S3 02-03 13:28 → HO.ICU 02-03 18:10 → HO.IMC 02-05 00:30
PROVIDERS: Hospitalist; Internal Medicine; Internal Medicine Cardiovascular Disease; Internal Medicine Gastroenterology; Nurse Practitioner Acute Care; Physician Assistant; Physician Assistant Medical; Student in an Organized Health Care Education/Training Program; Surgery; Admitting Provider Student in an Organized Health Care Education/Training Program; Emergency Provider Emergency Medicine; PCP Internal Medicine; Visit Provider Family Medicine
PROC: (CPT 49320; principal; 2022-02-03 11:20)
DX: K56.51 Intestinal adhesions [bands], with partial obstruction (principal); A41.9 Sepsis, unspecified organism; J69.0 Pneumonitis due to inhalation of food and vomit; J95.821 Acute postprocedural respiratory failure; N39.0 Urinary tract infection, site not specified; N17.9 Acute kidney failure, unspecified; E44.0 Moderate protein-calorie malnutrition; E87.20 Acidosis, unspecified; Z16.12 Extended spectrum beta lactamase (ESBL) resistance; E78.5 Hyperlipidemia, unspecified; D63.1 Anemia in chronic kidney disease; M10.9 Gout, unspecified; E83.42 Hypomagnesemia; J44.9 Chronic obstructive pulmonary disease, unspecified; G57.93 Unspecified mononeuropathy of bilateral lower limbs; M41.9 Scoliosis, unspecified; G89.29 Other chronic pain; I95.9 Hypotension, unspecified; K44.9 Diaphragmatic hernia without obstruction or gangrene; R54 Age-related physical debility; E86.0 Dehydration; I12.9 Hypertensive chronic kidney disease with stage 1 through stage 4 chronic kidney disease, or unspecified chronic kidney disease; K56.7 Ileus, unspecified; D72.829 Elevated white blood cell count, unspecified; R19.7 Diarrhea, unspecified; Z68.27 Body mass index [BMI] 27.0-27.9, adult; R74.01 Elevation of levels of liver transaminase levels; N18.31 Chronic kidney disease, stage 3a; E87.6 Hypokalemia; L89.322 Pressure ulcer of left buttock, stage 2; L89.312 Pressure ulcer of right buttock, stage 2; F41.1 Generalized anxiety disorder; Z20.822 Contact with and (suspected) exposure to COVID-19; Z96.641 Presence of right artificial hip joint; Z88.0 Allergy status to penicillin; Z79.82 Long term (current) use of aspirin; Z79.899 Other long term (current) drug therapy
CPT/HCPCS: 36415; 36600; 70450; 71045; 74018; 74021; 74176; 74177; 74250; 80048; 80053; 80076; 81001; 82565; 82607; 82746; 82803; 82947; 83605; 83735; 83880; 84100; 84134; 84145; 84478; 85007; 85025; 85027; 85610; 86850; 86900; 86901; 86923; 87040; 87077; 87086; 87186; 87493; 87507; 87635; 87640; 87641; 89055; 92526; 92610; 93005; 94002; 94003; 94640; 97110; 97116; 97162; 97163; 97167; 97530; 99285; J0131; J0696; J1170; J1885; J1940; J1956; J2270; J2370; J2405; J2543; J2765; J2795; J3010; J3370; J3475; P9016; P9047; Q9967

== ENCOUNTER 2023-03-23 16:44 | Inpatient (IN) | payer MEDICARE, SELFPAY ==
--- NOTE | ~2023-03-23 | CT_ITS ---
EXAMINATION: CT ABDOMEN AND PELVIS WITHOUT CONTRAST CLINICAL INFORMATION: Abdominal pain. COMPARISON: 02/24/2022. TECHNIQUE: Multidetector volumetric imaging was performed from the superior aspect of the liver through the pubic symphysis. Sagittal and coronal reformatted images were obtained on the technologist's workstation. This CT examination was performed using dose optimization techniques as appropriate, variously including the following: *Automated exposure control *Adjustment of mA and/or kV according to patient size (this includes techniques or standardized protocols for targeted exams where dose is matched to indication/reason for exam; i.e. extremities or head) *Use of iterative reconstruction technique DLP: 1036 mGy-cm FINDINGS: LUNG BASES: There is consolidation at the right lung base associated with elevation of the right hemidiaphragm.. LIVER, GALLBLADDER, AND BILIARY TREE: The liver is normal in size, shape, and attenuation. No focal hepatic lesion or biliary ductal dilatation is present. The gallbladder is unremarkable with no evidence of radiopaque gallstones, gallbladder wall thickening, or obvious pericholecystic inflammatory changes. PANCREAS: Unremarkable. SPLEEN: Unremarkable. ADRENAL GLANDS: There is mild bilateral adrenal gland thickening. KIDNEYS AND URETERS: The kidneys are normal in size, shape, and attenuation. No hydronephrosis, hydroureter, or calculi seen. No perinephric stranding. There is a stable cyst lower pole right kidney. BLADDER: Unremarkable. GASTROINTESTINAL TRACT: The small and large bowel are unremarkable. The appendix is unremarkable. ABDOMINAL WALL: No significant hernia is appreciated. LYMPH NODES: Normal. VASCULAR: Unremarkable. PELVIC VISCERA: Unremarkable. OSSEOUS STRUCTURES: There is diffuse moderate to severe thoracolumbar disc degenerative change. There is L3- to L5 posterior fusion. There is no acute osseous abnormality. CT/CT abdomen pelvis wo IV con IMPRESSION: Right lung base consolidation with elevation of the right hemidiaphragm likely scarring and/or chronic atelectasis. No acute intra-abdominal process. Fleischner guidelines were followed.
--- NOTE | ~2023-03-23 | XR_ITS ---
EXAMINATION: XR CHEST CLINICAL INFORMATION: Pain. COMPARISON: Chest radiograph 02/23/2022. TECHNIQUE: 2 views of the chest were obtained. FINDINGS: Chronic significant asymmetric elevation of the right hemidiaphragm. Chronic air trapping and diffuse interstitial thickening suggesting COPD/emphysema. No new focal airspace opacity. No pleural effusion or pneumothorax. Stable prominence of the cardiomediastinal silhouette with redemonstration of mitral annulus calcifications. Chronic left posterolateral fifth rib fracture. 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 XR/XR chest 2V IMPRESSION: 1. No acute cardiopulmonary findings. 2. Significant chronic asymmetric elevation of the right hemidiaphragm. 3. Background suggesting some degree of air trapping and COPD/emphysema. 4. 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
--- NOTE | ~2023-03-23 | XR_ITS ---
EXAMINATION: XR ABDOMEN KUB CLINICAL INDICATION: Pain. COMPARISON: CT abdomen/pelvis 02/24/2022. TECHNIQUE: AP view of the abdomen. FINDINGS: Nonobstructive bowel gas pattern. Mild degree of stool burden. Asymmetric elevation of the right hemidiaphragm with equivocal airspace opacities in the right lower lobe. Spinal fusion hardware. Decreased bone mineralization. Multifocal degenerative osteoarthritis. Surgical clips projecting over the sacrum. XR/XR KUB IMPRESSION: 1. Nonobstructive bowel gas pattern. 2. Asymmetric elevation of the right hemidiaphragm with equivocal airspace opacities in the right lower lobe. Recommend correlation with a chest radiograph.
--- NOTE | ~2023-03-23 | US_ITS ---
EXAMINATION: US RETROPERITONEAL LIMITED (RENAL ONLY) CLINICAL INFORMATION: The urinary retention.. COMPARISON: CT scan of the abdomen and pelvis dated 03/24/2023. TECHNIQUE: Ultrasound of the kidneys was performed. FINDINGS: Evaluation is mildly limited due to shadowing by bowel gas. RIGHT KIDNEY: 9.4 x 5.2 x 6.3 cm (SAG x AP x TRV). The kidney is normal in size, contour, and echogenicity. Renal cortical thickness is normal. There is a 0.7 x 0.5 x 0.5 cm thin-walled anechoic cyst in the lower pole of the right kidney, consistent with a benign cyst. No specific imaging follow-up is warranted. No calculi or suspicious focal parenchymal lesions. No hydronephrosis. LEFT KIDNEY: 9.7 x 4.7 x 4.5 cm (SAG x AP x TRV). The kidney is normal in size, contour, and echogenicity. Renal cortical thickness is normal. There is a exophytic thin-walled 0.7 x 0.7 x 0.6 cm cyst in the mid left kidney. No imaging follow-up is recommended. No calculi or suspicious focal parenchymal lesions. No hydronephrosis. Some echogenic shadowing foci are seen adjacent to the lower pole of the left kidney, likely corresponding to the adjacent contrast-filled colon seen on CT scan from 03/24/2023. US/US renal BI IMPRESSION: * No evidence of hydronephrosis or nephrolithiasis. * Bilateral benign-appearing renal cysts. No specific imaging follow-up is warranted. * Echogenic shadowing foci are seen adjacent to the lower pole of the left kidney, likely corresponding to the adjacent contrast-filled colon seen on CT scan from 03/24/2023. * Bladder not evaluated on this limited renal ultrasound.
[2023-03-23 16:51] VITALS: BP 165/94; PULSE 82; O2SAT 95
[2023-03-23 17:11] VITALS: BP 189/91; PULSE 79; RESP 16; TEMP 36.6; O2SAT 95; BMI 22.7
--- NOTE | 2023-03-23 17:40 | ECG_ITS ---
Test Reason : FALL/PAIN Blood Pressure : / mmHG Vent. Rate : 081 BPM Atrial Rate : 081 BPM P-R Int : 132 ms QRS Dur : 082 ms QT Int : 386 ms P-R-T Axes : -02 -02 002 degrees QTc Int : 448 ms Sinus rhythm with Premature supraventricular complexes Otherwise normal ECG When compared with ECG of 01-FEB-2022 20:17, Premature supraventricular complexes are now Present Referred By: Sharan Hernandez Electronically Signed By:ANDREINA DE LEON MD
--- NOTE | 2023-03-23 18:02 | ED.GENADULT ---
HPI - General Adult General Chief complaint: General Medical Stated complaint: LOWER BACK PAIN NAUSEA Time Seen by Provider: 03/23/23 17:34 Source: patient, RN notes reviewed and old records reviewed Mode of arrival: EMS Limitations: no limitations History of Present Illness HPI narrative: 82-year-old female past medical history significant for chronic kidney disease, history of small-bowel obstruction, chronic anemia presenting for evaluation abdominal pain. Patient reports about 5 days ago she had upper respiratory symptoms with congestion, sore throat She states that this has since improved but now she has been having mostly lower abdominal pain that radiates all around to her back for the last 3 days associated nausea She also endorses ?lots of gas. ? She reports her last bowel movement was last night and it was normal for her and solid She is continuing to pass gas today. She denies any fevers or chills Patient was admitted last year from February 01 to March 01 due to small-bowel obstruction and subsequently developing hospital-acquired pneumonia and ESBL bacteremia/sepsis. She does state this does not feel similar to her previous bowel obstruction Related Data Home Medications Medication Instructions Recorded Confirmed allopurinol 100 mg tablet 1 tab PO DAILY 02/02/22 02/02/22 atorvastatin 20 mg tablet 1 tab PO DAILY 02/02/22 02/02/22 pregabalin 75 mg capsule 1 cap PO BID 02/02/22 02/02/22 sertraline 100 mg tablet 1 tab PO DAILY 02/02/22 02/02/22 Previous Rx's Medication Instructions Recorded aspirin 81 mg tablet,delayed 81 mg PO DAILY #30 tabs 03/19/20 release albuterol sulfate 2.5 mg/3 mL 2.5 mg (3 mL) inhalation Q2H PRN 03/01/22 (0.083 %) solution for nebulization Shortness Of Breath/Wheezing #1 mL doxycycline hyclate 100 mg tablet 100 mg PO Q12H #6 tabs 03/01/22 levofloxacin 500 mg tablet 500 mg PO Q48H #5 tabs 03/01/22 magnesium oxide 400 mg (241.3 mg 800 mg (2 x 400 mg (241.3 mg 03/01/22 magnesium) tablet magnesium)) PO BIDPC #60 tabs Allergies Allergy/AdvReac Type Severity Reaction Status Date / Time Opioids - Morphine Analogues AdvReac Intermediate Confusion Verified 02/23/22 11:18 oxycodone AdvReac Hallucinati Verified 02/23/22 13:45 ons Review of Systems Constitutional: Constitutional: Denies chills, Denies fever(s), Denies headache(s), Reports malaise and Reports weakness ENT: Denies headache(s) and Reports sore throat (This has since resolved) Cardiovascular: Cardiovascular: Denies chest pain and Denies dyspnea Respiratory: Respiratory: Denies chest congestion, Denies cough and Denies dyspnea Gastrointestinal: Gastrointestinal: Reports abdominal pain, Reports excessive flatus, Denies diarrhea, Reports nausea and Denies vomiting Genitourinary: Genitourinary: Denies dysuria Musculoskeletal: Musculoskeletal: Reports back pain Integumentary/Breasts: Skin/Breast: Denies rash Neurologic: Denies headache(s) and Reports weakness PMFSH Past Medical History Medical History Anxiety Chronic kidney disease COPD (chronic obstructive pulmonary disease) Gout Peripheral neuropathy Surgical History H/O vaginal hysterectomy History of right hip replacement Social History Social History Unable to assess alcohol history related to: Unknown Alcohol intake: unknown Patient Tobacco Use Status: Never used Tobacco Use of substances other than those prescribed or required for medical reasons: Unknown Advance Directives: Yes Advance Directives on File: Yes Advance Directives Date on File: 03/02/22 service: No Physical Exam ED Vital Signs: Vital Signs - 24 hr 03/23/23 17:11 03/23/23 19:46 03/23/23 22:58 Temperature 98 F 98.7 F 98.4 F Pulse Rate 79 92 94 Respiratory Rate 16 16 14 Blood Pressure 189/91 H 167/98 H 168/89 H Pulse Oximetry 95 93 96 Oxygen Delivery Method Room Air Room Air Nasal Cannula Oxygen Flow Rate 2 03/24/23 02:16 03/24/23 04:07 Temperature 98.4 F Pulse Rate 88 86 Respiratory Rate 26 H 30 H Blood Pressure 175/86 H 174/87 H Pulse Oximetry 92 97 Oxygen Delivery Method Nasal Cannula Nasal Cannula Oxygen Flow Rate 2 2 BMI result Body Mass Index 22.7 Const General: healthy appearing, comfortable, no acute distress, alert and awake Orientation/consciousness: patient oriented x3 [facility] Head: Yes normocephalic and Yes atraumatic Eyes Eyelids: Yes eyelids normal Conjunctivae: conjunctivae normal Sclerae: sclerae normal Corneas: corneas normal Pupils: Equal, round and reactive pupils present EOM: EOMs intact bilaterally Neck Neck: Yes full ROM Resp Effort & Inspection: normal respiratory effort, able to speak in complete sentences, no audible wheezes and not labored Auscultation: clear to auscultation bilaterally Cardio Rate: regular rate Rhythm: regular rhythm GI Other: Patient is nontender to light palpation but is tender to deep palpation of the right lower quadrant and left lower quadrant. There is no rebound tenderness or guarding Inspection: No distended Palpation (GI): Soft to palpation, not firm, Tenderness to palpation present (GI) in the LLQ and in the RLQ; not in the epigastrum, not in the LUQ, not in the RUQ and with no rebound tenderness, no guarding and not rigid Auscultation: normoactive bowel sounds Skin General skin exam: elasticity normal Neuro General: patient oriented x3 Cranial nerves: Yes Equal, round and reactive pupils present and Yes Bilaterally intact EOM present Cognition (Neuro): normal cognition Extrem Other: Moving all extremities well without any obvious deformities Course Reevaluation(s) Reevaluation #1: Patient has thus far been unable to lie flat for CT scan. I ordered a KUB to help evaluate for obstruction which did not show any sign of obstruction. I still feel that we need to get the CT scan to find the source of the patient's discomfort. KUB shows concern for possible pneumonia which chest x-ray does not correlate with. I ordered Benadryl 50 mg IV to see if that will help the patient relax enough to get the CT scan and lie flat comfortably. Time: 23:13 Reevaluation #2: I was asked by nursing staff to again read by the patient. The patient was very restless, complaining of nausea and still vomiting bile. Her heart rate was intermittently dropping from 105-130. Repeat EKG shows a flutter with a rate of 120 beats per minute. Will give the patient a dose of Cardizem 10 mg IV. Her QTC is normal, so she will be given a dose of Haldol 2.5 mg IV to help with her restlessness and also hopefully help with her nausea tibial to get a CT scan. Time: 23:49 Reevaluation #3: Patient signed out to the overnight staff, Dr Ulloa pending CT and disposition Time: 01:56 Medications Administered Discontinued Medications Generic Name Dose Route Start Last Admin Trade Name Vijaya PRN Reason Stop Dose Admin Diltiazem HCl 10 mg 03/23/23 23:46 03/23/23 23:53 Diltiazem Hcl 50 Mg/10 Ml Vial IVPUSH 03/23/23 23:47 10 mg STAT STA Administration Diphenhydramine HCl 50 mg 03/23/23 23:09 03/23/23 23:23 Diphenhydramine Hcl 50 Mg/Ml Vial IVPUSH 03/23/23 23:10 50 mg ONCE ONE Administration Haloperidol Lactate 2.5 mg 03/23/23 23:46 03/23/23 23:53 Haloperidol Lactate 5 Mg/Ml Vial IVPUSH 03/23/23 23:47 2.5 mg STAT STA Administration Haloperidol Lactate 2.5 mg 03/24/23 00:47 03/24/23 01:52 Haloperidol Lactate 5 Mg/Ml Vial IVPUSH 03/24/23 00:48 2.5 mg STAT STA Administration Sodium Chloride 1,000 mls @ 999 mls/hr 03/23/23 17:45 03/23/23 20:04 Ns IV 03/23/23 18:45 Infused .Q1H1M CLEMENTINE Infusion Promethazine HCl 12.5 mg/ 50.5 mls @ 202 mls/hr 03/23/23 20:44 03/23/23 23:29 Sodium Chloride IV 03/23/23 20:45 Infused ONCE ONE Infusion Sodium Chloride 1,000 mls @ 999 mls/hr 03/23/23 23:45 03/23/23 23:56 Ns IV 03/24/23 00:45 999 mls/hr .Q1H1M CLEMENTINE Administration Lorazepam 1 mg 03/23/23 19:23 03/23/23 20:03 Lorazepam 2 Mg/Ml Vial IVPUSH 03/23/23 19:24 1 mg ONCE ONE Administration Lorazepam 1 mg 03/24/23 03:33 03/24/23 03:37 Lorazepam 2 Mg/Ml Vial IVPUSH 03/24/23 03:34 1 mg ONCE ONE Administration Metoclopramide HCl 10 mg 03/23/23 19:22 03/23/23 20:03 Metoclopramide Hcl 10 Mg/2 Ml Vial IVPUSH 03/23/23 19:23 10 mg ONCE ONE Administration Ondansetron HCl 4 mg 03/23/23 17:43 03/23/23 18:15 Ondansetron Hcl 4 Mg/2 Ml Vial IVPUSH 03/23/23 17:44 4 mg ONCE ONE Administration Medical Decision Making Medical Decision Making [facility] Narrative: 82-year-old female presents for evaluation lower abdominal pain. She reports excessive gas production but is still having bowel movements this makes bowel obstruction less likely. Will check basic labs, UA to evaluate for a UTI versus pyelonephritis and a CT scan of the abdomen pelvis. She has no upper abdominal or chest pain so doubt cardiac etiology. ago over patient's case at the change of shift. Patient continued to be extremely nauseous vomiting. Received multiple doses of nausea medication and medication for sedation. Initially patient was given Zofran then patient was given Reglan then Benadryl for possible dystonic reaction. Patient has a severe allergy to narcotics in the past. The narcotic has caused her to be completely confused hallucinating. Patient and family prefer us not to give her any narcotics. She was given additional dose of Haldol x2. Benadryl. Doses of Haldol was given at 2.5 mg interval x2. Multiple attempts were made to get the CT scan of the abdomen. Ileum we were able to get the CT. There is no gross evidence of obstruction there is no gross evidence of abscess perforation there is no evidence for diverticulitis there is no acute evidence of pathology noted in the abdomen. The finding was then discussed with the hospitalist team. Will admit for further evaluation. Patient's urine showed no signs of infection. Patient' Hemoglobin is 8.3. This is approximally baseline. Currently awaiting admission. Differential Diagnosis Differential Diagnoses: The differential diagnosis associated with the presentation includes UTI Pyelonephritis Gastroenteritis Diverticulitis Acute appendicitis Small-bowel obstruction Ileus Lab Data 03/23/23 18:05 03/23/23 18:05 Labs: Lab Results 03/23/23 03/23/23 03/23/23 Range/Units 18:04 18:05 18:08 WBC 5.3 (4.8-10.8) X10*3/uL RBC 2.90 L (4.20-5.50) X10*6/uL Hgb 8.3 L (12.0-16.0) g/dl Hct 26.3 L (37.0-47.0) % MCV 90.7 (80.0-98.0) fL MCH 28.6 (27.0-33.0) pg MCHC 31.6 (31.0-35.0) g/dl RDW 14.4 (11.0-16.0) % Plt Count 251 (160-400) X10*3/uL MPV 9.9 (9.4-12.3) fL Immature Gran % (Auto) 0.9 H (0.0-0.4) % Neut % (Auto) 80.7 H (45-73) % Lymph % (Auto) 11.0 L (20-40) % [place] % (Auto) 6.8 (2-11) % Eos % (Auto) 0.4 (0-4) % Baso % (Auto) 0.2 (0-2) % Lymph # (Auto) 0.6 L (1.2-4.9) X10*3/uL [place] # (Auto) 0.4 (0.1-1.2) X10*3/uL Eos # (Auto) 0.0 (0.0-0.4) X10*3/uL Baso # (Auto) 0.0 (0.0-0.2) X10*3/uL Abs Immat Gran (auto) 0.05 H (0.00-0.03) X10*3/uL Absolute Neuts (auto) 4.3 (2.0-8.3) x10*3/uL Absolute Nucleated RBC 0.000 (0.0-0.012) X10*3/uL Nucleated RBC % (auto) 0.0 (0.0-0.2) /100WBC PT 10.1 L (11.1-13.3) SEC INR 0.8 L (0.9-1.1) APTT 28.1 (26.0-36.4) SEC Sodium 139 (135-145) mmol/L Potassium 4.5 (3.3-5.1) mmol/L Chloride 101 (96-108) mmol/L Carbon Dioxide 24 (22-29) mmol/L Anion Gap 19 (12-20) BUN 21 H (9-16) mg/dL Creatinine 1.21 (0.5-1.4) mg/dL Estim Creat Clear Calc 31.5 Estimated GFR 43 Random Glucose 100 (60-115) mg/dL Lactic Acid 0.8 (0.5-2.0) mmol/L Calcium 10.4 H D (8.4-10.2) mg/dL Total Bilirubin 0.2 (0.0-1.0) mg/dL AST 23 (5-31) U/L ALT 7 (0-31) U/L Alkaline Phosphatase 96 (39-117) U/L Total Protein 7.3 (6.5-8.0) g/dL Albumin 3.9 (3.5-5.0) g/dL Lipase 27 (8-78) U/L Urine Color Urine Appearance Urine pH (5.0-9.0) Ur Specific [place] (1.005-1.025) Urine Protein (Neg-Trace) mg/dL Urine Glucose (UA) (Negative) mg/dL Urine Ketones (Negative) mg/dL Urine Blood (Negative) Urine Nitrite (Negative) Ur Leukocyte Esterase (Negative) Urine RBC (0-2) /HPF Urine WBC (0-5) /HPF Ur Squamous Epith Cells (0-2) /HPF Urine Bacteria (None Seen) Hyaline Casts (0-2) /LPF Influenza Type A (PCR) NEGATIVE (Negative) Influenza Type B (PCR) NEGATIVE (Negative) RSV RNA Qual (PCR) NEGATIVE (Negative) SARS-CoV-2 RNA (RT-PCR) NEGATIVE (Negative) 03/23/23 Range/Units 20:22 WBC (4.8-10.8) X10*3/uL RBC (4.20-5.50) X10*6/uL Hgb (12.0-16.0) g/dl Hct (37.0-47.0) % MCV (80.0-98.0) fL MCH (27.0-33.0) pg MCHC (31.0-35.0) g/dl RDW (11.0-16.0) % Plt Count (160-400) X10*3/uL MPV (9.4-12.3) fL Immature Gran % (Auto) (0.0-0.4) % Neut % (Auto) (45-73) % Lymph % (Auto) (20-40) % [place] % (Auto) (2-11) % Eos % (Auto) (0-4) % Baso % (Auto) (0-2) % Lymph # (Auto) (1.2-4.9) X10*3/uL [place] # (Auto) (0.1-1.2) X10*3/uL Eos # (Auto) (0.0-0.4) X10*3/uL Baso # (Auto) (0.0-0.2) X10*3/uL Abs Immat Gran (auto) (0.00-0.03) X10*3/uL Absolute Neuts (auto) (2.0-8.3) x10*3/uL Absolute Nucleated RBC (0.0-0.012) X10*3/uL Nucleated RBC % (auto) (0.0-0.2) /100WBC PT (11.1-13.3) SEC INR (0.9-1.1) APTT (26.0-36.4) SEC Sodium (135-145) mmol/L Potassium (3.3-5.1) mmol/L Chloride (96-108) mmol/L Carbon Dioxide (22-29) mmol/L Anion Gap (12-20) BUN (9-16) mg/dL Creatinine (0.5-1.4) mg/dL Estim Creat Clear Calc Estimated GFR Random Glucose (60-115) mg/dL Lactic Acid (0.5-2.0) mmol/L Calcium (8.4-10.2) mg/dL Total Bilirubin (0.0-1.0) mg/dL AST (5-31) U/L ALT (0-31) U/L Alkaline Phosphatase (39-117) U/L Total Protein (6.5-8.0) g/dL Albumin (3.5-5.0) g/dL Lipase (8-78) U/L Urine Color Yellow Urine Appearance Clear Urine pH 6.0 (5.0-9.0) Ur Specific [place] 1.015 (1.005-1.025) Urine Protein 100 (2+) H (Neg-Trace) mg/dL Urine Glucose (UA) Negative (Negative) mg/dL Urine Ketones Negative (Negative) mg/dL Urine Blood Negative (Negative) Urine Nitrite Negative (Negative) Ur Leukocyte Esterase Trace H (Negative) Urine RBC 0-2 (0-2) /HPF Urine WBC 6-10 H (0-5) /HPF Ur Squamous Epith Cells 0-2 (0-2) /HPF Urine Bacteria None Seen (None Seen) Hyaline Casts 0-2 (0-2) /LPF Influenza Type A (PCR) (Negative) Influenza Type B (PCR) (Negative) RSV RNA Qual (PCR) (Negative) SARS-CoV-2 RNA (RT-PCR) (Negative) Discharge Plan Discharge Clinical Impression: Increased nausea and vomiting Patient Disposition: Admitted As Inpatient Prescriptions: No Action aspirin 81 mg tablet,delayed release (DR/EC) 81 mg PO DAILY Qty: 30 0RF atorvastatin 20 mg tablet 1 tab PO DAILY sertraline 100 mg tablet 1 tab PO DAILY pregabalin 75 mg capsule 1 cap PO BID allopurinol 100 mg tablet 1 tab PO DAILY albuterol sulfate 2.5 mg /3 mL (0.083 %) Solution For Nebulization 2.5 mg inhalation Q2H PRN (Reason: Shortness Of Breath/Wheezing) Qty: 1 0RF magnesium oxide 400 mg (241.3 mg magnesium) Tablet 800 mg PO BIDPC Qty: 60 0RF doxycycline hyclate 100 mg Tablet 100 mg PO Q12H Qty: 6 0RF levofloxacin 500 mg Tablet 500 mg PO Q48H Qty: 5 0RF
[2023-03-23 18:10] LABS: MANUAL DIFF FLAG NO
[2023-03-23] MEDS: 0.9 % Sodium Chloride 1,000 ML 999 ML IV ×2 (18:15→23:56)
[2023-03-23] MEDS: ondansetron HCL 4 MG/2 ML VIAL IVPUSH (18:15)
[2023-03-23 18:19] LABS: Basophils Percent Auto 0.2 % (0-2); Eosinophils Percent Auto 0.4 % (0-4); Hematocrit 26.3 % (37.0-47.0); Hemoglobin 8.3 g/dl (12.0-16.0); Imm Gran Abs Auto 0.05 X10*3/uL (0.00-0.03); Imm Gran Pct Auto 0.9 % (0.0-0.4); Lymphocytes Absolute Auto 0.6 X10*3/uL (1.2-4.9); Mean Corpuscular HGB Conc 31.6 g/dl (31.0-35.0); Mean Corpuscular Hemoglobin 28.6 pg (27.0-33.0); Mean Corpuscular Volume 90.7 fL (80.0-98.0); Mean Platelet Volume 9.9 fL (9.4-12.3); Monocytes Absolute Auto 0.4 X10*3/uL (0.1-1.2); Monocytes Percent Auto 6.8 % (2-11); Neutrophils Absolute Auto 4.3 x10*3/uL (2.0-8.3); Neutrophils Percent Auto 80.7 % (45-73); Platelet Count 251 X10*3/uL (160-400); Red Cell Distribution Width 14.4 % (11.0-16.0); White Blood Count 5.3 X10*3/uL (4.8-10.8)
[2023-03-23 18:24] LABS: Lactic Acid 0.8 mmol/L (0.5-2.0)
[2023-03-23 18:24] LABS: INTERNATIONAL NORM RATIO 0.8 (0.9-1.1); Prothrombin Time 10.1 SEC (11.1-13.3)
[2023-03-23 18:26] LABS: Partial Thromboplastin Time 28.1 SEC (26.0-36.4)
[2023-03-23 18:29] LABS: Alanine Aminotransferase 7 U/L (0-31); Albumin Level 3.9 g/dL (3.5-5.0); Alkaline Phosphatase 96 U/L (39-117); Anion Gap 19 (12-20); Aspartate Amino Transferase 23 U/L (5-31); Bilirubin Total 0.2 mg/dL (0.0-1.0); Blood Urea Nitrogen 21 mg/dL (9-16); Calcium 10.4 mg/dL (8.4-10.2); Carbon Dioxide 24 mmol/L (22-29); Chloride 101 mmol/L (96-108); Creatinine Clr Calc Pharmacy 31.5; Estimated Glomerular Filt Rate 43; Glucose Random 100 mg/dL (60-115); Lipase 27 U/L (8-78); Potassium 4.5 mmol/L (3.3-5.1); Sodium 139 mmol/L (135-145); Total Protein 7.3 g/dL (6.5-8.0)
[2023-03-23 18:55] LABS: Influenza A PCR NEGATIVE (Negative); Influenza B PCR NEGATIVE (Negative); Resp Syncy Virus RNA Qual PCR NEGATIVE (Negative); SARS COV2 PCR INHOUSE NEGATIVE (Negative)
[2023-03-23 19:46] VITALS: BP 167/98; PULSE 92; RESP 16; TEMP 37.1; O2SAT 93
--- NOTE | 2023-03-23 19:53 | MHC.EDTECH ---
this tech assumed care at 1900. PT vitals were taken. PT O2 was in between 85%-93% ultimately landing on about 90%. RN puts PT on 2LMP at this time.
[2023-03-23] MEDS: Metoclopramide HCl 10 MG/2 ML VIAL IVPUSH (20:03)
[2023-03-23] MEDS: LORazepam 2 MG/ML VIAL 1 MG IVPUSH (20:03)
--- NOTE | 2023-03-23 20:16 | PC.NURSE ---
Pt given IV ativan and reglan. Spoke with Daughter Sathish with pts permission for update.
[2023-03-23 20:29] LABS: Appearance Urine Clear; Color Urine Yellow; Glucose Urine UA Negative (Negative); Leukocyte Esterase Urine Trace (Negative); Nitrite Urine Negative (Negative); Specific Gravity - Urine 1.015 (1.005-1.025); UMIC TRIGGER UACC YES; Urine Blood Negative (Negative); Urine Ketones Negative (Negative); Urine Protein 100 (2+) mg/dL (Neg-Trace)
[2023-03-23 20:31] LABS: Bacteria Urine None Seen (None Seen); Hyaline Casts Urine 0-2 /LPF (0-2); RBC Urine 0-2 /HPF (0-2); Squamous Epithelial Cell Urine 0-2 /HPF (0-2); UACC Culture Trigger YES
[2023-03-23 22:58] VITALS: BP 168/89; PULSE 94; RESP 14; TEMP 36.9; O2SAT 96
[2023-03-23] MEDS: diphenhydrAMINE HCL 50 MG/ML VIAL IVPUSH (23:23)
--- NOTE | 2023-03-23 23:39 | ECG_ITS ---
Test Reason : tachicardia Blood Pressure : / mmHG Vent. Rate : 120 BPM Atrial Rate : 000 BPM P-R Int : 000 ms QRS Dur : 080 ms QT Int : 328 ms P-R-T Axes : 000 046 -20 degrees QTc Int : 463 ms Atrial fibrillation with rapid ventricular response Nonspecific ST abnormality Abnormal QRS-T angle, consider primary T wave abnormality Abnormal ECG When compared with ECG of 23-MAR-2023 18:12, Atrial fibrillation has replaced Sinus rhythm Referred By: Sharan Hernandez Electronically Signed By:ANDREINA DE LEON MD
[2023-03-23] MEDS: Haloperidol Lactate 5 MG/ML VIAL 2.5 MG IVPUSH (23:53)
[2023-03-23] MEDS: dilTIAZem HCL 50 MG/10 ML VIAL 10 MG IVPUSH (23:53)
[2023-03-24] VITALS (10 sets, daily range): BP systolic 121–185; BP diastolic 70–92; PULSE 74–88; RESP 14–30; TEMP 36.1–37.3; O2SAT 3–100; BMI 21.6
--- NOTE | 2023-03-24 | ECG_ITS ---
Test Reason : REPEAT Blood Pressure : / mmHG Vent. Rate : 076 BPM Atrial Rate : 076 BPM P-R Int : 148 ms QRS Dur : 086 ms QT Int : 402 ms P-R-T Axes : 038 011 012 degrees QTc Int : 452 ms Normal sinus rhythm with sinus arrhythmia Normal ECG When compared with ECG of 23-MAR-2023 23:41, Vent. rate has decreased BY 44 BPM prior ekg read as afib is actually sinus tachycardia Referred By: Ilan Wasserman Electronically Signed By:ANDREINA DE LEON MD
[2023-03-24] MEDS: Haloperidol Lactate 5 MG/ML VIAL 2.5 MG IVPUSH (01:52)
--- NOTE | 2023-03-24 03:19 | PC.NURSE ---
Patient reporting severe pain in ower back, attempted heating packs. notified. Awaiting ne orders. Will try to get CT again.
[2023-03-24] MEDS: LORazepam 2 MG/ML VIAL 1 MG IVPUSH (03:37)
--- NOTE | 2023-03-24 06:58 | PC.NURSE ---
Pt received, ativan, phenergan, benadryl, reglan and fluids throughout this shift.(see MAR) Pt restless and having lower vback pain, reported to no new orders at this time. Pt given warm packs and repositioned multiple times throughout the night. This RN spoke with daughter Sathish and she has been update on possible admission.
[2023-03-24] MEDS: Acetaminophen 325 MG TABLET 650 MG PO ×2 (07:45→17:49)
--- NOTE | 2023-03-24 08:25 | PC.NURSE ---
pt is moving around extensively in the stretcher, pt is incontinent of urine - pt cleaned up and clean hospital attire applied, pt appears to alert and oriented but very drowsy-pt answered question appropriately, reports having back pain that is chronic, 12/22 no vomiting noticed since this rn took over. pt's oxygen does dip down to 85-86 on room air, pt is not o2 dependent at baseline but currently is requiring 2l via nasal cannual. pt did pull out her iv another one placed in the right ac 20gage and wrapped up.
--- NOTE | 2023-03-24 08:52 | PHA.MEDREC ---
Pharmacy Consult ? Medication Reconciliation Pharmacy has completed the medication reconciliation. Spoke to patient's daughter Sathish at bedside and confirmed medication list.
--- NOTE | 2023-03-24 10:02 | PM.IMHP ---
History of Present Illness Date of Service: 03/24/23 Chief Complaint: nausea/vomiting and back pain This is an 82 year old female with a PMH of Spinal stenosis, CKD, SBO s/p ex-lap TESHA, prior bacteremia who presented to [facility] ED on 03/23/23 with complaints of nausea, vomiting and exacerbation of her chronic lower back pain. The history is obtained from the patient and patients daughter who is bedside. Pt reports that about 4-5 days prior to admission, the patient experienced a sore throat, which progressed to URI symptoms. Subsequently, she began having increasing nausea without vomiting. She had a decreased appetite. She denied fevers or chills. Denies any cough or shortness of breath. However, her symptoms continued and hence, she presented to the ED. Please refer to the ED notes for the full course, but briefly, it appears that initially with her symptoms of nausea and pain, a bowel etiology was the primary focus. Unfortunately, the pt was initially unable to tolerate a CT scan had required multiple sedatives for completion. CT scan shows not acute pathology. Her ED course was complicated by possible A. fib/flutter requiring IV cardizem push. She was noted to be increasing hypoxic with saturation dropping into the mid 80s. Admission has been requested. Review of Systems Review of Systems: negative except HPI [facility] Medical History Anxiety Chronic kidney disease COPD (chronic obstructive pulmonary disease) Gout Peripheral neuropathy Surgical History H/O vaginal hysterectomy History of right hip replacement Social History Unable to assess alcohol history related to: Unknown Alcohol intake: unknown Patient Tobacco Use Status: Never used Tobacco Use of substances other than those prescribed or required for medical reasons: Unknown Advance Directives: Yes Advance Directives on File: Yes Advance Directives Date on File: 03/02/22 service: No Meds Allergies Allergy/AdvReac Type Severity Reaction Status Date / Time Opioids - Morphine Analogues AdvReac Intermediate Confusion Verified 02/23/22 11:18 oxycodone AdvReac Hallucinati Verified 02/23/22 13:45 ons Home Medications Medication Instructions Recorded Confirmed Last Taken Type pregabalin 75 mg capsule 1 cap PO BID 02/02/22 03/24/23 03/23/23 History sertraline 100 mg tablet 1 tab PO DAILY 02/02/22 03/24/23 03/23/23 History acetaminophen 650 mg 650 mg PO QID PRN Pain 03/24/23 03/24/23 Unknown History tablet,extended release allopurinol 300 mg tablet 300 mg PO DAILY 03/24/23 03/24/23 03/23/23 History amlodipine 2.5 mg tablet 2.5 mg PO DAILY 03/24/23 03/24/23 03/23/23 History cholecalciferol (vitamin D3) 25 25 mcg PO DAILY 03/24/23 03/24/23 03/23/23 History mcg (1,000 unit) capsule (Vitamin D3) Physical Exam Vital Signs and Narrative: Vital Signs: Last Vital Signs Temp 98.4 F 03/24/23 02:16 Pulse 87 03/24/23 08:19 Resp 20 03/24/23 08:19 BP 159/78 H 03/24/23 08:19 Pulse Ox 86 L 03/24/23 08:25 O2 Del Method Room Air 03/24/23 08:25 O2 Flow Rate 2 03/24/23 04:07 BMI result Body Mass Index 22.7 Const: Other: Constitutional - drowsy but coverses with queuing. oriented x 3 Eyes - PERRLA, EOMI Cardiovascular - S1S2, RRR, No edema Respiratory - poor air entry bilaterally; no rales appreciated Gastrointestinal - NT / ND; +BS; No rebound or guarding - No CVA tenderness Extremities - no calf tenderness bilaterally, no swelling Musculoskeletal - Normal inspection, normal ROM Skin - Warm/Dry Neurological - Alert & oriented x3, No focal deficit Psychological - Appropriate affect Results Labs 03/23/23 18:05 03/23/23 18:05 Labs: Laboratory Results - last 24 hr 03/23/23 03/23/23 03/23/23 18:04 18:05 18:08 MCV 90.7 MCH 28.6 MCHC 31.6 RDW 14.4 Plt Count 251 MPV 9.9 Immature Gran % (Auto) 0.9 H Neut % (Auto) 80.7 H Lymph % (Auto) 11.0 L [place] % (Auto) 6.8 Eos % (Auto) 0.4 Baso % (Auto) 0.2 Lymph # (Auto) 0.6 L [place] # (Auto) 0.4 Eos # (Auto) 0.0 Baso # (Auto) 0.0 Abs Immat Gran (auto) 0.05 H Absolute Neuts (auto) 4.3 Absolute Nucleated RBC 0.000 Nucleated RBC % (auto) 0.0 PT 10.1 L INR 0.8 L APTT 28.1 Anion Gap 19 Estim Creat Clear Calc 31.5 Estimated GFR 43 Random Glucose 100 Lactic Acid 0.8 Calcium 10.4 H D Total Bilirubin 0.2 AST 23 ALT 7 Alkaline Phosphatase 96 Total Protein 7.3 Albumin 3.9 Lipase 27 Urine Color Urine Appearance Urine pH Ur Specific [place] Urine Protein Urine Glucose (UA) Urine Ketones Urine Blood Urine Nitrite Ur Leukocyte Esterase Urine RBC Urine WBC Ur Squamous Epith Cells Urine Bacteria Hyaline Casts Influenza Type A (PCR) NEGATIVE Influenza Type B (PCR) NEGATIVE RSV RNA Qual (PCR) NEGATIVE SARS-CoV-2 RNA (RT-PCR) NEGATIVE 03/23/23 20:22 MCV MCH MCHC RDW Plt Count MPV Immature Gran % (Auto) Neut % (Auto) Lymph % (Auto) [place] % (Auto) Eos % (Auto) Baso % (Auto) Lymph # (Auto) [place] # (Auto) Eos # (Auto) Baso # (Auto) Abs Immat Gran (auto) Absolute Neuts (auto) Absolute Nucleated RBC Nucleated RBC % (auto) PT INR APTT Anion Gap Estim Creat Clear Calc Estimated GFR Random Glucose Lactic Acid Calcium Total Bilirubin AST ALT Alkaline Phosphatase Total Protein Albumin Lipase Urine Color Yellow Urine Appearance Clear Urine pH 6.0 Ur Specific [place] 1.015 Urine Protein 100 (2+) H Urine Glucose (UA) Negative Urine Ketones Negative Urine Blood Negative Urine Nitrite Negative Ur Leukocyte Esterase Trace H Urine RBC 0-2 Urine WBC 6-10 H Ur Squamous Epith Cells 0-2 Urine Bacteria None Seen Hyaline Casts 0-2 Influenza Type A (PCR) Influenza Type B (PCR) RSV RNA Qual (PCR) SARS-CoV-2 RNA (RT-PCR) Imaging Radiologist's Impressions: Impressions Chest X-Ray 03/23/23 18:32 IMPRESSION: 1. No acute cardiopulmonary findings. 2. Significant chronic asymmetric elevation of the right hemidiaphragm. 3. Background suggesting some degree of air trapping and COPD/emphysema. 4. 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 KUB X-Ray 03/23/23 21:05 IMPRESSION: 1. Nonobstructive bowel gas pattern. 2. Asymmetric elevation of the right hemidiaphragm with equivocal airspace opacities in the right lower lobe. Recommend correlation with a chest radiograph. Abdomen/Pelvis CT 03/24/23 04:10 IMPRESSION: Right lung base consolidation with elevation of the right hemidiaphragm likely scarring and/or chronic atelectasis. No acute intra-abdominal process. Fleischner guidelines were followed. Assessment and Plan (1) Acute respiratory failure with hypoxia: Status: Acute Plan Spinal stenosis, CKD, SBO s/p ex-lap TESHA, prior bacteremia who presented to [facility] with nausea and vomiting. Her ED course has been complicated by hypoxia, increasing downsiness and possible a. fib/flutter. She is requiring 2-3L of supplemental oxygen. Hence, will be admitted for further care. 1. Acute respiratory failure with hypoxia CXR without pneumonia; CT abd/pelvis showing RLL conslidation, but likely old clnically the patient does not have signs and symtpoms of pneumonia, hence will hold of antibitoics. Hyopxia secondary to sedation. Continue monitoring 2. Nause and vomiting CT without acute findings; however, noted stool throughout additionally, could be related to recent viral illness supportive care diet as tolerated 3. Question of A. fib/flutter noted while in ED; EKG reviewed Unclear if truly was a. fib/flutter will have cardiology evaluate monitor on telemetry 4. Anemia chronic, appears toe near baseline Holding sedative meds for now. Reinitiate when appropriate. Full Code DVT pptx, high risk, will use lovenox Given her new onset a. fib, respiratory failure and concurrent nausea/vomiting requiring supplemtal oxygen, IVF fluids, specialty consultation-- anticipate her care to span at least 2 midnights and therefore, will be admitted as inpatient. Quality Stroke Does the patient have a stroke diagnosis?: No VTE Prior VTE?: No VTE Risk Level:: Medical - moderate - high VTE Device Contraindication: Treatment Not Indicated VTE Drug Contraindication: N/A - Med Ordered
[2023-03-24 10:52] LABS: Venous Blood Gas Refer to POC result
[2023-03-24 10:53] LABS: VBG Base Excess 2.6 mmol/L; VBG HCO3 28 mmol/L (22-26); VBG pCO2 47 mmHg; VBG pH 7.38 (7.32-7.43); VBG pO2 55 mmHg
[2023-03-24] MEDS: allopurinoL 300 MG TABLET PO (10:55)
[2023-03-24] MEDS: Cholecalciferol (Vitamin D3) 25 MCG TABLET PO (10:55)
[2023-03-24] MEDS: Aspirin Enteric Coated 81 MG TABLET.DR PO (10:55)
[2023-03-24] MEDS: amLODIPine Besylate 2.5 MG TABLET PO (10:55)
[2023-03-24] MEDS: Enoxaparin Sodium 40 MG/0.4 ML SYRINGE SUBCUT (10:56)
[2023-03-24] MEDS: Lactated Ringers 1,000 ML 80 ML IVCONT (11:03)
[2023-03-24 11:13] LABS: Anion Gap 15 (12-20); Blood Urea Nitrogen 16 mg/dL (9-16); Carbon Dioxide 24 mmol/L (22-29); Chloride 103 mmol/L (96-108); Creatinine Clr Calc Pharmacy 35.5; Estimated Glomerular Filt Rate 49; Glucose Random 112 mg/dL (60-115); Potassium 3.8 mmol/L (3.3-5.1); Sodium 138 mmol/L (135-145)
--- NOTE | 2023-03-24 11:58 | PC.NURSE ---
given fresh sheets and cleaned for urine incontinence. pt confused and pulling at purewick- removed. turned/positioned. pillow under knees. no pain. intermittent nausea. no vomiting. denies sob/chest pain/dizziness. MD Wasserman notified BP 170/76.
--- NOTE | 2023-03-24 14:00 | PC.NURSE ---
repositioned/boosted again. declined sandwich. ate a few bites of pudding. drank gingerale. pillow placed under legs/arm
--- NOTE | 2023-03-24 15:36 | PC.NURSE ---
calling report to lance mcgovern as pt has a bed. no answer after two calls. notified in [email or web address].
--- NOTE | 2023-03-24 15:42 | PC.NURSE ---
denies pain. iv fluids running well. PIV c/d/i. repositioned w pillows, given swaeter, offered po fluids. checked pad. no urine. call ramirez in reach. attempting report again
--- NOTE | 2023-03-24 15:44 | PC.NURSE ---
no answer for report.
--- NOTE | 2023-03-24 15:54 | PC.NURSE ---
report delivered. contacting [facility]
[2023-03-25] VITALS (8 sets, daily range): BP systolic 70–167; BP diastolic 40–90; PULSE 80–106; RESP 18–20; TEMP 36.4–37.1; O2SAT 88–100
--- NOTE | 2023-03-25 | ECG_ITS ---
Test Reason : tachycardia Blood Pressure : / mmHG Vent. Rate : 099 BPM Atrial Rate : 099 BPM P-R Int : 132 ms QRS Dur : 080 ms QT Int : 364 ms P-R-T Axes : 034 -08 -13 degrees QTc Int : 467 ms Sinus rhythm with Premature supraventricular complexes Nonspecific T wave abnormality Abnormal ECG When compared with ECG of 24-MAR-2023 10:42, Premature supraventricular complexes are now Present Heart rate has increased Referred By: Tea Kelly Electronically Signed By:ANDREINA DE LEON MD
[2023-03-25] MEDS: Lactated Ringers 1,000 ML 80 ML IVCONT ×2 (01:23→11:41)
[2023-03-25 06:37] LABS: Hematocrit 30.7 % (37.0-47.0); Hemoglobin 9.3 g/dl (12.0-16.0); Mean Corpuscular HGB Conc 30.3 g/dl (31.0-35.0); Mean Corpuscular Hemoglobin 27.4 pg (27.0-33.0); Mean Corpuscular Volume 90.6 fL (80.0-98.0); Mean Platelet Volume 9.6 fL (9.4-12.3); Platelet Count 264 X10*3/uL (160-400); Red Blood Count 3.39 X10*6/uL (4.20-5.50); White Blood Count 8.7 X10*3/uL (4.8-10.8)
[2023-03-25 06:56] LABS: Anion Gap 16 (12-20); Blood Urea Nitrogen 12 mg/dL (9-16); Calcium 8.9 mg/dL (8.4-10.2); Carbon Dioxide 27 mmol/L (22-29); Chloride 97 mmol/L (96-108); Creatinine Clr Calc Pharmacy 45.3; Estimated Glomerular Filt Rate > 60; Glucose Random 98 mg/dL (60-115); Potassium 3.4 mmol/L (3.3-5.1); Sodium 137 mmol/L (135-145)
[2023-03-25] MEDS: Aspirin Enteric Coated 81 MG TABLET.DR PO (08:38)
[2023-03-25] MEDS: amLODIPine Besylate 2.5 MG TABLET PO (08:38)
[2023-03-25] MEDS: Cholecalciferol (Vitamin D3) 25 MCG TABLET PO (08:38)
[2023-03-25] MEDS: allopurinoL 300 MG TABLET PO (08:38)
[2023-03-25] MEDS: Acetaminophen 325 MG TABLET 650 MG PO ×2 (08:43→17:15)
--- NOTE | 2023-03-25 11:35 | P.PNIM_ITS ---
Subjective Subjective Date of Service: 03/25/23 Review of Systems Follow up resp failure doing Physical Exam 2 Vital Signs: Vital Signs: Last Vital Signs Temp 98.7 F 03/25/23 11:25 Pulse 100 03/25/23 11:25 Resp 20 03/25/23 11:25 BP 70/40 L 03/25/23 11:25 Pulse Ox 98 03/25/23 11:25 O2 Del Method Nasal Cannula 03/25/23 11:25 O2 Flow Rate 3 03/25/23 11:25 BMI result Body Mass Index 21.6 Appearing in no acute distress lung sounds are clear to auscultation heart regular rate rhythm, clear S1, S2 positive bowel sounds, abdomen is soft, nontender neuro patient is alert x3, no focal deficits Objective Data Active Medications Acetaminophen (Acetaminophen 325 Mg Tablet) 650 mg PO Q6H PRN PRN Reason: pain or fever Last Admin: 03/25/23 08:43 Dose: 650 mg Documented By: JEANE Allopurinol (Allopurinol 300 Mg Tablet) 300 mg PO DAILY [facility] Last Admin: 03/25/23 08:38 Dose: 300 mg Documented By: JEANE Amlodipine Besylate (Amlodipine Besylate 2.5 Mg Tablet) 2.5 mg PO DAILY [facility]; Protocol Last Admin: 03/25/23 08:38 Dose: 2.5 mg Documented By: JEANE Aspirin (Aspirin Enteric Coated 81 Mg Tablet.Dr) 81 mg PO DAILY [facility] Last Admin: 03/25/23 08:38 Dose: 81 mg Documented By: JEANE Enoxaparin Sodium (Enoxaparin Sodium 40 Mg/0.4 Ml Syringe) 40 mg SUBCUT Q24H [facility] Last Admin: 03/24/23 10:56 Dose: 40 mg Documented By: SHANNA Lactated Ringer's (Lr) 1,000 mls @ 80 mls/hr IVCONT .[id number] [facility] Last Admin: 03/25/23 01:23 Dose: 80 mls/hr Documented By: MARK Ondansetron HCl (Ondansetron Hcl 4 Mg/2 Ml Vial) 4 mg IVPUSH Q8H PRN PRN Reason: Nausea and Vomiting Sodium Chloride (0.9 % Sodium Chloride Flush 3 Ml Syringe) 3 ml IVFLUSH QSHIFT [facility] Last Admin: 03/25/23 08:35 Dose: Not Given Documented By: JEANE Non-Admin Reason: IV Running Vitamin D (Cholecalciferol (Vitamin D3) 25 Mcg Tablet) 25 mcg PO DAILY [facility] Last Admin: 03/25/23 08:38 Dose: 25 mcg Documented By: JEANE Labs 03/25/23 06:06 03/25/23 06:06 Labs: Laboratory Results - last 24 hr 03/25/23 06:06 MCV 90.6 MCH 27.4 MCHC 30.3 L RDW 14.0 Plt Count 264 MPV 9.6 Absolute Nucleated RBC 0.000 Nucleated RBC % (auto) 0.0 Anion Gap 16 Estim Creat Clear Calc 45.3 Estimated GFR > 60 Random Glucose 98 Calcium 8.9 Microbiology Microbiology Results: Microbiology 03/23/23 Unknown Urine Culture - Final Urine clean catch - Urine mar top Assessment and Plan (1) Increased nausea and vomiting: Status: Acute Plan 82 year old women with hx of Spinal stenosis, CKD, SBO s/p ex-lap TESHA, prior bacteremia who presented to [facility] with nausea and vomiting. Her ED course has been complicated by hypoxia, increasing downsiness and possible a. fib/flutter. She is requiring 2-3L of supplemental oxygen. Hence, will be admitted for further care. Acute respiratory failure with hypoxia. Resolved CXR without pneumonia; CT abd/pelvis showing RLL consolidation, but likely old clinically the patient does not have signs and symptoms of pneumonia, hence will hold of antibiotics Hypoxia secondary to sedation. Continue monitoring sinus tach with PVC. monitor close on telemetry if continues consider cardio consult hypomagnesemia repleted with IV and po recheck in the am Hypotension one episode. asymptomatic monitor blood pressure closely Nausea and vomiting. Resolved CT without acute findings; however, noted stool throughout additionally, could be related to recent viral illness supportive care diet as tolerated Anemia chronic, appears toe near baseline chronic back pain lidocaine patch Full Code Attending Dr. Baeza DVT pptx, high risk, will use lovenox Given her new onset a. fib, respiratory failure and concurrent nausea/vomiting requiring supplemtal oxygen, IVF fluids, specialty consultation-- anticipate her care to span at least 2 midnights and therefore, will be admitted as inpatient. Quality Stroke Does the patient have a stroke diagnosis?: No VTE Prior VTE?: No VTE Risk Level:: Medical - moderate - high VTE Device Contraindication: Treatment Not Indicated VTE Drug Contraindication: N/A - Med Ordered
[2023-03-25] MEDS: Enoxaparin Sodium 40 MG/0.4 ML SYRINGE SUBCUT (11:38)
[2023-03-25] MEDS: Lactated Ringers 500 ML IVCONT (11:57)
[2023-03-25] MEDS: Lidocaine 4 % Patch ADH..PATCH 1 PATCH TRANSDERMA (11:58)
[2023-03-25 14:06] LABS: Magnesium 1.2 mg/dL (1.6-2.6)
--- NOTE | 2023-03-25 14:36 | MHC.CM.PN ---
IMM 03/25. Pt lives at home alone, self-care, she has a cleaning lady and her daughters come check on her frequently, she uses a walker at times. Returning home is the goal, pts daughter to transport her home. HCP on file and verified. PCP: Dr. Ramsey Gooden
[2023-03-25] MEDS: Magnesium Sulfate/H2O 2 GM/50 ML PIGGYBACK IV (15:09)
[2023-03-25] MEDS: Magnesium Oxide 400 MG TABLET PO (17:14)
--- NOTE | 2023-03-25 18:39 | PC.NURSE ---
0920 patient heart rate 140-150's with frequent PAC's on tele, OOB to chair per pt no chest pain, SOB asymptomatic at time. Kirsten Kelly PRICER BAGGER notified, EKG competed per order. Heart rate back down into 90's shorly after. 1130 BP 70/40 manual Map of 53 remains up in chair asymptomatic. 500ml LR bolus given with good results up to 82/45 then 114 systolic. 1245 pt again HR into 140's with more frequent PVC's PRICER BAGGER notified patient placed back to bed. Asymptomatic. Mag level critical at 1.2. IV 2G Mag given as well as oral. Will continue to monitor and report changes
[2023-03-25] MEDS: polyethylene glycoL 3350 17 GM POWD.PACK PO (20:20)
[2023-03-25] MEDS: Melatonin 3 MG TABLET 6 MG PO (20:20)
[2023-03-25] MEDS: Pregabalin 75 MG CAPSULE PO (20:20)
[2023-03-25] MEDS: 0.9 % Sodium Chloride Flush 3 ML SYRINGE IVFLUSH (20:22)
[2023-03-26] MEDS: Lactated Ringers 1,000 ML 80 ML IVCONT (01:06)
[2023-03-26 03:05] VITALS: BP 112/63; PULSE 88; RESP 18; TEMP 37.1; O2SAT 98
--- NOTE | 2023-03-26 06:33 | PC.NURSE ---
Assumed care of patient midnight 03/26. See shift assessments for full details. Pt retaining urine this morning. Only able to void 70ml cyu. Post-void residual bladder scan showed 999ml. Pt denies dysuria or pelvic pressure or urge. Covering Dr. Gill notified. Awaiting orders at this time.
[2023-03-26 06:34] LABS: Anion Gap 14 (12-20); Blood Urea Nitrogen 26 mg/dL (9-16); Calcium 8.4 mg/dL (8.4-10.2); Carbon Dioxide 28 mmol/L (22-29); Chloride 99 mmol/L (96-108); Estimated Glomerular Filt Rate 21; Glucose Random 100 mg/dL (60-115); Magnesium 1.9 mg/dL (1.6-2.6); Potassium 3.7 mmol/L (3.3-5.1); Sodium 137 mmol/L (135-145)
--- NOTE | 2023-03-26 06:38 | PC.NURSE ---
Dr. Gill notified of BUN/Cr back this morning, increased from prior.
[2023-03-26 07:58] VITALS: BP 157/94; PULSE 81; RESP 20; TEMP 36.6; O2SAT 100
[2023-03-26] MEDS: Acetaminophen 325 MG TABLET 650 MG PO ×2 (08:36→16:43)
[2023-03-26] MEDS: Pregabalin 75 MG CAPSULE PO ×2 (08:36→20:46)
[2023-03-26] MEDS: Sertraline HCL 100 MG TABLET PO (08:36)
[2023-03-26] MEDS: allopurinoL 300 MG TABLET PO (08:36)
[2023-03-26] MEDS: Magnesium Oxide 400 MG TABLET PO ×2 (08:36→16:43)
[2023-03-26] MEDS: Aspirin Enteric Coated 81 MG TABLET.DR PO (08:36)
[2023-03-26] MEDS: Cholecalciferol (Vitamin D3) 25 MCG TABLET PO (08:36)
[2023-03-26] MEDS: Lidocaine 4 % Patch ADH..PATCH 1 PATCH TRANSDERMA (08:41)
[2023-03-26] MEDS: 0.9 % Sodium Chloride 500 ML 250 ML IVCONT (08:41)
--- NOTE | 2023-03-26 09:53 | HO.PM.IMPN ---
Subjective Subjective Date of Service: 03/26/23 Review of Systems Follow up resp failure resp status is improved. back pain Physical Exam Vital Signs: Vital Signs: Last Vital Signs Temp 97.9 F 03/26/23 07:58 Pulse 81 03/26/23 07:58 Resp 20 03/26/23 07:58 BP 157/94 H 03/26/23 07:58 Pulse Ox 100 03/26/23 07:58 O2 Del Method Nasal Cannula 03/26/23 07:58 O2 Flow Rate 2 03/26/23 07:58 BMI result Body Mass Index 21.6 Appearing in no acute distress lung sounds are clear to auscultation heart regular rate rhythm, clear S1, S2 positive bowel sounds, abdomen is soft, nontender neuro patient is alert x3, no focal deficits Objective Data Active Medications Acetaminophen (Acetaminophen 325 Mg Tablet) 650 mg PO Q6H PRN PRN Reason: pain or fever Last Admin: 03/26/23 08:36 Dose: 650 mg Documented By: JEANE Allopurinol (Allopurinol 300 Mg Tablet) 300 mg PO DAILY [facility] Last Admin: 03/26/23 08:36 Dose: 300 mg Documented By: JEANE Amlodipine Besylate (Amlodipine Besylate 2.5 Mg Tablet) 2.5 mg PO DAILY [facility]; Protocol Last Admin: 03/25/23 08:38 Dose: 2.5 mg Documented By: JEANE Aspirin (Aspirin Enteric Coated 81 Mg Tablet.Dr) 81 mg PO DAILY [facility] Last Admin: 03/26/23 08:36 Dose: 81 mg Documented By: JEANE Lidocaine (Lidocaine 4 % Patch Adh..Patch) 1 patch TRANSDERMA DAILY [facility]; Protocol Last Admin: 03/26/23 08:41 Dose: 1 patch Documented By: JEANE Magnesium Oxide (Magnesium Oxide 400 Mg Tablet) 400 mg PO BIDPC [facility] Last Admin: 03/26/23 08:36 Dose: 400 mg Documented By: JEANE Melatonin (Melatonin 3 Mg Tablet) 6 mg PO BEDTIME PRN PRN Reason: Insomnia Last Admin: 03/25/23 20:20 Dose: 6 mg Documented By: MARIAM Ondansetron HCl (Ondansetron Hcl 4 Mg/2 Ml Vial) 4 mg IVPUSH Q8H PRN PRN Reason: Nausea and Vomiting Pregabalin (Pregabalin 75 Mg Capsule) 75 mg PO BID [facility] Last Admin: 03/26/23 08:36 Dose: 75 mg Documented By: JEANE Sertraline HCl (Sertraline Hcl 100 Mg Tablet) 100 mg PO DAILY [facility] Last Admin: 03/26/23 08:36 Dose: 100 mg Documented By: JEANE Sodium Chloride (0.9 % Sodium Chloride Flush 3 Ml Syringe) 3 ml IVFLUSH QSHIFT [facility] Last Admin: 03/26/23 08:33 Dose: Not Given Documented By: JEANE Non-Admin Reason: IV Running Vitamin D (Cholecalciferol (Vitamin D3) 25 Mcg Tablet) 25 mcg PO DAILY [facility] Last Admin: 03/26/23 08:36 Dose: 25 mcg Documented By: JEAEN Labs 03/25/23 06:06 03/26/23 05:51 Labs: Laboratory Results - last 24 hr 03/25/23 03/26/23 06:06 05:51 Hold Purple Top SEE NOTE Anion Gap 14 Estim Creat Clear Calc 17.0 Estimated GFR 21 Random Glucose 100 Calcium 8.4 Magnesium 1.2 L* 1.9 Microbiology Microbiology Results: Microbiology 03/23/23 Unknown Urine Culture - Final Urine clean catch - Urine mar top Assessment and Plan (1) Increased nausea and vomiting: Status: Acute Plan 82 year old women with hx of Spinal stenosis, CKD, SBO s/p ex-lap TESHA, prior bacteremia who presented to [facility] ED with nausea and vomiting. Her ED course has been complicated by hypoxia, increasing downsiness and possible a. fib/flutter. She is requiring 2-3L of supplemental oxygen. Hence, will be admitted for further care. JONES ? related to urinary retention vs hypotension IV fluids renal us without obstruction Urinary retention unknown etiology at this time bladder scan Qshift, st cath for >than 300ml start flomax 0.4mg daily Hypotension. Resolved one episode. asymptomatic amlodipine on hold monitor blood pressure closely sinus tach with PVC. monitor close on telemetry if continues consider cardio consult start low dose metoprolol 12.5mg BID Acute respiratory failure with hypoxia. Resolved CXR without pneumonia; CT abd/pelvis showing RLL consolidation, but likely old clinically the patient does not have signs and symptoms of pneumonia, hence will hold of antibiotics Hypoxia secondary to sedation. Continue monitoring hypomagnesemia. resolved repleted with IV and po continue oral repletion for maintenance Nausea and vomiting. Resolved CT without acute findings; however, noted stool throughout additionally, could be related to recent viral illness supportive care diet as tolerated Anemia chronic, appears toe near baseline chronic back pain lidocaine patch Full Code Attending Dr. Baeza DVT pptx, high risk, stop lovenox due to JONES, change to heparin Given her new onset a. fib, respiratory failure and concurrent nausea/vomiting requiring supplemtal oxygen, IVF fluids, specialty consultation-- anticipate her care to span at least 2 midnights and therefore, will be admitted as inpatient. Quality Stroke Does the patient have a stroke diagnosis?: No VTE Prior VTE?: No VTE Risk Level:: Medical - moderate - high VTE Device Contraindication: Treatment Not Indicated VTE Drug Contraindication: N/A - Med Ordered
[2023-03-26 10:48] VITALS: BP 100/52; PULSE 77; RESP 20; TEMP 36.3; O2SAT 97
[2023-03-26] MEDS: Heparin Sodium,Porcine 5,000 UNIT/ML VIAL 5000 UNIT SUBCUT ×2 (11:14→20:45)
[2023-03-26] MEDS: Tamsulosin HCL 0.4 MG CAPSULE PO (11:14)
[2023-03-26 15:27] VITALS: BP 90/50; PULSE 98; RESP 18; TEMP 37; O2SAT 96
[2023-03-26 16:42] LABS: Creatinine Clr Calc Pharmacy 14.5; Estimated Glomerular Filt Rate 17
[2023-03-26] MEDS: 0.9 % Sodium Chloride 1,000 ML 100 ML IVCONT (17:02)
[2023-03-26 19:13] VITALS: BP 95/51; PULSE 91; RESP 18; TEMP 36.3; O2SAT 99
[2023-03-26] MEDS: Melatonin 3 MG TABLET 6 MG PO (20:45)
[2023-03-26] MEDS: 0.9 % Sodium Chloride Flush 3 ML SYRINGE IVFLUSH (20:46)
[2023-03-26 23:55] VITALS: BP 121/56; PULSE 81; RESP 18; TEMP 36.8; O2SAT 98
[2023-03-27] MEDS: 0.9 % Sodium Chloride 1,000 ML 100 ML IVCONT (03:37)
[2023-03-27 03:44] VITALS: BP 122/58; PULSE 80; RESP 18; TEMP 37.1; O2SAT 97
[2023-03-27 04:41] LABS: Appearance Urine Clear; Color Urine Yellow; Glucose Urine UA Negative (Negative); Leukocyte Esterase Urine Trace (Negative); Nitrite Urine Negative (Negative); PH 5.5 (5.0-9.0); Specific Gravity - Urine 1.015 (1.005-1.025); UMIC TRIGGER UACC YES; Urine Blood Moderate (2+) (Negative); Urine Ketones Trace mg/dL (Negative); Urine Protein 30 (1+) mg/dL (Neg-Trace)
[2023-03-27 04:46] LABS: Bacteria Urine None Seen (None Seen); Squamous Epithelial Cell Urine 0-2 /HPF (0-2); WBC Urine 0-5 /HPF (0-5)
--- NOTE | 2023-03-27 06:02 | PC.NURSE ---
Assumed care of patient 19:00 (03/26). Patient had urinary retention overnight. Bladder scan done in evening showed 91ml, patient denied urge or pelvic pressure and discomfort. Bladder scan reassess done as follow-up this morning for continued retention showed 494ml. Patient verbalized urge to void but unable to on attempt. Covering Dr. Gill notified with orders to place indwelling catheter. Catheter placed with 500ml immediate urine output, odorless cyu. Meticulous pericare provided. U/a and Ucx sent as ordered.
[2023-03-27 07:39] VITALS: BP 128/63; PULSE 70; RESP 20; TEMP 36.3; O2SAT 100
[2023-03-27] MEDS: Acetaminophen 325 MG TABLET 650 MG PO (08:27)
[2023-03-27] MEDS: Sertraline HCL 100 MG TABLET PO (08:28)
[2023-03-27] MEDS: allopurinoL 300 MG TABLET PO (08:28)
[2023-03-27] MEDS: Cholecalciferol (Vitamin D3) 25 MCG TABLET PO (08:28)
[2023-03-27] MEDS: Pregabalin 75 MG CAPSULE PO (08:28)
[2023-03-27] MEDS: Aspirin Enteric Coated 81 MG TABLET.DR PO (08:28)
[2023-03-27] MEDS: Tamsulosin HCL 0.4 MG CAPSULE PO (08:28)
[2023-03-27] MEDS: Lidocaine 4 % Patch ADH..PATCH 1 PATCH TRANSDERMA (08:34)
[2023-03-27] MEDS: Heparin Sodium,Porcine 5,000 UNIT/ML VIAL 5000 UNIT SUBCUT (08:45)
[2023-03-27 08:46] LABS: Anion Gap 13 (12-20); Blood Urea Nitrogen 30 mg/dL (9-16); Calcium 8.4 mg/dL (8.4-10.2); Carbon Dioxide 26 mmol/L (22-29); Chloride 104 mmol/L (96-108); Creatinine Clr Calc Pharmacy 18.5; Estimated Glomerular Filt Rate 23; Glucose Random 95 mg/dL (60-115); Potassium 4.1 mmol/L (3.3-5.1); Sodium 139 mmol/L (135-145)
[2023-03-27 12:00] VITALS: BP 106/58; PULSE 83; RESP 20; TEMP 36.2
[2023-03-27 12:09] VITALS: BMI 21.6
--- NOTE | 2023-03-27 12:13 | MHC.CLN ---
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
--- NOTE | 2023-03-27 13:36 | PM.DS ---
DS: Providers Provider Date of Service: 03/27/23 Date of admission: 03/24/23 09:59 Primary care physician: Ramsey Gooden MD Consults: 03/26/23 17:02 Consult to Nephrology Routine Consulting Provider: [facility] Reason for consultation: jones DS: Diagnosis Discharge Diagnosis (1) Increased nausea and vomiting: Status: Acute DS: Summary Hospital Course Hospital Course: This is an 82 year old female with a PMH of Spinal stenosis, CKD, SBO s/p ex-lap TESHA, prior bacteremia who [place] [facility] 03[place]23[place]23 with complaints of nausea, vomiting and exacerbation of her chronic lower back pain. The history is obtained from the patient and patients daughter who is bedside. Pt reports that about 4-5 days prior to admission, the patient experienced a sore throat, which progressed to URI symptoms. Subsequently, she began having increasing nausea without vomiting. She had a decreased appetite. She denied fevers or chills. Denies any cough or shortness of breath. However, her symptoms continued and hence, she presented to the ED. Please refer to the ED notes for the full course, but briefly, it appears that initially with her symptoms of nausea and pain, a bowel etiology was the primary focus. Unfortunately, the pt was initially unable to tolerate a CT scan had required multiple sedatives for completion. CT scan shows not acute pathology. Her ED course was complicated by possible A. fib/flutter requiring IV cardizem push. She was noted to be increasing hypoxic with saturation dropping into the mid 80s. Admission has been requested. 82-year-old woman treated for nausea and vomiting likely secondary to recent URI that caused a viral gastroenteritis. She was also noted to have an episode of acute respiratory failure with hypoxia without evidence of pneumonia but likely rather secondary to sedation. This did resolve fairly quickly. Her hospital course was also complicated with episodes of sinus tachycardia with PVCs possibly secondary to hypomagnesemia. Her magnesium was repleted and she did not have any further episodes of this. She was started on metoprolol 12.5 mg twice daily but her heart rate remained below 100 and blood pressure on the softer side so this was discontinued. Her amlodipine was also discontinued due to low blood pressures and in fact she had an episode of hypotension with blood pressure of around 70/60 and the following day seem to develop JONES. Her creatinine had been 0.4 and repeat was 2.24. She was treated with IV fluids and her creatinine did trend down to 2.05. She was also found to have urinary retention with approximately a Liter of urine found on bladder scan, she was bladder scanned every shift and unfortunately unable to urinate after at least over 6 hours and Yadav catheter was placed. She did not want a Yadav catheter and wanted it to be removed which it was this morning. However, she was seen by the sheet rock layer who thought it would be best if she had a Yadav catheter placed but the patient declined. The patient's daughter Sathish, MARINO Healyane and myself present during this discussion, patient was made aware that placing a Yadav catheter would be in her best interest as she has not been able to urinate on her own but she reported that she would rather not and she would be more comfortable without it and she will try to urinate on her own, she will let the visiting nurse no if she is not able to urinate on her own. She was told that if she was unable to urinate within 24 hours she would need to urgently contact her primary care provider or return to the emergency department. Retention of urine could result in worsening kidney function and encephalopathy. She was started on Flomax for urinary retention. She will need a BMP in 2 days to reassess kidney function. Anemia. Chronic. Above transfusion limited Chronic pain. Supportive care Time Attestation Discharge coordination time: Greater than 30 minutes Quality: Safe Use of Opioids Does Pt have an Active Cancer Diagnosis on the Problem List?: No Quality: Stroke Does the patient have a stroke diagnosis?: No Physical Exam Vital Signs: Vital Signs: Last Vital Signs Temp 97.2 F 03/27/23 12:00 Pulse 83 03/27/23 12:00 Resp 20 03/27/23 12:00 BP 106/58 L 03/27/23 12:00 Pulse Ox 100 03/27/23 07:39 O2 Del Method Nasal Cannula 03/27/23 07:39 O2 Flow Rate 2 03/27/23 07:39 BMI result Body Mass Index 21.6 Appearing in no acute distress head is normocephalic atraumatic eyes pupils are PERRLA sclera is anicteric mouth throat mucous membranes are intact and moist neck is supple no lymphadenopathy, no JVD noted lung sounds are clear to auscultation heart regular rate rhythm, clear S1, S2 positive bowel sounds, abdomen is soft, nontender neuro patient is alert x3, no focal deficits DS: Data Data Completed and Pending Completed studies during hospitalization [Text1]: Procedures Drainage of Stomach, Pylorus with Drainage Device, Via Natural or Artificial Opening Endoscopic (02/01/22) Introduction of Vasopressor into Peripheral Vein, Percutaneous Approach (02/01/22) Release Ileum, Open Approach (02/01/22) Respiratory Ventilation, Less than 24 Consecutive Hours (02/01/22) Transfusion of Nonautologous Red Blood Cells into Peripheral Vein, Percutaneous Approach (02/01/22) Labs on day of discharge: Laboratory Results - last 24 hr 03/26/23 03/27/23 03/27/23 16:18 04:10 08:23 Sodium 139 Potassium Chloride Carbon Dioxide Anion Gap BUN Creatinine 2.63 H Estim Creat Clear Calc 14.5 Estimated GFR 17 Random Glucose Calcium Urine Color Yellow Urine Appearance Clear Urine pH 5.5 Ur Specific [place] 1.015 Urine Protein 30 (1+) H Urine Glucose (UA) Negative Urine Ketones Trace Urine Blood Moderate (2+) H Urine Nitrite Negative Ur Leukocyte Esterase Trace H Urine RBC 11-20 H Urine WBC 0-5 Ur Squamous Epith Cells 0-2 Urine Bacteria None Seen Hyaline Casts 3-5 03/27/23 03/27/23 03/27/23 08:23 08:23 08:23 Sodium Cancelled Potassium 4.1 Cancelled Chloride 104 Cancelled Carbon Dioxide 26 Anion Gap BUN Creatinine Estim Creat Clear Calc Estimated GFR Random Glucose Calcium Urine Color Urine Appearance Urine pH Ur Specific [place] Urine Protein Urine Glucose (UA) Urine Ketones Urine Blood Urine Nitrite Ur Leukocyte Esterase Urine RBC Urine WBC Ur Squamous Epith Cells Urine Bacteria Hyaline Casts 03/27/23 03/27/23 03/27/23 08:23 08:23 08:23 Sodium Potassium Chloride Carbon Dioxide Cancelled Anion Gap 13 Cancelled BUN 30 H Cancelled Creatinine 2.05 H Estim Creat Clear Calc Estimated GFR Random Glucose Calcium Urine Color Urine Appearance Urine pH Ur Specific [place] Urine Protein Urine Glucose (UA) Urine Ketones Urine Blood Urine Nitrite Ur Leukocyte Esterase Urine RBC Urine WBC Ur Squamous Epith Cells Urine Bacteria Hyaline Casts 03/27/23 03/27/23 03/27/23 08:23 08:23 08:23 Sodium Potassium Chloride Carbon Dioxide Anion Gap BUN Creatinine Cancelled Estim Creat Clear Calc 18.5 Cancelled Estimated GFR 23 Cancelled Random Glucose 95 Calcium Urine Color Urine Appearance Urine pH Ur Specific [place] Urine Protein Urine Glucose (UA) Urine Ketones Urine Blood Urine Nitrite Ur Leukocyte Esterase Urine RBC Urine WBC Ur Squamous Epith Cells Urine Bacteria Hyaline Casts 03/27/23 03/27/23 08:23 08:23 Sodium Potassium Chloride Carbon Dioxide Anion Gap BUN Creatinine Estim Creat Clear Calc Estimated GFR Random Glucose Cancelled Calcium 8.4 Cancelled Urine Color Urine Appearance Urine pH Ur Specific [place] Urine Protein Urine Glucose (UA) Urine Ketones Urine Blood Urine Nitrite Ur Leukocyte Esterase Urine RBC Urine WBC Ur Squamous Epith Cells Urine Bacteria Hyaline Casts Discharge Plan Discharge Anticipated Discharge Date/Time: 03/27/23 13:23 Patient Disposition: Home Health Service Discharge Diagnosis: JONES Urinary retention Yadav catheter Hypotension Sinus tachycardia with PVCs Acute respiratory failure with hypoxia Hypomagnesemia Viral gastroenteritis with nausea and vomiting Referrals: Ramsey Gooden MD [Primary Care Provider] - 1 Week Cleveland Herman MD [Physician] - None ( may follow up for further management of kidney disease) Discharge Medications: New tamsulosin 0.4 mg Capsule 0.4 mg PO DAILY Qty: 30 0RF Continued aspirin 81 mg tablet,delayed release (DR/EC) 81 mg PO DAILY Qty: 30 0RF sertraline 100 mg tablet 1 tab PO DAILY pregabalin 75 mg capsule 1 cap PO BID allopurinol 300 mg tablet 300 mg PO DAILY acetaminophen 650 mg Tablet Extended Release 650 mg PO QID PRN (Reason: Pain) cholecalciferol (vitamin D3) [Vitamin D3] 25 mcg (1,000 unit) Capsule 25 mcg PO DAILY Discontinued amlodipine 2.5 mg tablet 2.5 mg PO DAILY Discharge Orders: Discharge Order (Routine); Ordered 03/27/23 Ordered By: Tea Kelly Diet: Advance to usual diet Activity on Discharge: As tolerated Stand Alone Forms: Patient Portal Discharge page Other Ambulatory Orders: Basic Metabolic Panel (Routine) Timeframe: 2 Days Facility: [facility] - Location: Laboratory Ordered By: Tea Kelly Care Plan Goals: Check lab work: Basic metabolic panel in 2 days You have been started on a new medication called tamsulosin for urinary retention, please take as prescribed Stop taking amlodipine due to low blood pressure readings Health Concerns: JONES Urinary retention Yadav catheter Hypotension Sinus tachycardia with PVCs Acute respiratory failure with hypoxia Hypomagnesemia Viral gastroenteritis with nausea and vomiting Plan of Treatment: -You have a visiting nurse that will come to your home - take all medications as prescribed Assessment: see discharge summary
--- NOTE | 2023-03-27 13:37 | P.CONNP_ITS ---
History of Present Illness Reason for Consult Consult date: 03/27/23 Chief Complaint Chief complaint: Nausea, vomiting, back pain History of Present Illness Narrative: RTANE consulted for JONES 82 y/o F known to me with JONES in setting of Urinary [id number]. Adm with N/V and back pian all imporvoied. Jurado placed d/t 1 Liter PVR and jurado placed but she had them take it out. She wants to go home today no matter what.. Since jurado removed she has not voided Review of Systems Review of Systems Follow up resp failure resp status is improved. back pain Constitutional: Denies chills, Denies fever(s), Denies headache(s), Reports malaise and Reports weakness Denies headache(s) and Reports sore throat (This has since resolved) Cardiovascular: Denies chest pain and Denies dyspnea Respiratory: Denies chest congestion, Denies cough and Denies dyspnea Gastrointestinal: Reports abdominal pain, Reports excessive flatus, Denies diarrhea, Reports nausea and Denies vomiting Musculoskeletal: Reports back pain Skin/Breast: Denies rash Denies headache(s) and Reports weakness PMFSH Past Medical History Medical History Anxiety Chronic kidney disease COPD (chronic obstructive pulmonary disease) Gout Peripheral neuropathy Surgical History Surgical History H/O vaginal hysterectomy History of right hip replacement Social History Social History Household Members: None Housing: Condominium Unable to assess alcohol history related to: Unknown Alcohol intake: unknown Patient Tobacco Use Status: Never used Tobacco Advance Directives Date on File: 03/02/22 service: No Meds Allergies Allergy/AdvReac Type Severity Reaction Status Date / Time Opioids - Morphine Analogues AdvReac Intermediate Confusion Verified 02/23/22 11:18 oxycodone AdvReac Hallucinati Verified 02/23/22 13:45 ons Active Medications: Current Medications Acetaminophen (Acetaminophen 325 Mg Tablet) 650 mg PO Q6H PRN PRN Reason: pain or fever Last Admin: 03/27/23 08:27 Dose: 650 mg Allopurinol (Allopurinol 300 Mg Tablet) 300 mg PO DAILY CLEMENTINE Last Admin: 03/27/23 08:28 Dose: 300 mg Amlodipine Besylate (Amlodipine Besylate 2.5 Mg Tablet) 2.5 mg PO DAILY [facility]; Protocol Last Admin: 03/25/23 08:38 Dose: 2.5 mg Aspirin (Aspirin Enteric Coated 81 Mg Tablet.Dr) 81 mg PO DAILY [facility] Last Admin: 03/27/23 08:28 Dose: 81 mg Heparin Sodium (Porcine) (Heparin Sodium,Porcine 5,000 Unit/Ml Vial) 5,000 unit SUBCUT Q12H [facility] Last Admin: 03/27/23 08:45 Dose: 5,000 unit Sodium Chloride (Ns) 1,000 mls @ 100 mls/hr IVCONT .Q10H [facility] Last Admin: 03/27/23 03:37 Dose: 100 mls/hr Lidocaine (Lidocaine 4 % Patch Adh..Patch) 1 patch TRANSDERMA DAILY [facility]; Protocol Last Admin: 03/27/23 08:34 Dose: 1 patch Melatonin (Melatonin 3 Mg Tablet) 6 mg PO BEDTIME PRN PRN Reason: Insomnia Last Admin: 03/26/23 20:45 Dose: 6 mg Ondansetron HCl (Ondansetron Hcl 4 Mg/2 Ml Vial) 4 mg IVPUSH Q8H PRN PRN Reason: Nausea and Vomiting Pregabalin (Pregabalin 75 Mg Capsule) 75 mg PO BID [facility] Last Admin: 03/27/23 08:28 Dose: 75 mg Sertraline HCl (Sertraline Hcl 100 Mg Tablet) 100 mg PO DAILY [facility] Last Admin: 03/27/23 08:28 Dose: 100 mg Sodium Chloride (0.9 % Sodium Chloride Flush 3 Ml Syringe) 3 ml IVFLUSH QSHIFT [facility] Last Admin: 03/27/23 08:00 Dose: Not Given Tamsulosin HCl (Tamsulosin Hcl 0.4 Mg Capsule) 0.4 mg PO DAILY [facility] Last Admin: 03/27/23 08:28 Dose: 0.4 mg Vitamin D (Cholecalciferol (Vitamin D3) 25 Mcg Tablet) 25 mcg PO DAILY [facility] Last Admin: 03/27/23 08:28 Dose: 25 mcg Home Medications Medication Instructions Recorded Confirmed Last Taken Type pregabalin 75 mg capsule 1 cap PO BID 02/02/22 03/24/23 03/23/23 History sertraline 100 mg tablet 1 tab PO DAILY 0903/24/23 03/23/23 History acetaminophen 650 mg 650 mg PO QID PRN Pain 03/24/23 03/24/23 Unknown History tablet,extended release allopurinol 300 mg tablet 300 mg PO DAILY 03/24/23 03/24/23 03/23/23 History cholecalciferol (vitamin D3) 25 25 mcg PO DAILY 03/24/23 03/24/23 03/23/23 History mcg (1,000 unit) capsule (Vitamin D3) Physical Exam Vital Signs: Last Vital Signs Temp 97.2 F 03/27/23 12:00 Pulse 83 03/27/23 12:00 Resp 20 03/27/23 12:00 BP 106/58 L 03/27/23 12:00 Pulse Ox 100 03/27/23 07:39 O2 Del Method Nasal Cannula 03/27/23 07:39 O2 Flow Rate 2 03/27/23 07:39 BMI result Body Mass Index 21.6 Const Other: Constitutional - drowsy but coverses with queuing. oriented x 3 Eyes - PERRLA, EOMI Cardiovascular - S1S2, RRR, No edema Respiratory - poor air entry bilaterally; no rales appreciated Gastrointestinal - NT / ND; +BS; No rebound or guarding - No CVA tenderness Extremities - no calf tenderness bilaterally, no swelling Musculoskeletal - Normal inspection, normal ROM Skin - Warm/Dry Neurological - Alert & oriented x3, No focal deficit Psychological - Appropriate affect General: healthy appearing, comfortable, no acute distress, alert and awake Orientation/consciousness: patient oriented x3 HEENT Head: Yes normocephalic and Yes atraumatic Eyes Eyelids: Yes eyelids normal Conjunctivae: conjunctivae normal Sclerae: sclerae normal Corneas: corneas normal Pupils: Equal, round and reactive pupils present EOM: EOMs intact bilaterally Neck Neck: Yes full ROM Resp Effort & Inspection: normal respiratory effort, able to speak in complete sentences, no audible wheezes and not labored Auscultation: clear to auscultation bilaterally Cardio Rate: regular rate Rhythm: regular rhythm GI Other: Patient is nontender to light palpation but is tender to deep palpation of the right lower quadrant and left lower quadrant. There is no rebound tenderness or guarding Inspection: No distended Palpation (GI): Soft to palpation, not firm, Tenderness to palpation present (GI) in the LLQ and in the RLQ; not in the epigastrum, not in the LUQ, not in the RUQ and with no rebound tenderness, no guarding and not rigid Auscultation: normoactive bowel sounds Skin General skin exam: elasticity normal Neuro General: patient oriented x3 Cranial nerves: Yes Equal, round and reactive pupils present and Yes Bilaterally intact EOM present Cognition (Neuro): normal cognition Extrem Other: Moving all extremities well without any obvious deformities Results Lab Results 03/25/23 06:06 03/27/23 08:23 Lab results: Chemistry 03/25/23 03/26/23 03/26/23 06:06 05:51 16:18 Sodium 137 137 Potassium 3.4 3.7 Carbon Dioxide 27 28 BUN 12 26 H Creatinine 0.84 2.24 H 2.63 H Calcium 8.9 8.4 03/27/23 03/27/23 03/27/23 08:23 08:23 08:23 Sodium 139 Cancelled Potassium 4.1 Cancelled Carbon Dioxide 26 BUN Creatinine Calcium 03/27/23 03/27/23 03/27/23 08:23 08:23 08:23 Sodium Potassium Carbon Dioxide Cancelled BUN 30 H Cancelled Creatinine 2.05 H Cancelled Calcium 8.4 03/27/23 08:23 Sodium Potassium Carbon Dioxide BUN Creatinine Calcium Cancelled Hematology 03/25/23 06:06 WBC 8.7 Hgb 9.3 L Plt Count 264 Urinalysis 03/27/23 04:10 Urine Color Yellow Urine Appearance Clear Urine pH 5.5 Ur Specific [place] 1.015 Urine Protein 30 (1+) H Urine Glucose (UA) Negative Urine Ketones Trace Urine Blood Moderate (2+) H Urine Nitrite Negative Ur Leukocyte Esterase Trace H Urine RBC 11-20 H Urine WBC 0-5 Ur Squamous Epith Cells 0-2 Hyaline Casts 3-5 Assessment and Plan (1) Increased nausea and vomiting: Status: Acute Plan 82 year old women with hx of Spinal stenosis, CKD, SBO s/p ex-lap TESHA, prior bacteremia who presented to [facility] ED with nausea and vomiting. Her ED course has been complicated by hypoxia, increasing downsiness and possible a. fib/flutter. She is requiring 2-3L of supplemental oxygen. Now developed JONES and Urinary retenion hence the curren tconsult JONES: c/w Ur retention Hypotension. Resolved hypomagnesemia. resolved Anemia chronic, appears toe near baseline REC: because she is adamant about going home---- replace jurado; f/u urol in 3- 4 days; needs repeat labs in 2-4 dasys Procedures Date of Service Date of Service: 03/27/23
--- NOTE | 2023-03-27 16:11 | P.F2F_ITS ---
Service Date Service Date: 03/27/23 Encounter Date of encounter: 03/27/23 Reasons for Services Signs and symptoms assessed: JONES, urinary retention Reason for mcfp: GI/ assessment ( urinary retention, declined Yadav catheter) Homebound: Leaving the home is medically contraindicated at this time without the asist of a device and/or another person due th the listed conditions above and below. Reason homebound: bedbound/chairbound Certification: Based on the above findings, I certify that this patient is confined to the home and needs intermittent mcfp care, physical therapy and/or speech therapy, or continues to need occupational therapy. The patient is under my care, and I have initiated the establishment of the plan of care. The patient will be followed by a physician who will periodically review the plan of care. Time Spent With Patient Time: Total time managing care of this patient today ____ minutes.
--- NOTE | 2023-03-28 08:33 | MHC.CM.PN ---
Late entry for 03/27/23. Pt was medically cleared for D/C home with [facility]. Pts daughter Sathish transported her home.
--- NOTE | 2023-03-28 09:06 | MHC.CM.PN ---
Late entry for 03/27/23. Pt was medically cleared for D/C home with [facility]. Pts daughter Sathish transported her home.
== END 2023-03-27 16:20 | disposition home health service (06) | DRG 391 ==
LOC: HO.ED 03-24 06:33 → HO.EDOVER 03-24 10:08 → HO.IMC 03-24 15:24
PROVIDERS: Emergency Medicine Emergency Medical Services; Physician Assistant; Admitting Provider Family Medicine; Emergency Provider Emergency Medicine; PCP Internal Medicine; Visit Provider Nurse Practitioner Acute Care
DX: A08.4 Viral intestinal infection, unspecified (principal); J96.01 Acute respiratory failure with hypoxia; N17.9 Acute kidney failure, unspecified; I49.1 Atrial premature depolarization; M54.9 Dorsalgia, unspecified; G89.29 Other chronic pain; R33.9 Retention of urine, unspecified; I95.9 Hypotension, unspecified; D64.9 Anemia, unspecified; E83.42 Hypomagnesemia; Z20.822 Contact with and (suspected) exposure to COVID-19; Z79.82 Long term (current) use of aspirin; Z79.899 Other long term (current) drug therapy
CPT/HCPCS: 0241U; 36415; 71046; 74018; 74176; 76775; 80048; 80053; 81001; 82565; 82803; 83605; 83690; 83735; 85025; 85027; 85610; 85730; 87086; 93005; 99285; C1758; J1200; J1630; J1644; J1650; J2060; J2405; J2550; J2765; J3475; J7120

== ENCOUNTER → 2023-03-24 09:59 | Outpatient (BNV) | payer MEDICARE, SELFPAY | PROVIDERS: Admitting Provider Family Medicine; Emergency Provider Emergency Medicine; PCP Internal Medicine; Visit Provider Family Medicine | DX: R11.2 Nausea with vomiting, unspecified (principal) | CPT/HCPCS: 99223; 99232; 99239; G0180 ==

== ENCOUNTER → 2023-04-14 11:27 | Outpatient (BNV) | payer MEDICARE, SELFPAY | PROVIDERS: PCP Internal Medicine; Visit Provider Internal Medicine | DX: D64.9 Anemia, unspecified (principal) | CPT/HCPCS: 99204; 99213; 99214; G2211 ==

== ENCOUNTER 2023-04-27 08:58 | Outpatient (REF) | payer MEDICARE, SELFPAY ==
[2023-04-27 09:40] LABS: MANUAL DIFF FLAG NO
[2023-04-27 09:43] LABS: Basophils Percent Auto 0.2 % (0-2); Eosinophils Absolute Auto 0.1 X10*3/uL (0.0-0.4); Eosinophils Percent Auto 3.2 % (0-4); Hematocrit 24.9 % (37.0-47.0); Hemoglobin 7.4 g/dl (12.0-16.0); Imm Gran Abs Auto 0.01 X10*3/uL (0.00-0.03); Imm Gran Pct Auto 0.2 % (0.0-0.4); Lymphocytes Absolute Auto 0.8 X10*3/uL (1.2-4.9); Lymphocytes Percent Auto 17.2 % (20-40); Mean Corpuscular HGB Conc 29.7 g/dl (31.0-35.0); Mean Corpuscular Hemoglobin 26.7 pg (27.0-33.0); Mean Corpuscular Volume 89.9 fL (80.0-98.0); Mean Platelet Volume 10.1 fL (9.4-12.3); Monocytes Absolute Auto 0.3 X10*3/uL (0.1-1.2); Monocytes Percent Auto 5.7 % (2-11); Neutrophils Absolute Auto 3.2 x10*3/uL (2.0-8.3); Neutrophils Percent Auto 73.5 % (45-73); Platelet Count 151 X10*3/uL (160-400); Red Blood Count 2.77 X10*6/uL (4.20-5.50); Red Cell Distribution Width 14.4 % (11.0-16.0); White Blood Count 4.4 X10*3/uL (4.8-10.8)
== END 2023-04-27 08:59 | disposition home or self-care (01) ==
LOC: HO.LAB 08:58
PROVIDERS: PCP Internal Medicine; Visit Provider Internal Medicine
DX: D50.9 Iron deficiency anemia, unspecified (principal)
CPT/HCPCS: 36415; 85025

== ENCOUNTER 2023-05-23 11:49 | Outpatient (REF) | payer MEDICARE, SELFPAY | END 2023-05-23 11:50 | disposition home or self-care (01) | LOC: HO.MDS 11:49 | PROVIDERS: Visit Provider Internal Medicine | DX: D50.9 Iron deficiency anemia, unspecified (principal) | CPT/HCPCS: 96374; J1756 ==

== ENCOUNTER 2023-05-31 12:20 | Outpatient (REF) | payer MEDICARE, SELFPAY | END 2023-05-31 12:21 | disposition home or self-care (01) | LOC: HO.MDS 12:20 | PROVIDERS: Visit Provider Internal Medicine | DX: D50.9 Iron deficiency anemia, unspecified (principal) | CPT/HCPCS: 96365; J1756; J2916 ==

== ENCOUNTER 2023-06-14 12:39 | Outpatient (REF) | payer MEDICARE, SELFPAY | END 2023-06-14 12:40 | disposition home or self-care (01) | LOC: HO.MDS 12:39 | PROVIDERS: Visit Provider Internal Medicine | DX: D50.9 Iron deficiency anemia, unspecified (principal) | CPT/HCPCS: 96365; J1756 ==

== ENCOUNTER 2023-06-21 10:53 | Outpatient (REF) | payer MEDICARE, SELFPAY | END 2023-06-21 10:54 | disposition home or self-care (01) | LOC: HO.MDS 10:53 | PROVIDERS: Visit Provider Internal Medicine | DX: D50.9 Iron deficiency anemia, unspecified (principal) | CPT/HCPCS: 96365; J1756 ==

== ENCOUNTER 2023-07-11 09:43 | Outpatient (REF) | payer MEDICARE, SELFPAY ==
[2023-07-11 09:54] VITALS: BP 140/79; PULSE 66; RESP 18; TEMP 36.9; O2SAT 92; BMI 22.7
[2023-07-11] MEDS: Iron Sucrose Complex 200 MG in 0.9 % Sodium Chloride 100 ML 440 MG IV (10:33)
== END 2023-07-11 09:44 | disposition home or self-care (01) ==
LOC: HO.MDS 09:43
PROVIDERS: Visit Provider Internal Medicine
DX: D50.9 Iron deficiency anemia, unspecified (principal)
CPT/HCPCS: 96374; J1756

== ENCOUNTER 2023-10-20 12:39 | Outpatient (RCR) | payer MEDICARE, SELFPAY | END 2024-01-05 09:34 | disposition home or self-care (01) | LOC: HO.WCC 12:39 | PROVIDERS: PCP Internal Medicine; Visit Provider Physician Assistant | DX: Z09 Encounter for follow-up examination after completed treatment for conditions other than malignant neoplasm (principal); I73.9 Peripheral vascular disease, unspecified; N18.9 Chronic kidney disease, unspecified; D50.9 Iron deficiency anemia, unspecified; Z87.2 Personal history of diseases of the skin and subcutaneous tissue | CPT/HCPCS: 11042; 99212 ==

== ENCOUNTER 2023-11-29 11:00 | Outpatient (RCR) | payer MEDICARE, SELFPAY ==
[2023-11-01 11:03] VITALS: BP 157/68; PULSE 67; RESP 18; TEMP 36.9; O2SAT 96
[2023-11-01] MEDS: Iron Sucrose Complex 200 MG in 0.9 % Sodium Chloride 100 ML 440 MG IV (11:18)
[2023-11-01] MEDS: 0.9 % Sodium Chloride Flush 10 ML SYRINGE 5 ML IVFLUSH (11:38)
[2023-11-08 11:07] VITALS: BP 164/74; PULSE 72; RESP 18; TEMP 36.7; O2SAT 93
[2023-11-08] MEDS: Iron Sucrose Complex 200 MG in 0.9 % Sodium Chloride 100 ML 440 MG IV (11:58)
[2023-11-15 11:52] VITALS: BP 160/71; PULSE 67; RESP 16; TEMP 37; O2SAT 96
[2023-11-15] MEDS: Iron Sucrose Complex 200 MG in 0.9 % Sodium Chloride 100 ML 440 MG IV (11:59)
[2023-11-21 11:06] VITALS: BP 170/70; PULSE 66; RESP 18; TEMP 37.1; O2SAT 98
[2023-11-21] MEDS: Iron Sucrose Complex 200 MG in 0.9 % Sodium Chloride 100 ML 440 MG IV (11:25)
[2023-11-21] MEDS: 0.9 % Sodium Chloride Flush 10 ML SYRINGE 5 ML IVFLUSH (11:45)
[2023-11-29 11:32] VITALS: BP 145/77; PULSE 74; RESP 18; TEMP 37.2; O2SAT 95
[2023-11-29] MEDS: Iron Sucrose Complex 200 MG in 0.9 % Sodium Chloride 100 ML 440 MG IV (11:44)
[2023-11-29] MEDS: 0.9 % Sodium Chloride Flush 10 ML SYRINGE 5 ML IVFLUSH (12:07)
== END 2023-11-29 14:44 | disposition home health service (06) ==
LOC: HO.INF 11:00
PROVIDERS: Visit Provider Internal Medicine
DX: D64.9 Anemia, unspecified (principal)
CPT/HCPCS: 96365; 96374; J1756

== ENCOUNTER 2024-05-30 10:45 | Outpatient (RCR) | payer MEDICARE, SELFPAY | END 2024-07-08 13:53 | disposition home or self-care (01) | LOC: HO.WCC 10:45 | PROVIDERS: PCP Internal Medicine; Visit Provider Surgery | DX: I87.311 Chronic venous hypertension (idiopathic) with ulcer of right lower extremity (principal); L97.812 Non-pressure chronic ulcer of other part of right lower leg with fat layer exposed; L23.1 Allergic contact dermatitis due to adhesives | CPT/HCPCS: 11042; 99212; 99213 ==

== ENCOUNTER 2024-12-01 08:45 | Inpatient (IN) | payer MEDICARE, SELFPAY ==
[2024-12-01] VITALS (16 sets, daily range): BP systolic 130–180; BP diastolic 73–96; PULSE 70–92; RESP 14–25; TEMP 36.2–37.4; O2SAT 81–100; BMI 20.1
--- NOTE | ~2024-12-01 | XR_ITS ---
CLINICAL HISTORY: stroke 1 view chest x-ray Comparison: 03/23/2023 06:27 PM EST: CRSR: XR CHEST 2 VIEWS (05:27 PM BOOKKEEPER ASSISTANT) Findings: There is diffuse interstitial and central vascular prominence. Underexpanded lungs limit interpretation. Cardiac and mediastinal contours are within expected limits. Questionable irregularity of the distal right clavicle. Impression: Mild interstitial edema not excluded. Questionable irregularity of the distal right clavicle. This document has been electronically signed by: Deepak Cha MD on 12/01/2024 10:23:19
--- NOTE | ~2024-12-01 | CT_ITS ---
CLINICAL HISTORY: Aphasia FALL TRAUMA CT angiography head and neck with contrast. 3D Post-processing. Comparison: None Findings: CTA head: No intracranial large vessel occlusion. No dissection or aneurysm. The intracranial segments of the internal carotid arteries are patent bilaterally. Intradural vertebral arteries are patent. Anterior and posterior circulation appears widely patent. No abnormal postcontrast enhancement. CTA neck: There is a normal branching pattern of the aortic arch. The right carotid artery is patent with moderately severe atherosclerotic disease of the bifurcation. There is approximately 75% stenosis of the origin of the right ICA. The left carotid artery is patent with moderate atherosclerotic disease of the bifurcation without significant resulting stenosis involving the proximal left ICA. The vertebral arteries are patent. The left vertebral artery is dominant. Degenerative changes within the spine. The visualized lung apices demonstrate chronic interstitial changes. Severe degenerative change of the right shoulder. Impression: There is no intracranial large vessel occlusion detected. There is origin stenosis of the right ICA as detailed. Incidental findings as noted. This document has been electronically signed by: Deepak Cha MD on 12/01/2024 09:54:52
--- NOTE | ~2024-12-01 | XR_ITS ---
EXAMINATION: XR RIBS, BILATERAL CLINICAL INFORMATION: Rib pain s/p fall at home COMPARISON: 11/01/2024, 03/23/2023. TECHNIQUE: AP and lateral views of the chest were obtained. The patient could not tolerate appropriate positioning for rib views. FINDINGS: Elevated right hemidiaphragm, unchanged. The cardiac silhouette is mildly enlarged. There is mitral annular calcification. Mediastinal and hilar contours appear grossly normal. Aortic mural calcifications. The lungs are grossly clear. There is no effusion or pneumothorax. Old healed left fifth rib fracture noted. No definite acute rib fracture identified on these limited views. Severe degenerative changes right greater than left shoulder joints and throughout the spine. Exaggerated thoracic kyphosis. No acute bony abnormality identified. XR/XR Ribs Keegan 2V IMPRESSION: 1. Limited exam as detailed. The patient could not tolerate appropriate positioning for rib views. 2. No acute findings in the thorax. No definite rib fracture seen on these 2 limited projections. 3. Mild cardiac enlargement with mitral annular calcification. 4. Chronically elevated right hemidiaphragm. Electronically signed by: Jacinto Childs MD 12/02/2024 09:54 AM EDT
--- NOTE | ~2024-12-01 | XR_ITS ---
CLINICAL HISTORY: fall 3 view left shoulder Comparison: None provided Findings: Advanced degenerative changes of the glenohumeral and acromioclavicular joints. Old left 5th rib fracture noted. No definite acute fracture or acute malalignment. Chronic interstitial changes in the visualized lungs. Impression: No acute process. This document has been electronically signed by: Deepak Cha MD on 12/01/2024 10:15:00
--- NOTE | ~2024-12-01 | CT_ITS ---
CLINICAL HISTORY: fall, speech changes CT head without contrast Comparison: CT/REG/SR - CT HEAD WITHOUT IV CONTRAST - 02/07/22 15:50 EDT Findings: No evidence of acute territorial infarct. There is patchy low density in the periventricular and subcortical white matter. Diffuse volume loss is noted. No hydrocephalus. No hemorrhage, mass effect, mass lesion or midline shift. No abnormal extra-axial fluid. No calvarial fracture. Paranasal sinuses and mastoid air cells are clear. Impression: No acute intracranial process. Chronic changes as detailed. This document has been electronically signed by: Deepak Cha MD on 12/01/2024 09:43:05
--- NOTE | 2024-12-01 08:52 | ED.GENADULT ---
HPI - General Adult General Chief complaint: Stroke Stated complaint: FALL,ON FLOOR ALL NIGHT,-LOC,TROUBLE SPEAKING Time Seen by Provider: 12/01/24 08:52 Source: patient, family (Daughter's), EMS and old records reviewed Mode of arrival: EMS Limitations: no limitations History of Present Illness ED Provider: DR. Shaver HPI narrative: 84-year-old female brought in by EMS for evaluation of a fall and patient was found to have a slurred speech. Patient with PMH of spinal stenosis, CKD, TIA, CVA with no residual weakness, patient normally lives home by herself wheelchair-bound secondary to chronic back pain and neuritis patient is able to transport herself from the wheelchair to regular chair if needed, last known well was 21:00 last night which is her normal time to go to bed, patient slipped off the wheelchair and fell on the ground remained on the floor till next morning 08:00 when she called her daughter and was found to have a slurred speech by her family, no history of anticoagulation. Patient otherwise has no other weakness or numbness as per family patient has been falling down for the last week, on the exam there is ecchymosis on the back of her left shoulder. No fever, no chills. Related Data Home Medications ?Medication ?Instructions ?Recorded ?Confirmed pregabalin 75 mg capsule 1 cap PO DAILY 02/02/22 12/04/23 sertraline 100 mg tablet 1 tab PO DAILY 02/02/22 12/04/23 acetaminophen 650 mg 650 mg PO QID PRN Pain 03/24/23 12/04/23 tablet,extended release allopurinol 300 mg tablet 300 mg PO DAILY 03/24/23 12/04/23 amlodipine 2.5 mg tablet 5 mg PO DAILY 04/13/23 12/04/23 cholecalciferol (vitamin D3) 25 25 mcg PO DAILY 04/13/23 12/04/23 mcg (1,000 unit) capsule (Vitamin D3) cyanocobalamin (vitamin B-12) 1,000 mcg PO DAILY 04/13/23 12/04/23 1,000 mcg tablet (Vitamin B-12) vitamin A-vitamin C-vit E-min 1 tab PO DAILY 04/13/23 12/04/23 tablet Allergies Allergy/AdvReac Type Severity Reaction Status Date / Time cyclobenzaprine Allergy Intermediate Hallucinati Verified 12/01/24 08:59 ons Opioids - Morphine Analogues AdvReac Intermediate Confusion Verified 12/01/24 08:59 oxycodone AdvReac Hallucinati Verified 12/01/24 08:59 ons Review of Systems Review of Systems: Yes all other systems are reviewed and are negative FOR[facility]LY [facility] Past Medical History Medical History History of cystocele Vitamin D deficiency Major depression in complete remission Lumbar spondylosis Lumbar spinal stenosis Lumbar scoliosis STORMY (iron deficiency anemia) Hypercholesterolemia HTN (hypertension) H/O Clostridium difficile infection Hemorrhoids Avascular necrosis of bone of right hip Diverticulosis Cataract Allergic rhinitis Agoraphobia Spinal stenosis COPD (chronic obstructive pulmonary disease) Anxiety Gout Peripheral neuropathy Chronic kidney disease Dehydration Surgical History History of lumbar fusion History of repair of rectocele History of hysterectomy History of tonsillectomy History of colonoscopy H/O vaginal hysterectomy History of right hip replacement Family History Family History Mother Stroke Social History Social History Household Members: None Housing: Condominium Unable to assess alcohol history related to: Unknown Alcohol intake: unknown Patient Tobacco Use Status: Former Tobacco user Tobacco use type: Cigarette Smoked in Last 30 Days: No Use of substances other than those prescribed or required for medical reasons: No Advance Directives: Yes Advance Directives on File: Yes Advance Directives Date on File: 03/02/22 Do you have a plan to hurt others: No Plan service: No Current occupational status: retired and disabled Physical Exam ED Vital Signs: Vital Signs - 24 hr 12/01/24 08:51 12/01/24 09:47 12/01/24 09:47 Temperature 97.7 F Pulse Rate 70 Respiratory Rate 17 Blood Pressure 155/88 H Pulse Oximetry 95 84 L 98 Oxygen Delivery Method Room Air Room Air Nasal Cannula Oxygen Flow Rate 4 12/01/24 09:47 12/01/24 09:49 12/01/24 10:00 Temperature 97.9 F Pulse Rate 91 85 83 Respiratory Rate 17 17 22 H Blood Pressure 164/87 H 170/82 H 158/82 H Pulse Oximetry 87 L 100 96 Oxygen Delivery Method Nasal Cannula Nasal Cannula Nasal Cannula Oxygen Flow Rate 2 4 4 12/01/24 10:14 12/01/24 10:30 12/01/24 10:41 Temperature 97.2 F Pulse Rate 78 78 78 Respiratory Rate 19 18 25 H Blood Pressure 160/73 H 170/88 H 170/88 H Pulse Oximetry 96 97 97 Oxygen Delivery Method Nasal Cannula Nasal Cannula Nasal Cannula Oxygen Flow Rate 4 4 4 12/01/24 11:00 12/01/24 11:15 12/01/24 11:30 Temperature 98.0 F 98.5 F 98.2 F Pulse Rate 92 85 77 Respiratory Rate 18 19 15 Blood Pressure 149/84 H 161/83 H 154/80 H Pulse Oximetry 96 96 96 Oxygen Delivery Method Nasal Cannula Nasal Cannula Nasal Cannula Oxygen Flow Rate 4 4 4 12/01/24 11:45 Temperature 98.4 F Pulse Rate 77 Respiratory Rate 18 Blood Pressure 161/83 H Pulse Oximetry 98 Oxygen Delivery Method Nasal Cannula Oxygen Flow Rate 4 BMI result Body Mass Index 20.1 Vital signs have been reviewed and appear to be correct. Blood pressure elevated. Heart rate normal. Respiratory rate normal. Temperature normal. Oxygen saturation normal. Appearance: Alert. Oriented X3. No acute distress. Head: Normal external exam. Normocephalic. Atraumatic. No Merchant signs noted. No raccoon eyes noted Eyes: PERRLA. EOMI. Conjunctiva and sclera normal. Eyelids normal. ENT: TM's Normal. Pharynx normal. Uvula midline. Moist mucous membranes. No trismus noted. No drooling noted. No muffled voice noted. Neck: Normal inspection. Neck supple. FROM. No adenopathy. Thyroid Normal. No meningeal signs. No neck mass noted. CVS: Normal heart rate and rhythm. Heart sound normal. No murmurs noted. Pulses normal throughout. Respiratory: No respiratory distress. Painless inspiration. Breath sounds normal. No wheezes/rales/rhonchi noted. Chest nontender. No accessory muscle usage noted or decreased air movement noted. Abdomen: Soft and nontender. Bowel sounds normal in all 4 quadrants. No distention noted. No organomegaly noted. No visible injury noted. Back: No CVA tenderness. Full range of motion noted. Skin: Skin warm and dry. Normal skin color. Normal skin turgor. No rashes/lesions/lacerations noted. Extremities: No lower extremity edema. Extremities exhibit normal range of motion. Extremities nontender. Neuro: Oriented X 3. Cranial nerve exam: II-XII are grossly intact No motor deficit. No sensory deficit. Reflexes normal. NIH Stroke Scale Internal: Initial- Upon Arrival Time: 09:28 Level of Consciousness: Alert Level of Consciousness Questions: Answers both questions correctly Level of Consciousness Commands: Performs both tasks correctly Best Gaze: Normal Visual: No visual loss Facial Palsy: Normal Motor Arm (Right): No drift Motor Arm (Left): No drift Motor Leg (Right): No drift Motor Leg (Left): No drift Limb Ataxia: Absent Sensory: Normal Best Language: Severe aphasia Dysarthia: Normal Extinction and Inattention: No abnormality Score: 2 Course Reevaluation(s) Reevaluation #1: 84-year-old female came in after sustained a fall and remained on the ground for overnight. 1. Hypomagnesemia magnesium will be repleted. 2. Mild rhabdomyolysis gentle hydration. 3. CVA patient is not a candidate for thrombolysis or mechanical thrombolysis unknown onset of symptoms. Time: 12:20 Medications Administered Generic Name Dose Route Start Last Admin Trade Name Freq PRN Reason Stop Dose Admin Magnesium Sulfate 2 gm in 50 mls @ 25 mls/hr 12/01/24 11:19 12/01/24 12:13 Magnesium Sulfate/H2o IV 12/01/24 13:18 25 mls/hr ONCE ONE Administration Discontinued Medications Generic Name Dose Route Start Last Admin Trade Name Freq PRN Reason Stop Dose Admin Hydromorphone HCl 1 mg 12/01/24 09:20 12/01/24 09:22 Hydromorphone Hcl 1 Mg/Ml Syringe IVPUSH 12/01/24 09:21 1 mg ONCE ONE Administration Protocol Iohexol 100 ml 12/01/24 09:34 12/01/24 09:34 Iohexol 350 Mg/Ml 100 Ml Infus..Btl IV 12/01/24 09:35 70 ml ONCE ONE Administration Morphine Sulfate 1 mg 12/01/24 09:05 12/01/24 09:06 Morphine Sulfate 2 Mg/Ml Cartridge IVPUSH 12/01/24 09:06 1 mg ONCE ONE Administration Protocol Medical Decision Making Differential Diagnosis Differential Diagnoses: The differential diagnosis associated with the presentation includes (CVA, TIA, intracranial bleed, electrolyte derangement, severe anemia, ACS, cardiac dysrhythmia.) Admission/Observation Consideration of admission/observation: Escalation of care including admission/observation considered Consult Healthcare Provider Management of the patient was discussed with: Hospitalist (Zeny THRASHER) Lab Data MDM Lab Attestation statement: I reviewed the patient's lab results. 12/01/24 09:00 12/01/24 09:00 Labs: Lab Results 12/01/24 12/01/24 12/01/24 Range/Units 09:00 09:01 09:02 WBC 7.3 (4.8-10.8) X10*3/uL RBC 3.53 L (4.20-5.50) X10*6/uL Hgb 12.4 (12.0-16.0) g/dl Hct 36.3 L (37.0-47.0) % MCV 102.8 H (80.0-98.0) fL MCH 35.1 H (27.0-33.0) pg MCHC 34.2 (31.0-35.0) g/dl RDW 13.8 (11.0-16.0) % Plt Count 165 (160-400) X10*3/uL MPV 9.8 (9.4-12.3) fL Immature Gran % (Auto) 0.3 (0.0-0.4) % Neut % (Auto) 90.3 H (45-73) % Lymph % (Auto) 4.3 L (20-40) % [place] % (Auto) 5.0 (2-11) % Eos % (Auto) 0.0 (0-4) % Baso % (Auto) 0.1 (0-2) % Lymph # (Auto) 0.3 L (1.2-4.9) X10*3/uL [place] # (Auto) 0.4 (0.1-1.2) X10*3/uL Eos # (Auto) 0.0 (0.0-0.4) X10*3/uL Baso # (Auto) 0.0 (0.0-0.2) X10*3/uL Abs Immat Gran (auto) 0.02 (0.00-0.03) X10*3/uL Absolute Neuts (auto) 6.6 (2.0-8.3) x10*3/uL Absolute Nucleated RBC 0.000 (0.0-0.012) X10*3/uL Nucleated RBC % (auto) 0.0 (0.0-0.2) /100WBC Smear Tech's Comments VERIFIED PT 9.5 L (10.9-12.4) SEC Whole Blood PT 12.0 (11.1-13.5) sec INR 0.8 L (0.9-1.1) Whole Blood INR 1.0 (0.9-1.1) Sodium 142 (135-145) mmol/L Potassium 4.4 (3.3-5.1) mmol/L Chloride 110 H (96-108) mmol/L Carbon Dioxide 22 (22-29) mmol/L Anion Gap 14 (12-20) BUN 42 H (9-16) mg/dL Creatinine 1.59 H (0.5-1.4) mg/dL Estim Creat Clear Calc 23.1 Estimated GFR 31 POC Glucose 116 H (60-115) mg/dL Random Glucose 134 H (60-115) mg/dL Calcium 9.4 (8.4-10.2) mg/dL Magnesium 1.5 L (1.6-2.6) mg/dL Total Bilirubin 0.3 (0.0-1.0) mg/dL AST 46 H (5-31) U/L ALT 12 (0-31) U/L Alkaline Phosphatase 136 H (39-117) U/L Total Creatine Kinase 1131 H (26-140) U/L Troponin I High Sens 98.3 H* (<3.5-17.0) ng/L Total Protein 7.5 (6.5-8.0) g/dL Albumin 4.4 (3.5-5.0) g/dL Ethyl Alcohol < 10 mg/dL Influenza Type A (PCR) NEGATIVE (Negative) Influenza Type B (PCR) NEGATIVE (Negative) RSV RNA Qual (PCR) NEGATIVE (Negative) SARS-CoV-2 RNA (RT-PCR) NEGATIVE (Negative) 12/01/24 Range/Units 11:11 WBC (4.8-10.8) X10*3/uL RBC (4.20-5.50) X10*6/uL Hgb (12.0-16.0) g/dl Hct (37.0-47.0) % MCV (80.0-98.0) fL MCH (27.0-33.0) pg MCHC (31.0-35.0) g/dl RDW (11.0-16.0) % Plt Count (160-400) X10*3/uL MPV (9.4-12.3) fL Immature Gran % (Auto) (0.0-0.4) % Neut % (Auto) (45-73) % Lymph % (Auto) (20-40) % [place] % (Auto) (2-11) % Eos % (Auto) (0-4) % Baso % (Auto) (0-2) % Lymph # (Auto) (1.2-4.9) X10*3/uL [place] # (Auto) (0.1-1.2) X10*3/uL Eos # (Auto) (0.0-0.4) X10*3/uL Baso # (Auto) (0.0-0.2) X10*3/uL Abs Immat Gran (auto) (0.00-0.03) X10*3/uL Absolute Neuts (auto) (2.0-8.3) x10*3/uL Absolute Nucleated RBC (0.0-0.012) X10*3/uL Nucleated RBC % (auto) (0.0-0.2) /100WBC Smear Tech's Comments PT (10.9-12.4) SEC Whole Blood PT (11.1-13.5) sec INR (0.9-1.1) Whole Blood INR (0.9-1.1) Sodium (135-145) mmol/L Potassium (3.3-5.1) mmol/L Chloride (96-108) mmol/L Carbon Dioxide (22-29) mmol/L Anion Gap (12-20) BUN (9-16) mg/dL Creatinine (0.5-1.4) mg/dL Estim Creat Clear Calc Estimated GFR POC Glucose (60-115) mg/dL Random Glucose (60-115) mg/dL Calcium (8.4-10.2) mg/dL Magnesium (1.6-2.6) mg/dL Total Bilirubin (0.0-1.0) mg/dL AST (5-31) U/L ALT (0-31) U/L Alkaline Phosphatase (39-117) U/L Total Creatine Kinase (26-140) U/L Troponin I High Sens 118.0 H* (<3.5-17.0) ng/L Total Protein (6.5-8.0) g/dL Albumin (3.5-5.0) g/dL Ethyl Alcohol mg/dL Influenza Type A (PCR) (Negative) Influenza Type B (PCR) (Negative) RSV RNA Qual (PCR) (Negative) SARS-CoV-2 RNA (RT-PCR) (Negative) Independent Interpretation I performed an independent interpretation of an: Plain X-Ray (Chest/left shoulder:Mild interstitial edema not excluded. Questionable irregularity of the distal right clavicle, no acute shoulder process.) and CT Scan (Head/neck CTA:There is no intracranial large vessel occlusion detected. There is origin stenosis of the right ICA as detailed. Incidental findings as noted.) Discharge Plan Discharge Clinical Impression: Hypomagnesemia, Acute CVA (cerebrovascular accident), Elevated troponin Patient Disposition: Admitted As Inpatient
--- NOTE | 2024-12-01 08:53 | ECG_ITS ---
Test Reason : STROKE Blood Pressure : */* mmHG Vent. Rate : 84 BPM Atrial Rate : 84 BPM P-R Int : 168 ms QRS Dur : 88 ms QT Int : 392 ms P-R-T Axes : 61 11 20 degrees QTcB Int : 463 ms Normal sinus rhythm Normal ECG When compared with ECG of 25-Mar-2023 09:23, Premature supraventricular complexes are no longer Present Referred By: Xiao Whitmore Electronically Signed By: Karthikeyan Sheehan
--- NOTE | 2024-12-01 09:00 | PC.NURSE ---
pt biba from home s/p unwitnessed fall x last night. pt lives home alone. wheelchair bound d/t hx of spinal stenosis/neuropathy. stroke workup initiated upon ED arrival d/t pt being notably aphasic. LKW x 2100 on 11/30. pt reports she was in her wheelchair, attempted to turn off light switch when she fell out and was on the ground/in the same position until 0800 on 12/01 when she called family. family then called EMS for evaluation. ?headstrike, -loc, -thinners. hx stroke/TIAs - no previous deficits. upon ED arrival - pt noted to have aphasia/difficulty word finding which family reports is a new symptom. upon ED arrival - neuros intact aside from remaining aphasic. answering questions/following commands w/o difficulty. vss and up to date. nsr on the bus monitor. 18gIV placed in the right AC - labs obtained/sent to lab. POC/INR obtained by tech. pt transferred immediately to CT. family bedside for support. plan of care ongoing.
[2024-12-01 09:05] LABS: Glucose, Whole Blood 116 mg/dL (60-115)
[2024-12-01 09:07] LABS: Hematocrit 36.3 % (37.0-47.0); Hemoglobin 12.4 g/dl (12.0-16.0); Imm Gran Abs Auto 0.02 X10*3/uL (0.00-0.03); Imm Gran Pct Auto 0.3 % (0.0-0.4); Lymphocytes Absolute Auto 0.3 X10*3/uL (1.2-4.9); MANUAL DIFF FLAG SCAN; Mean Corpuscular HGB Conc 34.2 g/dl (31.0-35.0); Mean Corpuscular Hemoglobin 35.1 pg (27.0-33.0); Mean Corpuscular Volume 102.8 fL (80.0-98.0); NRBC Abs Auto 0.000 X10*3/uL (0.0-0.012); NRBC Pct Auto 0.0 /100WBC (0.0-0.2); Platelet Count 165 X10*3/uL (160-400); Red Blood Count 3.53 X10*6/uL (4.20-5.50); SCAN SMEAR FLAG 1; White Blood Count 7.3 X10*3/uL (4.8-10.8)
[2024-12-01 09:14] LABS: INTERNATIONAL NORM RATIO 0.8 (0.9-1.1); Prothrombin Time 9.5 SEC (10.9-12.4)
[2024-12-01 09:22] LABS: Alanine Aminotransferase 12 U/L (0-31); Albumin Level 4.4 g/dL (3.5-5.0); Alkaline Phosphatase 136 U/L (39-117); Anion Gap 14 (12-20); Aspartate Amino Transferase 46 U/L (5-31); Blood Urea Nitrogen 42 mg/dL (9-16); Calcium 9.4 mg/dL (8.4-10.2); Carbon Dioxide 22 mmol/L (22-29); Chloride 110 mmol/L (96-108); Creatinine Clr Calc Pharmacy 23.1; Estimated Glomerular Filt Rate 31; Magnesium 1.5 mg/dL (1.6-2.6); Potassium 4.4 mmol/L (3.3-5.1); Sodium 142 mmol/L (135-145); Total Protein 7.5 g/dL (6.5-8.0)
[2024-12-01 09:23] LABS: Prothrombin Time Whole Bld POC 12.0 sec (11.1-13.5); ~PT, ~INR - Anti Coag Clinic 1.0 (0.9-1.1)
--- NOTE | 2024-12-01 09:25 | PC.NURSE ---
medication pulled x [address] was being completed d/t pt being unable to lay flat. medication administration effective. CT completed w/o difficulty.
[2024-12-01] MEDS: iohexoL 350 MG/ML 100 ML INFUS..BTL IV (09:34)
[2024-12-01 09:36] LABS: Troponin-I High Sensitivity 98.3 ng/L (<3.5-17.0)
[2024-12-01 09:44] LABS: Resp Syncy Virus RNA Qual PCR NEGATIVE (Negative); SARS COV2 PCR INHOUSE NEGATIVE (Negative)
--- NOTE | 2024-12-01 09:52 | PC.NURSE ---
pt returned from CT at this time. ekg obtained by tech. patient noted to be hypoxic at 84% on RA - placed pt on 4L via NC w/ good effect. attempted to wean patient to 2L via NC but unable to do so d/t pt desatting to 88%. patient now remains on 4L via NC. no apparent respiratory distress noted. no sob/wob noted. respirations even/unlabored. nsr on the equipment monitor phototypesetting. family bedside for support. plan of care ongoing. call ramirez placed within reach.
--- NOTE | 2024-12-01 10:04 | MHC.EDTECH ---
Delay on EKG pt was in CT RN aware
--- NOTE | 2024-12-01 10:17 | PC.NURSE ---
nursing swallow evaluation completed. patient failed. patient unable to adequately hold water within mouth. wet cough noted. patient as well as family members notified that patient is to remain NPO at this time. MD notified/aware of results.
--- NOTE | 2024-12-01 11:13 | PC.NURSE ---
patient seemingly less aphasic at this time. remains alert/oriented. answering questions/following commands appropriately. neuros otherwise remain intact. vss and up to date. nsr on the court recording monitor. repeat troponin obtained/sent to lab. pt remains on 4L via NC in no apparent respiratory distress. no sob/wob noted. respirations even/unlabored. family remains bedside for support. plan of care ongoing.
[2024-12-01 11:50] LABS: Troponin-I High Sensitivity 118.0 ng/L (<3.5-17.0)
--- NOTE | 2024-12-01 12:07 | PM.IMHP ---
History of Present Illness Date of Service: 12/01/24 Attending physician on admission: [facility] Chief Complaint: Fall at home Pt is an 84-year-old female with a PMH significant for?hx of TIA in 2020, iron deficiency anemia, CKD 3, HTN, and gout who presents to the ED with dysarthia after fall at home last evening. Family is at bedside who provides most history. Pt lives by herself and is chronically wheelchair bound. Normally capable of transferring herself and also has help from family who regularly check in on her. Reports slipped out of her chair last night around 21:00, though precipitating events unclear. 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 Believes she hit her left shoulder though uncertain how or on what. Not sure about headstrike. Pt stayed on floor until she called family at 08:00 this morning. Unclear why she waited this long to reach out for help. During call family noted pt appeared to be having difficulty word finding and speaking clearly, so EMS was called. Pt denies headache, acute vision changes. No hemiparesis. Denies chest pain/pressure or palpitations. No fever or chills. Denies nausea, vomiting, abdominal pain. No SOB or difficulty breathing. Denies cough or recent respiratory illness. No lower leg edema. Family notes pt has a couple of drinks daily. In the ED pt was hypertensive as high as 170/82, tachypneic up to 25, and initially noted to be desatting at 84% on RA. Labs were significant for magnesium 1.5, AST 46, alk-phos 136, CPK 1131, initial troponin 98.3 with repeat flat at 118.0. UA negative for UTI. Ethyl alcohol negative. Tested negative for flu, COVID, RSV. CTA of head negative for acute intracranial process but showing diffuse volume loss. 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 CXR showed question of mild interstitial edema. Left shoulder x-ray negative for acute process. EKG demonstrated normal sinus rhythm without evidence of significant ST elevations or depressions. Pt was treated in the ED with morphine, hydromorphone, and Mag sulfate. Pt is admitted to the hospital for treatment and further evaluation of dysarthria and fall at home concerning for possible acute CVA. Review of Systems Review of Systems: Negative except for that which is stated in the HPI. 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 Lumbar spondylosis Lumbar spinal stenosis Lumbar scoliosis STORMY (iron deficiency anemia) Hypercholesterolemia HTN (hypertension) H/O Clostridium difficile infection Hemorrhoids Avascular necrosis of bone of right hip Diverticulosis Cataract Allergic rhinitis Agoraphobia Spinal stenosis COPD (chronic obstructive pulmonary disease) Anxiety Gout Peripheral neuropathy Chronic kidney disease Dehydration Family History Mother Stroke Surgical History History of lumbar fusion History of repair of rectocele History of hysterectomy History of tonsillectomy History of colonoscopy H/O vaginal hysterectomy History of right hip replacement Social History Household Members: None Housing: Condominium Do you presently have visiting nurse or other home services: No Unable to assess alcohol history related to: Unknown Alcohol intake: unknown Patient Tobacco Use Status: Former Tobacco user Tobacco use type: Cigarette Advance Directives Date on File: 03/02/22 service: No Current occupational status: retired and disabled Meds Allergies Allergy/AdvReac Type Severity Reaction Status Date / Time cyclobenzaprine Allergy Intermediate Hallucinati Verified 12/01/24 08:59 ons Opioids - Morphine Analogues AdvReac Intermediate Confusion Verified 12/01/24 08:59 oxycodone AdvReac Hallucinati Verified 12/01/24 08:59 ons Active Medications: Current Medications Magnesium Sulfate (Magnesium Sulfate/H2o) 2 gm in 50 mls @ 25 mls/hr IV ONCE ONE Stop: 12/01/24 13:18 Home Medications ?Medication ?Instructions ?Recorded ?Confirmed ?Last Taken ?Type pregabalin 75 mg capsule 1 cap PO DAILY 02/02/22 12/01/24 11/30/24 History sertraline 100 mg tablet 1 tab PO DAILY 02/02/22 12/01/24 11/30/24 History acetaminophen 650 mg 650 mg PO QID PRN Pain 03/24/23 12/01/24 Unknown History tablet,extended release allopurinol 300 mg tablet 300 mg PO DAILY 03/24/23 12/01/24 11/30/24 History cholecalciferol (vitamin D3) 25 25 mcg PO DAILY 04/13/23 12/01/24 11/30/24 History mcg (1,000 unit) capsule (Vitamin D3) cyanocobalamin (vitamin B-12) 1,000 mcg PO DAILY 04/13/23 12/01/24 11/30/24 History 1,000 mcg tablet (Vitamin B-12) vitamin A-vitamin C-vit E-min 1 tab PO DAILY 04/13/23 12/01/24 11/30/24 History tablet amlodipine 10 mg tablet 10 mg PO DAILY 12/01/24 12/01/24 11/30/24 History metoprolol succinate 50 mg 50 mg PO DAILY 12/01/24 12/01/24 11/30/24 History tablet,extended release 24 hr Physical Exam Vital Signs and Narrative: Vital Signs: Last Vital Signs Temp 98.4 F 12/01/24 11:45 Pulse 77 12/01/24 11:45 Resp 18 12/01/24 11:45 BP 161/83 H 12/01/24 11:45 Pulse Ox 98 12/01/24 11:45 O2 Del Method Nasal Cannula 12/01/24 11:45 O2 Flow Rate 4 12/01/24 11:45 BMI result Body Mass Index 20.1 Constitutional: Alert, in no acute distress. Elderly, appears weak and frail Mental Status: Oriented to person, place, time, and situation. Eyes: Pupils are equal, round, and reactive to light. EOM intact. Ear, Nose, and Throat: Oropharynx clear, mucous membranes moist. Ears and nose without deformities. Trachea midline. Tongue midline without fasciluations. Respiratory: Clear to auscultation bilaterally. No wheezing, rales, or rhonchi. Cardiovascular: S1, S2 regular. No murmurs, rubs, or gallops. Gastrointestinal: Abdomen soft, non-tender, non-distended. Normal bowel sounds. Neurologic: Pt with dysarthia though improves with speaking slowly and concentrating. Possible difficulty word finding. Moves all extremities spontaneously. Pt with globalized weakness and impaired coordination. Appears symmetric with no clear hemiparesis noted, though difficult to assess. Sensation to light touch intact of face, and upper and lower extremities bilaterally. Negative pronator drift. Skin: Significant area of ecchymosis noted around left shoulder and upper left back. Area of ecchymosis on dorsal aspect of left hand. Musculoskeletal: Globalized weakness Extremities: No edema. Psychiatric: Normal mood and affect. Results Labs 12/01/24 09:00 12/02/24 06:07 Labs: Laboratory Results - last 24 hr 12/01/24 12/01/24 12/01/24 09:00 09:01 09:02 MCV 102.8 H MCH 35.1 H MCHC 34.2 RDW 13.8 Plt Count 165 MPV 9.8 Immature Gran % (Auto) 0.3 Neut % (Auto) 90.3 H Lymph % (Auto) 4.3 L [place] % (Auto) 5.0 Eos % (Auto) 0.0 Baso % (Auto) 0.1 Lymph # (Auto) 0.3 L [place] # (Auto) 0.4 Eos # (Auto) 0.0 Baso # (Auto) 0.0 Abs Immat Gran (auto) 0.02 Absolute Neuts (auto) 6.6 Absolute Nucleated RBC 0.000 Nucleated RBC % (auto) 0.0 Smear Tech's Comments VERIFIED PT 9.5 L Whole Blood PT 12.0 INR 0.8 L Whole Blood INR 1.0 Anion Gap 14 Estim Creat Clear Calc 23.1 Estimated GFR 31 POC Glucose 116 H Random Glucose 134 H Calcium 9.4 Magnesium 1.5 L Total Bilirubin 0.3 AST 46 H ALT 12 Alkaline Phosphatase 136 H Total Creatine Kinase 1131 H Total Protein 7.5 Albumin 4.4 Ethyl Alcohol < 10 Influenza Type A (PCR) NEGATIVE Influenza Type B (PCR) NEGATIVE RSV RNA Qual (PCR) NEGATIVE SARS-CoV-2 RNA (RT-PCR) NEGATIVE Assessment and Plan (1) Dysarthria: Status: Acute Plan Pt is an 84-year-old female with a PMH significant for?hx of TIA in 2019, iron deficiency anemia, CKD 3, HTN, and gout who presents to the ED with dysarthia after fall at home last evening. Pt is admitted to the hospital for treatment and further evaluation of dysarthria and fall at home concerning for possible acute CVA. 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 Will get MRI of head/brain Start on aspirin and statin Check lipid panel PT/OT consult Neurology consult Monitor on telemetry Elevated CPK CPK 1131 at time of presentation In the setting of fall at home with prolonged downtime Pt will receive gentle IVF Follow CPK Question of hypoxia Pt's O2 readings noted to be as low as 81% on 4L NC Does not appear to be an accurate reading Pt denies SOB or cough; CXR negative for consolidation but possible mild interstitial edema; lungs CTA Pt also noted to constantly fidgeting with O2 sensor; replaced sensor and pt 98% on 2L NC Will check BNP due to question of interstitial edema Titrate suplemental O2 >92, wean as tolerated Hypomagnesemia Magnesium 1.5, received IV supplementation in the ED Follow magnesium Elevated troponins Initial troponin 98.3 with repeat flat at 118.0 Pt asymptomatic and EKG without ischemic changes Likely type 2 setting of increased demand Monitor on telemetry Diet Failed nurse swallow screen Keep NPO for now Formal speech/swallow evaluation Alcohol dependence Family report pt drinks 2+ drinks daily Will monitor on CIWA CKD 3 Creatinine stable and baseline HTN Hold amlodipine and metoprolol for permissive hypertension Mood disorder Continue sertraline once no longer NPO Peripheral neuropathy Continue pregabalin Hx of gout Continue allopurinol Full Code Attending:?Dr. Baeza DVT Prophylaxis: Heparin Pt will require a hospitalization of at least two nights for treatment of persistent dysarthria and difficulty word finding concerning for acute CVA. Pt also has global has weakness and deconditioning with at home. Pt will require hospital level care for additional workup for acute CVA as well as cardiac and neurological monitoring and specialist consultation with Neurology and Physical therapy. Quality Stroke Does the patient have a stroke diagnosis?: No VTE Prior VTE?: No VTE Risk Level:: Medical - moderate - high VTE Device Contraindication: Treatment Not Indicated VTE Drug Contraindication: N/A - Med Ordered
[2024-12-01] MEDS: Magnesium Sulfate/H2O 2 GM/50 ML PIGGYBACK IV (12:13)
--- NOTE | 2024-12-01 12:37 | PM.NEUROCN ---
History of Present Illness Data of Consult Service Date: 12/01/24 Primary Care Provider: Ramsey Gooden MD HPI Reason for consult: Slurred speech 84 years old woman who I saw in emergency room with the 2 daughters. Apparently she suffered from severe underlying arthritis and neuropathy resulting in significant disability and she was drinking alcohol on regular basis living alone was noted to be weak and have fallen and with slurred speech and was brought to emergency room. There was no evidence of seizure-like episode. She was not complaining of any pain. Review of Systems Review of Systems: No recent cold or flu-like illness diarrhea or exposure to new medicine. She was drinking alcohol, as per her daughter's. [facility] Past Medical History Medical History History of cystocele Vitamin D deficiency Major depression in complete remission Lumbar spondylosis Lumbar spinal stenosis Lumbar scoliosis STORMY (iron deficiency anemia) Hypercholesterolemia HTN (hypertension) H/O Clostridium difficile infection Hemorrhoids Avascular necrosis of bone of right hip Diverticulosis Cataract Allergic rhinitis Agoraphobia Spinal stenosis COPD (chronic obstructive pulmonary disease) Anxiety Gout Peripheral neuropathy Chronic kidney disease Dehydration Family History Family History Mother Stroke Surgical History Surgical History History of lumbar fusion History of repair of rectocele History of hysterectomy History of tonsillectomy History of colonoscopy H/O vaginal hysterectomy History of right hip replacement Social History Social History Household Members: None Housing: Condominium Unable to assess alcohol history related to: Unknown Alcohol intake: unknown Patient Tobacco Use Status: Former Tobacco user Tobacco use type: Cigarette Smoked in Last 30 Days: No Use of substances other than those prescribed or required for medical reasons: No Advance Directives: Yes Advance Directives on File: Yes Advance Directives Date on File: 03/02/22 Do you have a plan to hurt others: No Plan service: No Current occupational status: retired and disabled Meds Allergies Allergy/AdvReac Type Severity Reaction Status Date / Time cyclobenzaprine Allergy Intermediate Hallucinati Verified 12/01/24 08:59 ons Opioids - Morphine Analogues AdvReac Intermediate Confusion Verified 12/01/24 08:59 oxycodone AdvReac Hallucinati Verified 12/01/24 08:59 ons Active Medications: Current Medications Magnesium Sulfate (Magnesium Sulfate/H2o) 2 gm in 50 mls @ 25 mls/hr IV ONCE ONE Stop: 12/01/24 13:18 Last Admin: 12/01/24 12:13 Dose: 25 mls/hr Home Medications ?Medication ?Instructions ?Recorded ?Confirmed ?Last Taken ?Type pregabalin 75 mg capsule 1 cap PO DAILY 02/02/22 12/04/23 03/23/23 History sertraline 100 mg tablet 1 tab PO DAILY 02/02/22 12/04/23 03/23/23 History acetaminophen 650 mg 650 mg PO QID PRN Pain 03/24/23 12/04/23 Unknown History tablet,extended release allopurinol 300 mg tablet 300 mg PO DAILY 03/24/23 12/04/23 03/23/23 History amlodipine 2.5 mg tablet 5 mg PO DAILY 04/13/23 12/04/23 Unknown History cholecalciferol (vitamin D3) 25 25 mcg PO DAILY 04/13/23 12/04/23 Unknown History mcg (1,000 unit) capsule (Vitamin D3) cyanocobalamin (vitamin B-12) 1,000 mcg PO DAILY 04/13/23 12/04/23 Unknown History 1,000 mcg tablet (Vitamin B-12) vitamin A-vitamin C-vit E-min 1 tab PO DAILY 04/13/23 12/04/23 Unknown History tablet Physical Exam Vital Signs: Vital Signs: Last Vital Signs Temp 98.4 F 12/01/24 11:45 Pulse 77 12/01/24 11:45 Resp 18 12/01/24 11:45 BP 161/83 H 12/01/24 11:45 Pulse Ox 98 12/01/24 11:45 O2 Del Method Nasal Cannula 12/01/24 11:45 O2 Flow Rate 4 12/01/24 11:45 BMI result Body Mass Index 20.1 Neuro: Other: She was alert and awake little bit anxious. Spontaneity and fluency of speech were okay. She was able to name and repeat. Speech was somewhat hypophonic and slurred. Visual equity was limited probably from underlying macular degeneration. Face was symmetrical. Significant arthritic changes were noted in arms hands feet and legs. Multiple bruises were noted on legs feet and hands. Deep tendon reflexes are absent with flexor plantars. Results Labs 12/01/24 09:00 12/01/24 09:00 Labs: Short CBC 12/01/24 Range/Units 09:00 WBC 7.3 (4.8-10.8) X10*3/uL Hgb 12.4 (12.0-16.0) g/dl Hct 36.3 L (37.0-47.0) % Plt Count 165 (160-400) X10*3/uL BMP 12/01/24 09:00 Sodium 142 Potassium 4.4 Chloride 110 H Carbon Dioxide 22 BUN 42 H Creatinine 1.59 H Calcium 9.4 Cardiac Enzymes 12/01/24 Range/Units 09:00 Total Creatine Kinase 1131 H (26-140) U/L Liver Function 12/01/24 Range/Units 09:00 Total Bilirubin 0.3 (0.0-1.0) mg/dL AST 46 H (5-31) U/L ALT 12 (0-31) U/L Alkaline Phosphatase 136 H (39-117) U/L Albumin 4.4 (3.5-5.0) g/dL Head CT did not reveal any acute abnormality. Moderate diffuse cerebral atrophy was noted. CTA did not reveal any large vessel stenosis. Assessment and Plan (1) Toxic metabolic encephalopathy: Status: Acute 84 years old woman with significant physical disability probably related to chronic arthritis and neuropathy, might also have been drinking alcohol, and cognitive difficulties related to cerebral degeneration came to hospital with change in her speech and weakness. Differential diagnosis would include cerebral infarction and that can be confirmed with a noncontrast MRI of brain. More importantly, because of what look like failure to thrive, social service consultation is requested to assess appropriate place of residence for her. Her risk of falling and injuring her is significant. Procedures Date of Service Date of Service: 12/01/24
--- NOTE | 2024-12-01 13:05 | PHA.MEDREC ---
Addendum entered by Farnaz Quiles RPh 12/01/24 14:02: [facility] reviewed Original Note: Pharmacy Consult ? Medication Reconciliation Pharmacy has completed the medication reconciliation. Spoke with patients family at bedside. She takes pregabalin 75 mg 1 cap daily ( 04/01/24 #180). Family confirmed amlodipine 10 mg daily ( 05/30/24 #90). Family reports she took her medications yesterday morning.
--- OUTSIDE RECORDS SUMMARY | 2024-12-01 13:12 | XMS_ITS ---
Author Organization [facility] Care Team Providers Care Human Resource Statistician Name Role Phone Ela Talley Unavailable Unavailable Emilie Main Unavailable Unavailable Marisol Ramirez Unavailable Unavailable Allergies and adverse reactions No Known Allergies Care Team Name Role Address Phone Organization Dates Emilie Main PCP [address], [place], [address], [place] (Office): : [facility] 03/01/2022 - 03/18/2022 [place], [address], [place] (Office): : [facility] 03/01/2022 - 03/18/2022 Marisol Ramirez [address], [place], [address], [place] (Office): : [facility] 03/01/2022 - 03/18/2022 Immunizations Immunization Status Vaccine Details Vaccine Code CodeSystem Daniel e Notes Tetanus completed Td(adult) unspecified formulation 139 CVX created date: 03/11/2022 administered date: 02/27/2017 Covid-19 Vaccine (Pfizer CVX 208) dose #1 completed SARS-COV-2 (COVID-19) vaccine, mRNA, spike protein, LNP, preservative free, 30 mcg/0.3mL dose 208 CVX created date: 03/11/2022 administered date: 07/29/2020 Covid-19 Vaccine (Pfizer CVX 208) dose #2 completed SARS-COV-2 (COVID-19) vaccine, mRNA, spike protein, LNP, preservative free, 30 mcg/0.3mL dose 208 CVX created date: 03/11/2022 administered date: 08/19/2020 Mental Status Section Date Assessment Total Score Description 03/18/2022 BIMS 14 cognitively int act CAM 0 No delirium ind icated PHQ-9 00 03/05/2022 BIMS 15 cognitively int act CAM 0 No delirium ind icated PHQ-9 16 moderately donald re depression Problems Problem # Description Date of onset Resolved Date Code CodeSystem Concern Status 1 ACUTE RESPIRATORY FAILURE WITH HYPOXIA 03/01/[address] active 2 CHRONIC KIDNEY DISEASE, STAGE 3 UNSPECIFIED 03/01/[address] active 3 CHRONIC KIDNEY DISEASE, UNSPECIFIED 03/01/[address] active 4 CHRONIC OBSTRUCTIVE PULMONARY DISEASE, UNSPECIFIED 03/01/[address] active 5 DIARRHEA, UNSPECIFIED 03/01/[address] active 6 ILEUS, UNSPECIFIED 03/01/[address] active 7 MUSCLE WASTING AND ATROPHY, NOT ELSEWHERE CLASSIFIED, LEFT UPPER ARM 03/01/[address] active 8 MUSCLE WASTING AND ATROPHY, NOT ELSEWHERE CLASSIFIED, RIGHT UPPER ARM 03/01/[address] active 9 OTHER ABNORMALITIES OF GAIT AND MOBILITY 03/01/[address] active 10 OTHER POSTPROCEDURAL COMPLICATIONS AND DISORDERS OF DIGESTIVE SYSTEM 03/01/[address] active 11 OTHER TOXIC ENCEPHALOPATHY 03/01/[address] active 12 PNEUMONIA, UNSPECIFIED ORGANISM 03/01/[address] active 13 PRESSURE ULCER OF UNSPECIFIED BUTTOCK, STAGE 2 03/01/[address] active 14 SEPSIS, UNSPECIFIED ORGANISM 03/01/[address] active 15 UNSPECIFIED ABNORMALITIES OF GAIT AND MOBILITY 03/01/[address] active 16 UNSPECIFIED INTESTINAL OBSTRUCTION, UNSPECIFIED TO PARTIAL VERSUS COMPLETE OBSTRUCTION 03/01/[address] active 17 UNSPECIFIED PROTEIN-CALORIE MALNUTRITION 03/01/[address] active 18 URINARY TRACT INFECTION, SITE NOT SPECIFIED 03/01/[address] active 19 WEAKNESS 03/01/[address] active Reason for Referral No Reasons for Referral Entered Social History Social History Observation Description Start Date End Date Code Code System Current Smoking Status Tobacco smoking consumption unknown 856505456 SNOMED CT Sex Assigned At Female 1940 46897-7 [facility] Gender Identity Vital Signs Code Code System Vitals Name Values and Units Timing Information 41541-1 [facility] Pain Level Value=0.0 03/18/2022 9279-1 [facility] Respiratory Rate Value=18.0 Units=/m in 03/18/2022 8462-4 [facility] Blood Pressure-Diastolic Value=65 Un its=mmHg 03/18/2022 8480-6 [facility] Blood Pressure-Systolic Pwpps=254 Un its=mmHg 03/18/2022 8310-5 [facility] Body Temperature Value=97.5 Units= F 03/18/2022 8867-4 [facility] Heart rate Value=73.0 Units=/min 08/2021 39914-6 [facility] O2 % BldC Oximetry Value=97.0 Units= % 03/18/2022 8302-2 [facility] Height Value=64.0 Units=Inches 03/17/2022 45060-1 [facility] Weight Gbpmz=589.0 Units=Lbs
--- OUTSIDE RECORDS SUMMARY | 2024-12-01 13:12 | XMS_ITS | Clinical Summary ---
Author Organization [facility] Address [address] [place] [address] [address] [place] [address] Phone Care Team Providers Care Patient Resource Coordinator Name Role Phone Ramsey Gooden MD Primary Care Provider [phone] Social History Tobacco Use Types Packs/Day Years Used Date Smoking Tobacco: Never Assessed Comments Unknown Sex and Gender Information Value Date Recorded Sex Assigned at Not on file Legal Sex Female 8:18 AM EST Gender Identity Not on file Sexual Orientation Not on file Plan of Treatment Health Maintenance Due Date Last Done Comments Pneumococcal Vaccine: 50+ Ye ars (2 of 2 - PCV) 07/02/2010 07/02/2009 Influenza Vaccine (#1) 2025 Hepatitis B Vaccine Aged Out No longe r eligible based on patient's age to complete this topic Insurance [facility] Care Teams Patient Resource Coordinator Relationship Specialty Start Date End Date Ramsey Gooden MD [employer] [address] [place] [address] PCP - General Internal Medicine 03/28/23
--- OUTSIDE RECORDS SUMMARY | 2024-12-01 13:12 | XMS_ITS | Clinical Summary ---
Author Organization [facility] Address [address] [place] [address] Phone Care Team Providers Care Party Host/Hostess Name Role Phone Ramsey Gooden MD Primary Care Provider [phone] Social History Tobacco Use Types Packs/Day Years Used Date Smoking Tobacco: Never Assessed Education Answer Date Recorded Are you interested in more education? Not on gallito e 03/27/2023 Are you concerned about learning? Not on file 03/27/2023 No 03/27/2023 No 03/27/2023 Digital Access Answer Date Recorded No 03/27/2023 No 03/27/2023 Reliable internet access at home? Not on file 03/27/2023 Device with a working camera? Not on file Comments Unknown Sex and Gender Information Value Date Recorded Sex Assigned at Not on file Legal Sex Female 10:11 PM EDT Gender Identity Not on file Sexual Orientation Not on file Plan of Treatment Not on file Medical Devices Not on file Insurance [employer] POS [place] [address] [place] [address] MEDICARE POS [place] [address] [place] [address] MEDICARE POS [address] [place] [address] MEDICARE [place] [address] [place] [place] [address] MEDICARE POS PPO REPLACEMENT MEDICARE POS [place] [address] [place] [address] MEDICARE POS [place] [address] [place] [address] MEDICARE POS PPO REPLACEMENT [employer] POS PPO REPLACEMENT Care Teams Party Host/Hostess Relationship Specialty Start Date End Date Ramsey Gooden MD [address] [place] [id number] PCP - General Internal Medicine 10/02/17 Additional Source Comments The information contained in this document represents components of the legal health record. It is not the complete legal health record.[facility]
[2024-12-01] MEDS: Lactated Ringers 1,000 ML 100 ML IVCONT (13:26)
--- NOTE | 2024-12-01 13:26 | MHC.EDTECH ---
patient was incontinent of urine clean,and changed patient, as well apply purwick on patient. reposition patient in bed gave patient warm blanket. patient is calm. nurse aware
--- NOTE | 2024-12-01 13:38 | PC.NURSE ---
MRI form filled/faxed/placed in pt's chart. LR currently infusing @ 100mls/hr.
[2024-12-01 14:20] LABS: Appearance Urine Clear; Glucose Urine UA Negative (Negative); PH 5.5 (5.0-9.0); Specific Gravity - Urine 1.025 (1.005-1.025); UMIC TRIGGER UACC YES
[2024-12-01 14:30] LABS: Cannabinoid Screen Urine Not Detected (Not Detect)
[2024-12-01 14:43] LABS: Cholesterol 283 mg/dL (<200); HDL Cholesterol 139 mg/dL (>40); Triglycerides 61 mg/dL (<150)
[2024-12-01 14:51] LABS: B Type Natriuretic Peptide 685 pg/mL (<100)
--- NOTE | 2024-12-01 15:00 | PC.NURSE ---
ASA not administered as patient is still unable to tolerate water intake. unable to hold water adequately in mouth. wet cough noted. provider notified/aware. pt given PRN morphine so MRI can be completed. pending transfer to MRI at this time.
--- NOTE | 2024-12-01 15:12 | MHC.SLORD ---
Speech Language Pathology Order Status: THINNER SPRAYER to assess 12/02
--- NOTE | 2024-12-01 15:54 | PC.NURSE ---
Pt to go to MRI, Per MD Angel, okay to come off tele monitor while in MRI and transport to and from and up to floor, all jewelry and stickers removed from patient at this time while awaiting transport. All belongings and paperwork with patient, pt to go to floor after MRI
--- NOTE | 2024-12-01 18:10 | PC.NURSE ---
patient refusing MRI at this time. Provider notified
[2024-12-01] MEDS: 0.9 % Sodium Chloride Flush 3 ML SYRINGE IVFLUSH (20:17)
[2024-12-01] MEDS: Lactated Ringers 500 ML 50 ML IVCONT (20:17)
[2024-12-02 02:58] VITALS: BP 174/96; PULSE 73; RESP 18; TEMP 37; O2SAT 92
--- NOTE | 2024-12-02 07:00 | CA_ITS ---
Transthoracic Echocardiogram Patient (Last, First, Middle): Nova Wei C Gender: Female Date of : 1940 Age: 84 Procedure Date: 12/02/2024 Procedure Type: Transthoracic [place]ogram [place] [facility] [place]: 165.1 cm Weight: 54.43 kg BSA: 1.59 m2 Heart Rate: bpm BP: 140 / 72 mmHg Assistant Purchasing Manager: Referring MD: Zeny THRASHER Symptoms: CVA, elevated BNP Study Quality: Adequate ECG Rhythm: Sinus Conclusions: - Normal left ventricular size and systolic function. There is mildly increased left ventricular wall thickness. The visually estimated ejection fraction is between 60-65%. - Normal right ventricular cavity size and systolic function. - The left atrium is severely dilated. - There is severe mitral annular calcification. There is severe mitral valve regurgitation. - Mild pulmonary hypertension is present. Findings Left Ventricle Normal left ventricular size and systolic function. There is mildly increased left ventricular wall thickness. The visually estimated ejection fraction is between 60-65%. There is no evidence of regional wall motion abnormalities. Diastolic function is indeterminate on the basis of available data. Right Ventricle Normal right ventricular cavity size and systolic function. Atria The left atrium is severely dilated. The right atrium is normal in size. Aortic Valve There is a normal trileaflet aortic valve. There is mild calcification of the aortic valve. There is no aortic valve stenosis. There is no aortic valve regurgitation. Mitral Valve There is severe mitral annular calcification. There is severe mitral valve regurgitation. There is no mitral valve stenosis. Pulmonic Valve The pulmonic valve is likely normal. There is trace pulmonic valve regurgitation. Tricuspid Valve Normal tricuspid valve structure. There is trace tricuspid valve regurgitation. The right ventricular systolic pressure is 39 mmHg. Normal right atrial pressure. Mild pulmonary hypertension is present. Great Vessels All visible segments of the aorta are normal in size. The visualized portions of the pulmonary artery and branches are normal. Venous The inferior vena cava is normal in size and collapses greater than 50% with inspiration. Pericardium/Pleural There is no evidence of pericardial effusion. Prior Study Comparison Changes noted compared to prior study dated: 10/17/2018. Severe MAC, severe MR, mild pulm HTN. Measurements 2D Linear Measurements IVSd: 1.04 0.6-0.9/0.6-1.0 cm LVIDd: 4.72 3.9-5.3/4.2-5.9 cm LVIDd Index: 2.97 2.4-3.2/2.2-3.1 cm/m2 LVIDs: 2.96 2.0-3.6 cm LVPWd: 1.05 0.7-1.1 cm Ao Root: 2.60 2.1-3.5 cm LA Diam: 5.30 2.7-3.8/3.0-4.0 cm LAIDs Index: 3.33 1.5-2.3 cm/m2 LV Mass: 219.09 67-162/88-224 g LV Mass Index: 137.79 43-95/49-115 g/m2 LVOT Diam: 2.00 3.0+(-)1.3 cm Mitral Valve MV VTI: 0.44 MV Pk Jonathan: 1.42 MV Mn Jonathan: 0.89 MV Pk Grad: 8.00 MV Mn Grad: 4.00 MV Pk E: 1.23 MV PK A: 1.07 MV Decel Time: 109.00 E/A: 1.10 E'Lateral: 10.20 E'Medial: 3.26 E/E' Med: 37.70 E/E' Lat: 12.10 PHT: 32.00 MVA PHT: 6.88 MVA Continuity: 2.22 Decel Titus: 11.36 Aortic Valve AoV Pk Jonathan: 1.99 AoV Mn Jonathan: 1.28 AoV VTI: 0.45 AoV Pk Grad: 16.00 Aov Mn Grad: 8.00 GIOVANI Cont.VTI: 2.17 LVOT LVOT Pk Jonathan: 1.45 LVOT Mn Jonathan: 0.86 LVOT VTI: 0.31 LVOT Pk Grad: 8.00 LVOT Mn Grad: 4.00 LVOT Diam: 2.00 LVOT Area: 3.14 Diastolic Function MV Pk E: 1.23 MV Pk A: 1.07 E/A: 1.10 E'Medial: 3.26 E/E' Med: 37.70 E' Laterial: 10.20 E/E' Lat: 12.10 Right Ventricle TAPSE (mm): 27.00 Tricuspid Valve TR Pk Jonathan: 3.00 TR Pk Grad: 36.00 RA Press: 3.00 RVSP: 39.00 Great Vessels Aorta Ao Root-2D: 2.60 2.0-3.7 cm Ao Asc: 3.60 2.1-3.4 cm Pulmonary Valve PV Pk Jonathan: 0.88 Peak PV Grad: 3.00 Updated in Other Vendor System with Status of Final Karthikeyan Sheehan MD electronically signed on 12/03/2024 9:14:46 PM with status of Final
[2024-12-02 07:03] VITALS: BP 140/72; PULSE 74; RESP 17; TEMP 36.7; O2SAT 93
[2024-12-02 07:11] LABS: Anion Gap 15 (12-20); Blood Urea Nitrogen 33 mg/dL (9-16); Calcium 9.5 mg/dL (8.4-10.2); Carbon Dioxide 24 mmol/L (22-29); Chloride 109 mmol/L (96-108); Creatinine Clr Calc Pharmacy 27.9; Estimated Glomerular Filt Rate 38; Magnesium 2.0 mg/dL (1.6-2.6); Potassium 4.3 mmol/L (3.3-5.1); Sodium 144 mmol/L (135-145)
[2024-12-02 07:37] LABS: Troponin-I High Sensitivity 193.5 ng/L (<3.5-17.0)
--- NOTE | 2024-12-02 09:07 | MHC.CM.PN ---
Addendum entered by Michelle Wallace 12/02/24 09:35: [facility] is not in contract with Patient's insurance; additional referrals have been made. Original Note: CM met with Patient and her Daughter/Asha at bedside and addressed the IMM, providing them with the original and a copy has been placed on the chart. Patient lives alone in a condo and is w/c dependent for mobility. Patient will benefit from a PT Eval to assist with disposition (she requested [facility] and does NOT want to go to [facility]). CM has initiated and will follow for dc planning.PCP is Dr. Ramsey Gooden and Daughter/Sathish is HCP. Daughter will transport to home at time of dc.
[2024-12-02] MEDS: 0.9 % Sodium Chloride Flush 3 ML SYRINGE IVFLUSH (09:37)
[2024-12-02] MEDS: Metoprolol Succinate ER 50 MG TAB.ER.24H PO (09:37)
[2024-12-02 11:14] VITALS: BP 130/70; PULSE 71; RESP 16; TEMP 36.8; O2SAT 97
--- NOTE | 2024-12-02 13:00 | PC.NURSE ---
Patient unable to stay still and lay flat for MRI despite being medicated for pain, patient stated the medication helped with pain but not enough for her to tolerate the position she needed to be in for the test. Today was 2nd unsuccessful attempt. Provider was notified.
--- NOTE | 2024-12-02 15:15 | HO.PM.IMPN ---
Subjective Subjective Date of Service: 12/02/24 Interval History: Patient seen and examined. Events from yesterday noted Review of Systems Negative except for that which is stated in the HPI. Physical Exam Vital Signs: Vital Signs: Last Vital Signs Temp 98.3 F 12/02/24 11:14 Pulse 71 12/02/24 11:14 Resp 16 12/02/24 11:14 BP 130/70 12/02/24 11:14 Pulse Ox 97 12/02/24 11:14 O2 Del Method Nasal Cannula 12/02/24 11:14 O2 Flow Rate 2 12/02/24 11:14 BMI result Body Mass Index 20.1 Objective Data Active Medications Acetaminophen (Acetaminophen 325 Mg Tablet) 650 mg PO Q6H PRN PRN Reason: Pain, Mild 1-3,fever,headache Allopurinol (Allopurinol 300 Mg Tablet) 300 mg PO DAILY [facility] Last Admin: 12/02/24 09:37 Dose: 300 mg Documented By: ALEXANDRA Aspirin (Aspirin Enteric Coated 81 Mg Tablet.) 81 mg PO DAILY [facility] Last Admin: 12/02/24 09:37 Dose: Not Given Documented By: ALEXANDRA Non-Admin Reason: Patient Refused Atorvastatin Calcium (Atorvastatin Calcium 40 Mg Tablet) 40 mg PO BEDTIME [facility] Last Admin: 12/01/24 20:16 Dose: 40 mg Documented By: IZZY Calcium Carbonate (Calcium Carbonate 750 Mg Tab.Chew) 750 mg PO Q4H PRN PRN Reason: Heartburn Cyanocobalamin (Cyanocobalamin (Vitamin B-12) 1,000 Mcg Tablet) 1,000 mcg PO DAILY [facility] Last Admin: 12/02/24 09:37 Dose: 1,000 mcg Documented By: ALEXANDRA Heparin Sodium (Porcine) (Heparin Sodium,Porcine 5,000 Unit/Ml Vial) 5,000 unit SUBCUT Q12H [facility] Last Admin: 12/02/24 05:54 Dose: 5,000 unit Documented By: IZZY Magnesium Hydroxide (Milk Of Magnesia 30 Ml Oral.Susp) 30 ml PO DAILY PRN PRN Reason: Constipation Melatonin (Melatonin 3 Mg Tablet) 6 mg PO BEDTIME PRN PRN Reason: Insomnia Metoprolol Succinate (Metoprolol Succinate Er 50 Mg Tab.Er.24h) 50 mg PO DAILY [facility]; Protocol Last Admin: 12/02/24 09:37 Dose: 50 mg Documented By: ALEXANDRA Morphine Sulfate (Morphine Sulfate 2 Mg/Ml Cartridge) 2 mg IVPUSH ONCE PRN; Protocol PRN Reason: Prior to MRI Last Admin: 12/01/24 14:59 Dose: 2 mg Documented By: ADAM Non-Formulary Medication (Vitamin A-Vitamin C-Vit E-Min) 1 tab PO DAILY [facility] Ondansetron HCl (Ondansetron Hcl 4 Mg/2 Ml Vial) 4 mg IVPUSH Q8H PRN PRN Reason: Nausea and Vomiting Pregabalin (Pregabalin 75 Mg Capsule) 75 mg PO DAILY [facility] Last Admin: 12/02/24 09:36 Dose: 75 mg Documented By: ALEXANDRA Sertraline HCl (Sertraline Hcl 100 Mg Tablet) 100 mg PO DAILY [facility] Last Admin: 12/02/24 09:37 Dose: 100 mg Documented By: ALEXANDRA Sodium Chloride (0.9 % Sodium Chloride Flush 3 Ml Syringe) 3 ml IVFLUSH QSHIFT [facility] Last Admin: 12/02/24 09:37 Dose: 3 ml Documented By: ALEXANDRA Vitamin D (Cholecalciferol (Vitamin D3) 25 Mcg Tablet) 25 mcg PO DAILY [facility] Last Admin: 12/02/24 09:37 Dose: 25 mcg Documented By: ALEXANDRA Labs 12/01/24 09:00 12/02/24 06:07 Labs: Laboratory Results - last 24 hr 12/02/24 06:07 Hold Purple Top SEE NOTE Anion Gap 15 Estim Creat Clear Calc 27.9 Estimated GFR 38 Random Glucose 109 Calcium 9.5 Magnesium 2.0 Total Creatine Kinase 567 H Assessment and Plan (1) Dysarthria: Status: Acute Plan Pt is an 84-year-old female with a PMH significant for?hx of TIA in 2019, iron deficiency anemia, CKD 3, HTN, and gout who presents to the ED with dysarthia after fall at home last evening. Pt is admitted to the hospital for treatment and further evaluation of dysarthria and fall at home concerning for possible acute CVA. 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 Continue aspirin and statin PT/OT consult Neurology assessment noted. She will likely need rehab. Elevated CPK CPK 1131 to 567 today In the setting of fall at home with prolonged downtime Pt will receive gentle IVF Follow CPK Question of hypoxia Pt's O2 readings noted to be as low as 81% on 4L NC Does not appear to be an accurate reading Pt denies SOB or cough; CXR negative for consolidation but possible mild interstitial edema; lungs CTA Pt also noted to constantly fidgeting with O2 sensor; replaced sensor and pt 98% on 2L NC improved Hypomagnesemia Magnesium 1.5 today 2.0 Elevated troponins Initial troponin 98.3 with repeat flat at 118.0, and 193. Pt asymptomatic and EKG without ischemic changes Likely type 2 setting of increased demand Monitor on telemetry Diet Failed nurse swallow screen Keep NPO for now Formal speech/swallow evaluation Alcohol dependence Family report pt drinks 2+ drinks daily Will monitor on CIWA CKD 3 Creatinine stable and baseline HTN Hold amlodipine and metoprolol for permissive hypertension Mood disorder Continue sertraline once no longer NPO Peripheral neuropathy Continue pregabalin Hx of gout Continue allopurinol Rib pain, patient could not tolerate. Position for x-ray the exam was suboptimal. We will reassess Full Code Attending:?Dr. Baeza DVT Prophylaxis: Heparin She will likely need to go to rehab Quality Stroke Does the patient have a stroke diagnosis?: No VTE Prior VTE?: No VTE Risk Level:: Medical - moderate - high VTE Device Contraindication: Treatment Not Indicated VTE Drug Contraindication: N/A - Med Ordered
[2024-12-02 16:00] VITALS: BP 178/87; PULSE 79; RESP 18; TEMP 36.3; O2SAT 92
--- NOTE | 2024-12-02 16:25 | MHC.SLORD ---
Speech Language Pathology Order Status: Pt was medicated this afternoon, not able to participate in clinical bedside swallow evaluation. MAGNETIC OBSERVER to re-assess tomorrow.
[2024-12-02 20:00] VITALS: BP 186/91; PULSE 80; RESP 16; TEMP 36.9; O2SAT 95
[2024-12-02 23:42] VITALS: BP 180/90; PULSE 81; RESP 16; TEMP 37; O2SAT 97
[2024-12-03] VITALS (10 sets, daily range): BP systolic 118–180; BP diastolic 71–100; PULSE 63–88; RESP 16–18; TEMP 36.2–37.2; O2SAT 90–98
[2024-12-03] MEDS: 0.9 % Sodium Chloride Flush 3 ML SYRINGE IVFLUSH ×3 (00:38→16:27)
[2024-12-03 06:52] LABS: Anion Gap 20 (12-20); Blood Urea Nitrogen 28 mg/dL (9-16); Calcium 9.8 mg/dL (8.4-10.2); Carbon Dioxide 22 mmol/L (22-29); Chloride 106 mmol/L (96-108); Creatinine Clr Calc Pharmacy 30.4; Estimated Glomerular Filt Rate 42; Potassium 4.2 mmol/L (3.3-5.1); Sodium 144 mmol/L (135-145)
[2024-12-03] MEDS: Metoprolol Succinate ER 50 MG TAB.ER.24H PO (09:30)
[2024-12-03] MEDS: Aspirin Enteric Coated 81 MG TABLET.DR PO (09:30)
--- NOTE | 2024-12-03 13:19 | MHC.SL.SWA ---
Speech Pathologist Impression: Risk of Aspiration, Oropharyngeal Dysphagia Dysphasia Diet Status: START ON NDD2/HTL Liquid Consistency and Strategies for Safe Swallow: Liquid Intake Recommendation: Honey Thick Solid Food Consistency: Dietary Recommendations: Grnd/Mech Altered (NDD2) Additional Modifications to Solid Foods: Patient is admitted with concern of acute CVA, unable to cooperate for MRI as of yet. Patient presents with mildly dysarthric speech, RN reported word finding difficulty as well, and presenting with mild to moderate oropharyngeal phase dysphagia. 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 Patient w/ slow and delayed oral phase, marked by weak labial seal/oral containment, slowed and prolonged chewing, notable oral residue on trials of harder solids, which did clear with bites of puree. Overt s/s of aspiration evident after trials of thin and nectar thick consistencies. Patient tolerated honey thick liquids w/o any further coughing or throat clearing. Patient is recommended a GROUND/MECH ALTERED diet (NDD2) and HONEY THICK liquids, pills WHOLE or CRUSHED in PUREE. Patient is encouraged to feed herself when possible, but will need assistance throughout meal. Cue patient to chew well, take small bites, and alternate with sips of liquid. AVOID STRAWS. Oral Medication Intake: Whole with Puree Please contact the pharmacy regarding appropriate crushable or liquid drug formulations that are available whenever modified delivery is recommended. Supervision While Eating and Drinking for Safe Swallow: Direct Supervision (1:1) Recommendation for Speech: Inpatient Speech Therapy Speech Therapy through [facility] Speech Therapy through Rehab Facility Comment: MAKING DEPARTMENT PREPARER will continue to follow to monitor PO tolerance and re-assess feeding needs. Patient will likely need continued speech therapy at the next level of care for dysarthria and dysphagia. Frequency/Duration: M-F Date Range for Service Req: Timeline to reassess: Tier Lift Truck Operator Clinican/Clinical Fellow: No Supervisory Statement: I have reviewed and agree with the student/clinical fellow's documentation: N/A Speech Language Pathologist: Violeta Ga M.A., CCC-MAKING DEPARTMENT PREPARER
[2024-12-03] MEDS: Thiamine HCL 200 MG in 0.9 % Sodium Chloride 100 ML 204 MG IV (16:27)
--- NOTE | 2024-12-03 17:30 | P.PNIM_ITS ---
Subjective Subjective Date of Service: 12/03/24 Interval History: Patient seen and examined No new events overnight. Generalized weak Review of Systems Review of Systems: Yes all other systems are reviewed and are negative Physical Exam 2 Exam: Exam: Appearance: Alert.? Orientedx2 cvs: rrr, [id number] . res: clear to auscultation ,no rhonchii or wheezing abd: no rebound or guarding ,nt, bs present. ext pulses present , no cyanosis neuro: nonfocal. Vital Signs: Vital Signs: Last Vital Signs Temp 97.3 F 12/03/24 15:10 Pulse 80 12/03/24 15:10 Resp 18 12/03/24 15:10 BP 118/73 12/03/24 15:10 Pulse Ox 94 12/03/24 15:10 O2 Del Method Room Air 12/03/24 15:10 O2 Flow Rate 2 12/03/24 08:00 BMI result Body Mass Index 20.1 Objective Data Active Medications Acetaminophen (Acetaminophen 325 Mg Tablet) 650 mg PO Q6H PRN PRN Reason: Pain, Mild 1-3,fever,headache Allopurinol (Allopurinol 300 Mg Tablet) 300 mg PO DAILY [facility] Last Admin: 12/03/24 09:31 Dose: 300 mg Documented By: KARO Amlodipine Besylate (Amlodipine Besylate 5 Mg Tablet) 5 mg PO DAILY [facility]; Protocol Last Admin: 12/03/24 09:31 Dose: 5 mg Documented By: KARO Aspirin (Aspirin Enteric Coated 81 Mg Tablet.) 81 mg PO DAILY [facility] Last Admin: 12/03/24 09:30 Dose: 81 mg Documented By: KARO Atorvastatin Calcium (Atorvastatin Calcium 40 Mg Tablet) 40 mg PO BEDTIME [facility] Last Admin: 12/02/24 22:03 Dose: Not Given Documented By: LISA Non-Admin Reason: Patient Condition Contraindication Calcium Carbonate (Calcium Carbonate 750 Mg Tab.Chew) 750 mg PO Q4H PRN PRN Reason: Heartburn Cyanocobalamin (Cyanocobalamin (Vitamin B-12) 1,000 Mcg Tablet) 1,000 mcg PO DAILY [facility] Last Admin: 12/03/24 09:30 Dose: 1,000 mcg Documented By: KARO Heparin Sodium (Porcine) (Heparin Sodium,Porcine 5,000 Unit/Ml Vial) 5,000 unit SUBCUT Q12H [facility] Last Admin: 12/03/24 06:17 Dose: 5,000 unit Documented By: LISA Thiamine HCl 200 mg/ Sodium (Chloride) 102 mls @ 204 mls/hr IV Q8H [facility] Last Infusion: 12/03/24 17:04 Dose: Infused Documented By: BILLY Magnesium Hydroxide (Milk Of Magnesia 30 Ml Oral.Susp) 30 ml PO DAILY PRN PRN Reason: Constipation Melatonin (Melatonin 3 Mg Tablet) 6 mg PO BEDTIME PRN PRN Reason: Insomnia Metoprolol Succinate (Metoprolol Succinate Er 50 Mg Tab.Er.24h) 50 mg PO DAILY [facility]; Protocol Last Admin: 12/03/24 09:30 Dose: 50 mg Documented By: KARO Morphine Sulfate (Morphine Sulfate 2 Mg/Ml Cartridge) 2 mg IVPUSH ONCE PRN; Protocol PRN Reason: Prior to MRI Last Admin: 12/01/24 14:59 Dose: 2 mg Documented By: ADAM Ondansetron HCl (Ondansetron Hcl 4 Mg/2 Ml Vial) 4 mg IVPUSH Q8H PRN PRN Reason: Nausea and Vomiting Pregabalin (Pregabalin 75 Mg Capsule) 75 mg PO DAILY [facility] Last Admin: 12/03/24 09:30 Dose: 75 mg Documented By: KARO Sertraline HCl (Sertraline Hcl 100 Mg Tablet) 100 mg PO DAILY [facility] Last Admin: 12/03/24 09:31 Dose: 100 mg Documented By: KARO Sodium Chloride (0.9 % Sodium Chloride Flush 3 Ml Syringe) 3 ml IVFLUSH QSHIFT [facility] Last Admin: 12/03/24 16:27 Dose: 3 ml Documented By: BILLY Vitamin D (Cholecalciferol (Vitamin D3) 25 Mcg Tablet) 25 mcg PO DAILY [facility] Last Admin: 12/03/24 09:30 Dose: 25 mcg Documented By: KARO Labs 12/01/24 09:00 12/03/24 05:50 Labs: Laboratory Results - last 24 hr 12/03/24 05:50 Hold Purple Top SEE NOTE Anion Gap 20 Estim Creat Clear Calc 30.4 Estimated GFR 42 Random Glucose 118 H Calcium 9.8 Assessment and Plan (1) Elevated troponin: Status: Acute (2) Hypomagnesemia: Status: Acute Assessment and Plan: 84-year-old female with a PMH significant for?hx of TIA in 2020, iron deficiency anemia, CKD 3, HTN, and gout who presents to the ED with dysarthia after fall at home last evening. Pt is admitted to the hospital for treatment and further evaluation of dysarthria and fall at home concerning for possible acute CVA. 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 Continue aspirin and statin PT/OT consult Neurology assessment noted. She will likely need rehab. Elevated CPK CPK 1131 to 567 . In the setting of fall at home with prolonged downtime Follow CPK encourged for po hydration -free water 250 ml po q6h. Question of hypoxia Pt's O2 readings noted to be as low as 81% on 4L NC Does not appear to be an accurate reading Pt denies SOB or cough; CXR negative for consolidation but possible mild interstitial edema; lungs CTA Pt also noted to constantly fidgeting with O2 sensor; replaced sensor and pt 94% on room air improved. Hypomagnesemia Magnesium 1.5 today 2.0 Elevated troponins Pt asymptomatic and EKG without ischemic changes though to be Likely type 2 setting of increased demand Monitor on telemetry Diet Failed nurse swallow screen Keep NPO for now Formal speech/swallow evaluation Alcohol dependence Family report pt drinks 2+ drinks daily Strongly advised to abstain from alcohol Thiamine, folic acid Currently does not seem to be withdrawing. CKD 3 Creatinine stable and baseline HTN Hold amlodipine and metoprolol for permissive hypertension Mood disorder Continue sertraline. Peripheral neuropathy Continue pregabalin Hx of gout Continue allopurinol Rib pain, patient could not tolerate. No acute findings in the thorax. No definite rib fracture seen on these 2 limited projections. Full Code DVT Prophylaxis: Heparin She will likely need to go to rehab Above was discussed with patient family at bedside in detail length. Quality Stroke Does the patient have a stroke diagnosis?: No VTE Prior VTE?: No VTE Risk Level:: Medical - moderate - high VTE Device Contraindication: Treatment Not Indicated VTE Drug Contraindication: N/A - Med Ordered
[2024-12-04] MEDS: Thiamine HCL 200 MG in 0.9 % Sodium Chloride 100 ML 204 MG IV ×3 (00:47→15:35)
[2024-12-04] MEDS: 0.9 % Sodium Chloride Flush 3 ML SYRINGE IVFLUSH ×3 (00:51→15:36)
[2024-12-04 03:18] VITALS: BP 133/76; PULSE 65; RESP 16; TEMP 36.2; O2SAT 91
[2024-12-04 07:02] LABS: B Type Natriuretic Peptide 438 pg/mL (<100)
[2024-12-04 07:13] VITALS: BP 139/69; PULSE 66; RESP 20; TEMP 36.1; O2SAT 93
[2024-12-04] MEDS: Aspirin Enteric Coated 81 MG TABLET.DR PO (07:54)
[2024-12-04] MEDS: Metoprolol Succinate ER 50 MG TAB.ER.24H PO (07:54)
--- NOTE | 2024-12-04 10:27 | MHC.CM.PN ---
Addendum entered by Michelle Wallace 12/04/24 16:16: PT is recommending STR and Patient and her 2 Daughters are agreeable to that plan([facility] is first choice).CM will continue to follow. Original Note: Per ROUNDS discussion, Patient is not yet medically cleared for dc (pending Cardiology Consult);[facility] has accepted Patient and has initiated [facility] auth. CM will continue to follow.
[2024-12-04 11:12] VITALS: BP 94/60; PULSE 69; RESP 16; TEMP 36.8; O2SAT 95
[2024-12-04 12:13] LABS: Appearance Urine Clear; Glucose Urine UA Negative (Negative); PH 5.5 (5.0-9.0); Specific Gravity - Urine 1.015 (1.005-1.025); UMIC TRIGGER UA YES
--- NOTE | 2024-12-04 12:53 | MHC.SL.SWA ---
Speech Pathologist Impression: Moderate oropharyngeal dysphagia Risk of Aspiration Due to: Weakness and delayed oropharyngeal coordination Decreased overall awareness Dysphasia Diet Status: Recc NDD2 with HTL, 1:1 feeding, cue pt to chew well, encourage slow pacing, monitor tolerance closely. HEAVY MOBILE EQUIPMENT REPAIRER following Liquid Consistency and Strategies for Safe Swallow: Liquid Intake Recommendation: Honey Thick Liquid Intake Strategies: Small Sips Solid Food Consistency: Dietary Recommendations: Grnd/Mech Altered (NDD2) Additional Modifications to Solid Foods: Oral Medication Intake: Whole with Puree Please contact the pharmacy regarding appropriate crushable or liquid drug formulations that are available whenever modified delivery is recommended. Compensatory Strategies and Precautions to be Taken for Safe Swallow: Sitting Upright (90 deg) Small Bites and Sips Alternate Liquids/Solids Supervision While Eating and Drinking for Safe Swallow: Total Assistance (1:1) Foods to Avoid: Swallowing Recommended Treatments: Compens. Strategy Educat. Recommendation for Speech: Inpatient Speech Therapy Speech Therapy through [facility] Speech Therapy through Rehab Facility Comment:Pt seen for dysphagia re-assessment 12/04. Daughter at bedside. Pt currently on HTL with NDD2. Pt tolerating downgraded solids with adequate oropharyngeal coordination. Trials of NTL presented. Oral phase mildly impaired with anterior loss of fluid d/t labial weakness, delayed transit upon initiation of bolus propulsion. Delayed laryngeal elevation and trigger of pharyngeal swallow resulted in audible gulping swallow and mild vocal wetness. Pt tolerated sips of HTL without overt s/s of aspiration as viscosity consistent with pt oropharyngeal timing and control. HEAVY MOBILE EQUIPMENT REPAIRER provided education to pt daughters on recc diet/safety precautions in presence of moderate dysphagia. Daughters verbalize understanding and agree with recommendations. Pt will need HEAVY MOBILE EQUIPMENT REPAIRER tx upon d/c for dysphagia and dysarthria. MD and RN consulted Frequency/Duration: M-F Date Range for Service Req: Timeline to reassess: Unitizer Clinican/Clinical Fellow: No Supervisory Statement: I have reviewed and agree with the student/clinical fellow's documentation: N/A Speech Language Pathologist: Ana M Frazier M.S., [facility]-HEAV[employer] MOBILE EQUIPMENT REPAIRER
--- NOTE | 2024-12-04 13:51 | PM.CNCAR ---
History of Present Illness History of Present Illness Date of Service: 12/04/24 Requesting physician: Tayo Williamson Chief complaint: MR Narrative: [age] year female who presented with stroke and echocardiography has shown severe mitral valve regurgitation with severe mitral annular calcification. The patient has dysarthria and word-finding difficulty currently. She is weak on the right side of the body. She was found to have a right internal carotid artery stenosis which was incidentally picked up by the CTA. She understands but is unable to communicate currently due to stroke. Blood pressure is low. Denying any chest pain or shortness of breath. Did not have any similar symptoms 4. No symptoms/signs of heart failure. Daughter at bedside who answered many questions for Ms. Wei. 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 Lumbar spondylosis Lumbar spinal stenosis Lumbar scoliosis STORMY (iron deficiency anemia) Hypercholesterolemia HTN (hypertension) H/O Clostridium difficile infection Hemorrhoids Avascular necrosis of bone of right hip Diverticulosis Cataract Allergic rhinitis Agoraphobia Spinal stenosis COPD (chronic obstructive pulmonary disease) Anxiety Gout Peripheral neuropathy Chronic kidney disease Dehydration Family History Family History Mother Stroke Surgical History Surgical History History of lumbar fusion History of repair of rectocele History of hysterectomy History of tonsillectomy History of colonoscopy H/O vaginal hysterectomy History of right hip replacement Social History Social History Household Members: None Housing: Condominium Do you presently have visiting nurse or other home services: No Unable to assess alcohol history related to: Unknown Alcohol intake: unknown Patient Tobacco Use Status: Former Tobacco user Tobacco use type: Cigarette Advance Directives Date on File: 03/02/22 service: No Current occupational status: retired and disabled Meds Allergies Allergy/AdvReac Type Severity Reaction Status Date / Time cyclobenzaprine Allergy Intermediate Hallucinati Verified 12/01/24 08:59 ons Opioids - Morphine Analogues AdvReac Intermediate Confusion Verified 12/01/24 08:59 oxycodone AdvReac Hallucinati Verified 12/01/24 08:59 ons Active Medications: Current Medications Acetaminophen (Acetaminophen 325 Mg Tablet) 650 mg PO Q6H PRN PRN Reason: Pain, Mild 1-3,fever,headache Last Admin: 12/03/24 20:37 Dose: 650 mg Allopurinol (Allopurinol 300 Mg Tablet) 300 mg PO DAILY [facility] Last Admin: 12/04/24 07:54 Dose: 300 mg Amlodipine Besylate (Amlodipine Besylate 5 Mg Tablet) 5 mg PO DAILY [facility]; Protocol On Hold: 12/04/24 13:15 Last Admin: 12/04/24 07:54 Dose: 5 mg Aspirin (Aspirin Enteric Coated 81 Mg Tablet.Dr) 81 mg PO DAILY [facility] Last Admin: 12/04/24 07:54 Dose: 81 mg Atorvastatin Calcium (Atorvastatin Calcium 40 Mg Tablet) 40 mg PO BEDTIME [facility] Last Admin: 12/03/24 20:29 Dose: 40 mg Calcium Carbonate (Calcium Carbonate 750 Mg Tab.Chew) 750 mg PO Q4H PRN PRN Reason: Heartburn Cyanocobalamin (Cyanocobalamin (Vitamin B-12) 1,000 Mcg Tablet) 1,000 mcg PO DAILY [facility] Last Admin: 12/04/24 07:54 Dose: 1,000 mcg Heparin Sodium (Porcine) (Heparin Sodium,Porcine 5,000 Unit/Ml Vial) 5,000 unit SUBCUT Q12H [facility] Last Admin: 12/04/24 05:37 Dose: 5,000 unit Thiamine HCl 200 mg/ Sodium (Chloride) 102 mls @ 204 mls/hr IV Q8H [facility] Last Infusion: 12/04/24 08:48 Dose: Infused Magnesium Hydroxide (Milk Of Magnesia 30 Ml Oral.Susp) 30 ml PO DAILY PRN PRN Reason: Constipation Melatonin (Melatonin 3 Mg Tablet) 6 mg PO BEDTIME PRN PRN Reason: Insomnia Last Admin: 12/03/24 20:29 Dose: 6 mg Metoprolol Succinate (Metoprolol Succinate Er 50 Mg Tab.Er.24h) 50 mg PO DAILY [facility]; Protocol Last Admin: 12/04/24 07:54 Dose: 50 mg Morphine Sulfate (Morphine Sulfate 2 Mg/Ml Cartridge) 2 mg IVPUSH ONCE PRN; Protocol PRN Reason: Prior to MRI Last Admin: 12/01/24 14:59 Dose: 2 mg Ondansetron HCl (Ondansetron Hcl 4 Mg/2 Ml Vial) 4 mg IVPUSH Q8H PRN PRN Reason: Nausea and Vomiting Pregabalin (Pregabalin 75 Mg Capsule) 75 mg PO DAILY [facility] Last Admin: 12/04/24 07:54 Dose: 75 mg Sertraline HCl (Sertraline Hcl 100 Mg Tablet) 100 mg PO DAILY [facility] Last Admin: 12/04/24 08:48 Dose: Not Given Sodium Chloride (0.9 % Sodium Chloride Flush 3 Ml Syringe) 3 ml IVFLUSH QSHIFT [facility] Last Admin: 12/04/24 07:53 Dose: 3 ml Vitamin D (Cholecalciferol (Vitamin D3) 25 Mcg Tablet) 25 mcg PO DAILY [facility] Last Admin: 12/04/24 07:54 Dose: 25 mcg Home Medications ?Medication ?Instructions ?Recorded ?Confirmed ?Last Taken ?Type pregabalin 75 mg capsule 1 cap PO DAILY 02/02/22 12/01/24 11/30/24 History sertraline 100 mg tablet 1 tab PO DAILY 02/02/22 12/01/24 11/30/24 History acetaminophen 650 mg 650 mg PO QID PRN Pain 03/24/23 12/01/24 Unknown History tablet,extended release allopurinol 300 mg tablet 300 mg PO DAILY 03/24/23 12/01/24 11/30/24 History cholecalciferol (vitamin D3) 25 25 mcg PO DAILY 04/13/23 12/01/24 11/30/24 History mcg (1,000 unit) capsule (Vitamin D3) cyanocobalamin (vitamin B-12) 1,000 mcg PO DAILY 04/13/23 12/01/24 11/30/24 History 1,000 mcg tablet (Vitamin B-12) vitamin A-vitamin C-vit E-min 1 tab PO DAILY 04/13/23 12/01/24 11/30/24 History tablet amlodipine 10 mg tablet 10 mg PO DAILY 12/01/24 12/01/24 11/30/24 History metoprolol succinate 50 mg 50 mg PO DAILY 12/01/24 12/01/24 11/30/24 History tablet,extended release 24 hr Physical Exam Vital Signs: Vital Signs: Last Vital Signs Temp 98.2 F 12/04/24 11:12 Pulse 69 12/04/24 11:12 Resp 16 12/04/24 11:12 BP 94/60 12/04/24 11:12 Pulse Ox 95 12/04/24 11:12 O2 Del Method Room Air 12/04/24 11:12 O2 Flow Rate 2 12/03/24 08:00 BMI result Body Mass Index 20.1 GENERAL APPEARANCE: in no acute distress, garbled speech. NECK: no carotid bruit, no jugular venous distention. SKIN: no suspicious lesions, warm and dry. HEART: Systolic murmur apex, regular rate and rhythm. LUNGS: clear to auscultation anteriorly. ABDOMEN: soft, nontender. EXTREMITIES: no edema. PERIPHERAL PULSES: equal. NEUROLOGIC: Right-sided power 2/5. Garbled speech. Objective Labs and Meds 12/01/24 09:00 12/03/24 05:50 Lab results: Laboratory Results - last 24 hr 12/04/24 12/04/24 06:11 11:51 B-Natriuretic Peptide 438 H Urine Color Yellow Urine Appearance Clear Urine pH 5.5 Ur Specific [place] 1.015 Urine Protein 300 (3+) H Urine Glucose (UA) Negative Urine Ketones Negative Urine Blood Small (1+) H Urine Nitrite Negative Ur Leukocyte Esterase Negative Urine RBC 0-2 Urine WBC 0-5 Ur Squamous Epith Cells 0-2 Urine Bacteria None Seen Hyaline Casts 0-2 Assessment and Plan (1) Mitral valve regurgitation: Status: Acute Plan 84 year female who is presenting with dysarthria and concern for CVA. She clearly has right-sided weakness as well as garbled speech. Clinically it appears that she had a stroke. She fell out of the wheelchair and had elevated CPKs. ECHO is showing severe mitral valve regurgitation. She also has severe mitral annular calcification. She has calcific mitral valve disease which in most cases his medically treated. Currently also she is asymptomatic. With severe mitral valve regurgitation 1 possibility is atrial fibrillation leading to CVA and we will monitor closely. As she goes home we can arrange a monitor for her. Blood pressure is currently low and I would hold medications. Once she is more stable then I think giving her vasodilators like GLENROY inhibitor or ARB will be the 1st twice. Thank you for allowing me to participate in the care of your patient. Please feel free to contact me if you have any questions. Procedures Date of Service Date of Service: 12/04/24
[2024-12-04 15:28] VITALS: BP 137/88; PULSE 69; RESP 16; TEMP 36.9; O2SAT 93
--- NOTE | 2024-12-04 17:27 | P.PNIM_ITS ---
Subjective Subjective Date of Service: 12/05/24 Interval History: generlaised weak Review of Systems able to answer questions with daughter present Generalized weak Physical Exam 2 Exam: Exam: Appearance: Alert.? Orientedx2 ,generalised weak cvs: rrr, [id number] . res: clear to auscultation ,no rhonchii or wheezing abd: no rebound or guarding ,nt, bs present. ext pulses present , no cyanosis neuro:looks similar as yesterday Vital Signs: Vital Signs: Last Vital Signs Temp 98.5 F 12/04/24 15:28 Pulse 69 12/04/24 15:28 Resp 16 12/04/24 15:28 BP 137/88 12/04/24 15:28 Pulse Ox 93 12/04/24 15:28 O2 Del Method Room Air 12/04/24 15:28 O2 Flow Rate 2 12/03/24 08:00 BMI result Body Mass Index 20.1 Objective Data Active Medications Acetaminophen (Acetaminophen 325 Mg Tablet) 650 mg PO Q6H PRN PRN Reason: Pain, Mild 1-3,fever,headache Last Admin: 12/03/24 20:37 Dose: 650 mg Documented By: PONCE Allopurinol (Allopurinol 300 Mg Tablet) 300 mg PO DAILY [facility] Last Admin: 12/04/24 07:54 Dose: 300 mg Documented By: BILLY Amlodipine Besylate (Amlodipine Besylate 5 Mg Tablet) 5 mg PO DAILY [facility]; Protocol On Hold: 12/04/24 13:15 Last Admin: 12/04/24 07:54 Dose: 5 mg Documented By: BILLY Aspirin (Aspirin Enteric Coated 81 Mg Tablet.) 81 mg PO DAILY [facility] Last Admin: 12/04/24 07:54 Dose: 81 mg Documented By: BILLY Atorvastatin Calcium (Atorvastatin Calcium 40 Mg Tablet) 40 mg PO BEDTIME [facility] Last Admin: 12/03/24 20:29 Dose: 40 mg Documented By: PONCE Calcium Carbonate (Calcium Carbonate 750 Mg Tab.Chew) 750 mg PO Q4H PRN PRN Reason: Heartburn Cyanocobalamin (Cyanocobalamin (Vitamin B-12) 1,000 Mcg Tablet) 1,000 mcg PO DAILY [facility] Last Admin: 12/04/24 07:54 Dose: 1,000 mcg Documented By: BILLY Heparin Sodium (Porcine) (Heparin Sodium,Porcine 5,000 Unit/Ml Vial) 5,000 unit SUBCUT Q12H [facility] Last Admin: 12/04/24 05:37 Dose: 5,000 unit Documented By: PONCE Thiamine HCl 200 mg/ Sodium (Chloride) 102 mls @ 204 mls/hr IV Q8H [facility] Last Infusion: 12/04/24 16:19 Dose: Infused Documented By: BILLY Magnesium Hydroxide (Milk Of Magnesia 30 Ml Oral.Susp) 30 ml PO DAILY PRN PRN Reason: Constipation Melatonin (Melatonin 3 Mg Tablet) 6 mg PO BEDTIME PRN PRN Reason: Insomnia Last Admin: 12/03/24 20:29 Dose: 6 mg Documented By: PONCE Metoprolol Succinate (Metoprolol Succinate Er 50 Mg Tab.Er.24h) 50 mg PO DAILY [facility]; Protocol Last Admin: 12/04/24 07:54 Dose: 50 mg Documented By: BILLY Morphine Sulfate (Morphine Sulfate 2 Mg/Ml Cartridge) 2 mg IVPUSH ONCE PRN; Protocol PRN Reason: Prior to MRI Last Admin: 12/01/24 14:59 Dose: 2 mg Documented By: ADAM Ondansetron HCl (Ondansetron Hcl 4 Mg/2 Ml Vial) 4 mg IVPUSH Q8H PRN PRN Reason: Nausea and Vomiting Pregabalin (Pregabalin 75 Mg Capsule) 75 mg PO DAILY [facility] Last Admin: 12/04/24 07:54 Dose: 75 mg Documented By: BILLY Sertraline HCl (Sertraline Hcl 100 Mg Tablet) 100 mg PO DAILY [facility] Last Admin: 12/04/24 08:48 Dose: Not Given Documented By: BILLY Non-Admin Reason: per pt family she takes at night Sodium Chloride (0.9 % Sodium Chloride Flush 3 Ml Syringe) 3 ml IVFLUSH QSHIFT [facility] Last Admin: 12/04/24 15:36 Dose: 3 ml Documented By: BILLY Vitamin D (Cholecalciferol (Vitamin D3) 25 Mcg Tablet) 25 mcg PO DAILY [facility] Last Admin: 12/04/24 07:54 Dose: 25 mcg Documented By: BILLY Labs 12/01/24 09:00 12/03/24 05:50 Labs: Laboratory Results - last 24 hr 12/04/24 12/04/24 06:11 11:51 B-Natriuretic Peptide 438 H Urine Color Yellow Urine Appearance Clear Urine pH 5.5 Ur Specific [place] 1.015 Urine Protein 300 (3+) H Urine Glucose (UA) Negative Urine Ketones Negative Urine Blood Small (1+) H Urine Nitrite Negative Ur Leukocyte Esterase Negative Urine RBC 0-2 Urine WBC 0-5 Ur Squamous Epith Cells 0-2 Urine Bacteria None Seen Hyaline Casts 0-2 Assessment and Plan (1) Elevated troponin: Status: Acute (2) Hypomagnesemia: Status: Acute Assessment and Plan: 84-year-old female with a PMH significant for?hx of TIA in 2019, iron deficiency anemia, CKD 3, HTN, and gout who presents to the ED with dysarthia after fall at home last evening. Pt is admitted to the hospital for treatment and further evaluation of dysarthria and fall at home concerning for possible acute CVA. 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 Continue aspirin and statin repeated ua -seems nagative -no pyuria/bacteruria PT/OT consult Neurology assessment noted. She will likely need rehab. Formal speech/swallow evaluation-ground/mechanical/honeythick. Elevated CPK CPK 1131 to 567 . In the setting of fall at home with prolonged downtime Follow CPK encourged for po hydration -free water 250 ml po q6h. Question of hypoxia Pt's O2 readings noted to be as low as 81% on 4L NC Does not appear to be an accurate reading Pt denies SOB or cough; CXR negative for consolidation but possible mild interstitial edema; lungs CTA Pt also noted to constantly fidgeting with O2 sensor; replaced sensor and pt 93% on room air improved. Hypomagnesemia Magnesium 1.5 today 2.0 Elevated troponins Pt asymptomatic and EKG without ischemic changes-though to be Likely type 2 setting of increased demand echo ef 60-65% moniter on tele cardio eval noted -currently asymptomatic, monitor on tele, hold blood pressure medications -due to borderline blood pressure. Alcohol dependence Family report pt drinks 2+ drinks daily Strongly advised to abstain from alcohol Thiamine, folic acid Currently does not seem to be withdrawing. CKD 3 Creatinine stable and baseline HTN Hold amlodipine and metoprolol for permissive hypertension Mood disorder Continue sertraline. Peripheral neuropathy hold pregabalin Hx of gout Continue allopurinol Rib pain, patient could not tolerate. No acute findings in the thorax. No definite rib fracture seen on these 2 limited projections. Full Code DVT Prophylaxis: Heparin She will likely need to go to rehab Above was discussed with patient family at bedside in detail length. Quality Stroke Does the patient have a stroke diagnosis?: No VTE Prior VTE?: No VTE Risk Level:: Medical - moderate - high VTE Device Contraindication: Treatment Not Indicated VTE Drug Contraindication: N/A - Med Ordered
[2024-12-04 19:53] VITALS: BP 141/72; PULSE 80; RESP 16; TEMP 36.7; O2SAT 93
[2024-12-04 23:33] VITALS: BP 167/85; PULSE 77; RESP 16; TEMP 36.4; O2SAT 95
[2024-12-05] MEDS: Thiamine HCL 200 MG in 0.9 % Sodium Chloride 100 ML 204 MG IV ×4 (00:53→23:17)
[2024-12-05] MEDS: 0.9 % Sodium Chloride Flush 3 ML SYRINGE IVFLUSH ×4 (01:02→19:33)
[2024-12-05 03:55] VITALS: BP 175/92; PULSE 71; RESP 16; TEMP 37.1; O2SAT 100
[2024-12-05 08:00] VITALS: BP 150/96; PULSE 80; RESP 18; TEMP 36.3; O2SAT 93
[2024-12-05] MEDS: Aspirin Enteric Coated 81 MG TABLET.DR PO (09:09)
--- NOTE | 2024-12-05 11:01 | MHC.CM.PN ---
CM met with Patient and her Daughter/Asha at bedside; [facility], [facility] than [facility]. [facility] will know later today when they will have a bed and initiate [facility] auth( is aware and wants Patient to have her first choice facility). [facility] has been notified of the change in plans.
--- NOTE | 2024-12-05 11:37 | MHC.SL.SWA ---
Addendum entered and electronically signed by ANEL Dodson 12/05/24 16:08: Patient called into room by RN at lunch, as patient was coughing and having difficulty on ground meat. Daughter was feeding patient, also reported difficulty, but may have been positioning, as she was initially feeding her with head tilted back. When patient is seated upright, she has limited control of head which flops forward. Patient can be cued to lift head, but this is effortful. Patient must be carefully positioned at all meals, would benefit from specialized seating and bolsters. Patient presents with ?increasing generalized weakness. Recommend dpwmgrade diet to PUREE (NDD1) continue on honey thick liquids, pills crushed in puree. Original Note: Speech Pathologist Impression: Risk of Aspiration Due to: Dysphasia Diet Status: Recommend CONTINUE on Ground/Mechanical (NDD2) with Honey Thick liquids, pills crushed or whole in puree. Liquid Consistency and Strategies for Safe Swallow: Liquid Intake Recommendation: Honey Thick Liquid Intake Strategies: Small Sips Solid Food Consistency: Dietary Recommendations: Grnd/Mech Altered (NDD2) Additional Modifications to Solid Foods: Assure that tray is set up well and patient can access all foods and liquids (e.g. may need containers opened, check that patient is able to cut up solid foods independently). Oral Medication Intake: Whole with Puree Please contact the pharmacy regarding appropriate crushable or liquid drug formulations that are available whenever modified delivery is recommended. Compensatory Strategies and Precautions to be Taken for Safe Swallow: Sitting Upright (90 deg) No Straw Liquids from Cup Liquids from Spoon Small Bites and Sips Alternate Liquids/Solids Supervision While Eating and Drinking for Safe Swallow: Total Assistance (1:1) Foods to Avoid: Swallowing Recommended Treatments: Compens. Strategy Educat. Recommendation for Speech: Inpatient Speech Therapy Speech Therapy through [facility] Speech Therapy through [facility] Comment: Patient seen at breakfast for toleration of diet. Daughter was present and was just about to offer breakfast to her mother when ASSISTANT BUSINESS MANAGER arrived. Patient was seated upright in the bed, but somewhat slumped to the left though supported by pillows. Daughter gave patient sips of Honey Thick coffee from cup, cuing to lift head and noting some mild difficulty managing administering liquids because of not being able to see what is coming out of cup. Use of a spoon was suggested, however daughter preferred to continue with cup. ASSISTANT BUSINESS MANAGER then gave patient meal of Cream of Wheat, with patient managing tsp amounts well, though weak oral motor movement/lip droop noted, along with mild delay initiating swallow. Patient tolerated most of the bowl of cereal along with more sips of coffee. Current diet consistency continues to present as appropriate at this time. Recommend CONTINUE on Ground/Mechanical (NDD2) with Honey Thick liquids, pills crushed or whole in puree. Patient will continue to need Speech/Dysphagia treatment at next level of care. Frequency/Duration: M-F Date Range for Service Req: Timeline to reassess: Deputy Clerk Clinican/Clinical Fellow: No Supervisory Statement: I have reviewed and agree with the student/clinical fellow's documentation: N/A Speech Language Pathologist: Sirisha Onofre M.A., CCC-ASSISTANT BUSINESS MANAGER
[2024-12-05 11:48] VITALS: BP 98/56; PULSE 96; RESP 18; TEMP 36.3
--- NOTE | 2024-12-05 15:11 | HO.PM.IMPN ---
Subjective Subjective Date of Service: 12/05/24 Interval History: generalised weak Review of Systems seems more awake today denies any new c/o Review of Systems: Yes all other systems are reviewed and are negative Physical Exam Exam: Exam: Appearance: Alert.? Orientedx2 cvs: rrr, [id number] . res: clear to auscultation ,no rhonchii or wheezing abd: no rebound or guarding ,nt, bs present. ext pulses present , no cyanosis neuro: nonfocal. Vital Signs: Vital Signs: Last Vital Signs Temp 97.3 F 12/05/24 11:48 Pulse 96 12/05/24 11:48 Resp 18 12/05/24 11:48 BP 98/56 L 12/05/24 11:48 Pulse Ox 93 12/05/24 08:00 O2 Del Method Room Air 12/05/24 11:48 O2 Flow Rate 2 12/05/24 03:55 BMI result Body Mass Index 20.1 Objective Data Active Medications Acetaminophen (Acetaminophen 325 Mg Tablet) 650 mg PO Q6H PRN PRN Reason: Pain, Mild 1-3,fever,headache Last Admin: 12/04/24 20:06 Dose: 650 mg Documented By: PONCE Allopurinol (Allopurinol 300 Mg Tablet) 300 mg PO DAILY [facility] Last Admin: 12/05/24 09:09 Dose: 300 mg Documented By: ALIZA Amlodipine Besylate (Amlodipine Besylate 5 Mg Tablet) 5 mg PO DAILY [facility]; Protocol On Hold: 12/04/24 13:15 Last Admin: 12/04/24 07:54 Dose: 5 mg Documented By: BILLY Aspirin (Aspirin Enteric Coated 81 Mg Tablet.) 81 mg PO DAILY [facility] Last Admin: 12/05/24 09:09 Dose: 81 mg Documented By: ALIZA Atorvastatin Calcium (Atorvastatin Calcium 40 Mg Tablet) 40 mg PO BEDTIME [facility] Last Admin: 12/04/24 20:05 Dose: 40 mg Documented By: PONCE Calcium Carbonate (Calcium Carbonate 750 Mg Tab.Chew) 750 mg PO Q4H PRN PRN Reason: Heartburn Cyanocobalamin (Cyanocobalamin (Vitamin B-12) 1,000 Mcg Tablet) 1,000 mcg PO DAILY [facility] Last Admin: 12/05/24 09:09 Dose: 1,000 mcg Documented By: ALIZA Heparin Sodium (Porcine) (Heparin Sodium,Porcine 5,000 Unit/Ml Vial) 5,000 unit SUBCUT Q12H [facility] Last Admin: 12/05/24 05:27 Dose: 5,000 unit Documented By: PONCE Thiamine HCl 200 mg/ Sodium (Chloride) 102 mls @ 204 mls/hr IV Q8H [facility] Last Infusion: 12/05/24 09:11 Dose: Infused Documented By: ALIZA Magnesium Hydroxide (Milk Of Magnesia 30 Ml Oral.Susp) 30 ml PO DAILY PRN PRN Reason: Constipation Melatonin (Melatonin 3 Mg Tablet) 6 mg PO BEDTIME PRN PRN Reason: Insomnia Last Admin: 12/04/24 20:06 Dose: 6 mg Documented By: PONCE Metoprolol Succinate (Metoprolol Succinate Er 50 Mg Tab.Er.24h) 50 mg PO DAILY [facility]; Protocol On Hold: 12/04/24 17:29 Last Admin: 12/04/24 07:54 Dose: 50 mg Documented By: BILLY Morphine Sulfate (Morphine Sulfate 2 Mg/Ml Cartridge) 2 mg IVPUSH ONCE PRN; Protocol PRN Reason: Prior to MRI Last Admin: 12/01/24 14:59 Dose: 2 mg Documented By: ADAM Ondansetron HCl (Ondansetron Hcl 4 Mg/2 Ml Vial) 4 mg IVPUSH Q8H PRN PRN Reason: Nausea and Vomiting Pregabalin (Pregabalin 75 Mg Capsule) 75 mg PO DAILY [facility] On Hold: 12/04/24 17:35 Last Admin: 12/04/24 07:54 Dose: 75 mg Documented By: BILLY Sertraline HCl (Sertraline Hcl 100 Mg Tablet) 100 mg PO DAILY [facility] Last Admin: 12/05/24 09:09 Dose: Not Given Documented By: ALIZA Non-Admin Reason: per patient family d/t drowsiness Sodium Chloride (0.9 % Sodium Chloride Flush 3 Ml Syringe) 3 ml IVFLUSH QSHIFT [facility] Last Admin: 12/05/24 07:54 Dose: 3 ml Documented By: MARIEL Vitamin D (Cholecalciferol (Vitamin D3) 25 Mcg Tablet) 25 mcg PO DAILY [facility] Last Admin: 12/05/24 09:09 Dose: 25 mcg Documented By: ALIZA Labs 12/01/24 09:00 12/03/24 05:50 Assessment and Plan (1) Elevated troponin: Status: Acute (2) Hypomagnesemia: Status: Acute Assessment and Plan: 84-year-old female with a PMH significant for?hx of TIA in 2019, iron deficiency anemia, CKD 3, HTN, and gout who presents to the ED with dysarthia after fall at home last evening. Pt is admitted to the hospital for treatment and further evaluation of dysarthria and fall at home concerning for possible acute CVA. 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 Continue aspirin and statin repeated ua -seems nagative -no pyuria/bacteruria PT/OT consult Neurology assessment noted. She will likely need rehab. Formal speech/swallow evaluation-ground/mechanical/honeythick. Elevated CPK CPK 1131 to 567 . In the setting of fall at home with prolonged downtime Follow CPK encourged for po hydration -free water 250 ml po q6h. Question of hypoxia Pt's O2 readings noted to be as low as 81% on 4L NC Does not appear to be an accurate reading Pt denies SOB or cough; CXR negative for consolidation but possible mild interstitial edema; lungs CTA Pt also noted to constantly fidgeting with O2 sensor; replaced sensor and pt 93% on room air improved. Hypomagnesemia Magnesium 1.5 today 2.0 Elevated troponins Pt asymptomatic and EKG without ischemic changes-though to be Likely type 2 setting of increased demand echo ef 60-65% moniter on tele cardio eval noted -currently asymptomatic, monitor on tele, hold blood pressure medications -due to borderline blood pressure. Alcohol dependence Family report pt drinks 2+ drinks daily Strongly advised to abstain from alcohol Thiamine, folic acid Currently does not seem to be withdrawing. CKD 3 Creatinine stable and baseline HTN Hold amlodipine and metoprolol for permissive hypertension Mood disorder Continue sertraline. Peripheral neuropathy hold pregabalin Hx of gout Continue allopurinol Rib pain, patient could not tolerate. No acute findings in the thorax. No definite rib fracture seen on these 2 limited projections. Diarrhae: 3 episodes loose stools added Gi Panel and cdiff Full Code DVT Prophylaxis: Heparin She will likely need to go to rehab Above was discussed with patient family at bedside in detail length. Quality Stroke Does the patient have a stroke diagnosis?: No VTE Prior VTE?: No VTE Risk Level:: Medical - moderate - high VTE Device Contraindication: Treatment Not Indicated VTE Drug Contraindication: N/A - Med Ordered
[2024-12-05 16:00] VITALS: BP 134/91; PULSE 98; RESP 18; TEMP 36.1; O2SAT 92
[2024-12-05 17:31] LABS: CDiff Gene PCR NEGATIVE (Negative)
[2024-12-05 20:00] VITALS: BP 148/85; PULSE 95; RESP 16; TEMP 37.2; O2SAT 97
[2024-12-05 23:39] VITALS: BP 140/80; PULSE 88; RESP 16; TEMP 36.5; O2SAT 95
[2024-12-06 03:39] VITALS: BP 175/84; PULSE 84; RESP 16; TEMP 37.1; O2SAT 93
[2024-12-06 07:59] VITALS: BP 145/77; PULSE 101; RESP 18; TEMP 37.1; O2SAT 95
[2024-12-06] MEDS: Aspirin Enteric Coated 81 MG TABLET.DR PO (08:10)
[2024-12-06] MEDS: Thiamine HCL 200 MG in 0.9 % Sodium Chloride 100 ML 204 MG IV (08:11)
[2024-12-06] MEDS: 0.9 % Sodium Chloride Flush 3 ML SYRINGE IVFLUSH (08:12)
--- NOTE | 2024-12-06 09:44 | MHC.CM.PN ---
Addendum entered by Sirisha Rice RN 12/06/24 11:15: AUTH RECEIVED [facility] TO TRANSPORT AT 1PM VIA BLS. DTR RAFAELA KELLER AWARE. CLARIFICATION: PT'S DTR RAFAELA SIGNED IMM, MARIN UNAVAILABLE D/T WORKING. Original Note: IMM 12/06/24 DELIVERED TO BEDSIDE, PT'S DTR MARIN SIGNED PT IS ON CONTACT PRECAUTIONS, UPDATED PT/OT/MD/MED LIST SENT TO [facility], [facility] SUBMITTED FOR AUTH, PT WILL DC ONCE AUTH GRANTED VIA [facility] D/T [facility].
[2024-12-06 09:56] LABS: E. coli EAEC Not Detected (Not Detect.); E. coli EPEC Not Detected (Not Detect.); E. coli ETEC Not Detected (Not Detect.); E. coli STEC Not Detected (Not Detect.); Shigella sp./EIEC Not Detected (Not Detect.)
--- NOTE | 2024-12-06 11:34 | PM.DS ---
DS: Providers Provider Date of Service: 12/06/24 Date of admission: 12/01/24 12:07 Date of discharge: 12/06/24 Primary care physician: Ramsey Gooden MD Consults: 12/01/24 12:22 Consult to Neurology Routine Consulting Provider: [facility] Reason for consultation: Slurred speech, fall at home: ?TIA vs CVA 12/04/24 07:45 Consult to Cardiology Routine Consulting Provider: [facility] Reason for consultation: severe MR/elevated troponins Has provider been notified: No Attending physician on discharge: Tayo Williamson Discharging clinician: Tayo Williamson DS: Diagnosis Discharge Diagnosis (1) Elevated troponin: Status: Acute (2) Hypomagnesemia: Status: Acute DS: Summary Hospital Course Hospital Course: HPI:84-year-old female with a PMH significant for?hx of TIA in 2019, iron deficiency anemia, CKD 3, HTN, and gout who presents to the ED with dysarthia after fall at home last evening. Family is at bedside who provides most history. Pt lives by herself and is chronically wheelchair bound. Normally capable of transferring herself and also has help from family who regularly check in on her. Reports slipped out of her chair last night around 21:00, though precipitating events unclear. 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 Believes she hit her left shoulder though uncertain how or on what. Not sure about headstrike. Pt stayed on floor until she called family at 08:00 this morning. Unclear why she waited this long to reach out for help. During call family noted pt appeared to be having difficulty word finding and speaking clearly, so EMS was called. Pt denies headache, acute vision changes. No hemiparesis. Denies chest pain/pressure or palpitations. No fever or chills. Denies nausea, vomiting, abdominal pain. No SOB or difficulty breathing. Denies cough or recent respiratory illness. No lower leg edema. Family notes pt has a couple of drinks daily. In the ED pt was hypertensive as high as 170/82, tachypneic up to 25, and initially noted to be desatting at 84% on RA. Labs were significant for magnesium 1.5, AST 46, alk-phos 136, CPK 1131, initial troponin 98.3 with repeat flat at 118.0. UA negative for UTI. Ethyl alcohol negative. Tested negative for flu, COVID, RSV. CTA of head negative for acute intracranial process but showing diffuse volume loss. 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 CXR showed question of mild interstitial edema. Left shoulder x-ray negative for acute process. EKG demonstrated normal sinus rhythm without evidence of significant ST elevations or depressions. Pt was treated in the ED with morphine, hydromorphone, and Mag sulfate. Pt is admitted to the hospital for treatment and further evaluation of dysarthria and fall at home concerning for possible acute CVA. Hospital course: 84-year-old female with a PMH significant for?hx of TIA in 2019, iron deficiency anemia, CKD 3, HTN, and gout who presents to the ED with dysarthia after fall at home last evening. Pt is admitted to the hospital for treatment and further evaluation of dysarthria and fall at home concerning for possible acute CVA. 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 plan: continue aspirin and statin Formal speech/swallow evaluation-pureed/honeythick. Elevated CPK CPK 1131 to 567 . encourged for po hydration -free water 250 ml po q6h. Question of hypoxia Pt's O2 readings noted to be as low as 81% on 4L NC Does not appear to be an accurate reading Pt denies SOB or cough; CXR negative for consolidation but possible mild interstitial edema; lungs clear to auscultation. sats improved. Hypomagnesemia:repleted and resolved . Elevated troponins:Pt asymptomatic and EKG without ischemic changes-though to be Likely type 2 setting of increased demand echo ef 60-65%,Severe MR . cardio eval noted -currently asymptomatic, ECHO is showing severe mitral valve regurgitation. She also has severe mitral annular calcification. She has calcific mitral valve disease which in most cases his medically treated. Currently also she is asymptomatic. With severe mitral valve regurgitation, cardiology rec: possibility is atrial fibrillation leading to CVA and we will monitor closely. hold metoprolol and amlodipine , Once she is more stable then I think giving her vasodilators like GLENROY inhibitor or ARB will be the 1st twice. Diarrhae: 3 episodes loose stools Gi Panel -negative except norovirus and cdiff-negative Patient diarrhea seems to be improved spontaneously. plan: moniter cbc , bmp,cpk outpatient. possible acute cva -continue asa /statin , for carotid stenosis follow up outpatient with vascular. Had 3 episode of diarrhea yesterday resolved spontaneously-workup negative for C diff, GI panel positive for norovirus. Diarrhea stopped spontaneously. Has MR severe on echo: Cardiology will follow outpatient. Arrange monitor. receomeneded to stop amlodipine/metoprolol due to flactuating bp,Once she is more stable then I think giving her vasodilators like GLENROY inhibitor or ARB will be the 1st to use. Follow-up with PCP, Above management discussed with the patient and her daughters in detail length they understand and in agreement with the above plan-time spent 40 minute. All questions answered. Time Attestation Total time managing care of this patient today: 40 mintues. Discharge Coordination Time (in mins): 40 min Quality: Safe Use of Opioids Does Pt have an Active Cancer Diagnosis on the Problem List?: No Quality: Stroke Does the patient have a stroke diagnosis?: No Physical Exam Exam: Exam: Appearance: Alert.? Orientedx3 cvs: rrr, [id number] . res: clear to auscultation ,no rhonchii or wheezing abd: no rebound or guarding ,nt, bs present. ext pulses present , no cyanosis neuro: nonfocal. Vital Signs: Vital Signs: Last Vital Signs Temp 98.7 F 12/06/24 07:59 Pulse 101 H 12/06/24 07:59 Resp 18 12/06/24 07:59 BP 145/77 H 12/06/24 07:59 Pulse Ox 95 12/06/24 07:59 O2 Del Method Room Air 12/06/24 07:59 O2 Flow Rate 2 12/05/24 03:55 BMI result Body Mass Index 20.1 DS: Data Data Completed and Pending Completed studies during hospitalization [Text1]: Procedures Drainage of Stomach, Pylorus with Drainage Device, Via Natural or Artificial Opening Endoscopic (02/01/22) Introduction of Vasopressor into Peripheral Vein, Percutaneous Approach (02/01/22) Release Ileum, Open Approach (02/01/22) Respiratory Ventilation, Less than 24 Consecutive Hours (02/01/22) Transfusion of Nonautologous Red Blood Cells into Peripheral Vein, Percutaneous Approach (02/01/22) Labs on day of discharge: Laboratory Results - last 24 hr 12/05/24 15:57 Stl C. cayetanensis PCR Not Detected Stool Rotavirus A PCR Not Detected Stl Adenov F 40/41 PCR Not Detected Stool Astrovirus (PCR) Not Detected Stool Campylobacter PCR Not Detected Stool Cryptosporidium PCR Not Detected Stl Sh Tox Pr E STEC PCR Not Detected Stool E coli O157 PCR Not applicable Stl Enterotoxigenic E PCR Not Detected Stool EPEC (PCR) Not Detected Stool EAEC (PCR) Not Detected Stl E. histolytica PCR Not Detected Stool Giardia Lamblia PCR Not Detected Stl P. shigelloides PCR Not Detected Stool Salmonella PCR Not Detected Stool Sapovirus (PCR) Not Detected Stl Shigella/EIEC PCR Not Detected St Y.enterocolitica PCR Not Detected Stool Vibrio (PCR) Not Detected Stl Vibrio cholerae PCR Not Detected Stl Norovirus GI/GII PCR Detected A C. difficile Tox B Gene NEGATIVE Imaging Chest x-ray: Radiologist's impression: ITS Impressions ct head: No evidence of acute territorial infarct. There is patchy low density in the periventricular and subcortical white matter. Diffuse volume loss is noted. No hydrocephalus. No hemorrhage, mass effect, mass lesion or midline shift. No abnormal extra-axial fluid. No calvarial fracture. Paranasal sinuses and mastoid air cells are clear. Impression: No acute intracranial process. Chronic changes as detailed. Ribs X-Ray 12/02/24 06:52 IMPRESSION: 1. Limited exam as detailed. The patient could not tolerate appropriate positioning for rib views. 2. No acute findings in the thorax. No definite rib fracture seen on these 2 limited projections. 3. Mild cardiac enlargement with mitral annular calcification. 4. Chronically elevated right hemidiaphragm. cxr: impression: Mild interstitial edema not excluded. Questionable irregularity of the distal right clavicle. cta: Impression: There is no intracranial large vessel occlusion detected. There is origin stenosis of the right ICA as detailed. Incidental findings as note. echo: Conclusions: - Normal left ventricular size and systolic function. There is mildly increased left ventricular wall thickness. The visually estimated ejection fraction is between 60-65%. - Normal right ventricular cavity size and systolic function. - The left atrium is severely dilated. - There is severe mitral annular calcification. There is severe mitral valve regurgitation. - Mild pulmonary hypertension is present. Findings Left Ventricle Normal left ventricular size and systolic function. There is mildly increased left ventricular wall thickness. The visually estimated ejection fraction is between 60-65%. There is no evidence of regional wall motion abnormalities. Diastolic function is indeterminate on the basis of available data. Right Ventricle Normal right ventricular cavity size and systolic function. Atria The left atrium is severely dilated. The right atrium is normal in size. Aortic Valve There is a normal trileaflet aortic valve. There is mild calcification of the aortic valve. There is no aortic valve stenosis. There is no aortic valve regurgitation. Mitral Valve There is severe mitral annular calcification. There is severe mitral valve regurgitation. There is no mitral valve stenosis. Pulmonic Valve The pulmonic valve is likely normal. There is trace pulmonic valve regurgitation. Tricuspid Valve Normal tricuspid valve structure. There is trace tricuspid valve regurgitation. The right ventricular systolic pressure is 39 mmHg. Normal right atrial pressure. Mild pulmonary hypertension is present. Great Vessels All visible segments of the aorta are normal in size. The visualized portions of the pulmonary artery and branches are normal. Venous The inferior vena cava is normal in size and collapses greater than 50% with inspiration. Pericardium/Pleural There is no evidence of pericardial effusion. Prior Study Comparison Changes noted compared to prior study dated: 10/17/2018. Severe MAC, severe MR, mild pulm HTN. Discharge Plan Discharge Anticipated Discharge Date/Time: 12/06/24 11:18 Patient Disposition: Xfer SNF Discharge Diagnosis: cva, fall ,norovirus ,MR Referrals: [facility] [place] [facility] [Outside] - 1 Day Referral Note: SHORT TERM REHAB Ramsey Gooden MD [Primary Care Provider, Medical] - 1 Week Christiano Mosley MD [Physician, Vascular Surgery] - 1 Week Discharge Medications: New atorvastatin 40 mg Tablet 40 mg PO BEDTIME Qty: 1 0RF aspirin 81 mg Tablet,Delayed Release (Dr/Ec) 81 mg PO DAILY Qty: 1 0RF omeprazole 20 mg capsule,delayed release(DR/EC) 20 mg PO DAILY Qty: 1 0RF Continued sertraline 100 mg tablet 1 tab PO DAILY pregabalin 75 mg capsule 1 cap PO DAILY allopurinol 300 mg tablet 300 mg PO DAILY acetaminophen 650 mg Tablet Extended Release 650 mg PO QID PRN (Reason: Pain) cyanocobalamin (vitamin B-12) [Vitamin B-12] 1,000 mcg tablet 1,000 mcg PO DAILY vitamin A-vitamin C-vit E-min Tablet 1 tab PO DAILY cholecalciferol (vitamin D3) [Vitamin D3] 25 mcg (1,000 unit) Capsule 25 mcg PO DAILY Discontinued metoprolol succinate 50 mg tablet extended release 24 hr 50 mg PO DAILY amlodipine 10 mg tablet 10 mg PO DAILY Discharge Orders: Discharge Order (Routine); Ordered 12/06/24 Ordered By: Tayo Williamson Diet: Advance to usual diet Activity on Discharge: As tolerated Stand Alone Forms: Patient Portal Discharge page Print Language: Upper Sorbian Care Plan Goals: possible acute cva -continue asa /statin , for carotid stenosis follow up outpatient with vascular. Had 3 episode of diarrhea yesterday resolved spontaneously-workup negative for C diff, GI panel positive for norovirus. Diarrhea stopped spontaneously. Has MR severe on echo: Cardiology will follow outpatient. Arrange monitor. receomeneded to stop amlodipine/metoprolol due to flactuating bp,Once she is more stable then I think giving her vasodilators like GLENROY inhibitor or ARB will be the 1st to use. Health Concerns: as above. Plan of Treatment: as above. Assessment: as above. Patient Instructions: Ischemic Stroke (DC)
[2024-12-06 11:51] VITALS: BP 104/67; PULSE 96; RESP 18; TEMP 36.7; O2SAT 95
--- NOTE | 2024-12-06 12:45 | MHC.SL.SWA ---
Speech Pathologist Impression: Risk of Aspiration, Oropharyngeal Dysphagia Dysphasia Diet Status: Recommend CONTINUE on PUREED (NDD1) with Honey Thick liquids, pills crushed or whole in puree. Liquid Consistency and Strategies for Safe Swallow: Liquid Intake Recommendation: Honey Thick Liquid Intake Strategies: Small Sips Solid Food Consistency: Dietary Recommendations: Pureed (NDD1) Additional Modifications to Solid Foods: Assure that tray is set up well and patient can access all foods and liquids Oral Medication Intake: Crushed with Puree Please contact the pharmacy regarding appropriate crushable or liquid drug formulations that are available whenever modified delivery is recommended. Compensatory Strategies and Precautions to be Taken for Safe Swallow: Sitting Upright (90 deg) No Straw Liquids from Cup Liquids from Spoon Small Bites and Sips Alternate Liquids/Solids Rate of Ingestion Change Oral Check Supervision While Eating and Drinking for Safe Swallow: Total Assistance (1:1) Swallowing Recommended Treatments: Compens. Strategy Educat. Recommendation for Speech: Inpatient Speech Therapy Speech Therapy through [facility] Speech Therapy through Rehab Facility Comment: Patient is admitted with concern of acute CVA. Pt presents with moderate oropharyngeal dysphagia. Frequency/Duration: M-F Date Range for Service Req: Timeline to reassess: Electric Meter Installer Helper Clinican/Clinical Fellow: No Supervisory Statement: I have reviewed and agree with the student/clinical fellow's documentation: N/A Speech Language Pathologist: Violeta Ga M.A., CCC-TANK COOPER
--- NOTE | 2024-12-06 13:15 | PC.NURSE ---
called and attempted to give RN -RN hand off to [facility] at 1300, but facility did not answer call.
[2024-12-06 16:00] VITALS: PULSE 79; RESP 18; TEMP 36.2; O2SAT 93
== END 2024-12-06 17:35 | disposition skilled nursing facility (03) | DRG 64 ==
LOC: HO.ED 10:02 → HO.EDOVER 12:20 → HO.IMC 14:47
PROVIDERS: Registered Nurse Emergency; Admitting Provider Student in an Organized Health Care Education/Training Program; Emergency Provider Emergency Medicine; PCP Internal Medicine; Visit Provider Internal Medicine
DX: I63.9 Cerebral infarction, unspecified (principal); G92.8 Other toxic encephalopathy; G81.91 Hemiplegia, unspecified affecting right dominant side; M62.82 Rhabdomyolysis; A08.11 Acute gastroenteropathy due to Norwalk agent; R47.1 Dysarthria and anarthria; E83.42 Hypomagnesemia; R29.702 NIHSS score 2; M10.9 Gout, unspecified; F10.20 Alcohol dependence, uncomplicated; G62.9 Polyneuropathy, unspecified; I65.21 Occlusion and stenosis of right carotid artery; R09.02 Hypoxemia; I34.0 Nonrheumatic mitral (valve) insufficiency; W05.0XXA Fall from non-moving wheelchair, initial encounter; F39 Unspecified mood [affective] disorder; Z99.3 Dependence on wheelchair; I12.9 Hypertensive chronic kidney disease with stage 1 through stage 4 chronic kidney disease, or unspecified chronic kidney disease; N18.30 Chronic kidney disease, stage 3 unspecified; Z20.822 Contact with and (suspected) exposure to COVID-19; Z87.891 Personal history of nicotine dependence; Z79.82 Long term (current) use of aspirin; Z79.899 Other long term (current) drug therapy
CPT/HCPCS: 36415; 70450; 70496; 70498; 71045; 71100; 71110; 73030; 80048; 80053; 80061; 80307; 81001; 81003; 82550; 82947; 83735; 83880; 84484; 85025; 85610; 87493; 87507; 87637; 92526; 92610; 93005; 93306; 97110; 97162; 97166; 97530; 97535; 99285; J1171; J1644; J1920; J2270; J3411; J3475; J7120; Q9957; Q9967

== ENCOUNTER → 2024-12-01 08:53 | Outpatient (BNV) | payer MEDICARE, SELFPAY | PROVIDERS: Admitting Provider Student in an Organized Health Care Education/Training Program; Emergency Provider Emergency Medicine; PCP Internal Medicine; Visit Provider Internal Medicine Cardiovascular Disease | DX: I63.9 Cerebral infarction, unspecified (principal) | CPT/HCPCS: 93010 ==

== ENCOUNTER → 2024-12-01 08:58 | Outpatient (BNV) | payer MEDICARE, SELFPAY | PROVIDERS: Emergency Provider Emergency Medicine; PCP Internal Medicine; Visit Provider Radiology Vascular & Interventional Radiology | DX: R47.01 Aphasia (principal); M19.012 Primary osteoarthritis, left shoulder; J98.11 Atelectasis | CPT/HCPCS: 70450; 70496; 70498; 71045; 73030 ==

== ENCOUNTER 2024-12-01 12:07 | Outpatient (BNV) | payer MEDICARE, SELFPAY | END 2024-12-02 07:00 | PROVIDERS: Admitting Provider Student in an Organized Health Care Education/Training Program; Emergency Provider Emergency Medicine; PCP Internal Medicine; Visit Provider Internal Medicine Cardiovascular Disease | DX: I34.0 Nonrheumatic mitral (valve) insufficiency (principal); I34.81 Nonrheumatic mitral (valve) annulus calcification; I51.7 Cardiomegaly; I27.20 Pulmonary hypertension, unspecified | CPT/HCPCS: 93306 ==

== ENCOUNTER 2024-12-01 12:07 | Outpatient (BNV) | payer MEDICARE, SELFPAY | END 2024-12-02 06:52 | PROVIDERS: Admitting Provider Student in an Organized Health Care Education/Training Program; Emergency Provider Emergency Medicine; PCP Internal Medicine; Visit Provider Radiology Diagnostic Radiology | DX: M51.35 Other intervertebral disc degeneration, thoracolumbar region (principal) | CPT/HCPCS: 71100 ==

== ENCOUNTER → 2024-12-01 12:07 | Outpatient (BNV) | payer MEDICARE, SELFPAY | PROVIDERS: Admitting Provider Student in an Organized Health Care Education/Training Program; Emergency Provider Emergency Medicine; PCP Internal Medicine; Visit Provider Psychiatry & Neurology Neurology | DX: I69.351 Hemiplegia and hemiparesis following cerebral infarction affecting right dominant side (principal); G92.8 Other toxic encephalopathy | CPT/HCPCS: 99222 ==

== ENCOUNTER → 2024-12-01 12:07 | Outpatient (BNV) | payer MEDICARE, SELFPAY | PROVIDERS: Admitting Provider Student in an Organized Health Care Education/Training Program; Emergency Provider Emergency Medicine; PCP Internal Medicine; Visit Provider Internal Medicine Cardiovascular Disease | DX: I34.0 Nonrheumatic mitral (valve) insufficiency (principal) | CPT/HCPCS: 99223 ==

== ENCOUNTER → 2024-12-01 12:07 | Outpatient (BNV) | payer MEDICARE, SELFPAY | PROVIDERS: Admitting Provider Student in an Organized Health Care Education/Training Program; Emergency Provider Emergency Medicine; PCP Internal Medicine; Visit Provider Student in an Organized Health Care Education/Training Program | DX: R79.89 Other specified abnormal findings of blood chemistry (principal); E83.42 Hypomagnesemia | CPT/HCPCS: 99223; 99231; 99232; 99239 ==

== ENCOUNTER 2024-12-12 09:11 | Outpatient (AMB) | payer MEDICARE, SELFPAY ==
--- OUTSIDE RECORDS SUMMARY | 2024-12-12 09:29 | XMS_ITS | Clinical Summary ---
Author Organization [facility] Address [address] [place] [address] [address] [place] [address] Phone Care Team Providers Care Hamper Maker Name Role Phone Ramsey Gooden MD Primary Care Provider [phone] Social History Tobacco Use Types Packs/Day Years [...] patient's age to complete this topic Insurance [facility] Care Teams Hamper Maker Relationship Specialty Start Date End Date Ramsey Gooden MD HARDY EXHAUST MACHINE OPERATOR [address] [place] [address] PCP - General Internal Medicine 03/28/23
--- OUTSIDE RECORDS SUMMARY | 2024-12-12 09:29 | XMS_ITS | Clinical Summary ---
Author Organization [facility] Address [address] [facility] [address] [place] [phone] Phone Care Team Providers Care Fire Protection Equipment Technician Name Role Phone Ramsey Gooden MD Primary Care Provider [phone] Encounters Date Type Department Care Team Description 12/02/2024 Orders Only [facility] [address] [place] [address] Homehealth, Interface ProviderMD from Last 3 Months Social History Tobacco Use Types Packs/Day Years [...] on file Insurance [employer] HMO REPLACEMENT MEDICARE HMO REPLACEMENT MEDICARE HMO REPLACEMENT MEDICARE HMO REPLACEMENT Member Subscriber Plan / Payer (Ef fective 2024-Present) Name:Nova eWi Relation to Subscriber:Self Name:Nova Wei Payer ID:Not on file Type:Medicare Address: [place] [id number] [place] [address] [address] [address] [place] [address] [address] [address] [place] [address] [address] [address] [address] MEDICARE HMO REPLACEMENT [employer] HMO REPLACEMENT Care Teams Fire Protection Equipment Technician Relationship Specialty Start Date End Date Ramsey Gooden MD [address] [place] [id number] PCP - General Internal Medicine 10/02/17 Additional Source Comments The information contained in this document represents components of the legal health record. It is not the complete legal health record.[facility]
[2024-12-12 09:33] VITALS: BMI 20.4
--- NOTE | 2024-12-12 09:33 | A.OFFVIS_ITS ---
Vital Signs 12/12/24 09:33 Height 5 ft 4 in Weight 119 lb BMI 20.4 Intake Visit Reasons: ED Referral for carotid stenosis s/p stroke Intake Note: Hospital follow up CTA Neck 12/01/24 w/ stroke, at [facility], daughter is present Computerized Mill Recorder Required: No Accompanied by: Self / Same As Patient Allergies cyclobenzaprine Allergy (Intermediate, Verified 12/12/24 09:36) Hallucinations Opioids - Morphine Analogues Adverse Reaction (Intermediate, Verified 12/12/24 09:36) Confusion oxycodone Adverse Reaction (Verified 12/12/24 09:36) Hallucinations HPI HPI ED Referral for carotid stenosis s/p stroke: Details: The patient is an 84-year-old female presenting for evaluation of carotid artery stenosis. The patient was originally seen in the hospital on December 01, 2024, for concerns of a stroke. During the hospital stay, a CT scan revealed significant stenosis of approximately 75% in the right carotid artery, while the left side was clear. The patient was discharged on December 06, 2024. The patient has a history of smoking, having quit approximately 20 to 30 years ago, with a history of light smoking prior to cessation. She denies any history of diabetes. The patient has been recently started on oxygen therapy due to a drop in oxygen levels, which was not required prior to this incident. An echocardiogram performed in the hospital showed a normal ejection fraction of 60 to 65%, but revealed mitral valve regurgitation and left atrial dilation. 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 Lumbar spondylosis Lumbar spinal stenosis Lumbar scoliosis STORMY (iron deficiency anemia) Hypercholesterolemia HTN (hypertension) H/O Clostridium difficile infection Hemorrhoids Avascular necrosis of bone of right hip Diverticulosis Cataract Allergic rhinitis Agoraphobia Spinal stenosis COPD (chronic obstructive pulmonary disease) Anxiety Gout Peripheral neuropathy Chronic kidney disease Dehydration Surgical History History of lumbar fusion History of repair of rectocele History of hysterectomy History of tonsillectomy History of colonoscopy H/O vaginal hysterectomy History of right hip replacement Family History Mother Stroke Social History Household Members: None [facility] Do you presently have visiting nurse or other home services: No Unable to assess alcohol history related to: Unknown Alcohol intake: unknown Patient Tobacco Use Status: Former Tobacco user Tobacco use type: Cigarette Advance Directives Date on File: 03/02/22 service: No Current occupational status: retired and disabled Review of Systems Const All systems reviewed & are unremarkable except as noted in HPI and below Reports no additional complaints ENT Reports Normal hearing present Card Denies chest pain, Denies chest pain at rest, Denies chest pain with activity and Denies pedal edema Resp Denies cough GI Denies abdominal pain Musc Denies abnormal gait, Denies muscle cramps and Denies radiating pain into limb Skin/Breast Denies skin ulcer and Denies wounds Neuro Reports Normal hearing present and Denies abnormal gait Psych Reports no additional complaints Physical Exam Vital Signs: BMI result Body Mass Index 20.4 Const General: cooperative, healthy appearing and comfortable Orientation/consciousness: oriented to person, oriented to place and oriented to time HEENT Head: Yes normal to inspection Neck Neck: Yes normal visual inspection Carotids: no bruits Chest Chest palpation & inspection: normal inspection of the chest Resp Effort & Inspection: normal respiratory effort and able to speak in complete sentences Auscultation: clear to auscultation bilaterally, no crackles, no rales, no rhonchi and no wheezes Cardio Rate: regular rate Rhythm: regular rhythm Heart sounds: S1 normal heart sound present and S2 normal heart sound present Bruits: no carotid bruits Peripheral pulses: Peripheral pulses 2+ throughout GI Inspection: Yes normal to inspection Skin Wounds: no wounds Hair: normal Neuro General: oriented to person, oriented to place and oriented to time Cranial nerves: Yes CN's II-XII intact bilaterally and Yes Normal hearing present Cognition (Neuro): normal cognition Motor exam (neuro): 5/5 motor strength present throughout Extrem Other: venous exam: No significant superficial varicosities or spider telangiectasias, minimal edema General: No clubbing, No cyanosis and No edema Psych Appearance: grossly normal Mental Status: mental status grossly normal Speech and movement: Normal speech and movement present Assessment & Plan Assessment & Plan (1) Bilateral carotid artery stenosis: Code(s): I65.23 - Occlusion and stenosis of bilateral carotid arteries Category: Medical Plan: During the discussion, I explained the significance of the 75% stenosis in the right carotid artery and the potential need for carotid endarterectomy to pre vent stroke. We discussed the risks and benefits of surgery, emphasizing the importance of a cardiology evaluation to assess cardiac risk due to existing mitral valve regurgitation and left atrial dilation. I do think we need to a discussion due to her overall frail condition and are status about the safety of undergoing open or even carotid stenting. I do want to get cardiology input before making any such decisions. I informed the patient that the routine open surgery involves full anesthesia and a recovery period of approximately two weeks, with most patients discharged the day after the procedure. We also discussed the role of statins in stabilizing the carotid plaque and the continuation of oxygen therapy as needed. She will follow up with us in approximately 6 weeks' time. Thank you for allowing us to assist in her care. If there are any questions or concerns please do not hesitate to contact us. Coding Level of Care Code Est Pt Level 4 (19837) Diagnoses Bilateral carotid artery stenosis I65.23
== END 2024-12-12 10:07 | disposition home or self-care (01) ==
LOC: HO.HVS 09:12
PROVIDERS: PCP Internal Medicine; Visit Provider Surgery Vascular Surgery
DX: I65.23 Occlusion and stenosis of bilateral carotid arteries (principal)
CPT/HCPCS: 99214

== ENCOUNTER → 2024-12-12 09:11 | Outpatient (BNVA) | payer MEDICARE, SELFPAY | PROVIDERS: PCP Internal Medicine; Visit Provider Surgery Vascular Surgery | DX: I65.23 Occlusion and stenosis of bilateral carotid arteries (principal) | CPT/HCPCS: 99212 ==

== ENCOUNTER 2025-02-10 10:56 | Outpatient (AMB) | payer MEDICARE, SELFPAY ==
--- NOTE | 2025-02-10 11:16 | MHC.OFFVIS ---
Vital Signs 02/10/25 11:17 BMI Reason not done Patient refused/unable BP 110/56 L Blood Pressure Location Lt brachial Position Sitting Pulse 65 Pulse Source Pulse Oximeter Intake Visit Reasons: [facility] [place] follow up Radiological Defense Officer Required: No Accompanied by: Family/Other Allergies cyclobenzaprine Allergy (Intermediate, Verified 02/10/25 12:03) Hallucinations Opioids - Morphine Analogues Adverse Reaction (Intermediate, Verified 02/10/25 12:03) Confusion oxycodone Adverse Reaction (Verified 02/10/25 12:03) Hallucinations Medication List - Last Reconciled 02/10/25 by Karthikeyan Sheehan MD acetaminophen ER 650 mg PO QID PRN allopurinol 300 mg PO DAILY atorvastatin 40 mg PO BEDTIME cholecalciferol (vitamin D3) (Vitamin D3) 25 mcg PO DAILY cyanocobalamin (vitamin B-12) (Vitamin B-12) 1,000 mcg PO DAILY omeprazole 20 mg PO DAILY pregabalin 1 cap PO DAILY sertraline 1 tab PO DAILY vitamin A-vitamin C-vit E-min 1 tab PO DAILY HPI Comments Details: [age] year female who is here for follow-up. She was seen in the hospital in November 2024 when she presented with dysarthria and concern for stroke. She had right-sided weakness and garbled speech. Her imaging showed moderate atherosclerotic disease at the bifurcation of the left internal carotid artery but no significant stenosis noted. Incidentally was noted to have right-sided internal carotid artery stenosis of approximately 75%. The symptoms were on the right side and this was incidentally noted and did not explain the stroke symptoms. Echocardiography showed severe mitral annular calcification with severe mitral valve regurgitation. She was asymptomatic from cardiovascular point of view otherwise and was observed and discharged home. She has improved on follow-up and is currently in her acute rehab facility. She is saying her legs are still quite weak and she came in a wheelchair. She is denying any shortness of breath, orthopnea or PND. She was on baby aspirin after the stroke but had anemia and eventually aspirin was discontinued. She also received blood transfusion 1 month ago. She is following closely with Hematology. [facility] Medical History (Reviewed 02/10/25 @ 11:20 by Antonia Shore [facility]) Acute CVA (cerebrovascular accident) History of cystocele Vitamin D deficiency Major depression in complete remission Lumbar spondylosis Lumbar spinal stenosis Lumbar scoliosis STORMY (iron deficiency anemia) Hypercholesterolemia HTN (hypertension) H/O Clostridium difficile infection Hemorrhoids Avascular necrosis of bone of right hip Diverticulosis Cataract Allergic rhinitis Agoraphobia Spinal stenosis COPD (chronic obstructive pulmonary disease) Anxiety Gout Peripheral neuropathy Chronic kidney disease Dehydration Surgical History History of lumbar fusion History of repair of rectocele History of hysterectomy History of tonsillectomy History of colonoscopy H/O vaginal hysterectomy History of right hip replacement Family History Mother Stroke Social History Household Members: None Housing: Condominium Do you presently have visiting nurse or other home services: No Alcohol intake: unknown Patient Tobacco Use Status: Former Tobacco user Tobacco use type: Cigarette Advance Directives Date on File: 03/02/22 service: No Current occupational status: retired and disabled Review of Systems Const Denies chills, Denies fatigue, Denies fever(s), Denies frequent falls, Denies weakness, Denies weight gain and Denies weight loss ENT Denies dizziness Card Denies chest pain, Denies leg edema, Denies lightheadedness, Denies palpitations, Denies dyspnea and Denies dyspnea on exertion Resp Denies cough, Denies dyspnea and Denies dyspnea on exertion GI Denies hematochezia Musc Denies abnormal gait, Denies muscle weakness, Denies numbness, Denies radiating pain into limb and Denies tingling Neuro Denies abnormal gait, Denies dizziness, Denies frequent falls, Denies numbness, Denies tingling and Denies weakness Endo Denies fatigue and Denies palpitations Physical Exam Vital Signs: Last Vital Signs Pulse 65 02/10/25 11:17 BP 110/56 L 02/10/25 11:17 GENERAL APPEARANCE: in no acute distress, pleasant. NECK: no carotid bruit, no jugular venous distention. SKIN: no suspicious lesions, warm and dry. HEART: Systolic murmur at the apex, regular rate and rhythm. LUNGS: clear to auscultation bilaterally. ABDOMEN: soft, nontender. EXTREMITIES: no edema. PERIPHERAL PULSES: equal. NEUROLOGIC: Speech garbled but improved., AAO X 3 Assessment & Plan Assessment & Plan (1) Mitral valve regurgitation: Code(s): I34.0 - Nonrheumatic mitral (valve) insufficiency Category: Medical (2) Bilateral carotid artery stenosis: Code(s): I65.23 - Occlusion and stenosis of bilateral carotid arteries Category: Medical Plan Pleasant 84 year female who presented with stroke in November to [facility]. Echocardiography at that time showed severe mitral valve regurgitation. Clinically she had no symptoms and continues to be asymptomatic. No intervention is needed for the valve currently. She had CVA and was started on aspirin but it appears she was anemic and aspirin was discontinued. She received blood transfusion also. 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 The symptoms were also in the right side and this was not the reason for presenting symptoms. She is on atorvastatin 40 mg daily. I think she needs some antiplatelet therapy either Plavix or aspirin. With aspirin more GI irritation/gastritis as possible and I would favor using Plavix 75 mg daily. The patient will be seeing Hematology today also and we will take their advice also whether antiplatelet therapy is reasonable to use given her recurrent anemia. Thank you for allowing me to participate in the care of your patient. Please feel free to contact me if you have any questions. Coding Level of Care Code Est Pt Level 5 (33841) Diagnoses Mitral valve regurgitation I34.0 Bilateral carotid artery stenosis I65.23
[2025-02-10 11:17] VITALS: BP 110/56; PULSE 65
--- OUTSIDE RECORDS SUMMARY | 2025-02-10 12:27 | XMS_ITS | Encounter Summary ---
Author Organization [facility] Address [address] [place] [address] Care Team Providers Care Manager Package Name Role Phone Coleen Cordova MD Primary Care Provider [phone] Encounter Details Date Type Department Care Team (Late st Contact Info) Description 01/14/2025 Lab Requisition [facility] [address] [facility] [place] [address] Coleen Cordova MD [address] [place], [place] [id number] Anemia, unspecified; Chronic kidney disease, stage 3 unspecified (CMS/HCC V24, CMS/HCC V28) Social History Tobacco Use Types Packs/Day Years Used Date Smoking Tobacco: Never Assessed Comments Unknown Sex and Gender Information Value Date Recorded Sex Assigned at Not on file Legal Sex Female 10:30 AM EST Gender Identity Not on file Sexual Orientation Not on file documented as of this encounter Plan of Treatment Not on file documented as of this encounter Procedures Procedure Name Priority Date/Time Associated Diagnosis Comments COMPLETE BLOOD COUNT Routine 01/15/2025 4:40 AM EDT Anemia, unspecified Chronic kidney disease, stage 3 unspecified (CMS/HCC V24, CMS/HCC V28) BASIC METABOLIC PANEL Routine 01/15/2025 4:40 AM EDT Anemia, unspecified Chronic kidney disease, stage 3 unspecified (CMS/HCC V24, CMS/HCC V28) documented in this encounter Results * (ABNORMAL) Basic metabolic panel (01/15/2025 4:40 AM EDT) Sodium 140 133 - 145 mmol/L LAB CHEMISTRY METHOD 01/15/2025 8:37 AM [facility] Potassium 3.6 3.5 - 5.5 mmol/L LAB CHEMISTRY METHOD 01/15/2025 8:37 AM [facility] Chloride 108 96 - 110 mmol/L LAB CHEMISTRY METHOD 01/15/2025 8:37 AM [facility] CO2 24 21 - 32 mmol/L LAB CHEMISTRY METHOD 01/15/2025 8:37 AM [facility] Anion Gap 8 3 - 11 LAB CHEMISTRY METHOD 01/15/2025 8:37 AM [facility] Glucose 77 70 - 100 mg/dL LAB CHEMISTRY METHOD 01/15/2025 8:37 AM [facility] BUN 47(H) 5 - 25 mg/dL LAB CHEMISTRY METHOD 01/15/2025 8:37 AM [facility] Creatinine 1.51(H) 0.50 - 1.10 mg/dL LAB CHEMISTRY METHOD 01/15/2025 8:37 AM [facility] eGFR 34(L) >=60 mL/min/1. 73m2 LAB CHEMISTRY METHOD 01/15/2025 8:37 AM [facility] Comment:Calculation based on the Chronic Kidney Disease Epidemiology Collaboration (CKD-EPI) equation refit without adjustment for race. BUN/Creatinine Ratio 31.1 LAB CHEMISTRY METHOD 01/15/2025 8:37 AM [facility] Calcium 8.6 8.5 - 10.5 mg/dL LAB CHEMISTRY METHOD 01/15/2025 8:37 AM [facility] Blood Venous blood specimen / Unknown Venipuncture / Unknown 01/15/2025 4:40 AM EDT 01/15/2025 7:55 AM EDT us Coleen Cordova MD LAB BLOOD ORDERABLES Final Resul t [facility] [address] [place] [address], * (ABNORMAL) Complete blood count (01/15/2025 4:40 AM EDT) [facility] WBC 5.2 4.8 - 10.8 K/mcL LAB HEMETOLOGY METHOD 01/15/2025 8:26 AM EDT [facility] RBC 3.00(L) 3.80 - 4.80 M/mcL LAB HEMETOLOGY METHOD 01/15/2025 8:26 AM EDT [facility] Hemoglobin 9.5(L) 11.5 - 16.0 g/dL LAB HEMETOLOGY METHOD 01/15/2025 8:26 AM [facility] Hematocrit 30.4(L) 35.0 - 47.0 % LAB HEMETOLOGY METHOD [facility]2025 [facility] MCV 100.7(H) 79.0 - 98.0 FL LAB HEMETOLOGY METHOD 01/15/2025 8:26 AM EDT [facility] MCH 31.5 27.0 - 32.0 pcg LAB HEMETOLOGY METHOD 01/15/2025 8:26 AM [facility] MCHC 31.3(L) 32.0 - 37.0 g/dL LAB HEMETOLOGY METHOD 01/15/2025 8:26 AM EDT [facility] RDW 15.9(H) 11.0 - 15.0 % LAB HEMETOLOGY METHOD 01/15/2025 8:26 AM EDT [facility] Platelets 179 130 - 400 K/mcL LAB HEMETOLOGY METHOD [facility]25 [facility] MPV 10.2 7.0 - 11.0 FL LAB HEMETOLOGY METHOD 01/15/2025 8:26 AM EDT [facility] NRBC 0.0 <1.0 % LAB HEMETOLOGY METHOD 01/15/2025 8:26 AM EDT [facility] NRBC Absolute 0.00 <0.10 K/mcL LAB HEMETOLOGY METHOD 01/15/2025 8:26 AM EDT [facility] Blood Venous blood specimen / Unknown Venipuncture / Unknown 01/15/2025 4:40 AM EDT 01/15/2025 7:55 AM EDT us Coleen Cordova MD LAB BLOOD ORDERABLES Final Resul t [facility] [address] [place] [address], documented in this encounter Visit Diagnoses Diagnosis Anemia, unspecified Chronic kidney disease, stage 3 unspecified (CMS/HCC V24, CMS/HCC V28) documented in this encounter Care Teams Manager Package Relationship Specialty Start Date End Date Coleen Cordova MD [address] [place] [address] [address] [place] [address] PCP - General Geriatric Medicine 12/08/24 documented as of this encounter
--- OUTSIDE RECORDS SUMMARY | 2025-02-10 12:27 | XMS_ITS | Encounter Summary ---
Author Organization [facility] Address [address] [place] [address] Care Team Providers Care Therapist Respiratory Name Role Phone Coleen Cordova MD Primary Care Provider [phone] Encounter Details Date Type Department Care Team (Late st Contact Info) Description 12/11/2024 Lab Requisition [facility] - Main Lab 299 [facility] [place] [address] Coleen Cordova MD [address] [place] [address] Fall on same level, unspecified, initial encounter Social History Tobacco Use Types Packs/Day Years [...] Procedure Name Priority Date/Time Associated Diagnosis Comments CBC WITH AUTO DIFFERENTIAL Routine 12/11/2024 5:39 AM EDT Fall on same level, unspecified, initial encounter CBC AND DIFFERENTIAL Routine 12/11/2024 5:39 AM EDT Fall on same level, unspecified, initial encounter BASIC METABOLIC PANEL Routine 12/11/2024 5:39 AM EDT Fall on same level, unspecified, initial encounter documented in this encounter Results * (ABNORMAL) CBC auto differential (12/11/2024 5:39 AM EDT) WBC 10.7 4.8 - 10.8 K/[facility] LAB HEMETOLOGY METHOD 12/11/2024 8:41 AM [facility] LAB RBC 3.50(L) 3.80 - 4.80 M/mcL LAB HEMETOLOGY METHOD 12/11/2024 8:41 AM [facility] LAB Hemoglobin 11.7 11.5 - 16.0 g/dL LAB HEMETOLOGY METHOD 12/11/2024 8:41 AM [facility] LAB Hematocrit 36.8 35.0 - 47.0 % LAB HEMETOLOGY METHOD 12/11/2024 8:41 AM [facility] LAB MCV 104.8(H) 79.0 - 98.0 FL LAB HEMETOLOGY METHOD 12/11/2024 8:41 AM [facility] LAB MCH 33.3(H) 27.0 - 32.0 pcg LAB HEMETOLOGY METHOD 12/11/2024 8:41 AM [facility] LAB MCHC 31.8(L) 32.0 - 37.0 g/dL LAB HEMETOLOGY METHOD 12/11/2024 8:41 AM [facility] LAB RDW 13.1 11.0 - 15.0 % LAB HEMETOLOGY METHOD 12/11/2024 8:41 AM [facility] LAB Platelets 261 130 - 400 K/mcL LAB HEMETOLOGY METHOD 12/11/2024 8:41 AM [facility] LAB MPV 10.7 7.0 - 11.0 FL LAB HEMETOLOGY METHOD 12/11/2024 8:41 AM [facility] LAB NRBC 0.0 <1.0 % LAB HEMETOLOGY METHOD 12/11/2024 8:41 AM [facility] LAB NRBC Absolute 0.00 <0.10 K/mcL LAB HEMETOLOGY METHOD 12/11/2024 8:41 AM [facility] LAB Neutrophils Relative 86.8 % LAB HEMETOLOGY METHOD 12/11/2024 8:41 AM [facility] LAB Lymphocytes Relative 4.5 % LAB HEMETOLOGY METHOD 12/11/2024 8:41 AM [facility] LAB Monocytes Relative 7.9 % LAB HEMETOLOGY METHOD 12/11/2024 8:41 AM [facility] LAB Eosinophils Relative 0.0 % LAB HEMETOLOGY METHOD 12/11/2024 8:41 AM [facility] LAB Basophils Relative 0.1 % LAB HEMETOLOGY METHOD 12/11/2024 8:41 AM [facility] LAB Immature Granulocytes Relative 0.7 % LAB HEMETOLOGY METHOD 12/11/2024 8:41 AM [facility] LAB Neutrophils Absolute 9.29(H) 1.50 - 7.00 K/mcL LAB HEMETOLOGY METHOD 12/11/2024 8:41 AM [facility] LAB Lymphocytes Absolute 0.48(L) 1.00 - 5.00 K/mcL LAB HEMETOLOGY METHOD 12/11/2024 8:41 AM [facility] LAB Monocytes Absolute 0.84 0.20 - 1.00 K/mcL LAB HEMETOLOGY METHOD 12/11/2024 8:41 AM [facility] LAB Eosinophils Absolute 0.00 0.00 - 0.50 K/mcL LAB HEMETOLOGY METHOD 12/11/2024 8:41 AM [facility] LAB Basophils Absolute 0.01 0.00 - 0.20 K/mcL LAB HEMETOLOGY METHOD 12/11/2024 8:41 AM [facility] LAB Immature Granulocytes Absolute 0.07(H) 0.00 - 0.03 K/mcL LAB HEMETOLOGY METHOD 12/11/2024 8:41 AM [facility] LAB Blood Venous blood specimen / Unknown Venipuncture / Unknown 12/11/2024 5:39 AM EDT 12/11/2024 8:10 AM EDT us Coleen Cordova MD LAB BLOOD ORDERABLES Final Resul t [facility] LAB [address] [place] [address], [place] [phone] * (ABNORMAL) Basic metabolic panel (12/11/2024 5:39 AM EDT) Sodium 138 133 - 145 mmol/L LAB CHEMISTRY METHOD 12/11/2024 9:23 AM [facility] LAB Potassium 5.0 3.5 - 5.5 mmol/L LAB CHEMISTRY METHOD 12/11/2024 9:23 AM [facility] LAB Chloride 104 96 - 110 mmol/L LAB CHEMISTRY METHOD 12/11/2024 9:23 AM [facility] LAB CO2 25 21 - 32 mmol/L LAB CHEMISTRY METHOD 12/11/2024 9:23 AM [facility] LAB Anion Gap 9 3 - 11 LAB CHEMISTRY METHOD 12/11/2024 9:23 AM [facility] LAB Glucose 110(H) 70 - 100 mg/dL LAB CHEMISTRY METHOD 12/11/2024 9:23 AM [facility] LAB BUN 60(H) 5 - 25 mg/dL LAB CHEMISTRY METHOD 12/11/2024 9:23 AM [facility] LAB Creatinine 2.25(H) 0.50 - 1.10 mg/dL LAB CHEMISTRY METHOD 12/11/2024 9:23 AM [facility] LAB eGFR 21(L) >=60 mL/min/1. 73m2 LAB CHEMISTRY METHOD 12/11/2024 9:23 AM [facility] LAB Comment:Calculation based on the Chronic Kidney Disease Epidemiology Collaboration (CKD-EPI) equation refit without adjustment for race. BUN/Creatinine Ratio 26.7 LAB CHEMISTRY METHOD 12/11/2024 9:23 AM EDT [facility] LAB Calcium 9.3 8.5 - 10.5 mg/dL LAB CHEMISTRY METHOD 12/11/2024 9:23 AM EDT [facility] LAB Blood Venous blood specimen / Unknown Venipuncture / Unknown 12/11/2024 5:39 AM EDT 12/11/2024 8:10 AM EDT us Coleen Cordova MD LAB BLOOD ORDERABLES Final Resul t [facility] LAB [address] [place] [address], documented in this encounter Visit Diagnoses Diagnosis Fall on same level, unspecified, initial encounter documented in this encounter Additional Health Concerns Infection Onset Date Last Indicated Resolved Time C. difficile Rule-Out 01/09/2025 01/08/20252024 10:59 AM EDT documented as of this encounter Care Teams Therapist Respiratory Relationship Specialty Start Date End Date Coleen Cordova MD [address] [place] [address] [address] [place] [address] PCP - General Geriatric Medicine 12/08/24 documented as of this encounter
--- OUTSIDE RECORDS SUMMARY | 2025-02-10 12:27 | XMS_ITS | Encounter Summary ---
Author Organization [facility] Address [address] [place] [address] Care Team Providers Care Roadability Machine Operator Name Role Phone Coleen Cordova MD Primary Care Provider [phone] Encounter Details Date Type Department Care Team (Late st Contact Info) Description 12/20/2024 Lab Requisition [facility] - Main Lab 299 [facility] [place] [address] Coleen Cordova MD [address] [place] [address] Essential (primary) hypertension; Chronic kidney disease, unspecified Social History Tobacco Use Types Packs/Day Years [...] Procedure Name Priority Date/Time Associated Diagnosis Comments BASIC METABOLIC PANEL Routine 12/20/2024 5:38 AM EDT Essential (primary) hypertension Chronic kidney disease, unspecified documented in this encounter Results * (ABNORMAL) Basic metabolic panel (12/20/2024 5:38 AM EDT) Sodium 142 133 - 145 mmol/L LAB CHEMISTRY METHOD 12/20/2024 9:34 AM T [facility] LAB Potassium 4.3 3.5 - 5.5 mmol/L LAB CHEMISTRY METHOD 12/20/2024 9:34 AM T [facility] LAB Chloride 111(H) 96 - 110 mmol/L LAB CHEMISTRY METHOD 12/20/2024 9:34 AM [facility] LAB CO2 24 21 - 32 mmol/L LAB CHEMISTRY METHOD 12/20/2024 9:34 AM [facility] LAB Anion Gap 7 3 - 11 LAB CHEMISTRY METHOD 12/20/2024 9:34 AM [facility] LAB Glucose 75 70 - 100 mg/dL LAB CHEMISTRY METHOD 12/20/2024 9:34 AM [facility] LAB BUN 73(H) 5 - 25 mg/dL LAB CHEMISTRY METHOD 12/20/2024 9:34 AM [facility] LAB Creatinine 1.68(H) 0.50 - 1.10 mg/dL LAB CHEMISTRY METHOD 12/20/2024 9:34 AM [facility] LAB eGFR 30(L) >=60 mL/min/1. 73m2 LAB CHEMISTRY METHOD 12/20/2024 9:34 AM [facility] LAB Comment:Calculation based on the Chronic Kidney Disease Epidemiology Collaboration (CKD-EPI) equation refit without adjustment for race. BUN/Creatinine Ratio 43.5 LAB CHEMISTRY METHOD 12/20/2024 9:34 AM [facility] LAB Calcium 9.1 8.5 - 10.5 mg/dL LAB CHEMISTRY METHOD 12/20/2024 9:34 AM [facility] LAB Blood Venous blood specimen / Unknown Venipuncture / Unknown 12/20/2024 5:38 AM EDT 12/20/2024 8:38 AM EDT us Coleen Cordova MD LAB BLOOD ORDERABLES Final Resul t [facility] LAB [address] [place] [address], documented in this encounter Visit Diagnoses Diagnosis Essential (primary) hypertension Unspecified essential hypertension Chronic kidney disease, unspecified documented in this encounter Additional Health Concerns Infection Onset Date Last Indicated Resolved Time C. difficile Rule-Out 01/09/2025 01/08/20252024 10:59 AM EDT documented as of this encounter Care Teams Roadability Machine Operator Relationship Specialty Start Date End Date Coleen Cordova MD [address] [place] [address] [address] [place] [address] PCP - General Geriatric Medicine 12/08/24 documented as of this encounter
--- OUTSIDE RECORDS SUMMARY | 2025-02-10 12:27 | XMS_ITS | Clinical Summary ---
Author Organization [facility] Address [address] [facility] [address] [place] [address] Phone Care Team Providers Care Geriatric Nursing Assistant Name Role Phone Ramsey Gooden MD Primary Care Provider [phone] Encounters Date Type Department Care Team Description 12/02/2024 Orders Only [facility] [address] [place] [address] Homehealth, Interface ProviderMD from Last 3 Months [...] Plan / Payer (Ef fective 2024-Present) Name:Nova Wei Relation to Subscriber:Self Name:Nova Wei Payer ID:Not on file Type:Medicare Address: [place] [id number] [place] [address] MEDICARE HMO [place]PLAC[place] [place] [address] MED[address] HMO REPLAC[address] [place] [place] [address] [address] [place] [place] [place] [address] MEDICARE HMO REPLACEMENT [facility] [place] MEDICARE HMO REPLACEMENT Care Teams Geriatric Nursing Assistant Relationship Specialty Start Date End Date Ramsey Gooden MD [address] [place] [id number] PCP - General Internal Medicine 10/02/17 Additional Source Comments The information contained in this document represents components of the legal health record. It is not the complete legal health record.[facility]
--- OUTSIDE RECORDS SUMMARY | 2025-02-10 12:27 | XMS_ITS | Encounter Summary ---
Author Organization [facility] Address [address] [place] [address] Care Team Providers Care Overhead Garage Door Hanger Name Role Phone Coleen Cordova MD Primary Care Provider [phone] Encounter Details Date Type Department Care Team (Late st Contact Info) Description 12/28/2024 Lab Requisition [facility] - Main Lab 299 [facility] [place] [address] Coleen Cordova MD [address] [place], [place] [id number] Chronic kidney disease, stage 3 unspecified (CMS/HCC V24, CMS/HCC V28); Anemia, unspecified Social History Tobacco Use Types Packs/Day [...] Associated Diagnosis Comments COMPLETE BLOOD COUNT Routine 12/30/2024 9:53 AM EDT Chronic kidney disease, stage 3 unspecified (CMS/HCC V24, CMS/HCC V28) Anemia, unspecified BASIC METABOLIC PANEL Routine 12/30/2024 9:53 AM EDT Chronic kidney disease, stage 3 unspecified (CMS/HCC V24, CMS/HCC V28) Anemia, unspecified documented in this encounter Results * (ABNORMAL) Basic metabolic panel (12/30/2024 9:53 AM EDT) Sodium 140 133 - 145 mmol/L LAB CHEMISTRY METHOD 12/30/2024 4:34 PM [facility] LAB Potassium 3.7 3.5 - 5.5 mmol/L LAB CHEMISTRY METHOD 12/30/2024 4:34 PM [facility] LAB Chloride 111(H) 96 - 110 mmol/L LAB CHEMISTRY METHOD 12/30/2024 4:34 PM [facility] LAB CO2 21 21 - 32 mmol/L LAB CHEMISTRY METHOD 12/30/2024 4:34 PM [facility] LAB Anion Gap 8 3 - 11 LAB CHEMISTRY METHOD 12/30/2024 4:34 PM [facility] LAB Glucose 124(H) 70 - 100 mg/dL LAB CHEMISTRY METHOD 12/30/2024 4:34 PM [facility] LAB BUN 60(H) 5 - 25 mg/dL LAB CHEMISTRY METHOD 12/30/2024 4:34 PM [facility] LAB Creatinine 1.71(H) 0.50 - 1.10 mg/dL LAB CHEMISTRY METHOD 12/30/2024 4:34 PM [facility] LAB eGFR 29(L) >=60 mL/min/1. 73m2 LAB CHEMISTRY METHOD 12/30/2024 4:34 PM [facility] LAB Comment:Calculation based on the Chronic Kidney Disease Epidemiology Collaboration (CKD-EPI) equation refit without adjustment for race. BUN/Creatinine Ratio 35.1 LAB CHEMISTRY METHOD 12/30/2024 4:34 PM [facility] LAB Calcium 9.2 8.5 - 10.5 mg/dL LAB CHEMISTRY METHOD 12/30/2024 4:34 PM [facility] LAB Blood Venous blood specimen / Unknown Venipuncture / Unknown 12/30/2024 9:53 AM EDT 12/30/2024 10:48 AM EDT us Coleen Cordova MD LAB BLOOD ORDERABLES Final Resul t [facility] LAB [address] [place] [address], * (ABNORMAL) Complete blood count (12/30/2024 9:53 AM EDT) [facility] Signature WBC 7.3 4.8 - 10.8 K/mcL LAB HEMETOLOGY METHOD 12/30/2024 1:50 PM EDT [facility] LAB RBC 2.70(L) 3.80 - 4.80 M/mcL LAB HEMETOLOGY METHOD 12/30/2024 1:50 PM EDT [facility] LAB Hemoglobin 9.0(L) 11.5 - 16.0 g/dL LAB HEMETOLOGY METHOD 12/30/2024 1:50 PM EDT [facility] LAB Hematocrit 27.5(L) 35.0 - 47.0 % LAB HEMETOLOGY METHOD 12/30/2024 1:50 PM EDT [facility] LAB MCV 103.8(H) 79.0 - 98.0 FL LAB HEMETOLOGY METHOD 12/30/2024 1:50 PM EDT [facility] LAB MCH 34.0(H) 27.0 - 32.0 pcg LAB HEMETOLOGY METHOD 12/30/2024 1:50 PM EDT [facility] LAB MCHC 32.7 32.0 - 37.0 g/dL LAB HEMETOLOGY METHOD 12/30/2024 1:50 PM EDT [facility] LAB RDW 13.1 11.0 - 15.0 % LAB HEMETOLOGY METHOD 12/30/2024 1:50 PM EDT [facility] LAB Platelets 210 130 - 400 K/mcL LAB HEMETOLOGY METHOD 12/30/2024 1:50 PM EDT [facility] LAB MPV 10.7 7.0 - 11.0 FL LAB HEMETOLOGY METHOD 12/30/2024 1:50 PM EDT [facility] LAB NRBC 0.0 <1.0 % LAB HEMETOLOGY METHOD 12/30/2024 1:50 PM EDT [facility] LAB NRBC Absolute 0.00 <0.10 K/mcL LAB HEMETOLOGY METHOD 12/30/2024 1:50 PM EDT [facility] LAB Blood Venous blood specimen / Unknown Venipuncture / Unknown 12/30/2024 9:53 AM EDT 12/30/2024 10:48 AM EDT us Coleen Cordova MD LAB BLOOD ORDERABLES Final Resul t [facility] [address] [place] [address], documented in this encounter Visit Diagnoses Diagnosis Chronic kidney disease, stage 3 unspecified (CMS/HCC V24, CMS/HCC V28) Anemia, unspecified documented in this encounter Additional Health Concerns Infection Onset Date Last Indicated Resolved Time C. difficile Rule-Out 01/09/2025 01/08/20252024 10:59 AM EDT documented as of this encounter Care Teams Overhead Garage Door Hanger Relationship Specialty Start Date End Date Coleen Cordova MD [address] [place] [address] [address] [place] [address] PCP - General Geriatric Medicine 12/08/24 documented as of this encounter
--- OUTSIDE RECORDS SUMMARY | 2025-02-10 12:27 | XMS_ITS | Encounter Summary ---
Author Organization [facility] Address [address] [place] [address] Care Team Providers Care City Clerk Name Role Phone Coleen Cordova MD Primary Care Provider [phone] Encounter Details Date Type Department Care Team (Late st Contact Info) Description 01/25/[address] [facility] - Main Lab 299 [facility] [place] [address] Coleen Cordova MD [address] [place], [place] [phone] Chronic kidney disease, stage 3 unspecified (CMS/HCC [...] Associated Diagnosis Comments COMPLETE BLOOD COUNT Routine 01/27/2025 7:38 AM EDT Chronic kidney disease, stage 3 unspecified (CMS/HCC V24, CMS/HCC V28) Anemia, unspecified BASIC METABOLIC PANEL Routine 01/27/2025 7:38 AM EDT Chronic kidney disease, stage 3 unspecified (CMS/HCC V24, CMS/HCC V28) Anemia, unspecified documented in this encounter Results * (ABNORMAL) Basic metabolic panel (01/27/2025 7:38 AM EDT) Sodium 142 133 - 145 mmol/L LAB CHEMISTRY METHOD 01/27/2025 2:36 PM T [facility] Potassium 4.3 3.5 - 5.5 mmol/L LAB CHEMISTRY METHOD 01/27/2025 2:36 PM [facility] Chloride 113(H) 96 - 110 mmol/L LAB CHEMISTRY METHOD 01/27/2025 2:36 PM [facility] CO2 20(L) 21 - 32 mmol/L LAB CHEMISTRY METHOD 01/27/2025 2:36 PM [facility] Anion Gap 9 3 - 11 LAB CHEMISTRY METHOD 01/27/2025 2:36 PM [facility] Glucose 79 70 - 100 mg/dL LAB CHEMISTRY METHOD 01/27/2025 2:36 PM [facility] BUN 43(H) 5 - 25 mg/dL LAB CHEMISTRY METHOD 01/27/2025 2:36 PM [facility] Creatinine 1.88(H) 0.50 - 1.10 mg/dL LAB CHEMISTRY METHOD 01/27/2025 2:36 PM [facility] LAB eGFR 26(L) >=60 mL/min/1. 73m2 LAB CHEMISTRY METHOD 01/27/2025 2:36 PM [facility] Comment:Calculation based on the Chronic Kidney Disease Epidemiology Collaboration (CKD-EPI) equation refit without adjustment for race. BUN/Creatinine Ratio 22.9 LAB CHEMISTRY METHOD 01/27/2025 2:36 PM [facility] Calcium 8.6 8.5 - 10.5 mg/dL LAB CHEMISTRY METHOD 01/27/2025 2:36 PM [facility] Blood Venous blood specimen / Unknown Venipuncture / Unknown 01/27/2025 7:38 AM EDT 01/27/2025 11:03 AM EDT us Coleen Cordova MD LAB BLOOD ORDERABLES Final Resul t [facility] [address] [place] [address], * (ABNORMAL) Complete blood count (01/27/2025 7:38 AM EDT) WBC 4.7(L) 4.8 - 10.8 K/mcL LAB HEMETOLOGY METHOD 01/27/2025 12:21 PM EDT [facility] RBC 2.90(L) 3.80 - 4.80 M/mcL LAB HEMETOLOGY METHOD 01/27/2025 12:21 PM EDT [facility] Hemoglobin 8.9(L) 11.5 - 16.0 g/dL LAB HEMETOLOGY [facility] Hematocrit 28.5(L) 35.0 - 47.0 % LAB HEMETOLOGY METHOD [facility] MCV 99.7(H) 79.0 - 98.0 FL LAB HEMETOLOGY METHOD 01/27/2025 12:21 PM EDT [facility] MCH 31.1 27.0 - 32.0 pcg LAB HEMETOLOGY METHOD 01/27/2025 12:21 PM [facility] MCHC 31.2(L) 32.0 - 37.0 g/dL LAB HEMETOLOGY METHOD 01/27/2025 12:21 PM EDT [facility] RDW 15.7(H) 11.0 - 15.0 % LAB HEMETOLOGY METHOD 01/27/2025 12:21 PM EDT [facility] Platelets 173 130 - 400 K/mcL LAB HEMETOLOGY METHOD [facility] MPV 10.2 7.0 - 11.0 FL LAB HEMETOLOGY METHOD 01/27/2025 12:21 PM EDT [facility] NRBC 0.0 <1.0 % LAB HEMETOLOGY METHOD 01/27/2025 12:21 PM EDT [facility] NRBC Absolute 0.00 <0.10 K/mcL LAB HEMETOLOGY METHOD 01/27/2025 12:21 PM EDT [facility] Blood Venous blood specimen / Unknown Venipuncture / Unknown 01/27/2025 7:38 AM EDT 01/27/2025 10:58 AM EDT us Coleen Cordova MD LAB BLOOD ORDERABLES Final Resul t [facility] [address] [place] [address], [place] [phone] documented in this encounter Visit Diagnoses Diagnosis Chronic kidney disease, stage 3 unspecified (CMS/HCC V24, CMS/HCC V28) Anemia, unspecified documented in this encounter Care Teams City Clerk Relationship Specialty Start Date End Date Coleen Cordova MD [address] [place] [address] [address] [place] [address] PCP - General Geriatric Medicine 12/08/24 documented as of this encounter
--- OUTSIDE RECORDS SUMMARY | 2025-02-10 12:27 | XMS_ITS | Encounter Summary ---
Author Organization [facility] Address [address] [place] [address] Care Team Providers Care Care Technician Name Role Phone Coleen Cordova MD Primary Care Provider [phone] Encounter Details Date Type Department Care Team (Late st Contact Info) Description 02/08/2025 Lab Requisition [facility] - Main Lab 299 [facility] [place] [address] Colene Cordova MD [address] [place], [place] [phone] Chronic kidney disease, stage 3 unspecified (CMS/HCC [...] on file documented as of this encounter Visit Diagnoses Diagnosis Chronic kidney disease, stage 3 unspecified (CMS/HCC V24, CMS/HCC V28) Anemia, unspecified documented in this encounter Care Teams Care Technician Relationship Specialty Start Date End Date Coleen Cordova MD [address] [place], [place] [phone] PCP - General Geriatric Medicine 12/08/24 documented as of this encounter
--- OUTSIDE RECORDS SUMMARY | 2025-02-10 12:27 | XMS_ITS | Clinical Summary ---
Author Organization [facility] Address [address] [place] [address] [address] [place] [address] Phone Care Team Providers Care Take Away Worker Name Role Phone Ramsey Gooden MD Primary Care Provider [phone] Social History Tobacco Use Types Packs/Day Years [...] patient's age to complete this topic Insurance [facility] Care Teams Take Away Worker Relationship Specialty Start Date End Date Ramsey Gooden MD EVA BOOM CAT OPERATOR [address] [place] [address] PCP - General Internal Medicine 03/28/23
--- OUTSIDE RECORDS SUMMARY | 2025-02-10 12:27 | XMS_ITS | Encounter Summary ---
Author Organization [facility] Address [address] [place] [address] Care Team Providers Care Licensed Loan Officer Name Role Phone Coleen Cordova MD Primary Care Provider [phone] Encounter Details Date Type Department Care Team (Late st Contact Info) Description 01/03/2025 Lab Requisition [facility] - Main Lab [address] [facility] [place] [address] Coleen Cordova MD [address] [place], [place] [id number] Chronic kidney disease, stage 3 unspecified (CMS/HCC [...] Associated Diagnosis Comments COMPLETE BLOOD COUNT Routine 01/06/2025 4:45 AM EDT Chronic kidney disease, stage 3 unspecified (CMS/HCC V24, CMS/HCC V28) Anemia, unspecified BASIC METABOLIC PANEL Routine 01/06/2025 4:45 AM EDT Chronic kidney disease, stage 3 unspecified (CMS/HCC V24, CMS/HCC V28) Anemia, unspecified documented in this encounter Results * (ABNORMAL) Basic metabolic panel (01/06/2025 4:45 AM EDT) Sodium 141 133 - 145 mmol/L LAB CHEMISTRY METHOD 01/06/2025 11:01 AM [facility] Potassium 4.2 3.5 - 5.5 mmol/L LAB CHEMISTRY METHOD 01/06/2025 11:01 AM [facility] Chloride 111(H) 96 - 110 mmol/L LAB CHEMISTRY METHOD 01/06/2025 11:01 AM [facility] CO2 23 21 - 32 mmol/L LAB CHEMISTRY METHOD 01/06/2025 11:01 AM [facility] Anion Gap 7 3 - 11 LAB CHEMISTRY METHOD 01/06/2025 11:01 AM [facility] Glucose 87 70 - 100 mg/dL LAB CHEMISTRY METHOD 01/06/2025 11:01 AM [facility] BUN 78(H) 5 - 25 mg/dL LAB CHEMISTRY METHOD 01/06/2025 11:01 AM [facility] Creatinine 1.76(H) 0.50 - 1.10 mg/dL LAB CHEMISTRY METHOD 01/06/2025 11:01 AM [facility] eGFR 28(L) >=60 mL/min/1. 73m2 LAB CHEMISTRY METHOD 01/06/2025 11:01 AM [facility] Comment:Calculation based on the Chronic Kidney Disease Epidemiology Collaboration (CKD-EPI) equation refit without adjustment for race. BUN/Creatinine Ratio 44.3 LAB CHEMISTRY METHOD 01/06/2025 11:01 AM [facility] Calcium 8.7 8.5 - 10.5 mg/dL LAB CHEMISTRY METHOD 01/06/2025 11:01 AM [facility] Blood Venous blood specimen / Unknown Venipuncture / Unknown 01/06/2025 4:45 AM EDT 01/06/2025 10:13 AM EDT us Coleen Cordova MD LAB BLOOD ORDERABLES Final Resul t [facility] [address] [place] [address], * (ABNORMAL) Complete blood count (01/06/2025 4:45 AM EDT) [facility] Signature WBC 3.6(L) 4.8 - 10.8 K/mcL LAB HEMETOLOGY METHOD 01/06/2025 10:36 AM EDT [facility] RBC 2.00(L) 3.80 - 4.80 M/mcL LAB HEMETOLOGY METHOD 01/06/2025 10:36 AM EDT [facility] Hemoglobin 6.6(L) 11.5 - 16.0 g/dL LAB HEMETOLOGY METHOD 01/06/2025 10:36 AM EDT [facility] Hematocrit 21.5(L) 35.0 - 47.0 % LAB HEMETOLOGY METHOD 01/06/2025 10:36 AM EDT [facility] MCV 105.9(H) 79.0 - 98.0 FL LAB HEMETOLOGY METHOD 01/06/2025 10:36 AM EDT [facility] MCH 32.5(H) 27.0 - 32.0 pcg LAB HEMETOLOGY [facility] MCHC 30.7(L) 32.0 - 37.0 g/dL LAB HEMETOLOGY METHOD 01/06/2025 10:36 AM EDT [facility] RDW 13.3 11.0 - 15.0 % LAB HEMETOLOGY METHOD 01/06/2025 10:36 AM EDT [facility] Platelets 227 130 - 400 K/mcL LAB HEMETOLOGY METHOD [facility]/06[facility]2025 10[facility] MPV 10.0 7.0 - 11.0 FL LAB HEMETOLOGY METHOD 01/06/2025 10:36 AM EDT [facility] NRBC 0.0 <1.0 % LAB HEMETOLOGY METHOD 01/06/2025 10:36 AM EDT [facility] NRBC Absolute 0.00 <0.10 K/mcL LAB HEMETOLOGY METHOD 01/06/2025 10:36 AM EDT [facility] Blood Venous blood specimen / Unknown Venipuncture / Unknown 01/06/2025 4:45 AM EDT 01/06/2025 10:13 AM EDT us Coleen Cordova MD LAB BLOOD ORDERABLES Final Resul t [facility] [address] [place] [address], documented in this encounter Visit Diagnoses Diagnosis Chronic kidney disease, stage 3 unspecified (CMS/HCC V24, CMS/HCC V28) Anemia, unspecified documented in this encounter Additional Health Concerns Infection Onset Date Last Indicated Resolved Time C. difficile Rule-Out 01/09/2025 01/08/20252024 10:59 AM EDT documented as of this encounter Care Teams Licensed Loan Officer Relationship Specialty Start Date End Date Coleen Cordova MD [address] [place] [address] [address] [place] [address] PCP - General Geriatric Medicine 12/08/24 documented as of this encounter
--- OUTSIDE RECORDS SUMMARY | 2025-02-10 12:27 | XMS_ITS | Encounter Summary ---
Author Organization [facility] Address [address] [place] [address] Care Team Providers Care Environmental Scientist Name Role Phone Coleen Cordova MD Primary Care Provider [phone] Encounter Details Date Type Department Care Team (Late st Contact Info) Description 01/31/2025 Lab Requisition [facility] - Main Lab 299 [facility] [place] [address] Coleen Cordova MD [address] [place], [place] [id number] Chronic kidney disease, stage 3 unspecified (CMS/HCC [...] Associated Diagnosis Comments COMPLETE BLOOD COUNT Routine 02/03/2025 7:38 AM EDT Chronic kidney disease, stage 3 unspecified (CMS/HCC V24, CMS/HCC V28) Anemia, unspecified BASIC METABOLIC PANEL Routine 02/03/2025 7:35 AM EDT Chronic kidney disease, stage 3 unspecified (CMS/HCC V24, CMS/HCC V28) Anemia, unspecified documented in this encounter Results * (ABNORMAL) Complete blood count (02/03/2025 7:38 AM EDT) WBC 5.3 4.8 - 10.8 [facility] LAB HEMETOLOGY METHOD 02/03/2025 11:04 AM [facility] RBC 3.30(L) 3.80 - 4.80 M/mcL LAB HEMETOLOGY METHOD 02/03/2025 11:04 AM [facility] Hemoglobin 10.4(L) 11.5 - 16.0 g/dL LAB HEMETOLOGY METHOD 02/03/2025 11:04 AM [facility] Hematocrit 33.5(L) 35.0 - 47.0 % LAB HEMETOLOGY METHOD 02/03/2025 11:04 AM [facility] MCV 100.6(H) 79.0 - 98.0 FL LAB HEMETOLOGY METHOD 02/03/2025 11:04 AM [facility] MCH 31.2 27.0 - 32.0 pcg LAB HEMETOLOGY METHOD 02/03/2025 11:04 AM [facility] MCHC 31.0(L) 32.0 - 37.0 g/dL LAB HEMETOLOGY METHOD 02/03/2025 11:04 AM [facility] RDW 15.9(H) 11.0 - 15.0 % LAB HEMETOLOGY METHOD 02/03/2025 11:04 AM [facility] Platelets 177 130 - 400 K/mcL LAB HEMETOLOGY METHOD 02/03/2025 11:04 AM [facility] MPV 10.4 7.0 - 11.0 FL LAB HEMETOLOGY METHOD 02/03/2025 11:04 AM [facility] NRBC 0.0 <1.0 % LAB HEMETOLOGY METHOD 02/03/2025 11:04 AM [facility] NRBC Absolute 0.00 <0.10 K/mcL LAB HEMETOLOGY METHOD 02/03/2025 11:04 AM [facility] Blood Venous blood specimen / Unknown Venipuncture / Unknown 02/03/2025 7:38 AM EDT 02/03/2025 10:39 AM EDT Coleen Cordova MD LAB BLOOD ORDERABLES Final Resul t [facility] [address] [place] [address], * (ABNORMAL) Basic metabolic panel (02/03/2025 7:35 AM EDT) Sodium 143 133 - 145 mmol/L LAB CHEMISTRY METHOD 02/03/2025 11:44 AM [facility] Potassium 4.5 3.5 - 5.5 mmol/L LAB CHEMISTRY METHOD 02/03/2025 11:44 AM [facility] Chloride 113(H) 96 - 110 mmol/L LAB CHEMISTRY METHOD 02/03/2025 11:44 AM [facility] CO2 22 21 - 32 mmol/L LAB CHEMISTRY METHOD 02/03/2025 11:44 AM [facility] Anion Gap 8 3 - 11 LAB CHEMISTRY METHOD 02/03/2025 11:44 AM [facility] Glucose 75 70 - 100 mg/dL LAB CHEMISTRY METHOD 02/03/2025 11:44 AM [facility] BUN 48(H) 5 - 25 mg/dL LAB CHEMISTRY METHOD 02/03/2025 11:44 AM [facility] Creatinine 1.62(H) 0.50 - 1.10 mg/dL LAB CHEMISTRY METHOD 02/03/2025 11:44 AM [facility] eGFR 31(L) >=60 mL/min/1. 73m2 LAB CHEMISTRY METHOD 02/03/2025 11:44 AM [facility] Comment:Calculation based on the Chronic Kidney Disease Epidemiology Collaboration (CKD-EPI) equation refit without adjustment for race. BUN/Creatinine Ratio 29.6 LAB CHEMISTRY METHOD 02/03/2025 11:44 AM EDT [facility] Calcium 9.4 8.5 - 10.5 mg/dL LAB CHEMISTRY METHOD 02/03/2025 11:44 AM EDT [facility] Blood Venous blood specimen / Unknown Venipuncture / Unknown 02/03/2025 7:35 AM EDT 02/03/2025 10:39 AM EDT us Coleen Cordova MD LAB BLOOD ORDERABLES Final Resul t [facility] [address] [place] [address], documented in this encounter Visit Diagnoses Diagnosis Chronic kidney disease, stage 3 unspecified (CMS/HCC V24, CMS/HCC V28) Anemia, unspecified documented in this encounter Care Teams Environmental Scientist Relationship Specialty Start Date End Date Coleen Cordova MD [address] [place] [address] [address] [place] [address] PCP - General Geriatric Medicine 12/08/24 documented as of this encounter
--- OUTSIDE RECORDS SUMMARY | 2025-02-10 12:27 | XMS_ITS | Encounter Summary ---
Author Organization [facility] Address [address] [place] [address] Care Team Providers Care Director Consumer Name Role Phone Coleen Cordova MD Primary Care Provider [phone] Encounter Details Date Type Department Care Team (Late st Contact Info) Description 01/09/2025 Lab Requisition [facility] - Main Lab 299 [facility] [place] [address] Coleen Cordova MD [address] [place] [address] Diarrhea, unspecified Social History Tobacco Use Types Packs/Day [...] Procedure Name Priority Date/Time Associated Diagnosis Comments CLOSTRIDIUM DIFFICILE TOXIN Routine 01/08/2025 5:40 PM EDT Diarrhea, unspecified documented in this encounter Results * Clostridium difficile toxin (01/08/2025 5:40 PM EDT) Clostridium difficile GDH Antigen Negative Negative 01/09/2025 10:59 AM EDT [facility] C difficile Toxins A+B, EIA Negative Negative 01/09/2025 10:59 AM EDT [facility] Comment:NEGATIVE FOR TOXIN P RODUCING CLOSTRIDIOIDES DIFFICILE, NO ADDITIONAL TESTING IS NECESSARY. Stool Rectum structure / Unknown Non-blood Collection / Unknown 01/08/2025 5:40 PM EDT 01/09/2025 9:50 AM EDT Coleen Cordova MD LAB MICROBIOLOGY - GENERAL ORDER TIMMY [facility] [address] [place] [address], documented in this encounter Visit Diagnoses Diagnosis Diarrhea, unspecified documented in this encounter Additional Health Concerns Infection Onset Date Last Indicated Resolved Time C. difficile Rule-Out 01/09/2025 01/08/20252024 10:59 AM EDT documented as of this encounter Care Teams Director Consumer Relationship Specialty Start Date End Date Coleen Cordova MD [address] [place] [address] [address] [place] [address] PCP - General Geriatric Medicine 12/08/24 documented as of this encounter
--- OUTSIDE RECORDS SUMMARY | 2025-02-10 12:27 | XMS_ITS | Encounter Summary ---
Author Organization [facility] Address [address] [place] [address] Phone Care Team Providers Care Scientific Diver Name Role Phone Eugenio Mcdonald MD Primary Care Provider Ramsey Gooden MD Primary Care Provider [phone] Encounter Details Date Type Department Care Team (Late st Contact Info) Description 09/28/2017 Ancillary Orders Virtual Department [address] [place] [address] Eugenio Mcdonald MD [address] [place] [address] [email or web address] Low back pain, unspecified back pain laterality, unspecified chronicity, with sciatica presence unspecified Social History Tobacco Use Types Packs/Day Years Used Date Smoking Tobacco: Never Assessed Comments Unknown Sex and Gender Information Value Date Recorded Sex Assigned at Not on file Legal Sex Female 10:11 PM EDT Gender Identity Not on file Sexual Orientation Not on file documented as of this encounter Plan of Treatment Not on file documented as of this encounter Results * XR LUMBOSACRAL SPINE 2-3 VIEWS (10/02/2017 11:02 AM EDT) Anatomical Region Laterality Modality L-spine Radiographic Tabatha ging 10/02/2017 11:2 5 AM EDT Impressions 10/02/2017 11:34 AM EDT Stable changes of spinal fusion spanning L3-L5 as described. Slight motion suggested at L2-3 and L1-2. POS - [id number] Narrative 10/02/2017 11:34 AM EDT HISTORY: Low back pain, evaluate for motion. COMPARISON: MRI 01/16/2015, lumbar spine radiographs 12/13/2012 FINDINGS: Lateral views of the lumbar spine are obtained in neutral, flexion, and extension positions. Changes of posterior spinal fusion from L3 through L5 with pedicle screws at L3 and L5 levels. Hardware appears intact on the lateral projection without surrounding lucency to indicate loosening or infection. Stable position of the intervertebral disc prostheses at L3-4 and L4-5 with fusion across the disc spaces. Stable grade 1 anterolisthesis of L3 on L4 and to a lesser degree of L4 on L5. No new compression deformities. Progressive moderate to severe disc space narrowing and progressive endplate spondylosis at L1-2 and to a slightly lesser degree at L2-3. With flexion, there is a 3 mm of anterolisthesis of L2 on L3, not seen in neutral and extension positions. At L1-2, 1-2 mm of retrolisthesis with extension and 1-2 mm of anterolisthesis with flexion. Procedure Note Heidi Leon MD - 10/02/2017 HISTORY: Low back pain, evaluate for motion. COMPARISON: MRI 01/16/2015, lumbar spine radiographs 12/13/2012 FINDINGS: Lateral views of the lumbar spine are obtained in neutral, flexion, andextension positions. Changes of posterior spinal fusion from L3 throughL5 with pedicle screws at L3 and L5 levels. Hardware appears intact onthe lateral projection without surrounding lucency to indicate looseningor infection. Stable position of the intervertebral disc prostheses atL3-4 and L4-5 with fusion across the disc spaces. Stable grade 1anterolisthesis of L3 on L4 and to a lesser degree of L4 on L5. No new compression deformities. Progressive moderate to severe disc spacenarrowing and progressive endplate spondylosis at L1-2 and to a slightlylesser degree at L2-3. With flexion, there is a 3 mm of anterolisthesisof L2 on L3, not seen in neutral and extension positions. At L1-2, 1-2 mmof retrolisthesis with extension and 1-2 mm of anterolisthesis withflexion. IMPRESSION: Stable changes of spinal fusion spanning L3-L5 as described. Slightmotion suggested at L2-3 and L1-2. POS - [id number] us Eugenio Mcdonald MD IMG XR SPINE Final R esult documented in this encounter Visit Diagnoses Diagnosis Low back pain, unspecified back pain laterality, unspecified chronicity, with sciatica presence unspecified Low back pain, unspecified back pain laterality, unspecified chronicity, with sciatica presence unspecified documented in this encounter Care Teams Scientific Diver Relationship Specialty Start Date End Date Eugenio Mcdonald MD [email or web address] PCP - General Neurosurgery 09/29/17 10/01/17 [place] MD [address] [place] [address] PCP - General Internal Medicine 10/02/17 documented as of this encounter Additional Source Comments The information contained in this document represents components of the legal health record. It is not the complete legal health record.[facility]
--- OUTSIDE RECORDS SUMMARY | 2025-02-10 12:27 | XMS_ITS | Encounter Summary ---
Author Organization [facility] Address [address] [place] [address] Care Team Providers Care Geology Technician Name Role Phone Coleen Cordova MD Primary Care Provider [phone] Encounter Details Date Type Department Care Team (Late st Contact Info) Description 12/20/2024 Lab Requisition [facility] - Main Lab [address] [facility] [employer] [address] Coleen Cordova MD [address] [place], [place] [phone] Chronic kidney disease, stage 3 unspecified (CMS/HCC [...] Associated Diagnosis Comments COMPLETE BLOOD COUNT Routine 12/23/2024 7:35 AM EDT Chronic kidney disease, stage 3 unspecified (CMS/HCC V24, CMS/HCC V28) Anemia, unspecified BASIC METABOLIC PANEL Routine 12/23/2024 7:35 AM EDT Chronic kidney disease, stage 3 unspecified (CMS/HCC V24, CMS/HCC V28) Anemia, unspecified documented in this encounter Results * (ABNORMAL) Basic metabolic panel (12/23/2024 7:35 AM EDT) Sodium 140 133 - 145 mmol/L LAB CHEMISTRY METHOD 12/23/2024 1:07 PM [facility] Potassium 3.9 3.5 - 5.5 mmol/L LAB CHEMISTRY METHOD 12/23/2024 1:07 PM [facility] Chloride 108 96 - 110 mmol/L LAB CHEMISTRY METHOD 12/23/2024 1:07 PM [facility] CO2 24 21 - 32 mmol/L LAB CHEMISTRY METHOD 12/23/2024 1:07 PM [facility] Anion Gap 8 3 - 11 LAB CHEMISTRY METHOD 12/23/2024 1:07 PM [facility] Glucose 73 70 - 100 mg/dL LAB CHEMISTRY METHOD 12/23/2024 1:07 PM [facility] BUN 55(H) 5 - 25 mg/dL LAB CHEMISTRY METHOD 12/23/2024 1:07 PM [facility] Creatinine 1.77(H) 0.50 - 1.10 mg/dL LAB CHEMISTRY METHOD 12/23/2024 1:07 PM [facility] eGFR 28(L) >=60 mL/min/1. 73m2 LAB CHEMISTRY METHOD 12/23/2024 1:07 PM [facility] Comment:Calculation based on the Chronic Kidney Disease Epidemiology Collaboration (CKD-EPI) equation refit without adjustment for race. BUN/Creatinine Ratio 31.1 LAB CHEMISTRY METHOD 12/23/2024 1:07 PM [facility] Calcium 9.2 8.5 - 10.5 mg/dL LAB CHEMISTRY METHOD 12/23/2024 1:07 PM [facility] Blood Venous blood specimen / Unknown Venipuncture / Unknown 12/23/2024 7:35 AM EDT 12/23/2024 11:56 AM EDT us Cloeen Cordova MD LAB BLOOD ORDERABLES Final Resul t [facility] [address] [place] [address], * (ABNORMAL) Complete blood count (12/23/2024 7:35 AM EDT) [facility] Signature WBC 12.4(H) 4.8 - 10.8 K/mcL LAB HEMETOLOGY METHOD 12/23/2024 12:51 PM EDT [facility] RBC 2.90(L) 3.80 - 4.80 M/mcL LAB HEMETOLOGY METHOD 12/23/2024 12:51 PM EDT [facility] Hemoglobin 9.8(L) 11.5 - 16.0 g/dL LAB HEMETOLOGY METHOD 12/23/2024 12:51 PM EDT [facility] Hematocrit 31.3(L) 35.0 - 47.0 % LAB HEMETOLOGY METHOD 12/23/2024 12:51 PM EDT [facility] MCV 106.5(H) 79.0 - 98.0 FL LAB HEMETOLOGY METHOD 12/23/2024 12:51 PM EDT [facility] MCH 33.3(H) 27.0 - 32.0 pcg LAB HEMETOLOGY METHOD 12/23[facility]2024 12:[facility] MCHC 31.3(L) 32.0 - 37.0 g/dL LAB HEMETOLOGY METHOD 12/23/2024 12:51 PM EDT [facility] RDW 13.2 11.0 - 15.0 % LAB HEMETOLOGY METHOD 12/23/2024 12:51 PM EDT [facility] Platelets 214 130 - 400 K/mcL LAB HEMETOLOGY METHOD 12/23/2024 12:51 PM EDT [facility] MPV 10.9 7.0 - 11.0 FL LAB HEMETOLOGY METHOD 12/23/2024 12:51 PM EDT [facility] NRBC 0.0 <1.0 % LAB HEMETOLOGY METHOD 12/23/2024 12:51 PM EDT [facility] NRBC Absolute 0.00 <0.10 K/mcL LAB HEMETOLOGY METHOD 12/23/2024 12:51 PM EDT [facility] Blood Venous blood specimen / Unknown Venipuncture / Unknown 12/23/2024 7:35 AM EDT 12/23/2024 11:56 AM EDT us Coleen Cordova MD LAB BLOOD ORDERABLES Final Resul t [facility] [address] [place] [address], documented in this encounter Visit Diagnoses Diagnosis Chronic kidney disease, stage 3 unspecified (CMS/HCC V24, CMS/HCC V28) Anemia, unspecified documented in this encounter Additional Health Concerns Infection Onset Date Last Indicated Resolved Time C. difficile Rule-Out 01/09/2025 01/08/20252024 10:59 AM EDT documented as of this encounter Care Teams Geology Technician Relationship Specialty Start Date End Date Coleen Cordova MD [address] [place] [address] [address] [place] [address] PCP - General Geriatric Medicine 12/08/24 documented as of this encounter
--- OUTSIDE RECORDS SUMMARY | 2025-02-10 12:27 | XMS_ITS | Encounter Summary ---
Author Organization [facility] Address [address] [place] [address] Care Team Providers Care Housekeeping Manager Name Role Phone Coleen Cordova MD Primary Care Provider [phone] Encounter Details Date Type Department Care Team (Late st Contact Info) Description 12/09/2024 Lab Requisition [facility] - Main Lab [address] [facility] [place] [address] Coleen Cordova MD [address] [place] [address] Anemia, unspecified; Hyperlipidemia, unspecified; Vitamin B12 deficiency anemia, unspecified; Vitamin D deficiency, unspecified; Chronic kidney disease, stage 3 unspecified [...] Procedure Name Priority Date/Time Associated Diagnosis Comments VITAMIN B12 AND FOLATE Routine 5:30 AM EDT Anemia, unspecified Hyperlipidemia, unspecified Vitamin B12 deficiency anemia, unspecified Vitamin D deficiency, unspecified Chronic kidney disease, stage 3 unspecified (CMS/HCC V24, CMS/HCC V28) LIPID PANEL WITH REFLEX TO DIRECT LDL Routine 12/09/2024 5:30 AM EDT Anemia, unspecified Hyperlipidemia, unspecified Vitamin B12 deficiency anemia, unspecified Vitamin D deficiency, unspecified Chronic kidney disease, stage 3 unspecified (CMS/HCC V24, CMS/HCC V28) VITAMIN D 25 HYDROXY Routine 12/09/2024 5:30 AM EDT Anemia, unspecified Hyperlipidemia, unspecified Vitamin B12 deficiency anemia, unspecified Vitamin D deficiency, unspecified Chronic kidney disease, stage 3 unspecified ([facility] V24, [facility] V28) COMPLETE BLOOD COUNT Routine 12/09/2024 5:30 AM EDT Anemia, unspecified Hyperlipidemia, unspecified Vitamin B12 deficiency anemia, unspecified Vitamin D deficiency, unspecified Chronic kidney disease, stage 3 unspecified ([facility] V24, [facility] V28) COMPREHENSIVE METABOLIC PANEL Routine 12/09/2024 5:30 AM EDT Anemia, unspecified Hyperlipidemia, unspecified Vitamin B12 deficiency anemia, unspecified Vitamin D deficiency, unspecified Chronic kidney disease, stage 3 unspecified ([facility] V24, [facility] V28) documented in this encounter Results * (ABNORMAL) Vitamin D 25 hydroxy (12/09/2024 5:30 AM EDT) Pathologist [facility] Vit D, 25-Hydroxy 28.4(L) 30.0 - 80.0 ng/mL LAB CHEMISTRY METHOD 12/09/2024 1:40 PM EDT [facility] Blood Venous blood specimen / Unknown Venipuncture / Unknown 12/09/2024 5:30 AM EDT 12/09/2024 10:32 AM EDT us Coleen Cordova MD LAB BLOOD ORDERABLES Final Resul t [facility] [address] [place] [address], * (ABNORMAL) Vitamin B12 and folate (12/09/2024 5:30 AM EDT) [facility] Vitamin B-12 1,772(H) 250 - 900 pcg/mL LAB CHEMISTRY METHOD 12/09/2024 12:01 PM EDT [facility] Folate 5.0 2.8 - 17.0 ng/ml LAB CHEMISTRY METHOD 12/09/2024 12:01 PM EDT [facility] Blood Venous blood specimen / Unknown Venipuncture / Unknown 12/09/2024 5:30 AM EDT 12/09/2024 10:32 AM EDT us Coleen Cordova MD LAB BLOOD ORDERABLES Final Resul t [facility] [address] [place] [address], [place] [phone] * (ABNORMAL) Lipid panel with reflex to direct LDL (12/09/2024 5:30 AM EDT) Cholesterol 220(H) 0 - 200 mg/dL LAB [facility]STR[facility] Triglycerides 87 0 - 150 mg/dL LAB CHEMISTRY METHOD 12/09/2024 12:03 PM [facility] HDL 109 >=40 mg/dL LAB CHEMISTRY METHOD 12/09/2024 12:03 PM [facility] LDL Calculated 94 0 - 100 mg/dL LAB CHEMISTRY METHOD 12/09/2024 12:03 PM [facility] VLDL Cholesterol Crispin 17.4 mg/dL LAB CHEMISTRY METHOD 12/09/2024 12:03 PM [facility] Non HDL Chol. (LDL+VLDL) 111 <145 mg/dL LAB CHEMISTRY METHOD 12/09/2024 12:03 PM [facility] Chol/HDL Ratio 2.0 0.0 - 4.4 LAB CHEMISTRY METHOD 12/09/2024 12:03 PM [facility] Blood Venous blood specimen / Unknown Venipuncture / Unknown 12/09/2024 5:30 AM EDT 12/09/2024 10:32 AM EDT us Coleen Cordova MD LAB BLOOD ORDERABLES Final Resul t [facility] [address] [place] [address], * (ABNORMAL) Comprehensive metabolic panel (12/09/2024 5:30 AM EDT) Sodium 140 133 - 145 mmol/L LAB CHEMISTRY METHOD 12/09/2024 12:01 PM [facility] Potassium 4.1 3.5 - 5.5 mmol/L LAB CHEMISTRY METHOD 12/09/2024 12:01 PM [facility] Chloride 105 96 - 110 mmol/L LAB CHEMISTRY METHOD 12/09/2024 12:01 PM [facility] CO2 24 21 - 32 mmol/L LAB CHEMISTRY METHOD 12/09/2024 12:01 PM [facility] Anion Gap 11 3 - 11 LAB CHEMISTRY METHOD 12/09/2024 12:01 PM [facility] Glucose 88 70 - 100 mg/dL LAB CHEMISTRY METHOD 12/09/2024 12:01 PM [facility] BUN 54(H) 5 - 25 mg/dL LAB CHEMISTRY METHOD 12/09/2024 12:01 PM [facility] Creatinine 1.99(H) 0.50 - 1.10 mg/dL LAB CHEMISTRY METHOD 12/09/2024 12:01 PM [facility] eGFR 25(L) >=60 mL/min/1. 73m2 LAB CHEMISTRY METHOD 12/09/2024 12:01 PM [facility] Comment:Calculation based on the Chronic Kidney Disease Epidemiology Collaboration (CKD-EPI) equation refit without adjustment for race. BUN/Creatinine Ratio 27.1 LAB CHEMISTRY METHOD 12/09/2024 12:01 PM [facility] Calcium 8.9 8.5 - 10.5 mg/dL LAB CHEMISTRY METHOD 12/09/2024 12:01 PM [facility] AST (SGOT) 17 10 - 42 unit/L LAB CHEMISTRY METHOD 12/09/2024 12:01 PM [facility] ALT (SGPT) 16 10 - 60 unit/L LAB CHEMISTRY METHOD 12/09/2024 12:01 PM [facility] Alkaline Phosphatase 107 42 - 121 unit/L LAB CHEMISTRY METHOD 12/09/2024 12:01 PM [facility] Total Protein 6.3 6.0 - 8.0 g/dL LAB CHEMISTRY METHOD 12/09/2024 12:01 PM [facility] Albumin 2.9(L) 3.2 - 5.0 g/dL LAB CHEMISTRY METHOD 12/09/2024 12:01 PM [facility] Total Bilirubin 0.4 0.0 - 1.4 mg/dL LAB CHEMISTRY METHOD 12/09/2024 12:01 PM [facility] Blood Venous blood specimen / Unknown Venipuncture / Unknown 12/09/2024 5:30 AM EDT 12/09/2024 10:32 AM EDT us Coleen Cordova MD LAB BLOOD ORDERABLES Final Resul t [facility] [address] [place] [address], * (ABNORMAL) Complete blood count (12/09/2024 5:30 AM EDT) WBC 10.2 4.8 - 10.8 K/mcL LAB HEMETOLOGY METHOD 12/09/2024 11:34 AM T [facility] RBC 3.40(L) 3.80 - 4.80 M/mcL LAB HEMETOLOGY METHOD 12/09/2024 11:34 AM T [facility] Hemoglobin 11.7 11.5 - 16.0 g/dL LAB HEMETOLOGY METHOD 12/09/2024 11:34 AM EDT [facility] Hematocrit 36.6 35.0 - 47.0 % LAB HEMETOLOGY METHOD 12/09/2024 11:34 AM [facility] MCV 107.0(H) 79.0 - 98.0 FL LAB HEMETOLOGY METHOD 12/09/2024 11:34 AM EDT [facility] MCH 34.2(H) 27.0 - 32.0 pcg LAB HEMETOLOGY METHOD 12/09/2024 11:34 AM T [facility] MCHC 32.0 32.0 - 37.0 g/dL LAB HEMETOLOGY METHOD 12/09/2024 11:34 AM [facility] RDW 13.3 11.0 - 15.0 % LAB HEMETOLOGY METHOD 12/09/2024 11:34 AM EDT [facility] Platelets 214 130 - 400 K/mcL LAB HEMETOLOGY METHOD 12/09/2024 11:34 AM [facility] MPV 10.8 7.0 - 11.0 FL LAB HEMETOLOGY METHOD 12/09/2024 11:34 AM [facility] NRBC 0.0 <1.0 % LAB HEMETOLOGY METHOD 12/09/2024 11:34 AM T [facility] NRBC Absolute 0.00 <0.10 K/mcL LAB HEMETOLOGY METHOD 12/09/2024 11:34 AM [facility] Blood Venous blood specimen / Unknown Venipuncture / Unknown 12/09/2024 5:30 AM EDT 12/09/2024 10:32 AM EDT us Coleen Cordova MD LAB BLOOD ORDERABLES Final Resul t [facility] [address] [place] [address], documented in this encounter Visit Diagnoses Diagnosis Anemia, unspecified Hyperlipidemia, unspecified Vitamin B12 deficiency anemia, unspecified Vitamin D deficiency, unspecified Chronic kidney disease, stage 3 unspecified (CMS/[facility] V24, CMS/[facility] V28) documented in this encounter Additional Health Concerns Infection Onset Date Last Indicated Resolved Time C. difficile Rule-Out 01/09/2025 01/08/20252024 10:59 AM EDT documented as of this encounter Care Teams Housekeeping Manager Relationship Specialty Start Date End Date Coleen Cordova MD [address] [place] [address] [address] [place] [address] PCP - General Geriatric Medicine 12/08/24 documented as of this encounter
--- OUTSIDE RECORDS SUMMARY | 2025-02-10 12:27 | XMS_ITS | Encounter Summary ---
Author Organization [facility] Address [address] [place] [address] Care Team Providers Care Pool Installer Name Role Phone Coleen Cordova MD Primary Care Provider [phone] Encounter Details Date Type Department Care Team (Late st Contact Info) Description 01/18/2025 Lab Requisition [facility] - Main Lab [address] [facility] [place] [address] Coleen Cordova MD [address] [place], [place] [id number] Chronic kidney disease, stage 3 unspecified (CMS/HCC [...] Associated Diagnosis Comments COMPLETE BLOOD COUNT Routine 01/20/2025 7:11 AM EDT Chronic kidney disease, stage 3 unspecified (CMS/HCC V24, CMS/HCC V28) Anemia, unspecified BASIC METABOLIC PANEL Routine 01/20/2025 7:11 AM EDT Chronic kidney disease, stage 3 unspecified (CMS/HCC V24, CMS/HCC V28) Anemia, unspecified documented in this encounter Results * (ABNORMAL) Basic metabolic panel (01/20/2025 7:11 AM EDT) Sodium 143 133 - 145 mmol/L LAB CHEMISTRY METHOD 01/20/2025 10:[address] [facility] Potassium 5.0 3.5 - 5.5 mmol/L LAB CHEMISTRY METHOD 01/20/2025 10:[address] [facility] Comment:Hemolysis present Chloride 112(H) 96 - 110 mmol/L LAB CHEMISTRY METHOD 01/20/2025 10:[address] [facility] CO2 21 21 - 32 mmol/L LAB CHEMISTRY METHOD 01/20/2025 10:[address] [facility] Anion Gap 10 3 - 11 LAB CHEMISTRY METHOD 01/20/2025 10:[address] [facility] Glucose 79 70 - 100 mg/dL LAB CHEMISTRY METHOD 01/20/2025 10:[address] [facility] BUN 43(H) 5 - 25 mg/dL LAB CHEMISTRY METHOD 01/20/2025 10:[address] [facility] Creatinine 1.44(H) 0.50 - 1.10 mg/dL LAB CHEMISTRY METHOD 01/20/2025 10:[address] [facility] eGFR 36(L) >=60 mL/min/1. 73m2 LAB CHEMISTRY METHOD 01/20/2025 10:[address] [facility] Comment:Calculation based on the Chronic Kidney Disease Epidemiology Collaboration (CKD-EPI) equation refit without adjustment for race. BUN/Creatinine Ratio 29.9 LAB CHEMISTRY METHOD 01/20/2025 10:[address] [facility] Calcium 9.0 8.5 - 10.5 mg/dL LAB CHEMISTRY METHOD 01/20/2025 10:[address] [facility] Blood Venous blood specimen / Unknown Venipuncture / Unknown 01/20/2025 7:11 AM EDT 01/20/2025 9:34 AM EDT us Coleen Cordova MD LAB BLOOD ORDERABLES Final Resul t [facility] [address] [place] [address], * (ABNORMAL) Complete blood count (01/20/2025 7:11 AM EDT) [facility] Signature WBC 5.4 4.8 - 10.8 K/mcL LAB HEMETOLOGY METHOD 01/20/2025 9:46 AM EDT [facility] RBC 2.80(L) 3.80 - 4.80 M/mcL LAB HEMETOLOGY METHOD 01/20/2025 9:46 AM EDT [facility] Hemoglobin 8.9(L) 11.5 - 16.0 g/dL LAB HEMETOLOGY METHOD 01/20[facility]25 [facility] Hematocrit 28.3(L) 35.0 - 47.0 % LAB HEMETOLOGY METHOD 01/20/2025 9:46 AM EDT [facility] MCV 100.4(H) 79.0 - 98.0 FL LAB HEMETOLOGY METHOD 01/20/2025 9:46 AM EDT [facility] MCH 31.6 27.0 - 32.0 pcg LAB HEMETOLOGY METHOD 01/20/2025 9:[address] [facility] MCHC 31.4(L) 32.0 - 37.0 g/dL LAB HEMETOLOGY METHOD 01/20/2025 9:46 AM EDT [facility] RDW 15.5(H) 11.0 - 15.0 % LAB HEMETOLOGY METHOD 01/20/2025 9:46 AM EDT [facility] Platelets 165 130 - 400 K/mcL LAB HEMETOLOGY METHOD 01/20/2025 9[facility] MPV 10.2 7.0 - 11.0 FL LAB HEMETOLOGY METHOD 01/20/2025 9:46 AM EDT [facility] NRBC 0.0 <1.0 % LAB HEMETOLOGY METHOD 01/20/2025 9:46 AM EDT [facility] NRBC Absolute 0.00 <0.10 K/mcL LAB HEMETOLOGY METHOD 01/20/2025 9:46 AM EDT [facility] Blood Venous blood specimen / Unknown Venipuncture / Unknown 01/20/2025 7:11 AM EDT 01/20/2025 9:32 AM EDT us Coleen Cordova MD LAB BLOOD ORDERABLES Final Resul t [facility] [address] [place] [address], documented in this encounter Visit Diagnoses Diagnosis Chronic kidney disease, stage 3 unspecified (CMS/HCC V24, CMS/HCC V28) Anemia, unspecified documented in this encounter Care Teams Pool Installer Relationship Specialty Start Date End Date Coleen Cordova MD [address] [place] [address] [address] [place] [address] PCP - General Geriatric Medicine 12/08/24 documented as of this encounter
--- OUTSIDE RECORDS SUMMARY | 2025-02-10 12:27 | XMS_ITS | Encounter Summary ---
Author Organization [facility] Address [address] [place] [address] Care Team Providers Care Financial Services Auditor Name Role Phone Coleen Cordova MD Primary Care Provider [phone] Encounter Details Date Type Department Care Team (Late st Contact Info) Description 12/08/2024 Lab Requisition [facility] - Main Lab [address] [facility] [employer] [place] [address] Coleen Cordova MD [address] [place], [place] [id number] Essential (primary) hypertension; Chronic kidney disease, stage 3 unspecified (CMS/HCC V24, CMS/HCC V28); Gout, unspecified Social History Tobacco Use Types Packs/Day [...] Associated Diagnosis Comments COMPLETE BLOOD COUNT Routine 12/08/2024 11:30 AM EDT Essential (primary) hypertension Chronic kidney disease, stage 3 unspecified (CMS/HCC V24, CMS/HCC V28) Gout, unspecified URIC ACID Routine 12/08/2024 11:30 AM EDT Essential (primary) hypertension Chronic kidney disease, stage 3 unspecified (CMS/HCC V24, CMS/HCC V28) Gout, unspecified BASIC METABOLIC PANEL Routine 12/08/2024 11:30 AM EDT Essential (primary) hypertension Chronic kidney disease, stage 3 unspecified (CMS/HCC V24, CMS/HCC V28) Gout, unspecified documented in this encounter Results * Uric acid (12/08/2024 11:30 AM EDT) [facility] Uric Acid 6.0 3.1 - 7.8 mg/dL LAB CHEMISTRY METHOD 12/08/2024 12:51 PM EDT [facility] Blood Venous blood specimen / Unknown Venipuncture / Unknown 12/08/2024 11:30 AM EDT 12/08/2024 12:23 PM EDT us Coleen Cordova MD LAB BLOOD ORDERABLES Final Resul t [facility] [address] [place] [address], [place] [phone] * (ABNORMAL) Basic metabolic panel (12/08/2024 11:30 AM EDT) [facility] Sodium 140 133 - 145 mmol/L LAB CHEMISTRY METHOD 12/08/2024 12:51 PM [facility] Potassium 3.9 3.5 - 5.5 mmol/L LAB CHEMISTRY METHOD 12/08/2024 12:51 PM [facility] Chloride 107 96 - 110 mmol/L LAB CHEMISTRY METHOD 12/08/2024 12:51 PM [facility] CO2 25 21 - 32 mmol/L LAB CHEMISTRY METHOD 12/08/2024 12:51 PM T [facility] Anion Gap 8 3 - 11 LAB CHEMISTRY METHOD 12/08/2024 12:51 PM [facility] Glucose 131(H) 70 - 100 mg/dL LAB CHEMISTRY METHOD 12/08/2024 12:51 PM [facility] BUN 53(H) 5 - 25 mg/dL LAB CHEMISTRY METHOD 12/08/2024 12:51 PM [facility] Creatinine 1.90(H) 0.50 - 1.10 mg/dL LAB CHEMISTRY METHOD 12/08/2024 12:51 PM EDT [facility] eGFR 26(L) >=60 mL/min/1. 73m2 LAB CHEMISTRY METHOD 12/08/2024 12:51 PM EDT [facility] Comment:Calculation based on the Chronic Kidney Disease Epidemiology Collaboration (CKD-EPI) equation refit without adjustment for race. BUN/Creatinine Ratio 27.9 LAB CHEMISTRY METHOD 12/08/2024 12:51 PM EDT [facility] Calcium 8.5 8.5 - 10.5 mg/dL LAB CHEMISTRY METHOD 12/08/2024 12:51 PM EDT [facility] Blood Venous blood specimen / Unknown Venipuncture / Unknown 12/08/2024 11:30 AM EDT 12/08/2024 12:23 PM EDT us Coleen Cordova MD LAB BLOOD ORDERABLES Final Resul t [facility] [address] [place] [address], * (ABNORMAL) Complete blood count (12/08/2024 11:30 AM EDT) WBC 9.2 4.8 - 10.8 K/mcL LAB HEMETOLOGY METHOD 12/08/2024 12:33 PM EDT [facility] RBC 3.40(L) 3.80 - 4.80 M/mcL LAB HEMETOLOGY METHOD 12/08/2024 12:33 PM EDT [facility] Hemoglobin 11.6 11.5 - 16.0 g/dL LAB HEMETOLOGY METHOD 12/08/2024 12:33 PM EDT [facility] Hematocrit 36.2 35.0 - 47.0 % LAB HEMETOLOGY METHOD 12/08/2024 12:33 PM EDT [facility] MCV 105.5(H) 79.0 - 98.0 FL LAB HEMETOLOGY METHOD 12/08/2024 12:33 PM EDT [facility] MCH 33.8(H) 27.0 - 32.0 pcg LAB HEMETOLOGY METHOD 12/08/2024 12:33 PM EDT [facility] MCHC 32.0 32.0 - 37.0 g/dL LAB HEMETOLOGY METHOD 12/08/2024 12:33 PM EDT [facility] RDW 13.3 11.0 - 15.0 % LAB HEMETOLOGY METHOD 12/08/2024 12:33 PM EDT [facility] Platelets 210 130 - 400 K/mcL LAB HEMETOLOGY METHOD 12/08/2024 12:33 PM EDT [facility] MPV 10.7 7.0 - 11.0 FL LAB HEMETOLOGY METHOD 12/08/2024 12:33 PM EDT [facility] NRBC 0.0 <1.0 % LAB HEMETOLOGY METHOD 12/08/2024 12:33 PM EDT [facility] NRBC Absolute 0.00 <0.10 K/mcL LAB HEMETOLOGY METHOD 12/08/2024 12:33 PM EDT [facility] Blood Venous blood specimen / Unknown Venipuncture / Unknown 12/08/2024 11:30 AM EDT 12/08/2024 12:23 PM EDT us Coleen Cordova MD LAB BLOOD ORDERABLES Final Resul t [facility] [address] [place] [address], documented in this encounter Visit Diagnoses Diagnosis Essential (primary) hypertension Unspecified essential hypertension Chronic kidney disease, stage 3 unspecified (CMS/HCC V24, CMS/HCC V28) Gout, unspecified documented in this encounter Additional Health Concerns Infection Onset Date Last Indicated Resolved Time C. difficile Rule-Out 01/09/2025 01/08/20252024 10:59 AM EDT documented as of this encounter Care Teams Financial Services Auditor Relationship Specialty Start Date End Date Coleen Codrova MD [address] [place] [address] [address] [place] [address] PCP - General Geriatric Medicine 12/08/24 documented as of this encounter
--- OUTSIDE RECORDS SUMMARY | 2025-02-10 12:27 | XMS_ITS | Encounter Summary ---
Author Organization [facility] Address [address] [place] [address] Care Team Providers Care Cyber Special Agent Name Role Phone Coleen Cordova MD Primary Care Provider [phone] Encounter Details Date Type Department Care Team (Late st Contact Info) Description 12/14/2024 Lab Requisition [facility] - Main Lab [address] [facility] [place] [address] Coleen Cordova MD [address] [place], [place] [id number] Chronic kidney disease, stage 3 unspecified (CMS/HCC [...] Associated Diagnosis Comments COMPLETE BLOOD COUNT Routine 12/16/2024 9:59 AM EDT Chronic kidney disease, stage 3 unspecified (CMS/HCC V24, CMS/HCC V28) Anemia, unspecified BASIC METABOLIC PANEL Routine 12/16/2024 9:59 AM EDT Chronic kidney disease, stage 3 unspecified (CMS/HCC V24, CMS/HCC V28) Anemia, unspecified documented in this encounter Results * (ABNORMAL) Basic metabolic panel (12/16/2024 9:59 AM EDT) Sodium 142 133 - 145 mmol/L LAB CHEMISTRY METHOD 12/16/2024 1:27 PM [facility] Potassium 4.6 3.5 - 5.5 mmol/L LAB CHEMISTRY METHOD 12/16/2024 1:27 PM [facility] Chloride 109 96 - 110 mmol/L LAB CHEMISTRY METHOD 12/16/2024 1:27 PM [facility] CO2 21 21 - 32 mmol/L LAB CHEMISTRY METHOD 12/16/2024 1:27 PM [facility] Anion Gap 12(H) 3 - 11 LAB CHEMISTRY METHOD 12/16/2024 1:27 PM [facility] Glucose 110(H) 70 - 100 mg/dL LAB CHEMISTRY METHOD 12/16/2024 1:27 PM [facility] BUN 84(H) 5 - 25 mg/dL LAB CHEMISTRY METHOD 12/16/2024 1:27 PM [facility] Creatinine 2.44(H) 0.50 - 1.10 mg/dL LAB CHEMISTRY METHOD 12/16/2024 1:27 PM [facility] eGFR 19(L) >=60 mL/min/1. 73m2 LAB CHEMISTRY METHOD 12/16/2024 1:27 PM [facility] Comment:Calculation based on the Chronic Kidney Disease Epidemiology Collaboration (CKD-EPI) equation refit without adjustment for race. BUN/Creatinine Ratio 34.4 LAB CHEMISTRY METHOD 12/16/2024 1:27 PM [facility] Calcium 9.3 8.5 - 10.5 mg/dL LAB CHEMISTRY METHOD 12/16/2024 1:27 PM [facility] Blood Venous blood specimen / Unknown Venipuncture / Unknown 12/16/2024 9:59 AM EDT 12/16/2024 11:20 AM EDT us Coleen Cordova MD LAB BLOOD ORDERABLES Final Resul t [facility] [address] [place] [address], * (ABNORMAL) Complete blood count (12/16/2024 9:59 AM EDT) WBC 11.8(H) 4.8 - 10.8 K/mcL LAB HEMETOLOGY METHOD 12/16/2024 12:11 PM EDT [facility] RBC 3.40(L) 3.80 - 4.80 M/mcL LAB HEMETOLOGY METHOD 12/16/2024 12:11 PM EDT [facility] Hemoglobin 11.6 11.5 - 16.0 g/dL LAB HEMETOLOGY METHOD 12/16[facility]24 [facility] Hematocrit 36.1 35.0 - 47.0 % LAB HEMETOLOGY METHOD 12/16/2024 12[facility] MCV 105.2(H) 79.0 - 98.0 FL LAB HEMETOLOGY METHOD 12/16/2024 12:[facility] MCH 33.8(H) 27.0 - 32.0 pcg LAB HEMETOLOGY METHOD 12/16/2024 12:[facility] MCHC 32.1 32.0 - 37.0 g/dL LAB HEMETOLOGY METHOD 12/16/2024 12:11 PM EDT [facility] RDW 12.7 11.0 - 15.0 % LAB HEMETOLOGY METHOD 12/16/2024 12:11 PM EDT [facility] Platelets 383 130 - 400 K/mcL LAB HEMETOLOGY METHOD 12/16/2024 12:11 PM EDT [facility] MPV 10.1 7.0 - 11.0 FL LAB HEMETOLOGY METHOD 12/16/2024 12:11 PM EDT [facility] NRBC 0.0 <1.0 % LAB HEMETOLOGY METHOD 12/16/2024 12:11 PM EDT [facility] NRBC Absolute 0.00 <0.10 K/mcL LAB HEMETOLOGY METHOD 12/16/2024 12:11 PM EDT [facility] Blood Venous blood specimen / Unknown Venipuncture / Unknown 12/16/2024 9:59 AM EDT 12/16/2024 11:20 AM EDT us Coleen Cordova MD LAB BLOOD ORDERABLES Final Resul t [facility] [address] [place] [address], documented in this encounter Visit Diagnoses Diagnosis Chronic kidney disease, stage 3 unspecified (CMS/HCC V24, CMS/HCC V28) Anemia, unspecified documented in this encounter Additional Health Concerns Infection Onset Date Last Indicated Resolved Time C. difficile Rule-Out 01/09/2025 01/08/20252024 10:59 AM EDT documented as of this encounter Care Teams Cyber Special Agent Relationship Specialty Start Date End Date Coleen Cordova MD [address] [place] [address] [address] [place] [address] PCP - General Geriatric Medicine 12/08/24 documented as of this encounter
--- OUTSIDE RECORDS SUMMARY | 2025-02-10 12:27 | XMS_ITS | Encounter Summary ---
Author Organization [facility] Address [address] [place] [address] Care Team Providers Care Locomotive Electrician Name Role Phone Coleen Cordova MD Primary Care Provider [phone] Encounter Details Date Type Department Care Team (Late st Contact Info) Description 12/13/2024 Lab Requisition [facility] - Main Lab [address] [place] [address] Coleen Cordova MD [address] [place] [address] Hypomagnesemia Social History Tobacco Use Types Packs/Day Years [...] Procedure Name Priority Date/Time Associated Diagnosis Comments MAGNESIUM Routine 12/13/2024 5:04 AM EDT Hypomagnesemia documented in this encounter Results * Magnesium (12/13/2024 5:04 AM EDT) Magnesium 1.9 1.9 - 2.6 mg/dL LAB CHEMISTRY METHOD 12/13/2024 1:14 PM EDT [facility] Blood Venous blood specimen / Unknown Venipuncture / Unknown 12/13/2024 5:04 AM EDT 12/13/2024 10:35 AM EDT Coleen Cordova MD LAB BLOOD ORDERABLES Final [facility]ul t [facility] [address] [place] [address], documented in this encounter Visit Diagnoses Diagnosis Hypomagnesemia Disorders of magnesium metabolism documented in this encounter Additional Health Concerns Infection Onset Date Last Indicated Resolved Time C. difficile Rule-Out 01/09/2025 01/08/20252024 10:59 AM EDT documented as of this encounter Care Teams Locomotive Electrician Relationship Specialty Start Date End Date Coleen Cordova MD [address] [place] [address] [address] [place] [address] PCP - General Geriatric Medicine 12/08/24 documented as of this encounter
--- OUTSIDE RECORDS SUMMARY | 2025-02-10 12:27 | XMS_ITS | Clinical Summary ---
Author Organization [address] Address [address] [place] [phone] Phone Care Team Providers Care History Professor Name Role Phone Coleen Cordova MD Primary Care Provider [phone] Encounters Date Type Department Care Team Description 02/08/[address] [facility] [address] [place] [phone] Coleen Cordova MD Chronic kidney disease, stage 3 unspecified (CMS/HCC V24, CMS/HCC V28); Anemia, unspecified 01/31/[address] [facility] [address] [place] [phone] Coleen Cordova MD Chronic kidney disease, stage 3 unspecified (CMS/HCC V24, CMS/HCC V28); Anemia, unspecified 01/25/[address] [facility] [address] [place] [phone] Coleen Cordova MD Chronic kidney disease, stage 3 unspecified (CMS/HCC V24, CMS/HCC V28); Anemia, unspecified 01/18/[address] [facility] [address] [place] [phone] Coleen Cordova MD Chronic kidney disease, stage 3 unspecified (CMS/HCC V24, CMS/HCC V28); Anemia, unspecified 01/14/[address] [facility] [address] [place] [phone] Coleen Cordova MD Anemia, unspecified; Chronic kidney disease, stage 3 unspecified (CMS/HCC V24, CMS/HCC V28) 01/09/[address] [facility] [address] [place] [phone] Coleen Cordova MD Diarrhea, unspecified 01/03/[address] [facility] [address] [place] [phone] Coleen Cordova MD Chronic kidney disease, stage 3 unspecified (CMS/HCC V24, CMS/HCC V28); Anemia, unspecified 12/28/[address] [facility] [address] [place] [phone] Coleen Cordova MD Chronic kidney disease, stage 3 unspecified (CMS/HCC V24, CMS/HCC V28); Anemia, unspecified 12/20/[address] [facility] [address] [place] [phone] Coleen Cordova MD Chronic kidney disease, stage 3 unspecified (CMS/HCC V24, CMS/HCC V28); Anemia, unspecified 12/20/[address] [facility] [address] [place] [phone] Coleen Cordova MD Essential (primary) hypertension; Chronic kidney disease, unspecified 12/14/[address] [facility] [address] [place] [phone] Coleen Cordova MD Chronic kidney disease, stage 3 unspecified (CMS/HCC V24, CMS/HCC V28); Anemia, unspecified 12/13/[address] [facility] [address] [place] [phone] Coleen Cordova MD Hypomagnesemia 12/11/[address] [facility] [address] [place] [phone] Coleen Cordova MD Fall on same level, unspecified, initial encounter 12/09/[address] [facility] [address] [place] [phone] Coleen Cordova MD Anemia, unspecified; Hyperlipidemia, unspecified; Vitamin B12 deficiency anemia, unspecified; Vitamin D deficiency, unspecified; Chronic kidney disease, stage 3 unspecified ([facility] V24, [facility] V28) 12/08/[address] [facility] [address] [facility] [place] [phone] Coleen Cordova MD Essential (primary) hypertension; Chronic kidney disease, stage 3 unspecified ([facility] V24, [facility] V28); Gout, unspecified from Last 3 Months Social History Tobacco Use Types Packs/Day Years Used Date Smoking Tobacco: Never Assessed Comments Unknown Sex and Gender Information Value Date Recorded Sex Assigned at Not on file Legal Sex Female 10:30 AM EST Gender Identity Not on file Sexual Orientation Not on file Plan of Treatment Health Maintenance Due Date Last Done Comments Zoster Vaccines (1 of 2) 09/23/1991 Pneumococcal Vaccine: 50+ Years (2 of 2 - PCV) 07/02/2010 07/02/2009 RSV Immunization Adult Patients (1 - 1-dose 75+ series) 2016 Falls Risk Assessment 04/12/2022 Medicare Annual Wellness Visit 04/12/2022 Osteoporosis Screening (Bone Density Screening) 04/12/2022 Social Influencers of Health Screening 04/12/2022 Depression Screening 05/15/2024 COVID-19 Vaccine ( season) 2025 08/19/2020, 07/29/2020 Influenza Vaccine (#1) 2025 Hypertension/CHF/CAD Annual BMP Blood Test 02/03/2026 02/03/2025, 01/27/2025, 01/20/2025, Additional history exists DTaP,Tdap,and Td Vaccines (4 - Td or Tdap) 02/27/2027 02/27/2017, 07/02/2009, 07/05/1998 Cholesterol Screening (Lipid Panel) 12/09/2029 12/09/2024 HIB Vaccines Aged Out No longer eligi ble based on patient's age to complete this topic HPV Vaccines Aged Out No longer eligi ble based on patient's age to complete this topic Hepatitis A Vaccines Aged Out No long er eligible based on patient's age to complete this topic Hepatitis B Vaccines Aged Out No long er eligible based on patient's age to complete this topic IPV Vaccines Aged Out No longer eligi ble based on patient's age to complete this topic MMR Vaccines Aged Out No longer eligi ble based on patient's age to complete this topic Meningococcal ACWY Vaccine Aged Out N o longer eligible based on patient's age to complete this topic Meningococcal B Vaccine Aged Out No l onger eligible based on patient's age to complete this topic RSV Immunization Patients Under 20 months Aged Out No longer eligible based on patient's age to complete this topic Varicella Vaccines Aged Out No longer eligible based on patient's age to complete this topic Procedures Procedure Name Priority Date/Time Associated Diagnosis [...] unspecified (CMS/HCC V24, CMS/HCC V28) Anemia, unspecified COMPLETE BLOOD COUNT Routine 01/27/2025 7:38 AM EDT Chronic kidney disease, stage 3 unspecified (CMS/HCC V24, CMS/HCC V28) Anemia, unspecified BASIC METABOLIC PANEL Routine 01/20/2025 7:11 AM EDT Chronic kidney disease, stage 3 unspecified (CMS/HCC V24, CMS/HCC V28) Anemia, unspecified COMPLETE BLOOD COUNT Routine 01/20/2025 7:11 AM EDT Chronic kidney disease, stage 3 unspecified (CMS/HCC V24, CMS/HCC V28) Anemia, unspecified BASIC METABOLIC PANEL Routine 01/15/2025 4:40 AM EDT Anemia, unspecified Chronic kidney disease, stage 3 unspecified (CMS/HCC V24, CMS/HCC V28) COMPLETE BLOOD COUNT Routine 01/15/2025 4:40 AM EDT Anemia, unspecified Chronic kidney disease, stage 3 unspecified (CMS/HCC V24, CMS/HCC V28) CLOSTRIDIUM DIFFICILE TOXIN Routine 01/08/2025 5:40 PM EDT Diarrhea, unspecified BASIC METABOLIC PANEL Routine 01/06/2025 4:45 AM EDT Chronic kidney disease, stage 3 unspecified (CMS/HCC V24, CMS/HCC V28) Anemia, unspecified COMPLETE BLOOD COUNT Routine 01/06/2025 4:45 AM EDT Chronic kidney disease, stage 3 unspecified (CMS/HCC V24, CMS/HCC V28) Anemia, unspecified BASIC METABOLIC PANEL Routine 12/30/2024 9:53 AM EDT Chronic kidney disease, stage 3 unspecified (CMS/HCC V24, CMS/HCC V28) Anemia, unspecified COMPLETE BLOOD COUNT Routine 12/30/2024 9:53 AM EDT Chronic kidney disease, stage 3 unspecified (CMS/HCC V24, CMS/HCC V28) Anemia, unspecified BASIC METABOLIC PANEL Routine 12/23/2024 7:35 AM EDT Chronic kidney disease, stage 3 unspecified (CMS/HCC V24, CMS/HCC V28) Anemia, unspecified COMPLETE BLOOD COUNT Routine 12/23/2024 7:35 AM EDT Chronic kidney disease, stage 3 unspecified (CMS/HCC V24, CMS/HCC V28) Anemia, unspecified BASIC METABOLIC PANEL Routine 12/20/2024 5:38 AM EDT Essential (primary) hypertension Chronic kidney disease, unspecified BASIC METABOLIC PANEL Routine 12/16/2024 9:59 AM EDT Chronic kidney disease, stage 3 unspecified ([facility]/HCC V24, CMS/HCC V28) Anemia, unspecified COMPLETE BLOOD COUNT Routine 12/16/2024 9:59 AM EDT Chronic kidney disease, stage 3 unspecified (CMS/HCC V24, CMS/HCC V28) Anemia, unspecified MAGNESIUM Routine 12/13/2024 5:04 AM EDT Hypomagnesemia CBC WITH AUTO DIFFERENTIAL Routine 12/11/2024 5:39 AM EDT Fall on same level, unspecified, initial encounter BASIC METABOLIC PANEL Routine 12/11/2024 5:39 AM EDT Fall on same level, unspecified, initial encounter CBC AND DIFFERENTIAL Routine 12/11/2024 5:39 AM EDT Fall on same level, unspecified, initial encounter VITAMIN D 25 HYDROXY Routine 12/09/2024 5:30 AM EDT Anemia, unspecified Hyperlipidemia, unspecified Vitamin B12 deficiency anemia, unspecified Vitamin D deficiency, unspecified Chronic kidney disease, stage 3 unspecified (CMS/HCC V24, CMS/HCC V28) VITAMIN B12 AND FOLATE Routine 5:30 AM [...] stage 3 unspecified (CMS/HCC V24, CMS/HCC V28) COMPREHENSIVE METABOLIC PANEL Routine 12/09/2024 5:30 AM EDT Anemia, unspecified Hyperlipidemia, unspecified Vitamin B12 deficiency anemia, unspecified Vitamin D deficiency, unspecified Chronic kidney disease, stage 3 unspecified (CMS/HCC V24, CMS/HCC V28) COMPLETE BLOOD COUNT Routine 12/09/2024 5:30 AM EDT Anemia, unspecified Hyperlipidemia, unspecified Vitamin B12 deficiency anemia, unspecified Vitamin D deficiency, unspecified Chronic kidney disease, stage 3 unspecified (CMS/HCC V24, CMS/HCC V28) URIC ACID Routine 12/08/2024 11:30 AM EDT Essential (primary) hypertension Chronic kidney disease, stage 3 unspecified (CMS/HCC V24, CMS/HCC V28) Gout, unspecified BASIC METABOLIC PANEL Routine 12/08/2024 11:30 AM EDT Essential (primary) hypertension Chronic kidney disease, stage 3 unspecified (CMS/HCC V24, CMS/HCC V28) Gout, unspecified COMPLETE BLOOD COUNT Routine 12/08/2024 11:30 AM EDT Essential (primary) hypertension Chronic kidney disease, stage 3 unspecified (CMS/HCC V24, CMS/HCC V28) Gout, unspecified from Last 3 Months Results * (ABNORMAL) Complete blood count (02/03/2025 7:38 AM EDT) Only the most recent of10 resultswithin the time period is included. WBC 5.3 4.8 - 10.8 K/mcL LAB HEMETOLOGY METHOD 02/03/2025 11:04 AM EDT [facility] RBC 3.30(L) 3.80 - 4.80 M/mcL LAB HEMETOLOGY METHOD 02/03/2025 11:04 AM EDT [facility] Hemoglobin 10.4(L) 11.5 - 16.0 g/dL LAB [facility]OLOG[facility] Hematocrit 33.5(L) 35.0 - 47.0 % LAB HEMETOLOGY METHOD 02/03/2025 11:[address] [facility] MCV 100.6(H) 79.0 - 98.0 FL LAB HEMETOLOGY METHOD 02/03/2025 11:[address] [facility] MCH 31.2 27.0 - 32.0 pcg LAB HEMETOLOGY METHOD 02/03/2025 11:04 AM EDT [facility] MCHC 31.0(L) 32.0 - 37.0 g/dL LAB HEMETOLOGY METHOD 02/03/2025 11:[address] [facility] RDW 15.9(H) 11.0 - 15.0 % LAB HEMETOLOGY METHOD 02/03/2025 11:[address] [facility] Platelets 177 130 - 400 K/mcL LAB HEMETOLOGY METHOD 02/03/2025 11:04 AM EDT [facility] MPV 10.4 7.0 - 11.0 FL LAB HEMETOLOGY METHOD 02/03/2025 11:[address] [facility] NRBC 0.0 <1.0 % LAB HEMETOLOGY METHOD 02/03/2025 11:[address] [facility] NRBC Absolute 0.00 <0.10 K/mcL LAB HEMETOLOGY METHOD 02/03/2025 11:[address] [facility] Blood Venous blood specimen / Unknown Venipuncture / Unknown 02/03/2025 7:38 AM EDT 02/03/2025 10:39 AM EDT us Coleen Cordova MD LAB BLOOD ORDERABLES Final Resul t [facility] [address] [place], [place] [address] [phone] * (ABNORMAL) Basic metabolic panel (02/03/2025 7:35 AM EDT) Only the most recent of11 resultswithin the time period is included. Sodium 143 133 - 145 mmol/L LAB CHEMISTRY METHOD 02/03/2025 11:[address] [facility] Potassium 4.5 3.5 - 5.5 mmol/L LAB CHEMISTRY METHOD 02/03/2025 11:[address] [facility] Chloride 113(H) 96 - 110 mmol/L LAB CHEMISTRY METHOD 02/03/2025 11:[address] [facility] CO2 22 21 - 32 mmol/L LAB CHEMISTRY METHOD 02/03/2025 11:[address] [facility] Anion Gap 8 3 - 11 LAB CHEMISTRY METHOD 02/03/2025 11:[address] [facility] Glucose 75 70 - 100 mg/dL LAB CHEMISTRY METHOD 02/03/2025 11:[address] [facility] BUN 48(H) 5 - 25 mg/dL LAB CHEMISTRY METHOD 02/03/2025 11:[address] [facility] Creatinine 1.62(H) 0.50 - 1.10 mg/dL LAB CHEMISTRY METHOD 02/03/2025 11:[address] [facility] eGFR 31(L) >=60 mL/min/1. 73m2 LAB CHEMISTRY METHOD 02/03/2025 11:[address] [facility] Comment:Calculation based on the Chronic Kidney Disease Epidemiology Collaboration (CKD-EPI) equation refit without adjustment for race. BUN/Creatinine Ratio 29.6 LAB CHEMISTRY METHOD 02/03/2025 11:[address] [facility] Calcium 9.4 8.5 - 10.5 mg/dL LAB CHEMISTRY METHOD 02/03/2025 11:[address] [facility] Blood Venous blood specimen / Unknown Venipuncture / Unknown 02/03/2025 7:35 AM EDT 02/03/2025 10:39 AM EDT us Coleen Cordova MD LAB BLOOD ORDERABLES Final Resul t Performing Organization Address City/[facility]/ZIP Co de Phone Number [facility] [address] [place] [address], [place] [phone] * Clostridium difficile toxin (01/08/2025 5:40 PM EDT) Clostridium difficile GDH Antigen Negative Negative 01/09/2025 10:59 AM EDT [facility] C difficile Toxins A+B, EIA Negative Negative 01/09/2025 10:59 AM EDT [facility] Comment:NEGATIVE FOR TOXIN P RODUCING CLOSTRIDIOIDES DIFFICILE, NO ADDITIONAL TESTING IS NECESSARY. Stool Rectum structure / Unknown Non-blood Collection / Unknown 01/08/2025 5:40 PM EDT 01/09/2025 9:50 AM EDT us Coleen Cordova MD LAB MICROBIOLOGY - GENERAL ORDER TIMMY Final Result Performing Organization Address [facility] de Phone Number [facility] [address] [place] [address], [place] [phone] * Magnesium (12/13/2024 5:04 AM EDT) Magnesium 1.9 1.9 - 2.6 mg/dL LAB CHEMISTRY METHOD 12/13/2024 1:14 PM EDT [facility] Blood Venous blood specimen / Unknown Venipuncture / Unknown 12/13/2024 5:04 AM EDT 12/13/2024 10:35 AM EDT us Coleen Cordova MD LAB BLOOD ORDERABLES Final Resul t Performing Organization Address City/[facility]/ZIP Co de Phone Number [facility] [address] [place] [address], * (ABNORMAL) CBC auto differential (12/11/2024 5:39 AM EDT) [facility] WBC 10.7 4.8 - 10.8 K/mcL LAB HEMETOLOGY METHOD 12/11/2024 8:41 AM EDT [facility] RBC 3.50(L) 3.80 - 4.80 M/mcL LAB HEMETOLOGY METHOD 12/11/2024 8:41 AM EDT [facility] Hemoglobin 11.7 11.5 - 16.0 g/dL LAB HEMETOLOGY METHOD 12/11/2024 8:[address] [facility] Hematocrit 36.8 35.0 - 47.0 % LAB HEMETOLOGY METHOD 12/11/2024 8:[address] [facility] MCV 104.8(H) 79.0 - 98.0 FL LAB HEMETOLOGY METHOD 12/11/2024 8:[address] [facility] MCH 33.3(H) 27.0 - 32.0 pcg LAB HEMETOLOGY METHOD 12/11/2024 8:[address] [facility] MCHC 31.8(L) 32.0 - 37.0 g/dL LAB HEMETOLOGY METHOD 12/11/2024 8:[address] [facility] RDW 13.1 11.0 - 15.0 % LAB HEMETOLOGY METHOD 12/11/2024 8:[address] [facility] Platelets 261 130 - 400 K/mcL LAB HEMETOLOGY METHOD 12/11/2024 8:[address] [facility] MPV 10.7 7.0 - 11.0 FL LAB HEMETOLOGY METHOD 12/11[facility]24 [facility] NRBC 0.0 <1.0 % LAB HEMETOLOGY METHOD 12/11/2024 8:[address] [facility] NRBC Absolute 0.00 <0.10 K/mcL LAB HEMETOLOGY METHOD 12/11/2024 8:[address] [facility] Neutrophils Relative 86.8 % LAB HEMETOLOGY METHOD 12/11/2024 8:[address] [facility] Lymphocytes Relative 4.5 % LAB HEMETOLOGY METHOD 12/11/2024 8:[address] [facility] Monocytes Relative 7.9 % LAB HEMETOLOGY METHOD 12/11/2024 8:[address] [facility] Eosinophils Relative 0.0 % LAB HEMETOLOGY METHOD 12/11/2024 8:[address] [facility] Basophils Relative 0.1 % LAB HEMETOLOGY METHOD 12/11/2024 8:[address] [facility] Immature Granulocytes Relative 0.7 % LAB HEMETOLOGY METHOD 12/11/2024 8:[address] [facility] Neutrophils Absolute 9.29(H) 1.50 - 7.00 K/mcL LAB HEMETOLOGY METHOD 12/11/2024 8:[address] [facility] Lymphocytes Absolute 0.48(L) 1.00 - 5.00 K/mcL LAB HEMETOLOGY METHOD 12/11/2024 8:[address] [facility] Monocytes Absolute 0.84 0.20 - 1.00 K/mcL LAB HEMETOLOGY METHOD 12/11/2024 8:[address] [facility] Eosinophils Absolute 0.00 0.00 - 0.50 K/mcL LAB HEMETOLOGY METHOD 12/11/2024 8:[address] [facility] Basophils Absolute 0.01 0.00 - 0.20 K/mcL LAB HEMETOLOGY METHOD 12/11/2024 8:[address] [facility] Immature Granulocytes Absolute 0.07(H) 0.00 - 0.03 K/mcL LAB HEMETOLOGY METHOD 12/11/2024 8:41 AM EDT [facility] Blood Venous blood specimen / Unknown Venipuncture / Unknown 12/11/2024 5:39 AM EDT 12/11/2024 8:10 AM EDT us Coleen Cordova MD LAB BLOOD ORDERABLES Final Resul t Performing Organization Address [facility] de Phone Number [facility] [address] [place] [address], [place] [phone] * (ABNORMAL) Vitamin B12 and folate (12/09/2024 5:30 AM EDT) Pathologist [facility] Vitamin B-12 1,772(H) 250 - 900 pcg/mL LAB CHEMISTRY METHOD 12/09/2024 12:01 PM EDT [facility] Folate 5.0 2.8 - 17.0 ng/ml LAB CHEMISTRY METHOD 12/09/2024 12:01 PM EDT [facility] Blood Venous blood specimen / Unknown Venipuncture / Unknown 12/09/2024 5:30 AM EDT 12/09/2024 10:32 AM EDT us Coleen Cordova MD LAB BLOOD ORDERABLES Final Resul t Performing Organization Address [facility] de Phone Number [facility] [address] [place] [address], [place] [phone] * (ABNORMAL) Lipid panel with reflex to direct LDL (12/09/2024 5:30 AM EDT) Cholesterol 220(H) 0 - 200 mg/dL LAB CHEMISTRY METHOD 12/09/2024 12:03 PM EDT [facility] Triglycerides 87 0 - 150 mg/dL LAB CHEMISTRY METHOD 12/09/2024 12:03 PM EDT [facility] HDL 109 >=40 mg/dL LAB CHEMISTRY METHOD 12/09/2024 12:03 PM EDT [facility] LDL Calculated 94 0 - 100 mg/dL LAB CHEMISTRY METHOD 12/09/2024 12:03 PM EDT [facility] VLDL Cholesterol Crispin 17.4 mg/dL LAB CHEMISTRY METHOD 12/09/2024 12:03 PM EDT [facility] Non HDL Chol. (LDL+VLDL) 111 <145 mg/dL LAB CHEMISTRY METHOD 12/09/2024 12:03 PM EDT [facility] Chol/HDL Ratio 2.0 0.0 - 4.4 LAB CHEMISTRY METHOD 12/09/2024 12:03 PM EDT [facility] Blood Venous blood specimen / Unknown Venipuncture / Unknown 12/09/2024 5:30 AM EDT 12/09/2024 10:32 AM EDT Coleen Cordova MD LAB BLOOD ORDERABLES Final Resul t [facility] [address] [place] [address], [place] [phone] * (ABNORMAL) Vitamin D 25 hydroxy (12/09/2024 5:30 AM EDT) Vit D, 25-Hydroxy 28.4(L) 30.0 - 80.0 ng/mL LAB CHEMISTRY METHOD 12/09/2024 1:40 PM EDT [facility] Blood Venous blood specimen / Unknown Venipuncture / Unknown 12/09/2024 5:30 AM EDT 12/09/2024 10:32 AM EDT us Coleen Cordova MD LAB BLOOD ORDERABLES Final Resul t [facility] [address] [place], [place] [address] [phone] * (ABNORMAL) Comprehensive metabolic panel (12/09/2024 5:30 AM EDT) Sodium 140 133 - 145 mmol/L LAB CHEMISTRY METHOD 12/09/2024 12:[address] [facility] Potassium 4.1 3.5 - 5.5 mmol/L LAB CHEMISTRY METHOD 12/09/2024 12:[address] [facility] Chloride 105 96 - 110 mmol/L LAB CHEMISTRY METHOD 12/09/2024 12:[address] [facility] CO2 24 21 - 32 mmol/L LAB CHEMISTRY METHOD 12/09/2024 12:[address] [facility] Anion Gap 11 3 - 11 LAB CHEMISTRY METHOD 12/09/2024 12:[address] [facility] Glucose 88 70 - 100 mg/dL LAB CHEMISTRY METHOD 12/09/2024 12:[address] [facility] BUN 54(H) 5 - 25 mg/dL LAB CHEMISTRY METHOD 12/09/2024 12:[address] [facility] Creatinine 1.99(H) 0.50 - 1.10 mg/dL LAB CHEMISTRY METHOD 12/09/2024 12:[address] [facility] eGFR 25(L) >=60 mL/min/1. 73m2 LAB CHEMISTRY METHOD 12/09/2024 12:[address] [facility] Comment:Calculation based on the Chronic Kidney Disease Epidemiology Collaboration (CKD-EPI) equation refit without adjustment for race. BUN/Creatinine Ratio 27.1 LAB CHEMISTRY METHOD 12/09/2024 12:[address] [facility] Calcium 8.9 8.5 - 10.5 mg/dL LAB CHEMISTRY METHOD 12/09/2024 12:[address] [facility] AST (SGOT) 17 10 - 42 unit/L LAB CHEMISTRY METHOD 12/09/2024 12:[address] [facility] ALT (SGPT) 16 10 - 60 unit/L LAB CHEMISTRY METHOD 12/09/2024 12:01 PM EDT [facility] Alkaline Phosphatase 107 42 - 121 unit/L LAB CHEMISTRY METHOD 12/09/2024 12:01 PM EDT [facility] Total Protein 6.3 6.0 - 8.0 g/dL LAB CHEMISTRY METHOD 12/09/2024 12:01 PM EDT [facility] Albumin 2.9(L) 3.2 - 5.0 g/dL LAB CHEMISTRY METHOD 12/09/2024 12:01 PM EDT [facility] Total Bilirubin 0.4 0.0 - 1.4 mg/dL LAB CHEMISTRY METHOD 12/09/2024 12:01 PM EDT [facility] Blood Venous blood specimen / Unknown Venipuncture / Unknown 12/09/2024 5:30 AM EDT 12/09/2024 10:32 AM EDT us Coleen Cordova MD LAB BLOOD ORDERABLES Final Resul t Performing Organization Address City/[facility]/ZIP Co de Phone Number [facility] [address] [place] [address], [place] [phone] * Uric acid (12/08/2024 11:30 AM EDT) Uric Acid 6.0 3.1 - 7.8 mg/dL LAB CHEMISTRY METHOD 12/08/2024 12:51 PM EDT [facility] Blood Venous blood specimen / Unknown Venipuncture / Unknown 12/08/2024 11:30 AM EDT 12/08/2024 12:23 PM EDT us Coleen Cordova MD LAB BLOOD ORDERABLES Final Resul t Performing Organization Address City/[facility]/ZIP Co de Phone Number [facility] [address] [place], [place] [address] [phone] from Last 3 Months Insurance [employer] Care Teams History Professor Relationship Specialty Start Date End Date Coleen Cordova MD [address] [place] [address] [address] [place] [address] PCP - General Geriatric Medicine 12/08/24
== END 2025-02-10 11:53 | disposition home or self-care (01) ==
PROVIDERS: PCP Internal Medicine; Visit Provider Internal Medicine Cardiovascular Disease
DX: I34.0 Nonrheumatic mitral (valve) insufficiency (principal); I65.23 Occlusion and stenosis of bilateral carotid arteries
CPT/HCPCS: 99214

== ENCOUNTER → 2025-02-10 10:56 | Outpatient (BNVA) | payer MEDICARE, SELFPAY | PROVIDERS: PCP Internal Medicine; Visit Provider Internal Medicine Cardiovascular Disease | DX: I34.0 Nonrheumatic mitral (valve) insufficiency (principal); I65.23 Occlusion and stenosis of bilateral carotid arteries | CPT/HCPCS: 99212 ==